=== PATIENT | male | born 1945 | race Caucasian/White ===

== ENCOUNTER 2018-11-26 09:00 | Observation (INO) | payer MEDICARE, OTHER ==
[~2018-11-26] VITALS: Ht 200.7 cm; Wt 161.0 kg
[2018-11-26] MEDS ORDERED: ONDANSETRON 4 MG (ZOFRAN) ORAL DISSOLVE TAB PO PRN (09:15)
[2018-11-26] MEDS ORDERED: ALPRAZolam 0.25 MG (XANAX) TAB PO PRN (09:15)
[2018-11-26] MEDS ORDERED: ACETAMINOPHEN 500 MG TAB (TYLENOL) PO PRN (09:15)
[2018-11-26] MEDS ORDERED: diphenhydrAMINE 25 MG TAB (BENADRYL) PO PRN (09:15)
[2018-11-26] MEDS ORDERED: DOCUSATE SODIUM 100 MG (COLACE) CAP PO PRN (09:15)
[2018-11-26] MEDS ORDERED: HYDROcodone/APAP 5 MG/325 MG (LORTAB) TAB PO PRN (09:15)
[2018-11-26] MEDS ORDERED: CALCIUM CARBONATE 500 MG (TUMS) TAB.CHEW PO PRN (09:15)
[2018-11-26] MEDS ORDERED: MELATONIN 3 MG TABLET PO PRN (09:15)
[2018-11-26] MEDS ORDERED: ONDANSETRON 4 MG/2 ML (SDV) Z0FRAN IVP PRN (09:15)
--- OUTSIDE RECORDS SUMMARY | 2018-11-26 09:38 | XMS REPORT ---
Author Author Nanda Herman [facility] Address [address] [place], [place] [id number] Care Team Providers Care Transmission Tester Name Role Phone Nanda Herman PCP Allergies and Adverse Reactions Name Reaction Notes SULFA (SULFONAMIDE ANTIBIOTICS) Plan of Treatment Planned Activity Comments Planned Date Planned Time Plan/Goal 2D Echo Complete - Adult 03/02/2018 12:00 AM Lexiscan Cardiolite 03/02/2018 12:00 AM Medications Active Name Start Date Estimated Completion Date SIG Comments Zyrtec 10 mg oral tablet take 1 tablet (10 mg) by oral route once daily pioglitazone 15 mg oral tablet take 1 tablet (15 mg) by oral route once daily omeprazole 20 mg oral capsule,delayed release(DR/EC) take 1 capsule (20 mg) by oral route once daily before a meal meloxicam 7.5 mg oral tablet take 1 tablet (7.5 mg) by oral route once daily metformin 500 mg oral tablet extended release 24 hr take 2 tablets (1,000 mg) by oral route once daily with the evening meal sertraline 100 mg oral tablet take 1 tablet (100 mg) by oral route once daily Fish Oil 1,000 mg (120 mg-180 mg) oral capsule Pfczlixc-Ftewt-JAA(with boron) 278-597-03-1 mg oral tablet Novolog U-100 Insulin aspart 100 unit/mL subcutaneous solution inject 40 units by subcutaneous route at each meal Lantus U-100 Insulin 100 unit/mL subcutaneous solution inject 40units in AM and 80 units at HS losartan 100 mg oral tablet 03/03/2018 02/26/2019 take 1 tablet (100 mg) by oral route once daily for 90 days Bevespi Aerosphere 9-4.8 mcg inhalation HFA aerosol inhaler 03/03/2018 09/29/2018 inhale 2 puffs by inhalation route 2 times per day in the morning and evening for 30 days Problem List Description Status Onset Dyspnea on exertion Active 03/02/2018 Morbid obesity Active 03/02/2018 Type II diabetes mellitus Active 03/02/2018 Lumbar degenerative disc disease Active 03/02/2018 Immunization deficiency Active 03/02/2018 Diaphoresis Active 03/02/2018 JULIAN (obstructive sleep apnea) Active 03/02/2018 Lung anomaly Active 03/02/2018 Renal mass Active 03/02/2018 Vital Signs Date Time BP-Sys(mm[Hg] BP-Madisyn(mm[Hg]) HR(bpm) RR(rpm) Temp WT HT HC BMI BSA BMI Percentile O2 Sat(%) 03/02/2018 9:26:00 AM 152 mmHg 62 mmHg 70 bpm 20 rpm 98.1 F 377.5 lbs 79 in 42.5266 kg/m 3.0894 m 96 % Social History Name Description Comments Tobacco Former smoker Alcohol Former retired History of Procedures Date Ordered Description Order Status 03/02/2018 12:00 AM INFLUENZA VAC 4 VALENT PRSRV FREE 3 YRS PLUS IM Reviewed Results Summary Not available. History Of Immunizations Name Date Admin Mfg Name Mfg Code Trade Name Lot# Route Inj Vis Given Vis Pub CVX Influenza 03/02/2018 GlaxoSmV[employer]ine SKB Flulaval quadrivalent [id number] Intramuscular Left Deltoid 03/02/2018 06/15/2018 158 History of Past Illness Name Date of Onset Comments Dyspnea on exertion 03/02/2018 2d echo and mps. continue aspirin therapy Morbid obesity 03/02/2018 discussed diet, exercise and weight loss Type II diabetes mellitus 03/02/2018 obtain last lab results. pt with stable hba1c by report. no current medication changes Lumbar degenerative disc disease 03/02/2018 stable for now. hx of 4 back surgeries Immunization deficiency 03/02/2018 influenza vaccination Diaphoresis 03/02/2018 obtain mps and 2d echo. pt with dyspnea, diaphoresis and lower extrem edema JULIAN (obstructive sleep apnea) 03/02/2018 encouraged pt to use cpap nightly. Lung anomaly 03/02/2018 hx of partial pneumonectomy. follows with dr. quinn. known copd. continues with inhalers. Renal mass 03/02/[address] results later this week. Dyspnea on exertion Mar 02 2018 9:44AM Morbid obesity Mar 02 2018 9:44AM Type II diabetes mellitus Mar 02 2018 9:44AM Lumbar degenerative disc disease Mar 02 2018 9:44AM Immunization deficiency Mar 02 2018 9:44AM Diaphoresis Mar 02 2018 9:44AM JULIAN (obstructive sleep apnea) Mar 02 2018 9:44AM Lung anomaly Mar 02 2018 9:44AM Renal mass Mar 02 2018 9:44AM Need for influenza vaccination Mar 02 2018 9:44AM Payers Insurance Name Company Name Plan Name Plan Number Policy Number Policy Group Number Start Date Medicare RHC Medicare RHC [id number] N/A Aetna Aetna [id number] N/A Medicare Part B Medicare Of [place] [id number] N/A Medicare Part A Medicare - Lab/Xray [id number] N/A History of Encounters Visit Date Visit Type Provider 03/02/2018 Office visit Nanda Herman MD 05/30/2015 [facility] Madelin Manzano MD 05/21/2015 [facility] Demarco Ford MD 11/13/2014 [facility] Demarco Ford MD
--- OUTSIDE RECORDS SUMMARY | 2018-11-26 09:38 | XMS REPORT | CCD ---
Author Author FREEMAN LANCE PEARSON Organization Unknown Address [address] [facility] [address] [place], [place] [id number] Care Team Providers Care Associate Publisher Name Role Phone RHONDA CHE, DANNIELLE DEMARCO Attphys F., DALY NASST C., LISA NASST M., LORENZA Gracai NASST C., TARYN Luis NASST S., LISA NASST P., PETRA NASST K., TARYN Gracia NASST R., CARLA Gracia NASST Vital Signs Vital Sign Value Unit Date/Time Recent/Initial? Weight Measured 385 lbs 05/21/2015 11:02 Initial VS Height 79 in 05/21/2015 11:02 Initial VS BMI (Body Mass Index) 43.37 kg/m^2 05/21/2015 11:02 Initial VS BSA (Body Surface Area) 3.12 m^2 05/21/2015 11:02 Initial VS BP Systolic 166 mmHg 05/24/2015 14:34 Initial VS BP Diastolic 68 mmHg 05/24/2015 14:34 Initial VS Respiratory Rate 16 bpm 05/24/2015 14:34 Initial VS Heart Rate 78 bpm 05/24/2015 14:34 Initial VS O2 % BldC Oximetry 96 % 05/24/2015 14:34 Initial VS Body Temperature 97.4 degrees 05/24/2015 14:34 Initial VS BP Systolic 118 mmHg 06/01/2015 15:31 Most Recent VS BP Diastolic 55 mmHg 06/01/2015 15:31 Most Recent VS Respiratory Rate 18 bpm 06/01/2015 15:31 Most Recent VS Heart Rate 102 bpm 06/01/2015 15:31 Most Recent VS O2 % BldC Oximetry 94 % 06/01/2015 15:31 Most Recent VS Body Temperature 99 degrees 06/01/2015 17:00 Most Recent VS Allergies Allergy Code Allergy Type Reaction Status SULFA (sulfonamide) 0 Drug allergy Active MORPHINE 7052 Drug allergy Active Procedures Procedure Code Procedure Type Date Replacement of Left Knee Joint with Synthetic Substitute, Cemented, Open A [id number] ICD-10 PCS 05/30/2015 OXYGEN/HOUR 609001660 SNOMED CT 05/30/2015 THERAPEP TREATMENT 227692171 SNOMED CT 05/30/2015 THERAPEP SUBSEQUENT 250492432 SNOMED CT 05/30/2015 THERAPEP SUBSEQUENT 917632045 SNOMED CT 05/31/2015 THERAPEP SUBSEQUENT 560940537 SNOMED CT 05/31/2015 THERAPEP SUBSEQUENT 178647345 SNOMED CT 05/31/2015 THERAPEP SUBSEQUENT 088086292 SNOMED CT 05/31/2015 THERAPEP SUBSEQUENT 823660812 SNOMED CT 06/01/2015 BEDSIDE GLUCOSE 65657588 SNOMED CT 05/30/2015 CBC W/ AUTO DIFF (RFLX MAN DIFF IF IND) 4765653 SNOMED CT 05/31/2015 CBC W/ AUTO DIFF (RFLX MAN DIFF IF IND) 5320264 SNOMED CT 06/01/2015 BEDSIDE GLUCOSE 43618221 SNOMED CT 05/30/2015 BEDSIDE GLUCOSE 84504104 SNOMED CT 05/30/2015 BASIC METABOLIC PANEL 824586005 SNOMED CT 05/31/2015 BEDSIDE GLUCOSE 68103938 SNOMED CT 05/31/2015 ^CBC W/AUTO DIFF 0457861 SNOMED CT 05/31/2015 BEDSIDE GLUCOSE 38566728 SNOMED CT 05/31/2015 UA W/MICRO C&S IF IND 506330707 SNOMED CT 05/31/2015 BASIC METABOLIC PANEL 211311113 SNOMED CT 06/01/2015 BEDSIDE GLUCOSE 39662095 SNOMED CT 05/31/2015 BEDSIDE GLUCOSE 91932147 SNOMED CT 05/31/2015 BEDSIDE GLUCOSE 94548027 SNOMED CT 06/01/2015 ^CBC W/AUTO DIFF 3360872 SNOMED CT 06/01/2015 BEDSIDE GLUCOSE 80781835 SNOMED CT 06/01/2015 KNEE 1V OR 2V 88586377 SNOM[address] CT 05/30/2015 CX CHEST [address] 05/31/2015 PT EVALUATION 266392508 SNOM[address] CT 05/30/2015 PT GROUP THERAPY 170461951 SNOMED CT 05/31/2015 PT GROUP THERAPY 009157700 SNOMED CT 05/31/2015 PT GROUP THERAPY 208192384 [facility] 06/01/2015 PT GAIT TRAINING/STAIRS EA 15 MIN 56197891 [facility] CT 06/01/2015 PT GROUP THERAPY 434142367 [facility] CT 06/01/2015 History of Immunizations Immunization Code Date Td (adult), adsorbed 09/13/2004 Td (adult), adsorbed 12/17/2006 influenza, split (incl. purified surface antigen) 15 03/27/1997 influenza, split (incl. purified surface antigen) 15 04/09/1998 influenza, split (incl. purified surface antigen) 15 03/18/1999 influenza, split (incl. purified surface antigen) 15 05/13/2000 influenza, split (incl. purified surface antigen) 15 04/14/2001 influenza, split (incl. purified surface antigen) 15 04/06/2002 influenza, split (incl. purified surface antigen) 15 04/18/2003 influenza, split (incl. purified surface antigen) 15 05/03/2004 influenza, split (incl. purified surface antigen) 15 04/21/2005 influenza, split (incl. purified surface antigen) 15 04/13/2006 influenza, split (incl. purified surface antigen) 15 03/15/2007 influenza, split (incl. purified surface antigen) 15 03/22/2008 pneumococcal polysaccharide PPV23 33 04/20/2000 pneumococcal polysaccharide PPV23 33 03/30/2012 Influenza, seasonal, injectable 141 03/12/2013 Influenza, seasonal, injectable 141 03/31/2014 Influenza, seasonal, injectable 141 04/15/2015 Problems Problem Code Start Date Resolved Date Status Primary osteoarthritis of left knee 683346690 05/30/2015 Active Post op pain 760582484 05/30/2015 Active Status post knee replacement 1905953141835 05/30/2015 Active Results BASIC METABOLIC PANEL - Collect Date/Time: 06/01/2015 06:00 Test Name Code Test Result Test Units Test Ref Range GLUCOSE 2345-7 229 MG/DL L=70 H=100 SODIUM 2951-2 132 MEQ/L L=135 H=148 POTASSIUM 2823-3 4.1 MEQ/L L=3.5 H=5.3 CHLORIDE 2075-0 104 MEQ/L L=96 H=110 CO2 2028-9 20 MEQ/L L=22 H=29 BUN 3094-0 15 MG/DL L=8 H=22 CREATININE 2160-0 0.9 MG/DL L=0.6 H=1.6 CALCIUM 55447-5 8.9 MG/DL L=8.2 H=10.6 AGE 69 yrs GFR NonAA 84 GFR AA 102 eGFR >60 N/A eGFR AA* >60 N/A BASIC METABOLIC PANEL - Collect Date/Time: 05/31/2015 06:30 Test Name Code Test Result Test Units Test Ref Range GLUCOSE 2345-7 196 MG/DL L=70 H=100 SODIUM 2951-2 132 MEQ/L L=135 H=148 POTASSIUM 2823-3 4.5 MEQ/L L=3.5 H=5.3 CHLORIDE 2075-0 101 MEQ/L L=96 H=110 CO2 2028-9 22 MEQ/L L=22 H=29 BUN 3094-0 21 MG/DL L=8 H=22 CREATININE 2160-0 1.1 MG/DL L=0.6 H=1.6 CALCIUM 22730-2 8.7 MG/DL L=8.2 H=10.6 AGE 69 yrs GFR NonAA 67 GFR AA 81 eGFR >60 N/A eGFR AA* >60 N/A BEDSIDE GLUCOSE - Collect Date/Time: 06/01/2015 11:33 Test Name Code Test Result Test Units Test Ref Range GLUCOSE POCT 236 MG/DL L=70 H=100 BEDSIDE GLUCOSE - Collect Date/Time: 06/01/2015 05:25 Test Name Code Test Result Test Units Test Ref Range GLUCOSE POCT 206 MG/DL L=70 H=100 BEDSIDE GLUCOSE - Collect Date/Time: 05/31/2015 20:51 Test Name Code Test Result Test Units Test Ref Range GLUCOSE POCT 149 MG/DL L=70 H=100 BEDSIDE GLUCOSE - Collect Date/Time: 05/31/2015 16:46 Test Name Code Test Result Test Units Test Ref Range GLUCOSE POCT 190 MG/DL L=70 H=100 BEDSIDE GLUCOSE - Collect Date/Time: 05/31/2015 11:49 Test Name Code Test Result Test Units Test Ref Range GLUCOSE POCT 224 MG/DL L=70 H=100 BEDSIDE GLUCOSE - Collect Date/Time: 05/31/2015 06:31 Test Name Code Test Result Test Units Test Ref Range GLUCOSE POCT 198 MG/DL L=70 H=100 BEDSIDE GLUCOSE - Collect Date/Time: 05/30/2015 21:04 Test Name Code Test Result Test Units Test Ref Range GLUCOSE POCT 228 MG/DL L=70 H=100 BEDSIDE GLUCOSE - Collect Date/Time: 05/30/2015 15:48 Test Name Code Test Result Test Units Test Ref Range GLUCOSE POCT 328 MG/DL L=70 H=100 BEDSIDE GLUCOSE - Collect Date/Time: 05/30/2015 11:52 Test Name Code Test Result Test Units Test Ref Range GLUCOSE POCT 253 MG/DL L=70 H=100 CBC W/ AUTO DIFF (RFLX MAN DIFF IF IND) - Collect Date/Time: 06/01/2015 06:00 Test Name Code Test Result Test Units Test Ref Range WBC 62338-9 8.9 TH/CMM L=4.5 H=10.8 RBC 789-8 3.34 ML/CMM L=4.70 H=6.10 HGB 718-7 10.4 G/DL L=14.0 H=18.0 HCT 4544-3 32.4 % L=42.0 H=52.0 MCV 97 FL L=81 H=99 MCH 31.1 PG L=27.0 H=33.0 MCHC 32.1 G/DL L=31.0 H=36.0 RDW SD 62 FL L=36 H=50 RDW CV 17.6 % L=0.0 H=14.8 MPV 11.0 FL L=9.3 H=12.5 PLT 777-3 107 TH/CMM L=130 H=440 NRBC# 0.00 TH/CMM L=0.00 H=0.00 NRBC% 0.0 /100WBC L=0.0 H=2.0 %NEUT 64.2 % %LYMP 19.4 % %MONO 15.2 % %EOS 1.1 % %BASO 0.1 % #NEUT 5.73 TH/CMM L=2.10 H=8.20 #LYMP 1.73 TH/CMM L=0.90 H=5.20 #MONO 1.36 TH/CMM L=0.16 H=1.00 #EOS 0.10 TH/CMM L=0.00 H=0.80 #BASO 0.01 TH/CMM L=0.00 H=0.20 MANUAL DIFF NOT IND N/A CBC W/ AUTO DIFF (RFLX MAN DIFF IF IND) - Collect Date/Time: 05/31/2015 06:30 Test Name Code Test Result Test Units Test Ref Range WBC 30214-8 8.9 TH/CMM L=4.5 H=10.8 RBC 789-8 3.68 ML/CMM L=4.70 H=6.10 HGB 718-7 11.3 G/DL L=14.0 H=18.0 HCT 4544-3 35.7 % L=42.0 H=52.0 MCV 97 FL L=81 H=99 MCH 30.7 PG L=27.0 H=33.0 MCHC 31.7 G/DL L=31.0 H=36.0 RDW SD 62 FL L=36 H=50 RDW CV 17.4 % L=0.0 H=14.8 MPV 10.6 FL L=9.3 H=12.5 PLT 777-3 115 TH/CMM L=130 H=440 NRBC# 0.00 TH/CMM L=0.00 H=0.00 NRBC% 0.0 /100WBC L=0.0 H=2.0 %NEUT 59.9 % %LYMP 24.9 % %MONO 13.1 % %EOS 1.9 % %BASO 0.2 % #NEUT 5.34 TH/CMM L=2.10 H=8.20 #LYMP 2.22 TH/CMM L=0.90 H=5.20 #MONO 1.17 TH/CMM L=0.16 H=1.00 #EOS 0.17 TH/CMM L=0.00 H=0.80 #BASO 0.02 TH/CMM L=0.00 H=0.20 MANUAL DIFF NOT IND N/A UA W/MICRO C&S IF IND - Collect Date/Time: 05/31/2015 17:30 Test Name Code Test Result Test Units Test Ref Range COLOR YELLOW N/A NL: YELLOW APPEARANCE CLEAR N/A NL: CLEAR SPEC GRAV 1.020 N/A NL: 1.002 - 1.022 pH 5.5 N/A NL: 5 - 9 PROTEIN NEGATIVE N/A NL: NEGATIVE mg/dl GLUCOSE NEGATIVE N/A NL: NEGATIVE mg/dl KETONE TRACE N/A NL: NEGATIVE mg/dl BILIRUBIN NEGATIVE N/A NL: NEGATIVE BLOOD SMALL N/A NL: NEGATIVE NITRITE NEGATIVE N/A NL: NEGATIVE LEUK SCREEN TRACE N/A NL: NEGATIVE WBC/HPF 0-5 N/A NL: NEGATIVE RBC/HPF RARE N/A NL: NEGATIVE CASTS/LPF NEGATIVE N/A NL: NEGATIVE CRYSTALS NEGATIVE N/A NL: NEGATIVE MUCOUS THRDS NEGATIVE N/A NL: NEGATIVE BACTERIA NEGATIVE N/A NL: NEGATIVE EPITH CELLS NEGATIVE N/A NL: NEGATIVE TRICHOMONAS NEGATIVE N/A NL: NEGATIVE YEAST NEGATIVE N/A NL: NEGATIVE CULT SET UP? NO N/A Active Medications Medication Code Dose Units Frequency Route Modification Start Date/Time Aspirin 325MG Oral Tablet, Enteric Coated 725224 1 TABLET EVERY 12 HOURS BY MOUTH 05/31/2015 17:18 Prescription Detail 1 TABLET BY MOUTH EVERY 12 HOURS begin 24hrs after the last xarelto dose Combivent Respimat 100MCG-20MCG/Actuati Inhalation [place] 6663783 1 PUFF TWO TIMES A DAY INHALATION 05/31/2015 17:15 Prescription Detail 1 PUFF INHALATION TWO TIMES A DAY Docusate Sodium 100MG Oral Capsule 9273391 1 TABLET TWO TIMES A DAY BY MOUTH 05/31/2015 17:15 Prescription Detail 1 TABLET BY MOUTH TWO TIMES A DAY Hold with loose stools glipiZIDE 10MG Oral Tablet 931298 10 MILLIGRAMS DAILY ORAL 05/31/2015 17:15 Prescription Detail 10 MILLIGRAMS ORAL DAILY GLUCOSAMINE/CHONDROITIN 0 1 EACH TWO TIMES A DAY ORAL 05/31/2015 17:15 Prescription Detail 1 EACH ORAL TWO TIMES A DAY Levemir 100U/1ML Subcutaneous Solution 687636 70 UNIT AT BEDTIME SUBCUTANEOUS 05/31/2015 17:15 Prescription Detail 70 UNIT SUBCUTANEOUS AT BEDTIME Lisinopril 20MG Oral Tablet 776517 20 MILLIGRAMS DAILY ORAL 05/31/2015 17:15 Prescription Detail 20 MILLIGRAMS ORAL DAILY NovoLOG 100U/1ML Subcutaneous Solution 791054 32 UNIT THREE TIMES A DAY SUBCUTANEOUS 05/31/2015 17:15 Prescription Detail 32 UNIT SUBCUTANEOUS THREE TIMES A DAY Ocuvite Oral Tablet 898886 1 EACH DAILY ORAL 05/31/2015 17:15 Prescription Detail 1 EACH ORAL DAILY oxyCODONE HCl-acetaminophen 5MG-325MG Oral Tablet 4594898 1 - 2 TABLET NEEDED EVERY 4 HR BY MOUTH 05/31/2015 17:15 Prescription Detail 1 - 2 TABLET BY MOUTH NEEDED EVERY 4 HR Proventil HFA 0.09MG/1INH Inhalation Aerosol Powder 286402 1 PUFF NEEDED INHALATION 05/31/2015 17:15 Prescription Detail 1 PUFF INHALATION NEEDED Sertraline 100MG Oral Tablet 436122 100 MILLIGRAMS DAILY ORAL 05/31/2015 17:15 Prescription Detail 100 MILLIGRAMS ORAL DAILY Thera-M Enhanced 90MG-0.03MG-0.15MG-4 Oral Tablet 344489 1 TABLET DAILY BY MOUTH 05/31/2015 17:15 Prescription Detail 1 TABLET BY MOUTH DAILY VITAMIN B-12 0 500 MICROGRAM TWO TIMES A DAY ORAL 05/31/2015 17:15 Prescription Detail 500 MICROGRAM ORAL TWO TIMES A DAY Xarelto 10MG Oral Tablet 0832586 1 TABLET DAILY BY MOUTH 05/31/2015 17:15 Prescription Detail 1 TABLET BY MOUTH DAILY Medications Administered During Visit Medication Dose Units Frequency Route Date/Time of Last Dose LR 1000ML IV [PREDEFINED] CONT IV IV 05/31/2015 00:39 TEMAZEPAM [RESTORIL] CAPSULE : 7.5 MG 1 MG PRN PO 05/31/2015 20:01 CEFAZOLIN [ANCEF] 2 GM IV PREMIX BAG Q6H IVPB 05/31/2015 06:14 VITAMIN (LH SUB FOR ALL MULTIVITAMINS) 1 TAB DAILY PO 06/01/2015 08:19 ASCORBIC ACID [VITAMIN C] TAB : 500 MG 500 MG DAILY PO 06/01/2015 08:19 FERROUS SULFATE 325MG TABLET 325 MG BID PO 06/01/2015 08:19 DOCUSATE SODIUM 100 MG [COLACE] CAPSULE 100 MG BID PO 06/01/2015 08:19 TAMSULOSIN [FLOMAX] CAP: 0.4MG 0.4 MG DAILY PO 06/01/2015 08:19 RIVAROXABAN [XARELTO] TABLET : 10MG 10 MG X1 PO 05/31/2015 11:43 RIVAROXABAN [XARELTO] TABLET : 10MG 10 MG DAILY PO 06/01/2015 08:19 HYDROmorphone [DILAUDID] INJ: 2MG/ML 1 MG PRN Q 1 HR IVP 05/31/2015 23:05 NORCO [HYDROCODONE/APAP] 10/325MG TAB 1 TAB PRN PO 05/30/2015 23:11 COMBIVENT INHALER (IPATROPIUM/ALBUTEROL) 1 EA BID INHALE 06/01/2015 08:19 LISINOPRIL 20MG TAB 20 MG DAILY PO 06/01/2015 08:19 SERTRALINE [ZOLOFT] TABLET: 50 MG 100 MG DAILY PO 06/01/2015 08:19 CYANOCOBALAMIN [VITAMIN B12] TAB:1000MCG 500 MCG BID PO 06/01/2015 08:19 GLIPIZIDE [GLUCOTROL] TABLET: 5 MG 10 MG ACSUPPER PO 05/31/2015 17:18 INSULIN [NOVOLOG] 100UNITS/ML (SQ) 10ML 6 Unit(s) PRN SUB Q 06/01/2015 11:42 INSULIN [LEVEMIR] 100UNITS/ML 10ML VIAL 70 UNIT HS SQ 05/31/2015 21:11 INSULIN [NOVOLOG] 100UNITS/ML (SQ) 10ML 25 EA AC SUB Q 05/31/2015 11:50 PERCOCET 5/325 MG TABLET (ROXICET) 1 TAB PRN PO 06/01/2015 16:11 INSULIN [NOVOLOG] 100UNITS/ML (SQ) 10ML 32 EA AC SUB Q 06/01/2015 11:51 LEVOFLOXACIN [LEVAQUIN] TABLET: 750MG 750 MG DAILY PO 06/01/2015 13:55 Encounters Encounter Diagnosis Diagnosis Code Start Date Unilateral primary osteoarthritis, left knee M1712 05/30/2015 Social History Smoking Status Code Start Date End Date Never smoker [id number] Patient Decision Aids Patient Decision Aid PAIN MANAGEMENT AT HOME PATIENT PORTAL ACCESS Discharge Instructions You were admitted to [facility] on 05/30/2015 with a principal diagnosis of Unilateral primary osteoarthritis, left knee. You were discharged from [facility] on 06/01/2015. Should you have any questions prior to discharge, please contact a member of your healthcare team. If you have left the hospital and have any questions, please contact your primary care physician. HOME DIET: as before hospitalization CONDITION AT DISMISSAL Stable. SPECIAL INSTRUCTIONS: Take Xarelto 10mg pill by mouth daily for 10 days.When taking Xarelto do not take Ibuprofen, motrin, advil, aleve, and mobic. 24 hours after the last Xarelto pill start taking Aspirin 325mg pill by mouth 2 times a day for 4 weeks. SCRIPTS WRITTEN BY DOCTOR GIVEN TO PATIENT? Yes, for what? docusate sodium, Xarelto, Percocet, Aspirin, outpatient therapy Education performed on new medications. Verbalizes understanding of instructions. PRIMARY CARE PHYSICIAN OR PRACTITIONER: Dannielle Gallo MD, . INSTRUCTIONS GIVEN AND DISCHARGE TO: Terrell newman. VOICES UNDERSTANDING OF INSTRUCTIONS: Yes. INSTRUCTIONS GIVEN BY (TYPE IN NAME AND DATE) Lisa Amezquita RN 06/01/15 CHIEF COMPLAINT: C/O JOINT PAIN Chief Complaint and Reason For Visit Chief Complaint Date of Onset TOTAL KNEE LEFT Function Status Unknown or Not Available. Plan of Care Unknown or Not Available. Referral/Transition of Care Unknown or Not Available.
--- OUTSIDE RECORDS SUMMARY | 2018-11-26 09:38 | XMS REPORT ---
Author Author Nanda Herman [facility] Address [address] [place], [place] [id number] Care Team Providers Care Chief Controller Station Name Role Phone Nanda Herman PCP Allergies and Adverse Reactions Name Reaction Notes SULFA (SULFONAMIDE ANTIBIOTICS) Plan of Treatment Not available. Medications Active Name Start Date Estimated Completion [...] 1,000 mg (120 mg-180 mg) oral capsule Ubjfjwum-Uzabr-QUF(with boron) 812-833-70-1 mg oral tablet Novolog U-100 Insulin aspart [...] Ordered Description Order Status 03/02/2018 12:00 AM TTE W/DOPPLER COMPLETE Reviewed 03/02/2018 12:00 AM MYOCARDIAL SPECT MULTIPLE STUDIES Reviewed 03/02/2018 12:00 AM INFLUENZA VAC 4 VALENT PRSRV FREE 3 YRS PLUS IM Reviewed Results Summary Not available. History Of Immunizations Name Date Admin Mfg Name Mfg Code Trade Name Lot# Route Inj Vis Given Vis Pub CVX Influenza 03/02/2018 [employer] SKB Flulaval quadrivalent [id number] Intramuscular Left Deltoid [...] Number Policy Group Number Start Date Medicare C Medicare RHC [id number] N/A Aetna Aetna [id number] N/A Medicare Part B Medicare Of [place] [id number] N/A Medicare Part A Medicare - Lab/Xray [id number] N/A History of Encounters Visit Date Visit Type Provider 03/02/2018 Office visit Nanda Herman MD 05/30/2015 [facility] Madelin Manzano MD 05/21/2015 [facility] Demarco Ford MD 11/13/2014 [facility] Demarco Ford MD
--- OUTSIDE RECORDS SUMMARY | 2018-11-26 09:38 | XMS REPORT ---
Discharge Summary 2.1 Created on: ISELA YEE : 1945 Sex: Male Author Author MARLENE CAAL Unknown Address [address] [place], [place] [id number] Care Team Providers Care Screen Cleaner Name Role Phone Xwatchlist DALY SÁNCHEZ Xwatchlist VITOR LORENZ MD Anesth RHONDA DEMARCO MD Attending STEPHIE Torres MD Dock Coordinator [facility] ELIEZER Chambers MD [facility] Functional Status No Data Found Immunization Immunization Date Status Additional Notes Code Code System Td (adult), 2 Lf tetanus toxoid, preservative free, adsorbed 09/13/2004 Completed 09 CVX Td (adult), 2 Lf tetanus toxoid, preservative free, adsorbed 12/17/2006 Completed 09 CVX influenza, split (incl. purified surface antigen) 03/27/1997 Completed 15 CVX influenza, split (incl. purified surface antigen) 04/09/1998 Completed 15 CVX influenza, split (incl. purified surface antigen) 03/18/1999 Completed 15 CVX influenza, split (incl. purified surface antigen) 05/13/2000 Completed 15 CVX influenza, split (incl. purified surface antigen) 04/14/2001 Completed 15 CVX influenza, split (incl. purified surface antigen) 04/06/2002 Completed 15 CVX influenza, split (incl. purified surface antigen) 04/18/2003 Completed 15 CVX influenza, split (incl. purified surface antigen) 05/03/2004 Completed 15 CVX influenza, split (incl. purified surface antigen) 04/21/2005 Completed 15 CVX influenza, split (incl. purified surface antigen) 04/13/2006 Completed 15 CVX influenza, split (incl. purified surface antigen) 03/15/2007 Completed 15 CVX influenza, split (incl. purified surface antigen) 03/22/2008 Completed 15 CVX pneumococcal polysaccharide PPV23 04/20/2000 Completed 33 CVX pneumococcal polysaccharide PPV23 03/30/2012 Completed 33 CVX influenza, unspecified formulation 02/13/2018 Completed 88 CVX pneumococcal, unspecified formulation 03/15/2017 Completed 109 CVX Pneumococcal conjugate PCV 13 07/03/2015 Completed 133 CVX Influenza, high dose seasonal 03/18/2016 Completed 135 CVX Influenza, high dose seasonal 04/07/2017 Completed 135 CVX Influenza, seasonal, injectable 03/12/2013 Completed 141 CVX Influenza, seasonal, injectable 03/31/2014 Completed 141 CVX Influenza, seasonal, injectable 04/15/2015 Completed 141 CVX influenza, injectable, quadrivalent 03/02/2018 Completed 158 CVX Mental Status No Data Found Results BEDSIDE GLUCOSE - Collect Date/Time: 04/02/2018 16:28 [employer] ID: [id number] [address], [place], [place], [id number] [facility] Materialise ID: [id number] [address], [place], [place], [address] LOINC: 98211-0 Test Value Unit Reference Range Code Code System GLUCOSE POCT 271 MG/DL L=70 H=100 02979-4 LOINC BEDSIDE GLUCOSE - Collect Date/Time: 04/02/2018 12:13 [employer] ID: [id number] [address], [place], [place], [id number] [facility] Materialise ID: [id number] [address], [place], [place], [address] LOINC: 05739-1 Test Value Unit Reference Range Code Code System GLUCOSE POCT 332 MG/DL L=70 H=100 27309-0 LOINC BEDSIDE GLUCOSE - Collect Date/Time: 04/02/2018 08:17 [facility] Materialise ID: [id number] [address], [place], [place], [id number] [facility] ID: [id number] [address], [place], [place], [id number] LOINC: 55068-4 Test Value Unit Reference Range Code Code System GLUCOSE POCT 256 MG/DL L=70 H=100 96781-1 LOINC CBC W/ AUTO DIFF (RFLX MAN DIFF IF IND) - Collect Date/Time: 04/02/2018 06:15 [facility] ID: [id number] [address] [facility] [address], [place], [place], [id number] [facility] [employer] [facility] ID: [id number] [address] [facility] [address] [place], [place], [address] LOINC: 50965-2 Test Value Unit Reference Range Code Code System WBC 8.8 TH/CMM L=4.5 H=10.8 62688-5 LOINC RBC 3.71 ML/CMM L=4.70 H=6.10 789-8 LOINC HGB 11.4 G/DL L=14.0 H=18.0 718-7 LOINC HCT 36.0 % L=42.0 H=52.0 4544-3 LOINC MCV 97 FL L=81 H=99 MCH 30.7 PG L=27.0 H=33.0 MCHC 31.7 G/DL L=31.0 H=36.0 RDW SD 62 FL L=36 H=50 RDW CV 17.2 % L=0.0 H=14.8 MPV 10.4 FL L=9.3 H=12.5 PLT 95 TH/CMM L=130 H=440 777-3 LOINC NRBC# 0.00 TH/CMM L=0.00 H=0.00 NRBC% 0.0 /100WBC L=0.0 H=2.0 %NEUT 63.2 % %LYMP 21.0 % %MONO 13.5 % %EOS 1.3 % %BASO 0.3 % #NEUT 5.56 TH/CMM L=2.10 H=8.20 #LYMP 1.85 TH/CMM L=0.90 H=5.20 #MONO 1.19 TH/CMM L=0.16 H=1.00 #EOS 0.11 TH/CMM L=0.00 H=0.80 #BASO 0.03 TH/CMM L=0.00 H=0.20 MANUAL DIFF NOT IND BEDSIDE GLUCOSE - Collect Date/Time: 04/01/2018 21:07 [facility] [employer] ID: [id number] [address], [place], [place], [address] [employer] ID: [id number] [address], [place], [place], [address] LOINC: 73054-3 Test Value Unit Reference Range Code Code System GLUCOSE POCT 315 MG/DL L=70 H=100 36473-3 [facility] BEDSIDE GLUCOSE - Collect Date/Time: 04/01/2018 17:20 [facility] ID: [id number] [address], [place], [place], [address] [employer] ID: [id number] [address], [place], [place], [address] LOINC: 12775-7 Test Value Unit Reference Range Code Code System GLUCOSE POCT 230 MG/DL L=70 H=100 05365-3 [facility] BEDSIDE GLUCOSE - Collect Date/Time: 04/01/2018 11:48 [facility] ID: [id number] [address], [place], [place], [address] [facility] ID: [id number] [address], [place], [place], [address] LOINC: 52658-2 Test Value Unit Reference Range Code Code System GLUCOSE POCT 271 MG/DL L=70 H=100 82405-0 LOINC BEDSIDE GLUCOSE - Collect Date/Time: 04/01/2018 07:45 [facility] ID: [id number] [address], [place], [place], [address] [facility] ID: [id number] [address], [place], [place], [address] LOINC: 64941-4 Test Value Unit Reference Range Code Code System GLUCOSE POCT 169 MG/DL L=70 H=100 36526-8 LOINC HEMOGLOBIN A1C - Collect Date/Time: 04/01/2018 06:45 [facility] ID: [id number] [address], [place], [place], [address] [facility] ID: [id number] [address], [place], [place], [address] LOINC: 82688-5 Test Value Unit Reference Range Code Code System HGB A1C 6.2 % L=4.0 H=6.4 34358-7 LOINC Est Avg Glucose 131.2 mg/dL 36504-0 LOINC LIPID PANEL - Collect Date/Time: 04/01/2018 06:45 [facility] ID: [id number] [address], [place], [place], [address] [facility] ID: [id number] [address], [place], [place], [address] LOINC: 27314-9 Test Value Unit Reference Range Code Code System TRIGLYCERIDES 96 MG/DL L=0 H=135 3043-7 LOINC CHOLESTEROL 99 MG/DL L=0 H=199 2093-3 LOINC HDL 32 MG/DL L=27 H=67 2085-9 LOINC TOT CHOL/HDL 3.1 L=0.0 H=5.0 LDL (CALC) 48 MG/DL L=0 H=129 79756-2 LOINC CBC W/ AUTO DIFF (RFLX MAN DIFF IF IND) - Collect Date/Time: 04/01/2018 06:45 [facility] ID: [id number] [address], [place], [place], [id number] [facility] [employer] [facility] ID: [id number] [address], [place], [place], [address] LOINC: 76288-1 Test Value Unit Reference Range Code Code System WBC 7.9 TH/CMM L=4.5 H=10.8 35514-4 LOINC RBC 3.83 ML/CMM L=4.70 H=6.10 789-8 LOINC HGB 11.8 G/DL L=14.0 H=18.0 718-7 LOINC HCT 37.9 % L=42.0 H=52.0 4544-3 LOINC MCV 99 FL L=81 H=99 MCH 30.8 PG L=27.0 H=33.0 MCHC 31.1 G/DL L=31.0 H=36.0 RDW SD 61 FL L=36 H=50 RDW CV 16.9 % L=0.0 H=14.8 MPV 10.8 FL L=9.3 H=12.5 PLT 98 TH/CMM L=130 H=440 777-3 LOINC NRBC# 0.00 TH/CMM L=0.00 H=0.00 NRBC% 0.0 /100WBC L=0.0 H=2.0 %NEUT 71.6 % %LYMP 15.5 % %MONO 11.0 % %EOS 1.0 % %BASO 0.4 % #NEUT 5.66 TH/CMM L=2.10 H=8.20 #LYMP 1.23 TH/CMM L=0.90 H=5.20 #MONO 0.87 TH/CMM L=0.16 H=1.00 #EOS 0.08 TH/CMM L=0.00 H=0.80 #BASO 0.03 TH/CMM L=0.00 H=0.20 MANUAL DIFF NOT IND BEDSIDE GLUCOSE - Collect Date/Time: 04/01/2018 02:32 [facility] ID: [id number] [address], [place], [place], [address] [facility] ID: [id number] [address], [place], [place], [address] LOINC: 45130-8 Test Value Unit Reference Range Code Code System GLUCOSE POCT 139 MG/DL L=70 H=100 20331-3 LOINC BEDSIDE GLUCOSE - Collect Date/Time: 03/31/2018 23:20 [facility] [employer] ID: [id number] [address], [place], [place], [address] [employer] ID: [id number] [address], [place], [place], [address] LOINC: 72566-4 Test Value Unit Reference Range Code Code System GLUCOSE POCT 149 MG/DL L=70 H=100 78219-9 LOINC BEDSIDE GLUCOSE - Collect Date/Time: 03/31/2018 20:32 [facility] [employer] ID: [id number] [address], [place], [place], [address] [employer] ID: [id number] [address], [place], [place], [address] LOINC: 34905-3 Test Value Unit Reference Range Code Code System GLUCOSE POCT 172 MG/DL L=70 H=100 10628-6 LOINC BEDSIDE GLUCOSE - Collect Date/Time: 03/31/2018 17:20 [facility] ID: [id number] [address], [place], [place], [address] [facility] ID: [id number] [address], [place], [place], [address] LOINC: 14335-4 Test Value Unit Reference Range Code Code System GLUCOSE POCT 148 MG/DL L=70 H=100 56975-6 LOINC BEDSIDE GLUCOSE - Collect Date/Time: 03/31/2018 15:54 [facility] ID: [id number] [address], [place], [place], [address] [facility] ID: [id number] [address], [place], [place], [address] LOINC: 05649-9 Test Value Unit Reference Range Code Code System GLUCOSE POCT 162 MG/DL L=70 H=100 41170-4 LOINC CBC W/ AUTO DIFF (RFLX MAN DIFF IF IND) - Collect Date/Time: 03/31/2018 13:00 [facility] ID: [id number] [address], [place], [place], [address] [facility] ID: [id number] [address], [place], [place], [address] LOINC: 92224-8 Test Value Unit Reference Range Code Code System WBC 6.1 TH/CMM L=4.5 H=10.8 97104-1 LOINC RBC 4.63 ML/CMM L=4.70 H=6.10 789-8 LOINC HGB 14.1 G/DL L=14.0 H=18.0 718-7 LOINC HCT 45.0 % L=42.0 H=52.0 4544-3 LOINC MCV 97 FL L=81 H=99 MCH 30.5 PG L=27.0 H=33.0 MCHC 31.3 G/DL L=31.0 H=36.0 RDW SD 58 FL L=36 H=50 RDW CV 16.1 % L=0.0 H=14.8 MPV 10.4 FL L=9.3 H=12.5 PLT 115 TH/CMM L=130 H=440 777-3 LOINC NRBC# 0.00 TH/CMM L=0.00 H=0.00 NRBC% 0.0 /100WBC L=0.0 H=2.0 %NEUT 67.4 % %LYMP 21.1 % %MONO 9.4 % %EOS 1.3 % %BASO 0.5 % #NEUT 4.08 TH/CMM L=2.10 H=8.20 #LYMP 1.28 TH/CMM L=0.90 H=5.20 #MONO 0.57 TH/CMM L=0.16 H=1.00 #EOS 0.08 TH/CMM L=0.00 H=0.80 #BASO 0.03 TH/CMM L=0.00 H=0.20 MANUAL DIFF NOT IND BEDSIDE GLUCOSE - Collect Date/Time: 03/31/2018 12:58 [employer] ID: [id number] [address] [facility] [address], [place], [place], [id number] [facility] [employer] ID: [id number] [address] [facility] [address], [place], [place], [address] LOINC: 73098-2 Test Value Unit Reference Range Code Code System GLUCOSE POCT 199 MG/DL L=70 H=100 63425-6 LOINC KNEE 1V OR 2V - Completed: 03/31/2018 15:54 LOINC: EXAMINATION:KNEE 1V OR 2VREASON FOR EXAM:Post-Op Evaluation Left/Right?: RIGHT COMPARISON:None available.TECHNIQUE: AP and lateral views of the right knee were obtained. FINDINGS:There is a right total knee arthroplasty. No periprosthetic lucency or fracture is seen. Alignment is near anatomic. IMPRESSION:Right total knee arthroplasty.Reviewed and Electronically Signed by: Ayo Valencia MD DABRSigned Date/Time: 04/01/2018 3:53 PMJob ID#: [id number] Social History Type Status Start Date End Date Code Code System Smoking History Never smoker (Never Smoked) 932901001 SNOMED-CT Smoking History Former smoker 2138020 SNOMED-CT Vital Signs Vital Sign Value Unit [place] Value [place] Unit Date/Time Recent/Initial? Code Code System Body Mass Index 43.88 kg/m2 03/22/2018 09:30 [facility] 09768-0 LOINC Systolic Blood Pressure 142 mm[Hg] 04/02/2018 11:17 Most Recent 8480-6 LOINC Diastolic Blood Pressure 60 mm[Hg] 04/02/2018 11:17 Most Recent 8462-4 LOINC Systolic Blood Pressure 128 mm[Hg] 03/22/2018 09:30 [facility] 8480-6 LOINC Diastolic Blood Pressure 61 mm[Hg] 03/22/2018 09:30 In[facility] 8462-4 LOINC Body Surface Area 3.02 m2 03/22/2018 09:30 [facility] 3140-1 LOINC Height 195.5800 cm 77.00 in 03/22/2018 09:30 [facility] 8302-2 INC O2 Saturation 93 % 04/02/2018 11:17 Most Recent 62488-4 INC O2 Saturation 95 % 03/22/2018 09:30 [facility] 56406-2 INC Pulse 94.0 /min 04/02/2018 11:17 Most Recent 8867-4 INC Pulse 80.0 /min 03/22/2018 09:30 [facility] 8867-4 LOINC Respiration 20 /min 04/02/2018 11:17 Most Recent 9279-1 LOINC Respiration 20 /min 03/22/2018 09:30 [facility] 9279-1 LOINC Temperature 37.1 Charline 98.8 F 04/02/2018 11:17 Most Recent 8310-5 LOINC Temperature 36.9 Charline 98.4 F 03/31/2018 16:25 [facility] 8310-5 LOINC Weight 167.8292 kg 370.00 lbs 03/22/2018 09:30 [facility] 43189-2 LOINC Assessment You had the following problems: PRIMARY OSTEOARTHRITIS OF LEFT KNEE POST OP PAIN STATUS POST KNEE REPLACEMENT Review of Systems General: Recent health has been good. Lymph nodes: No recent history of enlargement, inflammation or pain. Head: No history of vertigo or convulsive disorder. Eyes: No history of cataracts or glaucoma. Ears: No history of tinnitus, pain or discharge. Nose: No history of chronic nasal discharge or drainage. Mouth and teeth: No history of recurrent soreness in mouth or tongue. Throat: No history of recurrent hoarseness. Neck: No history of goiter, swelling or enlarged nodes. Respiration: No history of wheezing, dyspnea, TB or asthma. 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 Cardiovascular: Significant for a history of hypertension. No recent problems with chest pain or shortness of breath. Gastrointestinal: No recent change in appetite or weight. No dysphagia or abdominal pain. Genitourinary: No history of dysuria or frequency. Has had blood in his urine recently and is scheduled to see a urologist prior to surgery Endocrine: No history of goiter. He does have history of diabetes Hemapoietic: No history of bleeding disorders. Musculoskeletal: Has a history of degenerative disease in ____. Physical Examination ---VITALS--- b/p 128/61, resp 20, pulse 80, O2 sat 95% RA, wt 370, ht 6'7", BMI 41.68 ---PHYSICAL EXAM--- GENERAL: This is a well-developed, well-nourished 72-year-old male in no acute distress. Patient has normal mood and affect. HEENT: Head is normocephalic. Eyes, pupils are equal and reactive. Nose, mouth and throat, airways are patent. Mucosa is without erythema or exudates. NECK: Symmetrical and supple. Trachea is midline. Thyroid is smooth, not enlarged, without nodules. LYMPHATIC: No anterior/posterior cervical, occipital or supraclavicular lymphadenopathy. CHEST AND LUNGS: Thorax is symmetrical. Breath sounds are bilaterally clear to auscultation. CARDIOVASCULAR: Regular rate and rhythm without murmur, gallops or rubs appreciated. No clicks appreciated. No S3 or S4 is noted. ABDOMEN: Patient has a slight rounded abdomen. Inspection reveals symmetric abdomen without pulsation. Auscultation reveals normal bowel sounds in all four quadrants. Palpation reveals no guarding or organomegaly. MUSCULOSKELETAL: Patient has crepitus with range of motion in the right knee and has decreased range of motion as well. Distal pulses and sensation were intact. There is no excessive scoliosis, lordosis or kyphosis noted. There is woody edema in the LLE and trace of pedal edema in the RLE, there a sore mid tibia right leg that is healing. NEUROLOGIC: Patient's general behavior, level of consciousness, thought content and emotional status normal. Cranial nerves II- XII are grossly intact. Hospital Discharge Instructions Assessment Advance primary degenerative disease right knee Plan of Treatment Right total knee replacement Anticipate a 2-night hospital stay with dismissal to home. Treatment at the time of hospitalization to include medications for pain control, IV fluids, physical therapy, as well as treatment of her above mentioned currently medical problems. Assessment POD # 1 RTKR, acute anemia secondary to expected surgical and post surgical blood loss Plan of Treatment Continue current treatments Plan for dismissal tomorrow Assessment POD # 2 RTKR Plan of Treatment Continue current treatments Plan for dismissal later today Should you have any questions prior to discharge, please contact a member of your healthcare team. If you have left the hospital and have any questions, plea se contact your primary care physician. SCRIPTS WRITTEN BY DOCTOR GIVEN TO PATIENT? Docusate sodium, Xarelto,Outpatient therapy, Percocet. FOLLOW UP APPOINTMENT: Dr Gallo 04/13/18 at 11:30am FOLLOW-UP OUTPATIENT SERVICES: Physical therapy at [facility] 04/05/18 at 11am Reason For Referral No Data Found Hospital Course You were admitted to [facility] on 03/31/2018 12:47 with a principal diagnosis of Unilateral primary osteoarthritis, right knee You were discharged from [facility] on 04/02/2018 19:24 Medications Medication Start Date End Date Route Frequency Dose Code Code System metFORMIN HCl 500MG Oral Tablet, Extended Release 04/01/2018 Unknown ORAL TWO TIMES A DAY 500 MILLIGRAMS 977835 RxNorm ZyrTEC 10MG Oral Tablet 04/01/2018 Unknown ORAL DAILY 10 MILLIGRAMS 7050712 RxNorm Zoloft 100MG Oral Tablet 04/01/2018 Unknown ORAL DAILY 100 MILLIGRAMS 444152 RxNorm VITAMIN B-12 04/01/2018 Unknown ORAL DAILY 2500 MICROGRAM RxNorm Omeprazole 20MG Oral Tablet, Delayed Release 04/01/2018 Unknown ORAL DAILY 1 TABLET RxNorm Ocuvite Oral Tablet 04/01/2018 Unknown ORAL DAILY 1 unit(s) 733466 RxNorm NovoLOG 100U/1ML Subcutaneous Solution 04/01/2018 Unknown SUBCUTANEOUS THREE TIMES A DAY 40 UNITS 900658 RxNorm Meloxicam 7.5MG Oral Tablet 04/01/2018 Unknown ORAL DAILY 7.5 MILLIGRAMS 685584 RxNorm Losartan Potassium 100MG Oral Tablet 04/01/2018 Unknown ORAL DAILY 100 MILLIGRAMS 537525 RxNorm Lantus 100U/1ML Subcutaneous Solution 04/01/2018 Unknown SUBCUTANEOUS WITH BREAKFAST 40 UNITS 330315 RxNorm Lantus 100U/1ML Subcutaneous Solution 04/01/2018 Unknown SUBCUTANEOUS WITH SUPPER 80 UNITS 739765 RxNorm FISH OIL 04/01/2018 Unknown ORAL DAILY 1200 MILLIGRAMS RxNorm Actos 15MG Oral Tablet 04/01/2018 Unknown ORAL DAILY 15 MILLIGRAMS 720923 RxNorm Percocet 5MG-325MG Oral Tablet 04/01/2018 Unknown BY MOUTH NEEDED EVERY 6 HR 3419353 RxNorm Outpatient therapy 04/01/2018 Unknown TKR prototcol RxNorm Aspirin 81MG Oral Tablet, Chewable 04/01/2018 Unknown ORAL DAILY 81 MILLIGRAMS RxNorm Thera-M Enhanced 90MG-0.03MG-0.15MG-4 Oral Tablet 04/01/2018 Unknown BY MOUTH DAILY 1 TABLET 700716 RxNorm Xarelto 10MG Oral Tablet 04/01/2018 Unknown BY MOUTH DAILY 1 TABLET 9981411 RxNorm Docusate Sodium 100MG Oral Capsule, Liquid Filled 04/01/2018 Unknown BY MOUTH TWO TIMES A DAY 1 TABLET 8094045 RxNorm Procedures Procedure Name Date Status Code Code System Replacement of left knee joint completed 591711861 SNOMED CT DENTAL SURGERY PROCEDURE completed 42978 CPT-4 EXTENSIVE EAR/NECK SURGERY completed 50105446 SNOMED CT Hemorrhoidectomy completed 86479812 SNOM[address] CT Tonsillectomy completed 595596323 SNOMED CT Replacement of Right Knee Joint with Synthetic Substitute, Cemented, Open 03/31/2018 completed 9VCP5E2 ICD10 PCS Resection of colon completed 08353170 SNOMED CT COLOSTOMY completed 751264868 SNOMED CT LOW BACK DISK SURGERY completed 642000818 SNOMED CT Implants No Data Found Problems Problem Start Date Resolved Date Status Code Code System PRIMARY OSTEOARTHRITIS OF LEFT KNEE active 264321163 SNOMED-CT POST OP PAIN active 981523460 SNOMED-CT STATUS POST KNEE REPLACEMENT active 5921196354654 SNOMED-CT DM 03/23/2018 resolved 36670528 SNOMED-CT HTN 03/23/2018 resolved 25899276 SNOMED-CT GERD 03/23/2018 resolved 757529588 SNOMED-CT SEASONAL ALLERGY 03/23/2018 resolved 912214384 SNOMED-CT PULMONARY EMBOLISM 03/23/2018 resolved 23073933 SNOMED-CT RENAL FAILURE 03/23/2018 resolved 22849481 SNOMED-CT COPD 03/23/2018 resolved 70040000 SNOMED-CT ULCER 03/23/2018 resolved 890610769 SNOMED-CT Allergies Allergy Substance Reaction Severity Start Date Concern Status Code Code System SULFA (sulfonamide) Active RxNorm MORPHINE Active 7052 RxNorm Plan of Treatment No Data Found Encounters No Data Found Goals No Data Found Discharge Medications No Data Found Discharge Diagnosis Discharge Diagnosis Diagnosis Code Start Date Unilateral primary osteoarthritis, right knee M1711 03/31/2018 Health Concerns Section No Data Found
--- OUTSIDE RECORDS SUMMARY | 2018-11-26 09:39 | XMS REPORT ---
Author Author Nanda Herman [facility] Address [address] [place], [place] [id number] Care Team Providers Care Director Of Business Applications Name Role Phone Nanda Herman PCP Allergies [...] (15 mg) by oral route once daily losartan 100 mg oral tablet take 1 tablet (100 mg) by oral route once daily omeprazole [...] 1,000 mg (120 mg-180 mg) oral capsule Lvxqhkpt-Ccauj-LMX(with boron) 838-578-50-1 mg oral tablet Novolog U-100 Insulin aspart 100 unit/mL subcutaneous solution inject 40 units by subcutaneous route at each meal Lantus U-100 Insulin 100 unit/mL subcutaneous solution inject 40units in AM and 80 units at HS Problem List Description Status Onset Dyspnea on [...] Vis Given Vis Pub CVX Influenza 03/02/2018 [employer] SKB Flulaval quadrivalent 3PM59 Intramuscular Left Deltoid 03/02/2018 06/15/2017 158 History of Past Illness Name Date [...] Number Start Date Medicare RHC Medicare RHC [id number] N/A Aetna Aetna [id number] N/A Medicare Part B Medicare Of [place] [id number] N/A Medicare Part A Medicare - Lab/Xray [id number] N/A History of Encounters Visit Date Visit Type Provider 03/02/2018 Office visit Nanda Heramn MD 05/30/2015 [facility] Madelin Manzano MD 05/21/2015 [facility] Demarco Ford MD 11/13/2014 [facility] Demarco Ford MD
--- OUTSIDE RECORDS SUMMARY | 2018-11-26 09:39 | XMS REPORT ---
Author Author Nanda Herman [facility] Address [address] [place], [place] [id number] Care Team Providers Care Actuarial Intern Name Role Phone Nanda Herman PCP Allergies [...] 1,000 mg (120 mg-180 mg) oral capsule Ljtibvuh-Odvsu-ZER(with boron) [phone] mg oral tablet Novolog U-100 Insulin aspart [...] Vis Given Vis Pub CVX Influenza 03/02/2018 [employer] SK[employer] Flulaval quadrivalent 3PM59 Intramuscular Left Deltoid [...] Number Start Date Medicare RHC Medicare RHC [id number] N/A Aetna Aetna [id number] N/A Medicare Part B Medicare Of [place] [id number] N/A Medicare Part A Medicare - Lab/Xray [id number] N/A History of Encounters Visit Date Visit Type Provider 03/02/2018 Office visit Nanda Herman MD 05/30/2015 [facility] Madelin Manzano MD 05/21/2015 [facility] Demarco Ford MD 11/13/2014 [facility] Demarco Ford MD
--- OUTSIDE RECORDS SUMMARY | 2018-11-26 09:39 | XMS REPORT ---
Author Author Nanda Herman [facility] Address [address] [place], [place] [id number] Care Team Providers Care Arm Rest Builder Name Role Phone Nanda Herman PCP Allergies [...] 1,000 mg (120 mg-180 mg) oral capsule Hpkndojy-Kmdpz-IRS(with boron) [phone] mg oral tablet Novolog U-100 Insulin aspart [...] smoker Alcohol Former retired History of Procedures Not available. Results Summary Not available. History Of Immunizations Not available. History of Past Illness Name Date of [...] 9:44AM Renal mass Mar 02 2018 9:44AM Payers Insurance Name Company Name Plan Name Plan Number Policy Number Policy Group Number Start Date Medicare [facility] Medicare C [id number] N/A Aetna Aetna [id number] N/A Medicare Part B Medicare Of [place] [id number] N/A Medicare Part A Medicare - Lab/Xray [id number] N/A History of Encounters Visit Date Visit Type Provider 03/02/2018 Office visit Nanda Herman MD 05/30/2015 [facility] Madelin Manzano MD 05/21/2015 [facility] Demarco Ford MD 11/13/2014 [facility] Demarco Ford MD
--- OUTSIDE RECORDS SUMMARY | 2018-11-26 09:39 | XMS REPORT | Continuity of Care Document ---
Author Organization Unknown Address Unknown Allergies Active Description Code Type Severity Reaction Onset Reported/Identified Relationship to Patient Clinical Status Yes MORPHINE SEVERE OTHER Yes SULFA (SULFONAMIDE ANTIBIOTICS) SEVERE OTHER Medications Medication Packaging Start Date Stop Date Route Dosage Sig FENTANYL INJ 100 MCG/2CC VIAL MCG 10/14/2018 10/14/2018 ONCE&2159 NORMAL SALINE 1000CC IV BAG INJ 0.9 % (NS 1000CC IV BAG) ml 10/14/2018 10/29/2018 CONTINUOUSEVERY 0 Hour Meropenem-0.9% sodium chloride IV piggyback 1 Gm GM 10/14/2018 10/14/2018 ONCE&2251 ONDANSETRON VIAL INJ 4 MG/2CC (ZOFRAN 2CC VIAL) MG 10/14/2018 10/14/2018 PRN ONCE NORMAL SALINE 1000CC IV BAG INJ 0.9 % (NS 1000CC IV BAG) ml 10/14/2018 10/29/2018 CONTINUOUSEVERY 0 Hour ONDANSETRON VIAL INJ 4 MG/2CC (ZOFRAN 2CC VIAL) MG 10/14/2018 10/17/2018 PRN Q6H FENTANYL INJ 100 MCG/2CC VIAL MCG 10/14/2018 10/17/2018 PRN Q3H Meropenem-0.9% sodium chloride IV piggyback 1 Gm GM 10/15/2018 10/24/2018 Q8H&0600,1400,2200 INSULIN ASPART PEN INJ 100 UNITS/CC (NOVOLOG FLEXPEN) 10/15/2018 11/13/2018 ACHS&0630,1130,1630,2100 LACTOBACILLUS BULGARIS TAB (LACTINEX BULGARIS) tab 10/15/2018 10/24/2018 QID&0800,1200,1700,2200 METFORMIN XR TAB 500 MG (GLUCOPHAGE XR) MG 10/15/2018 11/13/2018 BID&0800,2000 NORMAL SALINE 250CC IV BAG INJ 0.9 % (NS 250CC IV BAG) ml 10/15/2018 10/19/2018 Q12H&0800,2000 MELOXICAM TAB 7.5 MG (MOBIC) MG 10/15/2018 11/14/2018 PRN Daily SERTRALINE TAB 50 MG (ZOLOFT) MG 10/15/2018 11/13/2018 Daily&0900 ASPIRIN 81MG CHEWABLE TAB 81 MG (BABY ASPIRIN) MG 10/15/2018 11/13/2018 Daily&0900 ENOXAPARIN SYRINGE INJ 40 MG (LOVENOX SYRINGE) MG 10/15/2018 10/24/2018 Daily&0900 CETIRIZINE TAB 10 MG (ZYRTEC) MG 10/15/2018 11/13/2018 Daily&0900 PIOGLITAZONE TAB 15 MG (ACTOS) MG 10/15/2018 11/13/2018 Daily&0900 LOSARTAN TAB 100 MG (COZAAR) MG 10/15/2018 11/13/2018 Daily&0900 INSULIN DETEMIR PEN INJ 100 UNITS/CC (LEVEMIR FLEXPEN) UNITS 10/15/2018 11/13/2018 Daily&0900 Meropenem-0.9% sodium chloride IV piggyback 1 Gm GM 10/15/2018 10/25/2018 Q12H&0600,1800 LOPERAMIDE CAP 2 MG (IMMODIUM) MG 10/15/2018 10/22/2018 PRN Daily CHOLESTYRAMINE PKT 4 GM (QUESTRAN ANJANA) GM 10/15/2018 10/29/2018 TID&0800,1400,2000 MELOXICAM TAB 7.5 MG (MOBIC) MG 10/15/2018 11/14/2018 BID&0800,2000 INSULIN DETEMIR PEN INJ 100 UNITS/CC (LEVEMIR FLEXPEN) UNITS 10/15/2018 11/13/2018 QHS&2100 SILVER SULFADIAZINE CRM CRM 1 % (SSD CRM) gennaro 10/16/2018 10/22/2018 Daily&0900 SILVER SULFADIAZINE CRM CRM 1 % (SSD CRM) gennaro 10/16/2018 10/22/2018 Daily&0900 INSULIN DETEMIR PEN INJ 100 UNITS/CC (LEVEMIR FLEXPEN) UNITS 10/16/2018 11/14/2018 QHS&2100 INSULIN DETEMIR PEN INJ 100 UNITS/CC (LEVEMIR FLEXPEN) UNITS 10/17/2018 11/15/2018 Daily&0900 AMOX-CLAV 875/125 TAB 875 MG-125MG (AUGMENTIN) TAB 10/17/2018 10/27/2018 BID&0800,2000 ACETAMINOPHEN ORAL TABLET 325mg(Tylenol) MG 10/18/2018 11/17/2018 PRN EVERY 4 Hour Problems Date Dx Coded Attending Type Code Diagnosis Diagnosed By 04/29/2018 DANNIELLE ELLIS 250.00 DIABETES MELLITUS WITHOUT MENTION OF COMPLICATION, TYPE II OR UNSPECIFIED TYPE, NOT STATED UNCONTROLLED 04/29/2018 DANNIELLE ELLIS 491.20 OBSTRUCTIVE CHRONIC BRONCHITIS, WITHOUT EXACERBATION 04/29/2018 DANNIELLE ELLIS 719.7 DIFFICULTY IN WALKING 04/29/2018 DANNIELLE ELLIS 780.79 OTHER MALAISE AND FATIGUE 04/29/2018 DANNIELLE ELLIS E11.9 TYPE 2 DIABETES MELLITUS WITHOUT COMPLICATIONS 04/29/2018 DANNIELLE ELLIS J44.9 CHRONIC OBSTRUCTIVE PULMONARY DISEASE, UNSPECIFIED 04/29/2018 DANNIELLE ELLIS R26.2 DIFFICULTY IN WALKING, NOT ELSEWHERE CLASSIFIED 04/29/2018 DANNIELLE ELLIS R53.1 WEAKNESS 04/29/2018 DANNIELLE ELLIS V43.65 KNEE JOINT REPLACED BY OTHER MEANS 04/29/2018 DANNIELLE ELLIS V54.81 04/29/2018 DANNIELLE ELLIS Z47.1 AFTERCARE FOLLOWING JOINT REPLACEMENT SURGERY 04/29/2018 DANNIELLE ELLIS Z96.653 PRESENCE OF ARTIFICIAL KNEE JOINT, BILATERAL 05/05/2018 W V43.65 KNEE JOINT REPLACED BY OTHER MEANS 05/05/2018 W V54.81 AFTERCARE FOLLOWING JOINT REPLACEMENT 05/05/2018 W Z47.1 AFTERCARE FOLLOWING JOINT REPLACEMENT SURGERY 05/05/2018 W Z96.651 PRESENCE OF RIGHT ARTIFICIAL KNEE JOINT 06/11/2018 W V43.65 KNEE JOINT REPLACED BY OTHER MEANS 06/11/2018 W V54.81 AFTERCARE FOLLOWING JOINT REPLACEMENT 06/11/2018 W Z47.1 AFTERCARE FOLLOWING JOINT REPLACEMENT SURGERY 06/11/2018 W Z96.651 PRESENCE OF RIGHT ARTIFICIAL KNEE JOINT 07/02/2018 W V43.65 KNEE JOINT REPLACED BY OTHER MEANS 07/02/2018 W V54.81 AFTERCARE FOLLOWING JOINT REPLACEMENT 07/02/2018 W Z47.1 AFTERCARE FOLLOWING JOINT REPLACEMENT SURGERY 07/02/2018 W Z96.651 PRESENCE OF RIGHT ARTIFICIAL KNEE JOINT 10/14/2018 Raven Da Silva W 599.0 URINARY TRACT INFECTION, SITE NOT SPECIFIED 10/14/2018 Raven Da Silva N39.0 URINARY TRACT INFECTION, SITE NOT SPECIFIED 10/15/2018 Raven Da Silva W 599.0 URINARY TRACT INFECTION, SITE NOT SPECIFIED 10/15/2018 Raven Da Silva N39.0 URINARY TRACT INFECTION, SITE NOT SPECIFIED 10/15/2018 Raven Da Silva W 599.0 URINARY TRACT INFECTION, SITE NOT SPECIFIED 10/15/2018 Raven Da Silva N39.0 URINARY TRACT INFECTION, SITE NOT SPECIFIED Procedures There is no data. Results Test Result Range Thyroid Stimulating Hormone - 06/14/18 09:16 TSH 2.31 mIU/mL 0.32-5.00 Thyroid Stimulating Hormone - 09/20/18 10:09 TSH 1.32 mIU/mL 0.32-5.00 Comprehensive Metabolic Panel - 10/14/18 21:40 Albumin 3.8 g/dL 3.6-5.1 ALP 138 U/L 35-130 ALT 23 U/L 6-45 Anion Gap 17 6-14 AST 35 U/L 2-40 BUN 28 mg/dL 5-25 Calcium 9.7 mg/dL 8.3-10.4 Chloride 106 mmol/L 95-114 CO2 20 mEq/L 22-33 Creat 1.14 mg/dL 0.50-1.50 eGFR 63 mL/min/1.73m2 >59 Globulin 2.8 g/dL 2.3-3.5 Glucose 205 mg/dL 70-110 Osmo 296 280-295 Potassium 4.5 mmol/L 3.5-5.3 Sodium 138 mmol/L 134-148 TBil 3.5 mg/dL 0.2-1.2 TP 6.6 g/dL 6.0-8.3 Blood Culture - 10/14/18 21:40 PRELIM CULTURE RESULTS Blood Culture Negative, No Growth Day 1 FINAL CULTURE RESULTS Blood Culture Negative, No Growth Day 5 MEDIA PLATED Setup at 21:56 on 10/14/[id number] Culture Media Position C48 CULTURE SOURCE drawn @ Right AC Blood Culture - 10/14/18 21:40 PRELIM CULTURE RESULTS Blood Culture Negative, No Growth Day 1 MEDIA PLATED Setup at 21:56 on 10/14/[id number] Culture Media Position C48 CULTURE SOURCE drawn @ Right AC Urinalysis - 10/14/18 21:45 Icotest Positive Negative Urine Crystals Amorphous material: Moderate/HPF Urine Volume Urine Volume Sufficient (10mL) Urine-Appearance Cloudy Clear Urine-Bacteria 3+ Urine-Bilirubin 2+ Negative Urine-Blood Trace-intact Negative Urine-Color Shakila Colorless-Lt. Yellow Urine-Epithelial Cells 0-5/HPF Urine-Glucose Negative Negative Urine-Ketones Trace Negative Urine-Leukocytes 1+ Negative Urine-Nitrite Positive Negative Urine-Other Culture to follow Urine-pH 5.5 5-8.5 Urine-Protein Negative Negative Urine-RBC 0-2/HPF Urine-Specific [place] 1.015 1.000-1.030 Urine-WBC TNTC Urobilinogen 2.0 0.2-1.0 Urine Culture - 10/14/18 21:45 PRELIM CULTURE RESULTS >100,000 Gram Negative MARIANNE / ID to Follow MEDIA PLATED Setup at 22:11 on 10/14/2018 CULTURE SOURCE voided urine Sensi - 10/14/18 21:45 FINAL CULTURE RESULTS Escherichia coli (Isolate 1) Ampicillin/Sulbactam 16/8 Ampicillin >16 Amoxicillin/K Clavulanate <=8/4 Ceftriaxone <=8 Ciprofloxacin >2 Nitrofurantoin 64 Gentamicin <=4 Levofloxacin >4 Trimethoprim/ Sulfamethoxazole <=2/38 Tetracycline <=4 Amikacin <=16 Aztreonam <=8 Ceftazidime <=1 Ceftazidime/K Clavulanate <=0.25 Cephalothin 16 Cefotaxime <=2 Cefotaxime/K Clavulanate <=0.5 Cefoxitin <=8 Cefazolin <=8 Cefepime <=8 Cefuroxime <=4 Ertapenem <=1 Imipenem <=4 Meropenem <=4 Piperacillin/Tazobactam <=16 Piperacillin >64 Tigecycline <=2 Tobramycin <=4 Blood Culture - 10/14/18 21:45 PRELIM CULTURE RESULTS Blood Culture Negative, No Growth Day 1 FINAL CULTURE RESULTS Blood Culture Negative, No Growth Day 5 MEDIA PLATED Setup at 22:12 on 10/14/[id number] Culture Media Position C44 CULTURE SOURCE drawn @ Left AC Blood Culture - 10/14/18 21:45 PRELIM CULTURE RESULTS Blood Culture Negative, No Growth Day 1 MEDIA PLATED Setup at 22:12 on 10/14/[id number] Culture Media Position C44 CULTURE SOURCE drawn @ Left Urine Culture - 10/14/18 21:45 PRELIM CULTURE RESULTS >100,000 Gram Negative MARIANNE / ID to Follow MEDIA PLATED Setup at 22:11 on 10/14/2018 CULTURE SOURCE voided urine Comprehensive Metabolic Panel - 10/15/18 04:45 Albumin 3.3 g/dL 3.6-5.1 ALP 119 U/L 35-130 ALT 20 U/L 6-45 Anion Gap 11 6-14 AST 25 U/L 2-40 BUN 26 mg/dL 5-25 Calcium 8.9 mg/dL 8.3-10.4 Chloride 108 mmol/L 95-114 CO2 23 mEq/L 22-33 Creat 1.01 mg/dL 0.50-1.50 eGFR 73 mL/min/1.73m2 >59 Globulin 2.1 g/dL 2.3-3.5 Glucose 229 mg/dL 70-110 Osmo 296 280-295 Potassium 4.2 mmol/L 3.5-5.3 Sodium 138 mmol/L 134-148 TBil 2.5 mg/dL 0.2-1.2 TP 5.4 g/dL 6.0-8.3 Vancomycin Trough - 10/16/18 06:14 Vanco Trough 9.8 ug/mL 10.0-20.0 Comprehensive Metabolic Panel - 10/16/18 06:14 Albumin 3.3 g/dL 3.6-5.1 ALP 102 U/L 35-130 ALT 14 U/L 6-45 Anion Gap 12 6-14 AST 19 U/L 2-40 BUN 14 mg/dL 5-25 Calcium 8.6 mg/dL 8.3-10.4 Chloride 109 mmol/L 95-114 CO2 23 mEq/L 22-33 Creat 0.77 mg/dL 0.50-1.50 eGFR 99 mL/min/1.73m2 >59 Globulin 2.0 g/dL 2.3-3.5 Glucose 84 mg/dL 70-110 Osmo 289 280-295 Potassium 3.8 mmol/L 3.5-5.3 Sodium 140 mmol/L 134-148 TBil 1.3 mg/dL 0.2-1.2 TP 5.3 g/dL 6.0-8.3 Vancomycin Trough - 10/17/18 06:00 Vanco Trough 13.0 ug/mL 10.0-20.0 Comprehensive Metabolic Panel - 10/18/18 05:19 Albumin 3.4 g/dL 3.6-5.1 ALP 112 U/L 35-130 ALT 13 U/L 6-45 Anion Gap 12 6-14 AST 18 U/L 2-40 BUN 10 mg/dL 5-25 Calcium 8.4 mg/dL 8.3-10.4 Chloride 107 mmol/L 95-114 CO2 24 mEq/L 22-33 Creat 0.75 mg/dL 0.50-1.50 eGFR 102 mL/min/1.73m2 >59 Globulin 2.0 g/dL 2.3-3.5 Glucose 121 mg/dL 70-110 Osmo 287 280-295 Potassium 4.0 mmol/L 3.5-5.3 Sodium 139 mmol/L 134-148 TBil 1.3 mg/dL 0.2-1.2 TP 5.4 g/dL 6.0-8.3 Encounters ACCT No. Visit Date/Time Discharge Status Pt. Type Provider Facility Loc./Unit Complaint [id number] 10/15/2018 06:42:00 10/18/2018 12:50:00 DIS Inpatient Raven Da Silva [facility] MED-SURG [id number] 09/20/2018 09:41:00 09/20/2018 23:59:00 DIS Outpatient Raven Da Silva [id number] 06/14/2018 09:11:00 06/14/2018 23:59:00 DIS Outpatient Raven Da Silva [id number] 04/06/2018 13:54:00 04/29/2018 07:17:00 DIS Outpatient DANNIELLE ELLIS [id number] 10/14/2018 22:00:01 Document Registration [id number] 05/05/2018 08:42:00 Document Registration [id number] 04/20/2018 16:30:10 04/20/2018 23:59:59 CLS Outpatient Demarco Ford [id number] 04/08/2018 15:12:57 04/08/2018 23:59:59 CLS Outpatient Wan Beyer [id number] 03/02/2018 10:11:23 03/02/2018 23:59:59 CLS Outpatient Nanda Herman [id number] 07/15/2015 12:54:32 07/15/2015 23:59:59 CLS Outpatient Demarco Ford [id number] 06/11/2015 16:45:49 06/11/2015 23:59:59 CLS Outpatient Hedy Sanchez [id number] 02/11/2015 15:59:10 02/11/2015 23:59:59 CLS Outpatient Demarco Ford [id number] 10/14/2018 21:02:00 Document Registration
--- NOTE | 2018-11-26 09:49 | Pulmonary Consultation ---
History of Present Illness History of Present Illness Date of Consultation 11/26/18 09:47 Time Seen by Provider: 08:27 Date of Admission History of Present Illness 73yo with hx of COPD, JULIAN, DM presented from Dr. Da Silva's office secondary to worsening SOB, fever, chills after failing out pt treatment. He was started on Abx on Thursday however continued to worsen. Cough is productive of yellow sputum and he states it is difficult to cough up. Pt was directly admitted to 4th floor with IVF and Abx. I am consulted for pulmonary management. Allergies and Home Medications Allergies Coded Allergies: No Known Drug Allergies (Unverified , 11/26/18) Home Medications Albuterol Sulfate 1 Puff Puff, 2 PUFF INH Q4H PRN for SHORTNESS OF BREATH, (Reported) Aspirin 81 Mg Tablet.dr, 81 MG PO DAILY, (Reported) C,E,Zinc,Copper 11/Qauiq2t/Lut 1 Each Capsule, 1 CAP PO DAILY, (Reported) Cetirizine HCl 10 Mg Tablet, 10 MG PO DAILY, (Reported) Clarithromycin 500 Mg Tablet, 500 MG PO BID, (Reported) 7 DAY SUPPLY FILLED 11-23-18 Cyanocobalamin (Vitamin B-12) 2,000 Mcg Tablet, 2,000 MCG PO DAILY, (Reported) Finasteride 5 Mg Tablet, 5 MG PO DAILY, (Reported) Glycopyrrolate/Formoterol Fum 10.7 Gm Hfa.aer.ad, 2 PUFF INH BID, (Reported) Guaifenesin/Codeine Phosphate 118 Ml Liquid, 5 ML PO Q4H PRN for COUGH, (Reported) Insulin Glargine,Hum.rec.anlog 100 Unit/1 Ml Vial, 80 UNITS SC HS, (Reported) Insulin Glargine,Hum.rec.anlog 100 Unit/1 Ml Vial, 40 UNIT SQ DAILY, (Reported) Insulin Lispro 100 Unit/1 Ml Vial, 30 UNITS SC TIDAC, (Reported) Losartan Potassium 100 Mg Tablet, 100 MG PO DAILY, (Reported) Meloxicam 7.5 Mg Tablet, 7.5 MG PO DAILY, (Reported) Metformin HCl 500 Mg Tablet, 500 MG PO DAILY, (Reported) Nitrofurantoin Macrocrystal 100 Mg Capsule, 100 MG PO DAILY, (Reported) FILLED #60 09-24-18 Bard 3 Polyunsat Fatty Acids 1,000 Mg Cap, 1,000 MG PO DAILY, (Reported) Omeprazole 20 Mg Capsule.dr, 20 MG PO DAILY, (Reported) Pioglitazone HCl 15 Mg Tablet, 15 MG PO DAILY, (Reported) Sertraline HCl 100 Mg Tablet, 100 MG PO DAILY, (Reported) Tamsulosin HCl 0.4 Mg Cap, 0.4 MG PO DAILY, (Reported) Review of Systems Time Seen by Provider: 08:25 Constitutional: Fever, Chills, Sweats, Weakness, Malaise, Other Eyes: No: Pain, Vision change, Conjunctivae inflammation, Eyelid inflammation, Other, Redness ENT: Nose congestion; No: Ear pain, Ear discharge, Nose pain, Nose discharge, Mouth pain, Mouth swelling, Throat pain, Throat swelling, Other Respiratory: Cough, Shortness of breath, SOB with excertion, Wheezing, Sputum; No: Hemoptysis, Pleuritic Pain Cardiovascular: Palpitations, Paroxysmal Noc. Dyspnea Gastrointestinal: Constipation; No: Nausea, Vomiting, Abdominal Pain, Diarrhea, Melena, Hematochezia, Other Genitourinary: Dysuria, Frequency; No Incontinence, No Hematuria, No Retention, No Other Musculoskeletal: back pain Neurological: Weakness Sepsis Event Evaluation Height, Weight, BMI Height: '" Weight: lbs. oz. kg; BMI Method: Exam Exam Height & Weight Height: '" Weight: lbs. oz. kg; BMI Method: General Appearance: No Apparent Distress, WD/WN, Anxious, Obese HEENT: PERRL/EOMI, Normal ENT Inspection, Pharynx Normal Neck: Normal Inspection, Non Tender, Supple Respiratory: Chest Non Tender, No Accessory Muscle Use, No Respiratory Distress, Decreased Breath Sounds Cardiovascular: Regular Rate, Rhythm, No Edema, No Gallop Capillary Refill: Less Than 3 Seconds Gastrointestinal: normal bowel sounds, non tender, soft, no organomegaly, no pulsatile mass Extremity: Normal Capillary Refill, Normal Inspection, No Pedal Edema Neurologic/Psychiatric: Alert, Oriented x3 Skin: Normal Color, Warm/Dry Lymphatic: No Adenopathy Assessment/Plan Assessment/Plan Persistent SOB and cough with atelectasis -IVF -IS -SVNs -IS metabolic lactic acidosis -IVF- increase to 150 secondary to LA - Rocephin -Diaz cultures pending COPD hx -Labs and CXR are pending -SVNS JULIAN -CPAP IDDM MICHELLE AMADO DO Nov 26, 2018 09:48
[2018-11-26 09:54] VITALS: BP 125/70
[2018-11-26] MEDS: HYDROCODONE/CHLOR 10MG/5 ML (TUSSIONEX SUSP) 5ML UDC PO SCH ×2 (10:18→19:57)
[2018-11-26] MEDS: NS IV 1000 ML 1,000 ML IV SCH ×2 (10:18→19:32)
[2018-11-26] MEDS ORDERED: CLAR-19 PO (10:25)
[2018-11-26] MEDS ORDERED: FINA5TAB6 PO (10:25)
[2018-11-26] MEDS ORDERED: TAMS0.4C98 PO (10:25)
[2018-11-26] MEDS ORDERED: INSU100V6 SC (10:25)
[2018-11-26] MEDS ORDERED: INSU100V6 SQ (10:28)
[2018-11-26] MEDS ORDERED: INSU100V SC (10:28)
[2018-11-26] MEDS ORDERED: GUAI-813 PO (10:28)
[2018-11-26] MEDS ORDERED: GLYC10.7 INH (10:28)
[2018-11-26] MEDS ORDERED: CYAN200014 PO (10:39)
[2018-11-26] MEDS ORDERED: PIOG15TA67 PO (10:39)
[2018-11-26] MEDS ORDERED: OMEP20CA12 PO (10:39)
[2018-11-26] MEDS ORDERED: CETI10TA17 PO (10:39)
[2018-11-26] MEDS ORDERED: C,E,1CAP PO (10:39)
[2018-11-26] MEDS ORDERED: MELO7.5T46 PO (10:39)
[2018-11-26] MEDS ORDERED: ASPI-983 PO (10:39)
[2018-11-26] MEDS ORDERED: SERT100T8 PO (10:39)
[2018-11-26] MEDS ORDERED: METF-397 PO (10:39)
[2018-11-26] MEDS ORDERED: NITR100C PO (10:39)
[2018-11-26] MEDS ORDERED: LOSA100T57 PO (10:39)
[2018-11-26] MEDS ORDERED: OMG1KC PO (10:39)
[2018-11-26] MEDS ORDERED: RT-ALBUINH INH (10:43)
--- NOTE | 2018-11-26 10:50 | History & Physical-Hospitalist ---
History of Present Illness HPI/Chief Complaint Chief complaint: Fever with chills History of present illness: This is a 73-year-old white male clinic patient of [facility] with a past medical history of COPD, JULIAN, DM, HTN and recurrent UTI who presented as a direct admission for fever and chills after failing oral antibiotics given in my clinic on Thursday. He reports the cough is productive of yellow sputum. I have consulted cardiology and pulmonology in order to ev aluate this acute illness and to establish care. Patient recently moved from [facility]. Overall he denies any chest pain he does report some exertional dyspnea. Chest x-ray pending. UA pending. I did mention that he was admitted to urology who follows him on a regular basis. I will place him on IV fluids for supportive care and complete sepsis workup. Source: patient Exam Limitations: no limitations Date Seen 11/26/18 Time Seen by a Provider: 09:30 Attending Physician Raven Da Silva DO PCP No,Local Physician Referring Physician Date of Admission Nov 26, 2018 at 09:34 Home Medications & Allergies Home Medications Reviewed patient Home Medication Reconciliation performed by pharmacy medication reconciliations oil heat technician and/or nursing. Patients Allergies have been reviewed. Allergies Allergies Coded Allergies No Known Drug Allergies (Unverified11/26/18) Past Jzezwtu-Opzvhq-Jjllkd Hx Past Med/Social Hx: Reviewed Nursing Past Med/Soc Hx, Reviewed and Corrections made Patient Social History Marrital Status: Employed/Student: retired ([employer]) Smoking Status: Former Smoker Recent Foreign Travel: No Contact w/other who traveled: No Recent Infectious Disease Expo: No Past Medical History Surgeries: Orthopedic Respiratory: COPD, Sleep Apnea Currently Using CPAP: Yes Cardiac: High Cholesterol, Hypertension Genitourinary: Benign Prostatic Hyperpl, Kidney Infection, Prostate Problems, Bladder Infection, Renal Failure Gastrointestinal: Gastroesophageal Reflux Musculoskeletal: Arthritis, Chronic Back Pain Endocrine: Diabetes, Insulin dep Psychosocial: Sleep Difficulties Review of Systems Constitutional: see HPI, chills, dizziness, fever, malaise, weakness EENTM: no symptoms reported Respiratory: cough, short of breath, wheezing Cardiovascular: no symptoms reported Gastrointestinal: nausea, vomiting Genitourinary: no symptoms reported Musculoskeletal: back pain Skin: no symptoms reported Psychiatric/Neurological: No Symptoms Reported All Other Systems Reviewed Negative Unless Noted: Yes Physical Exam Physical Exam Vital Signs Vital Signs - First Documented 11/26/18 09:54 Temp 98.2 Pulse 96 Resp 22 B/P (MAP) 125/70 Pulse Ox 95 O2 Delivery Room Air O2 Flow Rate 0.00 Capillary Refill : Height, Weight, BMI Height: 6'7.00" Weight: 355lbs. 0.0oz. 161.179043hi; 40.0 BMI Method: General Appearance: WD/WN, Anxious, Chronically ill, Obese Eyes: Right Eye Normal Inspection, Right Eye PERRL HEENT: PERRL/EOMI, Normal ENT Inspection, Pharynx Normal, Moist Mucous Membranes Neck: Full Range of Motion, Normal Inspection, Non Tender Respiratory: Chest Non Tender, No Accessory Muscle Use, No Respiratory Distress, Decreased Breath Sounds, Wheezing Cardiovascular: Regular Rate, Rhythm, No Edema, No Gallop, No JVD, No Murmur, Normal Peripheral Pulses Gastrointestinal: Normal Bowel Sounds, No Organomegaly, No Pulsatile Mass, Non Tender, Soft Back: Normal Inspection, No CVA Tenderness, No Vertebral Tenderness Extremity: Normal Capillary Refill, Normal Inspection, Normal Range of Motion, Non Tender, No Calf Tenderness, No Pedal Edema Neurologic/Psychiatric: Alert, Oriented x3, No Motor/Sensory Deficits, Normal Mood/Affect Skin: Normal Color, Warm/Dry Lymphatic: No Adenopathy Results Results/Procedures Labs Laboratory Tests 11/26/18 10:37 Patient resulted labs reviewed. Assessment/Plan Admission Diagnosis Assessment: Sepsis Elevated lactic acid placed on IV fluids Failed outpatient antibiotic treatment for bronchitis Diabetes mellitus insulin-dependent Hypertension Hyperlipidemia Chronic back pain Recurrent UTI Hyponatremia acute Plan: Gentle IV fluid Consult cardiology and pulmonology and urology Monitor labs Check chest x-ray Admission Status: Observation Diagnosis/Problems Diagnosis/Problems (1) Sepsis Status: Acute Qualifiers: Sepsis type: sepsis due to unspecified organism Qualified Codes: A41.9 - Sepsis, unspecified organism (2) COPD with exacerbation Status: Acute (3) JULIAN on CPAP Status: Chronic (4) Diabetes mellitus, insulin dependent (IDDM), controlled Status: Chronic (5) Hypertension Status: Chronic Qualifiers: Hypertension type: essential hypertension Qualified Codes: I10 - Essential (primary) hypertension (6) Hyperlipidemia Status: Chronic Qualifiers: Hyperlipidemia type: mixed hyperlipidemia Qualified Codes: E78.2 - Mixed hyperlipidemia (7) GERD (gastroesophageal reflux disease) Status: Chronic Qualifiers: Esophagitis presence: without esophagitis Qualified Codes: K21.9 - Gastro- esophageal reflux disease without esophagitis (8) Hyponatremia Status: Acute (9) Vitamin B 12 deficiency Status: Chronic (10) Osteoarthritis Status: Chronic Qualifiers: Osteoarthritis location: unspecified site Osteoarthritis type: unspecified Qualified Codes: M19.90 - Unspecified osteoarthritis, unspecified site (11) Fever Status: Acute Qualifiers: Fever type: unspecified Qualified Codes: R50.9 - Fever, unspecified RAVEN DA SILVA DO Nov 26, 2018 10:50
[2018-11-26 10:57] LABS: BASOPHILS % (AUTO) 0 % (0-10); EOSINOPHILS % (AUTO) 0 % (0-10); HEMATOCRIT 37 % (40-54); HEMOGLOBIN 11.8 G/DL (13.3-17.7); LYMPHOCYTES # (AUTO) 0.9 X 10^3 (1.0-4.0); LYMPHOCYTES % (AUTO) 9 % (12-44); MEAN CORPUSCULAR HEMOGLOBIN 30 PG (25-34); MEAN CORPUSCULAR HGB CONC 32 G/DL (32-36); MEAN CORPUSCULAR VOLUME 94 FL (80-99); MEAN PLATELET VOLUME 10.1 FL (7.4-10.4); MONOCYTES # (AUTO) 0.7 X 10^3 (0.0-1.0); MONOCYTES % (AUTO) 7 % (0-12); NEUTROPHILS # (AUTO) 8.2 X 10^3 (1.8-7.8); NEUTROPHILS % (AUTO) 83 % (42-75); PLATELET COUNT 155 10^3/uL (130-400); WHITE BLOOD COUNT 9.9 10^3/uL (4.3-11.0)
--- NOTE | 2018-11-26 11:05 | NUR ---
SPOKE WITH THE PATIENT ABOUT HIS MEDICATIONS. HE HAD HIS BOTTLES WITH HIM AND I COMPARED WITH THE EXT MED HX. IN ADDITION TO WHAT IS SHOWN ON THE EXT MED HX HE HAS BOTTLES FROM [employer] FOR: 11-23-18 VIRTUSSIN AC 100/10/5 5ML Q4H PRN 09-25-18 FISH OIL 1000MG DAILY #100 06-17-18 ASPIRIN 81MG DAILY #125 HIS METFORMIN 500MG WAS FILLED #180 FOR A 90 DAY SUPPY 09-25-18 HOWEVER HE STATES HE ONLY TAKES 1 TAB ONCE DAILY IN THE MORNING. HIS NITROFURANTOIN 100MG WAS FILLED #60 FOR A 30 DAY SUPPLY 09-24-18 AND HE STATES HE IS TO TAKE IT UNTIL IT IS GONE HOWEVER HE IS ONLY TAKING 1 ONCE DAILY IN THE MORNING. HE TAKES THE FOLLOWING OTC: VITAMIN B 12 2000 MCG DAILY (ALSO HAS 1000MCG BOTTLE BUT ONLY TAKES 2000 TOTAL DAILY) ZYRTEC 10MG DAILY OCUVITE 50+ DAILY
[2018-11-26 11:15] LABS: ALANINE AMINOTRANSFERASE 13 U/L (0-55); ALBUMIN 3.9 GM/DL (3.2-4.5); ALKALINE PHOSPHATASE 116 U/L (40-136); BILIRUBIN,TOTAL 2.3 MG/DL (0.1-1.0); BUN/CREATININE RATIO 18; CALCIUM 9.2 MG/DL (8.5-10.1); CARBON DIOXIDE 26 MMOL/L (21-32); CHLORIDE 99 MMOL/L (98-107); CREATININE SERUM 0.94 MG/DL (0.60-1.30); GFR ESTIMATED > 60; GLUCOSE 364 MG/DL (70-105); SODIUM 133 MMOL/L (135-145); TOTAL PROTEIN 6.8 GM/DL (6.4-8.2)
--- NOTE | 2018-11-26 11:58 | NUR ---
ISELA YEE admitted to room 404-1, with an admitting diagnosis of fever, on 11/26/18 from via home, accompanied by . ISELA YEE introduced to surroundings, call light, bed controls, phone, TV, temperature control, lights, meal times, smoking policy, visitor policy, side rail policy, bathrooms and showers. Patient Rights given to patient in the handbook. ISELA YEE verbalizes understanding that [facility] is not responsible for the loss or damage to any personal effects or valuables that are kept in the patients possession during their hospitalization. The following Patient Care Plans were discussed with the patient: Discharge Planning, medications, pain management, and dehydration. ISELA YEE verbalizes understanding of Interdisciplinary Patient Education. Patient and/or family were informed about the Rapid Response Team and its purpose.
[2018-11-26 12:15] LABS: CLARITY,URINE SLIGHTLY CLOUDY; COLOR,URINE AMBER; GLUCOSE, URINE (UA) 1+ (NEGATIVE); KETONES,URINE 1+ (NEGATIVE); LEUKOCYTE ESTERASE ,URINE 2+ (NEGATIVE); NITRITE,URINE POSITIVE (NEGATIVE); PH,URINE 6 (5-9); PROTEIN,URINE 2+ (NEGATIVE); UROBILINOGEN,URINE 4 MG/DL (NORMAL)
[2018-11-26 12:24] LABS: BACTERIA,URINE MODERATE /HPF; BILIRUBIN,URINE 1+ (NEGATIVE); RBC,URINE 0-2 /HPF; WBC,URINE 50-100 /HPF
[2018-11-26 12:47] VITALS: BP 127/60
[2018-11-26] MEDS: inSUlin ASPART (NovoLOG) 1 UNIT/0.01 ML (CHARGE PER UNIT) SC SCH ×3 (12:52→20:57)
[2018-11-26] MEDS: ENOXAPARIN 40 MG/0.4 ML (LOVENOX) SYR SC SCH ×2 (12:52→23:06)
[2018-11-26] MEDS: cefTRIAXone FOR IV USE 1,000 MG in WATER (STERILE) FOR INJECTION 10 ML IV SCH (13:22)
[2018-11-26] MEDS ORDERED: CATHETER FLUSH 10 ML SYR IV PRN (13:45)
[2018-11-26] MEDS ORDERED: PIPERACILLIN/TAZO 4.5 GM/NS 100 ML IV NR ×2 (13:45)
--- NOTE | 2018-11-26 13:49 | Consultation-Cardiology ---
HPI-Cardiology Cardiology Consultation Date of Consultation 11/26/18 Date of Admission Time Seen by Provider: 13:46 Indication: shortness of breath HPI 73 years old gentleman with history of COPD/obstructive sleep apnea, diabetes mellitus, hypertension hyperlipidemia, had recurrent UTI, has been having fever and chills, cough, admitted to the hospital, upper my evaluation he was feeling better. Denied any active pain, no significant dyspnea. He was noted to have slight elevation in troponin level. Denied any active chest pain. He recently moved from [facility] to this area. Home Medications & Allergies Allergies: Coded Allergies: No Known Drug Allergies (Unverified , 11/26/18) Home Medication List Reviewed: Yes OGB-Mnjmmf-Lxxrep Hx Patient Social History Marital Status: Employed/Student: retired ([employer]) Alcohol Use: Denies Use Recreational Drug Use: No Smoking Status: Former Smoker Recent Foreign Travel: No Recent Infectious Disease Expo: No Recent Hopitalizations: Yes Physical Abuse Screen: No Sexual Abuse: No Immunizations Up To Date Date of Pneumonia Vaccine: Mar 28, 2017 Past Medical History discussed below Family Medical History Family Medical Hx noncontributory Review of Systems-General Review of Systems Constitutional: see HPI, chills, dizziness, fever, malaise, weakness EENTM: no symptoms reported Respiratory: cough, short of breath, wheezing Cardiovascular: no symptoms reported Gastrointestinal: nausea, vomiting Genitourinary: no symptoms reported Musculoskeletal: back pain Skin: no symptoms reported Psychiatric/Neurological: No Symptoms Reported All Other Systems Reviewed Negative Unless Noted: Yes Reviewed Test Results Reviewed Test Results Lab Laboratory Tests Test 11/26/18 10:37 11/26/18 11:25 11/26/18 11:51 11/26/18 13:11 Range/Units White Blood Count 9.9 4.3-11.0 10^3/uL Red Blood Count 3.99 L 4.35-5.85 10^6/uL Hemoglobin 11.8 L 13.3-17.7 G/DL Hematocrit 37 L 40-54 % Mean Corpuscular Volume 94 80-99 FL Mean Corpuscular Hemoglobin 30 25-34 PG Mean Corpuscular Hemoglobin Concent 32 32-36 G/DL Red Cell Distribution Width 18.0 H 10.0-14.5 % Platelet Count 155 130-400 10^3/uL Mean Platelet Volume 10.1 7.4-10.4 FL Neutrophils (%) (Auto) 83 H 42-75 % Lymphocytes (%) (Auto) 9 L 12-44 % Monocytes (%) (Auto) 7 0-12 % Eosinophils (%) (Auto) 0 0-10 % Basophils (%) (Auto) 0 0-10 % Neutrophils # (Auto) 8.2 H 1.8-7.8 X 10^3 Lymphocytes # (Auto) 0.9 L 1.0-4.0 X 10^3 Monocytes # (Auto) 0.7 0.0-1.0 X 10^3 Eosinophils # (Auto) 0.0 0.0-0.3 10^3/uL Basophils # (Auto) 0.0 0.0-0.1 10^3/uL Sodium Level 133 L 135-145 MMOL/L Potassium Level 4.0 3.6-5.0 MMOL/L Chloride Level 99 98-107 MMOL/L Carbon Dioxide Level 26 21-32 MMOL/L Anion Gap 8 5-14 MMOL/L Blood Urea Nitrogen 17 7-18 MG/DL Creatinine 0.94 0.60-1.30 MG/DL Estimat Glomerular Filtration Rate > 60 BUN/Creatinine Ratio 18 Glucose Level 364 H 70-105 MG/DL Lactic Acid Level 2.50 *H 1.39 0.50-2.00 MMOL/L Calcium Level 9.2 8.5-10.1 MG/DL Corrected Calcium 9.3 8.5-10.1 MG/DL Total Bilirubin 2.3 H 0.1-1.0 MG/DL Aspartate Amino Transf (AST/SGOT) 16 5-34 U/L Alanine Aminotransferase (ALT/SGPT) 13 0-55 U/L Alkaline Phosphatase 116 40-136 U/L Troponin I 0.204 H <0.028 NG/ML B-Type Natriuretic Peptide 142.8 H <100.0 PG/ML Total Protein 6.8 6.4-8.2 GM/DL Albumin 3.9 3.2-4.5 GM/DL Urine Color DARIAN H Urine Clarity SLIGHTLY CLOUDY Urine pH 6 5-9 Urine Specific Adams 1.025 H 1.016-1.022 Urine Protein 2+ H NEGATIVE Urine Glucose (UA) 1+ H NEGATIVE Urine Ketones 1+ H NEGATIVE Urine Nitrite POSITIVE H NEGATIVE Urine Bilirubin 1+ H NEGATIVE Urine Urobilinogen 4 H NORMAL MG/DL Urine Leukocyte Esterase 2+ H NEGATIVE Urine RBC (Auto) 1+ H NEGATIVE Urine RBC 0-2 /HPF Urine WBC 50-100 H /HPF Urine Squamous Epithelial Cells 2-5 /HPF Urine Crystals NONE /LPF Urine Bacteria MODERATE H /HPF Urine Casts NONE /LPF Urine Mucus MODERATE H /LPF Urine Culture Indicated YES Glucometer 263 H 70-110 MG/DL Physical Exam Physical Exam Vital Signs Vital Signs - First Documented 11/26/18 09:54 Temp 98.2 Pulse 96 Resp 22 B/P (MAP) 125/70 Pulse Ox 95 O2 Delivery Room Air O2 Flow Rate 0.00 Capillary Refill : Height, Weight, BMI Height: 6'7.00" Weight: 355lbs. 0.0oz. 161.755764qd; 40.0 BMI Method: General Appearance: WD/WN, Anxious, Chronically ill, Obese Eyes: Right Eye Normal Inspection, Right Eye PERRL HEENT: PERRL/EOMI, Normal ENT Inspection, Pharynx Normal, Moist Mucous Membranes Neck: Full Range of Motion, Normal Inspection, Non Tender Respiratory: Chest Non Tender, No Accessory Muscle Use, No Respiratory Distress, Decreased Breath Sounds, Wheezing Cardiovascular: Regular Rate, Rhythm, No Edema, No Gallop, No JVD, No Murmur, Normal Peripheral Pulses Gastrointestinal: Normal Bowel Sounds, No Organomegaly, No Pulsatile Mass, Non Tender, Soft Back: Normal Inspection, No CVA Tenderness, No Vertebral Tenderness Extremity: Normal Capillary Refill, Normal Inspection, Normal Range of Motion, Non Tender, No Calf Tenderness, No Pedal Edema Neurologic/Psychiatric: Alert, Oriented x3, No Motor/Sensory Deficits, Normal Mood/Affect Skin: Normal Color, Warm/Dry Lymphatic: No Adenopathy A/P-Cardiology Admission Diagnosis Hypertension Hyperlipidemia Diabetes mellitus Shortness of breath Assessment/Plan Urinary tract infection, recurrent UTI, currently receiving antibiotic and managed by primary care physician COPD/obstructive sleep apnea, recurrent bronchitis, currently feeling better. 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
[2018-11-26] MEDS: RT-ALBUTEROL/IPRATROPIUM 3 ML (DUONEB) VIAL INH SCH ×4 (14:45→23:10)
--- NOTE | 2018-11-26 15:01 | Diagnostic Imaging Report ---
INDICATION: Fever. FINDINGS: Two views of the chest demonstrate the heart size and vascularity to be normal. No pleural effusions are present. Small linear area of atelectasis is present in the right lower lobe. IMPRESSION: There is mild atelectasis in the right lower lobe. Dictated by: Dictated on workstation # [id number]
[2018-11-26 15:59] VITALS: BP 127/60
[2018-11-26 19:27] VITALS: BP 118/54
[2018-11-26] MEDS: PIPERACILLIN/TAZOBACTAM (BULK) 4.5 GM in NS (IVPB) 100 ML IV SCH (19:32)
[2018-11-26] MEDS: SENNA W/DOCUSATE (SENOKOT S) TABLET PO SCH (19:57)
[2018-11-27] VITALS (7 sets, daily range): BP systolic 124–159; BP diastolic 60–74
[2018-11-27] MEDS: NS IV 1000 ML 1,000 ML IV SCH ×3 (01:59→22:15)
[2018-11-27] MEDS: RT-ALBUTEROL/IPRATROPIUM 3 ML (DUONEB) VIAL INH SCH ×5 (02:45→20:41)
[2018-11-27] MEDS: PIPERACILLIN/TAZOBACTAM (BULK) 4.5 GM in NS (IVPB) 100 ML IV SCH (04:38)
[2018-11-27 05:04] LABS: BASOPHILS % (AUTO) 0 % (0-10); EOSINOPHILS # (AUTO) 0.1 10^3/uL (0.0-0.3); EOSINOPHILS % (AUTO) 1 % (0-10); HEMATOCRIT 31 % (40-54); HEMOGLOBIN 9.7 G/DL (13.3-17.7); LYMPHOCYTES # (AUTO) 1.3 X 10^3 (1.0-4.0); LYMPHOCYTES % (AUTO) 22 % (12-44); MEAN CORPUSCULAR HEMOGLOBIN 30 PG (25-34); MEAN CORPUSCULAR HGB CONC 31 G/DL (32-36); MEAN CORPUSCULAR VOLUME 96 FL (80-99); MEAN PLATELET VOLUME 10.7 FL (7.4-10.4); MONOCYTES # (AUTO) 0.8 X 10^3 (0.0-1.0); MONOCYTES % (AUTO) 13 % (0-12); NEUTROPHILS % (AUTO) 64 % (42-75); PLATELET COUNT 119 10^3/uL (130-400); WHITE BLOOD COUNT 6.2 10^3/uL (4.3-11.0)
[2018-11-27 05:28] LABS: ALANINE AMINOTRANSFERASE 12 U/L (0-55); ALBUMIN 3.2 GM/DL (3.2-4.5); ALKALINE PHOSPHATASE 89 U/L (40-136); BILIRUBIN,TOTAL 0.7 MG/DL (0.1-1.0); BUN/CREATININE RATIO 18; CALCIUM 8.4 MG/DL (8.5-10.1); CARBON DIOXIDE 24 MMOL/L (21-32); CHLORIDE 103 MMOL/L (98-107); CREATININE SERUM 0.87 MG/DL (0.60-1.30); GFR ESTIMATED > 60; GLUCOSE 229 MG/DL (70-105); POTASSIUM 3.3 MMOL/L (3.6-5.0); SODIUM 137 MMOL/L (135-145); TOTAL PROTEIN 5.6 GM/DL (6.4-8.2)
[2018-11-27] MEDS: inSUlin ASPART (NovoLOG) 1 UNIT/0.01 ML (CHARGE PER UNIT) SC SCH ×6 (06:12→22:16)
[2018-11-27] MEDS: CYANOCOBALAMIN 1,000 MCG (VITAMIN B-12) TABLET PO SCH (06:12)
[2018-11-27] MEDS ORDERED: guaiFENesin/CODEINE (ROBITUSSIN AC) 10ML UDC PO PRN (08:00)
[2018-11-27] MEDS: TAMSULOSIN 0.4 MG (FLOMAX) CAP PO SCH (08:24)
[2018-11-27] MEDS: FINASTERIDE (PROSCAR) 5 MG TAB PO SCH (08:24)
[2018-11-27] MEDS: metFORMIN 500 MG (GLUCOPHAGE) TAB PO SCH (08:25)
[2018-11-27] MEDS: MELOXICAM 7.5 MG (MOBIC) TABLET PO SCH (08:25)
[2018-11-27] MEDS: OMEGA 3 (FISH OIL) 1000 MG CAP PO SCH (08:25)
[2018-11-27] MEDS: PIOGLITAZONE 30MG (ACTOS) TAB PO SCH (08:25)
[2018-11-27] MEDS: LOSARTAN 100 MG (COZAAR) TABLET PO SCH (08:25)
[2018-11-27] MEDS: ASPIRIN E.C. 81 MG (ECOTRIN) TAB PO SCH (08:25)
[2018-11-27] MEDS: PANTOPRAZOLE 20 MG TABLET (PROTONIX) PO SCH (08:26)
[2018-11-27] MEDS: SENNA W/DOCUSATE (SENOKOT S) TABLET PO SCH ×2 (08:26→21:53)
[2018-11-27] MEDS: SERTRALINE 100 MG (ZOLOFT) TAB PO SCH (08:26)
[2018-11-27] MEDS: LORATADINE (CLARITIN) 10 MG TAB PO SCH (08:26)
[2018-11-27] MEDS: MULTIVIT W/MINERALS TAB (THERAGRAN M) PO SCH (08:26)
[2018-11-27] MEDS: HYDROCODONE/CHLOR 10MG/5 ML (TUSSIONEX SUSP) 5ML UDC PO SCH ×2 (08:27→21:53)
--- NOTE | 2018-11-27 08:31 | Pulmonary Progress Note ---
Subjective Time Seen by a Provider: 08:31 Subjective/Events-last exam Pt appears to be doing better. Sepsis Event Evaluation Height, Weight, BMI Height: 6'7.00" Weight: 355lbs. 0.0oz. 161.814474bb; 40.0 BMI Method: Focused Exam Lactate Level 11/26/18 10:37: Lactic Acid Level 2.50*H 11/26/18 13:11: Lactic Acid Level 1.39 Exam Exam Vital Signs Date Time Temp Pulse Resp B/P (MAP) Pulse Ox O2 Delivery O2 Flow Rate FiO2 11/27/18 07:54 96.7 66 18 134/61 (85) 96 Nasal Cannula 1.00 11/27/18 07:00 64 11/27/18 03:32 98.5 73 18 124/60 (81) 92 Nasal Cannula 1.00 11/27/18 02:45 95 Nasal Cannula 1.00 11/27/18 01:00 69 11/27/18 00:00 97.2 77 18 156/69 (98) 94 Nasal Cannula 11/26/18 23:10 94 Nasal Cannula 1.00 11/26/18 19:30 Nasal Cannula 1.00 11/26/18 19:27 98.0 79 20 118/54 (75) 90 Nasal Cannula 1.00 11/26/18 19:00 67 11/26/18 18:58 94 Nasal Cannula 2.00 11/26/18 16:29 Nasal Cannula 2.00 11/26/18 15:59 98.6 77 20 127/60 (82) 96 Nasal Cannula 1.50 11/26/18 15:02 86 Room Air 11/26/18 13:00 77 11/26/18 12:47 98.2 83 21 127/60 (82) 94 Room Air 0.00 11/26/18 11:26 92 11/26/18 10:31 Room Air 11/26/18 09:54 98.2 96 22 125/70 95 Room Air 0.00 I & O 11/27/18 07:00 Intake Total 4690 ml Output Total 425 ml Balance 4265 ml Height & Weight Height: 6'7.00" Weight: 355lbs. 0.0oz. 161.499344yo; 40.0 BMI Method: General Appearance: No Apparent Distress, WD/WN, Anxious, Obese HEENT: PERRL/EOMI, Normal ENT Inspection, Pharynx Normal Neck: Normal Inspection, Non Tender, Supple Respiratory: Chest Non Tender, No Accessory Muscle Use, No Respiratory Distress, Decreased Breath Sounds Cardiovascular: Regular Rate, Rhythm, No Edema, No Gallop Capillary Refill: Less Than 3 Seconds Gastrointestinal: normal bowel sounds, non tender, soft, no organomegaly, no pulsatile mass Extremity: Normal Capillary Refill, Normal Inspection, No Pedal Edema Neurologic/Psychiatric: Alert, Oriented x3 Skin: Normal Color, Warm/Dry Lymphatic: No Adenopathy Results Lab Laboratory Tests 11/26/18 10:37 11/27/18 04:21 Assessment/Plan Assessment/Plan Persistent SOB and cough with atelectasis -IS -SVNs metabolic lactic acidosis - improving -IVF- decrease to 75 - Rocephin -Diaz cultures pending COPD hx -Labs and CXR reviewed -SVNS JULIAN -CPAP IDDM MICHELLE AMADO DO Nov 27, 2018 08:31
--- NOTE | 2018-11-27 08:58 | Diagnostic Imaging Report ---
PATIENT HISTORY: Abnormal breath sounds, crackles, fever. TECHNIQUE: 2 views of the chest COMPARISON: 11/26/2018 FINDINGS: There are mild airspace opacities in the right lung, particularly the right lung base. Lung volumes are normal. The cardiac silhouette is normal in size. The vascular structures at the wandy bilaterally are mildly prominent. No pleural effusion or pneumothorax is seen. IMPRESSION: Right basilar airspace opacities, may represent atelectasis or infiltrate. Dictated by: Dictated on workstation # [id number]
[2018-11-27] MEDS ORDERED: NON-FORMULARY MEDICATION 1 EA EA (Insulin Glargine,Hum.rec.anlog (Lantus) 40 UNIT) SQ SCH (09:00)
[2018-11-27] MEDS ORDERED: NON-FORMULARY MEDICATION 1 EA EA (Cyanocobalamin (Vitamin B-12) (Vitamin B-12) 2,000 MCG) PO SCH (09:00)
[2018-11-27] MEDS ORDERED: NON-FORMULARY MEDICATION 1 EA EA (Glycopyrrolate/Formoterol Fum (Bevespi Aerosphere Inhale INH SCH (09:00)
[2018-11-27] MEDS ORDERED: NON-FORMULARY MEDICATION 1 EA EA (Cetirizine HCl 10 MG) PO SCH (09:00)
[2018-11-27] MEDS: POTASSIUM CL 10MEQ/50ML IVPB 50 ML IV SCH ×6 (09:33→13:02)
[2018-11-27] MEDS: AZITHROMYCIN 250 MG TAB (ZITHROMAX) PO SCH (09:34)
[2018-11-27] MEDS: ENOXAPARIN 40 MG/0.4 ML (LOVENOX) SYR SC SCH ×2 (11:19→21:55)
--- NOTE | 2018-11-27 11:22 | Progress Note-Hospitalist ---
Subjective HPI/CC On Admission Date Seen by Provider: Nov 27, 2018 Time Seen by Provider: 11:30 Chief complaint: Fever with chills History of present illness: This is a 73-year-old white male clinic patient of mine with a past medical history of COPD, JULIAN, DM, HTN and recurrent UTI who presented as a direct admission for fever and chills after failing oral antibiotics given in my clinic on Thursday. He reports the cough is productive of yellow sputum. I have consulted cardiology and pulmonology in order to evaluate this acute illness and to establish care. Patient recently moved from [facility]. Overall he denies any chest pain he does report some exertional dyspnea. Chest x-ray pending. UA pending. I did mention that he was admitted to urology who follows him on a regular basis. I will place him on IV fluids for supportive care and complete sepsis workup. Subjective/Events-last exam Patient feels much better Replacing potassium per Dr. Coleman orders Chest x-ray did show the right lower lobe atelectasis and he did cough up some blood-streaked sputum after breathing treatment and he feels much better in the right lower lobe today Urology did see patient Rocephin tolerated and Zithromax maintained to treat the UTI Escherichia coli per Frank urine culture and to finish out the bronchitis for COPD respectively Urinating well Blood sugars variable due to infection Review of Systems General: Fatigue Pulmonary: Dyspnea, Cough Focused Exam Lactate Level 11/26/18 10:37: Lactic Acid Level 2.50*H 11/26/18 13:11: Lactic Acid Level 1.39 Objective Exam Vital Signs Vital Signs Date Time Temp Pulse Resp B/P (MAP) Pulse Ox O2 Delivery O2 Flow Rate FiO2 11/27/18 09:48 90 Room Air 11/27/18 08:35 1.00 11/27/18 07:54 96.7 66 18 134/61 (85) Capillary Refill : Less Than 3 Seconds General Appearance: No Apparent Distress, WD/WN, Anxious, Obese HEENT: PERRL/EOMI, Normal ENT Inspection, Pharynx Normal Neck: Normal Inspection, Non Tender, Supple Respiratory: Chest Non Tender, No Accessory Muscle Use, No Respiratory Distress, Decreased Breath Sounds Cardiovascular: Regular Rate, Rhythm, No Edema, No Gallop Gastrointestinal: Normal Bowel Sounds, No Organomegaly, No Pulsatile Mass, Non Tender, Soft Back: Normal Inspection, No CVA Tenderness, No Vertebral Tenderness Extremity: Normal Capillary Refill, Normal Inspection, No Pedal Edema Neurologic/Psychiatric: Alert, Oriented x3 Skin: Normal Color, Warm/Dry Lymphatic: No Adenopathy Results/Procedures Lab Laboratory Tests 11/27/18 04:21 Patient resulted labs reviewed. Assessment/Plan Assessment and Plan Assess & Plan/Chief Complaint Assessment: Sepsis Elevated lactic acid placed on IV fluids HLIVF after potassium completed Failed outpatient antibiotic treatment for bronchitis placed on Zmax to complete Diabetes mellitus insulin-dependent Hypertension Hyperlipidemia Chronic back pain Recurrent UTI Hyponatremia acute Plan: HLIVF Consultations from cardiology and pulmonology and urology are all appreciated Monitor labs Home meds IV abx Await UCx Diagnosis/Problems Diagnosis/Problems (1) Sepsis Status: Acute Qualifiers: Sepsis type: sepsis due to unspecified organism Qualified Codes: A41.9 - Sepsis, unspecified organism (2) COPD with exacerbation Status: Acute (3) JULIAN on CPAP Status: Chronic (4) Diabetes mellitus, insulin dependent (IDDM), controlled Status: Chronic (5) Hypertension Status: Chronic Qualifiers: Hypertension type: essential hypertension Qualified Codes: I10 - Essential (primary) hypertension (6) Hyperlipidemia Status: Chronic Qualifiers: Hyperlipidemia type: mixed hyperlipidemia Qualified Codes: E78.2 - Mixed hyperlipidemia (7) GERD (gastroesophageal reflux disease) Status: Chronic Qualifiers: Esophagitis presence: without esophagitis Qualified Codes: K21.9 - Gastro- esophageal reflux disease without esophagitis (8) Hyponatremia Status: Acute (9) Vitamin B 12 deficiency Status: Chronic (10) Osteoarthritis Status: Chronic Qualifiers: Osteoarthritis location: unspecified site Osteoarthritis type: unspecified Qualified Codes: M19.90 - Unspecified osteoarthritis, unspecified site (11) Fever Status: Acute Qualifiers: Fever type: unspecified Qualified Codes: R50.9 - Fever, unspecified (12) UTI (urinary tract infection) Status: Acute Qualifiers: Urinary tract infection type: acute cystitis Hematuria presence: without hematuria Qualified Codes: N30.00 - Acute cystitis without hematuria Clinical Quality Measures DVT/VTE Risk/Contraindication: Risk Factor Score Per Nursin RFS Level Per Nursing on Admit: 4+=Very High RAMEZ NGO DO Nov 27, 2018 11:22
[2018-11-27] MEDS: cefTRIAXone FOR IV USE 1,000 MG in WATER (STERILE) FOR INJECTION 10 ML IV SCH (13:11)
--- NOTE | 2018-11-27 13:37 | CONSULTATION REPORT ---
DATE OF SERVICE: 11/27/2018 ATTENDING PHYSICIAN: Dr. Da Silva. SUMMARY: A 73-year-old white male known to me who has a followup appointment in 2 months, admitted by Dr. Da Silva with UTI, proven by analysis and some atelectasis. He was started on Rocephin and seems to respond well. He is afebrile. IMPRESSION: Urinary tract infection. PLAN: I will look at his records in the office to see what was done for him prior to this admission. Thank you for letting me participate in the care of this patient. We will follow with you. Job ID: [id number] DocumentID: [id number] Dictated Date: 11/27/2018 10:46:12 Buffing Machine Tender Date: 11/27/2018 13:36:11 Dictated By: FAISAL HUYNH MD
--- NOTE | 2018-11-27 14:46 | Progress Note-Cardiology ---
Cardiology SOAP Progress Note Subjective: Still short of breath with modest improvement since admission No cp or palp or syncope Chronic bilat leg swelling Objective: I&O/Vital Signs 11/27/18 11/27/18 11/27/18 11/27/18 02:45 03:32 07:00 07:54 Temp 98.5 96.7 Pulse 73 64 66 Resp 18 18 B/P (MAP) 124/60 (81) 134/61 (85) Pulse Ox 95 92 96 O2 Delivery Nasal Cannula Nasal Cannula Nasal Cannula O2 Flow Rate 1.00 1.00 1.00 11/27/18 11/27/18 11/27/18 11/27/18 08:35 09:48 11:55 12:36 Temp 97.8 Pulse 70 68 Resp 20 B/P (MAP) 136/65 (88) Pulse Ox 90 91 O2 Delivery Nasal Cannula Room Air Nasal Cannula O2 Flow Rate 1.00 1.00 11/27/18 14:23 Pulse Ox 91 O2 Delivery Room Air 11/27/18 00:00 Intake Total 3170 ml Balance 3170 ml Weight (Pounds): 355 Weight (Ounces): 0.0 Weight (Calculated Kilograms): 161.473267 Constitutional: AAO x 3, well-developed, well-nourished, other (obese) Respiratory: No accessory muscle use; other (fair to good bilat air entry, somewhat prolonged exp) Cardiovascular: regular rate-rhythm, S1 and S2, systolic murmur (soft LENNOX at card base) Gastrointestional: No tender; soft; No guarding, No rebound; audible bowel sounds Extremities: swelling (mild bilateral leg swelling); No clubbing, No cyanosis Neurologic/Psychiatric: oriented x 3, grossly intact, power is 5/5 both on sides Skin: No rash, No ulcerations Results/Procedures: Labs Laboratory Tests 11/26/18 15:59: Glucometer 261H 11/26/18 20:50: Glucometer 314H 11/27/18 04:21: White Blood Count 6.2, Red Blood Count 3.27L, Hemoglobin 9.7L, Hematocrit 31L, Mean Corpuscular Volume 96, Mean Corpuscular Hemoglobin 30, Mean Corpuscular Hemoglobin Concent 31L, Red Cell Distribution Width 18.0H, Platelet Count 119L, Mean Platelet Volume 10.7H, Neutrophils (%) (Auto) 64, Lymphocytes (%) (Auto) 22, Monocytes (%) (Auto) 13H, Eosinophils (%) (Auto) 1, Basophils (%) (Auto) 0, Neutrophils # (Auto) 4.0, Lymphocytes # (Auto) 1.3, Monocytes # (Auto) 0.8, Eosinophils # (Auto) 0.1, Basophils # (Auto) 0.0, Sodium Level 137, Potassium Level 3.3L, Chloride Level 103, Carbon Dioxide Level 24, Anion Gap 10, Blood Urea Nitrogen 16, Creatinine 0.87, Estimat Glomerular Filtration Rate > 60, BUN/Creatinine Ratio 18, Glucose Level 229H, Calcium Level 8.4L, Corrected Calcium 9.0, Total Bilirubin 0.7, Aspartate Amino Transf (AST/SGOT) 12, Alanine Aminotransferase (ALT/SGPT) 12, Alkaline Phosphatase 89, Total Protein 5.6L, Albumin 3.2 11/27/18 05:48: Glucometer 198H 11/27/18 11:03: Glucometer 247H Microbiology 11/26/18 Blood Culture - Preliminary, Resulted No growth 11/26/18 Urine Culture - Preliminary, Resulted Enterococcus faecalis Laboratory Tests 11/26/18 10:37 11/27/18 04:21 A/P: Assessment: Ac exac of COPD due to ac bronchitis JULIAN, noncompliant with CPAP for several weeks Type 2 ND (mild troponin elevation during this admission) Urinary tract infection, recurrent UTI, managed by primary care physician Mild anemia of undetermined etiology, managed by pcp (Dr Da Silva) Hypertension, by history Hyperlipidemia, by history Diabetes mellitus, followed and managed by primary care physician Obesity, BMI is 40 H/o large pulmonary embolism in the early 1999s; h/o IVC filter in Echo of 11/26/18: LVEF 55-65%, mild enlargement of RV and both atria, PASP 30 mmHg Plan: * I reviewed his chart, interviewed him, examined him, and answered his CV- related questions * Continue current regimen * Monitor labs * Replenish K * Risk factor mod discussed EDWIGE MORALES MD [facility]S Nov 27, 2018 14:46
[2018-11-27] MEDS ORDERED: INSULIN GLARGINE HUM REC ANLOG 80 UNIT SC SCH (21:00)
[2018-11-28] MEDS: RT-ALBUTEROL/IPRATROPIUM 3 ML (DUONEB) VIAL INH SCH ×4 (02:36→19:16)
[2018-11-28 04:00] VITALS: BP 142/73
[2018-11-28] MEDS: inSUlin ASPART (NovoLOG) 1 UNIT/0.01 ML (CHARGE PER UNIT) SC SCH ×8 (06:39→21:35)
[2018-11-28] MEDS: MULTIVIT W/MINERALS TAB (THERAGRAN M) PO SCH (06:40)
[2018-11-28] MEDS: PIOGLITAZONE 30MG (ACTOS) TAB PO SCH (06:41)
[2018-11-28] MEDS: LORATADINE (CLARITIN) 10 MG TAB PO SCH (06:41)
[2018-11-28] MEDS: CYANOCOBALAMIN 1,000 MCG (VITAMIN B-12) TABLET PO SCH (06:41)
[2018-11-28] MEDS: metFORMIN 500 MG (GLUCOPHAGE) TAB PO SCH (06:41)
--- NOTE | 2018-11-28 07:08 | Pulmonary Progress Note ---
Subjective Time Seen by a Provider: 07:05 Subjective/Events-last exam PT appears to be doing better Sepsis Event Evaluation Height, Weight, BMI Height: 6'7.00" Weight: 355lbs. 0.0oz. 161.909875iv; 40.0 BMI Method: Focused Exam Lactate Level 11/26/18 10:37: Lactic Acid Level 2.50*H 11/26/18 13:11: Lactic Acid Level 1.39 Exam Exam Vital Signs Date Time Temp Pulse Resp B/P (MAP) Pulse Ox O2 Delivery O2 Flow Rate FiO2 11/28/18 04:00 97.9 74 20 142/73 (96) 95 Room Air 11/28/18 02:36 95 Room Air 11/28/18 01:00 71 11/27/18 23:42 98.8 88 22 159/74 (102) 93 Room Air 11/27/18 20:41 95 Room Air 11/27/18 20:00 93 Room Air 1.00 11/27/18 19:17 98.3 74 22 140/66 (90) 92 Room Air 11/27/18 19:00 79 11/27/18 15:09 97.6 94 20 151/71 (97) 95 Room Air 11/27/18 14:23 91 Room Air 11/27/18 12:36 68 11/27/18 11:55 97.8 70 20 136/65 (88) 91 Nasal Cannula 1.00 11/27/18 09:48 90 Room Air 11/27/18 08:35 Nasal Cannula 1.00 11/27/18 07:54 96.7 66 18 134/61 (85) 96 Nasal Cannula 1.00 I & O 11/28/18 07:00 Intake Total 2260 ml Output Total 500 ml Balance 1760 ml Height & Weight Height: 6'7.00" Weight: 355lbs. 0.0oz. 161.036366gj; 40.0 BMI Method: General Appearance: No Apparent Distress, WD/WN, Anxious, Obese HEENT: PERRL/EOMI, Normal ENT Inspection, Pharynx Normal Neck: Normal Inspection, Non Tender, Supple Respiratory: Chest Non Tender, No Accessory Muscle Use, No Respiratory Dist ress, Decreased Breath Sounds Cardiovascular: Regular Rate, Rhythm, No Edema, No Gallop Capillary Refill: Less Than 3 Seconds Gastrointestinal: normal bowel sounds, non tender, soft, no organomegaly, no pulsatile mass Extremity: Normal Capillary Refill, Normal Inspection, No Pedal Edema Neurologic/Psychiatric: Alert, Oriented x3 Skin: Normal Color, Warm/Dry Lymphatic: No Adenopathy Results Lab Laboratory Tests 11/26/18 10:37 11/27/18 04:21 Assessment/Plan Assessment/Plan Persistent SOB and cough with atelectasis -IS -SVNs UTI -Rocephin COPD hx -Labs and CXR reviewed -SVNS JULIAN -CPAP IDDM MICHELLE AMADO DO Nov 28, 2018 07:08
[2018-11-28 08:00] VITALS: BP 151/79
[2018-11-28] MEDS: TAMSULOSIN 0.4 MG (FLOMAX) CAP PO SCH (08:25)
[2018-11-28] MEDS: MELOXICAM 7.5 MG (MOBIC) TABLET PO SCH (08:25)
[2018-11-28] MEDS: PANTOPRAZOLE 20 MG TABLET (PROTONIX) PO SCH (08:25)
[2018-11-28] MEDS: OMEGA 3 (FISH OIL) 1000 MG CAP PO SCH (08:25)
[2018-11-28] MEDS: SERTRALINE 100 MG (ZOLOFT) TAB PO SCH (08:25)
[2018-11-28] MEDS: ASPIRIN E.C. 81 MG (ECOTRIN) TAB PO SCH (08:25)
[2018-11-28] MEDS: HYDROCODONE/CHLOR 10MG/5 ML (TUSSIONEX SUSP) 5ML UDC PO SCH ×2 (08:25→21:33)
[2018-11-28] MEDS: SENNA W/DOCUSATE (SENOKOT S) TABLET PO SCH ×2 (08:25→21:35)
[2018-11-28] MEDS: AZITHROMYCIN 250 MG TAB (ZITHROMAX) PO SCH (08:26)
[2018-11-28] MEDS: LOSARTAN 100 MG (COZAAR) TABLET PO SCH (08:26)
[2018-11-28] MEDS: FINASTERIDE (PROSCAR) 5 MG TAB PO SCH (09:30)
--- NOTE | 2018-11-28 10:02 | Progress Note-Urology ---
Progress Note-Urology Progress Notes/Assess & Plan Progress/Assessment & Plan DOING AND FEELING BETTER. [facility] S[facility]ITIV[facility] PENDING Final Diagnosis UTI FAISAL HUYNH MD Nov 28, 2018 10:02
[2018-11-28] MEDS: ENOXAPARIN 40 MG/0.4 ML (LOVENOX) SYR SC SCH ×2 (11:47→21:34)
[2018-11-28 12:00] VITALS: BP 130/60
[2018-11-28] MEDS: cefTRIAXone FOR IV USE 1,000 MG in WATER (STERILE) FOR INJECTION 10 ML IV SCH (13:50)
--- NOTE | 2018-11-28 14:28 | Progress Note-Hospitalist ---
Subjective HPI/CC On Admission Date Seen by Provider: Nov 28, 2018 Time Seen by Provider: 11:00 Chief complaint: Fever with chills History of present illness: This is a 73-year-old white male clinic patient of mine with a past medical history of COPD, JULIAN, DM, HTN and recurrent UTI who presented as a direct admission for fever and chills after failing oral antibiotics given in my clinic on Thursday. He reports the cough is productive of yellow sputum. I have consulted cardiology and pulmonology in order to evaluate this acute illness and to establish care. Patient recently moved from [facility]. Overall he denies any chest pain he does report some exertional dyspnea. Chest x-ray pending. UA pending. I did mention that he was admitted to urology who follows him on a regular basis. I will place him on IV fluids for supportive care and complete sepsis workup. Subjective/Events-last exam Patient doing much better today Bowels are moving Hep-locked IV fluids so he is walking around the room Awaiting urine culture Tolerating Rocephin Appreciate cardiology and pulmonology consultations Denies any pain Likely will discharge tomorrow Review of Systems General: Fatigue Focused Exam Lactate Level 11/26/18 10:37: Lactic Acid Level 2.50*H 11/26/18 13:11: Lactic Acid Level 1.39 Objective Exam Vital Signs Vital Signs Date Time Temp Pulse Resp B/P (MAP) Pulse Ox O2 Delivery O2 Flow Rate FiO2 11/28/18 13:00 92 11/28/18 09:42 92 Room Air 11/28/18 08:00 97.9 18 151/79 (103) 11/28/18 08:00 1.00 Capillary Refill : Less Than 3 Seconds General Appearance: No Apparent Distress, WD/WN, Anxious, Obese HEENT: PERRL/EOMI, Normal ENT Inspection, Pharynx Normal Neck: Normal Inspection, Non Tender, Supple Respiratory: Chest Non Tender, No Accessory Muscle Use, No Respiratory Distress, Decreased Breath Sounds Cardiovascular: Regular Rate, Rhythm, No Edema, No Gallop Gastrointestinal: Normal Bowel Sounds, No Organomegaly, No Pulsatile Mass, Non Tender, Soft Back: Normal Inspection, No CVA Tenderness, No Vertebral Tenderness Extremity: Normal Capillary Refill, Normal Inspection, No Pedal Edema Neurologic/Psychiatric: Alert, Oriented x3 Skin: Normal Color, Warm/Dry Lymphatic: No Adenopathy Results/Procedures Lab Patient resulted labs reviewed. Assessment/Plan Assessment and Plan Assess & Plan/Chief Complaint Assessment: Sepsis Elevated lactic acid placed on IV fluids HLIVF after potassium completed Failed outpatient antibiotic treatment for bronchitis placed on Zmax to complete Diabetes mellitus insulin-dependent Hypertension Hyperlipidemia Chronic back pain Recurrent UTI Hyponatremia acute ECOPD with bronchitis placed on macrolide outpatient Plan: HLIVF Consultations from cardiology and pulmonology and urology are all appreciated Monitor labs Home meds IV abx Await UCx DC home tomorrow Diagnosis/Problems Diagnosis/Problems (1) Sepsis Status: Acute Qualifiers: Sepsis type: sepsis due to unspecified organism Qualified Codes: A41.9 - Sepsis, unspecified organism (2) COPD with exacerbation Status: Acute (3) JULIAN on CPAP Status: Chronic (4) Diabetes mellitus, insulin dependent (IDDM), controlled Status: Chronic (5) Hypertension Status: Chronic Qualifiers: Hypertension type: essential hypertension Qualified Codes: I10 - Essential (primary) hypertension (6) Hyperlipidemia Status: Chronic Qualifiers: Hyperlipidemia type: mixed hyperlipidemia Qualified Codes: E78.2 - Mixed hyperlipidemia (7) GERD (gastroesophageal reflux disease) Status: Chronic Qualifiers: Esophagitis presence: without esophagitis Qualified Codes: K21.9 - Gastro- esophageal reflux disease without esophagitis (8) Hyponatremia Status: Acute (9) Vitamin B 12 deficiency Status: Chronic (10) Osteoarthritis Status: Chronic Qualifiers: Osteoarthritis location: unspecified site Osteoarthritis type: unspecified Qualified Codes: M19.90 - Unspecified osteoarthritis, unspecified site (11) Fever Status: Acute Qualifiers: Fever type: unspecified Qualified Codes: R50.9 - Fever, unspecified (12) UTI (urinary tract infection) Status: Acute Qualifiers: Urinary tract infection type: acute cystitis Hematuria presence: without hematuria Qualified Codes: N30.00 - Acute cystitis without hematuria Clinical Quality Measures DVT/VTE Risk/Contraindication: Risk Factor Score Per Nursin RFS Level Per Nursing on Admit: 4+=Very High RAMEZ NGO DO Nov 28, 2018 14:28
--- NOTE | 2018-11-28 14:40 | Progress Note-Cardiology ---
Cardiology SOAP Progress Note Subjective: Reports improvement of shortness of breath No cp or palp or syncope Objective: I&O/Vital Signs 11/28/18 11/28/18 11/28/18 11/28/18 04:00 07:00 08:00 08:00 Temp 97.9 97.9 Pulse 74 77 72 Resp 20 18 B/P (MAP) 142/73 (96) 151/79 (103) Pulse Ox 95 95 95 O2 Delivery Room Air Room Air Room Air O2 Flow Rate 1.00 11/28/18 11/28/18 11/28/18 09:42 13:00 14:27 Pulse 92 Pulse Ox 92 92 O2 Delivery Room Air Room Air 11/28/18 00:00 Intake Total 1860 ml Output Total 500 ml Balance 1360 ml Weight (Pounds): 355 Weight (Ounces): 0.0 Weight (Calculated Kilograms): 161.363449 Constitutional: AAO x 3, well-developed, well-nourished, other (obese) Respiratory: No accessory muscle use; other (fair to good bilat air entry, somewhat prolonged exp) Cardiovascular: regular rate-rhythm, S1 and S2, systolic murmur (soft LENNOX at card base) Gastrointestional: No tender; soft; No guarding, No rebound; audible bowel sounds Extremities: swelling (mild bilateral leg swelling); No clubbing, No cyanosis Neurologic/Psychiatric: oriented x 3, grossly intact, power is 5/5 both on sides Skin: No rash, No ulcerations Results/Procedures: Labs Laboratory Tests 11/27/18 16:21: Glucometer 121H 11/27/18 16:40: Stool Occult Blood Immunoassay NEGATIVE 11/27/18 21:03: Glucometer 104 11/28/18 05:06: Glucometer 94 11/28/18 11:23: Glucometer 167H Microbiology 11/26/18 Blood Culture - Preliminary, Resulted No growth 11/26/18 Urine Culture - Preliminary, Resulted Enterococcus faecalis Laboratory Tests 11/27/18 04:21 A/P: Assessment: Ac exac of COPD due to ac bronchitis JULIAN, noncompliant with CPAP for several weeks Type 2 [place] (mild troponin elevation during this admission) Urinary tract infection, recurrent UTI, managed by primary care physician Mild anemia of undetermined etiology, managed by pcp (Dr Da Silva) Hypertension, by history Hyperlipidemia, by history Diabetes mellitus, followed and managed by primary care physician Obesity, BMI is 40 H/o large pulmonary embolism in the early 1999s; h/o IVC filter in Echo of 11/26/18: LVEF 55-65%, mild enlargement of RV and both atria, PASP 30 mmHg Hypokalemia Plan: * Replenish K * Monitor labs * Risk factor mod discussed. He states he has regular cardiac f/u with Dr Andrey villegas in [place], EDWIGE Cisneros MD FACP FAC CCDS Nov 28, 2018 14:40
[2018-11-28 15:34] VITALS: BP 134/56
[2018-11-28] MEDS ORDERED: KCL 20 MEQ TAB (K-DUR) PO NR (16:26)
[2018-11-28 19:02] VITALS: BP 161/73
[2018-11-28 23:52] VITALS: BP 153/63
[2018-11-29 04:34] VITALS: BP 140/66
[2018-11-29 05:34] LABS: BASOPHILS % (AUTO) 0 % (0-10); EOSINOPHILS # (AUTO) 0.1 10^3/uL (0.0-0.3); EOSINOPHILS % (AUTO) 2 % (0-10); HEMATOCRIT 34 % (40-54); HEMOGLOBIN 10.4 G/DL (13.3-17.7); LYMPHOCYTES # (AUTO) 1.3 X 10^3 (1.0-4.0); LYMPHOCYTES % (AUTO) 23 % (12-44); MEAN CORPUSCULAR HEMOGLOBIN 29 PG (25-34); MEAN CORPUSCULAR HGB CONC 31 G/DL (32-36); MEAN CORPUSCULAR VOLUME 96 FL (80-99); MEAN PLATELET VOLUME 10.7 FL (7.4-10.4); MONOCYTES # (AUTO) 0.4 X 10^3 (0.0-1.0); MONOCYTES % (AUTO) 8 % (0-12); NEUTROPHILS # (AUTO) 3.7 X 10^3 (1.8-7.8); NEUTROPHILS % (AUTO) 67 % (42-75); PLATELET COUNT 115 10^3/uL (130-400); RED CELL DISTRIBUTION WIDTH 17.6 % (10.0-14.5); WHITE BLOOD COUNT 5.6 10^3/uL (4.3-11.0)
[2018-11-29 05:56] LABS: ALANINE AMINOTRANSFERASE 13 U/L (0-55); ALBUMIN 3.5 GM/DL (3.2-4.5); ALKALINE PHOSPHATASE 94 U/L (40-136); BILIRUBIN,TOTAL 0.8 MG/DL (0.1-1.0); BUN/CREATININE RATIO 13; CALCIUM 8.7 MG/DL (8.5-10.1); CARBON DIOXIDE 23 MMOL/L (21-32); CHLORIDE 104 MMOL/L (98-107); CREATININE SERUM 0.83 MG/DL (0.60-1.30); GFR ESTIMATED > 60; GLUCOSE 140 MG/DL (70-105); POTASSIUM 4.1 MMOL/L (3.6-5.0); SODIUM 137 MMOL/L (135-145); TOTAL PROTEIN 6.1 GM/DL (6.4-8.2)
[2018-11-29] MEDS: inSUlin ASPART (NovoLOG) 1 UNIT/0.01 ML (CHARGE PER UNIT) SC SCH ×4 (06:08→12:39)
[2018-11-29] MEDS: RT-ALBUTEROL/IPRATROPIUM 3 ML (DUONEB) VIAL INH SCH ×2 (06:27→10:49)
[2018-11-29] MEDS: PIOGLITAZONE 30MG (ACTOS) TAB PO SCH (06:54)
[2018-11-29] MEDS: CYANOCOBALAMIN 1,000 MCG (VITAMIN B-12) TABLET PO SCH (06:54)
[2018-11-29] MEDS: MULTIVIT W/MINERALS TAB (THERAGRAN M) PO SCH (06:55)
[2018-11-29] MEDS: metFORMIN 500 MG (GLUCOPHAGE) TAB PO SCH (06:55)
[2018-11-29 08:00] VITALS: BP 163/71
--- NOTE | 2018-11-29 08:42 | Pulmonary Progress Note ---
Subjective Time Seen by a Provider: 08:41 Subjective/Events-last exam SOB improved. Sepsis Event Evaluation Height, Weight, BMI Height: 6'7.00" Weight: 355lbs. 0.0oz. 161.165289xn; 40.0 BMI Method: Focused Exam Lactate Level 11/26/18 10:37: Lactic Acid Level 2.50*H 11/26/18 13:11: Lactic Acid Level 1.39 Exam Exam Vital Signs Date Time Temp Pulse Resp B/P (MAP) Pulse Ox O2 Delivery O2 Flow Rate FiO2 11/29/18 08:00 98.2 77 18 163/71 (101) 93 Room Air 11/29/18 06:27 91 Room Air 11/29/18 04:34 98.0 75 20 140/66 (90) 95 Room Air 11/29/18 01:00 74 11/28/18 23:52 98.4 72 20 153/63 (93) 94 Room Air 11/28/18 20:00 92 Room Air 1.00 11/28/18 19:16 92 Room Air 11/28/18 19:02 99.4 76 22 161/73 (102) 95 Room Air 11/28/18 19:00 76 11/28/18 15:34 97.7 68 20 134/56 (82) 93 Room Air 11/28/18 14:27 92 Room Air 11/28/18 13:00 92 11/28/18 12:00 98.7 72 18 130/60 (83) 93 Room Air 11/28/18 09:42 92 Room Air I & O 11/29/18 07:00 Intake Total 1750 ml Balance 1750 ml Height & Weight Height: 6'7.00" Weight: 355lbs. 0.0oz. 161.079076zm; 40.0 BMI Method: General Appearance: No Apparent Distress, WD/WN, Anxious, Obese HEENT: PERRL/EOMI, Normal ENT Inspection, Pharynx Normal Neck: Normal Inspection, Non Tender, Supple Respiratory: Chest Non Tender, No Accessory Muscle Use, No Respiratory Distress, Decreased Breath Sounds Cardiovascular: Regular Rate, Rhythm, No Edema, No Gallop Capillary Refill: Less Than 3 Seconds Gastrointestinal: normal bowel sounds, non tender, soft, no organomegaly, no pulsatile mass Extremity: Normal Capillary Refill, Normal Inspection, No Pedal Edema Neurologic/Psychiatric: Alert, Oriented x3 Skin: Normal Color, Warm/Dry Lymphatic: No Adenopathy Results Lab Laboratory Tests 11/29/18 04:53 Assessment/Plan Assessment/Plan Persistent SOB and cough with atelectasis -IS -SVNs UTI -Rocephin COPD hx -Labs and CXR reviewed -SVNS JULIAN -CPAP IDDM MICHELLE AMADO DO Nov 29, 2018 08:42
[2018-11-29] MEDS: HYDROCODONE/CHLOR 10MG/5 ML (TUSSIONEX SUSP) 5ML UDC PO SCH (08:45)
[2018-11-29] MEDS: PANTOPRAZOLE 20 MG TABLET (PROTONIX) PO SCH (08:47)
[2018-11-29] MEDS: SERTRALINE 100 MG (ZOLOFT) TAB PO SCH (08:47)
[2018-11-29] MEDS: LOSARTAN 100 MG (COZAAR) TABLET PO SCH (08:47)
[2018-11-29] MEDS: AZITHROMYCIN 250 MG TAB (ZITHROMAX) PO SCH (08:47)
[2018-11-29] MEDS: LORATADINE (CLARITIN) 10 MG TAB PO SCH (08:47)
[2018-11-29] MEDS: TAMSULOSIN 0.4 MG (FLOMAX) CAP PO SCH (08:47)
[2018-11-29] MEDS: MELOXICAM 7.5 MG (MOBIC) TABLET PO SCH (08:47)
[2018-11-29] MEDS: ASPIRIN E.C. 81 MG (ECOTRIN) TAB PO SCH (08:47)
[2018-11-29] MEDS: OMEGA 3 (FISH OIL) 1000 MG CAP PO SCH (08:47)
[2018-11-29] MEDS: SENNA W/DOCUSATE (SENOKOT S) TABLET PO SCH (08:47)
[2018-11-29] MEDS: FINASTERIDE (PROSCAR) 5 MG TAB PO SCH (08:56)
--- NOTE | 2018-11-29 09:05 | Progress Note-Cardiology ---
Cardiology SOAP Progress Note Objective: I&O/Vital Signs Weight (Pounds): 355 Weight (Ounces): 0.0 Weight (Calculated Kilograms): 161.719197 Constitutional: AAO x 3, well-developed, well-nourished, other (obese) Respiratory: No accessory muscle use; other (fair to good bilat air entry, somewhat prolonged exp) Cardiovascular: regular rate-rhythm, S1 and S2, systolic murmur (soft LENNOX at card base) Gastrointestional: No tender; soft; No guarding, No rebound; audible bowel sounds Extremities: swelling (mild bilateral leg swelling); No clubbing, No cyanosis Neurologic/Psychiatric: oriented x 3, grossly intact, power is 5/5 both on sides Skin: No rash, No ulcerations Results/Procedures: Labs Microbiology 11/26/18 Blood Culture - Final, Complete No growth 11/26/18 Urine Culture - Final, Complete Enterococcus faecalis A/P: Assessment: Ac exac of COPD due to ac bronchitis JULIAN, noncompliant with CPAP for several weeks Type 2 [place] (mild troponin elevation during this admission) Urinary tract infection, recurrent UTI, managed by primary care physician Mild anemia of undetermined etiology, managed by pcp (Dr Da Silva) Hypertension, by history Hyperlipidemia, by history Diabetes mellitus, followed and managed by primary care physician Obesity, BMI is 40 H/o large pulmonary embolism in the early 1999s; h/o IVC filter in Echo of 11/26/18: LVEF 55-65%, mild enlargement of RV and both atria, PASP 30 mmHg Hypokalemia Plan: * Replenish K * Monitor labs * Risk factor mod discussed * He states [place] HEATHER L [facility] Nov 29, 2018 09:05
--- NOTE | 2018-11-29 09:17 | Progress Note-Cardiology ---
Cardiology SOAP Progress Note Subjective: Sitting up in bed this morning. No c/o CP, palpitations, syncope or near syncope. Wants to go home. Objective: I&O/Vital Signs 11/28/18 11/29/18 11/29/18 11/29/18 23:52 01:00 04:34 06:27 Temp 98.4 98.0 Pulse 72 74 75 Resp 20 20 B/P (MAP) 153/63 (93) 140/66 (90) Pulse Ox 94 95 91 O2 Delivery Room Air Room Air Room Air 11/29/18 08:00 Temp 98.2 Pulse 77 Resp 18 B/P (MAP) 163/71 (101) Pulse Ox 93 O2 Delivery Room Air 11/29/18 00:00 Intake Total 1550 ml Balance 1550 ml Weight (Pounds): 355 Weight (Ounces): 0.0 Weight (Calculated Kilograms): 161.881968 Constitutional: AAO x 3, well-developed, well-nourished, other (obese) Respiratory: No accessory muscle use; other (fair to good bilat air entry, somewhat prolonged exp) Cardiovascular: regular rate-rhythm, S1 and S2, systolic murmur (soft LENNOX at card base) Gastrointestional: No tender; soft; No guarding, No rebound; audible bowel sounds Extremities: swelling (mild bilateral leg swelling); No clubbing, No cyanosis Neurologic/Psychiatric: oriented x 3, grossly intact, power is 5/5 both on sides Skin: No rash, No ulcerations Results/Procedures: Labs Laboratory Tests 11/28/18 11:23: Glucometer 167H 11/28/18 16:20: Glucometer 98 11/28/18 20:58: Glucometer 72 11/28/18 22:44: Glucometer 115H 11/29/18 04:53: White Blood Count 5.6, Red Blood Count 3.55L, Hemoglobin 10.4L, Hematocrit 34L, Mean Corpuscular Volume 96, Mean Corpuscular Hemoglobin 29, Mean Corpuscular Hemoglobin Concent 31L, Red Cell Distribution Width 17.6H, Platelet Count 115L, Mean Platelet Volume 10.7H, Neutrophils (%) (Auto) 67, Lymphocytes (%) (Auto) 23, Monocytes (%) (Auto) 8, Eosinophils (%) (Auto) 2, Basophils (%) (Auto) 0, Neutrophils # (Auto) 3.7, Lymphocytes # (Auto) 1.3, Monocytes # (Auto) 0.4, Eosinophils # (Auto) 0.1, Basophils # (Auto) 0.0, Sodium Level 137, Potassium Level 4.1, Chloride Level 104, Carbon Dioxide Level 23, Anion Gap 10, Blood Urea Nitrogen 11, Creatinine 0.83, Estimat Glomerular Filtration Rate > 60, BUN/Creatinine Ratio 13, Glucose Level 140H, Calcium Level 8.7, Corrected C alcium 9.1, Total Bilirubin 0.8, Aspartate Amino Transf (AST/SGOT) 17, Alanine Aminotransferase (ALT/SGPT) 13, Alkaline Phosphatase 94, Total Protein 6.1L, Albumin 3.5 11/29/18 05:30: Glucometer 141H Microbiology 11/26/18 Blood Culture - Preliminary, Resulted No growth 11/26/18 Urine Culture - Preliminary, Resulted Enterococcus faecalis A/P: Assessment: Ac exac of COPD due to ac bronchitis JULIAN, noncompliant with CPAP for several weeks Type 2 [place] (mild troponin elevation during this admission) Urinary tract infection, recurrent UTI, managed by primary care physician Mild anemia of undetermined etiology, managed by pcp (Dr Da Silva) Hypertension, by history Hyperlipidemia, by history Diabetes mellitus, followed and managed by primary care physician Obesity, BMI is 40 H/o large pulmonary embolism in the early 1999s; h/o IVC filter in Echo of 11/26/18: LVEF 55-65%, mild enlargement of RV and both atria, PASP 30 mmHg Hypokalemia Plan: * Replenish K * Monitor labs * BP improved * Risk factor mod discussed * He states [place] HE[place] ARNP Nov 29, 2018 09:17
[2018-11-29] MEDS ORDERED: AMOX-358 PO (09:58)
--- NOTE | 2018-11-29 10:00 | Discharge Summary-Hospitalist ---
Diagnosis/Chief Complaint Date of Admission Nov 26, 2018 at 09:34 Date of Discharge Discharge Date: Nov 29, 2018 Admission Diagnosis Assessment: Sepsis Elevated lactic acid placed on IV fluids Failed outpatient antibiotic treatment for bronchitis Diabetes mellitus insulin-dependent Hypertension Hyperlipidemia Chronic back pain Recurrent UTI Hyponatremia acute Plan: Gentle IV fluid Consult cardiology and pulmonology and urology Monitor labs Check chest x-ray Discharge Diagnosis (1) Sepsis Status: Acute (2) COPD with exacerbation Status: Acute (3) JULIAN on CPAP Status: Chronic (4) Diabetes mellitus, insulin dependent (IDDM), controlled Status: Chronic (5) Hypertension Status: Chronic (6) Hyperlipidemia Status: Chronic (7) GERD (gastroesophageal reflux disease) Status: Chronic (8) Hyponatremia Status: Acute (9) Vitamin B 12 deficiency Status: Chronic (10) Osteoarthritis Status: Chronic (11) Fever Status: Acute (12) UTI (urinary tract infection) Status: Acute Discharge Summary Discharge Physical Exam Allergies: Coded Allergies: No Known Drug Allergies (Unverified , 11/26/18) Vitals & I&Os Vital Signs Date Time Temp Pulse Resp B/P (MAP) Pulse Ox O2 Delivery O2 Flow Rate FiO2 11/29/18 15:46 11/29/18 10:49 93 Room Air 11/29/18 08:00 98.2 77 18 11/28/18 20:00 1.00 General Appearance: No Apparent Distress, WD/WN Respiratory: Chest Non Tender, Lungs Clear, Normal Breath Sounds, No Accessory Muscle Use, No Respiratory Distress Cardiovascular: Regular Rate, Rhythm, No Edema, No Gallop, No JVD, No Murmur, Normal Peripheral Pulses Neurologic/Psychiatric: Alert, Oriented x3, No Motor/Sensory Deficits, Normal Mood/Affect Hospital Course Was the Problem List Reviewed?: Yes Hospital course: Pt had an uneventful hospital course for three days, he was admitted for fever and cough and initiated workup for sepsis which revealed elevated lactic acid. UTI was found and right lower lobe atelectasis early pneumonia. Pt was placed on appropriate antibiotics. Dr. Coleman was consulted for COPD. Dr. Morillo was consulted for slightly elevated Tryponin and Dr. Liu was consulted for recurrent UTI. He was deemed stable for discharge after responding to antibiotic treatment and was scheduled to see me in one week along with Dr. Liu. He was discharged on Augmentin BID for five days. Labs (last 24 hrs) Laboratory Tests 11/28/18 22:44: Glucometer 115H 11/29/18 04:53: White Blood Count 5.6, Red Blood Count 3.55L, Hemoglobin 10.4L, Hematocrit 34L, Mean Corpuscular Volume 96, Mean Corpuscular Hemoglobin 29, Mean Corpuscular Hemoglobin Concent 31L, Red Cell Distribution Width 17.6H, Platelet Count 115L, Mean Platelet Volume 10.7H, Neutrophils (%) (Auto) 67, Lymphocytes (%) (Auto) 23, Monocytes (%) (Auto) 8, Eosinophils (%) (Auto) 2, Basophils (%) (Auto) 0, Neutrophils # (Auto) 3.7, Lymphocytes # (Auto) 1.3, Monocytes # (Auto) 0.4, Eosinophils # (Auto) 0.1, Basophils # (Auto) 0.0, Sodium Level 137, Potassium Level 4.1, Chloride Level 104, Carbon Dioxide Level 23, Anion Gap 10, Blood Urea Nitrogen 11, Creatinine 0.83, Estimat Glomerular Filtration Rate > 60, BUN/Creatinine Ratio 13, Glucose Level 140H, Calcium Level 8.7, Corrected Calci um 9.1, Total Bilirubin 0.8, Aspartate Amino Transf (AST/SGOT) 17, Alanine Aminotransferase (ALT/SGPT) 13, Alkaline Phosphatase 94, Total Protein 6.1L, Albumin 3.5 11/29/18 05:30: Glucometer 141H 11/29/18 11:01: Glucometer 186H Microbiology 11/26/18 Blood Culture - Preliminary, Resulted No growth 11/26/18 Urine Culture - Final, Complete Enterococcus faecalis Patient resulted labs reviewed. Pending Labs Discussion & Recommendations Discharge Planning: <30 minutes discharge planning Discharge Home Medications: Active Scripts Active Augmentin 875-125 Tablet (Amoxicillin/Potassium Clav) 1 Each Tablet 1 Each PO BID Reported Proair Hfa (Albuterol Sulfate) 1 Puff Puff 2 Puff INH Q4H PRN Aspirin EC (Aspirin) 81 Mg Tablet. 81 Mg PO DAILY Sertraline HCl 100 Mg Tablet 100 Mg PO DAILY Pioglitazone HCl 15 Mg Tablet 15 Mg PO DAILY Losartan Potassium 100 Mg Tablet 100 Mg PO DAILY Omeprazole 20 Mg Capsule. 20 Mg PO DAILY Metformin HCl 500 Mg Tablet 500 Mg PO DAILY Meloxicam 7.5 Mg Tablet 7.5 Mg PO DAILY Cetirizine HCl 10 Mg Tablet 10 Mg PO DAILY Fish Oil 1,000 mg Capsule (Chappell 3 Polyunsat Fatty Acids) 1,000 Mg Cap 1,000 Mg PO DAILY Vitamin B-12 (Cyanocobalamin (Vitamin B-12)) 2,000 Mcg Tablet 2,000 Mcg PO DAILY Ocuvite Adult 50 Plus Softgel (C,E,Zinc,Copper 11/Msiek5o/Lut) 1 Each Capsule 1 Cap PO DAILY Bevespi Aerosphere Inhaler (Glycopyrrolate/Formoterol Fum) 10.7 Gm Hfa.aer.ad 2 Puff INH BID Lantus (Insulin Glargine,Hum.rec.anlog) 100 Unit/1 Ml Vial 40 Unit SQ DAILY Humalog (Insulin Lispro) 100 Unit/1 Ml Vial 30 Units SC TIDAC Virtussin AC Liquid (Guaifenesin/Codeine Phosphate) 118 Ml Liquid 5 Ml PO Q4H PRN Flomax (Tamsulosin HCl) 0.4 Mg Cap 0.4 Mg PO DAILY Finasteride 5 Mg Tablet 5 Mg PO DAILY Lantus (Insulin Glargine,Hum.rec.anlog) 100 Unit/1 Ml Vial 80 Units SC HS Instructions to patient/family Please see electronic discharge instructions given to patient. Clinical Quality Measures DVT/VTE Risk/Contraindication: Risk Factor Score Per Nursin RFS Level Per Nursing on Admit: 4+=Very High Problem Qualifiers (1) Sepsis: Sepsis type: sepsis due to unspecified organism Qualified Codes: A41.9 - Sepsis, unspecified organism (2) Hypertension: Hypertension type: essential hypertension Qualified Codes: I10 - Essential (primary) hypertension (3) Hyperlipidemia: Hyperlipidemia type: mixed hyperlipidemia Qualified Codes: E78.2 - Mixed hyperlipidemia (4) GERD (gastroesophageal reflux disease): Esophagitis presence: without esophagitis Qualified Codes: K21.9 - Gastro- esophageal reflux disease without esophagitis (5) Osteoarthritis: Osteoarthritis location: unspecified site Osteoarthritis type: unspecified Qualified Codes: M19.90 - Unspecified osteoarthritis, unspecified site (6) Fever: Fever type: unspecified Qualified Codes: R50.9 - Fever, unspecified (7) UTI (urinary tract infection): Urinary tract infection type: acute cystitis Hematuria presence: without hematuria Qualified Codes: N30.00 - Acute cystitis without hematuria RAMEZ NGO DO Nov 29, 2018 10:00
--- NOTE | 2018-11-29 10:19 | Progress Note-Urology ---
Progress Note-Urology Progress Notes/Assess & Plan Progress/Assessment & Plan HOME TODAY ON AUGMENTIN. OFFICE 3 WEEKS Final Diagnosis UTI FAISAL HUYNH MD Nov 29, 2018 10:19
[2018-11-29] MEDS: ENOXAPARIN 40 MG/0.4 ML (LOVENOX) SYR SC SCH (12:38)
[2018-11-29] MEDS ORDERED: inSUlin ASPART (NovoLOG) 1 UNIT/0.01 ML (CHARGE PER UNIT) ONE (19:23)
== END 2018-11-29 15:43 | disposition home or self-care (01) ==
LOC: 4TH 09:34
PROVIDERS: ADMIT Internal Medicine; ATTEND Internal Medicine
DX: A41.9 Sepsis, unspecified organism (principal); J44.0 Chronic obstructive pulmonary disease with (acute) lower respiratory infection; J44.1 Chronic obstructive pulmonary disease with (acute) exacerbation; J20.9 Acute bronchitis, unspecified; N30.00 Acute cystitis without hematuria; B96.20 Unspecified Escherichia coli [E. coli] as the cause of diseases classified elsewhere; I21.A1 Myocardial infarction type 2; J98.11 Atelectasis; E87.2 Acidosis; E87.1 Hypo-osmolality and hyponatremia; E87.6 Hypokalemia; D64.9 Anemia, unspecified; E53.8 Deficiency of other specified B group vitamins; G47.33 Obstructive sleep apnea (adult) (pediatric); E11.9 Type 2 diabetes mellitus without complications; I10 Essential (primary) hypertension; E78.5 Hyperlipidemia, unspecified; N40.0 Benign prostatic hyperplasia without lower urinary tract symptoms; K21.9 Gastro-esophageal reflux disease without esophagitis; M19.91 Primary osteoarthritis, unspecified site; E66.01 Morbid (severe) obesity due to excess calories; Z68.41 Body mass index [BMI] 40.0-44.9, adult; Z86.711 Personal history of pulmonary embolism; Z86.718 Personal history of other venous thrombosis and embolism; Z79.82 Long term (current) use of aspirin; Z79.4 Long term (current) use of insulin; Z79.899 Other long term (current) drug therapy; Z91.14 Patient's other noncompliance with medication regimen; Z87.891 Personal history of nicotine dependence
CPT/HCPCS: 36415; 71046; 80053; 81000; 82274; 82962; 83605; 83880; 84484; 85025; 87040; 87077; 87088; 87186; 93306; 94640; 94664; 94760; 99211; G0378

== ENCOUNTER 2018-11-30 20:00 | Inpatient (IN) | payer MEDICARE, OTHER ==
[~2018-11-30] VITALS: Ht 200.7 cm; Wt 163.5 kg
[~2018-11-30 20:00] MED LIST: AMOX-358 PO; ASPI-983 PO; C,E,1CAP PO; CETI10TA17 PO; CLAR-19 PO; CYAN200014 PO; FINA5TAB6 PO; GLYC10.7 INH; GUAI-813 PO; INSU100V SC; INSU100V6 SC; INSU100V6 SQ; LOSA100T57 PO; MELO7.5T46 PO; METF-397 PO; NITR100C PO; OMEP20CA12 PO; OMG1KC PO; PIOG15TA67 PO; RT-ALBUINH INH; SERT100T8 PO; TAMS0.4C98 PO
--- OUTSIDE RECORDS SUMMARY | 2018-11-30 20:08 | XMS REPORT | Continuity of Care Document ---
[...] 5 MEDIA PLATED Setup at 21:56 on 10/14/[id number] [employer] Position C48 CULTURE SOURCE drawn @ Right AC Blood Culture - 10/14/18 21:40 PRELIM CULTURE RESULTS Blood Culture Negative, No Growth Day 1 MEDIA PLATED Setup at 21:56 on 10/14/[id number] [employer] Media Position C48 CULTURE SOURCE drawn [...] 5-8.5 Urine-Protein Negative Negative Urine-RBC 0-2/HPF Urine-Specific [place] 1.015 1.000-1.030 Urine-WBC TNTC Urobilinogen 2.0 0.2-1.0 [...] 5 MEDIA PLATED Setup at 22:12 on 10/14/[id number] [employer] Position C44 CULTURE SOURCE drawn @ Left AC Blood Culture - 10/14/18 21:45 PRELIM CULTURE RESULTS Blood Culture Negative, No Growth Day 1 MEDIA PLATED Setup at 22:12 on 10/14/[id number] [employer] Position C44 CULTURE SOURCE drawn [...] Status Pt. Type Provider Facility Loc./Unit Complaint [id number] 10/15/2018 06:42:00 10/18/2018 12:50:00 DIS Inpatient Raven Da Silva [facility] MED-SURG [id number] 09/20/2018 09:41:00 09/20/2018 23:59:00 DIS Outpatient Raven Da Silva [id number] 06/14/2018 09:11:00 06/14/2018 23:59:00 DIS Outpatient Raven Da Silva [id number] 04/06/2018 13:54:00 04/29/2018 07:17:00 DIS Outpatient DANNIELLE ELLIS [id number] 10/14/2018 22:00:01 Document Registration [id number] 05/05/2018 08:42:00 Document Registration [id number] 04/20/2018 16:30:10 04/20/2018 23:59:59 CLS Outpatient Demarco Ford [id number] 04/08/2018 15:12:57 04/08/2018 23:59:59 CLS Outpatient Wan Beyer [id number] 03/02/2018 10:11:23 03/02/2018 23:59:59 CLS Outpatient Nanda Herman [id number] 07/15/2015 12:54:32 07/15/2015 23:59:59 CLS Outpatient Demarco Ford [id number] 06/11/2015 16:45:49 06/11/2015 23:59:59 CLS Outpatient Hedy Sanchez [id number] 02/11/2015 15:59:10 02/11/2015 23:59:59 CLS Outpatient Demarco Ford [id number] 10/14/2018 21:02:00 Document Registration
[2018-11-30] MEDS ORDERED: ONDANSETRON 4 MG/2 ML (SDV) Z0FRAN ONE (20:12)
[2018-11-30] MEDS ORDERED: IBUPROFEN 800 MG (MOTRIN) TAB PO ONE (20:30)
[2018-11-30] MEDS ORDERED: HOLD METFORMIN - RECEIVED CONTRAST 20 ML VIAL IV SCH (20:30)
[2018-11-30] MEDS ORDERED: IOHEXOL 350 MG/ML 150 ML (OMNIPAQUE 350) VIAL IV ONE (20:30)
[2018-11-30] MEDS ORDERED: ACETAMINOPHEN 500 MG TAB (TYLENOL) PO ONE (20:30)
[2018-11-30] MEDS ORDERED: ONDANSETRON 4 MG/2 ML (SDV) Z0FRAN IVP ONE (20:30)
[2018-11-30] MEDS ORDERED: LACTATED RINGERS 1,000 ML IV SCH (20:30)
[2018-11-30] MEDS ORDERED: NS 100 ML (IVPB) BAG IV ONE (20:30)
--- NOTE | 2018-11-30 20:30 | ED Fever ---
History of Present Illness General Stated Complaint: CHILLS,VOMITING Source: patient Exam Limitations: no limitations History of Present Illness Date Seen by Provider: Nov 30, 2018 Time Seen by Provider: 20:28 Initial Comments To ER with reports of sudden onset vomiting and chills about one hour ago. He is currently on Augmentin antibiotics for urinary tract infection. He was recently admitted to the hospital found to have enterococcal UTI, left lower lobe atelectasis. He is feeling overall better but had sudden onset of worsening this evening while visiting his was also admitted upstairs to the rehabilitation unit. He denies pain. Timing/Duration: just prior to arrival Fever Quality: greater than 102 F Associated Symptoms: nausea/vomiting Allergies and Home Medications Allergies Coded Allergies: No Known Drug Allergies (Unverified , 11/26/18) Home Medications Albuterol Sulfate 1 Puff Puff, 2 PUFF INH Q4H PRN for SHORTNESS OF BREATH, (Reported) Amoxicillin/Potassium Clav 1 Each Tablet, 1 EACH PO BID Prescribed by: RAMEZ NGO on 11/29/18 0958 Aspirin 81 Mg Tablet.dr, 81 MG PO DAILY, (Reported) C,E,Zinc,Copper 11/Xbsps2o/Lut 1 Each Capsule, 1 CAP PO DAILY, (Reported) Cetirizine HCl 10 Mg Tablet, 10 MG PO DAILY, (Reported) Cyanocobalamin (Vitamin B-12) 2,000 Mcg Tablet, 2,000 MCG PO DAILY, (Reported) Finasteride 5 Mg Tablet, 5 MG PO DAILY, (Reported) Glycopyrrolate/Formoterol Fum 10.7 Gm Hfa.aer.ad, 2 PUFF INH BID, (Reported) Guaifenesin/Codeine Phosphate 118 Ml Liquid, 5 ML PO Q4H PRN for COUGH, (Reported) Insulin Glargine,Hum.rec.anlog 100 Unit/1 Ml Vial, 80 UNITS SC HS, (Reported) Insulin Glargine,Hum.rec.anlog 100 Unit/1 Ml Vial, 40 UNIT SQ DAILY, (Reported) Insulin Lispro 100 Unit/1 Ml Vial, 30 UNITS SC TIDAC, (Reported) Losartan Potassium 100 Mg Tablet, 100 MG PO DAILY, (Reported) Meloxicam 7.5 Mg Tablet, 7.5 MG PO DAILY, (Reported) Metformin HCl 500 Mg Tablet, 500 MG PO DAILY, (Reported) Union 3 Polyunsat Fatty Acids 1,000 Mg Cap, 1,000 MG PO DAILY, (Reported) Omeprazole 20 Mg Capsule.dr, 20 MG PO DAILY, (Reported) Pioglitazone HCl 15 Mg Tablet, 15 MG PO DAILY, (Reported) Sertraline HCl 100 Mg Tablet, 100 MG PO DAILY, (Reported) Tamsulosin HCl 0.4 Mg Cap, 0.4 MG PO DAILY, (Reported) Patient Home Medication List Home Medication List Reviewed: Yes Review of Systems Review of Systems Constitutional: see HPI, chills, fever, malaise, weakness EENTM: see HPI Respiratory: no symptoms reported Gastrointestinal: abdominal pain Genitourinary: no symptoms reported Musculoskeletal: no symptoms reported Skin: no symptoms reported Psychiatric/Neurological: No Symptoms Reported Hematologic/Lymphatic: No Symptoms Reported Past Rftjsmd-Kuxoec-Eoifeb Hx Patient Social History Recent Foreign Travel: No Contact w/Someone Who Travel: No Recent Hopitalizations: Yes Immunizations Up To Date Date of Pneumonia Vaccine: Mar 28, 2017 Seasonal Allergies Seasonal Allergies: No Past Medical History Surgeries: Yes Orthopedic Respiratory: Yes Pneumonia, Pulmonary Embolism, COPD Cardiac: Yes High Cholesterol, Hypertension Neurological: No Sexually Transmitted Disease: No HIV/AIDS: No Genitourinary: Yes Benign Prostatic Hyperpl, Bladder Infection, Kidney Stones Abdominal Hernia, Diverticulosis Musculoskeletal: Yes Arthritis, Fractures Endocrine: Yes Diabetes, Insulin dep HEENT: Yes Cataract, Tinnitis Loss of Vision: Bilateral Hearing Impairment: Hard of Hearing Cancer: No Psychosocial: No Sleep Difficulties Integumentary: No Blood Disorders: No Adverse Reaction/Blood Tranf: No Physical Exam Vital Signs - First Documented 11/30/18 20:09 Temp 104.6 Pulse 112 Resp 26 B/P (MAP) 182/83 (116) Pulse Ox 90 O2 Delivery Room Air Capillary Refill : Height: 6'7.00" Weight: 355lbs. 0.0oz. 161.995052sp; 40.0 BMI Method: General Appearance: WD/WN, moderate distress, other (actively vomiting on arrival to ER. Temperature measured by us is 104.6, oxygen saturation 89% room air. Crackles left base.) Eyes: Bilateral Eye Normal Inspection, Bilateral Eye PERRL, Bilateral Eye EOMI HEENT: PERRL/EOMI, normal ENT inspection Respiratory: no respiratory distress, no accessory muscle use, crackles (left base) Cardiovascular: no murmur, tachycardia Gastrointestinal: normal bowel sounds, non tender, soft Neurologic/Psychiatric: alert, normal mood/affect, oriented x 3 Skin: normal color, warm/dry Focused Exam Lactate Level 11/30/18 20:18: Lactic Acid Level 2.44*H Lactic Acid Level Laboratory Tests Test 11/30/18 20:18 Lactic Acid Level 2.44 MMOL/L (0.50-2.00) *H Progress/Results/Core Measures Suspected Sepsis SIRS Temperature: Pulse: Respiratory Rate: Laboratory Tests 11/30/18 20:18: White Blood Count 7.4 Blood Pressure / Mean: 11/30/18 20:18: Lactic Acid Level 2.44*H Laboratory Tests 11/30/18 20:18: Creatinine 0.91, Platelet Count 160, Total Bilirubin 2.5H Results/Orders Lab Results Laboratory Tests Test 11/30/18 20:15 11/30/18 20:18 Range/Units Urine Color YELLOW Urine Clarity CLEAR Urine pH 6 5-9 Urine Specific [place] 1.020 1.016-1.022 Urine Protein 1+ H NEGATIVE Urine Glucose (UA) NEGATIVE NEGATIVE Urine Ketones NEGATIVE NEGATIVE Urine Nitrite NEGATIVE NEGATIVE Urine Bilirubin NEGATIVE NEGATIVE Urine Urobilinogen NORMAL NORMAL MG/DL Urine Leukocyte Esterase 2+ H NEGATIVE Urine RBC (Auto) 1+ H NEGATIVE Urine RBC 0-2 /HPF Urine WBC 5-10 H /HPF Urine Squamous Epithelial Cells 0-2 /HPF Urine Crystals NONE /LPF Urine Bacteria TRACE /HPF Urine Casts NONE /LPF Urine Mucus NEGATIVE /LPF Urine Culture Indicated YES White Blood Count 7.4 4.3-11.0 10^3/uL Red Blood Count 4.46 4.35-5.85 10^6/uL Hemoglobin 13.1 #L 13.3-17.7 G/DL Hematocrit 42 40-54 % Mean Corpuscular Volume 93 80-99 FL Mean Corpuscular Hemoglobin 29 25-34 PG Mean Corpuscular Hemoglobin Concent 32 32-36 G/DL Red Cell Distribution Width 18.1 H 10.0-14.5 % Platelet Count 160 130-400 10^3/uL Mean Platelet Volume 10.2 7.4-10.4 FL Neutrophils (%) (Auto) 93 H 42-75 % Lymphocytes (%) (Auto) 5 L 12-44 % Monocytes (%) (Auto) 1 0-12 % Eosinophils (%) (Auto) 1 0-10 % Basophils (%) (Auto) 0 0-10 % Neutrophils # (Auto) 6.9 1.8-7.8 X 10^3 Lymphocytes # (Auto) 0.4 L 1.0-4.0 X 10^3 Monocytes # (Auto) 0.1 0.0-1.0 X 10^3 Eosinophils # (Auto) 0.1 0.0-0.3 10^3/uL Basophils # (Auto) 0.0 0.0-0.1 10^3/uL Neutrophils % (Manual) 91 % Lymphocytes % (Manual) 4 % Monocytes % (Manual) 1 % Eosinophils % (Manual) 0 % Basophils % (Manual) 0 % Band Neutrophils 4 % Anisocytosis SLIGHT Sodium Level 136 135-145 MMOL/L Potassium Level 4.6 3.6-5.0 MMOL/L Chloride Level 103 98-107 MMOL/L Carbon Dioxide Level 20 L 21-32 MMOL/L Anion Gap 13 5-14 MMOL/L Blood Urea Nitrogen 13 7-18 MG/DL Creatinine 0.91 0.60-1.30 MG/DL Estimat Glomerular Filtration Rate > 60 BUN/Creatinine Ratio 14 Glucose Level 202 H 70-105 MG/DL Lactic Acid Level 2.44 *H 0.50-2.00 MMOL/L Calcium Level 9.5 8.5-10.1 MG/DL Corrected Calcium 9.3 8.5-10.1 MG/DL Total Bilirubin 2.5 H 0.1-1.0 MG/DL Aspartate Amino Transf (AST/SGOT) 28 5-34 U/L Alanine Aminotransferase (ALT/SGPT) 19 0-55 U/L Alkaline Phosphatase 175 H 40-136 U/L Total Protein 7.5 6.4-8.2 GM/DL Albumin 4.2 3.2-4.5 GM/DL My Orders Orders - ANIBAL MAYBERRY [employer] Cbc With Automated Diff (11/30/18 20:02) Comprehensive Metabolic Panel (11/30/18 20:02) Ua Culture If Indicated (11/30/18 20:02) Ed Iv/Invasive Line Start (11/30/18 20:02) Chest 1 View, Ap/Pa Only (11/30/18 20:02) Ct Silvia Chest/Noang Abd-Pelv W (11/30/18 20:02) Blood Culture (11/30/18 20:02) Lactic Acid Analyzer (11/30/18 20:02) Ondansetron Injection (Zofran Injectio (11/30/18 20:12) Iohexol Injection (Omnipaque 350 Mg/Ml 1 (11/30/18 20:30) Received Contrast (Hold Metformin- Contr (11/30/18 20:30) Ns (Ivpb) (Sodium Chloride 0.9% Ivpb Bag (11/30/18 20:30) Lactated Ringers (Lr 1000 Ml Iv Solution (11/30/18 20:30) Acetaminophen Tablet (Tylenol Tablet) (11/30/18 20:30) Ibuprofen Tablet (Motrin Tablet) (11/30/18 20:30) Ondansetron Injection (Zofran Injectio (11/30/18 20:30) Oxygen-Administer 07,19 (11/30/18 20:25) Manual Differential (11/30/18 20:18) Phenazopyridine Tablet (Pyridium Tablet) (11/30/18 21:00) Urine Culture (11/30/18 20:15) Piperacillin/Tazobactam (Bulk) (Zosyn In (11/30/18 21:00) Vancomycin Injection (Vancomycin Injecti (11/30/18 21:00) Promethazine Injection (Phenergan Injec (11/30/18 21:15) Promethazine Injection (Phenergan Injec (11/30/18 21:10) Vancomycin Injection (Vancomycin Injecti (11/30/18 21:16) Ns Iv 500 Ml (Sodium Chloride 0.9%) (11/30/18 21:16) Piperacillin Sodium/Tazobactam (Zosyn Vi (11/30/18 21:17) Medications Given in ED Current Medications Medications Dose Ordered Sig/Carolin Route Start Time Stop Time Status Last Admin Dose Admin Acetaminophen 1,000 mg ONCE ONCE PO 11/30/18 20:30 11/30/18 20:31 DC 11/30/18 20:37 1,000 MG Ibuprofen 800 mg ONCE ONCE PO 11/30/18 20:30 11/30/18 20:31 DC 11/30/18 20:36 800 MG Iohexol 150 ml ONCE ONCE IV 11/30/18 20:30 11/30/18 21:29 DC 11/30/18 21:47 150 ML Ondansetron HCl 8 mg ONCE ONCE IVP 11/30/18 20:30 11/30/18 20:31 DC 11/30/18 20:34 8 MG Phenazopyridine HCl 200 mg ONCE ONCE PO 11/30/18 21:00 11/30/18 21:01 DC 11/30/18 20:58 200 MG Piperacillin Sod/ Tazobactam Sod 4.5 gm/Sodium Chloride 120 ml @ 240 mls/hr ONCE ONCE IV 11/30/18 21:00 11/30/18 21:29 DC 11/30/18 21:56 240 MLS/HR Promethazine HCl 12.5 mg ONCE ONCE IVP 11/30/18 21:15 11/30/18 21:16 DC 11/30/18 21:15 12.5 MG Sodium Chloride 100 ml ONCE ONCE IV 11/30/18 20:30 11/30/18 21:29 DC 11/30/18 21:47 100 ML Vital Signs/I&O 11/30/18 11/30/18 20:09 20:36 Temp 104.6 104.6 Pulse 112 Resp 26 B/P (MAP) 182/83 (116) Pulse Ox 90 O2 Delivery Room Air Capillary Refill : Departure Communication (Admissions) Time/Spoke to Admitting Phy: 21:[address] Dorsey, we will admit. Labs are back. He received 1 L of fluids, 8 mg of Zofran IV, then 12.5 mg of Phenergan IV. Still awaiting CT scan results. He has had to urinate every few minutes and only goes a few drops every time. Pyridium ordered as well. NAME: ISELA YEE [facility] REC#: [id number] PT STATUS: REG ER : 1945 PHYSICIAN: ANIBAL MAYBERRY APRN ADMIT DATE: 11/30/18/ER Signed Date of Exam:11/30/18 CHEST 1 VIEW, AP/PA ONLY INDICATION: Nausea and vomiting Portable chest 9:28 PM Heart size and pulmonary vascularity are normal. Lungs are clear. There are no effusions or pneumothoraces. IMPRESSION: Negative chest Dictated by: Dictated on workstation # [id number] Dict: 11/30/182138 Trans: 11/30/182144 [facility] [id number] Interpreted by: CORNEL HALL MD Electronically signed by: CORNEL HALL MD 11/30/182144 Impression Primary Impression: UTI (urinary tract infection) Qualified Codes: N30.00 - Acute cystitis without hematuria Additional Impression: Sepsis Qualified Codes: A41.9 - Sepsis, unspecified organism Disposition: ADMITTED INPATIENT Condition: Stable Admissions Decision to Admit Reason: Admit from ER (General) Decision to Admit/Date: Nov 30, 2018 Time/Decision to Admit Time: 21:47 Departure-Patient Inst. Referrals: RAMEZ NGO DO (PCP/Family) Primary Care Physician ANIBAL MAYBERRY APRN Nov 30, 2018 20:30
[2018-11-30 20:31] LABS: BASOPHILS % (AUTO) 0 % (0-10); EOSINOPHILS # (AUTO) 0.1 10^3/uL (0.0-0.3); EOSINOPHILS % (AUTO) 1 % (0-10); HEMATOCRIT 42 % (40-54); HEMOGLOBIN 13.1 G/DL (13.3-17.7); LYMPHOCYTES # (AUTO) 0.4 X 10^3 (1.0-4.0); LYMPHOCYTES % (AUTO) 5 % (12-44); MEAN CORPUSCULAR HEMOGLOBIN 29 PG (25-34); MEAN CORPUSCULAR HGB CONC 32 G/DL (32-36); MEAN CORPUSCULAR VOLUME 93 FL (80-99); MEAN PLATELET VOLUME 10.2 FL (7.4-10.4); MONOCYTES # (AUTO) 0.1 X 10^3 (0.0-1.0); MONOCYTES % (AUTO) 1 % (0-12); NEUTROPHILS # (AUTO) 6.9 X 10^3 (1.8-7.8); NEUTROPHILS % (AUTO) 93 % (42-75); PLATELET COUNT 160 10^3/uL (130-400); RED CELL DISTRIBUTION WIDTH 18.1 % (10.0-14.5); WHITE BLOOD COUNT 7.4 10^3/uL (4.3-11.0)
[2018-11-30 20:31] LABS: BILIRUBIN,URINE NEGATIVE (NEGATIVE); CLARITY,URINE CLEAR; COLOR,URINE YELLOW; GLUCOSE, URINE (UA) NEGATIVE (NEGATIVE); KETONES,URINE NEGATIVE (NEGATIVE); LEUKOCYTE ESTERASE ,URINE 2+ (NEGATIVE); NITRITE,URINE NEGATIVE (NEGATIVE); PH,URINE 6 (5-9); PROTEIN,URINE 1+ (NEGATIVE); UROBILINOGEN,URINE NORMAL (NORMAL)
[2018-11-30 20:48] LABS: BUN/CREATININE RATIO 14; CARBON DIOXIDE 20 MMOL/L (21-32); CHLORIDE 103 MMOL/L (98-107); CREATININE SERUM 0.91 MG/DL (0.60-1.30); POTASSIUM 4.6 MMOL/L (3.6-5.0); SODIUM 136 MMOL/L (135-145)
[2018-11-30 20:49] LABS: ALANINE AMINOTRANSFERASE 19 U/L (0-55); ALBUMIN 4.2 GM/DL (3.2-4.5); ALKALINE PHOSPHATASE 175 U/L (40-136); BILIRUBIN,TOTAL 2.5 MG/DL (0.1-1.0); CALCIUM 9.5 MG/DL (8.5-10.1); GFR ESTIMATED > 60; GLUCOSE 202 MG/DL (70-105); TOTAL PROTEIN 7.5 GM/DL (6.4-8.2)
[2018-11-30 20:53] LABS: RBC,URINE 0-2 /HPF
[2018-11-30 20:54] LABS: BACTERIA,URINE TRACE /HPF; SQUAMOUS EPITHELIAL CELL,UR 0-2 /HPF
[2018-11-30] MEDS ORDERED: VANCOMYCIN INJECTION 2,000 MG in NS IV 500 ML 500 ML IV SCH (21:00)
[2018-11-30] MEDS ORDERED: PIPERACILLIN/TAZOBACTAM (BULK) 4.5 GM in NS (IVPB) 100 ML IV ONE (21:00)
[2018-11-30] MEDS ORDERED: PHENAZOPYRIDINE 100 MG (PYRIDIUM) TABLET PO ONE (21:00)
[2018-11-30] MEDS ORDERED: PROMETHAZINE INJ 25 MG/ML (PHENERGAN) AMP ONE (21:10)
[2018-11-30] MEDS ORDERED: PROMETHAZINE INJ 25 MG/ML (PHENERGAN) AMP IVP ONE (21:15)
[2018-11-30] MEDS ORDERED: VANCOMYCIN 1000 MG/VIAL ONE (21:16)
[2018-11-30] MEDS ORDERED: NS IV 500 ML 500 ML ONE (21:16)
[2018-11-30] MEDS ORDERED: PIPERACILLIN/TAZO 4.5 GM VIAL (ZOSYN) IV ONE (21:17)
[2018-11-30 21:24] LABS: BAND NEUTROPHILS 4 %; BASOPHILS % (MANUAL) 0 %; EOSINOPHILS % (MANUAL) 0 %; LYMPHOCYTES % (MANUAL) 4 %; MONOCYTES % (MANUAL) 1 %; NEUTROPHILS % (MANUAL) 91 %
[2018-11-30 21:25] LABS: ANISOCYTOSIS SLIGHT
--- NOTE | 2018-11-30 21:43 | Diagnostic Imaging Report ---
INDICATION: Nausea and vomiting Portable chest 9:28 PM Heart size and pulmonary vascularity are normal. Lungs are clear. There are no effusions or pneumothoraces. IMPRESSION: Negative chest Dictated by: Dictated on workstation # [id number]
--- NOTE | 2018-11-30 21:57 | Diagnostic Imaging Report ---
INDICATION: Vomiting and fever EXAM: CTA chest, CT abdomen and pelvis with IV contrast. TECHNIQUE: Thin axial sections through the chest, abdomen and pelvis were obtained after IV contrast enhancement. Multiplanar MIP images of the chest were reconstructed and reviewed. CTA CHEST: There is a 1.5 x 2.5 cm mass in the right upper lobe adjacent to the posterior mediastinum suspicious for neoplasm. The lungs are otherwise clear. There are no effusions or pneumothoraces. The aorta appears normal. There are no pulmonary emboli. IMPRESSION: Right upper lobe mass suspicious for neoplasm. CT ABDOMEN AND PELVIS: The liver is enlarged. There are stones in the gallbladder. The spleen is enlarged. The abdominal aorta appears normal. The adrenals are unremarkable. There is a cyst in the inferior pole of the right kidney that measures 3.7 cm in diameter. There is an IVC filter in place. The abdominal aorta appears normal. There is a moderate amount of stool in the colon. The small bowel is not dilated. The prostate is enlarged. The urinary bladder is not distended. There is no intraperitoneal free air or free fluid. IMPRESSION: Hepatosplenomegaly. Cholecystolithiasis. Enlarged prostate. Dictated by: Dictated on workstation # [id number]
--- OUTSIDE RECORDS SUMMARY | 2018-11-30 22:10 | XMS REPORT | Continuity of Care Document ---
[...] 5 MEDIA PLATED Setup at 21:56 on 10/14/[id number] [employer] Media Position C48 CULTURE SOURCE drawn @ Right AC Blood Culture - 10/14/18 21:40 PRELIM CULTURE RESULTS Blood Culture Negative, No Growth Day 1 MEDIA PLATED Setup at 21:56 on 10/14/[id number] Culture Media Position C48 CULTURE SOURCE drawn [...] 5-8.5 Urine-Protein Negative Negative Urine-RBC 0-2/HPF Urine-Specific [place] 1.015 1.000-1.030 Urine-WBC TNTC Urobilinogen 2.0 0.2-1.0 [...] 5 MEDIA PLATED Setup at 22:12 on 10/14/[id number] [employer] Position C44 CULTURE SOURCE drawn @ Left AC Blood Culture - 10/14/18 21:45 PRELIM CULTURE RESULTS Blood Culture Negative, No Growth Day 1 MEDIA PLATED Setup at 22:12 on 10/14/[id number] [employer] Position C44 CULTURE SOURCE drawn [...] Status Pt. Type Provider Facility Loc./Unit Complaint [id number] 10/15/2018 06:42:00 10/18/2018 12:50:00 DIS Inpatient Raven Da Silva [facility] MED-SURG [id number] 09/20/2018 09:41:00 09/20/2018 23:59:00 DIS Outpatient Raven Da Silva [id number] 06/14/2018 09:11:00 06/14/2018 23:59:00 DIS Outpatient Raven Da Silva [id number] 04/06/2018 13:54:00 04/29/2018 07:17:00 DIS Outpatient DANNIELLE ELLIS [id number] 10/14/2018 22:00:01 Document Registration [id number] 05/05/2018 08:42:00 Document Registration [id number] 04/20/2018 16:30:10 04/20/2018 23:59:59 CLS Outpatient Demarco Ford [id number] 04/08/2018 15:12:57 04/08/2018 23:59:59 CLS Outpatient Wan Beyer [id number] 03/02/2018 10:11:23 03/02/2018 23:59:59 CLS Outpatient Nanda Herman [id number] 07/15/2015 12:54:32 07/15/2015 23:59:59 CLS Outpatient Demarco Ford [id number] 06/11/2015 16:45:49 06/11/2015 23:59:59 CLS Outpatient Hedy Sanchez [id number] 02/11/2015 15:59:10 02/11/2015 23:59:59 CLS Outpatient Demarco Ford [id number] 10/14/2018 21:02:00 Document Registration
[2018-11-30 22:45] VITALS: BP 106/47
--- NOTE | 2018-11-30 22:45 | NUR ---
ISELA JOSELITO admitted to room CU3-1, with an admitting diagnosis of UTI, SEPSIS , on 11/30/18 from ER via STRETCHER, accompanied by HOSPITAL STAFF. ISELA YEE introduced to surroundings, call light, bed controls, phone, TV, temperature control, lights, meal times, smoking policy, visitor policy, side rail policy, bathrooms and showers. Patient Rights given to patient in the handbook.ISELA YEE verbalizes understanding that [facility] is not responsible for the loss or damage to any personal effects or valuables that are kept in the patients posession during their hospitalization. ISELA YEE verbalizes understanding of Interdisciplinary Patient Education. Patient and/or family were informed about the Rapid Response Team and its purpose.
[2018-11-30 23:15] VITALS: BP 122/54
[2018-11-30 23:30] VITALS: BP 108/71
[2018-11-30 23:45] VITALS: BP 125/64
[2018-11-30] MEDS ORDERED: PROMETHAZINE INJ 25 MG/ML (PHENERGAN) AMP IV PRN (23:45)
--- NOTE | 2018-11-30 23:45 | NUR ---
RECEIVED CALL FROM DR. NGO. INFORMED HER OF PATIENT'S VITAL SIGNS. HR-90'S, BP-106/58. ALSO INFORMED HER THAT PATIENT HAS RECEIVED VANCO AND ZOSYN AND ONE LITER LR BOLUS IN ER AND HAS LR RUNNING AT 150ML/HR NOW. INQUIRED ABOUT ADDITIONAL BOLUS. NO NEW ORDERS FOR BOLUS AT THIS TIME D/T PATIENT'S HX OF ELEVATED BNP.
[2018-11-30] MEDS: LACTATED RINGERS 1,000 ML IV SCH (23:50)
[2018-12-01] VITALS: BP 128/65
--- NOTE | 2018-12-01 02:00 | NUR ---
ASKED PATIENT MULTIPLE TIMES ABOUT PLACING TURCIOS CATH. PATIENT EDUCATED REGARDING IMPORTANCE OF ACCURATE I/O MONITORING. PATIENT CONTINUES TO REFUSE TURCIOS CATH. INSERTION.
[2018-12-01 03:33] LABS: BASOPHILS % (AUTO) 0 % (0-10); EOSINOPHILS % (AUTO) 0 % (0-10); HEMATOCRIT 38 % (40-54); HEMOGLOBIN 11.9 G/DL (13.3-17.7); LYMPHOCYTES # (AUTO) 0.7 X 10^3 (1.0-4.0); LYMPHOCYTES % (AUTO) 4 % (12-44); MEAN CORPUSCULAR HEMOGLOBIN 29 PG (25-34); MEAN CORPUSCULAR HGB CONC 31 G/DL (32-36); MEAN CORPUSCULAR VOLUME 95 FL (80-99); MEAN PLATELET VOLUME 10.7 FL (7.4-10.4); MONOCYTES # (AUTO) 0.8 X 10^3 (0.0-1.0); MONOCYTES % (AUTO) 5 % (0-12); NEUTROPHILS # (AUTO) 14.2 X 10^3 (1.8-7.8); NEUTROPHILS % (AUTO) 90 % (42-75); PLATELET COUNT 117 10^3/uL (130-400); RED CELL DISTRIBUTION WIDTH 17.8 % (10.0-14.5); WHITE BLOOD COUNT 15.7 10^3/uL (4.3-11.0)
[2018-12-01 03:48] LABS: ALANINE AMINOTRANSFERASE 17 U/L (0-55); ALBUMIN 3.5 GM/DL (3.2-4.5); ALKALINE PHOSPHATASE 143 U/L (40-136); BILIRUBIN,TOTAL 1.7 MG/DL (0.1-1.0); BUN/CREATININE RATIO 13; CALCIUM 8.7 MG/DL (8.5-10.1); CARBON DIOXIDE 23 MMOL/L (21-32); CHLORIDE 105 MMOL/L (98-107); CREATININE SERUM 1.04 MG/DL (0.60-1.30); GFR ESTIMATED > 60; GLUCOSE 218 MG/DL (70-105); SODIUM 138 MMOL/L (135-145); TOTAL PROTEIN 6.1 GM/DL (6.4-8.2)
[2018-12-01 04:00] VITALS: BP 97/64
[2018-12-01] MEDS ORDERED: PIPERACILLIN/TAZO 4.5 GM VIAL (ZOSYN) IV ONE (05:23)
[2018-12-01] MEDS ORDERED: NS (IVPB) 100 ML ONE (05:24)
[2018-12-01] MEDS: PIPERACILLIN/TAZO 4.5 GM/NS 100 ML IV SCH ×4 (05:39→13:53)
--- NOTE | 2018-12-01 06:38 | Pulmonary Consultation ---
History of Present Illness History of Present Illness Date of Consultation 12/01/18 06:37 Time Seen by Provider: 10:01 Date of Admission History of Present Illness 73yo who was recently in hospital secondary to RLL pneumonia and atelectasis and UTI presented to ED secondary to worsening symptoms of fever NS, Chills, N/V. PT grew out enterococcus and was placed on Augmentin. TM has been 103. I am consulted for pulmonary/CC management. Allergies and Home Medications Allergies Coded Allergies: No Known Drug Allergies (Unverified , 11/26/18) Home Medications Albuterol Sulfate 1 Puff Puff, 2 PUFF INH Q4H PRN for SHORTNESS OF BREATH, (Reported) Amoxicillin/Potassium Clav 1 Each Tablet, 1 TAB PO BID, (Reported) 3 DAY SUPPLY FILLED 11-29-18 Aspirin 81 Mg Tablet.dr, 81 MG PO DAILY, (Reported) C,E,Zinc,Copper 11/Pprvj9w/Lut 1 Each Capsule, 1 CAP PO DAILY, (Reported) Cetirizine HCl 10 Mg Tablet, 10 MG PO DAILY, (Reported) Clotrimazole/Betamethasone Dip 15 Gm Cream..g., 0 GM TP BID Prescribed by: RAMEZ NGO on 12/03/18 1137 Cyanocobalamin (Vitamin B-12) 2,000 Mcg Tablet, 2,000 MCG PO DAILY, (Reported) Finasteride 5 Mg Tablet, 5 MG PO DAILY, (Reported) Glycopyrrolate/Formoterol Fum 10.7 Gm Hfa.aer.ad, 2 PUFF INH BID, (Reported) Guaifenesin/Codeine Phosphate 118 Ml Liquid, 5 ML PO Q4H PRN for COUGH, (Reported) Insulin Glargine,Hum.rec.anlog 100 Unit/1 Ml Vial, 80 UNITS SC HS, (Reported) Insulin Glargine,Hum.rec.anlog 100 Unit/1 Ml Vial, 40 UNIT SQ DAILY, (Reported) Insulin Lispro 100 Unit/1 Ml Vial, 30 UNITS SC TIDAC, (Reported) Levofloxacin 500 Mg Tablet, 500 MG PO DAILY@11 Prescribed by: RAMEZ NGO on 12/03/18 1137 Losartan Potassium 100 Mg Tablet, 100 MG PO DAILY, (Reported) Meloxicam 7.5 Mg Tablet, 7.5 MG PO DAILY, (Reported) Metformin HCl 500 Mg Tablet, 500 MG PO DAILY, (Reported) Echo 3 Polyunsat Fatty Acids 1,000 Mg Cap, 1,000 MG PO DAILY, (Reported) Omeprazole 20 Mg Capsule.dr, 20 MG PO DAILY, (Reported) Pioglitazone HCl 15 Mg Tablet, 15 MG PO DAILY, (Reported) Sertraline HCl 100 Mg Tablet, 100 MG PO DAILY, (Reported) Silver Sulfadiazine 20 Gm Cream..g., 0 GM TOP DAILY Prescribed by: RAMEZ NGO on 12/03/18 1137 Tamsulosin HCl 0.4 Mg Cap, 0.4 MG PO DAILY, (Reported) Past Aovdhxu-Agxsnl-Twsgju Hx Patient Social History Alcohol Use: Denies Use Recreational Drug Use: No Smoking Status: Former Smoker 2nd Hand Smoke Exposure: No Recent Foreign Travel: No Contact w/Someone Who Travel: No Recent Infectious Disease Expo: No Recent Hopitalizations: Yes Immunizations Up To Date PED Vaccines UTD: Yes Date of Pneumonia Vaccine: Mar 28, 2017 Seasonal Allergies Seasonal Allergies: No Past Medical History Surgeries: Yes Orthopedic Respiratory: Yes Pneumonia, Pulmonary Embolism, COPD Cardiac: Yes High Cholesterol, Hypertension Neurological: No Sexually Transmitted Disease: No HIV/AIDS: No Genitourinary: Yes Benign Prostatic Hyperpl, Bladder Infection, Kidney Stones Abdominal Hernia, Diverticulosis Musculoskeletal: Yes Arthritis, Fractures Endocrine: Yes Diabetes, Insulin dep HEENT: Yes Cataract, Tinnitis Loss of Vision: Bilateral Hearing Impairment: Hard of Hearing Cancer: No Psychosocial: No Sleep Difficulties Integumentary: No Blood Disorders: No Adverse Reaction/Blood Tranf: No Family Medical History Patient reports no known family medical history. Review of Systems Time Seen by Provider: 10:01 Constitutional: Fever, Chills, Sweats, Weakness, Malaise, Other Eyes: No: Pain, Vision change, Conjunctivae inflammation, Eyelid inflammation, Other, Redness ENT: Nose congestion; No: Ear pain, Ear discharge, Nose pain, Nose discharge, Mouth pain, Mouth swelling, Throat pain, Throat swelling, Other Respiratory: Cough, Shortness of breath, SOB with excertion, Wheezing; No: Hemoptysis Cardiovascular: Paroxysmal Noc. Dyspnea; No: Chest Pain, Palpitations, Orthopnea, Edema, Lt Headedness, Other Gastrointestinal: Nausea, Vomiting, Constipation; No: Abdominal Pain, Diarrhea, Melena, Hematochezia, Other Genitourinary: Dysuria, Frequency Sepsis Event Evaluation Height, Weight, BMI Height: 6'7.00" Weight: 380lbs. 0.0oz. 172.900171fm; 42.8 BMI Method:Actual Exam Exam Vital Signs Date Time Temp Pulse Resp B/P (MAP) Pulse Ox O2 Delivery O2 Flow Rate FiO2 12/01/18 04:00 96.9 12/01/18 04:00 96.9 12/01/18 04:00 93 Nasal Cannula 2.00 12/01/18 04:00 97/64 (75) 98 Room Air 12/01/18 01:00 98.3 12/01/18 01:00 122 12/01/18 01:00 98.3 12/01/18 00:00 99.5 12/01/18 00:00 93 Nasal Cannula 2.00 12/01/18 00:00 91 128/65 (86) 94 Room Air 12/01/18 00:00 99.5 11/30/18 23:45 94 125/64 (84) 93 Room Air 11/30/18 23:30 97 108/71 (83) 97 Room Air 11/30/18 23:15 100 122/54 (76) 94 Room Air 11/30/18 23:05 109 11/30/18 22:45 100.0 11/30/18 22:45 100.0 102 23 106/47 (66) 94 Nasal Cannula 2.00 11/30/18 22:45 93 Nasal Cannula 2.00 11/30/18 22:31 102.0 105 20 127/61 (83) 93 Nasal Cannula 2.00 11/30/18 20:36 104.6 11/30/18 20:09 104.6 112 26 182/83 (116) 90 Room Air I & O 12/01/18 07:00 Intake Total 1200 ml Output Total 720 ml Balance 480 ml Height & Weight Height: 6'7.00" Weight: 380lbs. 0.0oz. 172.911762kt; 42.8 BMI Method:Actual General Appearance: Anxious, Mild Distress, Obese HEENT: PERRL/EOMI, Normal ENT Inspection, Pharynx Normal Neck: Full Range of Motion, Supple Respiratory: Chest Non Tender, No Accessory Muscle Use, No Respiratory Distress, Decreased Breath Sounds Cardiovascular: Regular Rate, Rhythm, No Edema Capillary Refill: Less Than 3 Seconds Gastrointestinal: normal bowel sounds, non tender, soft Extremity: Normal Capillary Refill, No Pedal Edema Neurologic/Psychiatric: Alert, Oriented x3 Skin: Normal Color, Warm/Dry Results Lab Laboratory Tests 11/30/18 20:18 12/01/18 03:00 Assessment/Plan Assessment/Plan UTI with sepsis -Vanco and Zosyn -Diaz cultured Metabolic lactic acidosis -IVF Lung mass hx of lobectomy -Will need PET scan and possible CT bx of lung DM -restart home insulin MICHELLE AMADO DO Dec 01, 2018 06:38
[2018-12-01 08:00] VITALS: BP_SYST 101; BP_SYST 128; BP_DIAS 63; BP_DIAS 69
[2018-12-01] MEDS ORDERED: VANCOMYCIN 1 GM/NS 250 ML IVPB IV SCH ×2 (11:00)
--- NOTE | 2018-12-01 11:55 | History & Physical-Hospitalist ---
History of Present Illness HPI/Chief Complaint Chief complaint: Fever with chills HPI: This is a 73[facility]WM clinic Pt of mine that I just discharged the day before after a short hospital course for right lower lobe early pneumonia atelectasis in addition to UTI that ended up culture less than 10,000 enterococcus so he was placed on Augmentin and overall he was maintained compliance with those antibiotics but while visiting his who is inpatient rehab he began having fever and chills and temperature went up to 103, having nausea and vomiting he was sent up to the ER found to have sepsis. Pt was given aggressive IV fluids and empiric antibiotics of Zosyn and Vancomycin and close monitoring by Dr. Coleman, Dr. Curiel and Dr. Liu. He never had any bladder infections before but this seems to be a urological issue that will be addressed by Dr. Liu. Source: patient, RN/MD, old records Exam Limitations: no limitations Date Seen 12/01/18 Time Seen by a Provider: 10:00 Attending Physician Jl Dorsey MD PCP Raven Ngo DO Referring Physician Date of Admission Nov 30, 2018 at 21:44 Home Medications & Allergies Home Medications Reviewed patient Home Medication Reconciliation performed by pharmacy medication reconciliations rf technician and/or nursing. Patients Allergies have been reviewed. 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) Alcohol Use: Denies Use Recreational Drug Use: No Smoking Status: Former Smoker 2nd Hand Smoke Exposure: No Physical Abuse Screen: No Sexual Abuse: No Recent Foreign Travel: No Contact w/other who traveled: No Recent Hopitalizations: Yes Recent Infectious Disease Expo: No Immunizations Up To Date Pediatric: Yes Date of Pneumonia Vaccine: Mar 28, 2017 Seasonal Allergies Seasonal Allergies: No Past Medical History Surgeries: Orthopedic Respiratory: COPD, Sleep Apnea Cardiac: High Cholesterol, Hypertension Sexually Transmitted Disease: No HIV/AIDS: No Genitourinary: Benign Prostatic Hyperpl, Bladder Infection, Kidney Stones Gastrointestinal: Abdominal Hernia, Diverticulosis Musculoskeletal: Arthritis, Fractures Endocrine: Diabetes, Insulin dep HEENT: Cataract, Tinnitis Loss of Vision: Bilateral Hearing Impairment: Hard of Hearing Psychosocial: Sleep Difficulties History of Blood Disorders: No Adverse Reaction to Blood Archer: No Family History Patient reports no known family medical history. Review of Systems Constitutional: see HPI, chills, diaphoresis, dizziness, fever, malaise, weakness EENTM: no symptoms reported Respiratory: no symptoms reported Cardiovascular: no symptoms reported Gastrointestinal: no symptoms reported Genitourinary: no symptoms reported Musculoskeletal: no symptoms reported Skin: no symptoms reported Psychiatric/Neurological: No Symptoms Reported All Other Systems Reviewed Negative Unless Noted: Yes Physical Exam Physical Exam Vital Signs Vital Signs - First Documented 11/30/18 11/30/18 20:09 22:31 Temp 104.6 Pulse 112 Resp 26 B/P (MAP) 182/83 (116) Pulse Ox 90 O2 Delivery Room Air O2 Flow Rate 2.00 Capillary Refill : Less Than 3 Seconds Height, Weight, BMI Height: 6'7.00" Weight: 380lbs. 0.0oz. 172.167623za; 42.8 BMI Method:Actual General Appearance: No Apparent Distress, WD/WN, Chronically ill, Obese Eyes: Right Eye Normal Inspection, Right Eye PERRL HEENT: PERRL/EOMI, Normal ENT Inspection, Pharynx Normal, Moist Mucous Membranes Neck: Full Range of Motion, Normal Inspection, Non Tender Respiratory: Chest Non Tender, Lungs Clear, Normal Breath Sounds, No Accessory Muscle Use, No Respiratory Distress Cardiovascular: Regular Rate, Rhythm, No Edema, No Gallop, No JVD, No Murmur, Normal Peripheral Pulses Gastrointestinal: Normal Bowel Sounds, No Organomegaly, No Pulsatile Mass, Non Tender, Soft Back: Normal Inspection, No CVA Tenderness, No Vertebral Tenderness Extremity: Normal Capillary Refill, Normal Inspection, Normal Range of Motion, Non Tender, No Calf Tenderness, No Pedal Edema Neurologic/Psychiatric: Alert, Oriented x3, No Motor/Sensory Deficits, Normal Mood/Affect Skin: Normal Color, Warm/Dry Lymphatic: No Adenopathy Results Results/Procedures Labs Laboratory Tests 11/30/18 20:18 12/01/18 03:00 Patient resulted labs reviewed. Assessment/Plan Admission Diagnosis Assessment: Sepsis UTI? Prostatitis? Enlarged prostate on CT scan COPD Left lung nodule DM HTN HLP JULIAN BPH Plan: Monitor closely IV abx Levaquin Conferred with Dr Liu and I appreciate his help and Dr Coleman Admission Status: Inpatient Order (span 2 midnights) Reason for Inpatient Admission: Sepsis with recurrent FUO Diagnosis/Problems Diagnosis/Problems (1) Prostatitis, acute Status: Acute (2) UTI (urinary tract infection) Status: Acute Qualifiers: Urinary tract infection type: acute cystitis Hematuria presence: without hematuria Qualified Codes: N30.00 - Acute cystitis without hematuria (3) Sepsis Status: Acute Qualifiers: Sepsis type: sepsis due to unspecified organism Qualified Codes: A41.9 - Sepsis, unspecified organism (4) Diabetes mellitus, insulin dependent (IDDM), controlled Status: Chronic (5) JULIAN on CPAP Status: Chronic (6) COPD with exacerbation Status: Chronic (7) Hypertension Status: Chronic Qualifiers: Hypertension type: essential hypertension Qualified Codes: I10 - Essential (primary) hypertension (8) GERD (gastroesophageal reflux disease) Status: Chronic Qualifiers: Esophagitis presence: without esophagitis Qualified Codes: K21.9 - Gastro- esophageal reflux disease without esophagitis (9) Vitamin B 12 deficiency Status: Chronic (10) Osteoarthritis Status: Chronic Qualifiers: Osteoarthritis location: unspecified site Osteoarthritis type: unspecified Qualified Codes: M19.90 - Unspecified osteoarthritis, unspecified site (11) Hyperlipidemia Status: Chronic Qualifiers: Hyperlipidemia type: mixed hyperlipidemia Qualified Codes: E78.2 - Mixed hyperlipidemia (12) Fever Status: Acute Qualifiers: Fever type: unspecified Qualified Codes: R50.9 - Fever, unspecified Clinical Quality Measures DVT/VTE Risk/Contraindication: Risk Factor Score Per Nursin RFS Level Per Nursing on Admit: 4+=Very High RAVEN NGO DO Dec 01, 2018 11:55
[2018-12-01 12:00] VITALS: BP_SYST 103; BP_SYST 128; BP_DIAS 63; BP_DIAS 75
[2018-12-01] MEDS ORDERED: AMOX1TAB12 PO (12:36)
--- NOTE | 2018-12-01 12:38 | NUR ---
PATIENT WAS RECENTLY DISCHARGED AND MED REC WAS DONE AT THAT TIME. HE STATES NOTHING HAS CHANGED, HE HAS BEEN FOLLOWING HIS DISCHARGE ORDERS.
[2018-12-01] MEDS ORDERED: VANCOMYCIN 750 MG/NS 250 ML IVPB IV NR ×2 (14:03)
--- NOTE | 2018-12-01 14:08 | CONSULTATION REPORT ---
DATE OF SERVICE: 12/01/2018 SUMMARY: The patient just recently dismissed with UTI, successfully treated with IV antibiotics, put on Augmentin, readmitted with urosepsis, high fever and lactic acid increase and leukocytosis. CT scan showed enlargement of the prostate, but no bladder residual. No masses. A cyst in the kidney. His blood culture show no growth. The urine culture that he had showed sensitive to Levaquin. IMPRESSION: Urosepsis, possible prostatitis. PLAN: We would use Levaquin 500 mg IV every 24 hours, which is more specific for prostatitis at this point. Hold off on the Augmentin and if later on need to dismiss him on p.o. antibiotic, use Levaquin p.o. Thank you for letting me participate in the care of this patient. We will follow with you. Job ID: [id number] DocumentID: [id number] Dictated Date: 12/01/2018 12:29:27 Business Solutions Architect Date: 12/01/2018 14:07:47 Dictated By: FAISAL HUYNH MD
[2018-12-01] MEDS: LACTATED RINGERS 1,000 ML IV SCH (15:41)
[2018-12-01] MEDS: inSUlin ASPART (NovoLOG) 1 UNIT/0.01 ML (CHARGE PER UNIT) SC SCH (15:41)
[2018-12-01 16:00] VITALS: BP 105/65
[2018-12-01] MEDS ORDERED: guaiFENesin/CODEINE (ROBITUSSIN AC) 10ML UDC PO PRN (17:00)
[2018-12-01] MEDS: ENOXAPARIN 40 MG/0.4 ML (LOVENOX) SYR SC SCH (19:46)
[2018-12-01] MEDS: LEVOFLOXACIN 500 MG/100 ML IV 100 ML IV SCH (19:48)
[2018-12-01] MEDS: ACETAMINOPHEN 325 MG TABLET PO PRN (19:49)
[2018-12-01] MEDS: SILVER SULFADIAZINE 50 GM CREAM TOP SCH (19:50)
[2018-12-01] MEDS ORDERED: NON-FORMULARY MEDICATION 1 EA EA (Glycopyrrolate/Formoterol Fum (Bevespi Aerosphere Inhale INH SCH (21:00)
--- NOTE | 2018-12-01 21:10 | NUR ---
Dr Da Silva notified of FSBS of 75 mg /dl and insulin orders for 2 doses of levermir. order to hold isandrew quigley and she would clarify in am.
[2018-12-02] VITALS (8 sets, daily range): BP systolic 113–141; BP diastolic 55–72
[2018-12-02] MEDS: IBUPROFEN 600 MG (MOTRIN) TAB PO PRN (00:32)
[2018-12-02] MEDS ORDERED: VANCOMYCIN 1,750 MG/NS 500 ML IVPB IV SCH ×2 (02:00)
[2018-12-02 03:21] LABS: BASOPHILS % (AUTO) 0 % (0-10); EOSINOPHILS # (AUTO) 0.1 10^3/uL (0.0-0.3); EOSINOPHILS % (AUTO) 1 % (0-10); HEMATOCRIT 35 % (40-54); HEMOGLOBIN 10.9 G/DL (13.3-17.7); LYMPHOCYTES # (AUTO) 0.9 X 10^3 (1.0-4.0); LYMPHOCYTES % (AUTO) 9 % (12-44); MEAN CORPUSCULAR HEMOGLOBIN 29 PG (25-34); MEAN CORPUSCULAR HGB CONC 31 G/DL (32-36); MEAN CORPUSCULAR VOLUME 94 FL (80-99); MEAN PLATELET VOLUME 10.4 FL (7.4-10.4); MONOCYTES % (AUTO) 10 % (0-12); NEUTROPHILS # (AUTO) 8.6 X 10^3 (1.8-7.8); NEUTROPHILS % (AUTO) 81 % (42-75); PLATELET COUNT 118 10^3/uL (130-400); RED CELL DISTRIBUTION WIDTH 17.8 % (10.0-14.5); WHITE BLOOD COUNT 10.6 10^3/uL (4.3-11.0)
[2018-12-02 03:42] LABS: BUN/CREATININE RATIO 17; CARBON DIOXIDE 25 MMOL/L (21-32); CHLORIDE 105 MMOL/L (98-107); CREATININE SERUM 0.92 MG/DL (0.60-1.30); POTASSIUM 3.8 MMOL/L (3.6-5.0); SODIUM 139 MMOL/L (135-145)
[2018-12-02 03:43] LABS: ALANINE AMINOTRANSFERASE 15 U/L (0-55); ALBUMIN 3.3 GM/DL (3.2-4.5); ALKALINE PHOSPHATASE 112 U/L (40-136); BILIRUBIN,TOTAL 1.6 MG/DL (0.1-1.0); CALCIUM 8.5 MG/DL (8.5-10.1); GFR ESTIMATED > 60; GLUCOSE 137 MG/DL (70-105); TOTAL PROTEIN 5.7 GM/DL (6.4-8.2)
--- NOTE | 2018-12-02 05:47 | Pulmonary Progress Note ---
Subjective Time Seen by a Provider: 05:49 Subjective/Events-last exam Pt appears improved. Sepsis Event Evaluation Height, Weight, BMI Height: 6'7.00" Weight: 380lbs. 0.0oz. 172.696566hr; 42.8 BMI Method:Actual Focused Exam Lactate Level 11/30/18 20:18: Lactic Acid Level 2.44*H 11/30/18 23:30: Lactic Acid Level 0.93 Exam Exam Vital Signs Date Time Temp Pulse Resp B/P (MAP) Pulse Ox O2 Delivery O2 Flow Rate FiO2 12/02/18 04:00 72 17 113/59 (77) 96 Nasal Cannula 2.00 12/02/18 04:00 Nasal Cannula 2.00 12/02/18 04:00 97.8 12/02/18 02:00 98.2 12/02/18 01:15 100.9 12/02/18 01:14 100 12/02/18 00:32 102.4 12/02/18 00:15 102.4 105 20 122/55 (77) 93 Nasal Cannula 2.00 12/02/18 00:00 107 122/55 (77) 87 Nasal Cannula 2.00 12/02/18 00:00 Nasal Cannula 2.00 12/01/18 20:45 93 Nasal Cannula 2.00 12/01/18 20:45 98 Nasal Cannula 2.00 12/01/18 20:00 98.7 12/01/18 19:49 99.1 12/01/18 19:00 80 12/01/18 16:30 Nasal Cannula 2.00 12/01/18 16:00 97.2 12/01/18 16:00 119 24 105/65 (78) 98 Nasal Cannula 2.00 12/01/18 16:00 97.2 12/01/18 13:00 83 12/01/18 12:00 97.6 12/01/18 12:00 94 23 103/63 (76) 98 Room Air 12/01/18 12:00 94 23 103/63 (76) 98 Nasal Cannula 2.00 12/01/18 11:55 Nasal Cannula 2.00 12/01/18 09:10 Nasal Cannula 2.00 12/01/18 08:00 89 128/69 (88) 100 Room Air 12/01/18 07:45 Nasal Cannula 2.00 12/01/18 07:00 116 I & O 12/02/18 07:00 Intake Total 2350 ml Output Total 900 ml Balance 1450 ml Height & Weight Height: 6'7.00" Weight: 380lbs. 0.0oz. 172.979548kf; 42.8 BMI Method:Actual General Appearance: No Apparent Distress, WD/WN, Chronically ill, Obese HEENT: PERRL/EOMI, Normal ENT Inspection, Pharynx Normal, Moist Mucous Membranes Neck: Full Range of Motion, Normal Inspection, Non Tender Respiratory: Chest Non Tender, Lungs Clear, Normal Breath Sounds, No Accessory Muscle Use, No Respiratory Distress Cardiovascular: Regular Rate, Rhythm, No Edema, No Gallop, No JVD, No Murmur, Normal Peripheral Pulses Capillary Refill: Less Than 3 Seconds Gastrointestinal: normal bowel sounds, non tender, soft Extremity: Normal Capillary Refill, Normal Inspection, Normal Range of Motion, Non Tender, No Calf Tenderness, No Pedal Edema Neurologic/Psychiatric: Alert, Oriented x3, No Motor/Sensory Deficits, Normal Mood/Affect Skin: Normal Color, Warm/Dry Lymphatic: No Adenopathy Results Lab Laboratory Tests 11/30/18 20:18 12/01/18 03:00 12/02/18 03:15 Assessment/Plan Assessment/Plan UTI with sepsis -Pt is on Levaquin -Diaz cultured Metabolic lactic acidosis -IVF Lung mass -PET scan as out patient with probable bronchoscopy DM -restart home insulin MICHELLE AMADO DO Dec 02, 2018 05:47
[2018-12-02] MEDS: ENOXAPARIN 40 MG/0.4 ML (LOVENOX) SYR SC SCH ×2 (06:52→18:18)
[2018-12-02] MEDS: CYANOCOBALAMIN 1,000 MCG (VITAMIN B-12) TABLET PO SCH (06:53)
[2018-12-02] MEDS: PIOGLITAZONE 30MG (ACTOS) TAB PO SCH (06:53)
--- NOTE | 2018-12-02 07:20 | Diagnostic Imaging Report ---
INDICATION: Shortness of breath, UTI and sepsis. Comparison made with prior examination from 11/30/2018 FINDINGS: Heart size is unremarkable. Some venous congestion. There is patchy right basilar infiltrate. There is no pleural effusion or pneumothorax. Mediastinum is unremarkable. IMPRESSION: Patchy right base infiltrate with some mild central pulmonary venous congestion. Dictated by: Dictated on workstation # [id number]
[2018-12-02] MEDS: LEVOFLOXACIN 500 MG/100 ML IV 100 ML IV SCH (09:53)
[2018-12-02] MEDS: SERTRALINE 100 MG (ZOLOFT) TAB PO SCH (09:55)
[2018-12-02] MEDS: ACETAMINOPHEN 325 MG TABLET PO PRN (09:55)
[2018-12-02] MEDS: FINASTERIDE (PROSCAR) 5 MG TAB PO SCH (09:55)
[2018-12-02] MEDS: ASPIRIN E.C. 81 MG (ECOTRIN) TAB PO SCH (09:55)
[2018-12-02] MEDS: inSUlin ASPART (NovoLOG) 1 UNIT/0.01 ML (CHARGE PER UNIT) SC SCH ×3 (09:56→18:50)
[2018-12-02] MEDS: TAMSULOSIN 0.4 MG (FLOMAX) CAP PO SCH (09:56)
[2018-12-02] MEDS: OMEGA 3 (FISH OIL) 1000 MG CAP PO SCH (09:56)
[2018-12-02] MEDS: LOSARTAN 100 MG (COZAAR) TABLET PO SCH (09:56)
[2018-12-02] MEDS: MELOXICAM 7.5 MG (MOBIC) TABLET PO SCH (09:56)
[2018-12-02] MEDS: LORATADINE (CLARITIN) 10 MG TAB PO SCH (09:56)
[2018-12-02] MEDS: PANTOPRAZOLE 20 MG TABLET (PROTONIX) PO SCH (09:56)
[2018-12-02] MEDS: SILVER SULFADIAZINE 50 GM CREAM TOP SCH (09:57)
--- NOTE | 2018-12-02 09:58 | Physical Therapy Evaluation ---
PT Evaluation-General Medical Diagnosis Admission Date Nov 30, 2018 at 21:44 Medical Diagnosis: UTI/sepsis Onset Date: Dec 01, 2018 Therapy Diagnosis Therapy Diagnosis: debility Height/Weight Height (Feet): 6 Height (Inches): 7.00 Weight (Pounds): 380 Weight (Ounces): 0.0 Precautions Precautions/Isolations: Fall Prevention, Standard Precautions Referral Physician: Avinash Reason for Referral: Evaluation/Treatment Medical History Pertinent Medical History: COPD, DM, HTN Current History ER secondary to vomiting and chill/recent hospital stay Reviewed History: Yes Social History Home: Single Level Current Living Status: Spouse Prior/Core FIM Prior Level of Function Therapy Code Descriptions/Definitions Functional [place] Measure: 0=Not Assessed/NA 4=Minimal Assistance 1=Total Assistance 5=Supervision or Setup 2=Maximal Assistance 6=Modified [place] 3=Moderate Assistance 7=Complete [place] Therapy Quality Codes: 6 Independent with activity with or without an assistive device 5 Patient requires set up or clean up by helper. Patient completes activity by themselves 4 Supervision or touching assist (CGA). Law[place] provide cues , steadying assist 3 The helper provides less than half the effort to complete the activity 2 The helper provides more than half the effort to complete the activity 1 Dependent. The helper does all the effort to complete an activity 7 Patient refused to complete or attempt activity 9 The patient did not perform the activity before the current illness or injury 88 Not attempted due to Medical conditions or safety concerns Functional Abilities and Goals: Independent: Patient completed the activities by him/herself, with or without an assistive device, with no assistance from a helper. Needed Some Help: Patient needed partial assistance from another person to complete activities. Dependent: A helper completed the activities for the patient. Unknown: Not Applicable: Bed Mobility: 7 Transfers (B,C,W/C) (FIM): 7 Gait: 7 Indoor Mobility (Ambulation): Independent Stairs: Independent Prior Devices Use: None PT Evaluation-Current Subjective Patient agrees to PT. He reports he is feeling much better. Objective Patient Orientation: Normal For Age Problem Solving: Good ROM/Strength ROM Lower Extremities bilateral LE WFL Strength Lower Extremities 4+/5 grossly bilaterally Integumentary/Posture Integumentary refer to nursing notes Bowel Incontinence: No Bladder Incontinence: No Posture slight trunk flexed posture Neuromuscular (Tone, Coordination, Reflexes) grossly intact Sensory Vision: Wears Glasses Hearing: Impaired Sensation Right Lower Extremit: Impaired Sensation Left Lower Extremity: Impaired Transfers Therapy Code Descriptions/Definitions Functional [place] Measure: 0=Not Assessed/NA 4=Minimal Assistance 1=Total Assistance 5=Supervision or Setup 2=Maximal Assistance 6=Modified [place] 3=Moderate Assistance 7=Complete [place] Transfers (B, C, W/C) (FIM): 7 Scootin Rollin Supine to/from Sit: 7 Sit to/from Stand: 7 Patient donned clothes and socks and shoes independently Gait Mode of Locomotion: Walk Anticipated Mode of Locomotion: Walk Gait (FIM): 7 Distance (FIM): 3=150 ft Distance: 500' Gait Level of Assist: 7 Gait Assistive Device: None Comments/Gait Description safe and functional Balance Sitting Static: Normal Sitting Dynamic: Normal Standing Static: Normal Standing Dynamic: Normal Assessment/Needs 73 y.o. male, is currently at [facility] with all gross motor skills and does not require skilled therapy intervention. Patient has been instructed to ambulate PRN in hallway and be up ad aj in room. Nursing notified. Rehab Potential: Fair PT Plan Treatment/Plan Treatment Plan: Discontinue PT, goals met Treatment Plan: Other Treatment Duration: Dec 02, 2018 Frequency: 1 time per week Estimated Hrs Per Day: .25 hour per day Patient and/or Family Agrees t: Yes Time/GCodes Time In: 805 Time Out: 837 Total Billed Treatment Time: 32 Total Billed Treatment 1 visit EVLowC 14 min FA 18 min NANY LOCK PT Dec 02, 2018 09:58
--- NOTE | 2018-12-02 10:48 | Progress Note-Hospitalist ---
Subjective HPI/CC On Admission Date Seen by Provider: Dec 02, 2018 Time Seen by Provider: 10:00 Chief complaint: Fever with chills HPI: This is a 73yoWM clinic Pt of mine that I just discharged the day before after a short hospital course for right lower lobe early pneumonia atelectasis in addition to UTI that ended up culture less than 10,000 enterococcus so he was placed on Augmentin and overall he was maintained compliance with those antibiotics but while visiting his who is inpatient rehab he began having fever and chills and temperature went up to 103, having nausea and vomiting he was sent up to the ER found to have sepsis. Pt was given aggressive IV fluids and empiric antibiotics of Zosyn and Vancomycin and close monitoring by Dr. Coleman, Dr. Curiel and Dr. Liu. He never had any bladder infections before but this seems to be a urological issue that will be addressed by Dr. Liu. Subjective/Events-last exam Pt doing well without fever Overall feels much better Prostatitis was the final diagnosis and that was updated to the pt Spoke with Dr. Coleman about the right upper lung nodule and he will need a PET scan next Thursday and follow up in his office on and Bronchoscopy the following week Overall he is doing much better and will plan on switching to oral Levaquin for good prostate penetration in addition we will maintain hospital stay until Thursday after two doses or oral antibiotics and assure no fever occurs and close follow up with Dr. Liu also Bowels are moving Foreskin of his penis is irritated so will initiate zita per Dr. Liu Review of Systems General: Fatigue Focused Exam Lactate Level 11/30/18 20:18: Lactic Acid Level 2.44*H 11/30/18 23:30: Lactic Acid Level 0.93 Objective Exam Vital Signs Vital Signs Date Time Temp Pulse Resp B/P (MAP) Pulse Ox O2 Delivery O2 Flow Rate FiO2 12/02/18 16:59 97.2 71 20 138/72 (94) 96 Room Air 12/02/18 12:00 2.00 Capillary Refill : Less Than 3 Seconds General Appearance: No Apparent Distress, WD/WN, Chronically ill, Obese HEENT: PERRL/EOMI, Normal ENT Inspection, Pharynx Normal, Moist Mucous Membranes Neck: Full Range of Motion, Normal Inspection, Non Tender Respiratory: Chest Non Tender, Lungs Clear, Normal Breath Sounds, No Accessory Muscle Use, No Respiratory Distress Cardiovascular: Regular Rate, Rhythm, No Edema, No Gallop, No JVD, No Murmur, Normal Peripheral Pulses Gastrointestinal: Normal Bowel Sounds, No Organomegaly, No Pulsatile Mass, Non Tender, Soft Back: Normal Inspection, No CVA Tenderness, No Vertebral Tenderness Extremity: Normal Capillary Refill, Normal Inspection, Normal Range of Motion, Non Tender, No Calf Tenderness, No Pedal Edema Neurologic/Psychiatric: Alert, Oriented x3, No Motor/Sensory Deficits, Normal Mood/Affect Skin: Normal Color, Warm/Dry Lymphatic: No Adenopathy Results/Procedures Lab Laboratory Tests 12/02/18 03:15 Patient resulted labs reviewed. Assessment/Plan Assessment and Plan Assess & Plan/Chief Complaint Assessment: Sepsis UTI Prostatitis Enlarged prostate on CT scan COPD Right upper lung nodule suspicious for neoplasm DM HTN HLP JULIAN BPH Plan: Monitor closely IV abx the change to PO Levaquin Conferred with Dr Liu and I appreciate his help and Dr Coleman PET scan per Dr Coleman for right upper lung mass Diagnosis/Problems Diagnosis/Problems (1) Prostatitis, acute Status: Acute (2) UTI (urinary tract infection) Status: Acute Qualifiers: Urinary tract infection type: acute cystitis Hematuria presence: without hematuria Qualified Codes: N30.00 - Acute cystitis without hematuria (3) Sepsis Status: Acute Qualifiers: Sepsis type: sepsis due to unspecified organism Qualified Codes: A41.9 - Sepsis, unspecified organism (4) Diabetes mellitus, insulin dependent (IDDM), controlled Status: Chronic (5) JULIAN on CPAP Status: Chronic (6) COPD with exacerbation Status: Chronic (7) Hypertension Status: Chronic Qualifiers: Hypertension type: essential hypertension Qualified Codes: I10 - Essential (primary) hypertension (8) GERD (gastroesophageal reflux disease) Status: Chronic Qualifiers: Esophagitis presence: without esophagitis Qualified Codes: K21.9 - Gastro- esophageal reflux disease without esophagitis (9) Vitamin B 12 deficiency Status: Chronic (10) Osteoarthritis Status: Chronic Qualifiers: Osteoarthritis location: unspecified site Osteoarthritis type: unspecified Qualified Codes: M19.90 - Unspecified osteoarthritis, unspecified site (11) Hyperlipidemia Status: Chronic Qualifiers: Hyperlipidemia type: mixed hyperlipidemia Qualified Codes: E78.2 - Mixed hyperlipidemia (12) Fever Status: Resolved Qualifiers: Fever type: unspecified Qualified Codes: R50.9 - Fever, unspecified Resolution Date/Time: 12/02/18 @ 20:38 (13) Mass of upper lobe of right lung Status: Acute Clinical Quality Measures DVT/VTE Risk/Contraindication: Risk Factor Score Per Nursin RFS Level Per Nursing on Admit: 4+=Very High RAMEZ NGO DO Dec 02, 2018 10:48
[2018-12-02] MEDS ORDERED: LEVOFLOXACIN 500 MG TAB (LEVAQUIN) PO SCH (11:00)
--- NOTE | 2018-12-02 11:29 | Occ Therapy Progress Note ---
Therapy Progress Note according to PT and NSG pt is independent in room with no safety concerns. upon OT arrival pt in bathroom independently. SCREEN complete. OT services not indicated secondary to pt functioning at baseline. pt agreed he does not need OT services. d/c OT orders at this time. pt is safe to return home. JESSICA MCNAIR OT Dec 02, 2018 11:29
--- NOTE | 2018-12-02 11:51 | Progress Note-Urology ---
Progress Note-Urology Progress Notes/Assess & Plan Progress/Assessment & Plan COMPLAINS OF TIGHT FORESKIN. HAS SOME PHIMOSIS. PLAN LOTRISONE CREAM Final Diagnosis UTI AND PHIMOSIS FAISAL HUYNH MD Dec 02, 2018 11:51
[2018-12-02] MEDS ORDERED: TROUGH ORDER-PHARMACY XX NR (13:00)
[2018-12-02] MEDS: BETAMETHASONE/CLOTRIM CREAM (LOTRISONE) 45 GM TP SCH (21:09)
[2018-12-03 03:51] VITALS: BP 125/66
[2018-12-03 05:16] LABS: BASOPHILS % (AUTO) 0 % (0-10); EOSINOPHILS # (AUTO) 0.1 10^3/uL (0.0-0.3); EOSINOPHILS % (AUTO) 2 % (0-10); HEMATOCRIT 32 % (40-54); HEMOGLOBIN 9.9 G/DL (13.3-17.7); LYMPHOCYTES # (AUTO) 1.4 X 10^3 (1.0-4.0); LYMPHOCYTES % (AUTO) 31 % (12-44); MEAN CORPUSCULAR HEMOGLOBIN 29 PG (25-34); MEAN CORPUSCULAR HGB CONC 31 G/DL (32-36); MEAN CORPUSCULAR VOLUME 94 FL (80-99); MEAN PLATELET VOLUME 10.9 FL (7.4-10.4); MONOCYTES # (AUTO) 0.5 X 10^3 (0.0-1.0); MONOCYTES % (AUTO) 10 % (0-12); NEUTROPHILS # (AUTO) 2.5 X 10^3 (1.8-7.8); NEUTROPHILS % (AUTO) 56 % (42-75); PLATELET COUNT 94 10^3/uL (130-400); RED CELL DISTRIBUTION WIDTH 17.5 % (10.0-14.5); WHITE BLOOD COUNT 4.5 10^3/uL (4.3-11.0)
[2018-12-03 05:33] LABS: ALANINE AMINOTRANSFERASE 13 U/L (0-55); ALBUMIN 3.2 GM/DL (3.2-4.5); ALKALINE PHOSPHATASE 96 U/L (40-136); BUN/CREATININE RATIO 18; CALCIUM 8.5 MG/DL (8.5-10.1); CARBON DIOXIDE 25 MMOL/L (21-32); CHLORIDE 105 MMOL/L (98-107); CREATININE SERUM 0.78 MG/DL (0.60-1.30); GFR ESTIMATED > 60; GLUCOSE 107 MG/DL (70-105); POTASSIUM 3.5 MMOL/L (3.6-5.0); SODIUM 139 MMOL/L (135-145); TOTAL PROTEIN 5.8 GM/DL (6.4-8.2)
[2018-12-03] MEDS: ENOXAPARIN 40 MG/0.4 ML (LOVENOX) SYR SC SCH ×2 (06:56→18:21)
[2018-12-03] MEDS: inSUlin ASPART (NovoLOG) 1 UNIT/0.01 ML (CHARGE PER UNIT) SC SCH ×3 (06:56→18:21)
[2018-12-03] MEDS: CYANOCOBALAMIN 1,000 MCG (VITAMIN B-12) TABLET PO SCH (06:56)
[2018-12-03] MEDS: PIOGLITAZONE 30MG (ACTOS) TAB PO SCH (06:57)
--- NOTE | 2018-12-03 07:07 | Pulmonary Progress Note ---
Subjective Time Seen by a Provider: 07:24 Subjective/Events-last exam Plan if for discharge tomorrow. Sepsis Event Evaluation Height, Weight, BMI Height: 6'7.00" Weight: 380lbs. 0.0oz. 172.127690xf; 42.8 BMI Method:Actual Focused Exam Lactate Level 11/30/18 20:18: Lactic Acid Level 2.44*H 11/30/18 23:30: Lactic Acid Level 0.93 Exam Exam Vital Signs Date Time Temp Pulse Resp B/P (MAP) Pulse Ox O2 Delivery O2 Flow Rate FiO2 12/03/18 03:51 97.9 60 20 125/66 (85) 92 Room Air 12/02/18 23:50 98.5 77 20 128/56 (80) 94 Room Air 12/02/18 20:54 98.1 90 20 137/68 (91) 94 Room Air 12/02/18 20:00 Room Air 12/02/18 16:59 97.2 71 20 138/72 (94) 96 Room Air 12/02/18 16:00 Room Air 12/02/18 12:02 98.0 77 20 141/71 (94) 96 Room Air 12/02/18 12:00 Nasal Cannula 2.00 12/02/18 09:00 93 Nasal Cannula 2.00 12/02/18 08:40 Room Air 12/02/18 08:31 98.4 81 20 130/60 (83) 96 Room Air 12/02/18 08:00 Nasal Cannula 2.00 I & O 12/03/18 07:00 Intake Total 2580 ml Balance 2580 ml Height & Weight Height: 6'7.00" Weight: 380lbs. 0.0oz. 172.006768tz; 42.8 BMI Method:Actual General Appearance: No Apparent Distress, WD/WN, Chronically ill, Obese HEENT: PERRL/EOMI, Normal ENT Inspection, Pharynx Normal, Moist Mucous Membranes Neck: Full Range of Motion, Normal Inspection, Non Tender Respiratory: Chest Non Tender, Lungs Clear, Normal Breath Sounds, No Accessory Muscle Use, No Respiratory Distress Cardiovascular: Regular Rate, Rhythm, No Edema, No Gallop, No JVD, No Murmur, Normal Peripheral Pulses Capillary Refill: Less Than 3 Seconds Gastrointestinal: normal bowel sounds, non tender, soft Extremity: Normal Capillary Refill, Normal Inspection, Normal Range of Motion, Non Tender, No Calf Tenderness, No Pedal Edema Neurologic/Psychiatric: Alert, Oriented x3, No Motor/Sensory Deficits, Normal Mood/Affect Skin: Normal Color, Warm/Dry Lymphatic: No Adenopathy Results Lab Laboratory Tests 12/02/18 03:15 12/03/18 04:54 Assessment/Plan Assessment/Plan UTI with sepsis -Pt is on Levaquin -Diaz cultured Lung mass -PET scan as out patient - Has to be done at [place] secondary to Wt. -Will discuss with Radiology about possible CT bx -Will need close F/u as out pt DM -restart home insulin I have discussed with Dr. Da Silva, and Dr. Amezquita regarding PET scan and CT bx. Secondary to pt's wt PET scan has to be done in [place] which is already scheduled. Dr. Amezquita will bx lung mass on Thursday as out patient. I will see pt back in my office for cytology results after 1 wk. MICHELLE AMADO DO Dec 03, 2018 07:07
[2018-12-03 08:00] VITALS: BP 139/74
[2018-12-03] MEDS: SERTRALINE 100 MG (ZOLOFT) TAB PO SCH (08:22)
[2018-12-03] MEDS: TAMSULOSIN 0.4 MG (FLOMAX) CAP PO SCH (08:22)
[2018-12-03] MEDS: PANTOPRAZOLE 20 MG TABLET (PROTONIX) PO SCH (08:22)
[2018-12-03] MEDS: LORATADINE (CLARITIN) 10 MG TAB PO SCH (08:23)
[2018-12-03] MEDS: LOSARTAN 100 MG (COZAAR) TABLET PO SCH (08:23)
[2018-12-03] MEDS: SILVER SULFADIAZINE 50 GM CREAM TOP SCH (08:23)
[2018-12-03] MEDS: BETAMETHASONE/CLOTRIM CREAM (LOTRISONE) 45 GM TP SCH ×2 (08:23→22:58)
[2018-12-03] MEDS: FINASTERIDE (PROSCAR) 5 MG TAB PO SCH (08:23)
[2018-12-03] MEDS: OMEGA 3 (FISH OIL) 1000 MG CAP PO SCH (08:23)
[2018-12-03] MEDS: MELOXICAM 7.5 MG (MOBIC) TABLET PO SCH (08:23)
[2018-12-03] MEDS: ASPIRIN E.C. 81 MG (ECOTRIN) TAB PO SCH (08:23)
--- NOTE | 2018-12-03 09:55 | NUR ---
PATIENT TEMPERATURE AT 102, B/P 182/73, RR 34. PATIENT REPORTS FEELING COLD, IS SHIVERING AND HAS MULTIPLE BLANKETS ON HIM. TYLENOL GIVEN AT 2138, DR NGO NOTIFIED. WILL CONTINUE TO MONITOR Addendum: 12/04/18 at 0146 by ADI MUNSON RN CORRECT TIME OF NOTE SHOULD BE 12/03/18 AT 2156
[2018-12-03] MEDS: POTASSIUM CL 10MEQ/50ML IVPB 50 ML IV SCH ×4 (10:11→13:37)
[2018-12-03] MEDS ORDERED: NS IV 500 ML 500 ML IV SCH (10:15)
--- NOTE | 2018-12-03 10:57 | PM&R Progress Note ---
Subjective HPI/CC On Admission Date Seen by Provider: Dec 03, 2018 Time Seen by Provider: 10:00 Chief complaint: Fever with chills HPI: This is a 73yoWM clinic Pt of mine that I just discharged the day before after a short hospital course for right lower lobe early pneumonia atelectasis in addition to UTI that ended up culture less than 10,000 enterococcus so he was placed on Augmentin and overall he was maintained compliance with those antibiotics but while visiting his who is inpatient rehab he began having fever and chills and temperature went up to 103, having nausea and vomiting he was sent up to the ER found to have sepsis. Pt was given aggressive IV fluids and empiric antibiotics of Zosyn and Vancomycin and close monitoring by Dr. Coleman, Dr. Curiel and Dr. Liu. He never had any bladder infections before but this seems to be a urological issue that will be addressed by Dr. Liu. Focused Exam Lactate Level 11/30/18 20:18: Lactic Acid Level 2.44*H 11/30/18 23:30: Lactic Acid Level 0.93 Objective Exam Vital Signs Vital Signs Date Time Temp Pulse Resp B/P (MAP) Pulse Ox O2 Delivery O2 Flow Rate FiO2 12/03/18 08:00 98.0 74 20 139/74 (95) 95 Room Air 12/02/18 12:00 2.00 Capillary Refill : Less Than 3 Seconds General Appearance: No Apparent Distress, WD/WN, Chronically ill, Obese HEENT: PERRL/EOMI, Normal ENT Inspection, Pharynx Normal, Moist Mucous Membranes Neck: Full Range of Motion, Normal Inspection, Non Tender Respiratory: Chest Non Tender, Lungs Clear, Normal Breath Sounds, No Accessory Muscle Use, No Respiratory Distress Cardiovascular: Regular Rate, Rhythm, No Edema, No Gallop, No JVD, No Murmur, Normal Peripheral Pulses Gastrointestinal: Normal Bowel Sounds, No Organomegaly, No Pulsatile Mass, Non Tender, Soft Back: Normal Inspection, No CVA Tenderness, No Vertebral Tenderness Extremity: Normal Capillary Refill, Normal Inspection, Normal Range of Motion, Non Tender, No Calf Tenderness, No Pedal Edema Neurologic/Psychiatric: Alert, Oriented x3, No Motor/Sensory Deficits, Normal Mood/Affect Skin: Normal Color, Warm/Dry Lymphatic: No Adenopathy Results/Procedures Lab Laboratory Tests 6/21/19 04:54 Patient resulted labs reviewed. FIM Transfers Therapy Code Descriptions/Definitions Functional [place] Measure: 0=Not Assessed/NA 4=Minimal Assistance 1=Total Assistance 5=Supervision or Setup 2=Maximal Assistance 6=Modified [place] 3=Moderate Assistance 7=Complete [place] Therapy Quality Codes: 6 Independent with activity with or without an assistive device 5 Patient requires set up or clean up by helper. Patient completes activity by themselves 4 Supervision or touching assist (CGA). [place] provide cues , steadying assist 3 The helper provides less than half the effort to complete the activity 2 The helper provides more than half the effort to complete the activity 1 Dependent. The helper does all the effort to complete an activity 7 Patient refused to complete or attempt activity 9 The patient did not perform the activity before the current illness or injury 88 Not attempted due to Medical conditions or safety concerns Transfers (B, C, W/C) (FIM): 7 Scootin Rollin Supine to/from Sit: 7 Sit to/from Stand: 7 Gait Training Gait (FIM): 7 Distance (FIM): 3=150 ft Gait Level of Assist: 7 Gait Assistive Device: None Assessment/Plan Assessment and Plan Assess & Plan/Chief Complaint Assessment: Sepsis UTI Prostatitis Enlarged prostate on CT scan COPD Right upper lung nodule suspicious for neoplasm DM HTN HLP JULIAN BPH Plan: Monitor closely IV abx the change to PO Levaquin Conferred with Dr Liu and I appreciate his help and Dr Coleman PET scan per Dr Coleman for right upper lung mass (1) Prostatitis, acute (2) UTI (urinary tract infection) (3) Sepsis (4) Diabetes mellitus, insulin dependent (IDDM), controlled (5) JULIAN on CPAP (6) COPD with exacerbation (7) Hypertension (8) GERD (gastroesophageal reflux disease) (9) Vitamin B 12 deficiency (10) Osteoarthritis (11) Hyperlipidemia (12) Fever Resolution Date/Time: 12/02/18 @ 20:38 (13) Mass of upper lobe of right lung RAMEZ NGO DO Dec 03, 2018 10:57
--- NOTE | 2018-12-03 11:33 | Progress Note-Hospitalist ---
Subjective HPI/CC On Admission Date Seen by Provider: Dec 03, 2018 Time Seen by Provider: 10:00 Chief complaint: Fever with chills HPI: This is a 73yoWM clinic Pt of mine that I just discharged the day before after a short hospital course for right lower lobe early pneumonia atelectasis in addition to UTI that ended up culture less than 10,000 enterococcus so he was placed on Augmentin and overall he was maintained compliance with those antibiotics but while visiting his who is inpatient rehab he began having fever and chills and temperature went up to 103, having nausea and vomiting he was sent up to the ER found to have sepsis. Pt was given aggressive IV fluids and empiric antibiotics of Zosyn and Vancomycin and close monitoring by Dr. Coleman, Dr. Curiel and Dr. Liu. He never had any bladder infections before but this seems to be a urological issue that will be addressed by Dr. Liu. Subjective/Events-last exam Patient doing well PO Levaquin started today and will keep until tomorrow after his second Levaquin dose is given CT guided biopsy of left upper lobe mass will be completed on Thursday by Dr Buddy Amezquita CT guided since it does appear to be suspicious for cancer Dr Liu provided zita for his penis foreskin yeast infection Dr Liu recommended Levaquin for 2 weeks 500mg daily so I will send that into [facility] for daughter to strip picker before DC. No pain is reported Review of Systems General: Fatigue Focused Exam Lactate Level 11/30/18 20:18: Lactic Acid Level 2.44*H 11/30/18 23:30: Lactic Acid Level 0.93 Objective Exam Vital Signs Vital Signs Date Time Temp Pulse Resp B/P (MAP) Pulse Ox O2 Delivery O2 Flow Rate FiO2 12/03/18 08:00 98.0 74 20 139/74 (95) 95 Room Air 12/02/18 12:00 2.00 Capillary Refill : Less Than 3 Seconds General Appearance: No Apparent Distress, WD/WN, Chronically ill, Obese HEENT: PERRL/EOMI, Normal ENT Inspection, Pharynx Normal, Moist Mucous Membranes Neck: Full Range of Motion, Normal Inspection, Non Tender Respiratory: Chest Non Tender, Lungs Clear, Normal Breath Sounds, No Accessory Muscle Use, No Respiratory Distress Cardiovascular: Regular Rate, Rhythm, No Edema, No Gallop, No JVD, No Murmur, Normal Peripheral Pulses Gastrointestinal: Normal Bowel Sounds, No Organomegaly, No Pulsatile Mass, Non Tender, Soft Back: Normal Inspection, No CVA Tenderness, No Vertebral Tenderness Extremity: Normal Capillary Refill, Normal Inspection, Normal Range of Motion, Non Tender, No Calf Tenderness, No Pedal Edema Neurologic/Psychiatric: Alert, Oriented x3, No Motor/Sensory Deficits, Normal Mood/Affect Skin: Normal Color, Warm/Dry Lymphatic: No Adenopathy Results/Procedures Lab Laboratory Tests 12/03/18 04:54 Patient resulted labs reviewed. Assessment/Plan Assessment and Plan Assess & Plan/Chief Complaint Assessment: Sepsis UTI Prostatitis Enlarged prostate on CT scan COPD Right upper lung nodule suspicious for neoplasm DM HTN HLP JULIAN BPH Plan: Monitor closely IV abx the change to PO Levaquin Conferred with Dr Liu and I appreciate his help and Dr Coleman CT guided needle biopsy right upper lung mass on Thursday by Dr Amezquita Diagnosis/Problems Diagnosis/Problems (1) Prostatitis, acute Status: Acute (2) UTI (urinary tract infection) Status: Acute Qualifiers: Urinary tract infection type: acute cystitis Hematuria presence: without hematuria Qualified Codes: N30.00 - Acute cystitis without hematuria (3) Sepsis Status: Acute Qualifiers: Sepsis type: sepsis due to unspecified organism Qualified Codes: A41.9 - Sepsis, unspecified organism (4) Diabetes mellitus, insulin dependent (IDDM), controlled Status: Chronic (5) JULIAN on CPAP Status: Chronic (6) COPD with exacerbation Status: Chronic (7) Hypertension Status: Chronic Qualifiers: Hypertension type: essential hypertension Qualified Codes: I10 - Essential (primary) hypertension (8) GERD (gastroesophageal reflux disease) Status: Chronic Qualifiers: Esophagitis presence: without esophagitis Qualified Codes: K21.9 - Gastro- esophageal reflux disease without esophagitis (9) Vitamin B 12 deficiency Status: Chronic (10) Osteoarthritis Status: Chronic Qualifiers: Osteoarthritis location: unspecified site Osteoarthritis type: unspecified Qualified Codes: M19.90 - Unspecified osteoarthritis, unspecified site (11) Hyperlipidemia Status: Chronic Qualifiers: Hyperlipidemia type: mixed hyperlipidemia Qualified Codes: E78.2 - Mixed hyperlipidemia (12) Fever Status: Resolved Qualifiers: Fever type: unspecified Qualified Codes: R50.9 - Fever, unspecified Resolution Date/Time: 6/20/19 @ 20:38 (13) Mass of upper lobe of right lung Status: Acute Clinical Quality Measures DVT/VTE Risk/Contraindication: Risk Factor Score Per Nursin RFS Level Per Nursing on Admit: 4+=Very High RAMEZ NGO DO Dec 03, 2018 11:33
[2018-12-03] MEDS ORDERED: CLOT15CR6 TP (11:37)
[2018-12-03] MEDS ORDERED: SILV20CR14 TOP (11:37)
[2018-12-03] MEDS ORDERED: LEVO500T80 PO (11:37)
[2018-12-03 12:00] VITALS: BP 130/68
[2018-12-03] MEDS: LEVOFLOXACIN 500 MG TAB (LEVAQUIN) PO SCH (12:44)
--- NOTE | 2018-12-03 13:52 | Progress Note-Urology ---
Progress Note-Urology Progress Notes/Assess & Plan Progress/Assessment & Plan OK TO DISCHARGE ON LEVAQUIN FOR TOTAL OF 14 DAYS. WE WILL SEE IN OFFICE AND PLAN CYSTOSCOPY. PLAN FULL RE EXPLAINED TO HIM Final Diagnosis UTIS FAISAL HUYNH MD Dec 03, 2018 13:52
--- NOTE | 2018-12-03 15:39 | NUR ---
Pastoral care visit.
[2018-12-03 16:08] VITALS: BP 154/70
[2018-12-03 20:51] VITALS: BP 168/73
[2018-12-03] MEDS: ACETAMINOPHEN 325 MG TABLET PO PRN (21:39)
--- NOTE | 2018-12-03 22:30 | NUR ---
PATIENT'S TEMPERATURE AT 102.[address] NGO NOTIFIED, AND ORDERED TO GIVE IBUPROFEN, IV ANTIBIOTICS, IV FLUIDS AT 75CC/HR, BLOOD CULTURES x2 AND OBTAIN LACTIC ACID.
[2018-12-03] MEDS: ONDANSETRON 4 MG/2 ML (SDV) Z0FRAN IV PRN (22:34)
[2018-12-03] MEDS: IBUPROFEN 600 MG (MOTRIN) TAB PO PRN (22:39)
[2018-12-03] MEDS ORDERED: NS IV 1000 ML 1,000 ML ONE (22:44)
[2018-12-03] MEDS ORDERED: VANCOMYCIN INJECTION 1,000 MG in NS (IVPB) 250 ML IV SCH (22:45)
[2018-12-03] MEDS ORDERED: PIPERACILLIN/TAZO 4.5 GM VIAL (ZOSYN) IV ONE (23:03)
[2018-12-03] MEDS ORDERED: NS (IVPB) 100 ML ONE (23:03)
[2018-12-03] MEDS ORDERED: VANCOMYCIN INJECTION 1GM (OMNI 250 ML IV ONE (23:03)
[2018-12-03] MEDS: PIPERACILLIN/TAZOBACTAM (BULK) 4.5 GM in NS (IVPB) 100 ML IV SCH (23:37)
[2018-12-03] MEDS: NS IV 1000 ML 1,000 ML IV SCH (23:37)
--- NOTE | 2018-12-03 23:39 | NUR ---
critical result, lactic acid 2.11, received from lab by this nurse at [id number], notified at [id number].
--- NOTE | 2018-12-03 23:40 | NUR ---
PATIENT TEMPERATURE AT 99.7
[2018-12-03 23:43] VITALS: BP 156/69
[2018-12-03 23:44] LABS: BILIRUBIN,URINE NEGATIVE (NEGATIVE); CLARITY,URINE CLEAR; COLOR,URINE YELLOW; GLUCOSE, URINE (UA) NEGATIVE (NEGATIVE); KETONES,URINE NEGATIVE (NEGATIVE); LEUKOCYTE ESTERASE ,URINE 1+ (NEGATIVE); NITRITE,URINE NEGATIVE (NEGATIVE); PH,URINE 5 (5-9); PROTEIN,URINE NEGATIVE (NEGATIVE); UROBILINOGEN,URINE 1 MG/DL (NORMAL)
[2018-12-03 23:56] LABS: BACTERIA,URINE FEW /HPF; RBC,URINE 0-2 /HPF
[2018-12-04] VITALS (7 sets, daily range): BP systolic 104–127; BP diastolic 50–63
[2018-12-04] MEDS: PIOGLITAZONE 30MG (ACTOS) TAB PO SCH (06:22)
[2018-12-04] MEDS: ENOXAPARIN 40 MG/0.4 ML (LOVENOX) SYR SC SCH ×2 (06:22→16:35)
[2018-12-04] MEDS: CYANOCOBALAMIN 1,000 MCG (VITAMIN B-12) TABLET PO SCH (06:22)
[2018-12-04] MEDS ORDERED: PIPERACILLIN/TAZO 4.5 GM VIAL (ZOSYN) IV ONE (06:43)
[2018-12-04] MEDS ORDERED: NS (IVPB) 100 ML ONE (06:43)
[2018-12-04] MEDS: PIPERACILLIN/TAZOBACTAM (BULK) 4.5 GM in NS (IVPB) 100 ML IV SCH (06:55)
[2018-12-04] MEDS ORDERED: PIPERACILLIN/TAZO 4.5 GM/NS 100 ML IV NR ×2 (08:00)
[2018-12-04] MEDS: VANCOMYCIN 2000 MG/NS 500 ML IVPB IV SCH ×4 (08:47→21:46)
[2018-12-04] MEDS: ONDANSETRON 4 MG/2 ML (SDV) Z0FRAN IV PRN (09:01)
[2018-12-04] MEDS: PANTOPRAZOLE 20 MG TABLET (PROTONIX) PO SCH (09:03)
[2018-12-04] MEDS: SERTRALINE 100 MG (ZOLOFT) TAB PO SCH (09:03)
[2018-12-04] MEDS: FINASTERIDE (PROSCAR) 5 MG TAB PO SCH (09:03)
[2018-12-04] MEDS: LEVOFLOXACIN 500 MG TAB (LEVAQUIN) PO SCH (09:03)
[2018-12-04] MEDS: TAMSULOSIN 0.4 MG (FLOMAX) CAP PO SCH (09:03)
[2018-12-04] MEDS: OMEGA 3 (FISH OIL) 1000 MG CAP PO SCH (09:03)
[2018-12-04] MEDS: LORATADINE (CLARITIN) 10 MG TAB PO SCH (09:03)
[2018-12-04] MEDS: ASPIRIN E.C. 81 MG (ECOTRIN) TAB PO SCH (09:03)
[2018-12-04] MEDS: LOSARTAN 100 MG (COZAAR) TABLET PO SCH (09:03)
[2018-12-04] MEDS: ACETAMINOPHEN 325 MG TABLET PO PRN ×2 (09:04→16:35)
[2018-12-04] MEDS: SILVER SULFADIAZINE 50 GM CREAM TOP SCH (09:06)
[2018-12-04] MEDS: BETAMETHASONE/CLOTRIM CREAM (LOTRISONE) 45 GM TP SCH ×2 (09:06→21:46)
--- NOTE | 2018-12-04 09:14 | Pulmonary Progress Note ---
Subjective Time Seen by a Provider: 09:09 Subjective/Events-last exam PT started having fever/chills rigors last night. Dr. Da Silva has already ad vanced Abx and ordered repeat donnelly cultures. Sepsis Event Evaluation Height, Weight, BMI Height: 6'7.00" Weight: 359lbs. 7.0oz. 163.188362zp; 42.8 BMI Method:Actual Focused Exam Lactate Level 12/03/18 23:00: Lactic Acid Level 2.11*H 12/04/18 00:55: Lactic Acid Level 2.15*H Exam Exam Vital Signs Date Time Temp Pulse Resp B/P (MAP) Pulse Ox O2 Delivery O2 Flow Rate FiO2 12/04/18 08:00 96.8 70 20 119/63 (81) 94 Room Air 12/04/18 06:56 70 111/55 (73) 91 12/04/18 04:00 97.4 77 18 104/52 (69) 91 Room Air 12/03/18 23:43 97.8 108 20 156/69 (98) 95 Room Air 12/03/18 23:30 Room Air 12/03/18 23:09 99.7 12/03/18 22:39 102.4 12/03/18 22:09 102.4 12/03/18 21:39 102.0 12/03/18 20:51 98.9 84 20 168/73 (104) 95 Room Air 12/03/18 20:20 Room Air 12/03/18 16:08 98.3 82 20 154/70 (98) 96 Room Air 12/03/18 12:00 97.6 75 20 130/68 (88) 97 Room Air I & O 12/04/18 07:00 Intake Total 3270 ml Output Total 255 ml Balance 3015 ml Height & Weight Height: 6'7.00" Weight: 359lbs. 7.0oz. 163.148237yp; 42.8 BMI Method:Actual General Appearance: No Apparent Distress, WD/WN, Chronically ill, Obese HEENT: PERRL/EOMI, Normal ENT Inspection, Pharynx Normal, Moist Mucous Membranes Neck: Full Range of Motion, Normal Inspection, Non Tender Respiratory: Chest Non Tender, Lungs Clear, Normal Breath Sounds, No Accessory Muscle Use, No Respiratory Distress Cardiovascular: Regular Rate, Rhythm, No Edema, No Gallop, No JVD, No Murmur, Normal Peripheral Pulses Capillary Refill: Less Than 3 Seconds Gastrointestinal: normal bowel sounds, non tender, soft Extremity: Normal Capillary Refill, Normal Inspection, Normal Range of Motion, Non Tender, No Calf Tenderness, No Pedal Edema Neurologic/Psychiatric: Alert, Oriented x3, No Motor/Sensory Deficits, Normal Mood/Affect Skin: Normal Color, Warm/Dry Lymphatic: No Adenopathy Results Lab Laboratory Tests 12/03/18 04:54 Assessment/Plan Assessment/Plan UTI with sepsis -Pt is on Levaquin -Donnelly cultured Worsening fever, N/V rigors- pt states it was sudden onset and he now feels improved -CHeck TSH, Free T4, T3. Check amylase lipase -repeat labs and donnelly cultures pending -order daily AM labs -Repeat LA -Repeat PA/Lat CXR -May need repeat CT of chest Abd/Pelvis -UA reviewed Metabolic lactic acidosis -Will give a liter bolus of NS and increase IVF to 150 -Increase IVF to 150 for now Lung mass -PET scan is scheduled at [place] for December -May need to hold off on CT bx scheduled for Thursday if pt is still showing signs of infection -Will need close F/u as out pt DM -restart home insulin MICHELLE AMADO DO Dec 04, 2018 09:14
[2018-12-04] MEDS ORDERED: NS IV 1000 ML 1,000 ML IV SCH (09:15)
[2018-12-04 09:21] LABS: BASOPHILS % (AUTO) 0 % (0-10); EOSINOPHILS # (AUTO) 0.1 10^3/uL (0.0-0.3); EOSINOPHILS % (AUTO) 1 % (0-10); HEMATOCRIT 31 % (40-54); HEMOGLOBIN 9.8 G/DL (13.3-17.7); LYMPHOCYTES # (AUTO) 0.8 X 10^3 (1.0-4.0); LYMPHOCYTES % (AUTO) 13 % (12-44); MEAN CORPUSCULAR HEMOGLOBIN 29 PG (25-34); MEAN CORPUSCULAR HGB CONC 31 G/DL (32-36); MEAN CORPUSCULAR VOLUME 94 FL (80-99); MEAN PLATELET VOLUME 10.3 FL (7.4-10.4); MONOCYTES # (AUTO) 0.6 X 10^3 (0.0-1.0); MONOCYTES % (AUTO) 10 % (0-12); NEUTROPHILS # (AUTO) 4.3 X 10^3 (1.8-7.8); NEUTROPHILS % (AUTO) 76 % (42-75); PLATELET COUNT 92 10^3/uL (130-400); RED CELL DISTRIBUTION WIDTH 17.7 % (10.0-14.5); WHITE BLOOD COUNT 5.7 10^3/uL (4.3-11.0)
[2018-12-04] MEDS: inSUlin ASPART (NovoLOG) 1 UNIT/0.01 ML (CHARGE PER UNIT) SC SCH ×3 (09:30→16:51)
[2018-12-04] MEDS: MELOXICAM 7.5 MG (MOBIC) TABLET PO SCH (09:31)
[2018-12-04 09:37] LABS: ALANINE AMINOTRANSFERASE 11 U/L (0-55); ALBUMIN 3.2 GM/DL (3.2-4.5); ALKALINE PHOSPHATASE 101 U/L (40-136); BILIRUBIN,TOTAL 1.4 MG/DL (0.1-1.0); BUN/CREATININE RATIO 16; CALCIUM 8.4 MG/DL (8.5-10.1); CARBON DIOXIDE 24 MMOL/L (21-32); CHLORIDE 107 MMOL/L (98-107); CREATININE SERUM 0.86 MG/DL (0.60-1.30); GFR ESTIMATED > 60; GLUCOSE 191 MG/DL (70-105); MAGNESIUM 1.8 MG/DL (1.8-2.4); PHOSPHORUS 3.3 MG/DL (2.3-4.7); POTASSIUM 4.1 MMOL/L (3.6-5.0); SODIUM 139 MMOL/L (135-145); TOTAL PROTEIN 5.5 GM/DL (6.4-8.2)
[2018-12-04 10:19] LABS: FREE T4 (FREE THYROXINE) 0.94 NG/DL (0.70-1.48)
--- NOTE | 2018-12-04 10:52 | Consultation-Cardiology ---
HPI-Cardiology Cardiology Consultation: Date of Consultation 12/04/18 Time Seen by a Provider: 11:00 Date of Admission 11/30/18 Attending Physician Jl Dorsey MD Admitting Physician Raven Ngo DO Consulting Physician EDWIGE MORALES MD, MA, FACP, FACC, [facility], CCDS Physician requesting consult: Dr Coleman, Dr Ngo HPI: Chief Complaint: Reason for consultation: Recurrent sepsis HPI 73 yo man admitted with sepsis and UTI by Dr Ngo in the first half of November 2018, d/c'd on 11/29/18, and readmitted by Dr Ngo on 11/30/18 due to recurrent sepsis (likely due to UTI) He notes gen malaise. No cp or palp or syncope Chronic exertional shortness of breath and intermittent leg swelling Review of Systems-Cardiology Review of Systems Constitutional: As described under HPI Eyes: No vision change Ears/Nose/Throat: No ear discharge, No nasal drainage, No recent hearing loss Respiratory: As described under HPI Cardiovascular: As described under HPI Gastrointestinal: No diarrhea, No nausea, No vomiting Genitourinary: No dysuria, No hematuria, No urine frequency changes Musculoskeletal: back pain (chronic) Skin: No rash, No ulcerations Psychiatric/Neurological: No seizure, No focal weakness, No syncope Hematologic: No bleeding abnormalities All Other Systems Reviewed Negative Unless Noted: Yes QGC-Lcoxhy-Jnhthj Hx Patient Social History Marrital Status: 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 Family Medical History Family History: Patient reports no known family medical history. Allergies and Home Medications Allergies Coded Allergies: No Known Drug Allergies (Unverified , 11/26/18) Home Medications Albuterol Sulfate 1 Puff Puff, 2 PUFF INH Q4H PRN for SHORTNESS OF BREATH, (Reported) Amoxicillin/Potassium Clav 1 Each Tablet, 1 TAB PO BID, (Reported) 3 DAY SUPPLY FILLED 11-29-18 Aspirin 81 Mg Tablet., 81 MG PO DAILY, (Reported) C,E,Zinc,Copper 11/Snttn6b/Lut 1 Each Capsule, 1 CAP PO DAILY, (Reported) Cetirizine HCl 10 Mg Tablet, 10 MG PO DAILY, (Reported) Clotrimazole/Betamethasone Dip 15 Gm Cream..g., 0 GM TP BID Prescribed by: RAVEN NGO on 12/03/18 1137 Cyanocobalamin (Vitamin B-12) 2,000 Mcg Tablet, 2,000 MCG PO DAILY, (Reported) Finasteride 5 Mg Tablet, 5 MG PO DAILY, (Reported) Glycopyrrolate/Formoterol Fum 10.7 Gm Hfa.aer.ad, 2 PUFF INH BID, (Reported) Guaifenesin/Codeine Phosphate 118 Ml Liquid, 5 ML PO Q4H PRN for COUGH, (Reported) Insulin Glargine,Hum.rec.anlog 100 Unit/1 Ml Vial, 80 UNITS SC HS, (Reported) Insulin Glargine,Hum.rec.anlog 100 Unit/1 Ml Vial, 40 UNIT SQ DAILY, (Reported) Insulin Lispro 100 Unit/1 Ml Vial, 30 UNITS SC TIDAC, (Reported) Levofloxacin 500 Mg Tablet, 500 MG PO DAILY@11 Prescribed by: RAVEN NGO on 12/03/18 113 Losartan Potassium 100 Mg Tablet, 100 MG PO DAILY, (Reported) Meloxicam 7.5 Mg Tablet, 7.5 MG PO DAILY, (Reported) Metformin HCl 500 Mg Tablet, 500 MG PO DAILY, (Reported) [place] 3 Polyunsat Fatty Acids 1,000 Mg Cap, 1,000 MG PO DAILY, (Reported) Omeprazole 20 Mg Capsule.dr, 20 MG PO DAILY, (Reported) Pioglitazone HCl 15 Mg Tablet, 15 MG PO DAILY, (Reported) Sertraline HCl 100 Mg Tablet, 100 MG PO DAILY, (Reported) Silver Sulfadiazine 20 Gm Cream..g., 0 GM TOP DAILY Prescribed by: RAVEN NGO on 12/03/18 1137 Tamsulosin HCl 0.4 Mg Cap, 0.4 MG PO DAILY, (Reported) Patient Home Medication List Home Medication List Reviewed: Yes Physical Exam-Cardiology Physical Exam Vital Signs/I&O 12/03/18 12/03/18 12/04/18 12/04/18 23:30 23:43 04:00 06:56 Temp 97.8 97.4 Pulse 108 77 70 Resp 20 18 B/P (MAP) 156/69 (98) 104/52 (69) 111/55 (73) Pulse Ox 95 91 91 O2 Delivery Room Air Room Air Room Air 12/04/18 08:00 Temp 96.8 Pulse 70 Resp 20 B/P (MAP) 119/63 (81) Pulse Ox 94 O2 Delivery Room Air 12/04/18 00:00 Intake Total 2490 ml Output Total 5 ml Balance 2485 ml Capillary Refill : Less Than 3 Seconds Constitutional: AAO x 3, well-developed, well-nourished HEENT: EOMI, hearing is well preserved; No xanthelasmas are seen Neck: carotid pulses are 2 + bilaterally, with good upstrokes Respiratory: No accessory muscle use; lungs clear to percussion Cardiovascular: regular rate-rhythm, S1 and S2, systolic murmur (faint LENNOX at card base) Gastrointestinal: No tender; soft; No guarding, No rebound; audible bowel sounds Extremities: swelling (mild edema of the legs); No clubbing, No cyanosis Neurologic/Psychiatric: grossly intact Skin: No rash on exposed areas, No ulcerations on exposed areas Data Review Labs Laboratory Tests 12/03/18 16:05: Glucometer 165H 12/03/18 20:48: Glucometer 246H 12/03/18 22:45: Urine Color YELLOW, Urine Clarity CLEAR, Urine pH 5, Urine Specific [place] 1.015L, Urine Protein NEGATIVE, Urine Glucose (UA) NEGATIVE, Urine Ketones NEGATIVE, Urine Nitrite NEGATIVE, Urine Bilirubin NEGATIVE, Urine Urobilinogen 1, Urine Leukocyte Esterase 1+H, Urine RBC (Auto) NEGATIVE, Urine RBC 0-2, Urine WBC 2-5, Urine Crystals NONE, Urine Bacteria FEWH, Urine Casts NONE, Urine Mucus NEGATIVE, Urine Culture Indicated NO 12/03/18 23:00: Lactic Acid Level 2.11*H 12/04/18 00:55: Lactic Acid Level 2.15*H 12/04/18 05:19: Glucometer 186H 12/04/18 09:04: White Blood Count 5.7, Red Blood Count 3.34L, Hemoglobin 9.8L, Hematocrit 31L, Mean Corpuscular Volume 94, Mean Corpuscular Hemoglobin 29, Mean Corpuscular Hemoglobin Concent 31L, Red Cell Distribution Width 17.7H, Platelet Count 92L, Mean Platelet Volume 10.3, Neutrophils (%) (Auto) 76H, Lymphocytes (%) (Auto) 13, Monocytes (%) (Auto) 10, Eosinophils (%) (Auto) 1, Basophils (%) (Auto) 0, Neutrophils # (Auto) 4.3, Lymphocytes # (Auto) 0.8L, Monocytes # (Auto) 0.6, Eosinophils # (Auto) 0.1, Basophils # (Auto) 0.0, Sodium Level 139, Potassium Level 4.1, Chloride Level 107, Carbon Dioxide Level 24, Anion Gap 8, Blood Urea Nitrogen 14, Creatinine 0.86, Estimat Glomerular Filtration Rate > 60, BUN/Creatinine Ratio 16, Glucose Level 191H, Calcium Level 8.4L, Corrected Calcium 9.0, Phosphorus Level 3.3, Magnesium Level 1.8, Total Bilirubin 1.4H, Aspartate Amino Transf (AST/SGOT) 14, Alanine Aminotransferase (ALT/SGPT) 11, Alkaline Phosphatase 101, B-Type Natriuretic Peptide 175.5H, Total Protein 5.5L, Albumin 3.2 12/04/18 09:14: Amylase Level 25, Lipase 7L, Thyroid Stimulating Hormone (TSH) 1.15, Free Thyroxine 0.94 Microbiology 11/30/18 Blood Culture - Preliminary, Resulted No growth 11/30/18 Urine Culture - Final, Complete NO GROWTH Laboratory Tests 12/03/18 04:54 12/04/18 09:04 A/P-Cardiology Assessment/Admission Diagnosis UTI with sepsis (recurrent sepsis), managed by Dr Ngo Pulm lesion/mass, managed by Dr Ngo and Dr Coleman H/o COPD JULIAN Type 2 IN (mild troponin elevation during earlier admission of 11/26/18) Mild anemia of undetermined etiology, managed by Dr Ngo Hypertension, by history Hyperlipidemia, by history Diabetes mellitus II, followed and managed by primary care physician Obesity, BMI is approx 41 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
--- NOTE | 2018-12-04 10:57 | Diagnostic Imaging Report ---
EXAM: CHEST PA/LAT (2 VIEW) INDICATION: Pneumonia. COMPARISON: Chest radiograph 12/02/2018. FINDINGS: Low lung volumes. Mild right basilar atelectasis or infiltrate, similar to the prior exam. Normal heart size and central pulmonary vascularity. No pleural effusion or pneumothorax. No acute osseous findings. IMPRESSION: Stable mild right basilar atelectasis or infiltrate. Dictated by: Dictated on workstation # [id number]
[2018-12-04] MEDS: NS IV 1000 ML 1,000 ML IV SCH ×3 (11:04→21:47)
--- NOTE | 2018-12-04 11:43 | Progress Note-Hospitalist ---
Subjective HPI/CC On Admission Date Seen by Provider: Dec 04, 2018 Time Seen by Provider: 11:00 Chief complaint: Fever with chills HPI: This is a 73yoWM clinic Pt of mine that I just discharged the day before after a short hospital course for right lower lobe early pneumonia atelectasis in addition to UTI that ended up culture less than 10,000 enterococcus so he was placed on Augmentin and overall he was maintained compliance with those antibiotics but while visiting his who is inpatient rehab he began having fever and chills and temperature went up to 103, having nausea and vomiting he was sent up to the ER found to have sepsis. Pt was given aggressive IV fluids and empiric antibiotics of Zosyn and Vancomycin and close monitoring by Dr. Coleman, Dr. Curiel and Dr. Liu. He never had any bladder infections before but this seems to be a urological issue that will be addressed by Dr. Liu. Subjective/Events-last exam Patient had a 102.4 fever with rigors and chills last night at 1030 I pancultured and placed him back on vancomycin and Zosyn in addition to the Levaquin p.o. he is taking every day at 11:00 Major concern for the fever of unknown origin and the fact that every evening at about 830 or 10 PM he has the episode of fever but he does not have it while being on IV antibiotics but he does have it on p.o. antibiotics Gallbladder shows gallstones so we will obtain ultrasound to evaluate for cholecystitis but he does not have any abdominal pain CT scan will be reviewed after completed to further evaluate if the lung mass is an abscess or not since he cannot really have a biopsy if it is an abscess Updated patient and daughter regarding the plan IV fluids were given for elevated lactic acid and blood pressure has been stable although holding some blood pressure medications because it is slightly lower than his normal but not enough for septic shock or severe sepsis criteria No nausea or vomiting Was feeling great until he had a fever episode Conferred with Dr. Coleman and will have Dr. Curiel see him and I updated him on the microbiology calling me with blood cultures that are already growing gram- negative rods that were obtained just last night out of all bottles so he will perform a transesophageal echocardiogram to evaluate for endocarditis since it is a fever of unknown origin Review of Systems General: Fatigue, Malaise Focused Exam Lactate Level 12/03/18 23:00: Lactic Acid Level 2.11*H 12/04/18 00:55: Lactic Acid Level 2.15*H Objective Exam Vital Signs Vital Signs Date Time Temp Pulse Resp B/P (MAP) Pulse Ox O2 Delivery O2 Flow Rate FiO2 12/04/18 12:00 96.4 68 20 110/50 (70) 94 Room Air 12/02/18 12:00 2.00 Capillary Refill : Less Than 3 Seconds General Appearance: No Apparent Distress, WD/WN, Chronically ill, Obese HEENT: PERRL/EOMI, Normal ENT Inspection, Pharynx Normal, Moist Mucous Membranes Neck: Full Range of Motion, Normal Inspection, Non Tender Respiratory: Chest Non Tender, No Accessory Muscle Use, No Respiratory Distress, Crackles (RLL) Cardiovascular: Regular Rate, Rhythm, No Edema, No Gallop, No JVD, No Murmur, Normal Peripheral Pulses Gastrointestinal: Normal Bowel Sounds, No Organomegaly, No Pulsatile Mass, Non Tender, Soft Back: Normal Inspection, No CVA Tenderness, No Vertebral Tenderness Extremity: Normal Capillary Refill, Normal Inspection, Normal Range of Motion, Non Tender, No Calf Tenderness, No Pedal Edema Neurologic/Psychiatric: Alert, Oriented x3, No Motor/Sensory Deficits, Normal Mood/Affect Skin: Normal Color, Warm/Dry Lymphatic: No Adenopathy Results/Procedures Lab Laboratory Tests 12/04/18 09:04 Patient resulted labs reviewed. Assessment/Plan Assessment and Plan Assess & Plan/Chief Complaint Assessment: Sepsis with recurrent fever and rigors at 5814-3199 every night when off PO abx now with gram negative rods on BCx from last night already maintained on Levaquin PO and Zosyn in addition to Vanc until final cultures are completed and will undergo repeat CT scan of chest since crackles in RLL and mass in RUL may be abscess and cannot obtain biopsy Thursday if abscess and will undergo XIN per Dr Curiel UTI? All UCX negative thus far Prostatitis Enlarged prostate on CT scan placed on PO Levaquin COPD Right upper lung nodule suspicious for neoplasm set for biopsy Thursday but may not be able to if abscess and bacteremia DM HTN HLP JULIAN BPH Plan: Monitor closely IV abx Vanc and Zosyn XIN by Dr Curiel to check for endocarditis Levaquin PO to remain double coverage for gram negative bacteremia Conferred with Dr Curiel and I appreciate his help and Dr Coleman's CT guided needle biopsy right upper lung mass on Thursday by Dr Amezquita if no abscess suspected Diagnosis/Problems Diagnosis/Problems (1) FUO (fever of unknown origin) Status: Acute (2) Gram-negative bacteremia Status: Acute (3) Prostatitis, acute Status: Acute (4) UTI (urinary tract infection) Status: Acute Qualifiers: Urinary tract infection type: acute cystitis Hematuria presence: without hematuria Qualified Codes: N30.00 - Acute cystitis without hematuria (5) Sepsis Status: Acute Qualifiers: Sepsis type: sepsis due to unspecified organism Qualified Codes: A41.9 - Sepsis, unspecified organism (6) Diabetes mellitus, insulin dependent (IDDM), controlled Status: Chronic (7) JULIAN on CPAP Status: Chronic (8) COPD with exacerbation Status: Chronic (9) Hypertension Status: Chronic Qualifiers: Hypertension type: essential hypertension Qualified Codes: I10 - Essential (primary) hypertension (10) GERD (gastroesophageal reflux disease) Status: Chronic Qualifiers: Esophagitis presence: without esophagitis Qualified Codes: K21.9 - Gastro- esophageal reflux disease without esophagitis (11) Vitamin B 12 deficiency Status: Chronic (12) Osteoarthritis Status: Chronic Qualifiers: Osteoarthritis location: unspecified site Osteoarthritis type: unspecified Qualified Codes: M19.90 - Unspecified osteoarthritis, unspecified site (13) Hyperlipidemia Status: Chronic Qualifiers: Hyperlipidemia type: mixed hyperlipidemia Qualified Codes: E78.2 - Mixed hyperlipidemia (14) Fever Status: Resolved Qualifiers: Fever type: unspecified Qualified Codes: R50.9 - Fever, unspecified Resolution Date/Time: 12/02/18 @ 20:38 (15) Mass of upper lobe of right lung Status: Acute Clinical Quality Measures DVT/VTE Risk/Contraindication: Risk Factor Score Per Nursin RFS Level Per Nursing on Admit: 4+=Very High RAMEZ NGO DO Dec 04, 2018 11:43
[2018-12-04] MEDS ORDERED: NS 100 ML (IVPB) BAG IV ONE (12:15)
[2018-12-04] MEDS ORDERED: HOLD METFORMIN - RECEIVED CONTRAST 20 ML VIAL IV SCH (12:15)
[2018-12-04] MEDS ORDERED: CATHETER FLUSH 10 ML SYR IV PRN (12:15)
[2018-12-04] MEDS ORDERED: IOHEXOL 350 MG/ML 100 ML (OMNIPAQUE 350) VIAL IV ONE (12:15)
--- NOTE | 2018-12-04 13:17 | Diagnostic Imaging Report ---
PROCEDURE: CT angiography of the abdomen and chest with and without contrast. TECHNIQUE: After intravenous administration of contrast, thin section axial CT angiography of the abdomen and chest were obtained. Multiple MIP reformats were provided. Auto Exposure Controls were utilized during the CT exam to meet ALARA standards for radiation dose reduction. INDICATION: Pneumonia or vomiting. FINDINGS: The previous CTA chest, abdomen and pelvis exam of 11/30/2018 noted a mass involving the right upper lung. That finding is again evident and no different. I would concur with the opinion of the prior exam that this mass should be considered neoplastic until proven otherwise. In the interval since the previous exam, mild atelectasis/pneumonia has developed in the right infrahilar region. The lungs are otherwise generally clear. There is no defect within the pulmonary arteries to indicate a pulmonary embolus. The aorta is not abnormally dilated and there is no sign of a dissection. The heart is stable in size. Coronary artery calcifications are again noted. There is no significant mediastinal or hilar adenopathy. The thyroid gland where visualized is unremarkable The sections through the upper abdomen again show that the liver and spleen are enlarged. There is also cholelithiasis but there is no evidence for acute cholecystitis. The pancreas, the adrenals, the kidneys, the aorta and inferior vena cava show no sign of an acute abnormality. The vena cava filter seen previously is again evident and there is no abdominal mass or free fluid collection evident. The stomach is not well distended and difficult to assess. The bone windows show no sign of fracture or destructive lesion. The postsurgical changes involving the lower lumbar spine are again visualized. IMPRESSION: 1. In the interval since the prior study, mild atelectasis/infiltrate has developed in the right infrahilar region. There is no acute cardiopulmonary abnormality noted otherwise. 2. The mass in the right apex seen previously is again evident. This finding is worrisome for neoplasm. 3. The sections through the abdomen again show hepatomegaly and cholelithiasis. There is no acute abnormality noted. Dictated by: Dictated on workstation # [id number]
[2018-12-04] MEDS: IBUPROFEN 600 MG (MOTRIN) TAB PO PRN (13:24)
[2018-12-04] MEDS: PIPERACILLIN/TAZO 4.5 GM/NS 100 ML IV SCH ×2 (15:55)
[2018-12-05] VITALS (11 sets, daily range): BP systolic 116–186; BP diastolic 60–112
[2018-12-05] MEDS: PIPERACILLIN/TAZO 4.5 GM/NS 100 ML IV SCH ×8 (00:43→23:17)
--- NOTE | 2018-12-05 06:16 | Pulmonary Progress Note ---
Subjective Time Seen by a Provider: 08:05 Subjective/Events-last exam Pt is doing better. Sepsis Event Evaluation Height, Weight, BMI Height: 6'7.00" Weight: 359lbs. 7.0oz. 163.529501zz; 42.8 BMI Method:Actual Focused Exam Lactate Level 12/03/18 23:00: Lactic Acid Level 2.11*H 12/04/18 00:55: Lactic Acid Level 2.15*H Exam Exam Vital Signs Date Time Temp Pulse Resp B/P (MAP) Pulse Ox O2 Delivery O2 Flow Rate FiO2 12/05/18 03:57 98.0 69 18 120/60 (80) 92 Room Air 12/04/18 23:57 97.7 85 18 127/62 (83) 92 Room Air 12/04/18 20:00 Room Air 12/04/18 19:35 97.4 69 18 114/60 (78) 94 Room Air 12/04/18 15:48 98.2 65 16 116/62 (80) 92 Room Air 12/04/18 12:00 96.4 68 20 110/50 (70) 94 Room Air 12/04/18 09:00 Room Air 12/04/18 08:00 96.8 70 20 119/63 (81) 94 Room Air 12/04/18 06:56 70 111/55 (73) 91 I & O 12/05/18 07:00 Intake Total 4004 ml Output Total 1600 ml Balance 2404 ml Height & Weight Height: 6'7.00" Weight: 359lbs. 7.0oz. 163.382659js; 42.8 BMI Method:Actual General Appearance: No Apparent Distress, WD/WN, Chronically ill, Obese HEENT: PERRL/EOMI, Normal ENT Inspection, Pharynx Normal, Moist Mucous Membranes Neck: Full Range of Motion, Normal Inspection, Non Tender Respiratory: Chest Non Tender, No Accessory Muscle Use, No Respiratory Distress, Crackles (RLL) Cardiovascular: Regular Rate, Rhythm, No Edema, No Gallop, No JVD, No Murmur, Normal Peripheral Pulses Capillary Refill: Less Than 3 Seconds Gastrointestinal: normal bowel sounds, non tender, soft Extremity: Normal Capillary Refill, Normal Inspection, Normal Range of Motion, Non Tender, No Calf Tenderness, No Pedal Edema Neurologic/Psychiatric: Alert, Oriented x3, No Motor/Sensory Deficits, Normal Mood/Affect Skin: Normal Color, Warm/Dry Lymphatic: No Adenopathy Results Lab Laboratory Tests 12/04/18 09:04 Assessment/Plan Assessment/Plan UTI with sepsis -Abx changed to Merrem -Diaz cultured Bacteremia with Ecoli -Continue Zosyn could probably stop Vanco if OK with Dr. Da Silva. -Plan is for XIN per cardio --CHeck RUQ US secondary to cholelithiasis Metabolic lactic acidosis -Will give a liter bolus of NS and increase IVF to 150 -Increase IVF to 150 for now Lung mass -PET scan is scheduled at [place] for December - hold off on CT bx scheduled for Thursday secondary to infection -Postpone to next week -Will need close F/u as out pt DM -restart home insulin MICHELLE AMADO DO Dec 05, 2018 06:16
[2018-12-05] MEDS: NS IV 1000 ML 1,000 ML IV SCH (06:39)
[2018-12-05] MEDS: inSUlin ASPART (NovoLOG) 1 UNIT/0.01 ML (CHARGE PER UNIT) SC SCH ×3 (06:53→18:13)
[2018-12-05] MEDS: ENOXAPARIN 40 MG/0.4 ML (LOVENOX) SYR SC SCH ×2 (06:53→18:13)
[2018-12-05] MEDS: CYANOCOBALAMIN 1,000 MCG (VITAMIN B-12) TABLET PO SCH (06:54)
[2018-12-05] MEDS: PIOGLITAZONE 30MG (ACTOS) TAB PO SCH (06:54)
[2018-12-05] MEDS ORDERED: TROUGH ORDER-PHARMACY XX NR (07:00)
[2018-12-05 07:09] LABS: BASOPHILS % (AUTO) 0 % (0-10); EOSINOPHILS # (AUTO) 0.1 10^3/uL (0.0-0.3); EOSINOPHILS % (AUTO) 2 % (0-10); HEMATOCRIT 31 % (40-54); HEMOGLOBIN 9.4 G/DL (13.3-17.7); LYMPHOCYTES % (AUTO) 27 % (12-44); MEAN CORPUSCULAR HEMOGLOBIN 30 PG (25-34); MEAN CORPUSCULAR HGB CONC 31 G/DL (32-36); MEAN CORPUSCULAR VOLUME 97 FL (80-99); MEAN PLATELET VOLUME 10.1 FL (7.4-10.4); MONOCYTES # (AUTO) 0.4 X 10^3 (0.0-1.0); MONOCYTES % (AUTO) 10 % (0-12); NEUTROPHILS # (AUTO) 2.3 X 10^3 (1.8-7.8); NEUTROPHILS % (AUTO) 61 % (42-75); PLATELET COUNT 87 10^3/uL (130-400); WHITE BLOOD COUNT 3.7 10^3/uL (4.3-11.0)
[2018-12-05 07:27] LABS: ALANINE AMINOTRANSFERASE 11 U/L (0-55); ALBUMIN 3.2 GM/DL (3.2-4.5); ALKALINE PHOSPHATASE 86 U/L (40-136); BILIRUBIN,TOTAL 0.8 MG/DL (0.1-1.0); BUN/CREATININE RATIO 14; CALCIUM 8.3 MG/DL (8.5-10.1); CARBON DIOXIDE 23 MMOL/L (21-32); CHLORIDE 110 MMOL/L (98-107); CREATININE SERUM 0.84 MG/DL (0.60-1.30); GFR ESTIMATED > 60; GLUCOSE 220 MG/DL (70-105); SODIUM 140 MMOL/L (135-145); TOTAL PROTEIN 5.6 GM/DL (6.4-8.2)
[2018-12-05 07:33] LABS: VANCOMYCIN,TROUGH 14.2 UG/ML (10.0-20.0)
[2018-12-05] MEDS: VANCOMYCIN 2000 MG/NS 500 ML IVPB IV SCH ×4 (08:40→20:19)
[2018-12-05] MEDS ORDERED: MIDAZOLAM 5 MG/5 ML (VERSED) VIAL ONE (09:09)
[2018-12-05] MEDS ORDERED: fentaNYL INJECTION 100 MCG/2 ML AMP ONE (09:09)
[2018-12-05] MEDS ORDERED: LIDOCAINE 2% VISCOUS 15 ML UDC ONE (09:10)
[2018-12-05] MEDS ORDERED: NS IV 1000 ML 1,000 ML IV ONE (09:18)
[2018-12-05] MEDS ORDERED: LIDOCAINE 2% VISCOUS 15 ML UDC PO ONE (09:30)
[2018-12-05] MEDS ORDERED: fentaNYL INJECTION 100 MCG/2 ML AMP IV ONE (09:30)
[2018-12-05] MEDS ORDERED: MIDAZOLAM 5 MG/5 ML (VERSED) VIAL IV ONE (09:30)
--- NOTE | 2018-12-05 09:55 | NUR ---
PT TAKEN OFF FLOOR FOR PROCEDURE
--- NOTE | 2018-12-05 11:21 | Progress Note-Cardiology ---
Cardiology SOAP Progress Note Subjective: Gen malaise as before No cp or palp or syncope Chronic, moderate, exertional shortness of breath Objective: I&O/Vital Signs 12/04/18 12/05/18 12/05/18 12/05/18 23:57 03:57 08:00 08:00 Temp 97.7 98.0 97.6 Pulse 85 69 70 Resp 18 18 18 B/P (MAP) 127/62 (83) 120/60 (80) 127/60 (82) Pulse Ox 92 92 91 O2 Delivery Room Air Room Air Room Air Room Air 12/05/18 12/05/18 12/05/18 12/05/18 10:02 10:14 10:18 10:18 Pulse 69 75 Resp 18 18 B/P (MAP) 147/73 (97) Pulse Ox 98 99 97 O2 Delivery Room Air Nasal Cannula Room Air Nasal Cannula O2 Flow Rate 3.00 4.00 12/05/18 12/05/18 12/05/18 12/05/18 10:22 10:22 10:26 10:30 Pulse 88 82 77 Resp 18 18 16 B/P (MAP) 182/112 (135) 169/83 (111) Pulse Ox 96 95 97 O2 Delivery Nasal Cannula Room Air Nasal Cannula Nasal Cannula O2 Flow Rate 4.00 6.00 6.00 12/05/18 12/05/18 12/05/18 10:31 10:38 10:48 Pulse 74 74 76 Resp 18 18 18 B/P (MAP) 145/84 (104) 140/69 (92) Pulse Ox 98 98 98 O2 Delivery Nasal Cannula Nasal Cannula Room Air O2 Flow Rate 5.00 5.00 12/05/18 00:00 Intake Total 3654 ml Output Total 1600 ml Balance 2054 ml Weight (Pounds): 369 Weight (Ounces): 8.2 Weight (Calculated Kilograms): 167.788240 Constitutional: AAO x 3, well-developed, well-nourished Respiratory: No accessory muscle use; lungs clear to percussion Cardiovascular: regular rate-rhythm, S1 and S2, systolic murmur (faint LENNOX at card base) Gastrointestional: No tender; soft; No guarding, No rebound; audible bowel sounds Extremities: swelling (mild edema of the legs); No clubbing, No cyanosis Neurologic/Psychiatric: grossly intact Skin: No rash on exposed areas, No ulcerations on exposed areas Results/Procedures: Labs Laboratory Tests 12/04/18 11:22: Glucometer 205H 12/04/18 16:42: Glucometer 86 12/04/18 21:42: Glucometer 83 12/05/18 06:00: Glucometer 218H 12/05/18 07:00: White Blood Count 3.7L, Red Blood Count 3.17L, Hemoglobin 9.4L, Hematocrit 31L, Mean Corpuscular Volume 97, Mean Corpuscular Hemoglobin 30, Mean Corpuscular Hemoglobin Concent 31L, Red Cell Distribution Width 18.0H, Platelet Count 87L, Mean Platelet Volume 10.1, Neutrophils (%) (Auto) 61, Lymphocytes (%) (Auto) 27, Monocytes (%) (Auto) 10, Eosinophils (%) (Auto) 2, Basophils (%) (Auto) 0, Neutrophils # (Auto) 2.3, Lymphocytes # (Auto) 1.0, Monocytes # (Auto) 0.4, Eosinophils # (Auto) 0.1, Basophils # (Auto) 0.0, Sodium Level 140, Potassium Level 4.0, Chloride Level 110H, Carbon Dioxide Level 23, Anion Gap 7, Blood Urea Nitrogen 12, Creatinine 0.84, Estimat Glomerular Filtration Rate > 60, BUN/Creatinine Ratio 14, Glucose Level 220H, Calcium Level 8.3L, Corrected Calcium 8.9, Total Bilirubin 0.8, Aspartate Amino Transf (AST/SGOT) 12, Alanine Aminotransferase (ALT/SGPT) 11, Alkaline Phosphatase 86, Total Protein 5.6L, Albumin 3.2, Vancomycin Level Trough 14.2 12/05/18 11:03: Glucometer 195H Microbiology 12/03/18 Blood Culture - Preliminary, Resulted No growth 11/30/18 Urine Culture - Final, Complete NO GROWTH Laboratory Tests 12/04/18 09:04 12/05/18 07:00 A/P: Assessment: UTI with sepsis (recurrent sepsis), managed by Dr Da Silva Pulm lesion/mass, managed by Dr Da Silva and Dr Coleman H/o COPD JULIAN Type 2 [place] (mild troponin elevation during earlier admission of 11/26/18) Mild anemia of undetermined etiology, managed by Dr Da Silva Hypertension, by history Hyperlipidemia, by history Diabetes mellitus II, followed and managed by primary care physician Obesity, BMI is approx 41 H/o large pulmonary embolism in the early 1999s; h/o IVC filter in TTE of 12/04/18: LVEF 55-65%, grade 2 diastolic dysfunction of LV, PASP 52 mmHg, no evidence of endocarditis. XIN of 12/05/18: normal LVEF, tiny PFO with tiny L to R shunt, mild MR, no evidence of endocarditis Plan: * I discussed echo results with Dr Da Silva * Source of bacteremia does not appear to be any endocarditis * Dr Da Silva managing sepsis and bacteremia * Monitor closely EDWIGE MORALES MD FACP FAC CCDS Dec 05, 2018 11:21
--- NOTE | 2018-12-05 11:36 | Progress Note-Hospitalist ---
Subjective HPI/CC On Admission Date Seen by Provider: Dec 05, 2018 Time Seen by Provider: 11:30 Chief complaint: Fever with chills HPI: This is a 73yoWM clinic Pt of mine that I just discharged the day before after a short hospital course for right lower lobe early pneumonia atelectasis in addition to UTI that ended up culture less than 10,000 enterococcus so he was placed on Augmentin and overall he was maintained compliance with those antibiotics but while visiting his who is inpatient rehab he began having fever and chills and temperature went up to 103, having nausea and vomiting he was sent up to the ER found to have sepsis. Pt was given aggressive IV fluids and empiric antibiotics of Zosyn and Vancomycin and close monitoring by Dr. Coleman, Dr. Curiel and Dr. Liu. He never had any bladder infections before but this seems to be a urological issue that will be addressed by Dr. Liu. Subjective/Events-last exam Patient did well overnight Max fever 99 last night Transesophageal echocardiogram was normal per Dr. Curiel this morning Patient is still low but drowsy from the sedation but overall feels good and wants to eat lunch Had a bowel movement yesterday Require oxygen now so we'll hep-locked IV fluid to prevent any volume overload Left leg wound still hasn't healed and I had evaluated that to have no cellulitis but does have some drainage may need Dr. Stout consult Questionable lung mass biopsy pending for tomorrow considering Escherichia coli bacteremia and those cultures are pending at time of this dictation White count is actually down along with platelet count so we will need to watch that closely We'll get him walking around and eating and drinking today. Review of Systems General: Fatigue Focused Exam Lactate Level 12/03/18 23:00: Lactic Acid Level 2.11*H 12/04/18 00:55: Lactic Acid Level 2.15*H Objective Exam Vital Signs Vital Signs Date Time Temp Pulse Resp B/P (MAP) Pulse Ox O2 Delivery O2 Flow Rate FiO2 12/05/18 12:00 97.0 70 18 116/63 (80) 94 Room Air 12/05/18 10:38 5.00 Capillary Refill : Less Than 3 Seconds General Appearance: No Apparent Distress, WD/WN, Chronically ill, Obese HEENT: PERRL/EOMI, Normal ENT Inspection, Pharynx Normal, Moist Mucous Membrane s Neck: Full Range of Motion, Normal Inspection, Non Tender Respiratory: Chest Non Tender, No Accessory Muscle Use, No Respiratory Distress, Crackles (RLL), Decreased Breath Sounds Cardiovascular: Regular Rate, Rhythm, No Edema, No Gallop, No JVD, No Murmur, Normal Peripheral Pulses Gastrointestinal: Normal Bowel Sounds, No Organomegaly, No Pulsatile Mass, Non Tender, Soft Back: Normal Inspection, No CVA Tenderness, No Vertebral Tenderness Extremity: Normal Capillary Refill, Normal Inspection, Normal Range of Motion, Non Tender, No Calf Tenderness, No Pedal Edema Neurologic/Psychiatric: Alert, Oriented x3, No Motor/Sensory Deficits, Normal Mood/Affect Skin: Normal Color, Warm/Dry, Other (Left leg mid tibia wound skin tear with moist granulation tissue) Lymphatic: No Adenopathy Results/Procedures Lab Laboratory Tests 12/05/18 07:00 Patient resulted labs reviewed. Assessment/Plan Assessment and Plan Assess & Plan/Chief Complaint Assessment: Sepsis with recurrent fever and rigors at 5545-1547 every night when off PO abx now with gram negative rods on BCx from Thursday night already maintained on Levaquin PO and Zosyn in addition to Vanc but Vanc DC today and still awaiting final cultures are completed and s/p repeat CT scan of chest since crackles in RLL and mass in RUL may be abscess and cannot obtain biopsy Thursday if abscess and underwent XIN per Dr Curiel today which was normal and no evidence of any endocarditis Atelectasis on right lower lobe on CT scan UTI? All UCX negative thus far Prostatitis Enlarged prostate on CT scan placed on PO Levaquin COPD Right upper lung nodule suspicious for neoplasm set for biopsy Thursday but may not be able to if abscess and bacteremia DM HTN HLP JULIAN BPH Plan: Monitor closely IV abx Zosyn with PO Levaquin s/p XIN by Dr Curiel to check for endocarditis Levaquin PO to remain double coverage for gram negative bacteremia Conferred with Dr Curiel and I appreciate his help and Dr Coleman's CT guided needle biopsy right upper lung mass on Thursday by Dr Amezquita if no abscess suspected Diagnosis/Problems Diagnosis/Problems (1) FUO (fever of unknown origin) Status: Acute (2) Gram-negative bacteremia Status: Acute (3) Prostatitis, acute Status: Acute (4) UTI (urinary tract infection) Status: Acute Qualifiers: Urinary tract infection type: acute cystitis Hematuria presence: without hematuria Qualified Codes: N30.00 - Acute cystitis without hematuria (5) Sepsis Status: Acute Qualifiers: Sepsis type: sepsis due to unspecified organism Qualified Codes: A41.9 - Sepsis, unspecified organism (6) Diabetes mellitus, insulin dependent (IDDM), controlled Status: Chronic (7) JULIAN on CPAP Status: Chronic (8) COPD with exacerbation Status: Chronic (9) Hypertension Status: Chronic Qualifiers: Hypertension type: essential hypertension Qualified Codes: I10 - Essential (primary) hypertension (10) GERD (gastroesophageal reflux disease) Status: Chronic Qualifiers: Esophagitis presence: without esophagitis Qualified Codes: K21.9 - Gastro- esophageal reflux disease without esophagitis (11) Vitamin B 12 deficiency Status: Chronic (12) Osteoarthritis Status: Chronic Qualifiers: Osteoarthritis location: unspecified site Osteoarthritis type: unspecified Qualified Codes: M19.90 - Unspecified osteoarthritis, unspecified site (13) Hyperlipidemia Status: Chronic Qualifiers: Hyperlipidemia type: mixed hyperlipidemia Qualified Codes: E78.2 - Mixed hyperlipidemia (14) Fever Status: Resolved Qualifiers: Fever type: unspecified Qualified Codes: R50.9 - Fever, unspecified Resolution Date/Time: 12/02/18 @ 20:38 (15) Mass of upper lobe of right lung Status: Acute Clinical Quality Measures DVT/VTE Risk/Contraindication: Risk Factor Score Per Nursin RFS Level Per Nursing on Admit: 4+=Very High RAMEZ NGO DO Dec 05, 2018 11:36
[2018-12-05] MEDS: OMEGA 3 (FISH OIL) 1000 MG CAP PO SCH (12:22)
[2018-12-05] MEDS: SERTRALINE 100 MG (ZOLOFT) TAB PO SCH (12:22)
[2018-12-05] MEDS: LORATADINE (CLARITIN) 10 MG TAB PO SCH (12:23)
[2018-12-05] MEDS: LEVOFLOXACIN 500 MG TAB (LEVAQUIN) PO SCH (12:23)
[2018-12-05] MEDS: TAMSULOSIN 0.4 MG (FLOMAX) CAP PO SCH (12:23)
[2018-12-05] MEDS: LOSARTAN 100 MG (COZAAR) TABLET PO SCH (12:23)
[2018-12-05] MEDS: PANTOPRAZOLE 20 MG TABLET (PROTONIX) PO SCH (12:23)
[2018-12-05] MEDS: ASPIRIN E.C. 81 MG (ECOTRIN) TAB PO SCH (12:23)
[2018-12-05] MEDS: MELOXICAM 7.5 MG (MOBIC) TABLET PO SCH (12:23)
[2018-12-05] MEDS: FINASTERIDE (PROSCAR) 5 MG TAB PO SCH (12:31)
[2018-12-05] MEDS: SILVER SULFADIAZINE 50 GM CREAM TOP SCH (12:34)
[2018-12-05] MEDS: BETAMETHASONE/CLOTRIM CREAM (LOTRISONE) 45 GM TP SCH ×2 (12:35→20:57)
[2018-12-05] MEDS: ONDANSETRON 4 MG/2 ML (SDV) Z0FRAN IV PRN (20:46)
[2018-12-05] MEDS: IBUPROFEN 600 MG (MOTRIN) TAB PO PRN (20:46)
[2018-12-06 04:00] VITALS: BP 151/71
[2018-12-06] MEDS: PIPERACILLIN/TAZO 4.5 GM/NS 100 ML IV SCH ×2 (06:34)
[2018-12-06] MEDS: PIOGLITAZONE 30MG (ACTOS) TAB PO SCH (06:35)
[2018-12-06] MEDS: CYANOCOBALAMIN 1,000 MCG (VITAMIN B-12) TABLET PO SCH (06:36)
[2018-12-06] MEDS: inSUlin ASPART (NovoLOG) 1 UNIT/0.01 ML (CHARGE PER UNIT) SC SCH ×3 (06:37→15:50)
[2018-12-06] MEDS: ENOXAPARIN 40 MG/0.4 ML (LOVENOX) SYR SC SCH ×2 (06:38→17:00)
[2018-12-06] MEDS ORDERED: TROUGH ORDER-PHARMACY XX NR (07:00)
[2018-12-06 08:00] VITALS: BP 133/65
[2018-12-06 08:02] LABS: BASOPHILS % (AUTO) 0 % (0-10); EOSINOPHILS # (AUTO) 0.1 10^3/uL (0.0-0.3); EOSINOPHILS % (AUTO) 1 % (0-10); HEMATOCRIT 30 % (40-54); HEMOGLOBIN 9.2 G/DL (13.3-17.7); LYMPHOCYTES % (AUTO) 19 % (12-44); MEAN CORPUSCULAR HEMOGLOBIN 29 PG (25-34); MEAN CORPUSCULAR HGB CONC 30 G/DL (32-36); MEAN CORPUSCULAR VOLUME 97 FL (80-99); MEAN PLATELET VOLUME 10.1 FL (7.4-10.4); MONOCYTES # (AUTO) 0.4 X 10^3 (0.0-1.0); MONOCYTES % (AUTO) 8 % (0-12); NEUTROPHILS # (AUTO) 3.7 X 10^3 (1.8-7.8); NEUTROPHILS % (AUTO) 71 % (42-75); PLATELET COUNT 95 10^3/uL (130-400); RED CELL DISTRIBUTION WIDTH 18.7 % (10.0-14.5); WHITE BLOOD COUNT 5.2 10^3/uL (4.3-11.0)
[2018-12-06 08:21] LABS: BUN/CREATININE RATIO 9; CALCIUM 8.3 MG/DL (8.5-10.1); CARBON DIOXIDE 23 MMOL/L (21-32); CHLORIDE 109 MMOL/L (98-107); CREATININE SERUM 0.76 MG/DL (0.60-1.30); GFR ESTIMATED > 60; GLUCOSE 148 MG/DL (70-105); MAGNESIUM 1.8 MG/DL (1.8-2.4); POTASSIUM 3.9 MMOL/L (3.6-5.0); SODIUM 139 MMOL/L (135-145)
[2018-12-06] MEDS: MELOXICAM 7.5 MG (MOBIC) TABLET PO SCH (08:23)
[2018-12-06] MEDS: LORATADINE (CLARITIN) 10 MG TAB PO SCH (08:23)
[2018-12-06] MEDS: FINASTERIDE (PROSCAR) 5 MG TAB PO SCH (08:23)
[2018-12-06] MEDS: ASPIRIN E.C. 81 MG (ECOTRIN) TAB PO SCH (08:23)
[2018-12-06] MEDS: PANTOPRAZOLE 20 MG TABLET (PROTONIX) PO SCH (08:23)
[2018-12-06] MEDS: SERTRALINE 100 MG (ZOLOFT) TAB PO SCH (08:23)
[2018-12-06] MEDS: TAMSULOSIN 0.4 MG (FLOMAX) CAP PO SCH (08:23)
[2018-12-06] MEDS: OMEGA 3 (FISH OIL) 1000 MG CAP PO SCH (08:23)
[2018-12-06] MEDS: SILVER SULFADIAZINE 50 GM CREAM TOP SCH (08:25)
[2018-12-06] MEDS: BETAMETHASONE/CLOTRIM CREAM (LOTRISONE) 45 GM TP SCH ×2 (08:25→21:25)
[2018-12-06] MEDS: VANCOMYCIN 2000 MG/NS 500 ML IVPB IV SCH ×2 (08:32)
--- NOTE | 2018-12-06 09:06 | Diagnostic Imaging Report ---
PROCEDURE: US abdomen complete. TECHNIQUE: Multiple real-time grayscale images were obtained over the abdomen in various projections. INDICATION: Cholelithiasis and fever. The liver is enlarged at 27 cm. No discrete liver mass is identified. Portal vein is patent and shows normal direction of flow. There appear to be multiple small stones as well as sludge in the gallbladder. No wall thickening is seen. No pericholecystic fluid or biliary ductal dilatation is seen. Pancreas was obscured by bowel gas. The spleen is significantly enlarged measuring up to nearly 27 cm. Aorta was obscured by bowel gas. Right kidney does contain a 3.9 cm cyst in the upper pole. Both kidneys are somewhat enlarged. There is no calculi or hydronephrosis. There is no ascites. IMPRESSION: 1. Hepatosplenomegaly. 2. Cholelithiasis and gallbladder sludge without evidence of acute cholecystitis. 3. Right renal cyst. Dictated by: Dictated on workstation # [id number]
--- NOTE | 2018-12-06 10:15 | Progress Note-Hospitalist ---
Subjective HPI/CC On Admission Date Seen by Provider: Dec 06, 2018 Time Seen by Provider: 10:00 Chief complaint: Fever with chills HPI: This is a 73yoWM clinic Pt of mine that I just discharged the day before after a short hospital course for right lower lobe early pneumonia atelectasis in addition to UTI that ended up culture less than 10,000 enterococcus so he was placed on Augmentin and overall he was maintained compliance with those antibiotics but while visiting his who is inpatient rehab he began having fever and chills and temperature went up to 103, having nausea and vomiting he was sent up to the ER found to have sepsis. Pt was given aggressive IV fluids and empiric antibiotics of Zosyn and Vancomycin and close monitoring by Dr. Coleman, Dr. Curiel and Dr. Liu. He never had any bladder infections before but this seems to be a urological issue that will be addressed by Dr. Liu. Subjective/Events-last exam Pt ran another low grade fever last night. Fever of unknown origin is becoming very concerning. Abdominal ultrasound showed gallstones but no evidence of cholecystitis but will consult Dr. Hernandes to evaluate. Will consult Dr. Larson for hematology since he did have leukopenia and continues to have thrombocytopenia to evaluate for any source of the fever. I did speak with infectious disease Dr. Moreira at [facility] and reviewed the entire case, he is convinced it is genitourinary likely prostatitis so I will order renal ultrasound that was added onto the gallbladder ultrasound this morning in addition I will switch his antibiotic of Vancomycin, Zosyn and Levaquin to Meropenem and since possibly its ESBL E. Coli and that sensitivity will not be back until tomorrow after I spoke with microbiology twice today. No nausea or vomiting. No abdominal pain. No other source of infection. I did review urine culture from [facility] showing Levaquin and Cipro resistance so that could certainly be part of the process. PSA will be added for presumed prostatitis to confirm our suspicion. Bactrim likely will be a good option pending the ESBL status of the E. Coli tomorrow on the blood cultures. Updated Pt on all of these events along with nursing staff. Pt otherwise doing well. Review of Systems General: Fatigue, Malaise Focused Exam Lactate Level 12/03/18 23:00: Lactic Acid Level 2.11*H 12/04/18 00:55: Lactic Acid Level 2.15*H Objective Exam Vital Signs Vital Signs Date Time Temp Pulse Resp B/P (MAP) Pulse Ox O2 Delivery O2 Flow Rate FiO2 12/06/18 19:09 97.6 75 18 160/71 (100) 95 Nasal Cannula 2.00 Capillary Refill : Less Than 3 Seconds General Appearance: No Apparent Distress, WD/WN, Chronically ill, Obese HEENT: PERRL/EOMI, Normal ENT Inspection, Pharynx Normal, Moist Mucous Membranes Neck: Full Range of Motion, Normal Inspection, Non Tender Respiratory: Chest Non Tender, No Accessory Muscle Use, No Respiratory Distres s, Crackles (RLL) Cardiovascular: Regular Rate, Rhythm, No Edema, No Gallop, No JVD, No Murmur, Normal Peripheral Pulses Gastrointestinal: Normal Bowel Sounds, No Organomegaly, No Pulsatile Mass, Non Tender, Soft Back: Normal Inspection, No CVA Tenderness, No Vertebral Tenderness Extremity: Normal Capillary Refill, Normal Inspection, Normal Range of Motion, Non Tender, No Calf Tenderness, No Pedal Edema Neurologic/Psychiatric: Alert, Oriented x3, No Motor/Sensory Deficits, Normal Mood/Affect Skin: Normal Color, Warm/Dry Lymphatic: No Adenopathy Results/Procedures Lab Laboratory Tests 12/06/18 07:55 Patient resulted labs reviewed. Assessment/Plan Assessment and Plan Assess & Plan/Chief Complaint Assessment: Sepsis with recurrent fever and rigors at [id number] every night when on PO abx now with gram negative rods on BCx from Thursday night already maintained on Levaquin PO and Zosyn in addition to Vanc but Vanc DC today and still awaiting final cultures are completed and s/p repeat CT scan of chest since crackles in RLL and mass in RUL may be abscess and cannot obtain biopsy Thursday if abscess and underwent XIN per Dr Curiel today which was normal and no evidence of any endocarditis- spoke to ID and prostatitis or in origin is most likely the course so changing to Meropenem and awaiting BCx E coli Atelectasis on right lower lobe on CT scan UTI? All UCX negative thus far Prostatitis Enlarged prostate on CT scan placed on PO Levaquin COPD Right upper lung nodule suspicious for neoplasm set for biopsy Thursday but may not be able to if abscess and bacteremia DM HTN HLP JULIAN BPH Plan: Monitor closely IV abx Meropenem s/p XIN by Dr Curiel to check for endocarditis which was negative CT guided needle biopsy right upper lung mass next week by Dr Amezquita if stable Consult Dr Morrison and Dr Hernandes for further evaluation PSA, repeat UA, renal USG Diagnosis/Problems Diagnosis/Problems (1) FUO (fever of unknown origin) Status: Acute (2) Gram-negative bacteremia Status: Acute (3) Prostatitis, acute Status: Acute (4) UTI (urinary tract infection) Status: Acute Qualifiers: Urinary tract infection type: acute cystitis Hematuria presence: without hematuria Qualified Codes: N30.00 - Acute cystitis without hematuria (5) Sepsis Status: Acute Qualifiers: Sepsis type: sepsis due to unspecified organism Qualified Codes: A41.9 - Sepsis, unspecified organism (6) Diabetes mellitus, insulin dependent (IDDM), controlled Status: Chronic (7) JULIAN on CPAP Status: Chronic (8) COPD with exacerbation Status: Chronic (9) Hypertension Status: Chronic Qualifiers: Hypertension type: essential hypertension Qualified Codes: I10 - Essential (primary) hypertension (10) GERD (gastroesophageal reflux disease) Status: Chronic Qualifiers: Esophagitis presence: without esophagitis Qualified Codes: K21.9 - Gastro- esophageal reflux disease without esophagitis (11) Vitamin B 12 deficiency Status: Chronic (12) Osteoarthritis Status: Chronic Qualifiers: Osteoarthritis location: unspecified site Osteoarthritis type: unspecified Qualified Codes: M19.90 - Unspecified osteoarthritis, unspecified site (13) Hyperlipidemia Status: Chronic Qualifiers: Hyperlipidemia type: mixed hyperlipidemia Qualified Codes: E78.2 - Mixed hyperlipidemia (14) Fever Status: Resolved Qualifiers: Fever type: unspecified Qualified Codes: R50.9 - Fever, unspecified Resolution Date/Time: 12/02/18 @ 20:38 (15) Mass of upper lobe of right lung Status: Acute Clinical Quality Measures DVT/VTE Risk/Contraindication: Risk Factor Score Per Nursin RFS Level Per Nursing on Admit: 4+=Very High Other: see interventions RAMEZ NGO DO Dec 06, 2018 10:15
--- NOTE | 2018-12-06 10:19 | Progress Note-Cardiology ---
Cardiology SOAP Progress Note Subjective: C/O generalized weakness and feeling "washed out". No c/o CP or palpitations. C/O mild to mod SOB. Reports nausea over night. Objective: I&O/Vital Signs 12/06/18 12/06/18 12/06/18 12/06/18 08:00 09:00 12:00 15:58 Temp 97.6 96.6 98.0 Pulse 69 69 68 Resp 18 18 20 B/P (MAP) 133/65 (87) 133/52 (79) 137/62 (87) Pulse Ox 96 93 96 92 O2 Delivery Nasal Cannula Room Air Nasal Cannula Room Air O2 Flow Rate 2.00 2.00 2.00 12/06/18 00:00 Intake Total 2320 ml Output Total 1750 ml Balance 570 ml Weight (Pounds): 375 Weight (Ounces): 3.2 Weight (Calculated Kilograms): 170.780975 Constitutional: AAO x 3, well-developed, well-nourished Respiratory: No accessory muscle use; lungs clear to percussion Cardiovascular: regular rate-rhythm, S1 and S2, systolic murmur (faint LENNOX at card base) Gastrointestional: No tender; soft; No guarding, No rebound; audible bowel sounds Extremities: swelling (mild edema of the legs); No clubbing, No cyanosis Neurologic/Psychiatric: grossly intact Skin: No rash on exposed areas, No ulcerations on exposed areas Results/Procedures: Labs Laboratory Tests 12/05/18 20:28: Glucometer 123H 12/06/18 05:35: Glucometer 130H 12/06/18 07:00: 12/06/18 07:55: White Blood Count 5.2, Red Blood Count 3.13L, Hemoglobin 9.2L, Hematocrit 30L, Mean Corpuscular Volume 97, Mean Corpuscular Hemoglobin 29, Mean Corpuscular Hemoglobin Concent 30L, Red Cell Distribution Width 18.7H, Platelet Count 95L, Mean Platelet Volume 10.1, Neutrophils (%) (Auto) 71, Lymphocytes (%) (Auto) 19, Monocytes (%) (Auto) 8, Eosinophils (%) (Auto) 1, Basophils (%) (Auto) 0, Neutrophils # (Auto) 3.7, Lymphocytes # (Auto) 1.0, Monocytes # (Auto) 0.4, Eosinophils # (Auto) 0.1, Basophils # (Auto) 0.0, Sodium Level 139, Potassium Level 3.9, Chloride Level 109H, Carbon Dioxide Level 23, Anion Gap 7, Blood Urea Nitrogen 7, Creatinine 0.76, Estimat Glomerular Filtration Rate > 60, BUN/Creatinine Ratio 9, Glucose Level 148H, Calcium Level 8.3L, Phosphorus Level 3.1, Magnesium Level 1.8, Vancomycin Level Trough 13.6 12/06/18 10:50: Urine Color YELLOW, Urine Clarity CLEAR, Urine pH 5, Urine Specific Carr 1.015L, Urine Protein NEGATIVE, Urine Glucose (UA) NEGATIVE, Urine Ketones NEGATIVE, Urine Nitrite NEGATIVE, Urine Bilirubin NEGATIVE, Urine Urobilinogen NORMAL, Urine Leukocyte Esterase 1+H, Urine RBC (Auto) NEGATIVE, Urine RBC NONE, Urine WBC 5-10H, Urine Squamous Epithelial Cells 2-5, Urine Crystals NONE, Urine Bacteria TRACE, Urine Casts NONE, Urine Mucus NEGATIVE, Urine Culture Indicated NO 12/06/18 11:12: Glucometer 250H 12/06/18 15:17: Glucometer 245H Microbiology 12/03/18 Blood Culture - Preliminary, Resulted No growth 12/04/18 MRSA Screen - Final, Complete MRSA not isolated 11/30/18 Urine Culture - Final, Complete NO GROWTH Procedures NAME: ISELA YEE [facility] REC#: [id number] PT STATUS: ADM IN : 1945 PHYSICIAN: MICHELLE COLEMAN DO ADMIT DATE: 11/30/18 Draft Date of Exam:12/06/18 US ABDOMEN COMPLETE [id number] PROCEDURE: US abdomen complete. TECHNIQUE: Multiple real-time grayscale images were obtained over the abdomen in various projections. INDICATION: Cholelithiasis and fever. The liver is enlarged at 27 cm. No discrete liver mass is identified. Portal vein is patent and shows normal direction of flow. There appear to be multiple small stones as well as sludge in the gallbladder. No wall thickening is seen. No pericholecystic fluid or biliary ductal dilatation is seen. Pancreas was obscured by bowel gas. The spleen is significantly enlarged measuring up to nearly 27 cm. Aorta was obscured by bowel gas. Right kidney does contain a 3.9 cm cyst in the upper pole. Both kidneys are somewhat enlarged. There is no calculi or hydronephrosis. There is no ascites. IMPRESSION: 1. Hepatosplenomegaly. 2. Cholelithiasis and gallbladder sludge without evidence of acute cholecystitis. 3. Right renal cyst. Dictated on workstation # [id number] Dict: 12/06/18 0848 Trans: 12/06/18 0905 CVB [id number] Interpreted by: LEE ANN HALE MD Electronically signed by: A/P: Assessment: UTI with sepsis (recurrent sepsis), managed by Dr Da Silva Pulm lesion/mass, managed by Dr Da Silva and Dr Coleman H/o COPD JULIAN Type 2 NH (mild troponin elevation during earlier admission of 11/26/18) Mild anemia of undetermined etiology, managed by Dr Da Silva Hypertension, by history Hyperlipidemia, by history Diabetes mellitus II, followed and managed by primary care physician Obesity, BMI is approx 41 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 XIN of 12/05/18: normal LVEF, tiny PFO with tiny L to R shunt, mild MR, no evidence of endocarditis Plan: * Dr. Keen has discussed echo results with Dr Da Silva * Source of bacteremia does not appear to be any endocarditis * Dr Da Silva managing sepsis and bacteremia * Monitor closely Physician Assessment Physician Assessment No cp or palp or syncope Chronic exertional shortness of breath Lungs: good bilat air entry Cor: reg Ext: no /c/c. Mild bilat leg swelling A&R * As documented in our note above that I updated (italics) and as noted below * Continue current regimen * Monitor labs * I discussed him the findings of TTE and XIN [employer] Dec 06, 2018 10:19 EDWIGE MORALES MD [facility] Dec 06, 2018 17:55
[2018-12-06] MEDS: LOSARTAN 100 MG (COZAAR) TABLET PO SCH (10:45)
[2018-12-06] MEDS: MEROPENEM 500 MG/SWFI 10 ML IV PUSH IV SCH ×6 (10:45→23:39)
[2018-12-06] MEDS: LEVOFLOXACIN 500 MG TAB (LEVAQUIN) PO SCH (10:47)
[2018-12-06 11:37] LABS: BILIRUBIN,URINE NEGATIVE (NEGATIVE); CLARITY,URINE CLEAR; COLOR,URINE YELLOW; GLUCOSE, URINE (UA) NEGATIVE (NEGATIVE); KETONES,URINE NEGATIVE (NEGATIVE); LEUKOCYTE ESTERASE ,URINE 1+ (NEGATIVE); NITRITE,URINE NEGATIVE (NEGATIVE); PH,URINE 5 (5-9); PROTEIN,URINE NEGATIVE (NEGATIVE); UROBILINOGEN,URINE NORMAL (NORMAL)
[2018-12-06 12:00] VITALS: BP 133/52
[2018-12-06 12:05] LABS: BACTERIA,URINE TRACE /HPF
[2018-12-06 15:58] VITALS: BP 137/62
--- NOTE | 2018-12-06 17:42 | Consultation ---
History of Present Illness History of Present Illness Patient Consulted On(pradeep/time) 12/06/18 17:37 Time Seen by Provider: 17:37 Reason for Visit: fever, low blood counts, UTI E coli sepsis History of Present Illness Mr. Plummer is a 73 year old white man admitted to the hospital for fever, UTI and blood culture on 12/03/18 grow E coli. He was discharged from hospital 12/01/18 after a short course treatment of UTI and pneumonia. He spike fever 102-103 while on antibiotics Augmentin and Microbit and readmitted on 12/03/18. He was treated with Vanco, Zosyn and Levaquine on admission. His fever is down, T max 99.8 over last 48 hrs. He is slowly feeling better. However, his blood counts were gradually decreasing. 11/26/18 WBC 9.9, Hb 11.9, Plt 155k 12/01/18 WBC 15.9, Hb 11.8, Plt 117k 12/06/18 WBC 5.2, Hb 9.2, Plt 95k Allergies and Home Medications Allergies Coded Allergies: No Known Drug Allergies (Unverified , 11/26/18) Home Medications Albuterol Sulfate 1 Puff Puff, 2 PUFF INH Q4H PRN for SHORTNESS OF BREATH, (Reported) Amoxicillin/Potassium Clav 1 Each Tablet, 1 TAB PO BID, (Reported) 3 DAY SUPPLY FILLED 11-29-18 Aspirin 81 Mg Tablet.dr, 81 MG PO DAILY, (Reported) C,E,Zinc,Copper 11/Twajh5p/Lut 1 Each Capsule, 1 CAP PO DAILY, (Reported) Cetirizine HCl 10 Mg Tablet, 10 MG PO DAILY, (Reported) Clotrimazole/Betamethasone Dip 15 Gm Cream..g., 0 GM TP BID Prescribed by: RAMEZ NGO on 12/03/18 1137 Cyanocobalamin (Vitamin B-12) 2,000 Mcg Tablet, 2,000 MCG PO DAILY, (Reported) Finasteride 5 Mg Tablet, 5 MG PO DAILY, (Reported) Glycopyrrolate/Formoterol Fum 10.7 Gm Hfa.aer.ad, 2 PUFF INH BID, (Reported) Guaifenesin/Codeine Phosphate 118 Ml Liquid, 5 ML PO Q4H PRN for COUGH, (Reported) Insulin Glargine,Hum.rec.anlog 100 Unit/1 Ml Vial, 80 UNITS SC HS, (Reported) Insulin Glargine,Hum.rec.anlog 100 Unit/1 Ml Vial, 40 UNIT SQ DAILY, (Reported) Insulin Lispro 100 Unit/1 Ml Vial, 30 UNITS SC TIDAC, (Reported) Levofloxacin 500 Mg Tablet, 500 MG PO DAILY@11 Prescribed by: RAMEZ NGO on 12/03/18 1137 Losartan Potassium 100 Mg Tablet, 100 MG PO DAILY, (Reported) Meloxicam 7.5 Mg Tablet, 7.5 MG PO DAILY, (Reported) Metformin HCl 500 Mg Tablet, 500 MG PO DAILY, (Reported) Quitaque 3 Polyunsat Fatty Acids 1,000 Mg Cap, 1,000 MG PO DAILY, (Reported) Omeprazole 20 Mg Capsule.dr, 20 MG PO DAILY, (Reported) Pioglitazone HCl 15 Mg Tablet, 15 MG PO DAILY, (Reported) Sertraline HCl 100 Mg Tablet, 100 MG PO DAILY, (Reported) Silver Sulfadiazine 20 Gm Cream..g., 0 GM TOP DAILY Prescribed by: RAMEZ NGO on 12/03/18 1137 Tamsulosin HCl 0.4 Mg Cap, 0.4 MG PO DAILY, (Reported) Patient Home Medication List Home Medication List Reviewed: Yes Past Gpczaie-Bxtcak-Ostuwp Hx Past Med/Social Hx: Reviewed Nursing Past Med/Soc Hx, Reviewed and Corrections made Patient Social History Alcohol Use: Denies Use Recreational Drug Use: No Smoking Status: Former Smoker 2nd Hand Smoke Exposure: No Recent Foreign Travel: No Contact w/Someone Who Travel: No Recent Infectious Disease Expo: No Recent Hopitalizations: Yes Immunizations Up To Date PED Vaccines UTD: Yes Date of Pneumonia Vaccine: Mar 28, 2017 Seasonal Allergies Seasonal Allergies: No Past Medical History Surgeries: Yes Orthopedic Respiratory: Yes Pneumonia, Pulmonary Embolism, COPD Cardiac: Yes High Cholesterol, Hypertension Neurological: No Sexually Transmitted Disease: No HIV/AIDS: No Genitourinary: Yes Benign Prostatic Hyperpl, Bladder Infection, Kidney Stones Abdominal Hernia, Diverticulosis Musculoskeletal: Yes Arthritis, Fractures Endocrine: Yes Diabetes, Insulin dep HEENT: Yes Cataract, Tinnitis Loss of Vision: Bilateral Hearing Impairment: Hard of Hearing Cancer: No Psychosocial: No Sleep Difficulties Integumentary: No Blood Disorders: No Adverse Reaction/Blood Tranf: No Family Medical History Patient reports no known family medical history. Review of Systems-General Constitutional: weakness Respiratory: no symptoms reported Cardiovascular: no symptoms reported Genitourinary: no symptoms reported Physical Exam-General Problems Physical Exam Vital Signs Vital Signs - First Documented 11/30/18 11/30/18 20:09 22:31 Temp 104.6 Pulse 112 Resp 26 B/P (MAP) 182/83 (116) Pulse Ox 90 O2 Delivery Room Air O2 Flow Rate 2.00 Capillary Refill : Less Than 3 Seconds General Appearance: no apparent distress, obese HEENT: PERRL/EOMI Neck: supple, normal inspection Respiratory: lungs clear, no respiratory distress, no accessory muscle use Cardiovascular: regular rate, rhythm, no edema, no JVD Gastrointestinal: non tender, soft, other (morbit obese, impossible to assess organmegaly) Extremities: no pedal edema, no calf tenderness, other (small area skin breakdown) Neurologic/Psychiatric: alert, oriented x 3 Assessment/Plan Assessment/Plan Admission Diagnosis/Plan IMP: 1. Fever, E Coli bacteremia per 12/03/18 blood culture. Pending sensitivities. 2. Recent UTI and pneumonia on multiple antibiotics 3. Morbid obese 4. h/o multiple abdominal surgeries in the past with large scars 5. Heptosplenomegaly per recent CT scan, most likely fatty liver 6. Thrombocytopenia and anemia, most likely due to infection and drugs 7. Right upper lobe 2.3cm lung mass per recent CT scan. Rec: 1. Follow up culture and sensitivities and change antibiotics accordingly. 2. I would closely monitor blood counts for now. No indication for bone marrow e xam at this point 3. ID consult 4. If fever persistent, bronch or CT guide biopsy of the right upper lung mass. Otherwise, work up as out-patient. 5. Will f/u with you. Thank you for the consultation. Clinical Quality Measures DVT/VTE Risk/Contraindication: Risk Factor Score Per Nursin RFS Level Per Nursing on Admit: 4+=Very High Other: see interventions WADE OSORIO MD Dec 06, 2018 17:42
[2018-12-06 19:09] VITALS: BP 160/71
--- NOTE | 2018-12-06 19:31 | Consultation (Surgery) ---
History of Present Illness History of Present Illness Patient Consulted On(pradeep/time) 12/06/18 17:25 Date Seen by Provider: Dec 06, 2018 Time Seen by Provider: 17:00 Reason for Visit: fever, low blood counts, UTI E coli sepsis History of Present Illness consult requested by Dr. Da Silva for cholelithiasis, fever unknown origin Patient is a 73-year-old male with previous short hospitalization at outside hospital for a pneumonia/atelectasis. Patient had begun having fevers up to 103 and not feeling well and went to the emergency department. Patient continuing to have fever during hospitalization. Patient states that he continues to have recurrence fevers later in the evening and he'll get fever chills and rigors. This then goes away. The last few days he states he does not been feeling well not wanting to eat. Not wanting to get up. He states that he's having problems with urination having small volume voiding and then 10 minutes later having to go again. Patient has been on antibiotics. His cultures grew out Escherichia coli. He had a CT scan performed which demonstrated cholelithiasis therefore a gallbladder ultrasound was performed demonstrating gallstones and sludge no evidence of gallbladder wall thickening no pericolic cystic fluid. No biliary dilatation. Patient will have episodes of nausea and emesis. Patient states she's not having any significant abdominal discomfort. he is passing flatus and having bowel movements. Patient states that he is tolerating food. Nothing really seems to bring on any of his symptoms he states. Nothing is really overall helped. Currently denies any nausea vomiting fever sweats chills shortness of breath or chest pain at this time. Allergies and Home Medications Allergies Coded Allergies: No Known Drug Allergies (Unverified , 11/26/18) Home Medications Albuterol Sulfate 1 Puff Puff, 2 PUFF INH Q4H PRN for SHORTNESS OF BREATH, (Reported) Amoxicillin/Potassium Clav 1 Each Tablet, 1 TAB PO BID, (Reported) 3 DAY SUPPLY FILLED 11-29-18 Aspirin 81 Mg Tablet.dr, 81 MG PO DAILY, (Reported) C,E,Zinc,Copper 11/Xdygm9q/Lut 1 Each Capsule, 1 CAP PO DAILY, (Reported) Cetirizine HCl 10 Mg Tablet, 10 MG PO DAILY, (Reported) Clotrimazole/Betamethasone Dip 15 Gm Cream..g., 0 GM TP BID Prescribed by: RAMEZ DA SILVA on 12/03/18 1137 Cyanocobalamin (Vitamin B-12) 2,000 Mcg Tablet, 2,000 MCG PO DAILY, (Reported) Finasteride 5 Mg Tablet, 5 MG PO DAILY, (Reported) Glycopyrrolate/Formoterol Fum 10.7 Gm Hfa.aer.ad, 2 PUFF INH BID, (Reported) Guaifenesin/Codeine Phosphate 118 Ml Liquid, 5 ML PO Q4H PRN for COUGH, (Reported) Insulin Glargine,Hum.rec.anlog 100 Unit/1 Ml Vial, 80 UNITS SC HS, (Reported) Insulin Glargine,Hum.rec.anlog 100 Unit/1 Ml Vial, 40 UNIT SQ DAILY, (Reported) Insulin Lispro 100 Unit/1 Ml Vial, 30 UNITS SC TIDAC, (Reported) Levofloxacin 500 Mg Tablet, 500 MG PO DAILY@11 Prescribed by: RAMEZ DA SILVA on 12/03/18 1137 Losartan Potassium 100 Mg Tablet, 100 MG PO DAILY, (Reported) Meloxicam 7.5 Mg Tablet, 7.5 MG PO DAILY, (Reported) Metformin HCl 500 Mg Tablet, 500 MG PO DAILY, (Reported) [place] 3 Polyunsat Fatty Acids 1,000 Mg Cap, 1,000 MG PO DAILY, (Reported) Omeprazole 20 Mg Capsule.dr, 20 MG PO DAILY, (Reported) Pioglitazone HCl 15 Mg Tablet, 15 MG PO DAILY, (Reported) Sertraline HCl 100 Mg Tablet, 100 MG PO DAILY, (Reported) Silver Sulfadiazine 20 Gm Cream..g., 0 GM TOP DAILY Prescribed by: RAMEZ DA SILVA on 12/03/18 1137 Tamsulosin HCl 0.4 Mg Cap, 0.4 MG PO DAILY, (Reported) Patient Home Medication List Home Medication List Reviewed: Yes Past Ibqfjnh-Yqeviz-Otbjeo Hx Patient Social History Alcohol Use: Denies Use Recreational Drug Use: No Smoking Status: Former Smoker 2nd Hand Smoke Exposure: No Recent Foreign Travel: No Contact w/Someone Who Travel: No Recent Infectious Disease Expo: No Recent Hopitalizations: Yes Physical Abuse Screen: No Sexual Abuse: No Immunizations Up To Date PED Vaccines UTD: Yes Date of Pneumonia Vaccine: Mar 28, 2017 Seasonal Allergies Seasonal Allergies: No Surgeries History of Surgeries: Yes Surgeries: Orthopedic Respiratory History of Respiratory Disorde: Yes Respiratory Disorders: Pneumonia, Pulmonary Embolism, COPD Cardiovascular History of Cardiac Disorders: Yes Cardiac Disorders: High Cholesterol, Hypertension Neurological History of Neurological Disord: No Reproductive System Sexually Transmitted Disease: No HIV/AIDS: No Genitourinary History of Genitourinary Disor: Yes Genitourinary Disorders: Benign Prostatic Hyperpl, Bladder Infection, Kidney Stones Gastrointestinal Gastrointestinal Disorders: Abdominal Hernia, Diverticulosis Musculoskeletal History of Musculoskeletal Dis: Yes Musculoskeletal Disorders: Arthritis, Fractures Endocrine History of Endocrine Disorders: Yes Endocrine Disorders: Diabetes, Insulin dep HEENT History of HEENT Disorders: Yes HEENT Disorders: Cataract, Tinnitis Loss of Vision: Bilateral Hearing Impairment: Hard of Hearing Cancer History of Cancer: No Psychosocial History of Psychiatric Problem: No Behavioral Health Disorders: Sleep Difficulties Integumentary History of Skin or Integumenta: No Blood Transfusions History of Blood Disorders: No Adverse Reaction to a Blood Tr: No Family Medical History Significant Family History: No Pertinent Family Hx Family Medial History: Patient reports no known family medical history. Review of Systems-General Constitutional: see HPI, chills, fever EENTM: no symptoms reported Respiratory: no symptoms reported Cardiovascular: no symptoms reported Gastrointestinal: see HPI Genitourinary: see HPI Musculoskeletal: no symptoms reported Skin: no symptoms reported Psychiatric/Neurological: No Symptoms Reported Physical Exam-General Problems Physical Exam Vital Signs Vital Signs - First Documented 11/30/18 11/30/18 20:09 22:31 Temp 104.6 Pulse 112 Resp 26 B/P (MAP) 182/83 (116) Pulse Ox 90 O2 Delivery Room Air O2 Flow Rate 2.00 Capillary Refill : Less Than 3 Seconds General Appearance: no apparent distress HEENT: PERRL/EOMI, normal ENT inspection Neck: full range of motion, supple Respiratory: chest non-tender, no respiratory distress, no accessory muscle use Cardiovascular: regular rate, rhythm Gastrointestinal: non tender, soft, no organomegaly, no pulsatile mass Rectal: deferred Back: no CVA tenderness, no vertebral tenderness Extremities: non-tender, normal inspection 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, no motor/sensory deficits, alert, normal mood/affect, oriented x 3 Skin: warm/dry Lymphatic: no adenopathy Comments right subclavicular mass approximately 3 cm in diameter Data Review Labs Laboratory Tests 12/05/18 20:28: Glucometer 123H 12/06/18 05:35: Glucometer 130H 12/06/18 07:00: 12/06/18 07:55: White Blood Count 5.2, Red Blood Count 3.13L, Hemoglobin 9.2L, Hematocrit 30L, Mean Corpuscular Volume 97, Mean Corpuscular Hemoglobin 29, Mean Corpuscular Hemoglobin Concent 30L, Red Cell Distribution Width 18.7H, Platelet Count 95L, Mean Platelet Volume 10.1, Neutrophils (%) (Auto) 71, Lymphocytes (%) (Auto) 19, Monocytes (%) (Auto) 8, Eosinophils (%) (Auto) 1, Basophils (%) (Auto) 0, Neutrophils # (Auto) 3.7, Lymphocytes # (Auto) 1.0, Monocytes # (Auto) 0.4, Eosinophils # (Auto) 0.1, Basophils # (Auto) 0.0, Sodium Level 139, Potassium Level 3.9, Chloride Level 109H, Carbon Dioxide Level 23, Anion Gap 7, Blood Urea Nitrogen 7, Creatinine 0.76, Estimat Glomerular Filtration Rate > 60, BUN/Creatinine Ratio 9, Glucose Level 148H, Calcium Level 8.3L, Phosphorus Level 3.1, Magnesium Level 1.8, Vancomycin Level Trough 13.6 12/06/18 10:50: Urine Color YELLOW, Urine Clarity CLEAR, Urine pH 5, Urine Specific [place] 1.015L, Urine Protein NEGATIVE, Urine Glucose (UA) NEGATIVE, Urine Ketones NEGATIVE, Urine Nitrite NEGATIVE, Urine Bilirubin NEGATIVE, Urine Urobilinogen NORMAL, Urine Leukocyte Esterase 1+H, Urine RBC (Auto) NEGATIVE, Urine RBC NONE, Urine WBC 5-10H, Urine Squamous Epithelial Cells 2-5, Urine Crystals NONE, Urine Bacteria TRACE, Urine Casts NONE, Urine Mucus NEGATIVE, Urine Culture Indicated NO 12/06/18 11:12: Glucometer 250H 12/06/18 15:17: Glucometer 245H Microbiology 12/03/18 Blood Culture - Preliminary, Resulted No growth 12/04/18 MRSA Screen - Final, Complete MRSA not isolated 11/30/18 Urine Culture - Final, Complete NO GROWTH Assessment/Plan Assessment/Plan Assessment/Plan Fever unknown source cholelithiasis without evidence of cholecystitis E Coli bacteremia UTI /prostatitis on Levaquin by mouth Right upper lobe lung mass right subclavicular mass I do not feel his gallbladder is causing any issues at this time. He does have cholelithiasis but no evidence of cholecystitis no gallbladder wall thickening or pericholecystic fluid. If feel this becomes possible source would obtain a HIDA scan without ejection fraction to check for patency cystic duct. Patient does have a palpable mass right subclavicular area will get ultrasound to further evaluate. Patient also with right upper lobe lung mass which he is awaiting possible biopsy. continue with current antibiotics and await sensitivities.no surgical intervention at this time will follow. Clinical Quality Measures DVT/VTE Risk/Contraindication: Risk Factor Score Per Nursin RFS Level Per Nursing on Admit: 4+=Very High Other: see interventions JABIER ALVARENGA DO Dec 06, 2018 19:31
--- NOTE | 2018-12-06 20:31 | Diagnostic Imaging Report ---
PATIENT HISTORY: Right subclavicular mass. TECHNIQUE: High-resolution grayscale and color Doppler ultrasound was performed of the soft tissues in the right subclavicular region. COMPARISON: None FINDINGS: There is a mass in the right subclavicular region which measures 3.5 x 1.1 x 4.3 cm. There is no associated vascularity. No aggressive characteristics are seen. The mass is wider than tall, has a capsule, and an oval-shape. This appears to be of similar echogenicity of the adjacent subcutaneous tissue. IMPRESSION: Subcutaneous mass in the right subclavicular region, likely a lipoma. Dictated by: Dictated on workstation # [id number]
[2018-12-07] VITALS: BP 172/64
[2018-12-07] MEDS: MEROPENEM 500 MG/SWFI 10 ML IV PUSH IV SCH ×2 (05:51)
[2018-12-07 05:55] LABS: BASOPHILS % (AUTO) 0 % (0-10); EOSINOPHILS # (AUTO) 0.1 10^3/uL (0.0-0.3); EOSINOPHILS % (AUTO) 2 % (0-10); HEMATOCRIT 31 % (40-54); HEMOGLOBIN 9.5 G/DL (13.3-17.7); LYMPHOCYTES # (AUTO) 1.1 X 10^3 (1.0-4.0); LYMPHOCYTES % (AUTO) 26 % (12-44); MEAN CORPUSCULAR HEMOGLOBIN 30 PG (25-34); MEAN CORPUSCULAR HGB CONC 31 G/DL (32-36); MEAN CORPUSCULAR VOLUME 98 FL (80-99); MEAN PLATELET VOLUME 11.3 FL (7.4-10.4); MONOCYTES # (AUTO) 0.3 X 10^3 (0.0-1.0); MONOCYTES % (AUTO) 8 % (0-12); NEUTROPHILS # (AUTO) 2.6 X 10^3 (1.8-7.8); NEUTROPHILS % (AUTO) 64 % (42-75); PLATELET COUNT 90 10^3/uL (130-400); RED CELL DISTRIBUTION WIDTH 18.5 % (10.0-14.5); WHITE BLOOD COUNT 4.1 10^3/uL (4.3-11.0)
[2018-12-07 06:16] LABS: BUN/CREATININE RATIO 11; CALCIUM 8.5 MG/DL (8.5-10.1); CARBON DIOXIDE 26 MMOL/L (21-32); CHLORIDE 107 MMOL/L (98-107); CREATININE SERUM 0.73 MG/DL (0.60-1.30); GFR ESTIMATED > 60; GLUCOSE 122 MG/DL (70-105); MAGNESIUM 1.8 MG/DL (1.8-2.4); PHOSPHORUS 3.1 MG/DL (2.3-4.7); POTASSIUM 3.8 MMOL/L (3.6-5.0); SODIUM 140 MMOL/L (135-145)
[2018-12-07] MEDS: CYANOCOBALAMIN 1,000 MCG (VITAMIN B-12) TABLET PO SCH (06:39)
[2018-12-07] MEDS: ENOXAPARIN 40 MG/0.4 ML (LOVENOX) SYR SC SCH ×2 (06:39→17:07)
[2018-12-07] MEDS: PIOGLITAZONE 30MG (ACTOS) TAB PO SCH (06:39)
--- NOTE | 2018-12-07 07:36 | Pulmonary Progress Note ---
Subjective Time Seen by a Provider: 07:45 Subjective/Events-last exam Pt appears to be doing better with Merrem Sepsis Event Evaluation Height, Weight, BMI Height: 6'7.00" Weight: 374lbs. 9.0oz. 169.120608xp; 42.8 BMI Method:Actual Exam Exam Vital Signs Date Time Temp Pulse Resp B/P (MAP) Pulse Ox O2 Delivery O2 Flow Rate FiO2 12/07/18 00:00 98.4 79 18 172/64 (100) 95 Room Air 12/06/18 22:53 Nasal Cannula 2.00 12/06/18 21:00 93 Room Air 2.00 12/06/18 19:09 97.6 75 18 160/71 (100) 95 Nasal Cannula 2.00 12/06/18 15:58 98.0 68 20 137/62 (87) 92 Room Air 12/06/18 12:00 96.6 69 18 133/52 (79) 96 Nasal Cannula 2.00 12/06/18 09:00 93 Room Air 2.00 12/06/18 08:00 97.6 69 18 133/65 (87) 96 Nasal Cannula 2.00 I & O 12/07/18 07:00 Intake Total 2970 ml Output Total 1875 ml Balance 1095 ml Height & Weight Height: 6'7.00" Weight: 374lbs. 9.0oz. 169.700321xx; 42.8 BMI Method:Actual General Appearance: No Apparent Distress, WD/WN, Chronically ill, Obese HEENT: PERRL/EOMI, Normal ENT Inspection, Pharynx Normal, Moist Mucous Membranes Neck: Full Range of Motion, Normal Inspection, Non Tender Respiratory: Chest Non Tender, No Accessory Muscle Use, No Respiratory Distress, Crackles (RLL) Cardiovascular: Regular Rate, Rhythm, No Edema, No Gallop, No JVD, No Murmur, Normal Peripheral Pulses Capillary Refill: Less Than 3 Seconds Gastrointestinal: non tender, soft, no organomegaly, no pulsatile mass Extremity: Normal Capillary Refill, Normal Inspection, Normal Range of Motion, Non Tender, No Calf Tenderness, No Pedal Edema Neurologic/Psychiatric: Alert, Oriented x3, No Motor/Sensory Deficits, Normal Mood/Affect Skin: Normal Color, Warm/Dry Lymphatic: No Adenopathy Results Lab Laboratory Tests 12/06/18 07:55 12/07/18 05:00 Assessment/Plan Assessment/Plan UTI with sepsis-- Last fever was 12/03 of 102.4 - Merrem -Diaz cultured Bacteremia with Ecoli - secondary to prostatitis -Repeat blood cultures - XIN - is negative --Check RUQ US secondary to cholelithiasis Metabolic lactic acidosis-- resolved Lung mass- Pt has had a previous lobectomy -PET scan is scheduled at [facility] for December d/w radiology and they state wt limit for PET scan is over 400lbs. Will schedule PET scan for next thursday here at [facility]. - Check PET scan prior to CT bx . -Will need close F/u as out pt Cholelithiasis -Surgery following DM -restart home insulin Pancytopenia -Oncology following MICHELLE AMADO DO Dec 07, 2018 07:36
[2018-12-07 08:00] VITALS: BP 163/71
[2018-12-07] MEDS: inSUlin ASPART (NovoLOG) 1 UNIT/0.01 ML (CHARGE PER UNIT) SC SCH ×3 (08:07→18:18)
[2018-12-07] MEDS: ASPIRIN E.C. 81 MG (ECOTRIN) TAB PO SCH (08:08)
[2018-12-07] MEDS: TAMSULOSIN 0.4 MG (FLOMAX) CAP PO SCH (08:08)
[2018-12-07] MEDS: FINASTERIDE (PROSCAR) 5 MG TAB PO SCH (08:08)
[2018-12-07] MEDS: SERTRALINE 100 MG (ZOLOFT) TAB PO SCH (08:08)
[2018-12-07] MEDS: PANTOPRAZOLE 20 MG TABLET (PROTONIX) PO SCH (08:08)
[2018-12-07] MEDS: LORATADINE (CLARITIN) 10 MG TAB PO SCH (08:08)
[2018-12-07] MEDS: LOSARTAN 100 MG (COZAAR) TABLET PO SCH (08:08)
[2018-12-07] MEDS: OMEGA 3 (FISH OIL) 1000 MG CAP PO SCH (08:08)
[2018-12-07] MEDS: MELOXICAM 7.5 MG (MOBIC) TABLET PO SCH (08:08)
[2018-12-07] MEDS: BETAMETHASONE/CLOTRIM CREAM (LOTRISONE) 45 GM TP SCH ×2 (08:12→21:18)
[2018-12-07] MEDS: SILVER SULFADIAZINE 50 GM CREAM TOP SCH (08:12)
[2018-12-07] MEDS: ACETAMINOPHEN 325 MG TABLET PO PRN (08:14)
[2018-12-07] MEDS ORDERED: TRIM/SULFAMETH 160/800 (SEPTRA DS) TAB PO ONE (09:30)
--- NOTE | 2018-12-07 09:44 | Progress Note-Hospitalist ---
Subjective HPI/CC On Admission Date Seen by Provider: Dec 07, 2018 Time Seen by Provider: 09:30 Chief complaint: Fever with chills HPI: This is a 73yoWM clinic Pt of mine that I just discharged the day before after a short hospital course for right lower lobe early pneumonia atelectasis in addition to UTI that ended up culture less than 10,000 enterococcus so he was placed on Augmentin and overall he was maintained compliance with those antibiotics but while visiting his who is inpatient rehab he began having fever and chills and temperature went up to 103, having nausea and vomiting he was sent up to the ER found to have sepsis. Pt was given aggressive IV fluids and empiric antibiotics of Zosyn and Vancomycin and close monitoring by Dr. Coleman, Dr. Curiel and Dr. Liu. He never had any bladder infections before but this seems to be a urological issue that will be addressed by Dr. Liu. Subjective/Events-last exam Patient no longer running fever Dyspnea noted today so will give Lasix 40mg IVP now and repeat in am and add BNP to labs Bactrim added first dose now and DC Meropenem Labs reviewed Appreciate Prince Llamas, Cecilio, [place] help in this FUO case Failed Levaquin PO due to resistant per UCx Checked meds and labs Bowels not moving PET next week Thursday at [facility] Lung biopsy needs to be done and it is concerning for neoplastic process Review of Systems General: Fatigue Pulmonary: Dyspnea Objective Exam Vital Signs Vital Signs Date Time Temp Pulse Resp B/P (MAP) Pulse Ox O2 Delivery O2 Flow Rate FiO2 12/07/18 08:00 97.6 65 20 163/71 (101) 94 Nasal Cannula 2.00 Capillary Refill : Less Than 3 Seconds General Appearance: WD/WN, Anxious, Chronically ill, Mild Distress, Obese HEENT: PERRL/EOMI, Normal ENT Inspection, Pharynx Normal, Moist Mucous Membranes Neck: Full Range of Motion, Normal Inspection, Non Tender Respiratory: Chest Non Tender, No Accessory Muscle Use, No Respiratory Distress, Crackles (RLL) Cardiovascular: Regular Rate, Rhythm, No Edema, No Gallop, No JVD, No Murmur, Normal Peripheral Pulses Gastrointestinal: Normal Bowel Sounds, No Organomegaly, No Pulsatile Mass, Non Tender, Soft Back: Normal Inspection, No CVA Tenderness, No Vertebral Tenderness Extremity: Normal Capillary Refill, Normal Inspection, Normal Range of Motion, Non Tender, No Calf Tenderness, No Pedal Edema Neurologic/Psychiatric: Alert, Oriented x3, No Motor/Sensory Deficits, Normal Mood/Affect Skin: Normal Color, Warm/Dry Lymphatic: No Adenopathy Results/Procedures Lab Laboratory Tests 12/07/18 05:00 Patient resulted labs reviewed. Assessment/Plan Assessment and Plan Assess & Plan/Chief Complaint Assessment: Sepsis with recurrent fever and rigors at [id number] every night when on PO abx now with gram negative rods on BCx from Thursday night already maintained on Levaquin PO and Zosyn in addition to Vanc but Vanc DC today and still awaiting final cultures are completed and s/p repeat CT scan of chest since crackles in RLL and mass in RUL may be abscess and cannot obtain biopsy Thursday if abscess and underwent XIN per Dr Curiel today which was normal and no evidence of any endocarditis- spoke to ID and prostatitis or in origin is most likely the course so changing to Meropenem and awaiting BCx E coli and today UCx reviewed and will start Bactrim BID Acute onset dyspnea giving Lasix maintained on Lovenox BID for DVT PPx Atelectasis on right lower lobe on CT scan UTI? All UCX negative thus far Prostatitis Enlarged prostate on CT scan placed on PO Levaquin COPD Right upper lung nodule suspicious for neoplasm set for biopsy Thursday but may not be able to if abscess and bacteremia DM HTN HLP JULIAN BPH Lovenox PPx maintained since admit Plan: Monitor closely IV abx Meropenem DC start Bactrim s/p XIN by Dr Curiel to check for endocarditis which was negative CT guided needle biopsy right upper lung mass next week by Dr Amezquita if stable versus PET scan Thursday outpatient Consult Dr Morrison and Dr Hernandes for further evaluation PSA normal, repeat UA normal, renal USG reviewed revealing right renal cyst Diagnosis/Problems Diagnosis/Problems (1) FUO (fever of unknown origin) Status: Acute (2) Gram-negative bacteremia Status: Acute (3) Prostatitis, acute Status: Acute (4) UTI (urinary tract infection) Status: Acute Qualifiers: Urinary tract infection type: acute cystitis Hematuria presence: without h ematuria Qualified Codes: N30.00 - Acute cystitis without hematuria (5) Sepsis Status: Acute Qualifiers: Sepsis type: sepsis due to unspecified organism Qualified Codes: A41.9 - Sepsis, unspecified organism (6) Diabetes mellitus, insulin dependent (IDDM), controlled Status: Chronic (7) JULIAN on CPAP Status: Chronic (8) COPD with exacerbation Status: Chronic (9) Hypertension Status: Chronic Qualifiers: Hypertension type: essential hypertension Qualified Codes: I10 - Essential (primary) hypertension (10) GERD (gastroesophageal reflux disease) Status: Chronic Qualifiers: Esophagitis presence: without esophagitis Qualified Codes: K21.9 - Gastro- esophageal reflux disease without esophagitis (11) Vitamin B 12 deficiency Status: Chronic (12) Osteoarthritis Status: Chronic Qualifiers: Osteoarthritis location: unspecified site Osteoarthritis type: unspecified Qualified Codes: M19.90 - Unspecified osteoarthritis, unspecified site (13) Hyperlipidemia Status: Chronic Qualifiers: Hyperlipidemia type: mixed hyperlipidemia Qualified Codes: E78.2 - Mixed hyperlipidemia (14) Fever Status: Resolved Qualifiers: Fever type: unspecified Qualified Codes: R50.9 - Fever, unspecified Resolution Date/Time: 12/02/18 @ 20:38 (15) Mass of upper lobe of right lung Status: Acute Clinical Quality Measures DVT/VTE Risk/Contraindication: Risk Factor Score Per Nursin RFS Level Per Nursing on Admit: 4+=Very High Other: see interventions RAMEZ NGO DO Dec 07, 2018 09:44
[2018-12-07] MEDS ORDERED: FUROSEMIDE 40 MG/4 ML INJ (LASIX) IVP ONE (09:45)
[2018-12-07] MEDS ORDERED: DOCUSATE SODIUM 100 MG (COLACE) CAP PO PRN (09:45)
[2018-12-07] MEDS ORDERED: POLYETHYLENE GLYCOL 17 GM (MIRALAX) PACK PO ONE (09:45)
[2018-12-07] MEDS ORDERED: FUROSEMIDE 40 MG/4 ML INJ (LASIX) ONE (10:53)
[2018-12-07] MEDS ORDERED: DOCUSATE SODIUM 100 MG (COLACE) CAP PO NR (10:59)
[2018-12-07] MEDS ORDERED: meTOproloL SUCCINATE 50 MG (TOPROL XL) TAB PO NR (12:30)
--- NOTE | 2018-12-07 12:30 | Progress Note-Cardiology ---
Cardiology SOAP Progress Note Subjective: Sitting up in a chair at the bedside. Feels breathing is unchanged from yesterday. No c/o CP, palpitations, syncope or near syncope. Objective: I&O/Vital Signs 12/07/18 12/07/18 12/07/18 12/07/18 08:00 09:00 14:35 15:36 Temp 97.6 97.9 Pulse 65 76 72 Resp 20 18 B/P (MAP) 163/71 (101) 144/67 (92) 137/62 (87) Pulse Ox 94 94 96 95 O2 Delivery Nasal Cannula Nasal Cannula Nasal Cannula Nasal Cannula O2 Flow Rate 2.00 2.00 2.00 2.00 12/07/18 17:08 Pulse Ox 94 O2 Delivery Room Air 12/07/18 00:00 Intake Total 2220 ml Output Total 1425 ml Balance 795 ml Weight (Pounds): 374 Weight (Ounces): 9.0 Weight (Calculated Kilograms): 169.945793 Constitutional: AAO x 3, well-developed, well-nourished Respiratory: No accessory muscle use, No respiratory distress; chest expansion is symmetric, chest is bilaterally symmetric, other (diminished breath sounds with fair air entry) Cardiovascular: regular rate-rhythm, S1 and S2, systolic murmur (faint LENNOX at card base) Gastrointestional: No tender; soft; No guarding, No rebound; audible bowel sounds Extremities: swelling (mild edema of the legs); No clubbing, No cyanosis Neurologic/Psychiatric: grossly intact Skin: No rash on exposed areas; ulcerations on exposed areas (multiple dressings to bilat LE - D&I - not removed) Results/Procedures: Labs Laboratory Tests 12/06/18 20:22: Glucometer 160H 12/07/18 05:00: White Blood Count 4.1L, Red Blood Count 3.16L, Hemoglobin 9.5L, Hematocrit 31L, Mean Corpuscular Volume 98, Mean Corpuscular Hemoglobin 30, Mean Corpuscular Hemoglobin Concent 31L, Red Cell Distribution Width 18.5H, Platelet Count 90L, Mean Platelet Volume 11.3H, Neutrophils (%) (Auto) 64, Lymphocytes (%) (Auto) 26, Monocytes (%) (Auto) 8, Eosinophils (%) (Auto) 2, Basophils (%) (Auto) 0, Neutrophils # (Auto) 2.6, Lymphocytes # (Auto) 1.1, Monocytes # (Auto) 0.3, Eosinophils # (Auto) 0.1, Basophils # (Auto) 0.0, Sodium Level 140, Potassium Level 3.8, Chloride Level 107, Carbon Dioxide Level 26, Anion Gap 7, Blood Urea Nitrogen 8, Creatinine 0.73, Estimat Glomerular Filtration Rate > 60, BUN/Creatinine Ratio 11, Glucose Level 122H, Calcium Level 8.5, Phosphorus Level 3.1, Magnesium Level 1.8, B-Type Natriuretic Peptide 120.9H 12/07/18 11:45: Glucometer 192H 12/07/18 15:35: Glucometer 208H Microbiology 12/03/18 Blood Culture - Preliminary, Resulted No growth 12/04/18 MRSA Screen - Final, Complete MRSA not isolated 11/30/18 Urine Culture - Final, Complete NO GROWTH Laboratory Tests 12/06/18 07:55 12/07/18 05:00 Procedures NAME: ISELA YEE [facility] REC#: [id number] PT STATUS: ADM IN : 1945 PHYSICIAN: JABIER ALVARENGA DO ADMIT DATE: 11/30/18 Signed Date of Exam: 12/06/18 [place] CHEST [id number] PATIENT HISTORY: Right subclavicular mass. TECHNIQUE: High-resolution grayscale and color Doppler ultrasound was performed of the soft tissues in the right subclavicular region. COMPARISON: None FINDINGS: There is a mass in the right subclavicular region which measures 3.5 x 1.1 x 4.3 cm. There is no associated vascularity. No aggressive characteristics are seen. The mass is wider than tall, has a capsule, and an oval-shape. This appears to be of similar echogenicity of the adjacent subcutaneous tissue. IMPRESSION: Subcutaneous mass in the right subclavicular region, likely a lipoma. Dictated by: Dictated on workstation # [id number] Dict: 12/06/182022 Trans: 12/06/182123 Interpreted by: DANISHA ZAVALA MD Electronically signed by: DANISHA ZAVALA MD 12/06/182123 A/P: Assessment: UTI with sepsis (recurrent sepsis), managed by Dr Da Silva Pulm lesion/mass, managed by Dr Da Silva and Dr Coleman H/o COPD JULIAN Type 2 LA (mild troponin elevation during earlier admission of 11/26/18) Mild anemia of undetermined etiology, managed by Dr Da Silva Hypertension - not well controlle Hyperlipidemia, by history Diabetes mellitus II, followed and managed by primary care physician Obesity, BMI is approx 41 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 XIN of 12/05/18: normal LVEF, tiny PFO with tiny L to R shunt, mild MR, no evidence of endocarditis Subcutaneous mass in the right subclavicular region, likely a lipoma per u/s of December 06, 2018 Mass in the right apex seen previously is again evident. This finding is worrisome for neoplasm per CT of the chest on 12-04-18 - management per Dr. Coleman Plan: * HTN - BP not well controlled - adjust antihypertensives * Reporting concerns with LE swelling - mild - received IV Lasix per medical services this morning * Source of bacteremia does not appear to be any endocarditis * Dr Da Silva managing sepsis and bacteremia * Management of mass seen on CT of the chest on 12-04-[address] Coleman * Monitor closely Physician Assessment Physician Assessment Had felt short of breath and swollen this morning; got Lasix; feels better now Denies cp or palp or syncope Lungs: good bilat air entry Cor: reg Ext: mild to mod bilat leg edema A&R * As documented in our note above that I updated (italics) and as noted below * Adding Dyazide to regimen because of hypertension and leg swelling * Monitor labs [employer] Dec 07, 2018 12:30 EDWIGE MORALES MD [facility] Dec 07, 2018 18:08
[2018-12-07 14:35] VITALS: BP 144/67
--- NOTE | 2018-12-07 15:10 | Oncology Progress Note ---
Subjective Date Seen by a Provider: Dec 07, 2018 Time Seen by a Provider: 12:50 Subjective/Events-last exam Pt is feeling much better today. No fever over 72 hrs Blood culture showed E coli, resistant to Levaquin, Cipro and Ampicillin. He was put on Meropenum 12/06/18 at 10:25. 2.3 cm RUL lung nodule on CT scan. Pt stated that he had blood clot in the right lung 20 years ago when he had his major abdominal surgery. He was told he had a scar in his right upper lung. He has a pulmanologist Dr Lewis follow up on this with scan every 6-12 months. He will see him again in January 2019. Data Review Labs Laboratory Tests 12/07/18 05:00 Laboratory Tests 12/04/18 16:42: 12/04/18 21:42: 12/05/18 06:00: Glucometer 218H 12/05/18 07:00: White Blood Count 3.7L, Red Blood Count 3.17L, Hemoglobin 9.4L, Hematocrit 31L, Mean Corpuscular Hemoglobin Concent 31L, Red Cell Distribution Width 18.0H, Platelet Count 87L, Chloride Level 110H, Glucose Level 220H, Calcium Level 8.3L, Total Protein 5.6L 12/05/18 11:03: Glucometer 195H 12/05/18 16:23: Glucometer 165H 12/05/18 20:28: Glucometer 123H 12/06/18 05:35: Glucometer 130H 12/06/18 07:00: 12/06/18 07:55: Red Blood Count 3.13L, Hemoglobin 9.2L, Hematocrit 30L, Mean Corpuscular Hemoglobin Concent 30L, Red Cell Distribution Width 18.7H, Platelet Count 95L, Chloride Level 109H, Glucose Level 148H, Calcium Level 8.3L 12/06/18 10:50: Urine Specific [place] 1.015L, Urine Leukocyte Esterase 1+H, Urine WBC 5-10H 12/06/18 11:12: Glucometer 250H 12/06/18 15:17: Glucometer 245H 12/06/18 20:22: Glucometer 160H 12/07/18 05:00: White Blood Count 4.1L, Red Blood Count 3.16L, Hemoglobin 9.5L, Hematocrit 31L, Mean Corpuscular Hemoglobin Concent 31L, Red Cell Distribution Width 18.5H, Platelet Count 90L, Mean Platelet Volume 11.3H, Glucose Level 122H, B-Type Natriuretic Peptide 120.9H 12/07/18 11:45: Glucometer 192H Physical Exam Vital Signs Vital Signs - First Documented Capillary Refill : Less Than 3 Seconds Height, Weight, BMI Height: 6'7.00" Weight: 374lbs. 9.0oz. 169.747345uw; 42.8 BMI Method:Actual General Appearance: No Apparent Distress HEENT: PERRL/EOMI Neck: Non Tender, Supple Respiratory: Chest Non Tender, Lungs Clear, No Accessory Muscle Use, No Respiratory Distress Cardiovascular: Regular Rate, Rhythm, No Edema, No Murmur Gastrointestinal: Non Tender, Soft Extremity: Non Tender, No Calf Tenderness, No Pedal Edema Neurologic/Psychiatric: Alert, Oriented x3 Impression & Plan Impression & Plan A/P 1. Fever, E Coli bacteremia per 12/03/18 blood culture. Not sensitive to Levaquin and Ampicillin. Sensitive to Meropenum. Pt started yesterday and is doing better now and afebrile for 72 hrs. 2. Recent UTI and pneumonia on multiple antibiotics 3. Morbid obese 4. h/o multiple abdominal surgeries in the past with large scars 5. Heptosplenomegaly per recent CT scan, most likely fatty liver 6. Thrombocytopenia and anemia, most likely due to infection and drugs 7. Right upper lobe 2.3cm lung mass per recent CT scan. ? old or new. Need to compare to the old film or scan at Dr Lewis office. Rec: 1. Dr. Da Silva to decide the antibiotics course according to sensitivities. 2. I anticipate his WBC and Hb will recovery in 1-2 months once infection is under control and he is off antibiotics. However, he will have thrombocytopenia due to fatty liver and splenomegaly. I can see him in 1-2 months after discharge from the hospital. 3. Out-pt work up for RUL nodule or f/u with his pulmonalogist Dr Lewis. 4. If fever recurs, bronch or CT guide biopsy of the right upper lung mass. Otherwise, work up as out-patient. Thank you for the consultation. Clinical Quality Measures DVT/VTE Risk/Contraindication: Risk Factor Score Per Nursin RFS Level Per Nursing on Admit: 4+=Very High Other: see interventions WADE OSORIO MD Dec 07, 2018 15:10
[2018-12-07 15:36] VITALS: BP 137/62
[2018-12-07] MEDS: TRIM/SULFAMETH 160/800 (SEPTRA DS) TAB PO SCH (17:07)
--- NOTE | 2018-12-07 18:29 | Progress Note ---
Subjective Date Seen by a Provider: Dec 07, 2018 Time Seen by a Provider: 12:48 Subjective/Events-last exam Patient had some shortness of breath early this morning,was given Lasix and doing significantly better. He states he is now urinating a lot. Patient urine culture was resistant to Levaquin now on Merrem and patient's been afebrile. Patient states he is passing flatus. Had a bowel movement yesterday. Patient states that his not having any significant abdominal pain. He does not have any nausea vomiting fever sweats chills shortness of breath or chest pain at this time. 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 Objective Exam Vital Signs Date Time Temp Pulse Resp B/P (MAP) Pulse Ox O2 Delivery O2 Flow Rate FiO2 12/07/18 17:08 94 Room Air 12/07/18 15:36 97.9 72 18 137/62 (87) 95 Nasal Cannula 2.00 12/07/18 14:35 76 144/67 (92) 96 Nasal Cannula 2.00 12/07/18 09:00 94 Nasal Cannula 2.00 12/07/18 08:00 97.6 65 20 163/71 (101) 94 Nasal Cannula 2.00 12/07/18 00:00 98.4 79 18 172/64 (100) 95 Room Air 12/06/18 22:53 Nasal Cannula 2.00 12/06/18 21:00 93 Room Air 2.00 12/06/18 19:09 97.6 75 18 160/71 (100) 95 Nasal Cannula 2.00 I & O 12/07/18 07:00 Intake Total 2970 ml Output Total 1875 ml Balance 1095 ml Capillary Refill : Less Than 3 Seconds General Appearance: No Apparent Distress HEENT: PERRL/EOMI Neck: Non Tender, Supple Respiratory: Chest Non Tender, Lungs Clear, No Accessory Muscle Use, No Respiratory Distress, Other (right subclavicular mass) Cardiovascular: Regular Rate, Rhythm, No Edema, No Murmur Gastrointestinal: non tender, soft, other (morbit obese, impossible to assess organmegaly) Extremity: Non Tender, No Calf Tenderness, No Pedal Edema Neurologic/Psychiatric: Alert, Oriented x3 Skin: Normal Color, Warm/Dry Lymphatic: No Adenopathy Results Lab Laboratory Tests 12/06/18 20:22: Glucometer 160H 12/07/18 05:00: White Blood Count 4.1L, Red Blood Count 3.16L, Hemoglobin 9.5L, Hematocrit 31L, Mean Corpuscular Volume 98, Mean Corpuscular Hemoglobin 30, Mean Corpuscular Hemoglobin Concent 31L, Red Cell Distribution Width 18.5H, Platelet Count 90L, Mean Platelet Volume 11.3H, Neutrophils (%) (Auto) 64, Lymphocytes (%) (Auto) 26, Monocytes (%) (Auto) 8, Eosinophils (%) (Auto) 2, Basophils (%) (Auto) 0, Neutrophils # (Auto) 2.6, Lymphocytes # (Auto) 1.1, Monocytes # (Auto) 0.3, Eosinophils # (Auto) 0.1, Basophils # (Auto) 0.0, Sodium Level 140, Potassium Level 3.8, Chloride Level 107, Carbon Dioxide Level 26, Anion Gap 7, Blood Urea Nitrogen 8, Creatinine 0.73, Estimat Glomerular Filtration Rate > 60, BUN/Creatinine Ratio 11, Glucose Level 122H, Calcium Level 8.5, Phosphorus Level 3.1, Magnesium Level 1.8, B-Type Natriuretic Peptide 120.9H 12/07/18 11:45: Glucometer 192H 12/07/18 15:35: Glucometer 208H Microbiology 12/03/18 Blood Culture - Preliminary, Resulted No growth 12/04/18 MRSA Screen - Final, Complete MRSA not isolated 11/30/18 Urine Culture - Final, Complete NO GROWTH Assessment/Plan Assessment/Plan Assessment/Plan Fever unknown source cholelithiasis without evidence of cholecystitis E Coli bacteremia UTI /prostatitis Urine culture resistant to Levaquin on Merrem now Right upper lobe lung mass right subclavicular mass I do not feel his gallbladder is causing any issues at this time. He does have cholelithiasis but no evidence of cholecystitis no gallbladder wall thickening or pericholecystic fluid. If feel this becomes possible source would obtain a HIDA scan without ejection fraction to check for patency cystic duct. Patient does have a palpable mass right subclavicular area which ultrasound is consistent with lipoma. Patient also with right upper lobe lung mass which he is awaiting possible biopsy. Continue with medical management and no surgical intervention at this time. Clinical Quality Measures DVT/VTE Risk/Contraindication: Risk Factor Score Per Nursin RFS Level Per Nursing on Admit: 4+=Very High Other: see interventions JABIER ALVARENGA DO Dec 07, 2018 18:29
[2018-12-07] MEDS ORDERED: POLYETHYLENE GLYCOL 17 GM (MIRALAX) PACK PO SCH (21:00)
--- NOTE | 2018-12-07 21:34 | NUR ---
patients iv would not flush. iv removed. contacted dr Dorsey per patient request iv left out. Dr Dorsey ok leave IV out change IV Lasix 40 mg daily to PO lasix 40 mg daily. TORBV
[2018-12-07 23:39] VITALS: BP 149/66
[2018-12-08] MEDS: inSUlin ASPART (NovoLOG) 1 UNIT/0.01 ML (CHARGE PER UNIT) SC SCH ×2 (06:22→12:30)
[2018-12-08] MEDS: ENOXAPARIN 40 MG/0.4 ML (LOVENOX) SYR SC SCH (06:23)
[2018-12-08] MEDS: PIOGLITAZONE 30MG (ACTOS) TAB PO SCH (06:23)
[2018-12-08] MEDS: TRIM/SULFAMETH 160/800 (SEPTRA DS) TAB PO SCH (06:23)
[2018-12-08] MEDS: CYANOCOBALAMIN 1,000 MCG (VITAMIN B-12) TABLET PO SCH (06:23)
[2018-12-08 06:28] LABS: BASOPHILS % (AUTO) 0 % (0-10); EOSINOPHILS # (AUTO) 0.1 10^3/uL (0.0-0.3); EOSINOPHILS % (AUTO) 2 % (0-10); HEMATOCRIT 32 % (40-54); HEMOGLOBIN 9.6 G/DL (13.3-17.7); LYMPHOCYTES # (AUTO) 1.1 X 10^3 (1.0-4.0); LYMPHOCYTES % (AUTO) 26 % (12-44); MEAN CORPUSCULAR HEMOGLOBIN 29 PG (25-34); MEAN CORPUSCULAR HGB CONC 30 G/DL (32-36); MEAN CORPUSCULAR VOLUME 96 FL (80-99); MEAN PLATELET VOLUME 10.5 FL (7.4-10.4); MONOCYTES # (AUTO) 0.4 X 10^3 (0.0-1.0); MONOCYTES % (AUTO) 9 % (0-12); NEUTROPHILS # (AUTO) 2.7 X 10^3 (1.8-7.8); NEUTROPHILS % (AUTO) 64 % (42-75); PLATELET COUNT 102 10^3/uL (130-400); RED CELL DISTRIBUTION WIDTH 18.6 % (10.0-14.5); WHITE BLOOD COUNT 4.2 10^3/uL (4.3-11.0)
[2018-12-08 06:45] LABS: BUN/CREATININE RATIO 13; CALCIUM 8.7 MG/DL (8.5-10.1); CARBON DIOXIDE 28 MMOL/L (21-32); CHLORIDE 105 MMOL/L (98-107); CREATININE SERUM 0.77 MG/DL (0.60-1.30); GFR ESTIMATED > 60; GLUCOSE 91 MG/DL (70-105); MAGNESIUM 1.8 MG/DL (1.8-2.4); PHOSPHORUS 3.7 MG/DL (2.3-4.7); POTASSIUM 3.6 MMOL/L (3.6-5.0); SODIUM 141 MMOL/L (135-145)
--- NOTE | 2018-12-08 07:22 | Pulmonary Progress Note ---
Subjective Time Seen by a Provider: 07:22 Subjective/Events-last exam NO complications noted. Sepsis Event Evaluation Height, Weight, BMI Height: 6'7.00" Weight: 360lbs. 8.0oz. 163.943605fy; 42.8 BMI Method:Actual Exam Exam Vital Signs Date Time Temp Pulse Resp B/P (MAP) Pulse Ox O2 Delivery O2 Flow Rate FiO2 12/07/18 23:39 98.7 56 18 149/66 (93) 95 Nasal Cannula 2.00 12/07/18 21:00 94 Nasal Cannula 2.00 12/07/18 17:08 94 Room Air 12/07/18 15:36 97.9 72 18 137/62 (87) 95 Nasal Cannula 2.00 12/07/18 14:35 76 144/67 (92) 96 Nasal Cannula 2.00 12/07/18 09:00 94 Nasal Cannula 2.00 12/07/18 08:00 97.6 65 20 163/71 (101) 94 Nasal Cannula 2.00 I & O 12/08/18 07:00 Intake Total 2280 ml Output Total 4375 ml Balance -2095 ml Height & Weight Height: 6'7.00" Weight: 360lbs. 8.0oz. 163.252151gr; 42.8 BMI Method:Actual General Appearance: No Apparent Distress, WD/WN, Chronically ill, Obese HEENT: PERRL/EOMI, Normal ENT Inspection, Pharynx Normal, Moist Mucous Membranes Neck: Full Range of Motion, Normal Inspection, Non Tender Respiratory: Chest Non Tender, No Accessory Muscle Use, No Respiratory Distress, Crackles (RLL) Cardiovascular: Regular Rate, Rhythm, No Edema, No Gallop, No JVD, No Murmur, Normal Peripheral Pulses Capillary Refill: Less Than 3 Seconds Gastrointestinal: non tender, soft, no organomegaly, no pulsatile mass Extremity: Normal Capillary Refill, Normal Inspection, Normal Range of Motion, Non Tender, No Calf Tenderness, No Pedal Edema Neurologic/Psychiatric: Alert, Oriented x3, No Motor/Sensory Deficits, Normal Mood/Affect Skin: Normal Color, Warm/Dry Lymphatic: No Adenopathy Results Lab Laboratory Tests 12/06/18 07:55 12/07/18 05:00 12/08/18 06:11 Assessment/Plan Assessment/Plan UTI with sepsis-- Last fever was 12/03 of 102.4 - Merrem -Diaz cultured Bacteremia with Ecoli - secondary to prostatitis -Repeat blood cultures - XIN - is negative Metabolic lactic acidosis-- resolved Lung mass- Pt has had a previous lobectomy -PET scan is scheduled at [facility] for December -I d/w radiology and they state wt limit for PET scan is over 400lbs. Will schedule PET scan for next thursday here at [facility] - Check PET scan prior to CT bx . -Will need close F/u as out pt Cholelithiasis -Surgery following DM -restart home insulin Pancytopenia -Oncology following MICHELLE AMADO DO Dec 08, 2018 07:22
[2018-12-08 08:00] VITALS: BP 156/43
[2018-12-08] MEDS: PANTOPRAZOLE 20 MG TABLET (PROTONIX) PO SCH (08:41)
[2018-12-08] MEDS: LORATADINE (CLARITIN) 10 MG TAB PO SCH (08:41)
[2018-12-08] MEDS: MELOXICAM 7.5 MG (MOBIC) TABLET PO SCH (08:41)
[2018-12-08] MEDS: ASPIRIN E.C. 81 MG (ECOTRIN) TAB PO SCH (08:41)
[2018-12-08] MEDS: OMEGA 3 (FISH OIL) 1000 MG CAP PO SCH (08:41)
[2018-12-08] MEDS: TAMSULOSIN 0.4 MG (FLOMAX) CAP PO SCH (08:41)
[2018-12-08] MEDS: SERTRALINE 100 MG (ZOLOFT) TAB PO SCH (08:41)
[2018-12-08] MEDS: LOSARTAN 100 MG (COZAAR) TABLET PO SCH (08:41)
[2018-12-08] MEDS: FINASTERIDE (PROSCAR) 5 MG TAB PO SCH (08:46)
[2018-12-08] MEDS: SILVER SULFADIAZINE 50 GM CREAM TOP SCH (08:47)
[2018-12-08] MEDS: BETAMETHASONE/CLOTRIM CREAM (LOTRISONE) 45 GM TP SCH (08:47)
[2018-12-08] MEDS ORDERED: FUROSEMIDE 40 MG (LASIX) TAB PO SCH (09:00)
[2018-12-08] MEDS ORDERED: meTOproloL SUCCINATE 50 MG (TOPROL XL) TAB PO SCH (09:00)
[2018-12-08] MEDS ORDERED: FUROSEMIDE 40 MG/4 ML INJ (LASIX) IVP SCH (09:00)
[2018-12-08] MEDS ORDERED: METO-370 PO (10:51)
[2018-12-08] MEDS ORDERED: SULF1TAB35 PO (10:51)
[2018-12-08] MEDS ORDERED: FURO40TA4 PO (10:51)
[2018-12-08] MEDS ORDERED: POTA10TA36 PO (10:51)
--- NOTE | 2018-12-08 10:53 | Discharge Summary-Hospitalist ---
Diagnosis/Chief Complaint Date of Admission Nov 30, 2018 at 21:44 Date of Discharge Discharge Date: Dec 08, 2018 Admission Diagnosis Assessment: Sepsis UTI? Prostatitis? Enlarged prostate on CT scan COPD Left lung nodule DM HTN HLP JULIAN BPH Plan: Monitor closely IV abx Levaquin Conferred with Dr Liu and I appreciate his help and Dr Coleman Discharge Diagnosis (1) FUO (fever of unknown origin) Status: Acute (2) Gram-negative bacteremia Status: Acute (3) Prostatitis, acute Status: Acute (4) UTI (urinary tract infection) Status: Acute (5) Sepsis Status: Acute (6) Diabetes mellitus, insulin dependent (IDDM), controlled Status: Chronic (7) JULIAN on CPAP Status: Chronic (8) COPD with exacerbation Status: Chronic (9) Hypertension Status: Chronic (10) GERD (gastroesophageal reflux disease) Status: Chronic (11) Vitamin B 12 deficiency Status: Chronic (12) Osteoarthritis Status: Chronic (13) Hyperlipidemia Status: Chronic (14) Fever Status: Resolved (15) Mass of upper lobe of right lung Status: Acute Discharge Summary Discharge Physical Exam Allergies: Coded Allergies: No Known Drug Allergies (Unverified , 11/26/18) Vitals & I&Os Vital Signs Date Time Temp Pulse Resp B/P (MAP) Pulse Ox O2 Delivery O2 Flow Rate FiO2 12/08/18 13:54 68 18 156/43 94 Nasal Cannula 12/08/18 08:56 1.50 12/08/18 08:00 97.3 General Appearance: No Apparent Distress, WD/WN Respiratory: Chest Non Tender, Lungs Clear, Normal Breath Sounds, No Accessory Muscle Use, No Respiratory Distress Cardiovascular: Regular Rate, Rhythm, No Edema, No Gallop, No JVD, No Murmur, Normal Peripheral Pulses Neurologic/Psychiatric: Alert, Oriented x3, No Motor/Sensory Deficits, Normal Mood/Affect Hospital Course Was the Problem List Reviewed?: Yes Hospital course: Pt had a lengthy hospital course for 9 days after he was admitted for fever of unknown origin after he was placed on broad-spectrum antibiotics and donnelly cultured and CT scan revealed atelectasis of the right lower lobe but right upper lobe lung mass that was concerning for neoplasm. He was doing very well, the source of the fever was assessed to be prostatitis since enlarged prostate on CT scan and along with Dr. Liu, Dr. Coleman and Dr. Curiel he did very well but Pt did have a fever after being placed on Levaquin PO for prostatitis and he was donnelly cultured and E.Coli was captured on blood culture showing resistance to Levaquin. I did have multiple conversations with Dr. Morrison, Dr. Moreira infectious disease and Dr. Hernandes for gallbladder abnormalities on ultrasound only gallstones but no gallbladder wall thickening in addition to Dr. Coleman and Dr. Curiel. Pt was deemed stable, no longer had fever and labs remain stable. Pt was placed on Bactrim at recommendation per Dr. Moreira for prostati tis and genitourinary source of E. Coli in the blood and he will have a close follow-up with blood check on then on Thursday then I will see him in the clinic on Thursday and he will be holding Losartan of 100mg since the elevated Creatinine does have a risk with a combination of Bactrim and Losartan, and he will initiate Lasix of 40 Mg with potassium for 4 days for volume overload. He will have PET scans scheduled for next week and then likely lung biopsy if PET scan is suspicious for neoplastic process. Labs (last 24 hrs) Laboratory Tests 12/07/18 20:21: Glucometer 150H 12/08/18 05:15: Glucometer 91 12/08/18 06:11: White Blood Count 4.2L, Red Blood Count 3.32L, Hemoglobin 9.6L, Hematocrit 32L, Mean Corpuscular Volume 96, Mean Corpuscular Hemoglobin 29, Mean Corpuscular Hemoglobin Concent 30L, Red Cell Distribution Width 18.6H, Platelet Count 102L, Mean Platelet Volume 10.5H, Neutrophils (%) (Auto) 64, Lymphocytes (%) (Auto) 26, Monocytes (%) (Auto) 9, Eosinophils (%) (Auto) 2, Basophils (%) (Auto) 0, Neutrophils # (Auto) 2.7, Lymphocytes # (Auto) 1.1, Monocytes # (Auto) 0.4, Eosinophils # (Auto) 0.1, Basophils # (Auto) 0.0, Sodium Level 141, Potassium Level 3.6, Chloride Level 105, Carbon Dioxide Level 28, Anion Gap 8, Blood Urea Nitrogen 10, Creatinine 0.77, Estimat Glomerular Filtration Rate > 60, BUN/Creatinine Ratio 13, Glucose Level 91, Calcium Level 8.7, Phosphorus Level 3.7, Magnesium Level 1.8 12/08/18 11:52: Glucometer 209H Microbiology 12/07/18 Blood Culture - Preliminary, Resulted No growth 12/04/18 MRSA Screen - Final, Complete MRSA not isolated 11/30/18 Urine Culture - Final, Complete NO GROWTH Patient resulted labs reviewed. Pending Labs Discussion & Recommendations Discharge Planning: <30 minutes discharge planning Discharge Home Medications: Active Scripts Active Bactrim Ds Tablet (Sulfamethoxazole/Trimethoprim) 1 Each Tablet 1 Each PO BID Potassium Chloride 10 Meq Tab.er.prt 10 Meq PO DAILY Furosemide 40 Mg Tablet 40 Mg PO DAILY Metoprolol Succinate 50 Mg Tab.er.24h 50 Mg PO DAILY Silvadene (Silver Sulfadiazine) 20 Gm Cream..g. 0 Gm TOP DAILY 7 Days Clotrimazole-Betamethasone Crm (Clotrimazole/Betamethasone Dip) 15 Gm Cream..g. 0 Gm TP BID 7 Days Reported Proair Hfa (Albuterol Sulfate) 1 Puff Puff 2 Puff INH Q4H PRN Aspirin EC (Aspirin) 81 Mg Tablet.dr 81 Mg PO DAILY Sertraline HCl 100 Mg Tablet 100 Mg PO DAILY Pioglitazone HCl 15 Mg Tablet 15 Mg PO DAILY Omeprazole 20 Mg Capsule.dr 20 Mg PO DAILY Meloxicam 7.5 Mg Tablet 7.5 Mg PO DAILY Cetirizine HCl 10 Mg Tablet 10 Mg PO DAILY Fish Oil 1,000 mg Capsule ([place] 3 Polyunsat Fatty Acids) 1,000 Mg Cap 1,000 Mg PO DAILY Vitamin B-12 (Cyanocobalamin (Vitamin B-12)) 2,000 Mcg Tablet 2,000 Mcg PO DAILY Ocuvite Adult 50 Plus Softgel (C,E,Zinc,Copper 11/Vqoxb4m/Lut) 1 Each Capsule 1 Cap PO DAILY Bevespi Aerosphere Inhaler (Glycopyrrolate/Formoterol Fum) 10.7 Gm Hfa.aer.ad 2 Puff INH BID Lantus (Insulin Glargine,Hum.rec.anlog) 100 Unit/1 Ml Vial 40 Unit SQ DAILY Humalog (Insulin Lispro) 100 Unit/1 Ml Vial 30 Units SC TIDAC Virtussin AC Liquid (Guaifenesin/Codeine Phosphate) 118 Ml Liquid 5 Ml PO Q4H PRN Flomax (Tamsulosin HCl) 0.4 Mg Cap 0.4 Mg PO DAILY Finasteride 5 Mg Tablet 5 Mg PO DAILY Lantus (Insulin Glargine,Hum.rec.anlog) 100 Unit/1 Ml Vial 80 Units SC HS Instructions to patient/family Please see electronic discharge instructions given to patient. Clinical Quality Measures DVT/VTE Risk/Contraindication: Risk Factor Score Per Nursin RFS Level Per Nursing on Admit: 4+=Very High Other: see interventions Problem Qualifiers (1) UTI (urinary tract infection): Urinary tract infection type: acute cystitis Hematuria presence: without hematuria Qualified Codes: N30.00 - Acute cystitis without hematuria (2) Sepsis: Sepsis type: sepsis due to unspecified organism Qualified Codes: A41.9 - Sepsis, unspecified organism (3) Hypertension: Hypertension type: essential hypertension Qualified Codes: I10 - Essential (primary) hypertension (4) GERD (gastroesophageal reflux disease): Esophagitis presence: without esophagitis Qualified Codes: K21.9 - Gastro- esophageal reflux disease without esophagitis (5) Osteoarthritis: Osteoarthritis location: unspecified site Osteoarthritis type: unspecified Qualified Codes: M19.90 - Unspecified osteoarthritis, unspecified site (6) Hyperlipidemia: Hyperlipidemia type: mixed hyperlipidemia Qualified Codes: E78.2 - Mixed hyperlipidemia (7) Fever: Fever type: unspecified Qualified Codes: R50.9 - Fever, unspecified RAMEZ NGO DO Dec 08, 2018 10:53
--- NOTE | 2018-12-08 13:51 | NUR ---
PT STABLE AND READY FOR DISCHARGE PER DR NGO ORDERS. WRITTEN AND VERBAL D/C INSTRUCTIONS GONE OVER WITH PT. PT WAS GIVEN SCHEDULED F/U APPOINTMENTS. SCHEDULED PET SCAN APPOINTMENT AND INSTRUCTIONS GIVEN TO PT. PT VERBALIZED UNDERSTANDING OF D/C INSTRUCTIONS. PT WAS TAKEN VIA WHEELCHAIR TO PRIVATE VEHICLE. NO FURTHER NEEDS IDENTIFIED.
[2018-12-08 13:54] VITALS: BP 156/43
--- NOTE | 2018-12-08 14:52 | Progress Note-Cardiology ---
Cardiology SOAP Progress Note Subjective: Feels better No cp or palp or syncope or shortness of breath Objective: I&O/Vital Signs 12/08/18 12/08/18 12/08/18 12/08/18 08:00 08:49 08:56 13:54 Temp 97.3 Pulse 68 68 Resp 18 18 B/P (MAP) 156/43 (80) 156/43 Pulse Ox 95 95 94 94 O2 Delivery Nasal Cannula Nasal Cannula Nasal Cannula Nasal Cannula O2 Flow Rate 1.50 1.00 1.50 12/08/18 00:00 Intake Total 2130 ml Output Total 4100 ml Balance -1970 ml Weight (Pounds): 360 Weight (Ounces): 8.0 Weight (Calculated Kilograms): 163.206332 Constitutional: AAO x 3, well-developed, well-nourished Respiratory: No accessory muscle use, No respiratory distress; chest expansion is symmetric, chest is bilaterally symmetric, other (diminished breath sounds with fair air entry) Cardiovascular: regular rate-rhythm, S1 and S2, systolic murmur (faint LENNOX at card base) Gastrointestional: No tender; soft; No guarding, No rebound; audible bowel sounds Extremities: swelling (mild edema of the legs); No clubbing, No cyanosis Neurologic/Psychiatric: grossly intact Skin: No rash on exposed areas; ulcerations on exposed areas (multiple dressings to bilat LE - D&I - not removed) Results/Procedures: Labs Laboratory Tests 12/07/18 15:35: Glucometer 208H 12/07/18 20:21: Glucometer 150H 12/08/18 05:15: Glucometer 91 12/08/18 06:11: White Blood Count 4.2L, Red Blood Count 3.32L, Hemoglobin 9.6L, Hematocrit 32L, Mean Corpuscular Volume 96, Mean Corpuscular Hemoglobin 29, Mean Corpuscular Hemoglobin Concent 30L, Red Cell Distribution Width 18.6H, Platelet Count 102L, Mean Platelet Volume 10.5H, Neutrophils (%) (Auto) 64, Lymphocytes (%) (Auto) 26, Monocytes (%) (Auto) 9, Eosinophils (%) (Auto) 2, Basophils (%) (Auto) 0, Neutrophils # (Auto) 2.7, Lymphocytes # (Auto) 1.1, Monocytes # (Auto) 0.4, Eosinophils # (Auto) 0.1, Basophils # (Auto) 0.0, Sodium Level 141, Potassium Level 3.6, Chloride Level 105, Carbon Dioxide Level 28, Anion Gap 8, Blood Urea Nitrogen 10, Creatinine 0.77, Estimat Glomerular Filtration Rate > 60, BUN/Creatinine Ratio 13, Glucose Level 91, Calcium Level 8.7, Phosphorus Level 3.7, Magnesium Level 1.8 12/08/18 11:52: Glucometer 209H Microbiology 12/03/18 Blood Culture - Preliminary, Resulted No growth 12/04/18 MRSA Screen - Final, Complete MRSA not isolated 11/30/18 Urine Culture - Final, Complete NO GROWTH Laboratory Tests 12/07/18 05:00 12/08/18 06:11 A/P: Assessment: UTI with sepsis (recurrent sepsis), managed by Dr Da Silva Pulm lesion/mass, managed by Dr Da Silva and Dr Coleman H/o COPD JULIAN Type 2 [place] (mild troponin elevation during earlier admission of 11/26/18) Mild anemia of undetermined etiology, managed by Dr Da Silva Hypertension - not well controlle Hyperlipidemia, by history Diabetes mellitus II, followed and managed by primary care physician Obesity, BMI is approx 41 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 XIN of 12/05/18: normal LVEF, tiny PFO with tiny L to R shunt, mild MR, no evidence of endocarditis Subcutaneous mass in the right subclavicular region, likely a lipoma per u/s of December 06, 2018 Mass in the right apex seen previously is again evident. This finding is worrisome for neoplasm per CT of the chest on 12-04-18 - management per Dr. Coleman Plan: * Dr Da Silva is discharging him today * Outpt f/u is advised EDWIGE MORALES MD FACP FAC CCDS Dec 08, 2018 14:52
== END 2018-12-08 13:51 | disposition home or self-care (01) | DRG 872 ==
LOC: EDUNIT# 20:00 → ER 20:01 → ICU 21:44 → 4TH 12-02 08:31
PROVIDERS: ADMIT Internal Medicine; ATTEND Internal Medicine
DX: A41.9 Sepsis, unspecified organism (principal); N30.00 Acute cystitis without hematuria; N41.0 Acute prostatitis; J44.1 Chronic obstructive pulmonary disease with (acute) exacerbation; J44.0 Chronic obstructive pulmonary disease with (acute) lower respiratory infection; E87.2 Acidosis; Z68.41 Body mass index [BMI] 40.0-44.9, adult; J98.11 Atelectasis; N47.1 Phimosis; I10 Essential (primary) hypertension; E11.9 Type 2 diabetes mellitus without complications; R91.1 Solitary pulmonary nodule; G47.33 Obstructive sleep apnea (adult) (pediatric); K21.9 Gastro-esophageal reflux disease without esophagitis; E78.2 Mixed hyperlipidemia; N40.0 Benign prostatic hyperplasia without lower urinary tract symptoms; N28.1 Cyst of kidney, acquired; M19.91 Primary osteoarthritis, unspecified site; H93.19 Tinnitus, unspecified ear; E53.8 Deficiency of other specified B group vitamins; Z87.891 Personal history of nicotine dependence; Z79.4 Long term (current) use of insulin; Z86.711 Personal history of pulmonary embolism; Z87.442 Personal history of urinary calculi; Z87.01 Personal history of pneumonia (recurrent); E66.01 Morbid (severe) obesity due to excess calories; K80.20 Calculus of gallbladder without cholecystitis without obstruction; B96.20 Unspecified Escherichia coli [E. coli] as the cause of diseases classified elsewhere; R16.2 Hepatomegaly with splenomegaly, not elsewhere classified; D69.6 Thrombocytopenia, unspecified
CPT/HCPCS: 36415; 71045; 71046; 71275; 74175; 74177; 76604; 76700; 80048; 80053; 80202; 81000; 82150; 82962; 83605; 83690; 83735; 83880; 84100; 84153; 84439; 84443; 84481; 85007; 85025; 85027; 87040; 87081; 87088; 87186; 93306; 93312; 93320; 93325; 96361; 96365; 96375

== ENCOUNTER 2018-12-09 15:40 | Inpatient (IN) | payer MEDICARE, OTHER ==
[~2018-12-09] VITALS: Ht 200.7 cm; Wt 159.4 kg
[~2018-12-09 15:40] MED LIST changes: -BETH10TA PO; -CEFE2FRO IV; -ENOX40DI13 SQ
[2018-12-09] MEDS ORDERED: ACETAMINOPHEN 500 MG TAB (TYLENOL) PO PRN ×2 (16:00→20:30)
--- NOTE | 2018-12-09 16:07 | NUR ---
PT HERE BY SELF ALERT [facility] 15. PT APPARANTELY WAS IN THE HOPSITAL RECENTLY FOR ABD PAIN AND FEVER. UNK TO THE DX. CURRENTLY PT C/O ABD PAIN AND BACK PAIN RATING EQUALLY AT 6. ALSO C/O NAUSEA AND DENIES VOMITING. PT HAS DRY HEAVES IN ER. DENIES DIARRHEA BUT SAYS BEEN HAVING " LOOSE STOOL". DENIES CONSTIPATION. ALSO C/O DYSPNEA AND RESP ARE SHALLOW NONLABORED TO SLIGHTLY LABORED. PT ALREADY ON TELE SHOWS SR 82 BP MACHINE IS 166/92 P OX 96 AND IS ON O2 ALREADY 2/N/C. PT HAS EYES CLOSED AND IS MOANING GROANING AND REASTLESS IN THE BED. PT REFUSED CLOTHES OFF. LUNGS CTA WITH DECREAASED AERATION ALL GODOY BILATERALLY. ABD FIRM AND DISTENDED PT APPEARS OBESE AND OVERWEIGHT IN ABD. TENDER TO PALPATION ALLQUAFDS. IT APPEARS PT HAS HERNIA IN ABD WHICH HE SAYS HE HAS. NEG PULSATING MASSESS NOTED. PT RELATES HE USED TO HAVE A COLOSTOMY.
[2018-12-09 16:15] LABS: BASOPHILS % (AUTO) 0 % (0-10); EOSINOPHILS # (AUTO) 0.1 10^3/uL (0.0-0.3); EOSINOPHILS % (AUTO) 1 % (0-10); HEMATOCRIT 39 % (40-54); HEMOGLOBIN 11.9 G/DL (13.3-17.7); LYMPHOCYTES # (AUTO) 0.4 X 10^3 (1.0-4.0); LYMPHOCYTES % (AUTO) 7 % (12-44); MEAN CORPUSCULAR HEMOGLOBIN 29 PG (25-34); MEAN CORPUSCULAR HGB CONC 30 G/DL (32-36); MEAN CORPUSCULAR VOLUME 95 FL (80-99); MEAN PLATELET VOLUME 10.7 FL (7.4-10.4); MONOCYTES # (AUTO) 0.2 X 10^3 (0.0-1.0); MONOCYTES % (AUTO) 3 % (0-12); NEUTROPHILS # (AUTO) 5.8 X 10^3 (1.8-7.8); NEUTROPHILS % (AUTO) 89 % (42-75); PLATELET COUNT 141 10^3/uL (130-400); RED CELL DISTRIBUTION WIDTH 19.2 % (10.0-14.5); WHITE BLOOD COUNT 6.5 10^3/uL (4.3-11.0)
[2018-12-09 16:16] LABS: BILIRUBIN,URINE NEGATIVE (NEGATIVE); CLARITY,URINE CLEAR; COLOR,URINE YELLOW; GLUCOSE, URINE (UA) NEGATIVE (NEGATIVE); KETONES,URINE NEGATIVE (NEGATIVE); LEUKOCYTE ESTERASE ,URINE NEGATIVE (NEGATIVE); NITRITE,URINE NEGATIVE (NEGATIVE); PH,URINE 8 (5-9); PROTEIN,URINE NEGATIVE (NEGATIVE); UROBILINOGEN,URINE 4 MG/DL (NORMAL)
[2018-12-09 16:28] LABS: INR 1.1 (0.8-1.4); PROTHROMBIN TIME PATIENT 14.1 SEC (12.2-14.7)
[2018-12-09] MEDS ORDERED: CEFEPIME INJECTION 2,000 MG in WATER (STERILE) FOR INJECTION 20 ML IV STA (16:30)
[2018-12-09 16:31] LABS: BACTERIA,URINE NEGATIVE /HPF
[2018-12-09] MEDS ORDERED: FAMOTIDINE 20MG/2ML IV (PEPCID) IV STA (16:32)
--- NOTE | 2018-12-09 16:32 | ED General ---
General Chief Complaint: Fever-Adult/Adol Stated Complaint: FEVER,CHILLS Nursing Triage Note: PT PRESENTS TO THE ER VIA WC WITH COMPLAINTS OF FEVER AND CHILLS. WAS JUST DISCHARGED FROM THE HOSPITAL YESTERDAY. HAS SHORTNESS OF AIR UPON LAYING DOWN. Nursing Sepsis Screen: No Definite Risk Source of Information: Patient Exam Limitations: No Limitations History of Present Illness Date Seen by Provider: Dec 09, 2018 Time Seen by Provider: 15:45 Initial Comments Here with fever and shaking chills. Onset this afternoon. He was visiting his in the hospital. He was actually just discharged from the hospital yesterday and had fever that they believe was related to prostatitis and urinary tract infection. He was also found to have a lung mass that has been incompletely worked up. He did have XIN and showed no evidence of vegetation. He is currently on Bactrim because the Escherichia coli infection that does have resistance to fluoroquinolones but not cephalosporins or sulfa based antibiotics. Previously was on meropenem. States he was doing okay for a little bit but then started with the chills today. Also has nausea and some abdominal discomfort. States that he is urinating but only small amounts. Did have some difficulty with bowel movements but that has been better. Patient reports 5 out of 10 pain to his stomach and states it feels like it's tight. Timing/Duration: 1 Hour Severity: Moderate, Severe Associated Systoms: No Chest Pain, No Cough; Fever/Chills, Nausea/Vomiting, Shortness of Air, Weakness Allergies and Home Medications Allergies Coded Allergies: No Known Drug Allergies (Unverified , 11/26/18) Home Medications Albuterol Sulfate 1 Puff Puff, 2 PUFF INH Q4H PRN for SHORTNESS OF BREATH, (Reported) Aspirin 81 Mg Tablet.dr, 81 MG PO DAILY, (Reported) C,E,Zinc,Copper 11/Mdvwn5b/Lut 1 Each Capsule, 1 CAP PO DAILY, (Reported) Cetirizine HCl 10 Mg Tablet, 10 MG PO DAILY, (Reported) Clotrimazole/Betamethasone Dip 15 Gm Cream..g., 0 GM TP BID Prescribed by: RAMEZ NGO on 12/03/18 5013 Cyanocobalamin (Vitamin B-12) 2,000 Mcg Tablet, 2,000 MCG PO DAILY, (Reported) Finasteride 5 Mg Tablet, 5 MG PO DAILY, (Reported) Furosemide 40 Mg Tablet, 40 MG PO DAILY Prescribed by: RAMEZ NGO on 12/08/18 1051 Glycopyrrolate/Formoterol Fum 10.7 Gm Hfa.aer.ad, 2 PUFF INH BID, (Reported) Guaifenesin/Codeine Phosphate 118 Ml Liquid, 5 ML PO Q4H PRN for COUGH, (Reported) Insulin Glargine,Hum.rec.anlog 100 Unit/1 Ml Vial, 80 UNITS SC HS, (Reported) Insulin Glargine,Hum.rec.anlog 100 Unit/1 Ml Vial, 40 UNIT SQ DAILY, (Reported) Insulin Lispro 100 Unit/1 Ml Vial, 30 UNITS SC TIDAC, (Reported) Meloxicam 7.5 Mg Tablet, 7.5 MG PO DAILY, (Reported) Metoprolol Succinate 50 Mg Tab.er.24h, 50 MG PO DAILY Prescribed by: RAMEZ NGO on 12/08/18 1051 [place] 3 Polyunsat Fatty Acids 1,000 Mg Cap, 1,000 MG PO DAILY, (Reported) Omeprazole 20 Mg Capsule.dr, 20 MG PO DAILY, (Reported) Pioglitazone HCl 15 Mg Tablet, 15 MG PO DAILY, (Reported) Potassium Chloride 10 Meq Tab.er.prt, 10 MEQ PO DAILY Prescribed by: RAMEZ NGO on 12/08/18 105 Sertraline HCl 100 Mg Tablet, 100 MG PO DAILY, (Reported) Silver Sulfadiazine 20 Gm Cream..g., 0 GM TOP DAILY Prescribed by: RAMEZ NGO on 12/03/18 1137 Sulfamethoxazole/Trimethoprim 1 Each Tablet, 1 EACH PO BID Prescribed by: RAMEZ NGO on 12/08/18 1051 Tamsulosin HCl 0.4 Mg Cap, 0.4 MG PO DAILY, (Reported) Patient Home Medication List Home Medication List Reviewed: Yes Review of Systems Review of Systems Constitutional: see HPI, chills, fever, weakness EENTM: nose congestion; No throat pain Respiratory: No cough; short of breath Cardiovascular: No chest pain; edema Gastrointestinal: abdominal pain (Epigastric), nausea, vomiting Genitourinary: see HPI, decreased output; No dysuria Musculoskeletal: back pain (chronic); No neck pain Skin: no symptoms reported Psychiatric/Neurological: See HPI All Other Systems Reviewed Negative Unless Noted: Yes Past Nizsbna-Ybibwy-Cinrcc Hx Past Med/Social Hx: Reviewed Nursing Past Med/Soc Hx Patient Social History Alcohol Use: Denies Use Recreational Drug Use: No Smoking Status: Former Smoker Former Smoker, Quit: Jun 15, 1999 2nd Hand Smoke Exposure: No Recent Foreign Travel: No Contact w/Someone Who Travel: No Recent Infectious Disease Expo: No Recent Hopitalizations: Yes Immunizations Up To Date PED Vaccines UTD: Yes Date of Pneumonia Vaccine: Mar 28, 2017 Seasonal Allergies Seasonal Allergies: No Past Medical History Surgeries: Yes Abdominal, Orthopedic Respiratory: Yes Pneumonia, Pulmonary Embolism, COPD Cardiac: Yes High Cholesterol, Hypertension Neurological: No Sexually Transmitted Disease: No HIV/AIDS: No Genitourinary: Yes Benign Prostatic Hyperpl, Bladder Infection, Kidney Stones Abdominal Hernia, Diverticulosis, Gall Bladder Disease (gallstones) Musculoskeletal: Yes Arthritis, Fractures Endocrine: Yes Diabetes, Insulin dep HEENT: Yes Cataract, Tinnitis Loss of Vision: Bilateral Hearing Impairment: Hard of Hearing Cancer: No Psychosocial: Yes Sleep Difficulties Integumentary: No Blood Disorders: No Adverse Reaction/Blood Tranf: No Family Medical History Reviewed Nursing Family Hx Patient reports no known family medical history. No Pertinent Family Hx Physical Exam-Suspected Sepsis Physical Exam Vital Signs Vital Signs - First Documented 12/09/18 15:42 Temp 101.8 Pulse 87 Resp 22 B/P (MAP) 180/90 (120) Pulse Ox 96 O2 Delivery Nasal Cannula Capillary Refill : Less Than 3 Seconds Blood Pressure Mean: 120 Height, Weight, BMI Height: 6'7.00" Weight: 360lbs. 0.0oz. 163.369936lx; 42.8 BMI Method:Stated General Appearance: WD/WN, Moderate Distress, Obese HEENT: PERRL/EOMI, Pharynx Normal Neck: Full Range of Motion, Normal Inspection, Non Tender, Supple Respiratory: Lungs Clear, Normal Breath Sounds Cardiovascular: Regular Rate, Rhythm, No Murmur Gastrointestinal: Soft, Tenderness (epigastric and upper abdominal region) Back: Normal Inspection, No CVA Tenderness, No Vertebral Tenderness Extremity: Normal Range of Motion, Non Tender Neurologic/Psychiatric: Alert, Oriented x3 Skin: normal color, warm/dry Focused Exam Lactate Level 12/09/18 15:52: Lactic Acid Level 1.86 Lactic Acid Level Laboratory Tests Test 12/09/18 15:52 Lactic Acid Level 1.86 MMOL/L (0.50-2.00) Progress/Results/Core Measures Suspected Sepsis Recent Fever Within 48 Hours: No Infection Criteria Present: None New/Unexplained Altered Menta: No Sepsis Screen: No Definite Risk SIRS Temperature:101.8 Pulse: 87 Respiratory Rate: 22 Laboratory Tests 12/09/18 15:52: White Blood Count 6.5 Blood Pressure 180 /90 Mean: 120 12/09/18 15:52: Lactic Acid Level 1.86 Laboratory Tests 12/09/18 15:52: Creatinine 1.01, INR Comment 1.1, Platelet Count 141, Total Bilirubin 2.2H Results/Orders Lab Results Laboratory Tests Test 12/09/18 15:35 12/09/18 15:52 Range/Units Urine Color YELLOW Urine Clarity CLEAR Urine pH 8 5-9 Urine Specific Art 1.010 L 1.016-1.022 Urine Protein NEGATIVE NEGATIVE Urine Glucose (UA) NEGATIVE NEGATIVE Urine Ketones NEGATIVE NEGATIVE Urine Nitrite NEGATIVE NEGATIVE Urine Bilirubin NEGATIVE NEGATIVE Urine Urobilinogen 4 H NORMAL MG/DL Urine Leukocyte Esterase NEGATIVE NEGATIVE Urine RBC (Auto) NEGATIVE NEGATIVE Urine RBC 2-5 H /HPF Urine WBC NONE /HPF Urine Squamous Epithelial Cells 2-5 /HPF Urine Crystals NONE /LPF Urine Bacteria NEGATIVE /HPF Urine Casts NONE /LPF Urine Mucus NEGATIVE /LPF Urine Culture Indicated NO White Blood Count 6.5 4.3-11.0 10^3/uL Red Blood Count 4.13 L 4.35-5.85 10^6/uL Hemoglobin 11.9 #L 13.3-17.7 G/DL Hematocrit 39 L 40-54 % Mean Corpuscular Volume 95 80-99 FL Mean Corpuscular Hemoglobin 29 25-34 PG Mean Corpuscular Hemoglobin Concent 30 L 32-36 G/DL Red Cell Distribution Width 19.2 H 10.0-14.5 % Platelet Count 141 130-400 10^3/uL Mean Platelet Volume 10.7 H 7.4-10.4 FL Neutrophils (%) (Auto) 89 H 42-75 % Lymphocytes (%) (Auto) 7 L 12-44 % Monocytes (%) (Auto) 3 0-12 % Eosinophils (%) (Auto) 1 0-10 % Basophils (%) (Auto) 0 0-10 % Neutrophils # (Auto) 5.8 1.8-7.8 X 10^3 Lymphocytes # (Auto) 0.4 L 1.0-4.0 X 10^3 Monocytes # (Auto) 0.2 0.0-1.0 X 10^3 Eosinophils # (Auto) 0.1 0.0-0.3 10^3/uL Basophils # (Auto) 0.0 0.0-0.1 10^3/uL Neutrophils % (Manual) 82 % Lymphocytes % (Manual) 11 % Monocytes % (Manual) 4 % Eosinophils % (Manual) 1 % Band Neutrophils 2 % Polychromasia MODERATE Anisocytosis SLIGHT Prothrombin Time 14.1 12.2-14.7 SEC INR Comment 1.1 0.8-1.4 Activated Partial Thromboplast Time 33 24-35 SEC Sodium Level 138 135-145 MMOL/L Potassium Level 4.1 3.6-5.0 MMOL/L Chloride Level 99 98-107 MMOL/L Carbon Dioxide Level 29 21-32 MMOL/L Anion Gap 10 5-14 MMOL/L Blood Urea Nitrogen 12 7-18 MG/DL Creatinine 1.01 0.60-1.30 MG/DL Estimat Glomerular Filtration Rate > 60 BUN/Creatinine Ratio 12 Glucose Level 174 H 70-105 MG/DL Lactic Acid Level 1.86 0.50-2.00 MMOL/L Calcium Level 9.6 8.5-10.1 MG/DL Corrected Calcium 9.5 8.5-10.1 MG/DL Total Bilirubin 2.2 H 0.1-1.0 MG/DL Aspartate Amino Transf (AST/SGOT) 18 5-34 U/L Alanine Aminotransferase (ALT/SGPT) 10 0-55 U/L Alkaline Phosphatase 115 40-136 U/L Total Protein 7.4 6.4-8.2 GM/DL Albumin 4.1 3.2-4.5 GM/DL My Orders Orders - CORNEL JO MD Cbc With Automated Diff (12/09/18 15:52) Comprehensive Metabolic Panel (12/09/18 15:52) Blood Culture (12/09/18 15:52) Sputum Culture (12/09/18 15:52) Urinalysis (12/09/18 15:52) Urine Culture (12/09/18 15:52) Protime With Inr (12/09/18 15:52) Partial Thromboplastin Time (12/09/18 15:52) Chest 1 View, Ap/Pa Only (12/09/18 15:52) Acetaminophen Tablet (Tylenol Tablet) (12/09/18 16:00) Ed Iv/Invasive Line Start (12/09/18 15:52) Ed Iv/Invasive Line Start (12/09/18 15:52) Vital Signs Adult Sepsis Patie Q15M (12/09/18 15:52) O2 (12/09/18 15:52) Remove Rings In Anticipation O (12/09/18 15:52) Lactic Acid Analyzer (12/09/18 15:52) Manual Differential (12/09/18 15:52) Cefepime Injection (Maxipime Injection) (12/09/18 16:30) Ondansetron Injection (Zofran Injectio (12/09/18 16:45) Famotidine Injection (Pepcid Injection) (12/09/18 16:32) Us Gallbladder [id number] (12/09/18 16:38) Water (Sterile) For Injection (Sterile W (12/09/18 16:35) Fentanyl Injection (Sublimaze Injection (12/09/18 17:03) Promethazine Injection (Phenergan Injec (12/09/18 17:12) Promethazine Injection (Phenergan Injec (12/09/18 17:08) Medications Given in ED Current Medications Medications Dose Ordered Sig/Carolin Route Start Time Stop Time Status Last Admin Dose Admin Acetaminophen 1,000 mg ONCE PRN PO 12/09/18 16:00 12/09/18 16:42 DC 12/09/18 16:16 1,000 MG Vital Signs/I&O 12/09/18 12/09/18 15:42 17:10 Temp 101.8 101.8 Pulse 87 Resp 22 B/P (MAP) 180/90 (120) Pulse Ox 96 O2 Delivery Nasal Cannula Capillary Refill : Less Than 3 Seconds Blood Pressure Mean: 120 Progress Note : Progress Note Seen and evaluated on arrival. IV, labs, chest x-ray and UA ordered. Blood cultures and lactic acid ordered. Septic workup initiated. 1630: I did discuss the case with Dr. Ngo and Dr. Hernandes regarding his recent hospitalization. He did have significant treatment for his culture positive UTI and blood with Escherichia coli. It was resistant to fluoroquinolones but sensitive to cephalosporins as well as Zosyn and meropenem. He does have lung mass that still needs further workup with CAT scan. Does have history of gallstones with sludge. We will go ahead and initiate cefepime 2 g IV now and get ultrasound of the gallbladder as his total bilirubin is elevated. Patient did receive Tylenol 1 g by mouth. He does have nausea and vomiting and so did get Zosyn 8 mg IV and Pepcid 20 mg IV. There was concern of fluid overload on previous hospitalization so we will be judicious with fluids. Patient's blood pressure is 180 systolic currently. We will monitor this. 1800: Did order ultrasound and this shows increasing gallbladder wall thickening as well as common bile duct of 4.7 mm. Given his refractory infection, gallbladder certainly a source including gallstones. We will get a HIDA scan tomorrow but I have talked to Dr. Hernandes and he believes that this may be the source as well and he is anticipating taking the patient to the OR tomorrow. He agrees with admission and consult status with him going to the OR tomorrow. Patient to be admitted to Dr. Ngo. I have re- updated her on all of concerns and she agrees for admission. We will continue cefepime. Patient did receive fentanyl dosing at 50 g IV as well as Phenergan 12.5 mg IV for pain and persistent vomiting. I did discuss all the findings and concerns with the patient who agrees with the plan. Admit, inpatient status. Diagnostic Imaging Diagonstic Imaging: Xray Plain Films/CT/US/NM/MRI: chest Comments NAME: ISELA YEE Kaylie [facility] REC#: [id number] PT STATUS: REG ER : 1945 PHYSICIAN: CORNEL JO MD ADMIT DATE: 12/09/18/ER Draft Date of Exam:12/09/18 CHEST 1 VIEW, AP/PA ONLY INDICATION: Fever, chills, nausea and vomiting. COMPARISON: 12/04/2018. FINDINGS: Heart is mildly enlarged, increased from prior. There is prominence of the central pulmonary vascularity. There is some thickening of the central airways. There is no cindy alveolar consolidation. No effusion or pneumothorax. IMPRESSION: 1. Thickening of the airways may reflect a viral pattern or reactive airway disease. 2. There is some mild cardiomegaly and vascular congestion but no pleural fluid or cindy edema. Dictated on workstation # [id number] Dict: 12/09/18 1641 Trans: 12/09/18 1650 [id number] Interpreted by: DIMITRIS CHAVEZ Electronically signed by: Carline Imaging: Ultrasound Plain Films/CT/US/NM/MRI: abdomen Comments [facility], [place] NAME: ISELA YEE [facility] REC#: [id number] PT STATUS: REG ER : 1945 PHYSICIAN: CORNEL JO MD ADMIT DATE: 12/09/18/ER Draft Date of Exam:12/09/18 US GALLBLADDER [id number] REASON FOR EXAM: Fever, chills, history of cholelithiasis. COMPARISON: 12/06/2018. TECHNIQUE: Grayscale and Doppler ultrasound performed in the right upper quadrant of the abdomen to evaluate the liver and gallbladder. FINDINGS: The liver is large, measuring 24.2 cm in size. The liver echogenicity is within normal limits. There are no focal lesions. No intrahepatic biliary dilatation is present. The common bile duct is not dilated and measures 4 mm. The main portal vein is not well seen. There are multiple small shadowing stones in the gallbladder as well as sludge. No gallbladder wall thickening is seen. Sonographic Ang's sign is negative. The small visualized portion of the head of the pancreas is within normal limits. The body and tail of the pancreas are not well visualized due to overlying bowel gas. The right kidney measures approximately 13.1 cm in length and has a normal appearance, although partially obscured by bowel gas. IMPRESSION: 1. Cholelithiasis and gallbladder sludge with no other sonographic findings of cholecystitis. 2. Hepatomegaly. Dictated on workstation # [id number] Dict: 12/09/18 1739 Trans: 12/09/18 1745 PJ [id number] Interpreted by: DANISHA ZAVALA MD Electronically signed by: Departure Communication (Admissions) Time/Spoke to Admitting Phy: 16:30 Time/Spoke to Consulting Phy: 16:30 Impression Primary Impression: Cholecystitis, acute with cholelithiasis Qualified Codes: K80.00 - Calculus of gallbladder with acute cholecystitis without obstruction Additional Impressions: Fever and chills Nausea and vomiting Qualified Codes: R11.2 - Nausea with vomiting, unspecified Lung mass Disposition: ADMITTED INPATIENT Condition: Stable Admissions Decision to Admit Reason: Admit from ER (General) Decision to Admit/Date: Dec 09, 2018 Time/Decision to Admit Time: 16:30 Departure-Patient Inst. Referrals: RAMEZ NGO DO (PCP/Family) Primary Care Physician CORNEL JO MD Dec 09, 2018 16:32
[2018-12-09 16:35] LABS: ALANINE AMINOTRANSFERASE 10 U/L (0-55); ALBUMIN 4.1 GM/DL (3.2-4.5); ALKALINE PHOSPHATASE 115 U/L (40-136); BILIRUBIN,TOTAL 2.2 MG/DL (0.1-1.0); BUN/CREATININE RATIO 12; CALCIUM 9.6 MG/DL (8.5-10.1); CARBON DIOXIDE 29 MMOL/L (21-32); CHLORIDE 99 MMOL/L (98-107); CREATININE SERUM 1.01 MG/DL (0.60-1.30); GFR ESTIMATED > 60; GLUCOSE 174 MG/DL (70-105); POTASSIUM 4.1 MMOL/L (3.6-5.0); SODIUM 138 MMOL/L (135-145); TOTAL PROTEIN 7.4 GM/DL (6.4-8.2)
[2018-12-09] MEDS ORDERED: WATER (STERILE) FOR INJECTION 10 ML ONE (16:35)
[2018-12-09] MEDS ORDERED: ONDANSETRON 4 MG/2 ML (SDV) Z0FRAN IVP ONE (16:45)
[2018-12-09 16:47] LABS: ANISOCYTOSIS SLIGHT; BAND NEUTROPHILS 2 %; EOSINOPHILS % (MANUAL) 1 %; LYMPHOCYTES % (MANUAL) 11 %; MONOCYTES % (MANUAL) 4 %; NEUTROPHILS % (MANUAL) 82 %; POLYCHROMASIA MODERATE
--- NOTE | 2018-12-09 16:51 | Diagnostic Imaging Report ---
INDICATION: Fever, chills, nausea and vomiting. COMPARISON: 12/04/2018. FINDINGS: Heart is mildly enlarged, increased from prior. There is prominence of the central pulmonary vascularity. There is some thickening of the central airways. There is no cindy alveolar consolidation. No effusion or pneumothorax. IMPRESSION: 1. Thickening of the airways may reflect a viral pattern or reactive airway disease. 2. There is some mild cardiomegaly and vascular congestion but no pleural fluid or cindy edema. Dictated by: Dictated on workstation # [id number]
--- NOTE | 2018-12-09 16:56 | NUR ---
PT REMAINS HERE BY SELF ALERT GCS 15. PT C/O NAUSEA AND NO V/D NOTED IN ER VISIT THUS FAR. PT STILL C/O DYSPNEA. RESP REMAIN SHALLOW NONLABORED TO SLIGHTLY LABORED. PT USING URINAL. BP MACHINE IS 162/64 AUSC HR 80 REG AUSC RESP 20 RECHECK TEMP 102.3 P OX 90 2/N/C TELE SHOWS SR 76. ABD PAIN AND BACK PAIN CONTINUES.
--- NOTE | 2018-12-09 17:02 | NUR ---
P OX KATELYN 88-89 2/N/C GOOD TRACING I INCREASED O2 3/N/C
[2018-12-09] MEDS ORDERED: fentaNYL INJECTION 100 MCG/2 ML AMP IVP STA (17:03)
[2018-12-09] MEDS ORDERED: PROMETHAZINE INJ 25 MG/ML (PHENERGAN) AMP ONE (17:08)
[2018-12-09] MEDS ORDERED: PROMETHAZINE INJ 25 MG/ML (PHENERGAN) AMP IVP STA (17:12)
--- OUTSIDE RECORDS SUMMARY | 2018-12-09 17:41 | XMS REPORT | Continuity of Care Document ---
Author Organization Unknown Address Unknown Allergies Active Description Code Type Severity Reaction Onset Reported/Identified Relationship to Patient Clinical Status Yes MORPHINE SEVERE OTHER Yes MORPHINE SEVERE SEVERE Yes SULFA (SULFONAMIDE ANTIBIOTICS) SEVERE OTHER Yes SULFA (SULFONAMIDE ANTIBIOTICS) SEVERE SEVERE Medications Medication Packaging Start Date Stop Date [...] SITE NOT SPECIFIED 10/14/2018 Raven Da Silva W N39.0 URINARY TRACT INFECTION, SITE NOT SPECIFIED 10/15/2018 Raven Da Silva W 599.0 URINARY TRACT INFECTION, SITE NOT SPECIFIED 10/15/2018 Raven Da Silva W N39.0 URINARY TRACT INFECTION, SITE NOT SPECIFIED 10/15/2018 Raven Da Silva W 599.0 URINARY TRACT INFECTION, SITE NOT SPECIFIED 10/15/2018 Raven Da Silva W N39.0 URINARY TRACT INFECTION, SITE NOT SPECIFIED 10/18/2018 Raven Da Silva W 038.9 UNSPECIFIED SEPTICEMIA 10/18/2018 Raven Da Silva W 041.49 OTHER AND UNSPECIFIED ESCHERICHIA COLI [E. COLI] INFECTION IN CONDITIONS CLASSIFIED ELSEWHERE AND OF UNSPECIFIED SITE 10/18/2018 Raven Da Silva W 250.00 DIABETES MELLITUS WITHOUT MENTION OF COMPLICATION, TYPE II OR UNSPECIFIED TYPE, NOT STATED UNCONTROLLED 10/18/2018 Raven Da Silva W 272.4 OTHER AND UNSPECIFIED HYPERLIPIDEMIA 10/18/2018 Raven Da Silva W 276.51 DEHYDRATION 10/18/2018 Raven Da Silva W 296.20 MAJOR DEPRESSIVE DISORDER, SINGLE EPISODE, UNSPECIFIED DEGREE 10/18/2018 Raven Da Silva W 401.0 MALIGNANT ESSENTIAL HYPERTENSION 10/18/2018 Raven Da Silva W 491.20 OBSTRUCTIVE CHRONIC BRONCHITIS, WITHOUT EXACERBATION 10/18/2018 Raven Da Silva W 530.81 ESOPHAGEAL REFLUX 10/18/2018 Raven Da Silva W 596.9 UNSPECIFIED DISORDER OF BLADDER 10/18/2018 Raven Da Silva W 599.0 URINARY TRACT INFECTION, SITE NOT SPECIFIED 10/18/2018 Raven Da Silva W A41.9 SEPSIS, UNSPECIFIED ORGANISM 10/18/2018 Ravne Da Silva W B96.20 UNSP ESCHERICHIA COLI THE CAUSE OF DISEASES CLASSD ELSWHR 10/18/2018 Raven Da Silva W E11.9 TYPE 2 DIABETES MELLITUS WITHOUT COMPLICATIONS 10/18/2018 Raven Da Silva W E78.5 HYPERLIPIDEMIA, UNSPECIFIED 10/18/2018 Raven Da Silva E86.0 DEHYDRATION 10/18/2018 Raven Da Silva F32.9 MAJOR DEPRESSIVE DISORDER, SINGLE EPISODE, UNSPECIFIED 10/18/2018 Raven Da Silva I10 ESSENTIAL (PRIMARY) HYPERTENSION 10/18/2018 Raven Da Silva J44.9 CHRONIC OBSTRUCTIVE PULMONARY DISEASE, UNSPECIFIED 10/18/2018 Raven Da Silva K21.9 GASTRO- ESOPHAGEAL REFLUX DISEASE WITHOUT ESOPHAGITIS 10/18/2018 Raven Da Silva N32.9 BLADDER DISORDER, UNSPECIFIED 10/18/2018 Raven Da Silva N39.0 URINARY TRACT INFECTION, [...] 5 MEDIA PLATED Setup at 21:56 on 10/14/[id number] [employer] Position C48 CULTURE SOURCE drawn @ Right AC Blood Culture - 10/14/18 21:40 PRELIM CULTURE RESULTS Blood Culture Negative, No Growth Day 1 MEDIA PLATED Setup at 21:56 on 10/14/[id number] [employer] Position C48 CULTURE SOURCE drawn [...] 5-8.5 Urine-Protein Negative Negative Urine-RBC 0-2/HPF Urine-Specific [place] 1.015 1.000-1.030 Urine-WBC TNTC Urobilinogen 2.0 0.2-1.0 [...] 5 MEDIA PLATED Setup at 22:12 on 10/14/[id number] [employer] Position C44 CULTURE SOURCE drawn @ Left AC Blood Culture - 10/14/18 21:45 PRELIM CULTURE RESULTS Blood Culture Negative, No Growth Day 1 MEDIA PLATED Setup at 22:12 on 10/14/[id number] [employer] Position C44 CULTURE SOURCE drawn @ Left AC Urine Culture - 10/14/18 21:45 PRELIM CULTURE [...] Status Pt. Type Provider Facility Loc./Unit Complaint [id number] 10/15/2018 06:42:00 10/18/2018 12:50:00 DIS Inpatient Raven Da Silva [facility] MED-SURG [id number] 09/20/2018 09:41:00 09/20/2018 23:59:00 DIS Outpatient Raven Da Silva [id number] 06/14/2018 09:11:00 06/14/2018 23:59:00 DIS Outpatient Raven Da Silva [id number] 04/06/2018 13:54:00 04/29/2018 07:17:00 DIS Outpatient DANNIELLE ELLIS [id number] 10/14/2018 22:00:01 Document Registration [id number] 05/05/2018 08:42:00 Document Registration [id number] 04/20/2018 16:30:10 04/20/2018 23:59:59 CLS Outpatient Demarco Ford [id number] 04/08/2018 15:12:57 04/08/2018 23:59:59 CLS Outpatient Wan Beyer [id number] 03/02/2018 10:11:23 03/02/2018 23:59:59 CLS Outpatient Nanda Herman Trish [id number] 07/15/2015 12:54:32 07/15/2015 23:59:59 CLS Outpatient Demarco Ford [id number] 06/11/2015 16:45:49 06/11/2015 23:59:59 CLS Outpatient Hedy Sanchez [id number] 02/11/2015 15:59:10 02/11/2015 23:59:59 CLS Outpatient Demarco Ford [id number] 10/14/2018 21:02:00 Document Registration
--- NOTE | 2018-12-09 17:45 | Diagnostic Imaging Report ---
REASON FOR EXAM: Fever, chills, history of cholelithiasis. COMPARISON: 12/06/2018. TECHNIQUE: Grayscale and Doppler ultrasound performed in the right upper quadrant of the abdomen to evaluate the liver and gallbladder. FINDINGS: The liver is large, measuring 24.2 cm in size. The liver echogenicity is within normal limits. There are no focal lesions. No intrahepatic biliary dilatation is present. The common bile duct is not dilated and measures 4 mm. The main portal vein is not well seen. There are multiple small shadowing stones in the gallbladder as well as sludge. No gallbladder wall thickening is seen. Sonographic Ang's sign is negative. The small visualized portion of the head of the pancreas is within normal limits. The body and tail of the pancreas are not well visualized due to overlying bowel gas. The right kidney measures approximately 13.1 cm in length and has a normal appearance, although partially obscured by bowel gas. IMPRESSION: 1. Cholelithiasis and gallbladder sludge with no other sonographic findings of cholecystitis. 2. Hepatomegaly. Dictated by: Dictated on workstation # [id number]
--- OUTSIDE RECORDS SUMMARY | 2018-12-09 17:51 | XMS REPORT | Continuity of Care Document ---
[...] Silva W A41.9 SEPSIS, UNSPECIFIED ORGANISM 10/18/2018 Raven Da Silva W B96.20 UNSP ESCHERICHIA COLI [...] 5 MEDIA PLATED Setup at 21:56 on 10/14/[id number] [employer] Media Position C48 CULTURE SOURCE drawn @ Right AC Blood Culture - 10/14/18 21:40 PRELIM CULTURE RESULTS Blood Culture Negative, No Growth Day 1 MEDIA PLATED Setup at 21:56 on 10/14/[id number] Culture Media Position C48 CULTURE SOURCE drawn [...] 5-8.5 Urine-Protein Negative Negative Urine-RBC 0-2/HPF Urine-Specific Hagerman 1.015 1.000-1.030 Urine-WBC TNTC Urobilinogen 2.0 0.2-1.0 [...] 5 MEDIA PLATED Setup at 22:12 on 10/14/[id number] [employer] Position C44 CULTURE SOURCE drawn @ Left AC Blood Culture - 10/14/18 21:45 PRELIM CULTURE RESULTS Blood Culture Negative, No Growth Day 1 MEDIA PLATED Setup at 22:12 on 10/14/[id number] [employer] Position C44 CULTURE SOURCE drawn [...] Status Pt. Type Provider Facility Loc./Unit Complaint [id number] 10/15/2018 06:42:00 10/18/2018 12:50:00 DIS Inpatient Raven Da Silva [facility] MED-SURG [id number] 09/20/2018 09:41:00 09/20/2018 23:59:00 DIS Outpatient Raven Da Silva [id number] 06/14/2018 09:11:00 06/14/2018 23:59:00 DIS Outpatient Raven Da Silva [id number] 04/06/2018 13:54:00 04/29/2018 07:17:00 DIS Outpatient DANNIELLE ELLIS [id number] 10/14/2018 22:00:01 Document Registration [id number] 05/05/2018 08:42:00 Document Registration [id number] 04/20/2018 16:30:10 04/20/2018 23:59:59 CLS Outpatient Demarco Ford [id number] 04/08/2018 15:12:57 04/08/2018 23:59:59 CLS Outpatient Wan Beyer [id number] 03/02/2018 10:11:23 03/02/2018 23:59:59 CLS Outpatient Nanda Herman Trish [id number] 07/15/2015 12:54:32 07/15/2015 23:59:59 CLS Outpatient Demarco Ford [id number] 06/11/2015 16:45:49 06/11/2015 23:59:59 CLS Outpatient Hedy Sanchez [id number] 02/11/2015 15:59:10 02/11/2015 23:59:59 CLS Outpatient Demarco Ford [id number] 10/14/2018 21:02:00 Document Registration
--- NOTE | 2018-12-09 17:59 | NUR ---
PT REMAINS HERE BY SELF ALERT GCS 15. PT RELATES PAIN BETTER BUT CONTINUES. PT RELATES NAUSEA BETTER BUT CONTINUES AND NO V/D NOTED IN ER VISIT THUS FAR. PT HAS FREQ UA IN URINALS. PT STILL C/O DYSPNEA AND RESP REMAIN SHALLOW NONLABORED TO SLIGHTLY LABORED. PT NOW ON 4/N/C SOMEONE MUST HAVE INC. IT AGAIN. TELE SHOWS SR 85. BP MACHINE IS 147/68 AUSC HR 84 REG WITH MURMER.AUSC RESP 20 RECHECK TEMP 101.6 EAR. P OX 4/N/C IS 93.
--- NOTE | 2018-12-09 18:26 | NUR ---
I JUST SARMAD;LED REPORT TO ADMIT NURSE DUARTE
--- NOTE | 2018-12-09 18:28 | NUR ---
TECH IS TAKING PT TO ADMIT ROOM
--- NOTE | 2018-12-09 18:55 | NUR ---
REC'D PER BED FROM ED. ORIENTED TO ROOM. DRUG AND ALCOHOL TREATMENT SPECIALIST OBTAINING VITALS. WILL REPORT AND GIVE ORDERS TO ONCOMING RN.
[2018-12-09 19:00] VITALS: BP 142/63
--- NOTE | 2018-12-09 19:10 | NUR ---
ORDERS REVIEWED. HIDA SCAN ORDERED. NURSING SUPERVISOR BEAM DEPARTMENT NOTIFIED. NUC MED REPORTS UNABLE TO DO SCAN TOMORROW AM AND THAT PT WOULD BE REQUIRED TO TAKE PO. DR. TOLBERT VINE PRUNER FOR DR. ALVARENGA NOTIFIED AND JOSE REES DC'Basil. NICKO LOPEZ RN NOTIFIED. SUPERVISOR BEAM DEPARTMENT NOTIFIED.
[2018-12-09] MEDS ORDERED: fentaNYL INJECTION 100 MCG/2 ML AMP IV PRN (20:30)
[2018-12-09] MEDS ORDERED: ONDANSETRON 4 MG/2 ML (SDV) Z0FRAN IV PRN (20:30)
[2018-12-09] MEDS ORDERED: CATHETER FLUSH 10 ML SYR IV PRN (20:30)
[2018-12-09] MEDS ORDERED: PROMETHAZINE INJ 25 MG/ML (PHENERGAN) AMP IV PRN (20:30)
[2018-12-09] MEDS: LACTATED RINGERS 1,000 ML IV SCH (21:08)
[2018-12-09] MEDS: inSUlin ASPART (NovoLOG) 1 UNIT/0.01 ML (CHARGE PER UNIT) SC SCH (22:43)
[2018-12-10] VITALS (14 sets, daily range): BP systolic 113–140; BP diastolic 47–71
[2018-12-10] MEDS: CEFEPIME 2,000 MG/SWFI 20 ML IV PUSH IV SCH ×4 (05:43→17:19)
[2018-12-10] MEDS: inSUlin ASPART (NovoLOG) 1 UNIT/0.01 ML (CHARGE PER UNIT) SC SCH ×4 (05:46→21:52)
[2018-12-10 06:32] LABS: BASOPHILS % (AUTO) 0 % (0-10); EOSINOPHILS # (AUTO) 0.1 10^3/uL (0.0-0.3); EOSINOPHILS % (AUTO) 1 % (0-10); HEMATOCRIT 33 % (40-54); HEMOGLOBIN 10.2 G/DL (13.3-17.7); LYMPHOCYTES # (AUTO) 0.9 X 10^3 (1.0-4.0); LYMPHOCYTES % (AUTO) 15 % (12-44); MEAN CORPUSCULAR HEMOGLOBIN 30 PG (25-34); MEAN CORPUSCULAR HGB CONC 31 G/DL (32-36); MEAN CORPUSCULAR VOLUME 96 FL (80-99); MEAN PLATELET VOLUME 10.4 FL (7.4-10.4); MONOCYTES # (AUTO) 0.5 X 10^3 (0.0-1.0); MONOCYTES % (AUTO) 8 % (0-12); NEUTROPHILS # (AUTO) 4.6 X 10^3 (1.8-7.8); NEUTROPHILS % (AUTO) 76 % (42-75); PLATELET COUNT 100 10^3/uL (130-400); RED CELL DISTRIBUTION WIDTH 19.3 % (10.0-14.5)
[2018-12-10] MEDS: LACTATED RINGERS 1,000 ML IV SCH ×3 (06:50→22:56)
[2018-12-10 06:53] LABS: ALANINE AMINOTRANSFERASE 10 U/L (0-55); ALBUMIN 3.3 GM/DL (3.2-4.5); ALKALINE PHOSPHATASE 89 U/L (40-136); BILIRUBIN,TOTAL 1.6 MG/DL (0.1-1.0); BUN/CREATININE RATIO 17; CALCIUM 8.6 MG/DL (8.5-10.1); CARBON DIOXIDE 26 MMOL/L (21-32); CHLORIDE 103 MMOL/L (98-107); CREATININE SERUM 0.77 MG/DL (0.60-1.30); GFR ESTIMATED > 60; GLUCOSE 167 MG/DL (70-105); POTASSIUM 3.8 MMOL/L (3.6-5.0); SODIUM 138 MMOL/L (135-145); TOTAL PROTEIN 5.9 GM/DL (6.4-8.2)
--- NOTE | 2018-12-10 08:15 | NUR ---
MRSA NASAL SWABS DONE, CONSENT FOR OR SIGNED, OR SCHEDULED.
--- NOTE | 2018-12-10 09:20 | NUR ---
MIDLINE PLACED BY RUTHY LOW RT UPPER ARM.
--- NOTE | 2018-12-10 10:18 | History & Physical-Hospitalist ---
History of Present Illness HPI/Chief Complaint Chief complaint: Sepsis with fever consistent with cholecystitis with bacteremia with Escherichia coli failed oral antibiotics History of present illness: This is a 73-year-old white male that I just discharged the day before on Bactrim for treatment of Escherichia coli bacteremia when he was no longer running a fever and after an extensive workup that included consultations from infectious disease Dr. Moreira, Dr. Hernandes for abnormal gallbladder ultrasound, Dr. Larson hematology for leukopenia and thrombocytopenia, Dr. Coleman for lung mass and recurrent fever of unknown origin, and Dr. Curiel status post normal transesophageal echocardiogram ruling out endocarditis last week who presented once again to the ER after he was staying with his in room 222 in inpatient rehabilitation due to her frail status and experienced rigors and chills and fever of 103 so he was sent to the ER Dr. Ortiz complete sepsis workup and conferred with Dr. Hernandes and considering the total bilirubin was elevated and the gallbladder ultrasound showing now gallbladder wall thickening he was assessed to have Escherichia coli bacteremia from gallbladder source so he will be maintained on cefepime 2 g IV every 12 hours and will have a cholecystectomy today by Dr. Hernandes and will go to swing bed at [facility] to treat with IV antibiotics through midline with cefepime to assure complete resolution of the infectious cause of his illness. Source: patient, RN/MD Exam Limitations: no limitations Date Seen 12/10/18 Time Seen by a Provider: 09:45 Attending Physician Raven Ngo DO PCP Raven Ngo DO Referring Physician Date of Admission Dec 09, 2018 at 16:30 Home Medications & Allergies Home Medications Reviewed patient Home Medication Reconciliation performed by pharmacy medication reconciliations wildlife technician and/or nursing. Patients Allergies have been reviewed. 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) Alcohol Use: Denies Use Recreational Drug Use: No Smoking Status: Never a Smoker Former Smoker, Quit: Jun 15, 1999 2nd Hand Smoke Exposure: No Recent Foreign Travel: No Contact w/other who traveled: No Recent Hopitalizations: Yes Recent Infectious Disease Expo: No Immunizations Up To Date Pediatric: Yes Date of Pneumonia Vaccine: Mar 28, 2017 Seasonal Allergies Seasonal Allergies: No Past Medical History Surgeries: Abdominal, Orthopedic Respiratory: COPD, Sleep Apnea Cardiac: High Cholesterol, Hypertension Sexually Transmitted Disease: No HIV/AIDS: No Genitourinary: Benign Prostatic Hyperpl, Bladder Infection, Kidney Stones Gastrointestinal: Abdominal Hernia, Diverticulosis, Gall Bladder Disease (gallstones) Musculoskeletal: Arthritis, Fractures Endocrine: Diabetes, Insulin dep HEENT: Cataract, Tinnitis Loss of Vision: Bilateral Hearing Impairment: Hard of Hearing Psychosocial: Sleep Difficulties History of Blood Disorders: No Adverse Reaction to Blood Archer: No Family History Reviewed Nursing Family Hx Patient reports no known family medical history. No Pertinent Family Hx Review of Systems Constitutional: see HPI, chills, diaphoresis, dizziness, fever, malaise, weakness EENTM: no symptoms reported Respiratory: no symptoms reported Cardiovascular: no symptoms reported Gastrointestinal: abdominal pain (RUQ), loss of appetite, nausea, vomiting Genitourinary: no symptoms reported Musculoskeletal: no symptoms reported Skin: no symptoms reported Psychiatric/Neurological: No Symptoms Reported All Other Systems Reviewed Negative Unless Noted: Yes Physical Exam Physical Exam Vital Signs Vital Signs - First Documented 12/09/18 12/09/18 15:42 18:02 Temp 101.8 Pulse 87 Resp 22 B/P (MAP) 180/90 (120) Pulse Ox 96 O2 Delivery Nasal Cannula O2 Flow Rate 4.00 Capillary Refill : Less Than 3 SecondsLess Than 3 Seconds Height, Weight, BMI Height: 6'7.00" Weight: 351lbs. 6.4oz. 159.654552gv; 39.6 BMI Method:Stated General Appearance: No Apparent Distress, WD/WN, Chronically ill, Obese Eyes: Right Eye Normal Inspection, Right Eye PERRL HEENT: PERRL/EOMI, Normal ENT Inspection, Pharynx Normal, Moist Mucous Membranes Neck: Full Range of Motion, Normal Inspection, Non Tender Respiratory: Chest Non Tender, Lungs Clear, Normal Breath Sounds, No Accessory Muscle Use, No Respiratory Distress Cardiovascular: Regular Rate, Rhythm, No Edema, No Gallop, No JVD, No Murmur, Normal Peripheral Pulses Gastrointestinal: Normal Bowel Sounds, No Organomegaly, No Pulsatile Mass, Soft, Tenderness Back: Normal Inspection, No CVA Tenderness, No Vertebral Tenderness Extremity: Normal Capillary Refill, Normal Inspection, Normal Range of Motion, Non Tender, No Calf Tenderness, No Pedal Edema Neurologic/Psychiatric: Alert, Oriented x3, No Motor/Sensory Deficits, Normal Mood/Affect Skin: Normal Color, Warm/Dry Lymphatic: No Adenopathy Results Results/Procedures Labs Laboratory Tests 12/09/18 15:52 12/10/18 06:06 Patient resulted labs reviewed. Assessment/Plan Admission Diagnosis Assessment: 1A. Acute cholecystitis in need of choly today per Dr Hernandes (1) FUO (fever of unknown origin) Status: Acute (2) Gram-negative bacteremia due to E coli will need Cefepime IV 2 grams Q12 hours thru midline in swing bed at [facility] since failed PO abx Status: Acute (3) Prostatitis, acute Status: Acute (4) UTI (urinary tract infection) Status: Acute (5) Sepsis Status: Acute (6) Diabetes mellitus, insulin dependent (IDDM), controlled Status: Chronic (7) JULIAN on CPAP Status: Chronic (8) COPD with exacerbation Status: Chronic (9) Hypertension Status: Chronic (10) GERD (gastroesophageal reflux disease) Status: Chronic (11) Vitamin B 12 deficiency Status: Chronic (12) Osteoarthritis Status: Chronic (13) Hyperlipidemia Status: Chronic (14) Fever (15) Mass of upper lobe of right lung needs PET scan and suspicious for neoplasm but had previous lung resection in RUL Status: Acute Plan: Choly today PET scan Thursday [facility] SB until Thursday then will complete IV abx outpatient if able Admission Status: Inpatient Order (span 2 midnights) Reason for Inpatient Admission: Sepsis in FUO but E coli in blood and acute cholecystitis in need of choly and IV abx since failed PO abx Diagnosis/Problems Diagnosis/Problems (1) Cholecystitis, acute with cholelithiasis Status: Acute Qualifiers: Biliary obstruction: without biliary obstruction Qualified Codes: K80.00 - Calculus of gallbladder with acute cholecystitis without obstruction (2) Nausea and vomiting Status: Acute Qualifiers: Vomiting type: unspecified Vomiting Intractability: intractable Qualified Codes: R11.2 - Nausea with vomiting, unspecified (3) Fever and chills Status: Acute (4) Renal insufficiency Status: Chronic (5) Gram-negative bacteremia Status: Acute (6) FUO (fever of unknown origin) Status: Acute (7) Mass of upper lobe of right lung Status: Acute (8) Diabetes mellitus, insulin dependent (IDDM), controlled Status: Chronic (9) JULIAN on CPAP Status: Chronic (10) COPD with exacerbation Status: Chronic (11) Hypertension Status: Chronic (12) GERD (gastroesophageal reflux disease) Status: Chronic (13) Prostatitis, acute Status: Acute (14) Vitamin B 12 deficiency Status: Chronic (15) Osteoarthritis Status: Chronic (16) Hyperlipidemia Status: Chronic (17) Sepsis Status: Acute Clinical Quality Measures DVT/VTE Risk/Contraindication: Risk Factor Score Per Nursin RFS Level Per Nursing on Admit: 4+=Very High RAVEN NGO DO Dec 10, 2018 10:18
[2018-12-10] MEDS ORDERED: DEXAMETHASONE 10 MG/ML (DECADRON) 1 ML VIAL ONE (10:29)
[2018-12-10] MEDS ORDERED: ROCURONIUM 10 MG/ML 5 ML SYRINGE IV ONE ×3 (10:29→14:08)
[2018-12-10] MEDS ORDERED: proPOfol 200 MG/20 ML (DIPRIVAN) VIAL IV ONE ×2 (10:29→14:28)
[2018-12-10] MEDS ORDERED: SEVOFLURANE (ULTANE) 15 ML INHAL SOLN ONE ×2 (10:29→14:10)
[2018-12-10] MEDS ORDERED: ONDANSETRON 4 MG/2 ML (SDV) Z0FRAN ONE (10:29)
[2018-12-10] MEDS ORDERED: LIDOCAINE PF 2% 5 ML (XYLOCAINE) VIAL ONE (10:29)
[2018-12-10] MEDS ORDERED: fentaNYL INJECTION 100 MCG/2 ML AMP ONE (10:30)
[2018-12-10] MEDS ORDERED: BUP/EPI 0.5% 1:200,000 (SENSORCAINE) 30 ML VIAL ONE ×2 (10:31→12:15)
--- NOTE | 2018-12-10 10:46 | Consultation (Surgery) ---
History of Present Illness History of Present Illness Patient Consulted On(pradeep/time) 12/10/18 10:36 Date Seen by Provider: Dec 10, 2018 Time Seen by Provider: 10:36 History of Present Illness Consult requested by Dr. Da Silva for cholecystitis Patient is a 73-year-old male who recently was discharged was having fever of unknown origin. Patient had Escherichia coli per blood culture and had recently been treated for UTI and prostatitis. Patient to having more right upper quadrant abdominal pain. He is having nausea. He started having fever above 101 again. He was on oral bionics. Patient went to the emergency department for reevaluation. He had a gallbladder ultrasound demonstrating at gallbladder wall thickening to 4 mm with cholelithiasis and sludge. Patient also with elevated bilirubin. Having nausea but no emesis but patient was really fighting the keep it down he states. He has no other complaints at this time. His nausea has improved. His pain was moderate to severe. precipitation equipment tender in the right upper quadrant below bit better with pain medication. He has been continued on antibiotics. Allergies and Home Medications Allergies Coded Allergies: No Known Drug Allergies (Unverified , 11/26/18) Home Medications Albuterol Sulfate 1 Puff Puff, 2 PUFF INH Q4H PRN for SHORTNESS OF BREATH, (Reported) Aspirin 81 Mg Tablet.dr, 81 MG PO DAILY, (Reported) C,E,Zinc,Copper 11/Elfhe7d/Lut 1 Each Capsule, 1 CAP PO DAILY, (Reported) Cetirizine HCl 10 Mg Tablet, 10 MG PO DAILY, (Reported) Clotrimazole/Betamethasone Dip 15 Gm Cream..g., 0 GM TP BID Prescribed by: RAMEZ DA SILVA on 12/03/18 1137 Cyanocobalamin (Vitamin B-12) 2,000 Mcg Tablet, 2,000 MCG PO DAILY, (Reported) Finasteride 5 Mg Tablet, 5 MG PO DAILY, (Reported) Furosemide 40 Mg Tablet, 40 MG PO DAILY Prescribed by: RAMEZ DA SILVA on 12/08/18 1051 Glycopyrrolate/Formoterol Fum 10.7 Gm Hfa.aer.ad, 2 PUFF INH BID, (Reported) Guaifenesin/Codeine Phosphate 118 Ml Liquid, 5 ML PO Q4H PRN for COUGH, (Reported) Insulin Glargine,Hum.rec.anlog 100 Unit/1 Ml Vial, 80 UNITS SC HS, (Reported) Insulin Glargine,Hum.rec.anlog 100 Unit/1 Ml Vial, 40 UNIT SQ DAILY, (Reported) Insulin Lispro 100 Unit/1 Ml Vial, 30 UNITS SC TIDAC, (Reported) Meloxicam 7.5 Mg Tablet, 7.5 MG PO DAILY, (Reported) Metoprolol Succinate 50 Mg Tab.er.24h, 50 MG PO DAILY Prescribed by: RAMEZ DA SILVA on 12/08/18 1051 Toston 3 Polyunsat Fatty Acids 1,000 Mg Cap, 1,000 MG PO DAILY, (Reported) Omeprazole 20 Mg Capsule.dr, 20 MG PO DAILY, (Reported) Pioglitazone HCl 15 Mg Tablet, 15 MG PO DAILY, (Reported) Potassium Chloride 10 Meq Tab.er.prt, 10 MEQ PO DAILY Prescribed by: RAMEZ DA SILVA on 12/08/18 1051 Sertraline HCl 100 Mg Tablet, 100 MG PO DAILY, (Reported) Silver Sulfadiazine 20 Gm Cream..g., 0 GM TOP DAILY Prescribed by: RAMEZ DA SILVA on 12/03/18 1137 Sulfamethoxazole/Trimethoprim 1 Each Tablet, 1 EACH PO BID Prescribed by: RAMEZ DA SILVA on 12/08/18 1051 Tamsulosin HCl 0.4 Mg Cap, 0.4 MG PO DAILY, (Reported) Patient Home Medication List Home Medication List Reviewed: Yes Past Hbcnweb-Fuifsg-Uhlpxl Hx Patient Social History Alcohol Use: Denies Use Recreational Drug Use: No Smoking Status: Never a Smoker Former Smoker, Quit: Jun 15, 1999 2nd Hand Smoke Exposure: No Recent Foreign Travel: No Contact w/Someone Who Travel: No Recent Infectious Disease Expo: No Recent Hopitalizations: Yes Immunizations Up To Date PED Vaccines UTD: Yes Date of Pneumonia Vaccine: Mar 28, 2017 Seasonal Allergies Seasonal Allergies: No Surgeries History of Surgeries: Yes Surgeries: Abdominal, Orthopedic Respiratory History of Respiratory Disorde: Yes Respiratory Disorders: Pneumonia, Pulmonary Embolism, COPD Cardiovascular History of Cardiac Disorders: Yes Cardiac Disorders: High Cholesterol, Hypertension Neurological History of Neurological Disord: No Reproductive System Sexually Transmitted Disease: No HIV/AIDS: No Genitourinary History of Genitourinary Disor: Yes Genitourinary Disorders: Benign Prostatic Hyperpl, Bladder Infection, Kidney Stones Gastrointestinal Gastrointestinal Disorders: Abdominal Hernia, Diverticulosis, Gall Bladder Disease (gallstones) Musculoskeletal History of Musculoskeletal Dis: Yes Musculoskeletal Disorders: Arthritis, Fractures Endocrine History of Endocrine Disorders: Yes Endocrine Disorders: Diabetes, Insulin dep HEENT History of HEENT Disorders: Yes HEENT Disorders: Cataract, Tinnitis Loss of Vision: Bilateral Hearing Impairment: Hard of Hearing Cancer History of Cancer: No Psychosocial History of Psychiatric Problem: Yes Behavioral Health Disorders: Sleep Difficulties Integumentary History of Skin or Integumenta: No Blood Transfusions History of Blood Disorders: No Adverse Reaction to a Blood Tr: No Family Medical History Significant Family History: No Pertinent Family Hx Family Medial History: Patient reports no known family medical history. Review of Systems-General Constitutional: see HPI, fever EENTM: no symptoms reported Respiratory: no symptoms reported Cardiovascular: no symptoms reported Gastrointestinal: see HPI Genitourinary: no symptoms reported Musculoskeletal: no symptoms reported Skin: no symptoms reported Psychiatric/Neurological: No Symptoms Reported Physical Exam-General Problems Physical Exam Vital Signs Vital Signs - First Documented 12/09/18 12/09/18 15:42 18:02 Temp 101.8 Pulse 87 Resp 22 B/P (MAP) 180/90 (120) Pulse Ox 96 O2 Delivery Nasal Cannula O2 Flow Rate 4.00 Capillary Refill : Less Than 3 SecondsLess Than 3 Seconds General Appearance: WD/WN, no apparent distress HEENT: PERRL/EOMI, normal ENT inspection Neck: non-tender, supple Respiratory: chest non-tender, no respiratory distress, no accessory muscle use Cardiovascular: regular rate, rhythm Gastrointestinal: tenderness (right upper quadrant), other (multiple abdominal scars from previous surgeries) Rectal: deferred Back: no CVA tenderness Extremities: non-tender, normal inspection Neurologic/Psychiatric: spanish translator II-XII nml as tested, alert, normal mood/affect, oriented x 3 Skin: normal color, warm/dry Lymphatic: no adenopathy Data Review Labs Laboratory Tests 12/09/18 15:35: Urine Color YELLOW, Urine Clarity CLEAR, Urine pH 8, Urine Specific Lincoln 1.010L, Urine Protein NEGATIVE, Urine Glucose (UA) NEGATIVE, Urine Ketones NEGATIVE, Urine Nitrite NEGATIVE, Urine Bilirubin NEGATIVE, Urine Urobilinogen 4H, Urine Leukocyte Esterase NEGATIVE, Urine RBC (Auto) NEGATIVE, Urine RBC 2-5H , Urine WBC NONE, Urine Squamous Epithelial Cells 2-5, Urine Crystals NONE, Urin e Bacteria NEGATIVE, Urine Casts NONE, Urine Mucus NEGATIVE, Urine Culture Indicated CULTURE PENDING 12/09/18 15:52: White Blood Count 6.5, Red Blood Count 4.13L, Hemoglobin 11.9#L, Hematocrit 39L, Mean Corpuscular Volume 95, Mean Corpuscular Hemoglobin 29, Mean Corpuscular Hemoglobin Concent 30L, Red Cell Distribution Width 19.2H, Platelet Count 141, Mean Platelet Volume 10.7H, Neutrophils (%) (Auto) 89H, Lymphocytes (%) (Auto) 7L, Monocytes (%) (Auto) 3, Eosinophils (%) (Auto) 1, Basophils (%) (Auto) 0, Neutrophils # (Auto) 5.8, Lymphocytes # (Auto) 0.4L, Monocytes # (Auto) 0.2, Eosinophils # (Auto) 0.1, Basophils # (Auto) 0.0, Neutrophils % (Manual) 82, Lymphocytes % (Manual) 11, Monocytes % (Manual) 4, Eosinophils % (Manual) 1, Band Neutrophils 2, Polychromasia MODERATE, Anisocytosis SLIGHT, Prothrombin Time 14.1, INR Comment 1.1, Activated Partial Thromboplast Time 33, Sodium Level 138, Potassium Level 4.1, Chloride Level 99, Carbon Dioxide Level 29, Anion Gap 10, Blood Urea Nitrogen 12, Creatinine 1.01, Estimat Glomerular Filtration Rate > 60, BUN/Creatinine Ratio 12, Glucose Level 174H, Lactic Acid Level 1.86, Calcium Level 9.6, Corrected Calcium 9.5, Total Bilirubin 2.2H, Aspartate Amino Transf (AST/SGOT) 18, Alanine Aminotransferase (ALT/SGPT) 10, Alkaline Phosphatase 115, Total Protein 7.4, Albumin 4.1 12/09/18 22:07: Glucometer 209H 12/10/18 05:34: Glucometer 169H 12/10/18 06:06: White Blood Count 6.0, Red Blood Count 3.45L, Hemoglobin 10.2L, Hematocrit 33L, Mean Corpuscular Volume 96, Mean Corpuscular Hemoglobin 30, Mean Corpuscular Hemoglobin Concent 31L, Red Cell Distribution Width 19.3H, Platelet Count 100L, Mean Platelet Volume 10.4, Neutrophils (%) (Auto) 76H, Lymphocytes (%) (Auto) 15, Monocytes (%) (Auto) 8, Eosinophils (%) (Auto) 1, Basophils (%) (Auto) 0, Neutrophils # (Auto) 4.6, Lymphocytes # (Auto) 0.9L, Monocytes # (Auto) 0.5, Eosinophils # (Auto) 0.1, Basophils # (Auto) 0.0, Sodium Level 138, Potassium Level 3.8, Chloride Level 103, Carbon Dioxide Level 26, Anion Gap 9, Blood Urea Nitrogen 13, Creatinine 0.77, Estimat Glomerular Filtration Rate > 60, BUN/Crea tinine Ratio 17, Glucose Level 167H, Calcium Level 8.6, Corrected Calcium 9.2, Total Bilirubin 1.6H, Aspartate Amino Transf (AST/SGOT) 14, Alanine Aminotransferase (ALT/SGPT) 10, Alkaline Phosphatase 89, Total Protein 5.9L, Albumin 3.3 Assessment/Plan Assessment/Plan Assessment/Plan Cholelithiasis and sludge Borderline gallbladder wall thickening suspect cholecystitis Fever suspect likely from gallbladder. UTI/prostatitis Patient was discussed risk and benefits of having A cholecystectomy possible open all other indicated procedures. Patient understands risk and benefits and wishes to proceed. Patient to continue with current antibiotics. NPO IV hydration To or today. Clinical Quality Measures DVT/VTE Risk/Contraindication: Risk Factor Score Per Nursin RFS Level Per Nursing on Admit: 4+=Very High JABIER ALVARENGA DO Dec 10, 2018 10:46
[2018-12-10] MEDS ORDERED: LOSA100T57 PO (10:58)
[2018-12-10] MEDS ORDERED: METF-397 PO (10:58)
--- NOTE | 2018-12-10 11:00 | NUR ---
PATIENT WAS RECENTLY DISCHARGED. HE STATES HE DID HAVE HIS DAUGHTER CARD STRIPPER HIS NEW PRESCRIPTIONS THAT WERE ORDERED AT THAT DISCHARGE BUT HE NEVER ACTUALLY MADE IT HOME. AFTER DISCHARGE HE WENT DOWNSTAIRS TO VISIT HIS AND WAS SENT TO ER FROM THERE. I ADDED THE LOSARTAN 100MG DAILY AND METFORMIN 500MG DAILY THAT WERE DISCONTINUED AT THAT DISCHARGE BACK TO THE MED REC AT THIS TIME SINCE THE PATIENT HAS NOT REALLY BEEN HOME TO STOP THOSE MEDICATIONS. I LEFT THE NEW ONES THAT WERE ORDERED SINCE HE DID PICK THEM UP. HE IS AWARE OF THE SEVERAL CHANGES OVER THE MULTIPLE ADMISSION AND WILL BE DILIGENT ABOUT GETTING HIS MED LIST RECONCILED WHEN HE DOES GET TO RETURN HOME.
--- NOTE | 2018-12-10 11:06 | NUR ---
TO OR PER BED.
[2018-12-10] MEDS: LACTATED RINGERS 1,000 ML IV PRN ×2 (11:10→13:20)
[2018-12-10] MEDS ORDERED: fentaNYL INJECTION 100 MCG/2 ML AMP IVP ONE (11:45)
[2018-12-10] MEDS ORDERED: ONDANSETRON 4 MG/2 ML (SDV) Z0FRAN IVP PRN (11:45)
[2018-12-10] MEDS ORDERED: HYDROmorphone 2 MG/ML VIAL (DILAUDID) IV ONE (11:45)
[2018-12-10] MEDS ORDERED: NEOSTIGMINE 1 MG/ML 5 ML SYRINGE ONE (13:26)
[2018-12-10] MEDS ORDERED: GLYCOPYRROLATE 0.2 MG/ML (ROBINUL) 2 ML VIAL ONE (13:26)
--- NOTE | 2018-12-10 14:26 | Progress Note-Post Operative ---
Post-Operative Progess Note Surgeon (s)/Mlt (s) Surgeon JABIER ALVARENGA DO Mlt: Dr. Biggs Pre-Operative Diagnosis cholelithiasis sludge ruq abd pain Post-Operative Diagnosis cholelithiasis, significant intrabdominal adhesions, choledocholithiasis, Procedure & Operative Findings Date of Procedure 12/10/18 Procedure Performed/Findings lap lysis of adhesions 1 hr, cholecystectomy, IOC Anesthesia Type gen Estimated Blood Loss Estimated blood loss (mL): min Specimens/Packing Specimens Removed gallbladder JABIER ALVARENGA DO Dec 10, 2018 14:26
--- NOTE | 2018-12-10 14:55 | Diagnostic Imaging Report ---
Indication: Cholecystectomy. Fluoroscopy was utilized by Dr. Hernandes during intraoperative cholangiography and cholecystectomy, 30 seconds of fluoroscopy time were utilized. Some lucency within the distal common bile duct without associated ductal caliber transition is probably injected air bubbles but correlate with the endoscopist formal report. No focal stricture. Contrast media spills into the duodenum. Impression: No obstructing lesion or stricture, lucent filling defect or defects in the common bile duct probably injected air bubbles although correlate clinically. Dictated by: Dictated on workstation # [id number]
[2018-12-10] MEDS ORDERED: HYDROmorphone 2 MG/ML VIAL (DILAUDID) ONE (15:29)
--- NOTE | 2018-12-10 16:00 | NUR ---
REC'D PER BED FROM PAR. ALERT AND ORIENTED. O2 ON @ 4L N/C. STAB SITES X 5 ON ABD D/I WITH ICE PACK. IV INFUSING @ 100 CC/HR. DENIES PAIN AT THIS TIME.
--- NOTE | 2018-12-10 17:11 | NUR ---
BLOOD SUGAR 227. PT REFUSED INSULIN.
--- NOTE | 2018-12-10 17:28 | NUR ---
VOIDED DARK DARIAN URINE @ 250 CC. TAKING SIPS CL LIQ PO WITHOUT N/V. IV INFUSING. DENIES PAIN. RT NOTIFIED FOR IS EDUCATION.
--- NOTE | 2018-12-10 20:58 | OPERATIVE REPORT ---
DATE OF SERVICE: 12/10/2018 PREOPERATIVE DIAGNOSES: Cholelithiasis, probable cholecystitis. POSTOPERATIVE DIAGNOSES: Cholelithiasis, probable cholecystitis. Significant intra-abdominal adhesions and a filling defect of the common bile duct. PROCEDURE: Laparoscopic lysis of adhesions 1 hour and cholecystectomy with intraoperative cholangiogram. SURGEON: Silvio Hernandes DO CHILD SUPPORT INVESTIGATOR: Dr. Biggs, assisted in retraction, dissection and closure. ANESTHESIA: General. ESTIMATED BLOOD LOSS: Minimal. COMPLICATIONS: None. INDICATIONS: The patient is a 73-year-old male who has been having fever of unknown origin. He has been on antibiotics and treated for UTI and prostatitis. The patient was discharged. He had previous gallbladder ultrasound that demonstrated cholelithiasis and sludge, but no gallbladder wall thickening. The patient returned to the Emergency Department yesterday evening and was having fever greater than 101. His gallbladder had gallstones and sludge. His total bilirubin was slightly elevated and the gallbladder wall was 4 mm in thickness. He was also having more right upper quadrant abdominal pain and nausea. With all these findings, the patient was discussed risks and benefits of having laparoscopic cholecystectomy, possible open, and understood risks and benefits and wishes to proceed with procedure. Consent was signed and on the chart. DESCRIPTION OF PROCEDURE: The patient was taken to the operating suite, was prepped and draped in sterile fashion. Surgical pause was performed. Lizzy technique was used to enter the left upper quadrant and a balloon trocar was inserted. Pneumoperitoneum was achieved. The scope was inserted noting significant intra-abdominal adhesions present. There was a small opening in the left lower quadrant where a 5 mm trocar was then placed. A scissor cautery was then used to start taking down all the adhesions present, trying to create a window towards the upper abdomen. The adhesions were continued to be taken down, which a window created in the upper portion of the abdomen to where a port could be placed in the right upper quadrant, one in the subxiphoid region, which 5 mm trocars placed in these two areas. The omentum was adhered to the liver and covering the gallbladder. Gallbladder was unable to be visualized. A LigaSure was then used to continue to take down the intra-abdominal adhesions and the LigaSure was also then begun to use to dissect adhesions off of the liver. The falciform ligament had to be taken down as well. The gallbladder was fully visualized, which another 5 mm trocar was placed in the right upper quadrant. Gallbladder was grasped and then there were significant adhesions to the gallbladder. These were again to be bluntly taken down until the entire gallbladder was able to be visualized. The cystic duct was then able to be dissected around. A clip was placed on the distal portion of the cystic duct. The duct was then partially transected. The Arrow catheter was inserted into the duct and cholangiogram was performed. There was some filling defect in the common bile duct, which question this is stone or if this is an area that was injected through the catheter. The catheter was then removed. Clips were placed on the proximal portion of the cystic duct. This was transected. Clips were placed on the proximal and distal portion of the cystic artery and then this was then transected. Hook cautery used to dissect the gallbladder from the gallbladder fossa achieving hemostasis. This was then placed in an Endobag and removed through the 12 mm trocar site. The liver had a cirrhotic appearance. The abdomen was then irrigated with copious amounts of irrigation and suction. Hemostasis was achieved. The abdomen was then desufflated and the trocars were removed. The posterior fascia and peritoneum with a 12 mm trocar site were then closed with 3-0 Vicryl. Anterior fascia was closed with 0 Vicryl. The incisions were then closed using 4-0 Monocryl in subcuticular fashion. The abdomen was then washed and dried and the skin Affix was placed over the incisions. The patient tolerated procedure well without any complications. He was sent to recovery room in stable condition. RECOMMENDATIONS: We will continue to monitor for any symptoms of a common bile duct obstruction. If this is present, would send for ERCP. Job ID: [id number] DocumentID: [id number] Dictated Date: 12/10/2018 19:31:14 Television Cameraman Date: 12/10/2018 20:57:02 Dictated By: DO CUATE SHOOK
[2018-12-10] MEDS ORDERED: guaiFENesin/CODEINE (ROBITUSSIN AC) 10ML UDC PO PRN (23:00)
[2018-12-11] VITALS: BP 139/57
[2018-12-11 04:42] VITALS: BP 142/61
[2018-12-11] MEDS: CEFEPIME 2,000 MG/SWFI 20 ML IV PUSH IV SCH ×2 (05:11)
[2018-12-11] MEDS: inSUlin ASPART (NovoLOG) 1 UNIT/0.01 ML (CHARGE PER UNIT) SC SCH ×2 (05:59→12:22)
[2018-12-11] MEDS ORDERED: RT-ALBUTEROL SULF 2.5 MG/3 ML PRE-MIX VIAL INH PRN (06:45)
[2018-12-11 08:00] VITALS: BP 153/62
[2018-12-11 08:29] LABS: BASOPHILS % (AUTO) 0 % (0-10); EOSINOPHILS # (AUTO) 0.1 10^3/uL (0.0-0.3); EOSINOPHILS % (AUTO) 1 % (0-10); HEMATOCRIT 32 % (40-54); HEMOGLOBIN 9.9 G/DL (13.3-17.7); LYMPHOCYTES # (AUTO) 0.6 X 10^3 (1.0-4.0); LYMPHOCYTES % (AUTO) 8 % (12-44); MEAN CORPUSCULAR HEMOGLOBIN 30 PG (25-34); MEAN CORPUSCULAR HGB CONC 31 G/DL (32-36); MEAN CORPUSCULAR VOLUME 96 FL (80-99); MEAN PLATELET VOLUME 10.5 FL (7.4-10.4); MONOCYTES # (AUTO) 0.5 X 10^3 (0.0-1.0); MONOCYTES % (AUTO) 7 % (0-12); NEUTROPHILS # (AUTO) 6.5 X 10^3 (1.8-7.8); NEUTROPHILS % (AUTO) 85 % (42-75); PLATELET COUNT 94 10^3/uL (130-400); RED CELL DISTRIBUTION WIDTH 19.2 % (10.0-14.5); WHITE BLOOD COUNT 7.7 10^3/uL (4.3-11.0)
--- NOTE | 2018-12-11 08:30 | NUR ---
Pt c/o not being able to void and burning. Dr. Alan notified and orders received. #16Fr catheter placed with clear dark yellow return. Tolerated well. UA sent to lab. Addendum: 12/11/18 at 0833 by DEVAN LERMA RN Amended: Links added.
[2018-12-11] MEDS: LACTATED RINGERS 1,000 ML IV SCH (08:37)
[2018-12-11 08:44] LABS: ALANINE AMINOTRANSFERASE 136 U/L (0-55); ALBUMIN 3.1 GM/DL (3.2-4.5); ALKALINE PHOSPHATASE 80 U/L (40-136); BILIRUBIN,TOTAL 2.1 MG/DL (0.1-1.0); BUN/CREATININE RATIO 18; CALCIUM 8.2 MG/DL (8.5-10.1); CARBON DIOXIDE 27 MMOL/L (21-32); CHLORIDE 102 MMOL/L (98-107); GFR ESTIMATED > 60; GLUCOSE 184 MG/DL (70-105); POTASSIUM 3.9 MMOL/L (3.6-5.0); SODIUM 137 MMOL/L (135-145); TOTAL PROTEIN 5.6 GM/DL (6.4-8.2)
[2018-12-11 08:46] LABS: BILIRUBIN,URINE NEGATIVE (NEGATIVE); CLARITY,URINE CLEAR; COLOR,URINE YELLOW; GLUCOSE, URINE (UA) NEGATIVE (NEGATIVE); KETONES,URINE NEGATIVE (NEGATIVE); LEUKOCYTE ESTERASE ,URINE NEGATIVE (NEGATIVE); NITRITE,URINE NEGATIVE (NEGATIVE); PH,URINE 6 (5-9); PROTEIN,URINE NEGATIVE (NEGATIVE); UROBILINOGEN,URINE NORMAL (NORMAL)
[2018-12-11 08:53] LABS: BACTERIA,URINE NEGATIVE /HPF; WBC,URINE 0-2 /HPF
[2018-12-11] MEDS ORDERED: meTOproloL SUCCINATE 50 MG (TOPROL XL) TAB PO SCH (09:00)
[2018-12-11] MEDS ORDERED: FINASTERIDE (PROSCAR) 5 MG TAB PO SCH (09:00)
[2018-12-11] MEDS ORDERED: SILVER SULFADIAZINE 50 GM CREAM TOP SCH (09:00)
[2018-12-11] MEDS ORDERED: CYANOCOBALAMIN 1,000 MCG (VITAMIN B-12) TABLET PO SCH (09:00)
[2018-12-11] MEDS ORDERED: NON-FORMULARY MEDICATION 1 EA EA (Glycopyrrolate/Formoterol Fum (Bevespi Aerosphere Inhale INH SCH (09:00)
[2018-12-11] MEDS ORDERED: LORATADINE (CLARITIN) 10 MG TAB PO SCH (09:00)
[2018-12-11] MEDS ORDERED: SERTRALINE 100 MG (ZOLOFT) TAB PO SCH (09:00)
[2018-12-11] MEDS ORDERED: PANTOPRAZOLE 20 MG TABLET (PROTONIX) PO SCH (09:00)
[2018-12-11] MEDS ORDERED: BETAMETHASONE/CLOTRIM CREAM (LOTRISONE) 45 GM TP SCH (09:00)
[2018-12-11] MEDS ORDERED: TAMSULOSIN 0.4 MG (FLOMAX) CAP PO SCH (09:00)
[2018-12-11] MEDS ORDERED: MELOXICAM 7.5 MG (MOBIC) TABLET PO SCH (09:00)
[2018-12-11] MEDS ORDERED: ASPIRIN E.C. 81 MG (ECOTRIN) TAB PO SCH (09:00)
[2018-12-11 09:40] LABS: ANISOCYTOSIS MODERATE; BAND NEUTROPHILS 0 %; BASOPHILS % (MANUAL) 0 %; EOSINOPHILS % (MANUAL) 2 %; LYMPHOCYTES % (MANUAL) 8 %; MONOCYTES % (MANUAL) 4 %; NEUTROPHILS % (MANUAL) 86 %
[2018-12-11] MEDS ORDERED: inSUlin ASPART (NovoLOG) 1 UNIT/0.01 ML (CHARGE PER UNIT) SC SCH (11:00)
--- NOTE | 2018-12-11 11:57 | Anesthesia-General Post-Op ---
General Patient Condition Mental Status/LOC: Same as Preop Cardiovascular: Satisfactory Nausea/Vomiting: Absent Respiratory: Satisfactory Pain: Controlled Complications: Absent Post Op Complications Complications None Follow Up Care/Instructions Patient Instructions None needed. Anesthesia/Patient Condition Patient Condition Patient is doing well, no complaints, stable vital signs, no apparent adverse anesthesia problems. No complications reported per nursing. RADHA MCMAHON CRNA Dec 11, 2018 11:57
[2018-12-11] MEDS ORDERED: BETH10TA PO (12:24)
[2018-12-11] MEDS ORDERED: CEFE2FRO IV (12:24)
[2018-12-11] MEDS ORDERED: ENOX40DI13 SQ (12:24)
--- NOTE | 2018-12-11 12:30 | Discharge Summary-Hospitalist ---
Diagnosis/Chief Complaint Date of Admission Dec 09, 2018 at 16:30 Date of Discharge Discharge Date: Dec 11, 2018 Admission Diagnosis Assessment: 1A. Acute cholecystitis in need of choly today per Dr Hernandes (1) FUO (fever of unknown origin) Status: Acute (2) Gram-negative bacteremia due to E coli will need Cefepime IV 2 grams Q12 hours thru midline [place] [facility] abx Status: Acute (3) Prostatitis, acute Status: Acute (4) UTI (urinary tract infection) Status: Acute (5) Sepsis Status: Acute (6) Diabetes mellitus, insulin dependent (IDDM), controlled Status: Chronic (7) JULIAN on CPAP Status: Chronic (8) COPD with exacerbation Status: Chronic (9) Hypertension Status: Chronic (10) GERD (gastroesophageal reflux disease) Status: Chronic (11) Vitamin B 12 deficiency Status: Chronic (12) Osteoarthritis Status: Chronic (13) Hyperlipidemia Status: Chronic (14) Fever (15) Mass of upper lobe of right lung needs PET scan and suspicious for neoplasm but had previous lung resection in [facility] Status: Acute Plan: Choly today PET scan Thursday [facility] [place] Thursday then will complete IV abx outpatient if able Discharge Diagnosis (1) Cholecystitis, acute with cholelithiasis Status: Acute (2) Nausea and vomiting Status: Acute (3) Fever and chills Status: Acute (4) Renal insufficiency Status: Chronic (5) Gram-negative bacteremia Status: Acute (6) FUO (fever of unknown origin) Status: Acute (7) Mass of upper lobe of right lung Status: Acute (8) Diabetes mellitus, insulin dependent (IDDM), controlled Status: Chronic (9) JULIAN on CPAP Status: Chronic (10) COPD with exacerbation Status: Chronic (11) Hypertension Status: Chronic (12) GERD (gastroesophageal reflux disease) Status: Chronic (13) Prostatitis, acute Status: Acute (14) Vitamin B 12 deficiency Status: Chronic (15) Osteoarthritis Status: Chronic (16) Hyperlipidemia Status: Chronic (17) Sepsis Status: Acute (18) S/P laparoscopic cholecystectomy (19) Cirrhosis (20) Elevated liver enzymes (21) Urinary retention (22) Ibarra catheter in place Discharge Summary Discharge Physical Exam Allergies: Coded Allergies: No Known Drug Allergies (Unverified , 11/26/18) Vitals & I&Os Vital Signs Date Time Temp Pulse Resp B/P (MAP) Pulse Ox O2 Delivery O2 Flow Rate FiO2 12/11/18 08:00 100.1 84 18 153/62 (92) 91 Nasal Cannula 2.00 General Appearance: No Apparent Distress, WD/WN, Chronically ill, Obese Cardiovascular: Regular Rate, Rhythm, No Edema, No Gallop, No JVD, No Murmur, Normal Peripheral Pulses Gastrointestinal: Normal Bowel Sounds, No Organomegaly, No Pulsatile Mass, Non Tender, Soft Neurologic/Psychiatric: Alert, Oriented x3, No Motor/Sensory Deficits, Normal Mood/Affect Hospital Course Was the Problem List Reviewed?: Yes Patient had an uneventful night until urinary retention started and required a Ibarra catheter placement with 800 cc of urinary output return Elevated liver enzymes which is concerning but Dr. Hernandes did remove a lot of adhesions and this is not alarming at all but he did stress the fact that he had advanced cirrhosis from [place] We will proceed on with [facility] swing bed today his daughter will come and pick him up but midline and urinary catheter will be maintained indwelling We will start Urecholine now in preparation of discontinuation of the catheter hopefully soon and I will update urology No fever Cefepime 2 g IV every 12 hours will be maintained Lovenox 40 mg subcu every 12 hours for DVT prophylaxis was also be maintained Hospital course: Patient was admitted to the ER after 103 fever and confirmation of sepsis confirmed to be gallbladder and source so Dr. Hernandes was consulted underwent an uncomplicated cholecystectomy but it was a lengthy procedure due to severe adhesions. There was a question of whether or not there were small particles of stones in the common bile duct but upon reread from radiology it appeared to be more of a air appearance consistent with the surgery so will monitor liver enzymes closely and if continues to rise and having significant issues he will require an ERCP. Urinary retention managed with Ibarra catheter and labs remain stable and patient was deemed stable for swing bed status at [facility]. Cefepime will be maintained. Labs (last 24 hrs) Laboratory Tests 12/10/18 14:47: Glucometer 230H 12/10/18 16:32: Glucometer 227H 12/10/18 20:59: Glucometer 203H 12/11/18 05:43: Glucometer 154H 12/11/18 07:30: Urine Color YELLOW, Urine Clarity CLEAR, Urine pH 6, Urine Specific [place] 1.010L, Urine Protein NEGATIVE, Urine Glucose (UA) NEGATIVE, Urine Ketones NEGATIVE, Urine Nitrite NEGATIVE, Urine Bilirubin NEGATIVE, Urine Urobilinogen NORMAL, Urine Leukocyte Esterase NEGATIVE, Urine RBC (Auto) 1+H, Urine RBC 5-10H , Urine WBC 0-2, Urine Squamous Epithelial Cells NONE, Urine Crystals NONE, Urine Bacteria NEGATIVE, Urine Casts NONE, Urine Mucus NEGATIVE, Urine Culture Indicated NO 12/11/18 08:15: White Blood Count 7.7, Red Blood Count 3.36L, Hemoglobin 9.9L, Hematocrit 32L, Mean Corpuscular Volume 96, Mean Corpuscular Hemoglobin 30, Mean Corpuscular Hemoglobin Concent 31L, Red Cell Distribution Width 19.2H, Platelet Count 94L, Mean Platelet Volume 10.5H, Neutrophils (%) (Auto) 85H, Lymphocytes (%) (Auto) 8L, Monocytes (%) (Auto) 7, Eosinophils (%) (Auto) 1, Basophils (%) (Auto) 0, Neutrophils # (Auto) 6.5, Lymphocytes # (Auto) 0.6L, Monocytes # (Auto) 0.5, Eosinophils # (Auto) 0.1, Basophils # (Auto) 0.0, Neutrophils % (Manual) 86, Lymphocytes % (Manual) 8, Monocytes % (Manual) 4, Eosinophils % (Manual) 2, Basophils % (Manual) 0, Band Neutrophils 0, Anisocytosis MODERATE, Sodium Level 137, Potassium Level 3.9, Chloride Level 102, Carbon Dioxide Level 27, Anion Gap 8, Blood Urea Nitrogen 14, Creatinine 0.80, Estimat Glomerular Filtration Rate > 60, BUN/Creatinine Ratio 18, Glucose Level 184H, Calcium Level 8.2L, Corrected Calcium 8.9, Total Bilirubin 2.1H, Aspartate Amino Transf (AST/SGOT) 215H, Alanine Aminotransferase (ALT/SGPT) 136H, Alkaline Phosphatase 80, B-Type Natriuretic Peptide 46.1, Total Protein 5.6L, Albumin 3.1L 12/11/18 12:10: Glucometer 212H Microbiology 12/09/18 Blood Culture - Preliminary, Resulted No growth 12/09/18 Urine Culture - Final, Complete NO GROWTH Patient resulted labs reviewed. Pending Labs Laboratory Tests 12/11/18 07:30: Urine Color YELLOW, Urine Clarity CLEAR, Urine pH 6, Urine Specific [place] 1.010, Urine Protein NEGATIVE, Urine Glucose (UA) NEGATIVE, Urine Ketones NEGATIVE, Urine Nitrite NEGATIVE, Urine Bilirubin NEGATIVE, Urine Urobilinogen NORMAL, Urine Leukocyte Esterase NEGATIVE, Urine RBC (Auto) 1+, Urine RBC 5-10, Urine WBC 0-2, Urine Squamous Epithelial Cells NONE, Urine Crystals NONE, Urine Bacteria NEGATIVE, Urine Casts NONE, Urine Mucus NEGATIVE, Urine Culture Indicated NO 12/11/18 08:15: White Blood Count 7.7, Red Blood Count 3.36, Hemoglobin 9.9, Hematocrit 32, Mean Corpuscular Volume 96, Mean Corpuscular Hemoglobin 30, Mean Corpuscular Hemoglobin Concent 31, Red Cell Distribution Width 19.2, Platelet Count 94, Mean Platelet Volume 10.5, Neutrophils (%) (Auto) 85, Lymphocytes (%) (Auto) 8, Monocytes (%) (Auto) 7, Eosinophils (%) (Auto) 1, Basophils (%) (Auto) 0, Neutrophils # (Auto) 6.5, Lymphocytes # (Auto) 0.6, Monocytes # (Auto) 0.5, Eosinophils # (Auto) 0.1, Basophils # (Auto) 0.0, Neutrophils % (Manual) 86, Lymphocytes % (Manual) 8, Monocytes % (Manual) 4, Eosinophils % (Manual) 2, Basophils % (Manual) 0, Band Neutrophils 0, Anisocytosis MODERATE, Sodium Level 137, Potassium Level 3.9, Chloride Level 102, Carbon Dioxide Level 27, Anion Gap 8, Blood Urea Nitrogen 14, Creatinine 0.80, Estimat Glomerular Filtration Rate > 60, BUN/Creatinine Ratio 18, Glucose Level 184, Calcium Level 8.2, Corrected Calcium 8.9, Total Bilirubin 2.1, Aspartate Amino Transf (AST/SGOT) 215, Alanine Aminotransferase (ALT/SGPT) 136, Alkaline Phosphatase 80, B-Type Natriuretic Peptide 46.1, Total Protein 5.6, Albumin 3.1 12/11/18 12:10: Glucometer 212 Discussion & Recommendations Discharge Planning: <30 minutes discharge planning Discharge Home Medications: Active Scripts Active Lovenox (Enoxaparin Sodium) 40 Mg/0.4 Ml Syringe 40 Mg SQ Q12H 7 Days Urecholine (Bethanechol Chloride) 10 Mg Tablet 10 Mg PO ACHS 7 Days Cefepime 2 gm Injection (Cefepime HCl/Dextrose, Iso-Osm) 2 Gm/100 Ml Froz.piggy 2 Gm IV BID 14 Days Metoprolol Succinate 50 Mg Tab.er.24h 50 Mg PO DAILY Silvadene (Silver Sulfadiazine) 20 Gm Cream..g. 0 Gm TOP DAILY 7 Days Clotrimazole-Betamethasone Crm (Clotrimazole/Betamethasone Dip) 15 Gm Cream..g. 0 Gm TP BID 7 Days Reported Proair Hfa (Albuterol Sulfate) 1 Puff Puff 2 Puff INH Q4H PRN Aspirin EC (Aspirin) 81 Mg Tablet.dr 81 Mg PO DAILY Sertraline HCl 100 Mg Tablet 100 Mg PO DAILY Omeprazole 20 Mg Capsule.dr 20 Mg PO DAILY Meloxicam 7.5 Mg Tablet 7.5 Mg PO DAILY Cetirizine HCl 10 Mg Tablet 10 Mg PO DAILY Fish Oil 1,000 mg Capsule ([place] 3 Polyunsat Fatty Acids) 1,000 Mg Cap 1,000 Mg PO DAILY Vitamin B-12 (Cyanocobalamin (Vitamin B-12)) 2,000 Mcg Tablet 2,000 Mcg PO DAILY Ocuvite Adult 50 Plus Softgel (C,E,Zinc,Copper 11/Envwx5a/Lut) 1 Each Capsule 1 Cap PO DAILY Bevespi Aerosphere Inhaler (Glycopyrrolate/Formoterol Fum) 10.7 Gm Hfa.aer.ad 2 Puff INH BID Lantus (Insulin Glargine,Hum.rec.anlog) 100 Unit/1 Ml Vial 40 Unit SQ DAILY Humalog (Insulin Lispro) 100 Unit/1 Ml Vial 30 Units SC TIDAC Virtussin AC Liquid (Guaifenesin/Codeine Phosphate) 118 Ml Liquid 5 Ml PO Q4H PRN Flomax (Tamsulosin HCl) 0.4 Mg Cap 0.4 Mg PO DAILY Finasteride 5 Mg Tablet 5 Mg PO DAILY Lantus (Insulin Glargine,Hum.rec.anlog) 100 Unit/1 Ml Vial 80 Units SC HS Instructions to patient/family Please see electronic discharge instructions given to patient. Clinical Quality Measures DVT/VTE Risk/Contraindication: Risk Factor Score Per Nursin RFS Level Per Nursing on Admit: 4+=Very High Problem Qualifiers (1) Cholecystitis, acute with cholelithiasis: Biliary obstruction: without biliary obstruction Qualified Codes: K80.00 - Calculus of gallbladder with acute cholecystitis without obstruction (2) Nausea and vomiting: Vomiting type: unspecified Vomiting Intractability: intractable Qualified Codes: R11.2 - Nausea with vomiting, unspecified RAMEZ NGO DO Dec 11, 2018 12:30
--- NOTE | 2018-12-11 13:16 | Progress Note ---
Subjective Date Seen by a Provider: Dec 11, 2018 Time Seen by a Provider: 13:11 Subjective/Events-last exam Pain controlled. Tolerating liquids. Bilirubin and AST ALT increased. Likely post surgical. Elijah n/v fever sweats chills shortness of breath or chest pain. No other complaints. Focused Exam Lactate Level 12/09/18 15:52: Lactic Acid Level 1.86 Objective Exam Vital Signs Date Time Temp Pulse Resp B/P (MAP) Pulse Ox O2 Delivery O2 Flow Rate FiO2 12/11/18 08:00 100.1 84 18 153/62 (92) 91 Nasal Cannula 2.00 12/11/18 04:42 97.7 82 22 142/61 (88) 91 Nasal Cannula 4.00 12/11/18 00:00 98.7 68 22 139/57 (84) 92 Nasal Cannula 4.00 12/10/18 21:00 98.1 68 20 113/64 (80) 92 Nasal Cannula 4.00 12/10/18 20:00 Nasal Cannula 2.00 12/10/18 18:38 95 Nasal Cannula 4.00 12/10/18 16:20 99.2 82 20 138/68 (91) 93 Nasal Cannula 4.00 12/10/18 15:55 98.6 20 94 Nasal Cannula 4 12/10/18 15:45 Nasal Cannula 4 12/10/18 15:40 20 95 Nasal Cannula 4 12/10/18 15:30 20 93 Nasal Cannula 4 12/10/18 15:30 Nasal Cannula 4 12/10/18 15:20 20 93 Face Tent 10 12/10/18 15:15 Face Tent 10 12/10/18 15:10 20 95 Face Tent 10 12/10/18 15:00 20 93 Face Tent 10 12/10/18 15:00 Face Tent 10 12/10/18 14:50 20 94 Face Tent 10 12/10/18 14:45 T Piece 10 12/10/18 14:40 22 93 T Piece 10 12/10/18 14:34 T Piece 10 12/10/18 14:34 99.4 24 99 T Piece 10 I & O 12/11/18 07:00 Intake Total 2870 ml Output Total 1525 ml Balance 1345 ml Capillary Refill : Less Than 3 SecondsLess Than 3 Seconds General Appearance: No Apparent Distress, WD/WN, Chronically ill, Obese HEENT: PERRL/EOMI, Normal ENT Inspection, Moist Mucous Membranes Neck: Full Range of Motion, Normal Inspection, Non Tender Respiratory: Chest Non Tender, No Accessory Muscle Use, No Respiratory Distress Cardiovascular: Regular Rate, Rhythm, Normal Peripheral Pulses Gastrointestinal: tenderness (incisional, incisions c/d/i), other (multiple abdominal scars from previous surgeries) Extremity: Normal Capillary Refill, Normal Inspection, Normal Range of Motion, Non Tender, No Calf Tenderness, No Pedal Edema Neurologic/Psychiatric: Alert, Oriented x3, No Motor/Sensory Deficits, Normal Mood/Affect Skin: Normal Color, Warm/Dry Lymphatic: No Adenopathy Results Lab Laboratory Tests 12/10/18 14:47: Glucometer 230H 12/10/18 16:32: Glucometer 227H 12/10/18 20:59: Glucometer 203H 12/11/18 05:43: Glucometer 154H 12/11/18 07:30: Urine Color YELLOW, Urine Clarity CLEAR, Urine pH 6, Urine Specific [place] 1.010L, Urine Protein NEGATIVE, Urine Glucose (UA) NEGATIVE, Urine Ketones NEGATIVE, Urine Nitrite NEGATIVE, Urine Bilirubin NEGATIVE, Urine Urobilinogen NORMAL, Urine Leukocyte Esterase NEGATIVE, Urine RBC (Auto) 1+H, Urine RBC 5-10H , Urine WBC 0-2, Urine Squamous Epithelial Cells NONE, Urine Crystals NONE, Urine Bacteria NEGATIVE, Urine Casts NONE, Urine Mucus NEGATIVE, Urine Culture Indicated NO 12/11/18 08:15: White Blood Count 7.7, Red Blood Count 3.36L, Hemoglobin 9.9L, Hematocrit 32L, Mean Corpuscular Volume 96, Mean Corpuscular Hemoglobin 30, Mean Corpuscular Hemoglobin Concent 31L, Red Cell Distribution Width 19.2H, Platelet Count 94L, Mean Platelet Volume 10.5H, Neutrophils (%) (Auto) 85H, Lymphocytes (%) (Auto) 8L, Monocytes (%) (Auto) 7, Eosinophils (%) (Auto) 1, Basophils (%) (Auto) 0, Ne utrophils # (Auto) 6.5, Lymphocytes # (Auto) 0.6L, Monocytes # (Auto) 0.5, Eosinophils # (Auto) 0.1, Basophils # (Auto) 0.0, Neutrophils % (Manual) 86, Lymphocytes % (Manual) 8, Monocytes % (Manual) 4, Eosinophils % (Manual) 2, Basophils % (Manual) 0, Band Neutrophils 0, Anisocytosis MODERATE, Sodium Level 137, Potassium Level 3.9, Chloride Level 102, Carbon Dioxide Level 27, Anion Gap 8, Blood Urea Nitrogen 14, Creatinine 0.80, Estimat Glomerular Filtration Rate > 60, BUN/Creatinine Ratio 18, Glucose Level 184H, Calcium Level 8.2L, Corrected Calcium 8.9, Total Bilirubin 2.1H, Aspartate Amino Transf (AST/SGOT) 215H, Alanine Aminotransferase (ALT/SGPT) 136H, Alkaline Phosphatase 80, B-Type Natriuretic Peptide 46.1, Total Protein 5.6L, Albumin 3.1L 12/11/18 12:10: Glucometer 212H Microbiology 12/09/18 Blood Culture - Preliminary, Resulted No growth 12/09/18 Urine Culture - Final, Complete NO GROWTH Assessment/Plan Assessment/Plan Assessment/Plan Cholelithiasis and sludge Borderline gallbladder wall thickening suspect cholecystitis Fever suspect likely from gallbladder. UTI/prostatitis s/p lap lysis of adhesions cholecystectomy and IOC Possible choledocholithiasis Continue to monitor labs and if bilirubin trends up would get ERCP. Patient okay to be discharged from surgical standpoint, he understands need to continue monitoring labs and may need ERCP depending on clinical course. Discussed with Dr. Da Silva. Clinical Quality Measures DVT/VTE Risk/Contraindication: Risk Factor Score Per Nursin RFS Level Per Nursing on Admit: 4+=Very High JABIER ALVARENGA DO Dec 11, 2018 13:16
== END 2018-12-11 15:26 | disposition swing bed (61) | DRG 854 ==
LOC: ER 15:40 → 4TH 16:30
PROVIDERS: ADMIT Internal Medicine; ATTEND Internal Medicine
PROC: BF101ZZ Fluoroscopy of Bile Ducts using Low Osmolar Contrast (ICD-10-PCS; 2018-12-10)
PROC: 0FT44ZZ Resection of Gallbladder, Percutaneous Endoscopic Approach (ICD-10-PCS; principal; 2018-12-10 11:45)
DX: A41.51 Sepsis due to Escherichia coli [E. coli] (principal); K80.00 Calculus of gallbladder with acute cholecystitis without obstruction; K83.8 Other specified diseases of biliary tract; N41.0 Acute prostatitis; N39.0 Urinary tract infection, site not specified; J44.1 Chronic obstructive pulmonary disease with (acute) exacerbation; I12.9 Hypertensive chronic kidney disease with stage 1 through stage 4 chronic kidney disease, or unspecified chronic kidney disease; N18.9 Chronic kidney disease, unspecified; E11.9 Type 2 diabetes mellitus without complications; G47.33 Obstructive sleep apnea (adult) (pediatric); K21.9 Gastro-esophageal reflux disease without esophagitis; E53.8 Deficiency of other specified B group vitamins; M19.91 Primary osteoarthritis, unspecified site; E78.5 Hyperlipidemia, unspecified; R91.8 Other nonspecific abnormal finding of lung field; Z79.82 Long term (current) use of aspirin; Z79.4 Long term (current) use of insulin; Z87.891 Personal history of nicotine dependence; Z86.711 Personal history of pulmonary embolism
CPT/HCPCS: 36415; 71045; 76705; 76937; 80053; 81000; 82962; 83605; 83880; 85007; 85025; 85027; 85610; 85730; 87040; 87081; 87088; 94664; 96374; 96375

== ENCOUNTER → 2018-12-09 | Outpatient (CLI) | payer MEDICARE, OTHER ==
[~2018-12-09] MED LIST changes: +AMOX1TAB12 PO; +BETH10TA PO; +CEFE2FRO IV; +CLOT15CR6 TP; +ENOX40DI13 SQ; +FURO40TA4 PO; +LEVO500T80 PO; +METO-370 PO; +POTA10TA36 PO; +SILV20CR14 TOP; +SULF1TAB35 PO
[2018-12-09 14:42] LABS: BUN/CREATININE RATIO 12; CALCIUM 9.4 MG/DL (8.5-10.1); CARBON DIOXIDE 29 MMOL/L (21-32); CHLORIDE 101 MMOL/L (98-107); CREATININE SERUM 0.97 MG/DL (0.60-1.30); GFR ESTIMATED > 60; GLUCOSE 192 MG/DL (70-105); SODIUM 139 MMOL/L (135-145)
== END ==
LOC: LAB 14:10
PROVIDERS: ATTEND Internal Medicine
DX: J81.0 Acute pulmonary edema (principal); N28.9 Disorder of kidney and ureter, unspecified
CPT/HCPCS: 36415; 80048; 83880

== ENCOUNTER → 2018-12-14 | Outpatient (CLI) | payer MEDICARE, OTHER ==
[~2018-12-14] VITALS: Ht 200.7 cm; Wt 163.5 kg
[~2018-12-14] MED LIST changes: +BETH10TA PO; +CEFE2FRO IV; +ENOX40DI13 SQ
[2018-12-14 13:00] VITALS: BP 158/71
--- NOTE | 2018-12-14 14:45 | Diagnostic Imaging Report ---
INDICATION: Evaluate PICC line placement. COMPARISON: 12/09/2018. FINDINGS: The heart size is normal. There is some venous congestion. There is no pleural effusion or pneumothorax. The mediastinum is unremarkable. A left upper extremity PICC line is faintly seen over the upper mediastinum. The distal tip is not well visualized but does appear to be likely within the upper superior vena cava. IMPRESSION: Cardiomegaly and some venous congestion. The PICC line is difficult to visualize; however, it appears to be in the upper superior vena cava. Dictated by: Dictated on workstation # [id number]
== END ==
LOC: SDC 12:37
PROVIDERS: ATTEND Internal Medicine
DX: A41.51 Sepsis due to Escherichia coli [E. coli] (principal)
CPT/HCPCS: 36569; 71045; 76937

== ENCOUNTER → 2018-12-21 | Outpatient (CLI) | payer MEDICARE, OTHER ==
--- NOTE | 2018-12-21 14:47 | Diagnostic Imaging Report ---
INDICATION: Right upper lobe lung mass. TECHNIQUE: Serum blood glucose level at time of injection is 140 mg/dL. Patient was administered 13.3 mCi F-18 FDG intravenously in the right forearm and PET imaging from the top of skull to mid thighs was performed. Noncontrast CT was also performed for attenuation correction and anatomic correlation. COMPARISON: No prior PET studies are available for comparison. Comparison is made with a recent CT chest from 12/04/2018. FINDINGS: There is symmetric activity throughout the brain. Soft tissues of the neck are unremarkable. There is a hypermetabolic mass in the right lung apex posteriorly corresponding to the density noted on recent CT. This demonstrates SUV max of 14.3. Mass measures 2.3 cm. No other pulmonary hypermetabolic masses are seen. No abnormal hypermetabolism in the hilar or mediastinum is seen. There is physiologic activity in the GI and tracts. No suspicious hypermetabolism in the abdomen or pelvis is noted. Noncontrast CT does show some perihepatic ascites. There is also splenomegaly. IMPRESSION: 1. 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 No suspicious hypermetabolism in the mediastinum or wandy is seen to suggest metastatic disease. 2. No evidence of metastatic disease in the abdomen or pelvis. 3. Perihepatic ascites and splenomegaly. Dictated by: Dictated on workstation # [id number]
== END ==
LOC: RAD 12-13 10:49
PROVIDERS: ATTEND Nurse Practitioner Family
DX: R91.8 Other nonspecific abnormal finding of lung field (principal); R18.8 Other ascites; R16.1 Splenomegaly, not elsewhere classified

== ENCOUNTER 2018-12-29 07:45 | Outpatient (CLI) | payer MEDICARE, OTHER ==
[2018-12-29] VITALS (13 sets, daily range): BP systolic 132–166; BP diastolic 62–87
[~2018-12-29] VITALS: Ht 200.7 cm; Wt 160.8 kg
--- NOTE | 2018-12-29 08:00 | NUR ---
PATIENT INFORMS HAS LEFT UPPER PICC LINE AND THAT DR.. NGO WANTS LEFT IN UNTIL AFTER RESULTS ARE IN. DRESSING IS ROLLING UP AND IS AT 1 WEEK SINCE DRESSING CHANGE AT BRAD PER PATIENT. THIS RN TO PROVIDE STERILE DRESSING WITH NEW CAP. LABS DRAWN THRU EXISTING PICC LINE.
[2018-12-29 08:22] LABS: HEMOGLOBIN 10.8 G/DL (13.3-17.7); MEAN PLATELET VOLUME 10.1 FL (7.4-10.4); WHITE BLOOD COUNT 3.2 10^3/uL (4.3-11.0)
[2018-12-29] MEDS ORDERED: NS IV 1000 ML 1,000 ML IV STA (08:22)
[2018-12-29] MEDS ORDERED: MIDAZOLAM 2 MG/2 ML (VERSED) VIAL IVP ONE (08:30)
[2018-12-29] MEDS ORDERED: LIDOCAINE 1% INJ 20 ML 20 ML VIAL INJ ONE (08:30)
[2018-12-29] MEDS ORDERED: fentaNYL INJECTION 100 MCG/2 ML AMP IVP ONE (08:30)
[2018-12-29 08:39] LABS: INR 1.1 (0.8-1.4); PROTHROMBIN TIME PATIENT 14.2 SEC (12.2-14.7)
--- NOTE | 2018-12-29 10:40 | NUR ---
DEVANTE WELCH ARRIVED [place] [facility] AND GAVE BEDSIDE REPORT. PATIENT HAD RIGHT UPPER LUNG BX, AREA IS SOFT, NONTENDER WITH GAUZE AND OPSITE C/D/I, VSS AND PATIENT HAS NO COMPLAINTS, PATIENT ONLY REQUEST'S TEA/WATER AT THIS TIME. DEVANTE WELCH INFORMED XRAY TO BE DONE AT 1215. WILL CONTINUE TO MONITOR PATIENT. THIS RN PLACE EXTRA PILLOWS UNDER PATIENT'S KNEES AND ANKLES DUE TO BEING 6'7" TO PROVIDE COMFORT WHILE ON 4 HOUR BED REST.
[2018-12-29] MEDS ORDERED: HYDROcodone/APAP 5 MG/325 MG (LORTAB) TAB PO PRN (10:45)
--- NOTE | 2018-12-29 11:28 | Diagnostic Imaging Report ---
INDICATION: Right lung mass. Patient presents for CT-guided biopsy. FINDINGS: Patient was brought to the CT suite, placed on the table in the [id number] decubitus position. Axial imaging through the chest was performed to evaluate appropriate entry site. The procedure was performed utilizing conscious sedation with radiology nursing and constant patient monitoring. Patient was administered a total of 100 mcg of fentanyl intravenously and 2 mg of Versed intravenously. Total procedure time is 17 minutes. Posterior thorax was prepped and draped in the usual sterile fashion. Small amount of 1% lidocaine was utilized for local anesthesia. A 20-gauge Temno coaxial needle was advanced and placed with its tip within the lesion in the right lung apex. A total of four core biopsies were obtained. Needle was removed during the injection of blood patch. Followup imaging is without complicating features. Patient tolerated the procedure well. IMPRESSION: Successful CT-guided biopsy of right upper lobe lung mass, utilizing conscious sedation. Pathology results are currently pending. Dictated by: Dictated on workstation # [id number]
--- NOTE | 2018-12-29 13:07 | Diagnostic Imaging Report ---
Indication: Right lung biopsy followup Expiratory chest 12:46 PM Heart and mediastinum are normal. Lungs are clear. There are no effusions or pneumothoraces. Impression: Negative chest Dictated by: Dictated on workstation # [id number]
--- NOTE | 2018-12-29 14:20 | Pre-Op Note & Conscious Sedat ---
Pre-Operative Progress Note H&P Reviewed The H&P was reviewed, patient examined and no changes noted. Date H&P Reviewed: Dec 29, 2018 Time H&P Reviewed: 08:00 Pre-Op Diagnosis: Lung mass Conscious Sedation Pre-Proced Time 08:00 ASA Score 2 For ASA 3 and 4: Consider anesthesia and medical clearance. Also, for patients with a history of failed moderate sedation consider anesthesia. Airway Lungs Heart ASA score ASA 1: a normal healthy patient ASA 2: a patient with a mild systemic disease (mid diabetes, controlled hypertension, obesity ASA 3: a patient with a severe systemic disease that limits activity (angina, COPD, prior Myocardial infarction) ASA 4: a patient with an incapacitating disease that is a constant threat to life (CHF, renal failure) ASA 5: a moribund patient not expected to survive 24 hrs. (ruptured aneurysm) ASA 6: a declared brain- patient whose organs are being harvested. For emergent operations, add the letter E after the classification Mallampati Classification Grade 2 Sedation Plan Analgesia, Amnesia, Plan communicated to team members, Discussed options with patient/fam, Discussed risks with patient/fam The patient is an appropriate candidate to undergo the planned procedure, sedation, and anesthesia. The patient immediately re-assessed prior to indication. LEE ANN HALE MD Dec 29, 2018 14:20
== END 2018-12-29 15:06 ==
LOC: SDC 07:45
PROVIDERS: ATTEND Nurse Practitioner Family
DX: R91.8 Other nonspecific abnormal finding of lung field (principal)
CPT/HCPCS: 36415; 36430; 71045; 77012; 82962; 85027; 85610; 85730; 99156; 99157

== ENCOUNTER 2019-03-03 08:45 | Outpatient (RCR) | payer MEDICARE, OTHER ==
[~2019-03-03 08:45] MED LIST changes: -BETH10TA PO; +BTH10T PO; -OMEP20CA12 PO; +OMEP20CA13 PO
[2019-03-03 09:14] LABS: BASOPHILS % (AUTO) 0 % (0-10); EOSINOPHILS # (AUTO) 0.1 10^3/uL (0.0-0.3); EOSINOPHILS % (AUTO) 2 % (0-10); HEMATOCRIT 39 % (40-54); HEMOGLOBIN 11.9 G/DL (13.3-17.7); LYMPHOCYTES # (AUTO) 0.9 X 10^3 (1.0-4.0); LYMPHOCYTES % (AUTO) 25 % (12-44); MEAN CORPUSCULAR HEMOGLOBIN 29 PG (25-34); MEAN CORPUSCULAR HGB CONC 30 G/DL (32-36); MEAN CORPUSCULAR VOLUME 96 FL (80-99); MEAN PLATELET VOLUME 10.5 FL (7.4-10.4); MONOCYTES # (AUTO) 0.4 X 10^3 (0.0-1.0); MONOCYTES % (AUTO) 11 % (0-12); NEUTROPHILS # (AUTO) 2.2 X 10^3 (1.8-7.8); NEUTROPHILS % (AUTO) 61 % (42-75); PLATELET COUNT 97 10^3/uL (130-400); RED CELL DISTRIBUTION WIDTH 17.3 % (10.0-14.5); WHITE BLOOD COUNT 3.6 10^3/uL (4.3-11.0)
[2019-03-03 09:34] LABS: ALANINE AMINOTRANSFERASE 23 U/L (0-55); ALBUMIN 3.8 GM/DL (3.2-4.5); ALKALINE PHOSPHATASE 103 U/L (40-136); BILIRUBIN,TOTAL 1.2 MG/DL (0.1-1.0); BUN/CREATININE RATIO 14; CALCIUM 9.1 MG/DL (8.5-10.1); CARBON DIOXIDE 27 MMOL/L (21-32); CHLORIDE 107 MMOL/L (98-107); CREATININE SERUM 0.91 MG/DL (0.60-1.30); GFR ESTIMATED > 60; GLUCOSE 165 MG/DL (70-105); POTASSIUM 4.6 MMOL/L (3.6-5.0); SODIUM 141 MMOL/L (135-145); TOTAL PROTEIN 6.5 GM/DL (6.4-8.2)
== END 2019-04-11 | disposition home or self-care (01) ==
LOC: ONC 08:45
PROVIDERS: ATTEND Internal Medicine Hematology & Oncology
DX: C34.11 Malignant neoplasm of upper lobe, right bronchus or lung (principal); J44.9 Chronic obstructive pulmonary disease, unspecified; E11.9 Type 2 diabetes mellitus without complications; I10 Essential (primary) hypertension; Z87.891 Personal history of nicotine dependence; Z87.440 Personal history of urinary (tract) infections; E66.9 Obesity, unspecified; Z79.4 Long term (current) use of insulin; Z79.82 Long term (current) use of aspirin; Z79.899 Other long term (current) drug therapy; Z45.2 Encounter for adjustment and management of vascular access device
CPT/HCPCS: 36591; 80053; 82378; 85025; 96523; 99214

== ENCOUNTER 2020-10-05 05:35 | Outpatient (RCR) | payer MEDICARE ==
[~2020-10-05] VITALS: Ht 200.6 cm; Wt 158.8 kg
[~2020-10-05 05:35] MED LIST changes: +ASPI-1238 PO; -ASPI-983 PO; -CLAR-19 PO; +CLAR-31 PO; -METO-370 PO; +METO50TA7 PO; -OMEP20CA13 PO; +OMEP20CA18 PO; +SERT-414 PO; -SERT100T8 PO; -TAMS0.4C98 PO; +TMSL.4C PO
== END 2020-10-05 11:00 | disposition home or self-care (01) ==
LOC: PREOP 05:35
PROVIDERS: ATTEND Surgery
DX: Z01.812 Encounter for preprocedural laboratory examination (principal); R13.10 Dysphagia, unspecified; Z20.822 Contact with and (suspected) exposure to COVID-19
CPT/HCPCS: 87635

== ENCOUNTER 2020-10-09 07:30 | Day surgery (SDC) | payer MEDICARE, OTHER ==
[~2020-10-09] VITALS: Ht 200.6 cm; Wt 158.8 kg
[2020-10-09] MEDS ORDERED: LACTATED RINGERS 1,000 ML IV ONE (07:36)
[2020-10-09] MEDS ORDERED: LACTATED RINGERS 1,000 ML IV STA (07:59)
[2020-10-09] MEDS ORDERED: HURRICAINE EXT TUBE (BENZOCAINE) XX PRN (08:00)
[2020-10-09 08:02] VITALS: BP 155/73
--- NOTE | 2020-10-09 08:44 | Progress Note-Pre Operative ---
Pre-Operative Progress Note H&P Reviewed The H&P was reviewed, patient examined and no changes noted. Date Seen by Provider: Oct 09, 2020 Time Seen by Provider: 08:44 Date H&P Reviewed: Oct 09, 2020 Time H&P Reviewed: 08:44 Pre-Operative Diagnosis: gerd, dysphagia JABIER ALVARENGA DO Oct 09, 2020 08:44
[2020-10-09] MEDS ORDERED: PROPOFOL INJECTION 50 ML IV ONE (08:47)
[2020-10-09] MEDS ORDERED: HURRICAINE EXT TUBE (BENZOCAINE) ONE (08:50)
[2020-10-09 09:35] VITALS: BP 133/69
[2020-10-09] MEDS ORDERED: PANT40TA2 PO (09:39)
[2020-10-09 09:40] VITALS: BP_SYST 124; BP_SYST 140; BP_DIAS 61; BP_DIAS 69
--- NOTE | 2020-10-09 09:40 | Progress Note-Post Operative ---
Post-Operative Progess Note Surgeon (s)/Yarn Weigher (s) Surgeon JABIER ALVARENGA DO Yarn Weigher: na Pre-Operative Diagnosis gerd, dysphagia Post-Operative Diagnosis gastritis, reflux esophagitis Procedure & Operative Findings Date of Procedure 10/09/20 Procedure Performed/Findings egd c biopsies Anesthesia Type per commissary steward Estimated Blood Loss Estimated blood loss (mL): scant Specimens/Packing Specimens Removed antrum, ge JABIER ALVARENGA DO Oct 09, 2020 09:40
[2020-10-09 10:10] VITALS: BP 147/73
[2020-10-09 10:19] VITALS: BP 147/73
--- NOTE | 2020-10-09 11:08 | Anesthesia-General Post-Op ---
MAC Patient Condition Mental Status/LOC: Same as Preop Cardiovascular: Satisfactory Nausea/Vomiting: Absent Respiratory: Satisfactory Pain: Controlled Complications: Absent Post Op Complications Complications None Follow Up Care/Instructions Patient Instructions None needed. Anesthesiology Discharge Order Discharge Order Patient is doing well, no complaints, stable vital signs, no apparent adverse anesthesia problems. No complications reported per nursing. RADHA MCMAHON CRNA Oct 09, 2020 11:08
--- NOTE | 2020-10-09 12:48 | OPERATIVE REPORT ---
DATE OF SERVICE: 10/09/2020 PREOPERATIVE DIAGNOSES: Gastroesophageal reflux disease and dysphagia. POSTOPERATIVE DIAGNOSES: Gastritis and reflux esophagitis. PROCEDURES PERFORMED: EGD with biopsies. SURGEON: Jabier Hernandes DO. ANESTHESIA: Per ENTREPRENEUR. ESTIMATED BLOOD LOSS: Scant. COMPLICATIONS: None. INDICATIONS FOR PROCEDURE: The patient is a 75-year-old male with symptoms of GERD and dysphagia. He understands risks and benefits and wished to proceed. Consent was signed in the chart. DESCRIPTION OF PROCEDURE: The patient was taken to the endoscopy suite and placed in a left lateral recumbent position. Timeout was performed. Scope was inserted in the mouth, down the esophagus, stomach and into the duodenum without difficulty. There were no polyps, masses or ulcerations within the duodenum. Scope was slowly retracted back to the stomach, where it was further insufflated. Erythematous changes consistent with gastritis were present in the antrum. Biopsy was obtained. Scope was slowly retracted back and retroflexed noting no other pathology. Scope was returned to its normal position, slowly withdrawn to distal esophagus, some changes of reflux esophagitis present. Biopsies of this area were obtained. Scope was then slowly retracted back until completely removed. The patient tolerated the procedure well without any complications and taken to recovery room in a stable condition. RECOMMENDATIONS: The patient to stop omeprazole and start Protonix 40 mg daily. We will see how his symptoms are doing at that time. I would also consider barium swallow. Any issues before that be seen at that time, otherwise follow up in two weeks. Job ID: [id number] DocumentID: [id number] Dictated Date: 10/09/2020 09:36:37 Diesel Truck Driver Date: 10/09/2020 12:47:40 Dictated By: JABIER HERNANDES DO
== END 2020-10-09 10:20 | disposition home or self-care (01) ==
LOC: ENDO 07:30
PROVIDERS: ATTEND Surgery
DX: K21.00 Gastro-esophageal reflux disease with esophagitis, without bleeding (principal); K29.50 Unspecified chronic gastritis without bleeding; I10 Essential (primary) hypertension; J44.9 Chronic obstructive pulmonary disease, unspecified; G47.33 Obstructive sleep apnea (adult) (pediatric); E11.9 Type 2 diabetes mellitus without complications; K44.9 Diaphragmatic hernia without obstruction or gangrene; M19.90 Unspecified osteoarthritis, unspecified site; E03.9 Hypothyroidism, unspecified; E66.9 Obesity, unspecified; Z68.39 Body mass index [BMI] 39.0-39.9, adult; Z79.51 Long term (current) use of inhaled steroids; Z79.82 Long term (current) use of aspirin; Z79.899 Other long term (current) drug therapy; Z79.4 Long term (current) use of insulin; Z87.891 Personal history of nicotine dependence; Z85.118 Personal history of other malignant neoplasm of bronchus and lung
CPT/HCPCS: 82947; 88305; 88312

== ENCOUNTER → 2021-05-02 | Outpatient (CLI) | payer MEDICARE ==
[~2021-05-02] MED LIST changes: +PANT40TA2 PO; -SULF1TAB35 PO; +SULF1TAB38 PO
== END ==
LOC: LABNPT 09:01
PROVIDERS: ATTEND Radiology Diagnostic Radiology
DX: Z01.812 Encounter for preprocedural laboratory examination (principal); Z20.822 Contact with and (suspected) exposure to COVID-19
CPT/HCPCS: 87636

== ENCOUNTER → 2021-08-05 | Outpatient (CLI) | payer OTHER, MEDICARE ==
[~2021-08-05] MED LIST changes: -LEVO500T80 PO; +LEVO500T81 PO; -POTA10TA36 PO; +POTA10TA37 PO
== END ==
LOC: LABNPT 15:31
PROVIDERS: ATTEND Internal Medicine
DX: Z01.89 Encounter for other specified special examinations (principal)
CPT/HCPCS: 84145

== ENCOUNTER 2021-08-07 09:18 | Inpatient (IN) | payer MEDICARE ==
[~2021-08-07] VITALS: Ht 200.7 cm; Wt 171.5 kg
[2021-08-07] MEDS ORDERED: ACETAMINOPHEN 325 MG TABLET PO PRN (10:00)
[2021-08-07] MEDS ORDERED: ONDANSETRON 4 MG/2 ML (SDV) Z0FRAN IV PRN (10:00)
[2021-08-07] MEDS ORDERED: BISACODYL 10 MG SUPP (DULCOLAX) PR PRN (10:00)
[2021-08-07] MEDS ORDERED: ONDANSETRON 4 MG (ZOFRAN) ORAL DISSOLVE TAB PO PRN (10:00)
[2021-08-07] MEDS ORDERED: morphine INJ 4 MG/ML 1 ML (VIAL/SYRINGE) IV PRN (10:00)
[2021-08-07] MEDS ORDERED: polyethylene glycoL POWDER 17 GM (MIRALAX) PACK PO PRN (10:00)
[2021-08-07] MEDS ORDERED: CALCIUM CARBONATE 500 MG (TUMS) TAB.CHEW PO PRN ×2 (10:00→12:00)
[2021-08-07] MEDS ORDERED: LACTULOSE SYRUP 10GM/15ML (ENULOSE) 30ML UDC PO PRN (10:00)
[2021-08-07] MEDS ORDERED: MELATONIN 3 MG TABLET PO PRN (10:00)
[2021-08-07] MEDS ORDERED: ANTACID SUSP 30 ML UDC (MYLANTA) PO PRN (10:00)
[2021-08-07] MEDS ORDERED: RT-ALBUTEROL/IPRATROPIUM 3 ML (DUONEB) VIAL INH SCH (10:00)
[2021-08-07] MEDS ORDERED: PATIENT MAY USE OWN MEDS, ALL PO SCH (10:00)
[2021-08-07] MEDS ORDERED: PHARMACY TO DOSE IV SCH (10:00)
[2021-08-07] MEDS ORDERED: MILK OF MAGNESIA 400 MG/5 ML 30 ML UDC PO PRN (10:00)
[2021-08-07] MEDS ORDERED: diphenhydrAMINE 50 MG/ML INJ (BENADRYL) IVP PRN (10:00)
--- OUTSIDE RECORDS SUMMARY | 2021-08-07 11:22 | XMS REPORT | Encounter Summary ---
Author Author [facility] Organization [facility] Address Unknown Phone Unavailable Care Team Providers Care Seafood Clerk Name Role Phone Raven Da Silva DO PCP Encounter Details Care Team Description Date Type Department 07/18/2021 Hospital Imaging: Main [facility], Encounter [facility] [address] [place] [address] Social History Date Tobacco Use Types Packs/Day Years Used Quit: 03/13/2001 Former Smoker Smokeless Tobacco: Never Used Comments Alcohol Use Standard Drinks/Week Never 0 (1 standard drink = 0.6 o z pure alcohol) Alcohol Habits Answer Date Recorded How often do you have a drink containing alcohol? Never 01/27/2019 How many drinks containing alcohol do you have on No t asked a typical day when you are drinking? How often do you have six or more drinks on one Not asked occasion? Comment: Not asked Sex Assigned at Date Recorded Male 01/10/2020 1:27 PM CDT Date Recorded COVID-19 Exposure Response 07/16/2021 4:48 PM GREASER HELPER In the last month, have you been in contact with No / Unsure someone who was confirmed or suspected to have Coronavirus / COVID-19? documented as of this encounter Functional Status Date of Assessment Functional Status Response 07/15/2021 Does the patient have a hearing impairment: No 07/15/2021 Does the patient have a visual impairment: Yes 07/15/2021 Does the patient have impaired ambulation: No 07/15/2021 Does the patient have an activity of daily living No (ADL) impairment: 07/15/2021 Does the patient have an instrumental activity of No daily living (IADL) impairment: Date of Assessment Cognitive Status Response 07/15/2021 Does the patient have a cognitive impairment: No documented as of this encounter Medications at Time of Discharge Start Date End Date Medication Sig Dispensed Refills 01/12/2019 amLODIPine (NORVASC) 5 mg Take 1 tablet 0 tablet by mouth daily. aspirin 81 mg chewable Chew 81 mg by 0 tablet mouth daily. Take with food. 09/28/2018 BEVESPI AEROSPHERE 9-4.8 Inhale 2 0 mcg HFA inhaler puffs by mouth into the lungs twice daily. 04/16/2021 cyclobenzaprine Take one 30 tablet 1 (FLEXERIL) 10 mg tablet tablet by mouth at bedtime daily. 07/15/2021 08/14/2021 enoxaparin (LOVENOX) 150 Inject 1 mL 30 each 0 mg/mL syringe under the skin daily for 30 days. 12/22/2018 finasteride (PROSCAR) 5 Take 1 tablet 0 mg tablet by mouth daily. 07/11/2021 gabapentin (NEURONTIN) Take one 90 capsule 1 300 mg capsule capsule by mouth every 8 hours. 07/15/2021 08/14/2021 HYDROcodone/acetaminophen Take one 30 tablet 0 (NORCO) 5/325 mg tablet tablet by mouth every 8 hours as needed for Pain for up to 30 days insulin lispro (HUMALOG Inject under 0 PEN SC) the skin. 12/13/2018 LANTUS U-100 INSULIN 100 Inject 40 0 unit/mL injection Units under the skin twice daily. 07/11/2021 loratadine (CLARITIN) 10 Take one 90 tablet 0 mg tablet tablet by mouth every morning. 09/25/2018 losartan(+) (COZAAR) 100 Take 1 tablet 0 mg tablet by mouth daily. 09/30/2018 meloxicam (MOBIC) 7.5 mg Take 1 tablet 0 tablet by mouth daily. 09/25/2018 metFORMIN (GLUCOPHAGE) Take 1 tablet 0 500 mg tablet by mouth twice daily. omeprazole DR(+) Take 20 mg by 0 (PRILOSEC) 20 mg capsule mouth daily. 07/08/2021 08/07/2021 ondansetron HCL (ZOFRAN) Take one 120 tablet 0 4 mg tablet tablet by mouth every 6 hours as needed for Nausea or Vomiting for up to 30 days. 09/25/2018 pioglitazone (ACTOS) 15 Take 1 tablet 0 mg tablet by mouth daily. 09/28/2018 PROAIR HFA 90 Inhale 2 0 mcg/actuation inhaler puffs by mouth into the lungs four times daily. 07/15/2021 08/14/2021 prochlorperazine maleate Take one 120 tablet 0 (COMPAZINE) 5 mg tablet tablet by mouth every 6 hours as needed for Nausea or Vomiting for up to 30 days. 09/30/2018 sertraline (ZOLOFT) 100 Take 1 tablet 0 mg tablet by mouth daily. 12/22/2018 tamsulosin (FLOMAX) 0.4 Take 1 0 mg capsule capsule by mouth daily. vitamins, B complex tab Take 1 tablet 0 by mouth daily. 07/15/2021 07/22/2021 filgrastim-sndz (ZARXIO) Inject 0.8 mL 4.8 mL 0 480 mcg/0.8 mL inj under the syringe skin every 24 hours for 6 days. 07/15/2021 07/20/2021 levoFLOXacin (LEVAQUIN) Take one 5 tablet 0 500 mg tablet tablet by mouth daily for 5 days. documented as of this encounter Discharge Disposition Code Departure Means Destination Disposition Home Home or Self Care documented in this encounter Plan of Treatment Not on filedocumented as of this encounter Procedures Comments Procedure Name Priority Date/Time Associated Diag nosis GENERAL RAD CHEST Routine 07/18/2021 Diagnosis un known EXTERNAL IMAGING 12:00 AM GREASER HELPER documented in this encounter Results * GENERAL RAD CHEST EXTERNAL IMAGING (07/18/2021 12:00 AM GREASER HELPER) Specimen Narrative Scheduling, Silent - 07/24/2021 1:47 PM GREASER HELPER This order has been auto finalized and does not contain a result. documented in this encounter Visit Diagnoses Diagnosis Diagnosis unknown Other unknown and unspecified cause of morbidity or mortality documented in this encounter Additional Health Concerns Noted Time Assessment 07/15/2021 1:27 PM GREASER HELPER A fall risk assessment has been complet ed for the patient 01/27/2019 11:20 AM CDT PHQ-2 Depression Total Score: 0 documented as of this encounter Care Teams Start Date End Date Seafood Clerk Relationship Specialty 01/14/19 Raven Da Silva DO PCP - General Internal [facility] [place] [address] documented as of this encounter
--- OUTSIDE RECORDS SUMMARY | 2021-08-07 11:22 | XMS REPORT | Encounter Summary ---
Author Author [facility] Organization [facility] Address Unknown Phone Unavailable Care Team Providers Care Cement Finisher Name Role Phone Raven Da Silva DO PCP Reason for Visit * Reason Comments Thrombocytopenia * Consult, Test & Treat (Routine) - Pending Review Diagnoses / Procedures Referred By Contact Referred To Conta ct Specialty Diagnoses Malignant neoplasm of upper lobe of right lung (HCC) Jaziel Williamson MD [address] [place] [address] Ayo Hernandez MD [address] [place] [address] Oncology Referral ID Status Reason Start Date Expiration Visits Vi sits Date Requested Authorized [id number] Pending Specialty Services 07/08/2021 07/08/2022 1 1 Review Required Encounter Details Care Team Description Date Type Department Ayo Hernandez MD [address] [place], [place] [id number] Thrombocytopenia (HCC) (Primary Dx) 07/25/2021 Office Visit Hematology: [facility] [address] [place] [address] Social History Date Tobacco Use Types Packs/Day [...] PM CDT Date Recorded COVID-19 Exposure Response 07/29/2021 8:59 AM BRIDGE LEVERMAN In the last month, have you been in contact with No / Unsure someone who was confirmed or suspected to have Coronavirus / COVID-19? documented as of this encounter Last Filed Vital Signs Reading Time Taken Comments Vital Sign 127/53 07/25/2021 10:28 AM BRIDGE LEVERMAN Blood Pressure 72 07/25/2021 10:28 AM BRIDGE LEVERMAN Pulse - - Temperature 16 07/25/2021 10:28 AM BRIDGE LEVERMAN Respiratory Rate 100% 07/25/2021 10:28 AM BRIDGE LEVERMAN Oxygen Saturation - - Inhaled Oxygen Concentration 161 kg (355 lb) 07/25/2021 10:28 AM BRIDGE LEVERMAN Weight 197 cm (6' 5.56") 07/25/2021 10:28 AM BRIDGE LEVERMAN Height 41.49 07/25/2021 10:28 AM BRIDGE LEVERMAN Body Mass Index documented in this encounter Functional Status Date of Assessment [...] impairment: No documented as of this encounter Progress Notes * Ayo Hernandez MD - 07/25/2021 9:30 AM BRIDGE LEVERMAN Name: Elian Gaffney : 1945 AGE: 76 y. o. DATE OF SERVICE: 07/25/2021 Subjective: Reason for Visit: Thrombocytopenia Cancer Staging Malignant neoplasm of upper lobe of right lung (HCC) Staging form: Lung, AJCC 8th Edition - Clinical: Stage IB (cT2a, cN0, cM0) - Signed by Blake Ascencio MD on 07/11/2019 - Pathologic: Stage Unknown (rpTX, pN2, cM0) - Signed by Armando Cancino MBBS on 06/17/2021 History of present illness: Mr Gaffney is 76 y.o. male who presented for evaluation of thrombocytopenia. 1. He has history of lung cancer in [place] (cT2N0) s/p SBRT in 03/2019. Metastasis to R paratracheal lymph nodes (pN2) in 02/2021 s/p SBRT to [address] LN on 05/2021,then was started on adjuvant carboplatin/taxol.(C1D1 on 07/08/21) 2. He didn't tolerate his first cycle of adjuvant chemotherapy that well. He was also noted to have progressive thrombocytopenia, so was sent to hematology for evaluation. 3. US doppler from 06/17/21 - showed left popliteal vein thrombosis, he was then s tarted on lovenox (1mg/kg/day due to thrombocytopenia) 4. On review of his labs, he was noted to have low platelets at least from 2014 (as per our records), platelets ranging from 80-100s. Previous workup: - Bone marrow bx at [facility] in 11/20/2014: Minimal megakaryocytic hyperplas ia without clustering, mild reticulin fibrosis and mildly hypercellular bone mar row. JAK2 V617F mutation analysis: Negative. - CT chest wo from 03/05/21: Radiographically concerning for the presence of cirr hosis and portal hypertension. - US abd from 05/22/21: Splenomegaly - 18.7 cm - US doppler venous left- 07/15/21- Predominantly nonocclusive thrombus throughou t the left popliteal vein. Interval history: On interview today, he reports that he had a difficult time after first cycle of his chemotherapy. He was extremely fatigued and was having nausea and vomiting. He was also recently admitted for failure to thrive and was also found to have neutropenia and UTItreated with IV antibiotics and G-CSF support. He was a lso found to have A. fib during the admission but later reverted back to sinus r hythm. He is starting to feel better now and is concerned if the next cycle of chemotherapy would make him feel worse again. He denied any hematuria, hematochezia, hemoptysis, hematemesis, gum bleeding, ep istaxis, petechiae or purpura. But reports of easy bruising. He is tolerating Lovenox well without any evidence of bleeding. He denies any known history of viral hepatitis. Past medical history COPD, diabetes mellitus, hypertension, history of pulmonary emboli in 1999 when he was hospitalized for severe diverticulitis. Atrial fibrillation. Social history Previous smoker, quit in 2000 Used to be a heavy drinker, but quit in 1999 Denies any recreational drug use Review of Systems Constitutional: Positive for activity change, diaphoresis and fatigue. Negative for chills and fever. HENT: Negative for mouth sores and sore throat. Eyes: Negative for photophobia. Respiratory: Positive for shortness of breath. Negative for cough. Cardiovascular: Positive for leg swelling. Negative for chest pain. Gastrointestinal: Positive for nausea. Negative for blood in stool, constipation and diarrhea. Endocrine: Positive for heat intolerance. Negative for cold intolerance. Genitourinary: Negative for dysuria, hematuria and urgency. Musculoskeletal: Negative for back pain. Skin: Negative for rash. Neurological: Negative for syncope and headaches. Hematological: Negative for adenopathy. Psychiatric/Behavioral: Negative for confusion. The patient is not nervous/anxio us. Objective: amLODIPine (NORVASC) 5 mg tablet Take 1 tablet by mouth daily. aspirin 81 mg chewable tablet Chew 81 mg by mouth daily. Take with food. BEVESPI AEROSPHERE 9-4.8 mcg HFA inhaler Inhale 2 puffs by mouth into the noam ngs twice daily. cefdinir (OMNICEF) 300 mg capsule Take 300 mg by mouth every 12 hours. cyclobenzaprine (FLEXERIL) 10 mg tablet Take one tablet by mouth at bedtime daily. enoxaparin (LOVENOX) 150 mg/mL syringe Inject 1 mL under the skin daily for 30 days. finasteride (PROSCAR) 5 mg tablet Take 1 tablet by mouth daily. furosemide (LASIX) 40 mg tablet Take 40 mg by mouth every morning. gabapentin (NEURONTIN) 300 mg capsule Take one capsule by mouth every 8 hour s. HYDROcodone/acetaminophen (NORCO) 5/325 mg tablet Take one tablet by mouth e very 8 hours as needed for Pain for up to 30 days insulin lispro (HUMALOG PEN SC) Inject under the skin. LANTUS U-100 INSULIN 100 unit/mL injection Inject 40 Units under the skin tw ice daily. loratadine (CLARITIN) 10 mg tablet Take one tablet by mouth every morning. losartan(+) (COZAAR) 100 mg tablet Take 1 tablet by mouth daily. meloxicam (MOBIC) 7.5 mg tablet Take 1 tablet by mouth daily. metFORMIN (GLUCOPHAGE) 500 mg tablet Take 1 tablet by mouth twice daily. metoclopramide HCL (REGLAN) 5 mg tablet Take 5 mg by mouth four times daily. metoprolol tartrate (LOPRESSOR) 50 mg tablet Take 50 mg by mouth twice daily . nitrofurantoin macrocrystaL (MACRODANTIN) 100 mg capsule Take 100 mg by mout h every 6 hours. Take with food. Indications: genitourinary tract infections omeprazole DR(+) (PRILOSEC) 20 mg capsule Take 20 mg by mouth daily. ondansetron HCL (ZOFRAN) 4 mg tablet Take one tablet by mouth every 6 hours as needed for Nausea or Vomiting for up to [address] (PROTONIX) 40 mg tablet Take 40 mg by mouth daily. pioglitazone (ACTOS) 15 mg tablet Take 1 tablet by mouth daily. PROAIR HFA 90 mcg/actuation inhaler Inhale 2 puffs by mouth into the lungs f our times daily. prochlorperazine maleate (COMPAZINE) 5 mg tablet Take one tablet by mouth ev mary 6 hours as needed for Nausea or Vomiting for up to 30 days. sertraline (ZOLOFT) 100 mg tablet Take 1 tablet by mouth daily. tamsulosin (FLOMAX) 0.4 mg capsule Take 1 capsule by mouth daily. vitamins, B complex tab Take 1 tablet by mouth daily. Vitals: 07/25/21 1028 BP: 127/53 BP Source: Arm, Right Upper Patient Position: Sitting Pulse: 72 Resp: 16 SpO2: 100% Weight: (!) 161 kg (355 lb) Height: 197 cm (6' 5.56") PainSc: Four Body mass index is 41.49 kg/m. Pain Score: Four Fatigue Scale: 5 Pain Addressed: Current regimen working to control pain. Physical Exam Constitutional: Appearance: Normal appearance. Comments: On a wheel chair, oxygen supplementation via nasal canula HENT: Head: Normocephalic and atraumatic. Nose: Nose normal. Mouth/Throat: Mouth: Mucous membranes are moist. Eyes: Extraocular Movements: Extraocular movements intact. Pupils: Pupils are equal, round, and reactive to light. Cardiovascular: Rate and Rhythm: Normal rate and regular rhythm. Pulses: Normal pulses. Heart sounds: Normal heart sounds. Pulmonary: Effort: Pulmonary effort is normal. No respiratory distress. Breath sounds: No wheezing, rhonchi or rales. Abdominal: General: Abdomen is flat. Bowel sounds are normal. Palpations: Abdomen is soft. Musculoskeletal: Right lower leg: Edema present. Left lower leg: Edema present. Skin: General: Skin is warm. Neurological: General: No focal deficit present. Mental Status: He is alert and oriented to person, place, and time. Psychiatric: Mood and Affect: Mood normal. Assessment and Plan: 1. 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 Splenomegaly 3. Stage III lung cancer 4. Left popliteal vein DVT 07/15/21 5. Chemotherapy induced neutropenia 6. Normocytic anemia 7. COPD 8. DM-2 9. History of PE in 1999 when he was hospitalized for severe diverticulitis. 10. Recent diagnosis of paroxysmal A fib We have interviewed and examined the patient and reviewed his previous and recen t labs, imagings and pathology results. We discussed the possible etiologies of his thrombocytopenia and possible management options. On review of his labs, it was noted that he had thrombocytopenia at least from 2 015 [as per our records] ranging from 80K to 100K. The presence of thrombocytop enia less than 100,000 platelets without etiology is consistent with chronic ITP . Another possibility is the presence of liver disease. He has no known liver disease, although CT imaging has suggested the possibility. He is now receiving chemotherapy and has had an acute decline to less than 50K a fter the first cycle of his adjuvant chemotherapycarboplatin/paclitaxel. Thi s acute worsening of the platelet count could be related to his chemotherapy. Th ere are multiple other causes to consider in the setting of lung cancer includin g DIC, reactions to other drugs, consumption by thrombosis, and immune mediated thrombocytopenia. There is also the possibility of a bone marrow disorder, such as MDS. He was also found to have acute DVT on 07/15/2021 which might have added to thrombocytopenia due to consumption of platelets from a clot. We will send a peripheral smear. He has not been able to receive his adjuvant chemotherapy due to his worsening t hrombocytopenia. In addition he has had high risk of bleeding due to anticoagul ation for DVT. Is important to raise the platelet count. I recommend treatment of chronic ITP with eltrombopag. If this is not successful, other options could be splenic embolization or radiation, although these are associated with greater toxicity. Platelet transfusion can be used to temporarily increase the platelet count if needed depending on the clinical situation. I discussed the case with with Dr Williamson (Thoracic Oncology). Regarding the acute DVT, he is at a lower dose of Lovenox due to thrombocytopeni a. We expressed the concern for recurrent DVT/progression of DVT with inadequat e doses of anticoagulation. If full anticoagulation could not be offered, IVC f ilter placement could be considered. Regarding his recent diagnosis of A. fib, he is rate controlled, and he is on so me anticoagulation. Recommended him to follow-up with his batch records clerk. Regarding the possibility of liver disease, he he is a scheduled to see Dr. Carolina fritz on 08/19/2021. We will send chronic hepatitis panel. Telehealth appointment in about a month. -Patient will follow up in the interim should they develop adverse symptoms. Terrell newman verbalized understanding and agrees to plan of care. Patient seen and discussed with KARLO Flower PGY 6- Hematology/Medical Oncology Fellow [facility] Pager- ATTESTATION I personally performed the keenan portions of the E/M visit, discussed the case wit h the fellow, and concur with documentation of history, physical exam, assessmen t, and treatment plan unless otherwise noted. I edited the note. I discussed t he case with with Dr Williamson (Thoracic Oncology). Staff name: Ayo Hernandez MD Date: 07/31/2021 GE LEVERMAN documented in this encounter Miscellaneous Notes * Patient Instructions - Daniel Lua RN - 07/25/2021 9:30 AM BRIDGE LEVERMAN Your Care Team Dr. Ayo Hernandez Air Crew Officer Luisa Mcpherson APRN Hematology Nurse Practitioner Clinical Nurse Coordinators (CNC's) Daniel Garcia [phone] DENNIS Lorenzo: [phone] Messages left on nurses' line are checked Thursday-Thursday 8:00 AM - 3:30PM Evening (after 3:30PM), weekend and holiday on-call [phone] For urgent needs after hours, please ask for the oncologist on-call to be pages. For urgent needs during business hours, please ask for Dr. Hernandez' nurse, to be p aged. Notes: -Allow one business week for our office to complete any requested paperwork (FML A, etc.) -My Chart is the preferred communication method. Please allow one business day f or questions to be answered. -Clinic policy for medication refills: All prescriptions need to be called in 24 hours in advance and will be answe red within 1 business day. Multiple calls and messages will delay in refilling medication as it limits our ability to respond appropriately. Do not go to the pharmacy without being sure your prescription is there and ready for pickup. GE LEVERMAN documented in this encounter Plan of Treatment Not on filedocumented as of this encounter Results * HEPATITIS B CORE AB TOT (IGG+IGM) (07/29/2021 9:08 AM BRIDGE LEVERMAN) Anti HBc Total NONREACTIVEComment: Antibodies NR-NONREACTIVE [facility] to HBV core antigen (anti-HBc) were not detected. Specimen Blood (substance) Performing Organization Address [facility]/ZIP Code P ludy Number MAIN LAB [address] [place] [address] * HEPATITIS B SURFACE AB (07/29/2021 9:08 AM BRIDGE LEVERMAN) Anti HBs NEGComment: Individual [facility] considered to be non-immune to HBV infection. Specimen Blood (substance) Performing Organization Address City/[facility]/ZIP Code P ludy Number MAIN LAB [address] [place] [address] * HEPATITIS B SURFACE AG (07/29/2021 9:08 AM BRIDGE LEVERMAN) HBsAg NONREACTIVEComment: HBs NR-NONREACTIVE [facility] antigen not detected. Specimen Blood (substance) Performing Organization Address City/[facility]/ZIP Code P ludy Number MAIN LAB [address] [place] [address] * HEPATITIS A IGM (07/29/2021 9:08 AM BRIDGE LEVERMAN) Hepatitis A IgM NONREACTIVE NR-NONREACTIVE MAIN LAB Specimen Blood (substance) Performing Organization Address [facility] Code P ludy Number [facility] MAIN [facility] [address] [place] [phone] * HEPATITIS C ANTIBODY W REFLEX HCV PCR QUANT (07/29/2021 9:08 AM BRIDGE LEVERMAN) Anti HCV NONREACTIVEComment: Antibodies NR-NONREACTIVE [facility] MAIN [facility] to HCV were not detected. Specimen Blood (substance) Performing Organization Address [facility] P ludy Number [facility] MAIN LAB [address] [place] [phone] * PERIPHERAL SMEAR (07/29/2021 9:08 AM BRIDGE LEVERMAN) Peripheral NORMOCYTIC ANEMIA WITH [facility] MAIN LAB Smear ANISOCYTOSIS. POLYCHROMASIA PRESENT ABSOLUTE LYMPHOCYTOPENIA. MODERATE THROMBOCYTOPENIA WITH NORMAL PLATELET MORPHOLOGY. Pathologist INTERPRETED BY OBEY Luis AB Signature By the PATH SIGNATURE ABOVE , I attest that I have personally formulated the final interpretation expressed in this report and that the above diagnosis is based upon my examination of the slides and/or other material indicated in this report. Specimen Blood (substance) Performing Organization Address [facility] P ludy Number MAIN LAB [address] [place] [address] documented in this encounter Visit Diagnoses Diagnosis Thrombocytopenia (HCC) - Primary Thrombocytopenia, unspecified documented in this encounter Historical Medications * This list may reflect changes made after this encounter. Start Date End Date Medication Sig Dispensed Refills metoclopramide HCL Take 5 mg by 0 (REGLAN) 5 mg tablet mouth four times daily. pantoprazole DR Take 40 mg by 0 (PROTONIX) 40 mg tablet mouth daily. nitrofurantoin Take 100 mg 0 macrocrystaL by mouth (MACRODANTIN) 100 mg every 6 capsuleIndications: hours. Take genitourinary tract with food. infections Indications: genitourinary tract infections metoprolol tartrate Take 50 mg by 0 (LOPRESSOR) 50 mg tablet mouth twice daily. furosemide (LASIX) 40 mg Take 40 mg by 0 tablet mouth every morning. cefdinir (OMNICEF) 300 mg Take 300 mg 0 capsule by mouth every 12 hours. added in this encounter Additional Health Concerns Noted Time Assessment 07/25/2021 10:28 AM BRIDGE LEVERMAN A fall risk assessment has been complet ed for the patient 01/27/2019 11:20 AM CDT PHQ-2 Depression Total Score: 0 documented as of this encounter Care Teams Start Date End Date Cement Finisher Relationship Specialty 01/14/19 Raven Da Silva DO PCP - General Internal [address] [place] [address] documented as of this encounter
--- OUTSIDE RECORDS SUMMARY | 2021-08-07 11:22 | XMS REPORT | Encounter Summary ---
Author Author [facility] Organization [facility] Address Unknown Phone Unavailable Care Team Providers Care Professor Of Forestry Name Role Phone Raven Da Silva DO PCP Encounter Details Care Team Description Date Type Department Clarissa Shah MA Malignant neoplasm of upper lobe of righ t lung (HCC) 07/19/2021 Orders Only Oncology: [facility] [address] [place] [address]. [place] [address] Social History Date Tobacco Use Types Packs/Day [...] Recorded COVID-19 Exposure Response 07/16/2021 4:48 PM WINDOW SYSTEMS ADMINISTRATOR In the last month, have you been [...] impairment: No documented as of this encounter Plan of Treatment Not on filedocumented as of this encounter Procedures Comments Procedure Name Priority Date/Time Associated Diag nosis CBC AND DIFF Routine 07/18/2021 Malignant neopl asm of upper lobe of right lung (HCC) COMPREHENSIVE METABOLIC Routine 07/18/2021 Malign ant neoplasm of PANEL upper lobe of right lung (HCC) documented in this encounter Results * COMPREHENSIVE METABOLIC PANEL (07/18/2021) Sodium [facility] Potassium [facility] Chloride [facility] CO2 [facility] Blood Urea [facility] Creatinine [facility] Glucose [facility] Calcium [facility] Total Protein [facility] Total Bilirubin [facility] Albumin [facility] Alk Phosphatase [facility] AST (SGOT) [facility] ALT (SGPT) [facility] eGFR Non [facility] [place] eGFR [facility] Anion Gap [facility] Specimen Blood - Blood (substance) Narrative Performing Organization Address City/State/ZIP Code P ludy Number [facility] [address] [phone] * CBC AND DIFF (07/18/2021) White Blood [facility] RBC [facility] Hemoglobin [facility] Hematocrit [facility] Platelet Count [facility] RDW [facility] Neutrophils [facility] Absolute [facility] Neutrophil [facility] Count Lymphocytes [facility] Absolute Lymph [facility] Monocytes [facility] Absolute [facility] Monocyte Count [facility]ENTER Eosinophil [facility] Absolute [facility] Eosinophil [facility] Count Basophils [facility] Absolute [facility] Basophil Count CENTER Atypical Lym [facility] Metamyelocyte [facility] Myelocyte [facility] Promyelocyte [facility] Blast [facility] RBC Morph [facility] WBC Morphology [facility] Specimen Blood - Blood (substance) Narrative Performing Organization Address City/State/ZIP Code P ludy Number [facility] [address] [place] [id number] documented in this encounter Visit Diagnoses Diagnosis Malignant neoplasm of upper lobe of rig ht lung (HCC) Malignant neoplasm of upper lobe, bronc hus or lung documented in this encounter Additional Health Concerns Noted Time Assessment 07/15/2021 1:27 PM WINDOW SYSTEMS ADMINISTRATOR A fall risk assessment has been complet ed for the patient 01/27/2019 11:20 AM CDT PHQ-2 Depression Total Score: 0 documented as of this encounter Care Teams Start Date End Date Professor Of Forestry Relationship Specialty 01/14/19 Raven Da Silva DO PCP - General Internal [address] [place] [address] documented as of this encounter
--- OUTSIDE RECORDS SUMMARY | 2021-08-07 11:22 | XMS REPORT | Encounter Summary ---
Author Author [facility] Organization [facility] Address Unknown Phone Unavailable Care Team Providers Care Financial Counselor Name Role Phone Raven Da Silva DO PCP Reason for Visit * Reason Onset Date Comments Appointment Request 08/07/2021 Encounter Details Care Team Description Date Type Department Jaziel Williamson MD [address] [place] [address] Appointment Request 08/07/2021 Telephone Oncology: [facility] [place] [address] Social History Date Tobacco Use Types Packs/Day [...] Recorded COVID-19 Exposure Response 07/29/2021 8:59 AM DIET COUNSELOR In the last month, have you been [...] impairment: No documented as of this encounter Miscellaneous Notes * Telephone Encounter - Cristobal Melton - 08/07/2021 11:02 AM DIET COUNSELOR Contacted patients daughter to let her know about lab, visit, tx on 08/12/21. Jil aranda said her dad is still in the hospital and probably wont get out until Thursday. She will send a My Chart message to Dr. Williamson's office. Canceling lab, visit and tx. COUNSELOR * Telephone Encounter - LinhCristobal - 08/07/2021 11:01 AM DIET COUNSELOR ----- Message from Kate Morrow RN sent at 08/07/2021 8:41 AM DIET COUNSELOR ----- Mike, Can we get patient for Saturday 08/12 a RTC visit with Dr Williamson, Lab appt, And marc sparks, We can double book on his schedule. Thanks COUNSELOR documented in this encounter Plan of Treatment Not on filedocumented as of this encounter Visit Diagnoses Not on filedocumented in this encounter Additional Health Concerns Noted Time Assessment 07/29/2021 10:08 AM DIET COUNSELOR A fall risk assessment has been complet ed for the patient 01/27/2019 11:20 AM CDT PHQ-2 Depression Total Score: 0 documented as of this encounter Care Teams Start Date End Date Financial Counselor Relationship Specialty 01/14/19 Raven Da Silva, PCP - General Internal [facility] [place] [address] documented as of this encounter
--- OUTSIDE RECORDS SUMMARY | 2021-08-07 11:22 | XMS REPORT | Encounter Summary ---
Author Author [facility] Organization [facility] Address Unknown Phone Unavailable Care Team Providers Care Sales Service Supervisor Name Role Phone Raven Da Silva DO PCP Reason for Visit * Reason Onset Date Comments Other 07/19/2021 Fed Ex Medication D anastasia Encounter Details Care Team Description Date Type Department Jaziel Williamson MD [address] [place] [address] Other (Fed Ex Medication Delivery) 07/19/2021 Telephone Oncology: [facility] [place] [address] [place] [address] Social History Date Tobacco Use Types Packs/Day [...] Recorded COVID-19 Exposure Response 07/16/2021 4:48 PM WARPER TENDER In the last month, have you been [...] encounter Miscellaneous Notes * Telephone Encounter - Tara Lynn RN - 07/19/2021 3:14 PM WARPER TENDER Received call from Sunitha with [employer] with the trace department. Since the delivery package has not had a scan since 07/17 they will submit to inve stigation. Sunitha suggested if it is a medical emergency we should send replacement shipment . Sunitha had to submit a ticket at the drop off facility for further investigation, regarding why the package has not been delivered - when it says the delivery da te was 07/18. Reference number: [id number] If we have any further questions: [phone] ER TENDER documented in this encounter Plan of Treatment Not on filedocumented as of this encounter Visit Diagnoses Not on filedocumented in this encounter Additional Health Concerns Noted Time Assessment 07/15/2021 1:27 PM WARPER TENDER A fall risk assessment has been complet ed for the patient 01/27/2019 11:20 AM CDT PHQ-2 Depression Total Score: 0 documented as of this encounter Care Teams Start Date End Date Sales Service Supervisor Relationship Specialty 01/14/19 Raven Da Silva DO PCP - General Internal [address] [place] [address] documented as of this encounter
--- OUTSIDE RECORDS SUMMARY | 2021-08-07 11:22 | XMS REPORT | Encounter Summary ---
Author Author [facility] Organization [facility] Address Unknown Phone Unavailable Care Team Providers Care Product Safety Engineer Name Role Phone Raven Da Silva DO PCP Encounter Details Care Team Description Date Type Department 07/21/2021 Hospital Imaging: Main [facility], Encounter [facility] [address] [place] [address] Social History Date Tobacco Use [...] Recorded COVID-19 Exposure Response 07/16/2021 4:48 PM PROGRAM DIRECTOR In the last month, have you been [...] skin every 24 hours for 6 days. documented as of this encounter Discharge Disposition Code Departure Means Destination Disposition Home Home or Self Care documented in this encounter Plan of Treatment Not on filedocumented as of this encounter Procedures Comments Procedure Name Priority Date/Time Associated Diag nosis CT CHEST EXTERNAL IMAGING Routine 07/21/2021 Diag nosis unknown 12:00 AM PROGRAM DIRECTOR documented in this encounter Results * CT CHEST EXTERNAL IMAGING (07/21/2021 12:00 AM PROGRAM DIRECTOR) Specimen Narrative Scheduling, Silent - 07/24/2021 1:47 PM PROGRAM DIRECTOR This order has been auto finalized and does not contain a result. documented in this encounter Visit Diagnoses Diagnosis Diagnosis unknown Other unknown and unspecified cause of morbidity or mortality documented in this encounter Additional Health Concerns Noted Time Assessment 07/15/2021 1:27 PM PROGRAM DIRECTOR A fall risk assessment has been complet ed for the patient 01/27/2019 11:20 AM CDT PHQ-2 Depression Total Score: 0 documented as of this encounter Care Teams Start Date End Date Product Safety Engineer Relationship Specialty 01/14/19 Raven Da Silva DO PCP - General Internal [address] [place] [address] documented as of this encounter
--- OUTSIDE RECORDS SUMMARY | 2021-08-07 11:22 | XMS REPORT | Encounter Summary ---
Author Author [facility] Organization [facility] Address Unknown Phone Unavailable Care Team Providers Care Pharmaceutical Detailer Name Role Phone Raven Da Silva DO PCP Reason for Visit * Reason Comments Heme/Onc Care PIV & lab Encounter Details Care Team Description Date Type Department Ayo Hernandez MD [address] [place] [id number] 07/29/2021 Hospital Laboratory: [address] [place] [address] Social History Date Tobacco Use Types Packs/Day [...] Recorded COVID-19 Exposure Response 07/29/2021 8:59 AM CIGARETTE MAKING MACHINE OPERATOR In the last month, have you been [...] by mouth into the lungs twice daily. cefdinir (OMNICEF) 300 mg Take 300 mg 0 capsule by mouth every 12 hours. 04/16/2021 cyclobenzaprine Take one 30 tablet 1 (FLEXERIL) 10 mg tablet tablet by mouth at bedtime daily. 07/26/2021 eltrombopag (PROMACTA) 50 Take one 90 tablet 3 mg tablet tablet by mouth daily. Take on an empty stomach, at least 1 hour before or 2 hours after food. Separate from antacids by at least 4 hours. 07/15/2021 08/14/2021 enoxaparin (LOVENOX) 150 Inject 1 mL 30 each 0 mg/mL syringe under the skin daily for 30 days. 12/22/2018 finasteride (PROSCAR) 5 Take 1 tablet 0 mg tablet by mouth daily. furosemide (LASIX) 40 mg Take 40 mg by 0 tablet mouth every morning. 07/11/2021 gabapentin (NEURONTIN) Take one 90 capsule [...] 500 mg tablet by mouth twice daily. metoclopramide HCL Take 5 mg by 0 (REGLAN) 5 mg tablet mouth four times daily. metoprolol tartrate Take 50 mg by 0 (LOPRESSOR) 50 mg tablet mouth twice daily. nitrofurantoin Take 100 mg 0 macrocrystaL by mouth (MACRODANTIN) 100 mg every 6 capsuleIndications: hours. Take genitourinary tract with food. infections Indications: genitourinary tract infections omeprazole DR(+) Take 20 mg by 0 (PRILOSEC) 20 mg capsule mouth daily. 07/08/2021 08/07/2021 ondansetron HCL (ZOFRAN) Take one 120 tablet 0 4 mg tablet tablet by mouth every 6 hours as needed for Nausea or Vomiting for up to [address] Take 40 mg by 0 (PROTONIX) 40 mg tablet mouth daily. 09/25/2018 pioglitazone (ACTOS) 15 Take 1 tablet [...] Take 1 tablet 0 by mouth daily. documented as of this encounter Discharge Disposition Code Departure Means Destination Disposition Home Home or Self Care documented in this encounter Plan of Treatment Not on filedocumented as of this encounter Procedures Comments Procedure Name Priority Date/Time Associated Diag nosis PERIPHERAL SMEAR Routine 07/29/2021 Thrombocytope erin (HCC) 9:08 AM CIGARETTE MAKING MACHINE OPERATOR HC HEPATITIS C KRISTA Routine 07/29/2021 Thrombocyto penia (HCC) 9:08 AM CIGARETTE MAKING MACHINE OPERATOR HC HEPATITIS B CORE Routine 07/29/2021 Thrombocyt openia (HCC) ANTIBODY 9:08 AM CIGARETTE MAKING MACHINE OPERATOR HC HEPATITIS A IGM Routine 07/29/2021 Thrombocyto penia (HCC) 9:08 AM CIGARETTE MAKING MACHINE OPERATOR HC HEPATITIS B-S ANTIGEN Routine 07/29/2021 Throm bocytopenia (HCC) 9:08 AM CIGARETTE MAKING MACHINE OPERATOR HC HEPATITIS B-S ANTIBODY Routine 07/29/2021 Thro mbocytopenia (HCC) 9:08 AM CIGARETTE MAKING MACHINE OPERATOR HC CBC W/ AUTOMATED DIFF Routine 07/29/2021 Malig nant neoplasm of 9:08 AM CIGARETTE MAKING MACHINE OPERATOR upper lobe of right lung (HCC) HC COMPREHENSIVE Routine 07/29/2021 Malignant koffi plasm of METABOLIC PANEL 9:08 AM CIGARETTE MAKING MACHINE OPERATOR upper lobe of right lung (HCC) documented in this encounter Results * PERIPHERAL SMEAR (07/29/2021 9:08 AM CIGARETTE MAKING MACHINE OPERATOR) Peripheral NORMOCYTIC ANEMIA WITH [facility] Smear ANISOCYTOSIS. POLYCHROMASIA PRESENT ABSOLUTE LYMPHOCYTOPENIA. MODERATE THROMBOCYTOPENIA WITH NORMAL PLATELET MORPHOLOGY. Pathologist INTERPRETED BY OBEY Luis AB Liu By the PATH SIGNATURE ABOVE , I attest that I have personally formulated the final interpretation expressed in this report and that the above diagnosis is based upon my examination of the slides and/or other material indicated in this report. Specimen Blood (substance) Performing Organization Address City/[facility]/ZIP Code P ludy Number [facility] [address] [place] [address] * HEPATITIS C ANTIBODY W REFLEX HCV PCR QUANT (07/29/2021 9:08 AM CIGARETTE MAKING MACHINE OPERATOR) Anti HCV NONREACTIVEComment: Antibodies NR-NONREACTIVE [facility] to HCV were not detected. Specimen Blood (substance) Performing Organization Address [facility] P ludy Number [facility] [address] [place] [address] * HEPATITIS A IGM (07/29/2021 9:08 AM CIGARETTE MAKING MACHINE OPERATOR) Hepatitis A IgM NONREACTIVE NR-NONREACTIVE [facility] Specimen Blood (substance) Performing Organization Address City/[facility]/ZIP Code P ludy Number [facility] [address] [place] [address] * HEPATITIS B SURFACE AG (07/29/2021 9:08 AM CIGARETTE MAKING MACHINE OPERATOR) Pathologist [facility] HBsAg NONREACTIVEComment: HBs NR-NONREACTIVE [facility] antigen not detected. Specimen Blood (substance) Performing Organization Address City/[facility]/ZIP Code P ludy Number [facility] [address] [place] [address] * HEPATITIS B SURFACE AB (07/29/2021 9:08 AM CIGARETTE MAKING MACHINE OPERATOR) Pathologist [facility] Anti HBs NEGComment: Individual [facility] considered to be non-immune to HBV infection. Specimen Blood (substance) Performing Organization Address [facility] P ludy Number [facility] [address] [place] [address] * HEPATITIS B CORE AB TOT (IGG+IGM) (07/29/2021 9:08 AM CIGARETTE MAKING MACHINE OPERATOR) Pathologist [facility] Anti HBc Total NONREACTIVEComment: Antibodies NR-NONREACTIVE [facility] to HBV core antigen (anti-HBc) were not detected. Specimen Blood (substance) Performing Organization Address [facility] Code P ludy Number [facility]IN LAB [address] [place] [address] * (ABNORMAL) COMPREHENSIVE METABOLIC PANEL (07/29/2021 9:08 AM CIGARETTE MAKING MACHINE OPERATOR) Pathologist [facility] Sodium 138 137 - 147 MMOL/L [facility] Potassium 3.5 3.5 - 5.1 MMOL/L [facility] Chloride 102 98 - 110 MMOL/L [facility] Glucose 197 (H) 70 - 100 MG/DL [facility] Blood Urea 13 7 - 25 MG/DL [facility] Nitrogen Creatinine 1.02 0.4 - 1.24 MG/DL [facility] Calcium 8.3 (L) 8.5 - 10.6 MG/DL [facility] Total Protein 5.8 (L) 6.0 - 8.0 G/DL [facility] Total Bilirubin 0.9 0.3 - 1.2 MG/DL [facility] Albumin 3.4 (L) 3.5 - 5.0 G/DL [facility] Alk Phosphatase 113 (H) 25 - 110 U/L [facility] AST (SGOT) 18 7 - 40 U/L [facility] CO2 31 (H) 21 - 30 MMOL/L [facility] ALT (SGPT) 10 7 - 56 U/L [facility] Anion Gap 5 3 - 12 [facility] eGFR >60Comment: eGFR calculated >60 mL/min [facility] using the CKD-EPIcr_R equation Specimen Blood (substance) Performing Organization Address City/[facility] P ludy Number [facility] [address] [place] [address] * (ABNORMAL) CBC AND DIFF (07/29/2021 9:08 AM CIGARETTE MAKING MACHINE OPERATOR) White Blood 4.9 4.5 - 11.0 K/UL [facility] Cells RBC 2.42 (L) 4.4 - 5.5 M/UL [facility] Hemoglobin 7.5 (L) 13.5 - 16.5 GM/DL [facility] Hematocrit 22.5 (L) 40 - 50 % [facility] MCV 92.9 80 - 100 FL [facility] MCH 30.8 26 - 34 PG [facility] MCHC 33.2 32.0 - 36.0 G/DL [facility] RDW 20.6 (H) 11 - 15 % [facility] Platelet Count 103 (L) 150 - 400 K/UL [facility] MPV 9.0 7 - 11 FL [facility] Neutrophils 81 (H) 41 - 77 % [facility] Lymphocytes 11 (L) 24 - 44 % [facility] Monocytes 7 4 - 12 % [facility] Eosinophils 0 0 - 5 % [facility] Basophils 1 0 - 2 % [facility] Absolute 4.00 1.8 - 7.0 K/UL [facility] Neutrophil Count Absolute Lymph 0.50 (L) 1.0 - 4.8 K/UL [facility] Count Absolute 0.30 0 - 0.80 K/UL [facility] Monocyte Count Absolute 0.00 0 - 0.45 K/UL [facility] Eosinophil Count Absolute 0.00 0 - 0.20 K/UL [facility] Basophil Count Specimen Blood (substance) Performing Organization Address [facility] P ludy Number [facility] [address] [place] [address] documented in this encounter Visit Diagnoses Diagnosis 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
--- OUTSIDE RECORDS SUMMARY | 2021-08-07 11:22 | XMS REPORT | Encounter Summary ---
Author Author [facility] Organization [facility] Address Unknown Phone Unavailable Care Team Providers Care Butcher Assistant Name Role Phone Raven Da Silva DO PCP Encounter Details Care Team Description Date Type Department Jaziel Williamson MD [address] [place] [address] Malignant neoplasm of upper lobe of righ t lung (HCC) (Primary Dx) 07/31/2021 Orders Only Oncology: [facility] [address] [place] [address] Social History Date Tobacco Use Types Packs/Day [...] Recorded COVID-19 Exposure Response 07/29/2021 8:59 AM MASTER DATA ANALYST In the last month, have you been [...] as of this encounter Plan of Treatment Order Schedule Name Type Priority Associated Diag noses Expected: 08/05/2021 (Approximate), Expi res: 07/31/2022 COMPREHENSIVE METABOLIC Lab Routine Malign ant neoplasm of PANEL upper lobe of right lung (HCC) Expected: 08/05/2021 (Approximate), Expi res: 07/31/2022 CBC AND DIFF Lab Routine Malignant neopl asm of upper lobe of right lung (HCC) documented as of this encounter Visit Diagnoses Diagnosis 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
--- OUTSIDE RECORDS SUMMARY | 2021-08-07 11:22 | XMS REPORT | Encounter Summary ---
Author Author [facility] Organization [facility] Address Unknown Phone Unavailable Care Team Providers Care Soliciting Freight Agent Name Role Phone Raven Da Silva DO PCP Reason for Visit * Reason Comments Follow Up Encounter Details Care Team Description Date Type Department Jaziel Williamson MD [address] [place] [address] Malignant neoplasm of upper lobe of righ t lung (HCC) (Primary Dx) 07/29/2021 Office Visit Oncology: [facility] [address] [place], [place] [phone] Social History Date Tobacco Use Types Packs/Day [...] Recorded COVID-19 Exposure Response 07/29/2021 8:59 AM BRANCH MANAGER In the last month, have you been in contact with No / Unsure someone who was confirmed or suspected to have Coronavirus / COVID-19? documented as of this encounter Last Filed Vital Signs Reading Time Taken Comments Vital Sign 128/50 07/29/2021 10:05 AM BRANCH MANAGER Blood Pressure 67 07/29/2021 10:05 AM BRANCH MANAGER Pulse 36.9 C (98.5 F) 07/29/2021 10:05 AM BRANCH MANAGER Temperature 16 07/29/2021 10:05 AM BRANCH MANAGER Respiratory Rate 100% 07/29/2021 10:05 AM BRANCH MANAGER Oxygen Saturation - - Inhaled Oxygen Concentration 163.3 kg (360 lb) 07/29/2021 10:05 AM BRANCH MANAGER Weight - - Height 42.08 07/25/2021 10:28 AM BRANCH MANAGER Body Mass Index documented in this encounter [...] as of this encounter Progress Notes * Jaziel Williamson MD - 07/29/2021 9:40 AM BRANCH MANAGER [facility] PATIENT'S NAME: Elian Gaffney DATE OF / AGE: 12 1945 / 76 y.o. 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 + fatigue CURRENT TREATMENT: Adjuvant chemotherapy with carboplatin/paclitaxol PAST TREATMENT: - 03/2019: SBRT to initial [id number] IBNSCLC of the RUL - 06/04/21 to 06/12/21: SBRT to [address] ONCOLOGY HISTORY: - Smoking history: smoked ~30 years on average 1-2 packs per day. But quitted 20 years ago. - 03/2019: SBRT to initial [id number] IBNSCLC of the RUL - 03/05/21: CT chest showed "1. Increase in right paratracheal adenopathy, campbell rning for metastatic disease. PET CT and/or biopsy is recommended. 2. Slight inc rease in subpleural nodularity within the right upper lobe at the site of treate d neoplasm, which is nonspecific though likely reflects evolving radiation fibro sis, although recurrent neoplasm is a possibility. This can also be evaluated wi th PET/CT. Otherwise, follow-up CT chest in 3 months is suggested. 3. Cirrhosis and portal hypertension. - 03/13/21: EBUS showed 4R is positive for "Poorly differentiated carcinoma with necrosis.". PD-L1 TPS<1%. - 03/28/21: Brain MRI showed "1. No evidence of intracranial metastatic diseas e. 2. Hypoenhancing 0.6 cm right pituitary nodule, stable since MRI brain 02/24 and favored to reflect an incidental microadenoma. 3. Tiny chronic bilat eral thalamic lacunar type infarcts and tiny inferior right cerebellar infarct. 4. Stable diffuse calvarial thickening and T1 hypointense-sclerotic marrow sig nal abnormality. No suspicious enhancing marrow lesion is identified." - 04/16/21: PET/CT showed "1. Increased FDG uptake within subpleural nodularit y at the site of prior irradiated right upper lobe pulmonary neoplasm, which is indeterminate and may represent post radiation changes or recurrent pulmonary ne oplasm. 2. Increased FDG uptake within a right paratracheal lymph node, suspic ious for metastatic disease." - 05/06/21: CT guided biopsy of previously radiated area with increased FDG upta ke. Path reported as "Fibrosis and reactive changes. Negative for malignancy. De eper sections examined." - 06/04/21 to 06/12/21: SBRT to 4R LN - 07/08/21: C1D1 of adjuvant chemotherapy with carboplatin/paclitaxol. INTERVAL HISTORY: He was found having grade 3 neutropenia and thrombocytopenia. He was recently admitted to local hospital for UTI. He was also found having DVT . He is on reduced dose of lovenox due to thrombocytopenia. He was seen by hemat ologist Dr. Hernandez who thinks his cirrohosis and splenomegaly could have contribu juani to chronic thrombocytopenia which was never worked up before. PAST MEDICAL HISTORY: Medical History: Diagnosis Date COPD (chronic obstructive pulmonary disease) (HCC) Diabetes mellitus (HCC) Hypertension Malignant neoplasm of upper lobe of right lung (HCC) Pulmonary emboli (HCC) PAST SURGICAL HISTORY: Surgical History: Procedure Laterality Date TONSILLECTOMY 1957 DENTAL SURGERY 1958 COLOSTOMY 1999 CATARACT REMOVAL Left 2015 CHOLECYSTECTOMY 2018 BRONCHOSCOPY DIAGNOSTIC WITH CELL WASHING - FLEXIBLE N/A 01/31/2019 Performed by Demarco Gracia MD at [facility] OR BRONCHOSCOPY WITH TRANSBRONCHIAL LUNG BIOPSY - FLEXIBLE - SINGLE LOBE N/A Performed by Demarco Gracia MD at [facility] OR BRONCHOSCOPY WITH TRANSBRONCHIAL NEEDLE ASPIRATION AND BIOPSY TRACHEA/ MAIN STEM/ LOBAR BRONCHUS - FLEXIBLE N/A 01/31/2019 Performed by Demarco Gracia MD at [facility] OR BRONCHOSCOPY WITH ENDOBRONCHIAL ULTRASOUND GUIDED TRANSTRACHEAL/ TRANSBRONCH IAL SAMPLING - 3 OR MORE MEDIASTINAL/ HILAR LYMPH NODE STATIONS/ STRUCTURE - FLE XIBLE N/A 01/31/2019 Performed by Demarco Gracia MD at [facility] OR BRONCHOSCOPY DIAGNOSTIC WITH CELL WASHING - FLEXIBLE N/A 03/13/2021 Performed by Gregory Austin MD at [facility] OR BRONCHOSCOPY WITH TRANSBRONCHIAL LUNG BIOPSY - FLEXIBLE - SINGLE LOBE N/A Performed by Gregory Austin MD at [facility] OR BRONCHOSCOPY WITH TRANSBRONCHIAL NEEDLE ASPIRATION AND BIOPSY TRACHEA/ MAIN STEM/ LOBAR BRONCHUS - FLEXIBLE N/A 03/13/2021 Performed by Gregory Austin MD at [facility] OR BRONCHOSCOPY WITH ENDOBRONCHIAL ULTRASOUND GUIDED TRANSTRACHEAL/ TRANSBRONCH IAL SAMPLING - 3 OR MORE MEDIASTINAL/ HILAR LYMPH NODE STATIONS/ STRUCTURE - FLE XIBLE N/A 03/13/2021 Performed by Gregory Austin MD at [facility] OR ABDOMINAL EXPLORATION SURGERY BACK SURGERY 1982, 1988, 1994, 2003 HEMORRHOIDECTOMY KNEE REPLACEMENT Bilateral FAMILY HISTORY: Family History Problem Relation Age of Onset Hypertension Mother Heart Disease Father Heart Attack Father Asthma Father Hypertension Sister Heart Disease Brother Asthma Brother Stroke Maternal Grandmother Diabetes Paternal Grandmother SOCIAL HISTORY: Social History Socioeconomic History Marital status: Spouse name: Not on file Number of children: Not on file Years of education: Not on file Highest education level: Not on file Occupational History Not on file Tobacco Use Smoking status: Former Smoker Quit date: 03/13/2001 Years since quittin.3 Smokeless tobacco: Never Used Vaping Use Vaping Use: Never used Substance and Sexual Activity Alcohol use: Never Drug use: Never Sexual activity: Not on file Other Topics Concern Not on file Social History Narrative Not on file ALLERGY: Allergies Allergen Reactions Morphine SEE COMMENTS Mouth droopy MEDICATION: Current Outpatient Medications on File Prior to Visit Medication Sig Dispense Refill amLODIPine (NORVASC) 5 mg tablet Take 1 [...] one tablet by mouth at bedtime daily. 30 tablet 1 eltrombopag (PROMACTA) 50 mg tablet Take one tablet by mouth daily. Take on an empty stomach, at least 1 hour before or 2 hours after food. Separate from a ntacids by at least 4 hours. 90 tablet 3 enoxaparin (LOVENOX) 150 mg/mL syringe Inject 1 mL under the skin daily for 30 days. (Patient taking differently: Inject 80 mg under the skin daily.) 30 eac h 0 finasteride (PROSCAR) 5 mg tablet Take 1 tablet by mouth daily. furosemide (LASIX) 40 mg tablet Take 40 mg by mouth every morning. gabapentin (NEURONTIN) 300 mg capsule Take one capsule by mouth every 8 hour s. 90 capsule 1 HYDROcodone/acetaminophen (NORCO) 5/325 mg tablet Take one tablet by mouth e very 8 hours as needed for Pain for up to 30 days 30 tablet 0 insulin lispro (HUMALOG PEN SC) Inject under the skin. LANTUS U-100 INSULIN 100 unit/mL injection Inject 40 Units under the skin tw ice daily. loratadine (CLARITIN) 10 mg tablet Take one tablet by mouth every morning. 9 0 tablet 0 losartan(+) (COZAAR) 100 mg tablet Take 1 tablet by mouth daily. meloxicam (MOBIC) 7.5 mg tablet Take 1 tablet by mouth daily. 0 metFORMIN (GLUCOPHAGE) 500 mg tablet Take 1 [...] or Vomiting for up to 30 days. [address] (PROTONIX) 40 mg tablet Take [...] or Vomiting for up to 30 days. 120 tablet 0 sertraline (ZOLOFT) 100 mg tablet Take 1 tablet by mouth daily. 0 tamsulosin (FLOMAX) 0.4 mg capsule Take 1 capsule by mouth daily. vitamins, B complex tab Take 1 tablet by mouth daily. No current facility-administered medications on file prior to visit. REVIEW OF SYSTEMS: Constitutional: No weight loss. No fever or chills. + fatigue Eyes: No red eyes. No itchy eyes. No double vision. No change on vision acuity Ear, Nose, Mouth & Throat: No hearing loss. No discharge. No sore throat Cardiovascular: No chest pain. No palpitations. No syncope Respiratory: + mild shortness of breath with exertion. + Occasional cough Gastrointestinal: No nausea or vomiting. No difficulty swallowing. No abdominal pain. No diarrhea or constipation. No heartburn, throat pain or difficulty swall owing. Genitourinary: No burning urination. No change in the color of urine Musculoskeletal: No joints pain. + swelling of the upper or lower extremities Integumentary: No rash. Neuro: No headache. No focal weakness or numbness in the upper or lower extremi ties Endocrine: No heat or cold intolerance. No excessive sweating All other systems are negative. PHYSICAL EXAMINATION: Vitals: 07/29/21 1005 BP: 128/50 Pulse: 67 Resp: 16 Temp: 36.9 C (98.5 F) SpO2: 100% ECOG performance status: 2 Constitutional: Alert and oriented x3. Eyes: Pupils are equal bilaterally. No redness. No jaundice. Ear, Nose, Mouth & Throat: Ear canals are patent. No discharge from the nose. Mucous membranes are moist Cardiovascular: Regular rate and rhythm. Respiratory: Good air entry bilaterally. No crackles but + scattered wheezes, b/ l. Gastrointestinal: Soft. Nontender. Nondistended. Good bowel sounds. No hepatospl enomegaly Musculoskeletal & Extremities: No limitation in the joints' range of motion. + lower extremity edema Neuro: CN II-XII intact. Strength in the upper and lower extremities: intact. S ensations in the upper and lower extremities: intact Integumentary: No rash. Heme/Lymph/Immunology: No cervical, supraclavicular, axillary or inguinal lympha denopathy LABS: Reviewed PATHOLOGY: See above. RADIOLOGY: See above ASSESSMENT & PLANS: Initially [id number] IBNSCLC of the RULs/p SBRT in 03/2019, now has N2 dis ease. + TP53, ALLEN and NF1 mutation: - Not a surgical candidate as evaluated in 2019. Patient was s/p SBRT to initial cT2N0 disease of RUL NSCLC in 03/2019. - CT guided biopsy of previously radiated area with FDG activity showed no malig jessica. Therefore patient has isolated N2 (4R) disease. - With current N2 disease with no mets, CCRT followed by durvalumab will be a go od option for curative intent. Alternatively, SBRT followed by 4 cycles of chemo therapy can be considered due to small tumor volume, although this approach is u sed less often. Discussed the pros and cons of each method. Patient is willing t o make trips if treatment requires. After discussing with Rad/Onc Dr. Ascencio, we p lanned for SBRT followed by adjuvant chemotherapy. - He is now s/p SBRT. We discussed the option of adjuvant chemotherapy with Cisp latin and docetaxel. He already has baseline hearing dysfunction and is very con cerned about preservation of his hearing function. So we discussed about alterna te chemotherapy regimen- Carboplatin + paclitaxel. Carboplatin AUC=5 and paclita xel 175 mg/m2 due to thrombocytopenia. He is now s/p cycle 1. - He presented today for mid cycle toxicity check- he reports of Grade 2 fatigue , Grade 1 nausea and vomiting, Grade 1 arthralgia and Grade 1 diarrhea. Labs rev iewed from today, showed chemotherapy induced anemia, neutropenia and thrombocyt openia. Will reduce the dose of Taxol to 150mg/m2 from C2, continue Carbo at AUC 5. - Chronic thrombocytopenia: He was seen by Dr. Hernandez who thinks liver cirrhosis and splenomegaly could have contributed. He will be evaluated by GI. - LLE DVT: on low dose lovenox due to thrombocytopenia. - Fatigue: likely is also exacerbated by anemia. Plan to postpone chemotherapy t angela and arrange a unit of pRBC transfusion this week. - RTC in 1 week with CBC, CMP and possible cycle 2 chemotherapy. - He is scheduled to see hepatology for evaluation of his elevated bilirubin. Above A/P were explained in detail to the patient and family who expressed under standing. All the relevant questions were addressed appropriately. Patient and f amily understand in case of fever (>100.4), worsening chest pain or shortness of breath, or any other new symptoms, our on-call physician can be reached and 911 shall be called in case of emergencies. --- Jaziel Williamson MD, PhD Physical Ther Division of Medical Oncology Department of Internal Medicine [facility] CC: Blake Ascencio MD CH MANAGER documented in this encounter Miscellaneous Notes * Patient Instructions - Tara Lynn RN - 07/29/2021 9:40 AM BRANCH MANAGER Images from the original note were not included. To reschedule appointments please contact: [phone] To speak to a nurse between the hours of 8:00 to 4:00 please call [phone] Dr. Marino's nurse: Luisa Williamson's nurse: Kate/Tara Gilmore's nurse: Ofelia Pak, BIT AND SHANK DEPARTMENT SUPERVISOR: Tara Please ensure your schedule is correct prior to leaving clinic and that all your refill requests have been taken care of. Please allow 5-7 business days to complete any paperwork. Please DO NOT PAGE FOR NARCOTIC REFILLS. Allow 3 business days for narcotic ref ills. If you need refills, please contact your pharmacy first. They will process the refill request. Please try to avoid filling your narcotic prescriptions at [facility], [facility], or [facility]. PLEASE BRING YOUR NAUSEA AND OR PAIN MEDICATION WITH YOU TO YOUR APPOINTMENT. W E DO NOT HAVE ACCESS TO THOSE MEDICATIONS IN CLINIC. Taking Opioid Medicines For your health and safety, its important to take opioids exactly as directed . This helps make sure they work as they should. It also lowers the chances of s casey effects and the risk for taking too high a dose ( overdose). Each opioid med icine is different and has its own instructions for use. Your healthcare provide r will help you understand the ones youre prescribed and how to take them. If you have questions or concerns, be sure to talk about them with your healthcare provider. Using opioids safely Opioids can work very well to ease pain. But taking too much, taking them too lo ng, or not taking them the right way can be harmful. To help reduce the risks to your health, be sure to follow these safety tips: Know if you are supposed to take the medicine on a regular basis or only as n eeded. If your medicine is taken on a regular basis, take it on time and in the righ t dose. If you miss a dose, dont double up the next dose. Use a medicine log, gennaro, or calendar to keep track of when you take your medi cine. This helps you stay on schedule and avoid missing doses or taking extra do ses. When taking liquid doses of opioids, use a measuring spoon or dropper. This w ay you can be sure to get the correct dose. Report any side effects that you have to your healthcare provider right away. Dont cut, crush, or alter your medicine in any way. Dont take someone elses opioids or share yours with others. Dont drive or use dangerous equipment or power tools while taking opioids. Check expiration dates regularly. Throw out any medicines properly. Beware of medicine interactions Certain medicines can be dangerous, even fatal, when used with opioids. Thats why its important tell your healthcare provider and pharmacist about all the medicines youre taking. This includes golk-rxe-tiqgpqm medicines, herbal rem edies, supplements, and even illegal or street drugs. Medicines that may be unsa fe to use with opioids include: Other zjvp-hff-wifndhg pain relievers, such as acetaminophen Other prescription opioids Benzodiazepines (clonazepam, alprazolam, or other like medicines) Muscle relaxants (cyclobenzaprine, carisoprodol, or other like medicines) Hypnotics (sleep aids like zolpidem or other like medicines) Warning: Never combine opioids with alcohol or street drugs. This can be fatal. Symptoms of opioid overdose Opioids affect the part of the brain that controls breathing. An overdose of opi oids can slow breathing down too much and even stop a persons breathing. This can be fatal. Call 911 right away if an overdose is suspected in any person. Three keenan symptoms to look for are: Narrowing of dark circles in the middle of eyes (pinpoint pupils) Breathing that has slowed or stopped Unconsciousness. This is when a person passes out and does not respond. Other symptoms to look for include: Limp body Pale face Clammy skin Purple or blue color lips and fingernails Vomiting Storing opioids safely Opioids need to be stored safely. This helps protect others (including adults an d children) from accidentally taking the medicine. It also helps prevent the the ft and misuse of the medicine. If possible, store the medicine in a locked conta iner or cupboard that others cannot access. Store the medicine in a cool dry melinda ce. Don't use bathrooms, if possible. Always put the medicine back in its secure place after each use. Disposing opioids Unused or opioids must be thrown away properly to prevent harm. Dont save your medicine or give it to others for any reason. Even a single dose of op ioids can lead to if it used by someone other than who the medicine is pre scribed for. To dispose of your medicine safely: Find your [facility] medicine take-back program. This may involve dropping off the medicine at a local police station or pharmacy. Some pharmacies also have mail-back programs. This often involves sending the medicine through the mail using a special medicine disposal envelope. If these options are not available to you, ask your healthcare provider for help . FDA guidelines for disposal The FDA also has guidelines for flushing opioids down the toilet or disposing th em in the trash. You can learn more at the following website: www.fda.gov/consum ers/consumer-updates/cqwhy-sbb-vyo-mutjxqy-qbwuqc-plgfwkufv. Always check with y our local water and waste management company to find out if flushing opioids is allowed in your city or state. Stopping opioid treatment If you have been taking an opioid for more than a few weeks, your body gets used to having it. When you stop taking the medicine, withdrawal symptoms may develop that range from mild to severe. The list of possible withdrawal symptoms is very long. They can include: Restlessness and anxiety Muscle aches Sweating Dilated pupils Watery eyes Runny nose Problems sleeping Nausea or vomiting Abdominal cramping Diarrhea Rapid heartbeat To stop opioid treatment safely and to help manage withdrawal symptoms, you will need help from your healthcare provider. In most cases, the amount of medicine you take will be cut down. You will be weaned off the medicine slowly over sever al weeks. If needed, other medicines and treatments may also be used to help wit h this process. As the opioid medicine clears from your system, your body will r eadjust to not having it. Withdrawal symptoms should then go away. How long this takes can vary for every person. [employer] last reviewed this educational content on 11/14/201919990276-3959 The [employer]. All rights reserved. This information is not intended as a substitute for professional medical care. Always follow your healthcare professional's instructions. CH MANAGER documented in this encounter Plan of Treatment Not on filedocumented as of this encounter Visit Diagnoses Diagnosis Malignant neoplasm of upper lobe of rig ht lung (HCC) - Primary Malignant neoplasm of upper lobe, bronc hus or lung documented in this encounter Additional Health Concerns Noted Time Assessment 07/29/2021 10:08 AM BRANCH MANAGER A fall risk assessment has been complet ed for the patient 01/27/2019 11:20 AM CDT PHQ-2 Depression Total Score: 0 documented as of this encounter Care Teams Start Date End Date Soliciting Freight Agent Relationship Specialty 01/14/19 Raven Da Silva DO PCP - General Internal [address] [place] [address] documented as of this encounter
--- OUTSIDE RECORDS SUMMARY | 2021-08-07 11:22 | XMS REPORT | Encounter Summary ---
Author Author [facility] Organization [facility] Address Unknown Phone Unavailable Care Team Providers Care Respiratory Assistant Name Role Phone Raven Da Silva DO PCP Encounter Details Care Team Description Date Type Department Jaziel Williamson MD [address] [place] [address] Malignant neoplasm of upper lobe of righ t lung (HCC) (Primary Dx) 07/19/2021 Orders Only Oncology: [facility] [address] [place] [address] Social History Date Tobacco Use Types Packs/Day [...] Recorded COVID-19 Exposure Response 07/16/2021 4:48 PM MOTOR BIKE MECHANIC In the last month, have you been [...] filedocumented as of this encounter Results * CBC AND DIFF (07/22/2021) White Blood [facility] RBC [facility] Hemoglobin [facility] Hematocrit [facility] MCV [facility] [...] Organization Address City/State/ZIP Code P ludy Number [address] [address] * COMPREHENSIVE METABOLIC PANEL (07/22/2021) Sodium [facility] Potassium [facility] MED CENTER eGFR Non [facility] [place]ese eGFR [facility] Anion Gap [facility] [place] Specimen Blood - Blood (substance) Narrative Performing Organization Address City/State/ZIP Code P ludy Number [address] [address] documented in this encounter Visit Diagnoses Diagnosis Malignant neoplasm of upper lobe of rig ht lung (HCC) - Primary Malignant neoplasm of upper lobe, bronc hus or lung documented in this encounter Additional Health Concerns Noted Time Assessment 07/15/2021 1:27 PM MOTOR BIKE MECHANIC A fall risk assessment has been complet ed for the patient 01/27/2019 11:20 AM CDT PHQ-2 Depression Total Score: 0 documented as of this encounter Care Teams Start Date End Date Respiratory Assistant Relationship Specialty 01/14/19 Raven Da Silva DO PCP - General Internal [address] [place] [address] documented as of this encounter
--- OUTSIDE RECORDS SUMMARY | 2021-08-07 11:22 | XMS REPORT | Encounter Summary ---
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 [place] [address] Social History Date Tobacco Use Types Packs/Day [...] PM CDT Date Recorded COVID-19 Exposure Response 07/25/2021 9:54 AM MUSIC ORCHESTRATOR In the last month, have you been [...] Associated Diag nosis CBC AND DIFF Routine 07/22/2021 Malignant neopl asm of upper lobe of right lung (HCC) COMPREHENSIVE METABOLIC Routine 07/22/2021 Malign ant neoplasm of PANEL upper lobe of right lung (HCC) documented in this encounter Results * COMPREHENSIVE METABOLIC PANEL (07/22/2021) Sodium [facility] Potassium [facility] Chloride [facility] CO2 [facility] Blood Urea [facility] Creatinine [facility] Glucose [facility] Calcium [facility] Total Protein [facility] Total Bilirubin [facility] Albumin [facility] Alk Phosphatase [facility] AST (SGOT) [facility] ALT (SGPT) [facility] eGFR Non [facility] Cuban eGFR [facility] Cuban [facility] Anion Gap [facility] Specimen Blood - Blood (substance) Narrative Performing Organization Address City/State/ZIP Code P ludy Number [facility] [address] [address] * CBC AND DIFF (07/22/2021) White Blood [...] Code P ludy Number [facility] [address] [place] [id number] documented in this encounter Visit Diagnoses Diagnosis Malignant neoplasm of upper lobe of rig ht lung (HCC) Malignant neoplasm of upper lobe, bronc hus or lung documented in this encounter Additional Health Concerns Noted Time Assessment 07/15/2021 1:27 PM MUSIC ORCHESTRATOR A fall risk assessment has been complet ed for the patient 01/27/2019 11:20 AM CDT PHQ-2 Depression Total Score: 0 documented as of this encounter Care Teams Start Date End Date Chipper Relationship Specialty 01/14/19 Raven Da Silva DO PCP - General Internal [address] [place] [address] documented as of this encounter
--- OUTSIDE RECORDS SUMMARY | 2021-08-07 11:22 | XMS REPORT | Encounter Summary ---
Author Author [facility] Organization [facility] Address Unknown Phone Unavailable Care Team Providers Care Collar Setter Name Role Phone Raven Da Silva PCP Encounter Details Care Team Description Date Type Department 07/29/2021 Travel Social History Date Tobacco Use Types Packs/Day [...] Recorded COVID-19 Exposure Response 07/29/2021 8:59 AM SEISMOLOGY TECHNICAL OFFICER In the last month, have you been [...] Concerns Noted Time Assessment 07/29/2021 10:08 AM SEISMOLOGY TECHNICAL OFFICER A fall risk assessment has been complet ed for the patient 01/27/2019 11:20 AM CDT PHQ-2 Depression Total Score: 0 documented as of this encounter Care Teams Start Date End Date Collar Setter Relationship Specialty 01/14/19 Raven Da Silva DO PCP - General Internal [address] [place] [address] documented as of this encounter
--- OUTSIDE RECORDS SUMMARY | 2021-08-07 11:22 | XMS REPORT | Encounter Summary ---
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) documented in this encounter Results * HEPARIN INDUCED PLT AB (HIT) (07/23/2021) Specimen Blood - Blood (substance) Narrative Performing Organization Address City/State/ZIP Code P ludy Number [address] [address] documented in this encounter Visit Diagnoses Diagnosis Malignant neoplasm of upper lobe of rig ht lung (HCC) Malignant neoplasm of upper lobe, bronc hus or lung documented in this encounter Additional Health Concerns Noted Time Assessment 07/29/2021 10:08 AM POLE CLIMBER A fall risk assessment has been complet ed for the patient 01/27/2019 11:20 AM CDT PHQ-2 Depression Total Score: 0 documented as of this encounter Care Teams Start Date End Date Ornamental Machine Operator Relationship Specialty 01/14/19 Raven Da Silva DO PCP - General Internal [address] [place], [place] [id number] documented as of this encounter
--- OUTSIDE RECORDS SUMMARY | 2021-08-07 11:22 | XMS REPORT | Encounter Summary ---
Author Author [facility] Organization 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) (Primary Dx) 07/22/2021 Orders Only Oncology: [facility] [address] [place] [address] Social History Date Tobacco Use Types Packs/Day [...] Recorded COVID-19 Exposure Response 07/16/2021 4:48 PM ACQUISITION CONSULTANT In the last month, have you been [...] Name Type Priority Associated Diag noses Expected: 07/23/2021 (Approximate), Expi res: 07/22/2022 COMPREHENSIVE METABOLIC Lab Routine Malign ant neoplasm of PANEL upper lobe of right lung (HCC) Expected: 07/23/2021 (Approximate), Expi res: 07/22/2022 CBC AND DIFF Lab Routine Malignant neopl asm of upper lobe of right lung (HCC) documented as of this encounter Results * HEPARIN INDUCED PLT AB (HIT) (07/23/2021) Specimen Blood - Blood (substance) Narrative Performing Organization Address City/State/ZIP Code P ludy Number [address] [address] documented in this encounter Visit Diagnoses Diagnosis Malignant neoplasm of upper lobe of rig ht lung (HCC) - Primary Malignant neoplasm of upper lobe, bronc hus or lung documented in this encounter Additional Health Concerns Noted Time Assessment 07/15/2021 1:27 PM ACQUISITION CONSULTANT A fall risk assessment has been complet ed for the patient 01/27/2019 11:20 AM CDT PHQ-2 Depression Total Score: 0 documented as of this encounter Care Teams Start Date End Date Polisher Dial Relationship Specialty 01/14/19 Raven Da Silva DO PCP - General Internal [address] [place] [address] documented as of this encounter
--- OUTSIDE RECORDS SUMMARY | 2021-08-07 11:22 | XMS REPORT | Encounter Summary ---
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) (Primary Dx) 07/24/2021 Orders Only Oncology: [facility] [address] [place] [address] Social History Date Tobacco Use Types Packs/Day [...] Recorded COVID-19 Exposure Response 07/16/2021 4:48 PM GENERATOR WORKER In the last month, have you been [...] Concerns Noted Time Assessment 07/15/2021 1:27 PM GENERATOR WORKER A fall risk assessment has been complet ed for the patient 01/27/2019 11:20 AM CDT PHQ-2 Depression Total Score: 0 documented as of this encounter Care Teams Start Date End Date Optical Glass Inspector Relationship Specialty 01/14/19 Raven Da Silva DO PCP - General Internal [address] [place] [address] documented as of this encounter
--- OUTSIDE RECORDS SUMMARY | 2021-08-07 11:22 | XMS REPORT | Clinical Summary ---
Author Author [facility] Organization [facility] Address Unknown Phone Unavailable Care Team Providers Care Data Systems Manager Name Role Phone Raven Da Silva PCP Source Comments Some departments are not documenting in the electronic medical record. If you d o not see the information that you expected, contact Release of Information in [facility] Health Information Management department at [phone] for further assistan ce in locating additional records.[facility] Allergies Comments Active Allergy Reactions Severity Noted Date Mouth droopy Morphine SEE COMMENTS Low 01/27/2019 Medications End Date Status Medication Sig Dispensed Refills Start Date Active PROAIR HFA 90 Inhale 2 0 09/28/ mcg/actuation inhaler puffs by 9 mouth into the lungs four times daily. Active amLODIPine (NORVASC) 5 mg Take 1 tablet 0 07/3 / tablet by mouth 9 daily. Active finasteride (PROSCAR) 5 Take 1 tablet 0 /10/ 201 mg tablet by mouth 9 daily. Active BEVESPI AEROSPHERE 9-4.8 Inhale 2 0 09/28 / mcg HFA inhaler puffs by 9 mouth into the lungs twice daily. Active LANTUS U-100 INSULIN 100 Inject 40 0 12/13 /201 unit/mL injection Units under 9 the skin twice daily. Active losartan(+) (COZAAR) 100 Take 1 tablet 0 09/25 /201 mg tablet by mouth 9 daily. Active meloxicam (MOBIC) 7.5 mg Take 1 tablet 0 18 /201 tablet by mouth 9 daily. Active metFORMIN (GLUCOPHAGE) Take 1 tablet 0 04/13/2 01 500 mg tablet by mouth 9 twice daily. Active pioglitazone (ACTOS) 15 Take 1 tablet 0 09/25/ 201 mg tablet by mouth 9 daily. Active sertraline (ZOLOFT) 100 Take 1 tablet 0 09/30/ 201 mg tablet by mouth 9 daily. Active tamsulosin (FLOMAX) 0.4 Take 1 0 201 mg capsule capsule by 9 mouth daily. Active aspirin 81 mg chewable Chew 81 mg by 0 tablet mouth daily. Take with food. Active insulin lispro (HUMALOG Inject under 0 PEN SC) the skin. Active vitamins, B complex tab Take 1 tablet 0 by mouth daily. Active omeprazole DR(+) Take 20 mg by 0 (PRILOSEC) 20 mg capsule mouth daily. Active cyclobenzaprine Take one 30 tablet 1 (FLEXERIL) 10 mg tablet tablet by 1 mouth at bedtime daily. 08/07/2021 Active ondansetron HCL (ZOFRAN) Take one 120 tablet 0 0 4 mg tablet tablet by 2 mouth every 6 hours as needed for Nausea or Vomiting for up to 30 days. Active gabapentin (NEURONTIN) Take one 90 capsule 1 300 mg capsule capsule by 2 mouth every 8 hours. Active loratadine (CLARITIN) 10 Take one 90 tablet 0 0 mg tablet tablet by 2 mouth every morning. 08/14/2021 Active prochlorperazine maleate Take one 120 tablet 0 0 (COMPAZINE) 5 mg tablet tablet by 2 mouth every 6 hours as needed for Nausea or Vomiting for up to 30 days. 08/14/2021 Active HYDROcodone/acetaminophen Take one 30 tablet 0 (NORCO) 5/325 mg tablet tablet by 2 mouth every 8 hours as needed for Pain for up to 30 days 08/14/2021 Active enoxaparin (LOVENOX) 150 Inject 1 mL 30 each 0 0 mg/mL syringe under the 2 skin daily for 30 days. Additional Information Patient taking differently: 80 mg Subcutaneous DAILY, Reported on 07/29/2021 Active cefdinir (OMNICEF) 300 mg Take 300 mg 0 capsule by mouth every 12 hours. Active furosemide (LASIX) 40 mg Take 40 mg by 0 tablet mouth every morning. Active metoprolol tartrate Take 50 mg by 0 (LOPRESSOR) 50 mg tablet mouth twice daily. Active nitrofurantoin Take 100 mg 0 macrocrystaL by mouth (MACRODANTIN) 100 mg every 6 capsuleIndications: hours. Take genitourinary tract with food. infections Indications: genitourinary tract infections Active pantoprazole DR Take 40 mg by 0 (PROTONIX) 40 mg tablet mouth daily. Active metoclopramide HCL Take 5 mg by 0 (REGLAN) 5 mg tablet mouth four times daily. Active eltrombopag (PROMACTA) 50 Take one 90 tablet 3 mg tablet tablet by 2 mouth daily. Take on an empty stomach, at least 1 hour before or 2 hours after food. Separate from antacids by at least 4 hours. 07/11/2021 Discontinued (Duplicate Orde r) Cetirizine 10 mg cap Take 1 0 capsule by mouth daily. 07/20/2021 levoFLOXacin (LEVAQUIN) Take one 5 tablet 0 500 mg tablet tablet by 2 mouth daily for 5 days. 07/22/2021 filgrastim-sndz (ZARXIO) Inject 0.8 mL 4.8 mL 0 480 mcg/0.8 mL inj under the 2 syringe skin every 24 hours for 6 days. Active Problems Problem Noted Date COPD (chronic obstructive pulmonary dis ease) Diabetes mellitus Hypertension Lung mass Malignant neoplasm of upper lobe of rig ht lung Cancer Staging: Clinical: Stage IB (cT2 a, cN0, cM0) - Signed by Blake Ascencio MD on 07/11/2019 Pathologic: Stage Unknown (rpTX, pN2, c M0) - Signed by Armando Cancino MBBS on 06/17/2021 Encounters Care Team Description Date Type Specialty Jaziel Williamson MD Appointment Request 08/07/2021 Telephone Oncology Jaziel Williamson MD Malignant neoplasm of upper lobe of righ t lung (HCC) (Primary Dx) 07/31/2021 Orders Only Oncology Ayo Hernandez MD 07/31/2021 Documentation Oncology Clarissa Shah MA Malignant neoplasm of upper lobe of righ t lung (HCC) 07/31/2021 Orders Only Oncology Jaziel Williamson MD Malignant neoplasm of upper lobe of righ t lung (HCC) (Primary Dx) 07/29/2021 Office Visit Oncology Ayo Hernandez MD 07/29/2021 Hospital Lab Encounter 07/29/2021 Travel Gracie Vicente 07/26/2021 Specialty Pharmacy Pharmacy/Medica tion Management Ayo Hernandez MD 07/26/2021 Orders Only Oncology Ayo Hernandez MD Thrombocytopenia (HCC) (Primary Dx) 07/25/2021 Office Visit Oncology 07/25/2021 Travel Jaziel Williamson MD Malignant neoplasm of upper lobe of righ t lung (HCC) (Primary Dx) 07/24/2021 Orders Only Oncology Jaziel Williamson MD Malignant neoplasm of upper lobe of righ t lung (HCC) (Primary Dx) 07/22/2021 Orders Only Oncology Clarissa Shah MA Malignant neoplasm of upper lobe of righ t lung (HCC) 07/22/2021 Orders Only Oncology 07/21/2021 Hospital Radiology Encounter Jaziel Williamson MD Malignant neoplasm of upper lobe of righ t lung (HCC) (Primary Dx) 07/19/2021 Orders Only Oncology Jaziel Williamson MD Other (Fed Ex Medication Delivery) 07/19/2021 Telephone Oncology Clarissa Shah MA Malignant neoplasm of upper lobe of righ t lung (HCC) 07/19/2021 Orders Only Oncology 07/18/2021 Hospital Radiology Encounter Jaziel Williamson MD Other (lab appointments) 07/17/2021 Telephone Oncology Jaziel Williamson MD 07/16/2021 Hospital Oncology Encounter 07/16/2021 Travel Jaziel Williamson MD 07/15/2021 Hospital Radiology Encounter Raven Da Silva DO 07/15/2021 Hospital Oncology Encounter Jaziel Williamson MD Malignant neoplasm of upper lobe of righ t lung (HCC) (Primary Dx); Pain and swelling of lower leg, left 07/15/2021 Office Visit Oncology Jaziel Williamson MD Malignant neoplasm of upper lobe of righ t lung (HCC) 07/15/2021 Nurse Only Oncology Jaziel Williamson MD Critical Result 07/15/2021 Telephone Oncology 07/15/2021 Travel Garry Cohen, PHARMD 07/11/2021 Orders Only Oncology Ayo Hernandez MD Navigation Assessment 07/10/2021 Telephone Oncology Colt Richards MD Zhang, Jun, MD 07/08/2021 Hospital Oncology Encounter Jaziel Williamson MD Malignant neoplasm of upper lobe of righ t lung (HCC) (Primary Dx) 07/08/2021 Office Visit Oncology Jaziel Williamson MD Malignant neoplasm of upper lobe of righ t lung (HCC) (Primary Dx) 07/08/2021 Nurse Only Oncology Jaziel Williamson MD Appointment 07/08/2021 Telephone Oncology 07/08/2021 Travel Jaziel Williamson MD Malignant neoplasm of upper lobe of righ t lung (HCC) (Primary Dx) 07/03/2021 Orders Only Oncology Jaziel Williamson MD Malignant neoplasm of upper lobe of righ t lung (HCC) (Primary Dx); Bilateral hearing loss, unspecified hearing loss type 06/17/2021 Office Visit Oncology Erlin Deleon, PHARMD 06/17/2021 Clinical Oncology Support 06/17/2021 Travel Blake Ascencio MD Malignant neoplasm of upper lobe of righ t lung (HCC) (Primary Dx) 2021 Office Visit Radiation Therapy Interface, Aria Treatment Data 2021 Orders Only Radiation Therapy 2021 Travel Unknown, Unknown, MD Referral 06/10/2021 Telephone Transplant Surgery Jaziel Williamson MD Malignant neoplasm of upper lobe of righ t lung (HCC) (Primary Dx) 06/10/2021 Orders Only Oncology Jaziel Williamson MD Malignant neoplasm of upper lobe of righ t lung (HCC) (Primary Dx) 06/10/2021 Orders Only Oncology Clarissa Shah MA Malignant neoplasm of upper lobe of righ t lung (HCC) 06/06/2021 Orders Only Oncology Interface, Aria Treatment Data 06/04/2021 Orders Only Radiation Therapy Jaziel Williamson MD Malignant neoplasm of upper lobe, right bronchus or lung (HCC) 05/28/2021 Hospital Lab Encounter Jaziel Williamson MD Malignant neoplasm of upper lobe, right bronchus or lung (HCC) 05/24/2021 Hospital Lab Encounter Clarissa Shah MA Malignant neoplasm of upper lobe of righ t lung (HCC) 05/24/2021 Orders Only Oncology Blake Ascencio MD Malignant neoplasm of upper lobe of righ t lung (HCC) (Primary Dx) 05/23/2021 Office Visit Radiation Therapy Blake Ascencio MD 05/23/2021 Nurse Only Radiation Therapy 05/23/2021 Travel Jaziel Williamson MD Other (abdominal ultrasound ) 05/22/2021 Telephone Oncology Jaziel Williamson MD Malignant neoplasm of upper lobe of righ t lung (HCC) (Primary Dx) 05/21/2021 Orders Only Oncology Jaziel Williamson MD Other (lab appt ) 05/15/2021 Telephone Oncology Jaziel Williamson MD Malignant neoplasm of upper lobe of righ t lung (HCC) (Primary Dx) 05/15/2021 Orders Only Oncology Blake Ascencio MD Malignant neoplasm of upper lobe of righ t lung (HCC) (Primary Dx) 05/14/2021 Orders Only Radiation Therapy Jaziel Williamson MD Malignant neoplasm of upper lobe of righ t lung (HCC) (Primary Dx) 05/13/2021 Office Visit Oncology 05/13/2021 Travel from Last 3 Months Surgical History Surgery Date Site/Laterality Comments DENTAL SURGERY 06/15/1958 - 06/14/1959 TONSILLECTOMY 06/15/1957 - 06/14/1958 BACK SURGERY 1982, 1988, 1994, 2003 KNEE REPLACEMENT Bilateral HEMORRHOIDECTOMY CATARACT REMOVAL 06/15/2014 - Left 06/14/2015 COLOSTOMY 06/15/1999 - 06/14/2000 CHOLECYSTECTOMY 06/15/2018 - 06/14/2019 ABDOMINAL EXPLORATION SURGERY BRONCHOSCOPY 01/31/2019 Bronchus/N/A BRONCHOSCOPY DI AGNOSTIC WITH CELL WASHING - FLEXIBLE performed by Demarco Gracia MD [facility] OR[facility]Periop BRONCHOSCOPY 01/31/2019 Bronchus/N/A BRONCHOSCOPY WI TH TRANSBRONCHIAL LUNG BIOPSY - FLEXIBLE - SINGLE LOBE performed by Demarco Stewart MD at [facility] OR/Periop BRONCHOSCOPY 01/31/2019 Bronchus/N/A BRONCHOSCOPY WI TH TRANSBRONCHIAL NEEDLE ASPIRATION AND BIOPSY TRACHEA/ MAIN STEM/ LOBAR BR ONCHUS - FLEXIBLE performed by Demarco Gracia MD at [facility] OR/Periop BRONCHOSCOPY 01/31/2019 Bronchus/N/A BRONCHOSCOPY WI TH ENDOBRONCHIAL ULTRASOUND GUIDED TRANSTRACHEAL/ TRANSBRONCHIAL SAMPLING - 3 OR MORE MEDIASTINAL/ HILAR LYMPH NODE STATIONS/ STRUCTURE - FLEXIBLE performed by Demarco Gracia M D at [facility] OR/Periop BRONCHOSCOPY 03/13/2021 Bronchus/N/A BRONCHOSCOPY DI AGNOSTIC WITH CELL WASHING - FLEXIBLE performed by Gregory Austin MD at [facility] OR BRONCHOSCOPY 03/13/2021 Bronchus/N/A BRONCHOSCOPY WI TH TRANSBRONCHIAL LUNG BIOPSY - FLEXIBLE - SINGLE LOBE performed by Gregory Coppola MD at [facility] OR BRONCHOSCOPY 03/13/2021 Bronchus/N/A BRONCHOSCOPY WI TH TRANSBRONCHIAL NEEDLE ASPIRATION AND BIOPSY TRACHEA/ MAIN STEM/ LOBAR BR ONCHUS - FLEXIBLE performed by Gregory Austin MD at [facility] OR BRONCHOSCOPY 03/13/2021 Bronchus/N/A BRONCHOSCOPY WI TH ENDOBRONCHIAL ULTRASOUND GUIDED TRANSTRACHEAL/ TRANSBRONCHIAL SAMPLING - 3 OR MORE MEDIASTINAL/ HILAR LYMPH NODE STATIONS/ STRUCTURE - FLEXIBLE performed by Gregory Austin MD at [facility] OR Medical History Medical History Date Comments COPD (chronic obstructive pulmonary disease) (HCC) Diabetes mellitus (HCC) Hypertension Malignant neoplasm of upper lobe of right lung (HCC) Pulmonary emboli (HCC) Family History Medical History Relation Name Comments Asthma Brother Heart Disease Brother Asthma Father Heart Attack Father Heart Disease Father Stroke Maternal Grandmother Hypertension Mother Diabetes Paternal Grandmother Hypertension Sister Relation Name Status Comments Brother Father Maternal Grandmother Mother Paternal Grandmother Sister Social History Date Tobacco Use Types Packs/Day [...] Recorded COVID-19 Exposure Response 07/29/2021 8:59 AM REHAB TECHNICIAN In the last month, have you been in contact with No / Unsure someone who was confirmed or suspected to have Coronavirus / COVID-19? Obstetrics History Last Filed Vital Signs Reading Time Taken Comments Vital Sign 128/50 07/29/2021 10:05 AM REHAB TECHNICIAN Blood Pressure 67 07/29/2021 10:05 AM REHAB TECHNICIAN Pulse 36.9 C (98.5 F) 07/29/2021 10:05 AM REHAB TECHNICIAN Temperature 16 07/29/2021 10:05 AM REHAB TECHNICIAN Respiratory Rate 100% 07/29/2021 10:05 AM REHAB TECHNICIAN Oxygen Saturation - - Inhaled Oxygen Concentration 163.3 kg (360 lb) 07/29/2021 10:05 AM REHAB TECHNICIAN Weight 197 cm (6' 5.56") 07/25/2021 10:28 AM REHAB TECHNICIAN Height 42.08 07/25/2021 10:28 AM REHAB TECHNICIAN Body Mass Index Plan of Treatment Health Maintenance Due Date Last Done Comments HBA1C 1945 MEDICARE ANNUAL WELLNESS 1945 VISIT DILATED EYE EXAM 1964 DTAP/TDAP VACCINES (1 - 1964 Tdap) FOOT EXAM 1964 PHYSICAL (COMPREHENSIVE) 1964 EXAM COLORECTAL CANCER 1996 SCREENING SHINGLES RECOMBINANT 1996 VACCINE (1 of 2) ABDOMINAL AORTIC ANEURYSM 2011 SCREENING PNEUMONIA (PPSV23) 2011 VACCINE (1 of 1 - PPSV23) INFLUENZA VACCINE 01/13/2021 03/20/2020, 04/05/2019 COVID-19 VACCINE (4 - 11/18/2021 06/20/2021, Booster for Moderna 09/19/2020, series) 08/22/2020 HEPATITIS C SCREENING Completed 07/29/2021 Implants Device Identifier Shelf Expiration Date Model / Serial / L ot Implanted Type Area 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 [employer] Other [id number] 03/14/2024 [id number] / [id number] / [id number] System [employer] Tract Sealant - Lung Surg ical [id number] Specialtie Implanted: Qty: 1 on 05/06/2021 by Syed Williamson MD at [facility] Procedures Comments Procedure Name Priority Date/Time Associated Diag nosis PERIPHERAL SMEAR Routine 07/29/2021 Thrombocytope erin (HCC) 9:08 AM REHAB TECHNICIAN HC HEPATITIS C KRISTA Routine 07/29/2021 Thrombocyto penia (HCC) 9:08 AM REHAB TECHNICIAN HC HEPATITIS A IGM Routine 07/29/2021 Thrombocyto penia (HCC) 9:08 AM REHAB TECHNICIAN HC HEPATITIS B-S ANTIGEN Routine 07/29/2021 Throm bocytopenia (HCC) 9:08 AM REHAB TECHNICIAN HC HEPATITIS B-S ANTIBODY Routine 07/29/2021 Thro mbocytopenia (HCC) 9:08 AM REHAB TECHNICIAN HC HEPATITIS B CORE Routine 07/29/2021 Thrombocyt openia (HCC) ANTIBODY 9:08 AM REHAB TECHNICIAN HC COMPREHENSIVE Routine 07/29/2021 Malignant koffi plasm of METABOLIC PANEL 9:08 AM REHAB TECHNICIAN upper lobe of right lung (HCC) HC CBC W/ AUTOMATED DIFF Routine 07/29/2021 Malig nant neoplasm of 9:08 AM REHAB TECHNICIAN upper lobe of right lung (HCC) HEPARIN INDUCED PLT AB Routine 07/23/2021 Maligna nt neoplasm of (HIT) upper lobe of right lung (HCC) COMPREHENSIVE METABOLIC Routine 07/22/2021 Malign ant neoplasm of PANEL upper lobe of right lung (HCC) CBC AND DIFF Routine 07/22/2021 Malignant neopl asm of upper lobe of right lung (HCC) CT CHEST EXTERNAL IMAGING Routine 07/21/2021 Diag nosis unknown 12:00 AM REHAB TECHNICIAN COMPREHENSIVE METABOLIC Routine 07/18/2021 Malign ant neoplasm of PANEL upper lobe of right lung (HCC) CBC AND DIFF Routine 07/18/2021 Malignant neopl asm of upper lobe of right lung (HCC) GENERAL RAD CHEST Routine 07/18/2021 Diagnosis un known EXTERNAL IMAGING 12:00 AM REHAB TECHNICIAN US DOPPLER VENOUS LEFT Routine 07/15/2021 Maligna nt neoplasm of 6:24 PM REHAB TECHNICIAN upper lobe of right lung (HCC) Pain and swelling of lower leg, left HC COMPREHENSIVE Routine 07/15/2021 Malignant koffi plasm of METABOLIC PANEL 12:46 PM REHAB TECHNICIAN upper lobe of right lung (HCC) HC CBC W/ AUTOMATED DIFF Routine 07/15/2021 Malig nant neoplasm of 12:46 PM REHAB TECHNICIAN upper lobe of right lung (HCC) HC COMPREHENSIVE Routine 07/08/2021 Malignant koffi plasm of METABOLIC PANEL 8:30 AM REHAB TECHNICIAN upper lobe of right lung (HCC) HC CBC W/ AUTOMATED DIFF Routine 07/08/2021 Malig nant neoplasm of 8:30 AM REHAB TECHNICIAN upper lobe of right lung (HCC) HC COMPREHENSIVE Routine 06/17/2021 Malignant koffi plasm of METABOLIC PANEL 12:36 PM REHAB TECHNICIAN upper lobe of right lung (HCC) HC CBC W/ AUTOMATED DIFF Routine 06/17/2021 Malig nant neoplasm of 12:36 PM REHAB TECHNICIAN upper lobe of right lung (HCC) RAD ONC TREATMENT Routine 2021 INFORMATION 1:18 PM REHAB TECHNICIAN RAD ONC TREATMENT Routine 06/10/2021 INFORMATION 1:50 PM REHAB TECHNICIAN RAD ONC TREATMENT Routine 06/06/2021 INFORMATION 1:17 PM REHAB TECHNICIAN RAD ONC TREATMENT Routine 06/04/2021 INFORMATION 2:08 PM REHAB TECHNICIAN US ABDOMEN COMPLETE Routine 05/22/2021 Malignant neoplasm of upper lobe of right lung (HCC) COMPREHENSIVE METABOLIC Routine 05/20/2021 Malign ant neoplasm of PANEL upper lobe of right lung (HCC) HC RNA SOLID TUMOR FUSION Routine 05/13/2021 Sharlene gnant neoplasm of PANEL 12:15 PM REHAB TECHNICIAN upper lobe of right lung (HCC) HC HUMAN COMP CANCER GENE Routine 05/13/2021 Sharlene gnant neoplasm of PANEL NGS NON BLOOD 12:15 PM REHAB TECHNICIAN upper lobe of ri ght lung (HCC) NOTES 05/13/2021 12:15 PM REHAB TECHNICIAN HC COMPREHENSIVE Routine 05/13/2021 Malignant koffi plasm of METABOLIC PANEL 9:30 AM REHAB TECHNICIAN upper lobe of right lung (HCC) HC CBC W/ AUTOMATED DIFF Routine 05/13/2021 Malig nant neoplasm of 9:30 AM REHAB TECHNICIAN upper lobe of right lung (HCC) from Last 3 Months Results * PERIPHERAL SMEAR (07/29/2021 9:08 AM REHAB TECHNICIAN) Peripheral NORMOCYTIC ANEMIA WITH [facility] Smear ANISOCYTOSIS. POLYCHROMASIA PRESENT ABSOLUTE LYMPHOCYTOPENIA. MODERATE THROMBOCYTOPENIA WITH NORMAL PLATELET MORPHOLOGY. Pathologist INTERPRETED BY [facility] AB Signature By the PATH SIGNATURE ABOVE , I attest that I have personally formulated the final interpretation expressed in this report and that the above diagnosis is based upon my examination of the slides and/or other material indicated in this report. Specimen Blood (substance) Performing Organization Address [facility] Code P ludy Number [facility] [address] [place] [address] * HEPATITIS C ANTIBODY W REFLEX HCV PCR QUANT (07/29/2021 9:08 AM REHAB TECHNICIAN) Anti HCV NONREACTIVEComment: Antibodies NR-NONREACTIVE [facility] to HCV were not detected. Specimen Blood (substance) Performing Organization Address [facility] Code P ludy Number MAIN LAB [address] [place] [address] * HEPATITIS B CORE AB TOT (IGG+IGM) (07/29/2021 9:08 AM REHAB TECHNICIAN) Anti HBc Total NONREACTIVEComment: Antibodies NR-NONREACTIVE [facility] to HBV core antigen (anti-HBc) were not detected. Specimen Blood (substance) Performing Organization Address [facility]/ZIP Code P uldy Number [facility] [address] [place] [address] * HEPATITIS A IGM (07/29/2021 9:08 AM REHAB TECHNICIAN) Hepatitis A IgM NONREACTIVE NR-NONREACTIVE [facility]IN [facility] Specimen Blood (substance) Performing Organization Address [facility] Code P ludy Number [facility] [address] [place] [address] * HEPATITIS B SURFACE AG (07/29/2021 9:08 AM REHAB TECHNICIAN) HBsAg NONREACTIVEComment: HBs NR-NONREACTIVE [facility] antigen not detected. Specimen Blood (substance) Performing Organization Address [facility] Code P ludy Number [facility] [address] [place] [address] * HEPATITIS B SURFACE AB (07/29/2021 9:08 AM REHAB TECHNICIAN) Anti HBs NEGComment: [facility] to be non-immune to HBV infection. Specimen Blood (substance) Performing Organization Address City/[facility]/ZIP Code P ludy Number [facility] [address] [place] [address] * (ABNORMAL) CBC AND DIFF (07/29/2021 9:08 AM REHAB TECHNICIAN) Only the most recent of 7 results within the time period is included. White Blood 4.9 4.5 - 11.0 K/UL [...] Count Specimen Blood (substance) Performing Organization Address City/State/ZIP Code P ludy Number [facility] [address] [place] [address] * (ABNORMAL) COMPREHENSIVE METABOLIC PANEL (07/29/2021 9:08 AM REHAB TECHNICIAN) Only the most recent of 8 results within the time period is included. Pathologist [facility] Sodium 138 137 - 147 MMOL/L [facility] Potassium 3.5 3.5 - 5.1 MMOL/L [facility] Chloride 102 98 - 110 MMOL/L [facility] Glucose 197 (H) 70 - 100 [...] equation Specimen Blood (substance) Performing Organization Address City/State/ZIP Code P ludy Number [facility] [address] [place] [address] * HEPARIN INDUCED PLT AB (HIT) (07/23/2021) Specimen Blood - Blood (substance) Narrative Performing Organization Address City/State/ZIP Code P ludy Number [address] [address] * CT CHEST EXTERNAL IMAGING (07/21/2021 12:00 AM REHAB TECHNICIAN) Specimen Narrative Scheduling, Silent - 07/24/2021 1:47 PM REHAB TECHNICIAN This order has been auto finalized and does not contain a result. * GENERAL RAD CHEST EXTERNAL IMAGING (07/18/2021 12:00 AM REHAB TECHNICIAN) Specimen Narrative Scheduling, Silent - 07/24/2021 1:47 PM REHAB TECHNICIAN This order has been auto finalized and does not contain a result. * US DOPPLER VENOUS LEFT (07/15/2021 6:24 PM REHAB TECHNICIAN) Modality Anatomical Region Laterality Ultrasound Vascular Left Specimen Impressions [facility] RESULTS - 07/15/2021 7:45 PM REHAB TECHNICIAN Predominantly nonocclusive thrombus throughout the left popliteal vein. Dr. Dow discussed these findings with Dr. Cancino by telephone at 6:23 PM 07/15/2021 By my electronic signature, I attest that I have personally reviewed the images for this examination and formulated the interpretations and opinions expressed in this report Finalized by Pablo Zavala MD, PhD on 07/15/2021 7:45 PM. Dictated by Shannan Dow MD on 07/15/2021 6:20 PM. Narrative [facility] RESULTS - 07/15/2021 7:45 PM REHAB TECHNICIAN LEFT LOWER EXTREMITY VENOUS DOPPLER ULTRASOUND CLINICAL INDICATION: Evaluate for left lower extremity DVT, lung cancer, pain and swelling of left leg TECHNIQUE: Multiple grayscale, color Doppler and spectral Doppler ultrasound images were obtained of the left lower extremity for evaluation of the peripheral veins. COMPARISON: None FINDINGS: The left common femoral, upper saphenous, deep femoral, and femoral veins are patent and fully compressible without focal narrowing. Predominantly nonocclusive thrombus throughout the left popliteal vein. Visualized portions of the posterior tibial and peroneal veins are patent. No soft tissue mass or fluid collection is identified within visualized portions of the leg. Procedure Note Pablo Zavala MD - 07/15/2021 LEFT LOWER EXTREMITY VENOUS DOPPLER ULTRASOUND CLINICAL INDICATION: Evaluate for left lower extremity DVT, lung cancer, pain and swelling of left leg TECHNIQUE: Multiple grayscale, color Doppler and spectral Doppler ultrasound images were obtained of the left lower extremity for evaluation of the peripheral veins. COMPARISON: None FINDINGS: The left common femoral, upper saphenous, deep femoral, and femoral veins are patent and fully compressible without focal narrowing. Predominantly nonocclusive thrombus throughout the left popliteal vein. Visualized portions of the posterior tibial and peroneal veins are patent. No soft tissue mass or fluid collection is identified within visualized portions of the leg. IMPRESSION Predominantly nonocclusive thrombus throughout the left popliteal vein. Dr. Dow discussed these findings with Dr. Cancino by telephone at 6:23 PM 07/15/2021 By my electronic signature, I attest that I have personally reviewed the images for this examination and formulated the interpretations and opinions expressed in this report Finalized by Pablo Zavala MD, PhD on 07/15/2021 7:45 PM. Dictated by Shannan Dow MD on 07/15/2021 6:20 PM. Performing Organization Address City/State/ZIP Code P ludy Number [facility] RESULTS * RAD ONC TREATMENT INFORMATION (2021 1:18 PM REHAB TECHNICIAN) Course ID C2-Mediastinum KU RAD ONC TREATMENT First Treatment 06-04-2021 02:03PM KU RAD ONC Date TREATMENT Last Treatment 2021 01:18PM KU RAD ONC Date TREATMENT Treatment 8 KU RAD ONC Elapsed Days TREATMENT Reference Point Rt Mediastinum KU RAD ONC ID TREATMENT Dosage Given To 40 K[facility] RAD ONC Date TREATMENT Session Dosage 10 K[facility] RAD ONC Given TREATMENT Plan ID RMediastiSBRT KU RAD ONC TREATMENT Fractions 4 KU RAD ONC Treated to Date TREATMENT Total Fractions 5 KU RAD ONC on Plan TREATMENT Prescribed Dose 10 KU RAD ONC per Fraction TREATMENT Prescription 5,000 KU RAD ONC Dose TREATMENT Specimen Performing Organization Address City/State/ZIP Code P ludy Number KU RAD ONC TREATMENT * RAD ONC TREATMENT INFORMATION (06/10/2021 1:50 PM REHAB TECHNICIAN) Course ID C2-Mediastinum KU RAD ONC TREATMENT First Treatment 06-04-2021 02:03PM KU RAD ONC Date TREATMENT Last Treatment 06-10-2021 01:50PM KU RAD ONC Date TREATMENT Treatment 6 KU RAD ONC Elapsed Days TREATMENT Reference Point Rt Mediastinum KU RAD ONC ID TREATMENT Dosage Given To 30 KU RAD ONC Date TREATMENT Session Dosage 10 KU RAD ONC Given TREATMENT Plan ID RMediastiSBRT KU RAD ONC TREATMENT Fractions 3 KU RAD ONC Treated to Date TREATMENT Total Fractions 5 KU RAD ONC on Plan TREATMENT Prescribed Dose 10 KU RAD ONC per Fraction TREATMENT Prescription 5,000 KU RAD ONC Dose TREATMENT Specimen Performing Organization Address City/State/ZIP Code P ludy Number KU RAD ONC TREATMENT * RAD ONC TREATMENT INFORMATION (06/06/2021 1:17 PM REHAB TECHNICIAN) Course ID C2-Mediastinum KU RAD ONC TREATMENT First Treatment 06-04-2021 02:03PM KU RAD ONC Date TREATMENT Last Treatment 06-06-2021 01:17PM KU RAD ONC Date TREATMENT Treatment 2 KU RAD ONC Elapsed Days TREATMENT Reference Point Rt Mediastinum KU RAD ONC ID TREATMENT Dosage Given To 20 KU RAD ONC Date TREATMENT Session Dosage 10 KU RAD ONC Given TREATMENT Plan ID RMediastiSBRT KU RAD ONC TREATMENT Fractions 2 KU RAD ONC Treated to Date TREATMENT Total Fractions 5 KU RAD ONC on Plan TREATMENT Prescribed Dose 10 KU RAD ONC per Fraction TREATMENT Prescription 5,000 KU RAD ONC Dose TREATMENT Specimen Performing Organization Address City/State/ZIP Code P ludy Number KU RAD ONC TREATMENT * RAD ONC TREATMENT INFORMATION (06/04/2021 2:08 PM REHAB TECHNICIAN) Course ID C2-Mediastinum KU RAD ONC TREATMENT First Treatment 06-04-2021 02:03PM KU RAD ONC Date TREATMENT Last Treatment 06-04-2021 02:08PM KU RAD ONC Date TREATMENT Treatment 0 KU RAD ONC Elapsed Days TREATMENT Reference Point Rt Mediastinum KU RAD ONC ID TREATMENT Dosage Given To 10 KU RAD ONC Date TREATMENT Session Dosage 10 KU RAD ONC Given TREATMENT Plan ID RMediastiSBRT KU RAD ONC TREATMENT Fractions 1 KU RAD ONC Treated to Date TREATMENT Total Fractions 5 KU RAD ONC on Plan TREATMENT Prescribed Dose 10 KU RAD ONC per Fraction TREATMENT Prescription 5,000 KU RAD ONC Dose TREATMENT Specimen Performing Organization Address City/State/ZIP Code P ludy Number KU RAD ONC TREATMENT * US ABDOMEN COMPLETE (05/22/2021) Modality Anatomical Region Laterality Other Abdomen Narrative Performing Organization Address City/State/ZIP Code P ludy Number [address] [id number] * RNA SOLID TUMOR FUSION PANEL (05/13/2021 12:15 PM REHAB TECHNICIAN) RNA Solid Tumor Report Available in Epic [facility] Fusion Panel Specimen Tissue Narrative Performing Organization Address City/State/ZIP Code P ludy Number REFERENCE LAB REFERENCE LAB See results for address. * HUMAN COMP CANCER GENE PANEL NGS NON BLOOD (05/13/2021 12:15 PM REHAB TECHNICIAN) Human Report Available in Epic [facility] Comprehensive Cancer Gene Panel Non Blood Specimen Tissue Narrative Performing Organization Address City/State/ZIP Code P ludy Number REFERENCE LAB REFERENCE LAB See results for address. * NOTES (05/13/2021 12:15 PM REHAB TECHNICIAN) Specimen Notes [id number] sent to [facility] for REFERENCE L AB testing 05 14 21 Specimen Performing Organization Address City/State/ZIP Code P ludy Number REFERENCE LAB REFERENCE LAB See results for address. from Last 3 Months Insurance Type Payer Benefit Subscriber ID Effective Phone Address Plan / Dates Group Medicare [facility] MEDICARE [facility] [id number] 2020-P [phone] MEDICARE resent [id number] [place] [address] [facility]/HO [id number] 07/22/2021-P [address] [facility]/SNF /NURSING [place], [place] HOME [phone] Advance Directives Patient Boy'S Adviser Explanation Type Date Recorded Advance Directive/DPOA Care Teams Start Date End Date Data Systems Manager Relationship Specialty 01/14/19 Raven Da Silva, PCP - General Internal [address] [place] [address]
--- OUTSIDE RECORDS SUMMARY | 2021-08-07 11:22 | XMS REPORT | Encounter Summary ---
Author Author [facility] Organization [facility] Address Unknown Phone Unavailable Care Team Providers Care Supervisor [employer] Name Role Phone Raven Da Silva DO PCP Encounter Details Care Team Description Date Type Department Ayo Hernandez MD [address] [place] [address] 07/31/2021 Documentation Hematology: Main [facility] [address] [place] [address] Social History Date Tobacco Use [...] Recorded COVID-19 Exposure Response 07/29/2021 8:59 AM CASH APPLICATIONS REPRESENTATIVE In the last month, have you been [...] as of this encounter Progress Notes * Natividad Lou, RN - 07/31/2021 10:09 AM CASH APPLICATIONS REPRESENTATIVE Faxed appeal for Promacta to [facility] at [phone] with Confirmation. APPLICATIONS REPRESENTATIVE documented in this encounter Plan of Treatment Not on filedocumented as of this encounter Visit Diagnoses Not on filedocumented in this encounter Additional Health Concerns Noted Time Assessment 07/29/2021 10:08 AM CASH APPLICATIONS REPRESENTATIVE A fall risk assessment has been complet ed for the patient 01/27/2019 11:20 AM CDT PHQ-2 Depression Total Score: 0 documented as of this encounter Care Teams Start Date End Date Supervisor [employer] Relationship Specialty 01/14/19 Raven Da Silva DO PCP - General Internal [address] [place] [address] documented as of this encounter
--- OUTSIDE RECORDS SUMMARY | 2021-08-07 11:22 | XMS REPORT | Encounter Summary ---
Author Author [facility] Organization [facility] Address Unknown Phone Unavailable Care Team Providers Care Computer Network Support Specialist Name Role Phone Raven Da Silva DO PCP Encounter Details Care Team Description Date Type Department Ayo Hernandez MD [address] [place] [address] 07/26/2021 Orders Only Hematology: Main [facility], [facility] [address] [place] [address] Social History Date Tobacco Use [...] Recorded COVID-19 Exposure Response 07/25/2021 9:54 AM WAX POT TENDER In the last month, have you [...] impairment: No documented as of this encounter Ordered Prescriptions Start Date End Date Prescription Sig Dispensed Refills 07/26/2021 eltrombopag (PROMACTA) 50 Take one 90 tablet 3 mg tablet tablet by mouth daily. Take on an empty stomach, at least 1 hour before or 2 hours after food. Separate from antacids by at least 4 hours. documented in this encounter Progress Notes * Cristian Loredo, PHARMD - 07/26/2021 9:25 AM WAX POT TENDER Oral Chemotherapy Counseling Eltrombopag (Promacta) Elian Gaffney was provided medication education regarding his new oral chemoth erapy. I reviewed the role of specialty pharmacy, including access to medication ass istance specialists if needed. How to take the medication Elian Gaffney was educated on eltrombopag (Promacta) for thrombocytopenia; t he indication for treatment, dose, route, frequency and duration of therapy were reviewed. Directions: 50 mg (one 50 mg tablet) by mouth on an empty stomach (1 hour befor e or 2 hours after a meal) daily. Patient was educated to swallow tablets whole and not to crush, chew or open tab lets. Do not administer concurrently with antacids, foods high in calcium, or mi nerals (eg, iron, calcium, aluminum, magnesium, selenium, zinc); administer eltr ombopag (Promacta) at least 2 hours before and 4 hours after these products. D o not administer more than one dose within 24 hours. How to Store Medication Elian Gaffney was educated to store eltrombopag (Promacta) at room temperatu re in a safe place away from humidity, pets, and children. I instructed the pat ient that eltrombopag (Promacta) should be stored in the original bottle. I r ecommended if family members would be handling the medication, they should use g loves. Additionally, I recommended cleaning any surfaces touched by eltrombopag (Promacta) with bleach, if possible. Adherence The patient's ability to self-administer medication was assessed. Patient was educated on the importance of adherence and that the consequences of non-adherence could include disease progression. The patient's ability to be ad herent with drug therapies was discussed and the patient was provided options fo r tools/resources that promote adherence to therapy. For Elian Gaffney alarms, calendars, pillboxes, and technology (reminder apps) were recommended and/or pr ovided. How to Manage Missed Doses I instructed the patient that if a dose is missed, he should take it as soon as he remembers on the same day and to return to normally scheduled doses the day; however, not to take extra capsules to make up for the missed dose. I f tablets are vomited up, I recommended not taking additional doses that day. I nstead, resume the medication at the next scheduled dose. Contraindications / Safety Precautions / Adverse Effects: Contraindications to therapy, safety precautions, and common adverse effects (li alesia below) were discussed with the patient. I explained that most patients do NOT experience all these side effects and that this list was not inclusive. I i nstructed patient to report any adverse effects to their doctor, pharmacist or lam mckeon. Fatigue (likely disease related) Headache (likely disease related) Dizziness (likely disease related) Hepatotoxicity Limb pain, weakness, arthralgia, myalgia, muscle spasm Dyspnea (likely disease related) Vaccination Status Education Appropriate recommended vaccinations were reviewed and discussed with the darlene kelly. The patient was also reminded about the importance of receiving an annual inf luenza vaccine as indicated. REMS Program No REMS is required for this medication. Drug-Drug Interactions A medication history and reconciliation was performed (including prescription me dications, supplements, over the counter medications, and herbal products). The medication list was updated and the patients current medication list is inclu ded below. I stressed the importance of maintaining an accurate medication list and informing their medical team prior to taking any new medications. Home Medications Medication Sig amLODIPine (NORVASC) 5 mg tablet Take 1 tablet by mouth daily. aspirin 81 mg chewable tablet Chew 81 mg by mouth daily. Take with food. BEVESPI AEROSPHERE 9-4.8 mcg HFA inhaler Inhale 2 puffs by mouth into the lungs twice daily. cefdinir (OMNICEF) 300 mg capsule Take 300 mg by mouth every 12 hours. cyclobenzaprine (FLEXERIL) 10 mg tablet Take one tablet by mouth at bedtime jena y. eltrombopag (PROMACTA) 50 mg tablet Take one tablet by mouth daily. Take on an e mpty stomach, at least 1 hour before or 2 hours after food. Separate from antac ids by at least 4 hours. enoxaparin (LOVENOX) 150 mg/mL syringe Inject 1 mL under the skin daily for 30 d ays. finasteride (PROSCAR) 5 mg tablet Take 1 tablet by mouth daily. furosemide (LASIX) 40 mg tablet Take 40 mg by mouth every morning. gabapentin (NEURONTIN) 300 mg capsule Take one capsule by mouth every 8 hours. HYDROcodone/acetaminophen (NORCO) 5/325 mg tablet Take one tablet by mouth every 8 hours as needed for Pain for up to 30 days insulin lispro (HUMALOG PEN SC) Inject under the skin. LANTUS U-100 INSULIN 100 unit/mL injection Inject 40 Units under the skin twice daily. loratadine (CLARITIN) 10 mg tablet Take [...] tablet Take 50 mg by mouth twice daily. nitrofurantoin macrocrystaL (MACRODANTIN) 100 mg capsule Take 100 mg by mouth ev mary 6 hours. Take with food. Indications: genitourinary tract infections omeprazole DR(+) (PRILOSEC) 20 mg capsule Take 20 mg by mouth daily. ondansetron HCL (ZOFRAN) 4 mg tablet Take one tablet by mouth every 6 hours as n eeded for Nausea or Vomiting for up to [address] (PROTONIX) 40 mg tablet Take 40 mg by mouth daily. pioglitazone (ACTOS) 15 mg tablet Take 1 tablet by mouth daily. PROAIR HFA 90 mcg/actuation inhaler Inhale 2 puffs by mouth into the lungs four times daily. prochlorperazine maleate (COMPAZINE) 5 mg tablet Take one tablet by mouth every 6 hours as needed for Nausea or Vomiting for up to 30 days. sertraline (ZOLOFT) 100 mg tablet Take 1 tablet by mouth daily. tamsulosin (FLOMAX) 0.4 mg capsule Take 1 capsule by mouth daily. vitamins, B complex tab Take 1 tablet by mouth daily. Drug-drug and drug-food interactions with the new therapy were assessed and revi ewed with the patient. No significant drug-drug interactions were identified. Reproductive Concerns Reproductive concerns were reviewed with the patient. As patient is a male, educ ation was provided regarding adequate contraception for female partners of repro ductive potential and contacting his physician immediately should his partner be come . What to Do With Any Unused or Medications Appropriate safe handling and disposal procedures were reviewed with the patient . lEian Gaffney was instructed to return any unused or oral chemothera py medication to a designated disposal bin at one of the [facility] or to utilize a community drug take back program. Instructed not to flush d own the toilet or to crush and dispose of medication in the trash. Monitoring Monitoring and follow-up plan was discussed with patient. Elian Kaylie Gulshan was in structed to contact the oral chemotherapy pharmacist at [phone] if they hav e any questions or concerns regarding their medication therapy. Informed the pat ient that we would send the prescription to a specialty pharmacy and that the [facility] would be calling the patient to schedule a shipment. Emphasized if their phone calls were not answered, the specialty pharmacy would not ship the medica tion. This medication is considered low risk per our internal oral chemotherapy risk c ategorization and the patient will be contacted for education, toxicity check at 2 weeks, and reassessment annually, if applicable (low risk monitoring). Patient was given the opportunity to ask questions. Patient verbalized understan ding, agreed with the plan and had no questions or concerns regarding therapy. Cristian Loredo PHARMD Clinical Pharmacist 07/26/21 POT TENDER * Cristian Loredo PHARMD - 07/26/2021 9:25 AM WAX POT TENDER Initial Assessment: Oral Chemotherapy Eltrombopag (Promacta) Elian Gaffney is a 76 y.o. male with a diagnosis of thrombocytopenia. Indication/Regimen Eltrombopag (Promacta) is being used appropriately for treatment of thrombocyt openia. The dosing regimen of 50 mg (one 50 mg tablet) by mouth on an empty stomach (1 h our before or 2 hours after a meal) once daily is appropriate for Elian Hammond h. It is planned to continue until unacceptable toxicity or lack of efficacy. Therapeutic Goals May be referenced in the [place] treatment plan properties Medical History Medical History: Diagnosis Date COPD (chronic obstructive pulmonary disease) (HCC) Diabetes mellitus (HCC) Hypertension Malignant neoplasm of upper lobe of right lung (HCC) Pulmonary emboli (HCC) Patient Oncology History Relevant tumor markers: N/A Active treatment regimens: Active Treatment Plans for Elian Gaffney ONCOLOGY 1: OP LUNG CARBOPLATIN + PACLITAXEL (WITH OR WITHOUT XRT) ([id number]) Current day: Day 1, Cycle 2 (Planned for 07/29/2021) Following planned day: Day 2, Cycle 2 (Planned for 07/30/2021) SUPPORTIVE CARE: OP SUPPORT FILGRASTIM Current day: Day 3, Cycle 1 (Planned for 07/17/2021) Following planned day: Day 4, Cycle 1 (Planned for 07/18/2021) Height, Weight, BSA Wt Readings from Last 1 Encounters: 07/25/21 (!) 161 kg (355 lb) Estimated body surface area is 2.97 meters squared as calculated from the follow ing: Height as of 07/25/21: 197 cm (6' 5.56"). Weight as of 07/25/21: 161 kg (355 lb). Allergies Allergies Allergen Reactions Morphine SEE COMMENTS Mouth droopy Baseline Labs: CBC w/Diff Lab Results Component Value Date/Time WBC 0.6 (LL) 07/15/2021 12:46 PM RBC 2.96 (L) 07/15/2021 12:46 PM HGB 8.9 (L) 07/15/2021 12:46 PM HCT 26.9 (L) 07/15/2021 12:46 PM MCV 90.9 07/15/2021 12:46 PM MCH 30.0 07/15/2021 12:46 PM MCHC 33.0 07/15/2021 12:46 PM RDW 18.4 (H) 07/15/2021 12:46 PM PLTCT 58 (L) 07/15/2021 12:46 PM MPV 9.0 07/15/2021 12:46 PM Lab Results Component Value Date/Time NEUT 46 07/15/2021 12:46 PM ANC 0.30 (L) 07/15/2021 12:46 PM LYMA 46 (H) 07/15/2021 12:46 PM ALC 0.30 (L) 07/15/2021 12:46 PM TERESA 5 07/15/2021 12:46 PM AMC 0.00 07/15/2021 12:46 PM EOSA 2 07/15/2021 12:46 PM AEC 0.00 07/15/2021 12:46 PM BASA 1 07/15/2021 12:46 PM ABC 0.00 07/15/2021 12:46 PM Comprehensive Metabolic Profile Lab Results Component Value Date/Time NA 134 (L) 07/15/2021 12:46 PM K 4.4 07/15/2021 12:46 PM CL 103 07/15/2021 12:46 PM CO2 26 07/15/2021 12:46 PM GAP 5 07/15/2021 12:46 PM BUN 30 (H) 07/15/2021 12:46 PM CR 0.97 07/15/2021 12:46 PM GLU 218 (H) 07/15/2021 12:46 PM Lab Results Component Value Date/Time CA 8.6 07/15/2021 12:46 PM ALBUMIN 3.6 07/15/2021 12:46 PM TOTPROT 6.1 07/15/2021 12:46 PM ALKPHOS 112 (H) 07/15/2021 12:46 PM AST 28 07/15/2021 12:46 PM ALT 21 07/15/2021 12:46 PM TOTBILI 1.1 07/15/2021 12:46 PM GFR >60 05/13/2021 09:30 AM GFRAA >60 05/13/2021 09:30 AM Serum creatinine: 0.97 mg/dL 07/15/21 1246 Estimated creatinine clearance: 110.4 mL/min Status The patient's status was assessed. As patient is a male, education felipa l be provided regarding adequate contraception for female partners of reproducti ve potential and contacting his physician immediately should his partner become . Medication Administration Assessment The patient's ability to self-administer their medication will be assessed anthony card patient education Medication Reconciliation Home Medications Medication Sig amLODIPine (NORVASC) 5 mg tablet Take 1 tablet by mouth daily. aspirin 81 mg chewable tablet Chew 81 mg by mouth daily. Take with food. BEVESPI AEROSPHERE 9-4.8 mcg HFA inhaler Inhale 2 puffs by mouth into the lungs twice daily. cefdinir (OMNICEF) 300 mg capsule Take 300 mg by mouth every 12 hours. cyclobenzaprine (FLEXERIL) 10 mg tablet Take one tablet by mouth at bedtime jena y. eltrombopag (PROMACTA) 50 mg tablet Take one tablet by mouth daily. Take on an e mpty stomach, at least 1 hour before or 2 hours after food. Separate from antac ids by at least 4 hours. enoxaparin (LOVENOX) 150 mg/mL syringe Inject 1 mL under the skin daily for 30 d ays. finasteride (PROSCAR) 5 mg tablet Take 1 tablet by mouth daily. furosemide (LASIX) 40 mg tablet Take 40 mg by mouth every morning. gabapentin (NEURONTIN) 300 mg capsule Take one capsule by mouth every 8 hours. HYDROcodone/acetaminophen (NORCO) 5/325 mg tablet Take one tablet by mouth every 8 hours as needed for Pain for up to 30 days insulin lispro (HUMALOG PEN SC) Inject under the skin. LANTUS U-100 INSULIN 100 unit/mL injection Inject 40 Units under the skin twice daily. loratadine (CLARITIN) 10 mg tablet Take [...] tablet Take 50 mg by mouth twice daily. nitrofurantoin macrocrystaL (MACRODANTIN) 100 mg capsule Take 100 mg by mouth ev mary 6 hours. Take with food. Indications: genitourinary tract infections omeprazole DR(+) (PRILOSEC) 20 mg capsule Take 20 mg by mouth daily. ondansetron HCL (ZOFRAN) 4 mg tablet Take one tablet by mouth every 6 hours as n eeded for Nausea or Vomiting for up to [address] (PROTONIX) 40 mg tablet Take 40 mg by mouth daily. pioglitazone (ACTOS) 15 mg tablet Take 1 tablet by mouth daily. PROAIR HFA 90 mcg/actuation inhaler Inhale 2 puffs by mouth into the lungs four times daily. prochlorperazine maleate (COMPAZINE) 5 mg tablet Take one tablet by mouth every 6 hours as needed for Nausea or Vomiting for up to 30 days. sertraline (ZOLOFT) 100 mg tablet Take 1 tablet by mouth daily. tamsulosin (FLOMAX) 0.4 mg capsule Take 1 capsule by mouth daily. vitamins, B complex tab Take 1 tablet by mouth daily. Medication reconciliation is based on the patient's most recent medication list in the electronic medical record (EMR) including herbal products and OTC medicat ions. The patient's medication list will be updated during patient education, af ter speaking with the patient and prior to dispensing the medication. Drug Interaction Assessment Drug-Drug Interactions (DDIs) DDIs were evaluated and No significant drug-drug interactions were identifie d. Drug-Food Interactions Drug-food interactions were evaluated and The following food-drug interactio ns were identified: eltrombopag should always be taken on an empty stomach. Or with low calcium meal Administer on an empty stomach, 1 hour before or 2 hours after a meal. Swallow tablets whole; do not crush and mix with food or liquids. Do not administer concurrently with antacids, foods high in calcium, or mine rals (eg, iron, calcium, aluminum, magnesium, selenium, zinc); administer eltrom bopag at least 2 hours before and 4 hours after antacids or foods high in calciu m. Follow-up Plan Will discuss with Patient and determine if alternative therapy is appropriat e. Contraindications There are no contraindications to therapy identified. Vaccination Status Assessment Immunization History Administered Date(s) Administered COVID-19 (MODERNA), mRNA vacc, 100 mcg/0.5 mL (PF) 08/22/2020, 09/19/2020 Vaccine history and recommended vaccinations were reviewed and will be recommend ed as appropriate. The patient will be reminded about the importance of receivin g an annual influenza vaccine as indicated. Safety Precautions The following safety precautions to the use of eltrombopag were reviewed: Cataract formation: caution in patients with advanced age, long-term glucocor ticoid use. Hepatotoxicity: dose adjust for pre-existing hepatotoxicity Thomboembolism with excessive increase in platelets [place] ethnicity Safety precautions for this medication have been reviewed. No concerns have been identified. Risk Evaluation and Mitigation Strategy (REMS) Assessment No REMS is required for this medication. Initial therapy assessment has been completed and the patient will be contacted to complete education on their regimen. Cristian Loredo, MAYA Clinical Pharmacist 07/26/21 POT TENDER documented in this encounter Plan of Treatment Not on filedocumented as of this encounter Visit Diagnoses Not on filedocumented in this encounter Additional Health Concerns Noted Time Assessment 07/25/2021 10:28 AM WAX POT TENDER A fall risk assessment has been complet ed for the patient 01/27/2019 11:20 AM CDT PHQ-2 Depression Total Score: 0 documented as of this encounter Care Teams Start Date End Date Computer Network Support Specialist Relationship Specialty 01/14/19 Raven Da Silva DO PCP - General Internal [address] [place] [address] documented as of this encounter
--- OUTSIDE RECORDS SUMMARY | 2021-08-07 11:22 | XMS REPORT | Encounter Summary ---
Author Author [facility] Organization [facility] Address Unknown Phone Unavailable Care Team Providers Care Procurement Accountant Name Role Phone Raven Da Silva DO PCP Encounter Details Care Team Description Date Type Department Gracie Vicente 07/26/2021 Specialty [facility] tion Management [address] [place] [phone] Social History Date Tobacco Use Types Packs/Day [...] Recorded COVID-19 Exposure Response 07/25/2021 9:54 AM FILTERATION OPERATOR In the last month, have you [...] as of this encounter Progress Notes * Gracie Vicente - 07/26/2021 5:39 PM FILTERATION OPERATOR The Prior Authorization for promacta has been submitted for Elian Gaffney via Cover My Meds. Will continue to follow. Gracie Vicente Pharmacy Patient Advocate [id number] ERATION OPERATOR documented in this encounter Plan of Treatment Not on filedocumented as of this encounter Visit Diagnoses Not on filedocumented in this encounter Additional Health Concerns Noted Time Assessment 07/25/2021 10:28 AM FILTERATION OPERATOR A fall risk assessment has been complet ed for the patient 01/27/2019 11:20 AM CDT PHQ-2 Depression Total Score: 0 documented as of this encounter Care Teams Start Date End Date Procurement Accountant Relationship Specialty 01/14/19 Raven Da Silva DO PCP - General Internal [facility] [place] [address] documented as of this encounter
--- OUTSIDE RECORDS SUMMARY | 2021-08-07 11:22 | XMS REPORT | Encounter Summary ---
Author Author [facility] Organization [facility] Address Unknown Phone Unavailable Care Team Providers Care Solder Cream Maker Name Role Phone Raven Da Silva PCP Encounter Details Care Team Description Date Type Department 07/25/2021 Travel Social History Date Tobacco Use Types [...] Recorded COVID-19 Exposure Response 07/25/2021 9:54 AM LEAD MATERIAL HANDLER In the last month, have you been [...] Concerns Noted Time Assessment 07/25/2021 10:28 AM LEAD MATERIAL HANDLER A fall risk assessment has been complet ed for the patient 01/27/2019 11:20 AM CDT PHQ-2 Depression Total Score: 0 documented as of this encounter Care Teams Start Date End Date Solder Cream Maker Relationship Specialty 01/14/19 Raven Da Silva DO PCP - General Internal [address] [place] [address] documented as of this encounter
--- OUTSIDE RECORDS SUMMARY | 2021-08-07 11:23 | XMS REPORT | Encounter Summary ---
Author Author [facility] Organization [facility] Address Unknown Phone Unavailable Care Team Providers Care License Distributor Name Role Phone Raven Da Silva DO PCP Reason for Visit * Reason Onset Date Comments Other 07/17/2021 lab appointments Encounter Details Care Team Description Date Type Department Jaziel Williamson MD [address], [place] [phone] Other (lab appointments) 07/17/2021 Telephone Oncology: [facility] [address] [phone] Social History Date Tobacco Use Types Packs/Day [...] Recorded COVID-19 Exposure Response 07/16/2021 4:48 PM DIGITAL DESIGN ENGINEER In the last month, have you been [...] Telephone Encounter - Tara Lynn RN - 07/17/2021 10:17 AM DIGITAL DESIGN ENGINEER Called patient's daughter Jeannette regarding updated information on PEG injection a nd lab work. Patient will still need lab work drawn tomorrow 07/18 at local hospital in [facility]. Lab work has been faxed to [phone]. We need this lab for shree newman's platelet count to see if we need to adjust lovenox therapy or not. Also told daughter that patient will need lab work Saturday 07/22 at to check ANC level after receiving PEG injections. Orders have been entered to have patient complete walk in labs. RN explained to have daughter call or message us when they have received PEG inj ections from [facility]. Should be delivered today late, or early tomorrow. RN asked if daughter had any questions regarding giving injections. She stated t valy did not. RN stated to begin taking antibiotics today and complete antibiotic through the full course. RN advised to call if any questions or concerns came up about patient status. Adolfo gandhi v/u. TAL DESIGN ENGINEER documented in this encounter Plan of Treatment Not on filedocumented as of this encounter Visit Diagnoses Not on filedocumented in this encounter Additional Health Concerns Noted Time Assessment 07/15/2021 1:27 PM DIGITAL DESIGN ENGINEER A fall risk assessment has been complet ed for the patient 01/27/2019 11:20 AM CDT PHQ-2 Depression Total Score: 0 documented as of this encounter Care Teams Start Date End Date License Distributor Relationship Specialty 01/14/19 Raven Da Silva DO PCP - General Internal [address] [place] [address] documented as of this encounter
--- OUTSIDE RECORDS SUMMARY | 2021-08-07 11:23 | XMS REPORT | Encounter Summary ---
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 [address], [address] [place] [address] Referral ID Status Reason Start Date Expiration Visits Vi sits Date Requested Authorized [id number] Closed 07/15/2021 06/14/2022 99 99 Encounter Details Care Team Description Date Type Department Jaziel Williamson MD [address] [place] [address] 07/16/2021 Hospital Oncology: [facility] [address] [place]. [address], [address] [place] [phone] Social History Date Tobacco Use Types Packs/Day [...] Recorded COVID-19 Exposure Response 07/16/2021 4:48 PM BOATBUILDER WOOD In the last month, have you been in contact with No / Unsure someone who was confirmed or suspected to have Coronavirus / COVID-19? documented as of this encounter Last Filed Vital Signs Reading Time Taken Comments Vital Sign 123/53 07/16/2021 4:55 PM BOATBUILDER WOOD Blood Pressure 84 07/16/2021 4:55 PM BOATBUILDER WOOD Pulse 36.7 C (98 F) 07/16/2021 4:55 PM BOATBUILDER WOOD Temperature 16 07/16/2021 4:55 PM BOATBUILDER WOOD Respiratory Rate 95% 07/16/2021 4:55 PM BOATBUILDER WOOD Oxygen Saturation - - Inhaled Oxygen Concentration 159.2 kg (351 lb) 07/16/2021 4:55 PM BOATBUILDER WOOD Weight 197 cm (6' 5.56") 07/16/2021 4:55 PM BOATBUILDER WOOD Height 41.02 07/16/2021 4:55 PM BOATBUILDER WOOD Body Mass Index documented in this encounter [...] or Self Care documented in this encounter Progress Notes * Priscila Valladares RN - 07/16/2021 5:17 PM BOATBUILDER WOOD RN not to draw CBC today (draw ) per Jazmin Morrow, [employer] [facility]. Patient received Zarxio injection and tolerated without difficulty. No pertinent changes since last assessment. Patient and patient's daughter were given injection teaching, e ducation, and demonstration and they voiced understanding. Patient discharged vi a wheelchair with all belongings. Clinic will call patient tomorrow morning to s if he needs to drive in or if medication has arrived for him to do home injec tions. BUILDER WOOD documented in this encounter Miscellaneous Notes * Patient Instructions - Priscila Valladares RN - 07/16/2021 4:45 PM BOATBUILDER WOOD Images from the original note were not included. Giving a Subcutaneous (Sub-Q) Injection, 1 Medicine Your healthcare provider has prescribed a medicine that you can give yourself us ing a needle. This is call a subcutaneous injection, or sub-Q injection. This me ans putting the medicine into the fatty areas just under your skin. The needle u sed for a sub-Q injection is very small. It doesn't cause much pain. Many medici sylvia are given in this way. Your healthcare provider has prescribed the amount and times you need to give yo urself the medicine. The name of my medicine is: Zarxio Amount for each injection: 480 mcg Home care Follow these guidelines when caring for yourself at home. Get your work area ready Put any pets in another room. Wash your hands for 1 to 2 minutes with soap and water. Liquid soap is best . Clean your area with soap and water. Dry it with a paper towel. Gather these items Your medicine. Keep in mind that some medicine vials must be taken out of the refrigerator at a specific amount of time before you inject them. Read the label and follow the instructions. A sterile disposable syringe. Dont reuse your syringes. Alcohol wipes or swabs Special container to throw out the used syringe (sharps container). You can b uy a sharps container at a pharmacy or medical supply store. You can also use an empty laundry detergent bottle, or any other puncture-proof container and lid. Then wash your hands again. Choose your injection site Injection sites. You may findthat the easiest and safest places to inject medicine are these ar eas: Back ofyour upper arms Upper thighs Belly (abdomen), but avoid the belly button and waist area. If you are very t hin, dont useyour belly for your injection site, unless your healthcare pro vider tells you to. Keep these in mind: Avoid areas that are red, swollen, or bruised. Don't inject in the same site 2 times in a row.Choose a site that is at [address] 2 inches away from your last injection site. Get the medicine ready Check the medicine in the vial. Look for changes in color, cloudiness, or someth ing floating in it. Don't use the medicine if you think it looks different. Ask your healthcare provider or pharmacist how insulin should look in the via l, if using insulin. Some insulin is normally cloudy. Call your provider or pharmacist if youare not sure the medicine is safe to use. Follow these steps: Remove the cap from the vial. Clean the rubber stopper on top of the vialwi th an alcohol wipe. Remove the syringe from its package. Dont use a syringe from a previously opened package or a package with holes in it. Take the cap offthe needle. Pull back the plunger, drawing air into the syr anila. The amount of air should be the same as the amount of medicine your health care provider has prescribed for you. Push the needle into the rubber stopper of the vial. Once the needle is throu gh the stopper, push the plunger on the syringe so that the air goes into the vi al. Keep the needle in the stopper and turn the vial upside down. Keep the tip of the needle in the liquid and pull back on the plunger. The me dicine will flow into the syringe. Fill the syringe to your prescribed dose amount. ? If you get too much, push some medicine back into the vial with the plunger. ? If you didnt get enough, keep pulling on the plunger. Check for air bubbles in the syringe. ? If you see air bubbles in the syringe, gently tap the syringe while the needle is still in the stopper. The air bubbles will move to the top of the syringe. ? Push the plunger slightly, and the air will go back into the vial. Check to make sure the syringe contains the prescribed amount of medicine. Th en pull the needle out of the vial. Give the injection Use an alcohol swab to clean the injection site. Make sure the cleaned area i s about 2 inches across. While the injection site dries, double-check that you have the right amount o f medicine in your syringe. Place your thumb and forefinger on either side of the clean injection site. P inch up about 2 inches of skin. Hold the syringe like a pencil. Insert the needle straight intoyour pinched -up skin. Or insert the needle at a slight angle, if your provider showed you th at. Insert the needle quickly. It will hurt less. Insert the needle completely into the skin. This will help you inject the med icine correctly. Release your skin, holding the syringe in place. If your healthcare provider has told you to pull back on the plunger to check for blood, then do so. ? If you see blood in the syringe, dont inject. This means that the needle sanchez s entered a blood vessel. Remove the needle, select a new injection site, and re peat the steps above for getting the site ready. ? If there is no blood in the syringe, continue with the injection. To inject th e medicine, slowly push the plunger all the way down. If you are injecting insulin, don't pull back on the plunger to check for blo od. Inject the insulin by slowly pushing the plunger all the way down. After the injection Remove the needle fromyour skin. Hold a gauze or cotton ball on the injecti on site for a few seconds. Don't rub the injection site. If you see blood or clear fluid, press on the injection site with the gauze o r cotton ball for 5 to 8 minutes. Don't rub while pressing. Apply a bandage if y ou wish. Don't recap the needle. Put the needle and syringe in the sharps container. Make sure the needle poin ts down. Never put your fingers into the container. When the container is full, take it back to your healthcare facility for proper disposal. Record the site, date, and time of each injection. Follow-up care Follow up with your healthcare provider, or as advised. When to seek medical advice Call your healthcare provider right away if any of these occur: You are unable to give your injection Bleeding at the injection site for more than 10 minutes You injected medicine in the wrong area You injected too much medicine Rash at the injection site Redness, warmth, swelling, or drainage at the injection site Feverof 100.4F (38.0C) or higher, or as advised by your healthcare prov ider Signs of allergic reaction. These include trouble breathing, hives, or rash. [employer] last reviewed this educational content on 08/14/201919992229-7686 [employer]. All rights reserved. This information is not intended as a substitute for professional medical care. Always follow your healthcare professional's instructions. BUILDER WOOD documented in this encounter Plan of Treatment Not on filedocumented as of this encounter Visit Diagnoses Diagnosis Malignant neoplasm of upper lobe of rig ht lung (HCC) - Primary Malignant neoplasm of upper lobe, bronc hus or lung * Addendum Note - Indiana Babb - 07/16/2021 4:45 PM BOATBUILDER WOOD Encounter addended by: Indiana Babb on: 07/18/2021 9:46 AM Actions taken: Charge Capture section accepted BUILDER WOOD documented in this encounter Administered Medications Action Date Dose Rate Site Medication Order MAR Action 07/16/2021 5:07 PM BOATBUILDER WOOD 480 mcg Abdomina l Tissue filgrastim-sndz (ZARXIO) inj syringe 480 Given mcg 480 mcg, Subcutaneous, ONCE, 1 dose, On Thu07/16/21 at 1708, Round dose to nearest vial size. Give until ANC is greater than 1500/microliter. May use last resulted CBC if within 2 days. documented in this encounter Orders First Ordered Date Medications Ordered That Might Not Have Count Last Ordered Date Been Administered filgrastim-sndz (ZARXIO) inj syringe 480 1 07/16/2021 mcg documented in this encounter Additional Health Concerns Noted Time Assessment 07/15/2021 1:27 PM BOATBUILDER WOOD A fall risk assessment has been complet ed for the patient 01/27/2019 11:20 AM CDT PHQ-2 Depression Total Score: 0 documented as of this encounter Care Teams Start Date End Date Manager Of Disaster Recovery Relationship Specialty 01/14/19 Raven Da Silva DO PCP - General Internal [address] [place] [address] documented as of this encounter
--- OUTSIDE RECORDS SUMMARY | 2021-08-07 11:23 | XMS REPORT | Encounter Summary ---
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 [address], [address] [place] [address] Referral ID Status Reason Start Date Expiration Visits Vi sits Date Requested Authorized [id number] Closed 07/15/2021 06/14/2022 99 99 Encounter Details Care Team Description Date Type Department Raven Da Silva DO [address] [place] [address] 07/15/2021 Hospital Oncology: [facility] [place] [address] [facility]. [address], [address] [place] [phone] Social History Date Tobacco Use Types Packs/Day [...] Recorded COVID-19 Exposure Response 07/16/2021 4:48 PM BRAZING MACHINE FEEDER In the last month, have you been [...] tablet tablet by mouth at bedtime daily. 12/22/2018 finasteride (PROSCAR) 5 Take 1 tablet [...] documented in this encounter Progress Notes * Margo Montes RN - 07/15/2021 3:00 PM BRAZING MACHINE FEEDER Patient received filgrastim and tolerated without difficulty. No pertinent escobedo ges since last assessment. ING MACHINE FEEDER documented in this encounter Plan of Treatment Not on filedocumented as of this encounter Visit Diagnoses Diagnosis Malignant neoplasm of upper lobe of rig ht lung (HCC) - Primary Malignant neoplasm of upper lobe, bronc hus or lung * Addendum Note - Indiana Babb - 07/15/2021 3:00 PM BRAZING MACHINE FEEDER Encounter addended by: Indiana Babb on: 07/17/2021 11:40 AM Actions taken: Charge Capture section accepted ING MACHINE FEEDER documented in this encounter Administered Medications Action Date Dose Rate Site Medication Order MAR Action 07/15/2021 4:09 PM BRAZING MACHINE FEEDER 480 mcg Arm, Lef t filgrastim-sndz (ZARXIO) inj syringe 480 Given mcg 480 mcg, Subcutaneous, ONCE, 1 dose, On 07/15/21 at 1605, Round dose to nearest vial size. Give until ANC is greater than 1500/microliter. May use last resulted CBC if within 2 days. documented in this encounter Orders First Ordered Date Medications Ordered That Might Not Have Count Last Ordered Date Been Administered filgrastim-sndz (ZARXIO) inj syringe 480 1 07/15/2021 mcg First Ordered Date Nursing Count Last Ordered Date [facility] 1 0 07/15/2021 PROTOCOLS documented in this encounter Additional Health Concerns Noted Time Assessment 07/15/2021 1:27 PM BRAZING MACHINE FEEDER A fall risk assessment has been complet ed for the patient 01/27/2019 11:20 AM CDT PHQ-2 Depression Total Score: 0 documented as of this encounter Care Teams Start Date End Date Stove Fitter Relationship Specialty 01/14/19 Raven Da Silva DO PCP - General Internal [address] [place] [address] documented as of this encounter
--- OUTSIDE RECORDS SUMMARY | 2021-08-07 11:23 | XMS REPORT | Encounter Summary ---
Author Author [facility] Organization [facility] Address Unknown Phone Unavailable Care Team Providers Care Project Product Manager Name Role Phone Raven Da Silva DO PCP Reason for Referral * Radiology Services (Routine) - Pending Review Diagnoses / Procedures Referred By Contact Referred To Conta ct Specialty Diagnoses Malignant neoplasm of upper lobe of right lung (HCC) Pain and swelling of lower leg, left Procedures US DOPPLER VENOUS LEFT Jaziel Williamson MD [address] [place] [phone] Radiology Referral ID Status Reason Start Date Expiration Visits Vi sits Date Requested Authorized [id number] Pending 07/15/2021 07/15/2022 1 1 Review GER DOMESTIC Reason for Visit * Radiology Services (Routine) - Pending Review Diagnoses / Procedures Referred By Contact Referred To Conta ct Specialty Diagnoses Malignant neoplasm of upper lobe of right lung (HCC) Pain and swelling of lower leg, left Procedures US DOPPLER VENOUS LEFT Jaziel Williamson MD [address] [place] [id number] Radiology Referral ID Status Reason Start Date Expiration Visits Vi sits Date Requested Authorized [id number] Pending 07/15/2021 07/15/2022 1 1 Review Encounter Details Care Team Description Date Type Department Jzaiel Williamson MD [address] [place] [phone] 07/15/2021 Hospital Imaging, Ultrasound : Main Encounter [place], [facility] [address], [address] [place] [address] Social History Date Tobacco Use [...] PM CDT Date Recorded COVID-19 Exposure Response 07/15/2021 12:30 PM MANAGER DOMESTIC In the last month, have you been in contact with Yes someone who was confirmed or suspected to [...] Procedure Name Priority Date/Time Associated Diag nosis US DOPPLER VENOUS LEFT Routine 07/15/2021 Maligna nt neoplasm of 6:24 PM MANAGER DOMESTIC upper lobe of right lung (HCC) Pain and swelling of lower leg, left documented in this encounter Results * US DOPPLER VENOUS LEFT (07/15/2021 6:24 PM MANAGER DOMESTIC) Modality Anatomical Region Laterality Ultrasound Vascular Left Specimen Impressions [facility] RESULTS - 07/15/2021 7:45 PM MANAGER DOMESTIC Predominantly nonocclusive thrombus throughout the left popliteal [...] [facility] RAD RESULTS - 07/15/2021 7:45 PM MANAGER DOMESTIC LEFT LOWER EXTREMITY VENOUS DOPPLER ULTRASOUND CLINICAL [...] Code P ludy Number [facility] RAD RESULTS documented in this encounter Visit Diagnoses Diagnosis Malignant neoplasm of upper lobe of rig ht lung (HCC) Malignant neoplasm of upper lobe, bronc hus or lung Pain and swelling of lower leg, left documented in this encounter Additional Health Concerns Noted Time Assessment 07/15/2021 1:27 PM MANAGER DOMESTIC A fall risk assessment has been complet ed for the patient 01/27/2019 11:20 AM CDT PHQ-2 Depression Total Score: 0 documented as of this encounter Care Teams Start Date End Date Project Product Manager Relationship Specialty 01/14/19 Raven Da Silva DO PCP - General Internal [address] [place] [address] documented as of this encounter
--- OUTSIDE RECORDS SUMMARY | 2021-08-07 11:23 | XMS REPORT | Encounter Summary ---
Author Author [facility] Organization [facility] Address Unknown Phone Unavailable Care Team Providers Care Plasterer Spot Name Role Phone Raven Da Silva PCP Encounter Details Care Team Description Date Type Department 07/16/2021 Travel Social History Date Tobacco Use Types [...] Recorded COVID-19 Exposure Response 07/16/2021 4:48 PM WEDDING COORDINATOR In the last month, have you been [...] Concerns Noted Time Assessment 07/15/2021 1:27 PM WEDDING COORDINATOR A fall risk assessment has been complet ed for the patient 01/27/2019 11:20 AM CDT PHQ-2 Depression Total Score: 0 documented as of this encounter Care Teams Start Date End Date Plasterer Spot Relationship Specialty 01/14/19 Raven Da Silva DO PCP - General Internal [address] [place] [address] documented as of this encounter
--- OUTSIDE RECORDS SUMMARY | 2021-08-07 11:24 | XMS REPORT | Encounter Summary ---
Author Author [facility] Organization [facility] Address Unknown Phone Unavailable Care Team Providers Care Size Marker Name Role Phone Raven Da Silva DO PCP Reason for Visit * Reason Onset Date Comments Critical Result 07/15/2021 Encounter Details Care Team Description Date Type Department Jaziel Williamson MD [address] [place] [address] Critical Result 07/15/2021 Telephone Oncology: [facility] [place] [address] [place] [phone] Social History Date Tobacco Use Types Packs/Day [...] Recorded COVID-19 Exposure Response 07/15/2021 12:30 PM EMERGENCY MEDICAL TECHNICIAN/DRIVER In the last month, have you been [...] Concerns Noted Time Assessment 07/15/2021 1:27 PM EMERGENCY MEDICAL TECHNICIAN/DRIVER A fall risk assessment has been complet ed for the patient 01/27/2019 11:20 AM CDT PHQ-2 Depression Total Score: 0 documented as of this encounter Care Teams Start Date End Date Size Marker Relationship Specialty 01/14/19 Raven Da Silva DO PCP - General Internal [address], [place] [address] documented as of this encounter
--- OUTSIDE RECORDS SUMMARY | 2021-08-07 11:24 | XMS REPORT | Encounter Summary ---
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) 07/15/2021 Nurse Only Oncology: [facility] [address] [place] [address] Social History Date Tobacco Use Types Packs/Day [...] Recorded COVID-19 Exposure Response 07/15/2021 12:30 PM DOCUMENT REVIEW ATTORNEY In the last month, have you been [...] Procedure Name Priority Date/Time Associated Diag nosis HC CBC W/ AUTOMATED DIFF Routine 07/15/2021 Malig nant neoplasm of 12:46 PM DOCUMENT REVIEW ATTORNEY upper lobe of right lung (HCC) HC COMPREHENSIVE Routine 07/15/2021 Malignant koffi plasm of METABOLIC PANEL 12:46 PM DOCUMENT REVIEW ATTORNEY upper lobe of right lung (HCC) documented in this encounter Results * (ABNORMAL) COMPREHENSIVE METABOLIC PANEL (07/15/2021 12:46 PM DOCUMENT REVIEW ATTORNEY) Sodium 134 (L) 137 - 147 MMOL/L [facility] Potassium 4.4 3.5 - 5.1 MMOL/L [facility] Chloride 103 98 - 110 MMOL/L [facility] Glucose 218 (H) 70 - 100 MG/DL [facility] Blood Urea 30 (H) 7 - 25 MG/DL [facility] Nitrogen Creatinine 0.97 0.4 - 1.24 MG/DL [facility] Calcium 8.6 8.5 - 10.6 MG/DL [facility] Total Protein 6.1 6.0 - 8.0 G/DL [facility] Total Bilirubin 1.1 0.3 - 1.2 MG/DL [facility] Albumin 3.6 3.5 - 5.0 G/DL [facility] Alk Phosphatase 112 (H) 25 - 110 U/L [facility] AST (SGOT) 28 7 - 40 U/L [facility] CO2 26 21 - 30 MMOL/L [facility] ALT (SGPT) 21 7 - 56 U/L [facility] Anion Gap 5 3 - 12 [facility] eGFR >60Comment: eGFR calculated >60 mL/min [facility] using the CKD-EPIcr_R equation Specimen Blood (substance) Performing Organization Address City/State/ZIP Code P ludy Number [facility] [address] [place] [address] * (ABNORMAL) CBC AND DIFF (07/15/2021 12:46 PM DOCUMENT REVIEW ATTORNEY) White Blood 0.6 (LL) 4.5 - 11.0 K/UL [facility] Cells Comment: CRITICAL VALUE CALLED TO AND READ BACK BY/TIME/TECH DEVANTE ENRIQUE V at 07/15/2021 13:28:21 by 668 RBC 2.96 (L) 4.4 - 5.5 M/UL [facility] Hemoglobin 8.9 (L) 13.5 - 16.5 GM/DL [facility] Hematocrit 26.9 (L) 40 - 50 % [facility] MCV 90.9 80 - 100 FL [facility] MCH 30.0 26 - 34 PG [facility] MCHC 33.0 32.0 - 36.0 G/DL [facility] RDW 18.4 (H) 11 - 15 % [facility] Platelet Count 58 (L) 150 - 400 K/UL [facility] MPV 9.0 7 - 11 FL [facility] Neutrophils 46 41 - 77 % [facility] Lymphocytes 46 (H) 24 - 44 % [facility] Monocytes 5 4 - 12 % [facility] Eosinophils 2 0 - 5 % [facility] Basophils 1 0 - 2 % [facility] Absolute 0.30 (L) 1.8 - 7.0 K/UL [facility] Neutrophil Count Absolute Lymph 0.30 (L) 1.0 - 4.8 K/UL [facility] Count Absolute 0.00 0 - 0.80 K/UL [facility] Monocyte Count Absolute 0.00 0 - 0.45 K/UL [facility] Eosinophil Count Absolute 0.00 0 - 0.20 K/UL [facility] Basophil Count Specimen Blood (substance) Performing Organization Address City/State/ZIP Code P ludy Number [facility] [address] [place] [id number] documented in this encounter Visit Diagnoses Diagnosis Malignant neoplasm of upper lobe of rig ht lung (HCC) Malignant neoplasm of upper lobe, bronc hus or lung documented in this encounter Additional Health Concerns Noted Time Assessment 07/15/2021 1:27 PM DOCUMENT REVIEW ATTORNEY A fall risk assessment has been complet ed for the patient 01/27/2019 11:20 AM CDT PHQ-2 Depression Total Score: 0 documented as of this encounter Care Teams Start Date End Date Algebra Teacher Relationship Specialty 01/14/19 Raven Da Silva DO PCP - General Internal [address] [place] [address] documented as of this encounter
--- OUTSIDE RECORDS SUMMARY | 2021-08-07 11:24 | XMS REPORT | Encounter Summary ---
Author Author [facility] Organization [facility] Address Unknown Phone Unavailable Care Team Providers Care Grades 7 8 Tutor Name Role Phone Raven Da Silva PCP Encounter Details Care Team Description Date Type Department 07/15/2021 Travel Social History Date Tobacco Use Types [...] Recorded COVID-19 Exposure Response 07/15/2021 12:30 PM JOURNEYMAN LEVEL ACOUSTIC ANALYST In the last month, have you [...] Concerns Noted Time Assessment 07/15/2021 1:27 PM JOURNEYMAN LEVEL ACOUSTIC ANALYST A fall risk assessment has been complet ed for the patient 01/27/2019 11:20 AM CDT PHQ-2 Depression Total Score: 0 documented as of this encounter Care Teams Start Date End Date Grades 7 8 Tutor Relationship Specialty 01/14/19 Raven Da Silva DO PCP - General Internal [address] [place] [address] documented as of this encounter
--- OUTSIDE RECORDS SUMMARY | 2021-08-07 11:25 | XMS REPORT | Encounter Summary ---
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 documented as of this encounter Functional Status Date of Assessment Functional Status Response 06/17/2021 Does the patient have a hearing impairment: No 06/17/2021 Does the patient have a visual impairment: Yes 06/17/2021 Does the patient have impaired ambulation: No 06/17/2021 Does the patient have an activity of daily living No (ADL) impairment: 06/17/2021 Does the patient have an instrumental activity of No daily living (IADL) impairment: Date of Assessment Cognitive Status Response 06/17/2021 Does the patient have a cognitive impairment: No documented as of this encounter Plan of Treatment Not on filedocumented as of this encounter Procedures Comments Procedure Name Priority Date/Time Associated Diag nosis HC CBC W/ AUTOMATED DIFF Routine 07/08/2021 Malig nant neoplasm of 8:30 AM APPLE PICKING SUPERVISOR upper lobe of right lung (HCC) HC COMPREHENSIVE Routine 07/08/2021 Malignant koffi plasm of METABOLIC PANEL 8:30 AM APPLE PICKING SUPERVISOR upper lobe of right lung (HCC) documented in this encounter Results * (ABNORMAL) COMPREHENSIVE METABOLIC PANEL (07/08/2021 8:30 AM APPLE PICKING SUPERVISOR) Sodium 138 137 - 147 MMOL/L [facility] Potassium 3.6 3.5 - 5.1 MMOL/L [facility] Chloride 106 98 - 110 MMOL/L [facility] Glucose 343 (H) 70 - 100 MG/DL [facility] Blood Urea 25 7 - 25 MG/DL [facility] Nitrogen Creatinine 1.12 0.4 - 1.24 MG/DL [facility] Calcium 8.8 8.5 - 10.6 MG/DL [facility] Total Protein 6.1 6.0 - 8.0 G/DL [facility] Total Bilirubin 0.9 0.3 - 1.2 MG/DL [facility] Albumin 3.8 3.5 - 5.0 G/DL [facility] Alk Phosphatase 102 25 - 110 U/L [facility] AST (SGOT) 15 7 - 40 U/L [facility] CO2 25 21 - 30 MMOL/L [facility] ALT (SGPT) 11 7 - 56 U/L [facility] Anion Gap 7 3 - 12 [facility] eGFR >60Comment: eGFR calculated >60 mL/min [facility] using the CKD-EPIcr_R equation Specimen Blood (substance) Performing Organization Address City/State/ZIP Code P ludy Number [facility] [address] [place] [address] * (ABNORMAL) CBC AND DIFF (07/08/2021 8:30 AM APPLE PICKING SUPERVISOR) White Blood 3.1 (L) 4.5 - 11.0 K/UL [facility] Cells RBC 3.56 (L) 4.4 - 5.5 M/UL [facility] Hemoglobin 11.0 (L) 13.5 - 16.5 GM/DL [facility] Hematocrit 33.0 (L) 40 - 50 % [facility] MCV 92.8 80 - 100 FL [facility] MCH 30.8 26 - 34 PG [facility] MCHC 33.2 32.0 - 36.0 G/DL [facility] RDW 19.5 (H) 11 - 15 % [facility] Platelet Count 86 (L) 150 - 400 K/UL [facility] MPV 8.5 7 - 11 FL [facility] Neutrophils 67 41 - 77 % [facility] Lymphocytes 23 (L) 24 - 44 % [facility] Monocytes 8 4 - 12 % [facility] Eosinophils 2 0 - 5 % [facility] Basophils 0 0 - 2 % [facility] Absolute 2.10 1.8 - 7.0 K/UL [facility] Neutrophil Count Absolute Lymph 0.70 (L) 1.0 - 4.8 K/UL [facility] Count Absolute 0.20 0 - 0.80 K/UL [facility] Monocyte Count Absolute 0.10 0 - 0.45 K/UL [facility] Eosinophil Count Absolute 0.00 0 - 0.20 K/UL [facility] Basophil Count Specimen Blood (substance) Performing Organization Address City/State/ZIP Code P ludy Number [facility] [address] [place] [address] documented in this encounter Visit Diagnoses Diagnosis Malignant neoplasm of upper lobe of rig ht lung (HCC) - Primary Malignant neoplasm of upper lobe, bronc hus or lung documented in this encounter Additional Health Concerns Noted Time Assessment 07/08/2021 10:00 AM APPLE PICKING SUPERVISOR A fall risk assessment has been complet ed for the patient 01/27/2019 11:20 AM CDT PHQ-2 Depression Total Score: 0 documented as of this encounter Care Teams Start Date End Date Circuit Clerk Relationship Specialty 01/14/19 Raven Da Silva DO PCP - General Internal [address] [place] [address] documented as of this encounter
--- OUTSIDE RECORDS SUMMARY | 2021-08-07 11:25 | XMS REPORT | Encounter Summary ---
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 [place], [place] Referral ID Status Reason Start Date Expiration Visits Vi sits Date Requested Authorized [id number] Authorized 06/17/2021 12/25/2021 99 99 Encounter Details Care Team Description Date Type Department Colt Richards MD [address] [place] [address] Jaziel Williamson MD [address] [place] [address] 07/08/2021 Hospital Oncology: [facility] [address] [place] [address] Social History Date Tobacco Use Types Packs/Day [...] Recorded COVID-19 Exposure Response 07/08/2021 7:53 AM DEVULCANIZER CHARGER In the last month, have you been in contact with No / Unsure someone who was confirmed or suspected to have Coronavirus / COVID-19? documented as of this encounter Last Filed Vital Signs Reading Time Taken Comments Vital Sign 151/60 07/08/2021 12:15 PM DEVULCANIZER CHARGER Blood Pressure 76 07/08/2021 12:15 PM DEVULCANIZER CHARGER Pulse 36.7 C (98 F) 07/08/2021 9:40 AM DEVULCANIZER CHARGER Temperature 16 07/08/2021 12:15 PM DEVULCANIZER CHARGER Respiratory Rate 97% 07/08/2021 12:15 PM DEVULCANIZER CHARGER Oxygen Saturation - - Inhaled Oxygen Concentration 161.7 kg (356 lb 6.4 oz) 07/08/2021 9:40 AM DEVULCANIZER CHARGER Weight 197 cm (6' 5.56") 07/08/2021 9:40 AM DEVULCANIZER CHARGER Height 41.66 07/08/2021 9:40 AM DEVULCANIZER CHARGER Body Mass Index documented in this encounter [...] tablet 0 mg tablet by mouth daily. insulin lispro (HUMALOG Inject under 0 PEN SC) the skin. 12/13/2018 LANTUS U-100 INSULIN 100 Inject 40 0 unit/mL injection Units under the skin twice daily. 09/25/2018 losartan(+) (COZAAR) 100 Take 1 tablet [...] mouth into the lungs four times daily. 09/30/2018 sertraline (ZOLOFT) 100 Take 1 tablet 0 mg tablet by mouth daily. 12/22/2018 tamsulosin (FLOMAX) 0.4 Take 1 0 mg capsule capsule by mouth daily. vitamins, B complex tab Take 1 tablet 0 by mouth daily. 07/11/2021 Cetirizine 10 mg cap Take 1 0 capsule by mouth daily. documented as of this encounter Discharge Disposition Code Departure Means Destination Disposition Home Home or Self Care documented in this encounter Progress Notes * Priscila Valladares RN - 07/08/2021 4:15 PM DEVULCANIZER CHARGER Took over patient care from Jazmin Montilla RN at 1445. Patient is currently receivi ng Taxol as ordered without incidence. Patient has no questions, concerns, or co mplaints at this time. 1550: Patient completed Carbolpatin, patient was given AV S, patient's PIV was flushed and removed, and patient discharged ambulatory in g ood condition with all belongings. LCANIZER CHARGER * Holly Montilla RN - 07/08/2021 9:30 AM DEVULCANIZER CHARGER Patient and I reviewed treatment plan. Common side effects of treatment. Dr Richard card notified of platelets of 86,000. CHEMO NOTE Verified chemo consent signed and in chart. Verified initiate chemo order in O2 Blood return positive via: Peripheral (22 ga) BSA and dose double checked (agree with orders as written) with: yes Labs/applicable tests checked: CBC and Comprehensive Metabolic Panel (CMP) Chemo regime: Drug/cycle/day C1 D1 paclitaxel 595.998mg, carboplatin 635mg Rate verified and armband double checkwith second RN: yes Patient education offered and stated understanding. Denies questions at this william e. Patient Patient is tolerating paclitaxel without any issues. Report given to Yomi Francois RN. LCANIZER CHARGER documented in this encounter Plan of Treatment Not on filedocumented as of this encounter Visit Diagnoses Diagnosis Malignant neoplasm of upper lobe of rig ht lung (HCC) - Primary Malignant neoplasm of upper lobe, bronc hus or lung * Addendum Note - Indiana Babb - 07/08/2021 9:30 AM DEVULCANIZER CHARGER Encounter addended by: Indiana Babb on: 07/10/2021 11:55 AM Actions taken: Charge Capture section accepted LCANIZER CHARGER documented in this encounter Administered Medications Action Date Dose Rate Site Medication Order MAR Action 07/08/2021 3:16 PM DEVULCANIZER CHARGER 635 mg 627 mL/hr CARBOplatin (PARAPLATIN) 635 mg in Given - New sodium chloride 0.9% (NS) 313.5 mL IVPB Bag (AUC-SWOG) 635 mg (Target AUC = 5), Intravenous, 313.5 mL, Administer over 0.5 Hours, ONCE, 1 dose, On Thu07/08/21 at 1331, Administer after Paclitaxel. NURSING: Administration required by chemotherapy credentialed nurse when ordered for a cancer indication NOTE: This is a HIGH ALERT Medication. 07/08/2021 10:41 AM DEVULCANIZER CHARGER 8 mg dexamethasone PF (DECADRON) injection 8 Given mg 8 mg, Intravenous, 1 mL, ONCE, 1 dose, On Thu07/08/21 at 1001 07/08/2021 10:54 AM DEVULCANIZER CHARGER 50 mg diphenhydrAMINE HCL (BENADRYL) injection Given 50 mg 50 mg, Intravenous, ONCE, 1 dose, On Mo n 07/08/21 at 1001 07/08/2021 10:35 AM DEVULCANIZER CHARGER 20 mg famotidine (PEPCID) injection 20 mg Given 20 mg, Intravenous, ONCE, 1 dose, On Mo n 07/08/21 at 1001, DILUTE W/ 10ML NS OR D5W. GIVE IV PUSH OVER 2 MIN 07/08/2021 11:17 AM DEVULCANIZER CHARGER 150 mg 450 mL/hr fosaprepitant (EMEND) 150 mg in sodium Given - New chloride 0.9% (NS) 150 mL IVPB Bag 150 mg, Intravenous, 150 mL, Administer over 20 Minutes, ONCE, 1 dose, On Thu07/08/21 at 1001 07/08/2021 12:00 PM DEVULCANIZER CHARGER 521.502 mg 195.6 mL/hr PACLitaxeL (TAXOL) 521.502 mg in sodium Given - New chloride 0.9% (NS) 586.917 mL IVPB Bag (non-DEHP/PVC) 521.502 mg (rounded from 521.5 mg = 175 mg/m2 2.98 m2 Treatment Plan BSA from Recorde d weight), Intravenous, 586.917 mL, Administer over 3 Hours, ONCE, 1 dose, On Thu07/08/21 at 1033, Administer Paclitaxel prior to Carboplatin. NURSING: Administration required by chemotherapy credentialed nurse when ordered for a cancer indication NOTE: This is a HIGH ALERT Medication. 07/08/2021 10:49 AM DEVULCANIZER CHARGER 0.25 mg palonosetron(+) (ALOXI) injection 0.25 Given mg 0.25 mg, Intravenous, ONCE, 1 dose, On 07/08/21 at 1001 documented in this encounter Orders First Ordered Date Medications Ordered That Might Not Have Count Last Ordered Date Been Administered PACLitaxeL (TAXOL) 595.998 mg in sodium 1 07/08/2021 chloride 0.9% (NS) 599.333 mL IVPB (non-DEHP/PVC) First Ordered Date Nursing Count Last Ordered Date [facility] 1 0 07/08/2021 PROTOCOLS documented in this encounter Additional Health Concerns Noted Time Assessment 07/08/2021 10:00 AM DEVULCANIZER CHARGER A fall risk assessment has been complet ed for the patient 01/27/2019 11:20 AM CDT PHQ-2 Depression Total Score: 0 documented as of this encounter Care Teams Start Date End Date Legal Administrative Secretary Relationship Specialty 01/14/19 Raven Da Silva DO PCP - General Internal [address] [place] [address] documented as of this encounter
--- OUTSIDE RECORDS SUMMARY | 2021-08-07 11:25 | XMS REPORT | Encounter Summary ---
Author Author [facility] Organization [facility] Address Unknown Phone Unavailable Care Team Providers Care Treasury Associate Name Role Phone Raven Da Silva DO PCP Reason for Visit * Reason Onset Date Comments Navigation Assessment 07/10/2021 Encounter Details Care Team Description Date Type Department Ayo Hernandez MD [address] [place] [address] Navigation Assessment 07/10/2021 Telephone Hematology: [facility] [address] [facility] [place] [address] Social History Date Tobacco Use [...] Recorded COVID-19 Exposure Response 07/08/2021 7:53 AM MATERIAL SCHEDULER In the last month, have you been [...] encounter Miscellaneous Notes * Telephone Encounter - Pricilla Pebbles, RN - 07/10/2021 9:59 AM MATERIAL SCHEDULER Navigation Intake Assessment Document Patient Name: Elian Gaffney : 1945 Insurance: [facility] Medicare Appointment Info: Future Appointments Date Time Provider Department Center 07/11/2021 3:30 PM Blake Ascencio MD XRT [facility] Radiati 07/15/2021 12:15 PM NURSE CHAIR IN LAB LEVEL [address] Exam 07/15/2021 1:20 PM Jaziel Williamson MD [facility] Exam 07/22/2021 8:50 AM Ayo Hernandez MD [id number] [facility] Exam 08/19/2021 10:40 AM Mary Skaggs MD CFT GEN HEP CFT [facility] Diagnosis & Reason for Visit: Thrombocytopenia-evaluate and treat Physician Info: Referring Physician: Jaziel Ryder Med/Onc Location of Films: IN HOUSE Location of Pathology: IN HOUSE History of Present Illness: 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 He has a treatment history as follows: - 03/2019: SBRT to initial [id number] IBNSCLC of the RUL - 06/04/21 to 06/12/21: SBRT to [address] Patient started cycle one of chemotherapy 07/08/2021 consisting of carboplatin an d paclitaxel. He is scheduled for cycle two on 07/29/2021. Patient has a long standing history of thrombocytopenia. Records viewable in O2 and Care Everywhere show thormbocytopenia dating back to 2014 with platelets ra nging from 86-110. Patient is a direct referral to Dr Hernandez for further evaluat ion. Allergies reviewed and verified with the patient, and documented in Epic: Yes Comments: Records are in O2. Additional records are in Care Everywhere. Patient Education COVID-19 guidelines reviewed with patient, including: visitor and universal ma sking policies, and a temperature check at the facility entrance upon arrival. RIAL SCHEDULER documented in this encounter Plan of Treatment Not on filedocumented as of this encounter Visit Diagnoses Not on filedocumented in this encounter Additional Health Concerns Noted Time Assessment 07/08/2021 10:00 AM MATERIAL SCHEDULER A fall risk assessment has been complet ed for the patient 01/27/2019 11:20 AM CDT PHQ-2 Depression Total Score: 0 documented as of this encounter Care Teams Start Date End Date Treasury Associate Relationship Specialty 01/14/19 Raven Da Silva DO PCP - General Internal [address] [place] [address] documented as of this encounter
--- OUTSIDE RECORDS SUMMARY | 2021-08-07 11:25 | XMS REPORT | Encounter Summary ---
Author Author [facility] Organization [facility] Address Unknown Phone Unavailable Care Team Providers Care Postal Service Window Clerk Name Role Phone Raven Da Silva PCP Reason for Referral * Consult, Test & Treat (Routine) - Pending Review Diagnoses / Procedures Referred By Contact Referred To Conta ct Specialty Diagnoses Malignant neoplasm of upper lobe of right lung (HCC) Jaziel Williamson MD [address] [place] [address] Ayo Hernandez MD [address] [place] [id number] Oncology Referral ID Status Reason Start Date Expiration Visits Vi sits Date Requested Authorized [id number] Pending Specialty Services 07/08/2021 07/08/2022 1 1 Review Required Comments Low platelets [facility] Reason for Visit * Reason Comments Follow Up Encounter Details Care Team Description Date [place] [address] [place] [phone] Malignant neoplasm of upper lobe of righ t lung (HCC) (Primary Dx) 07/08/2021 Office Visit Oncology: [facility] [address] [phone] Social History Date Tobacco Use Types Packs/Day [...] Recorded COVID-19 Exposure Response 07/08/2021 7:53 AM RN [facility] In the last month, have you been in contact with No / Unsure someone who was confirmed or suspected to have Coronavirus / COVID-19? documented as of this encounter Last Filed Vital Signs Reading Time Taken Comments Vital Sign 161/53 07/08/2021 9:47 AM RN [facility] Taken by Donald turner Blood Pressure 92 07/08/2021 9:47 AM RN [facility] Taken by Donald turner Pulse 36.7 C (98 F) 07/08/2021 9:47 AM RN [facility] Taken by Donald turner Temperature 20 07/08/2021 9:47 AM RN [facility] Taken by Donald turner Respiratory Rate 92% 07/08/2021 9:47 AM RN [facility] Taken by Donald turner Oxygen Saturation - - Inhaled Oxygen Concentration 161.7 kg (356 lb 6.4 oz) 07/08/2021 9:47 AM RN [facility] Taken by Ki ayala Weight 197 cm (6' 5.56") 07/08/2021 9:47 AM RN [facility] Taken by Donald turner Height 41.66 07/08/2021 9:47 AM RN [facility] Body Mass Index documented in this encounter [...] Date End Date Prescription Sig Dispensed Refills 07/08/2021 08/07/2021 ondansetron HCL (ZOFRAN) Take one 120 tablet 0 4 mg tablet tablet by mouth every 6 hours as needed for Nausea or Vomiting for up to 30 days. documented in this encounter Progress Notes * Jaziel Williamson MD - 07/08/2021 8:40 AM RN [facility] PATIENT'S NAME: Elian Gaffney DATE OF / AGE: 12 1945 / 76 y.o. 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 CURRENT TREATMENT: Adjuvant chemotherapy with carboplatin/paclitaxol PAST TREATMENT: - 03/2019: SBRT to initial [id number] IBNSCLC of the RUL - 06/04/21 to 06/12/21: SBRT to [address] ONCOLOGY HISTORY: - Smoking history: smoked ~30 years on average 1-2 packs per day. But quitted 20 years ago. - 03/2019: SBRT to initial [id number] IBNSCLC of the RUL - 03/05/21: CT [...] - 07/08/21: C1D1 of adjuvant chemotherapy with carboplatin/paclitaxol INTERVAL HISTORY: Now s/p SBRT to mediastinal lymph node. Breathing is overall s table. He is ready to start adjuvant chemotherapy today. PAST MEDICAL HISTORY: Medical History: Diagnosis Date COPD (chronic obstructive pulmonary disease) (HCC) Diabetes mellitus (HCC) Hypertension Malignant neoplasm of upper lobe of right lung (HCC) Pulmonary emboli (HCC) PAST SURGICAL HISTORY: Surgical History: Procedure Laterality Date TONSILLECTOMY 1957 DENTAL SURGERY 1958 COLOSTOMY 2000 CATARACT REMOVAL Left 2015 CHOLECYSTECTOMY 2019 BRONCHOSCOPY DIAGNOSTIC WITH CELL WASHING - FLEXIBLE N/A 01/31/2019 Performed by Demarco Gracia MD at [facility] OR BRONCHOSCOPY WITH TRANSBRONCHIAL LUNG BIOPSY - FLEXIBLE - SINGLE LOBE N/A Performed by Demarco Gracia MD at [facility] OR BRONCHOSCOPY WITH TRANSBRONCHIAL NEEDLE ASPIRATION AND BIOPSY TRACHEA/ MAIN STEM/ LOBAR BRONCHUS - FLEXIBLE N/A 01/31/2019 Performed by Demarco Gracia MD at [facility] OR BRONCHOSCOPY WITH ENDOBRONCHIAL ULTRASOUND GUIDED TRANSTRACHEAL/ TRANSBRONCH IAL SAMPLING - 3 OR MORE MEDIASTINAL/ HILAR LYMPH NODE STATIONS/ STRUCTURE - FLE XIBLE N/A 01/31/2019 Performed by Demarco Gracia MD at [facility] OR BRONCHOSCOPY DIAGNOSTIC WITH CELL WASHING - FLEXIBLE N/A 03/13/2021 Performed by Gregory Austin MD at [facility] OR BRONCHOSCOPY WITH TRANSBRONCHIAL LUNG BIOPSY - FLEXIBLE - SINGLE LOBE N/A Performed by Gregory Austin MD at [facility] OR BRONCHOSCOPY WITH TRANSBRONCHIAL NEEDLE ASPIRATION AND BIOPSY TRACHEA/ MAIN STEM/ LOBAR BRONCHUS - FLEXIBLE N/A 03/13/2021 Performed by Gregory Austin MD at [facility] OR BRONCHOSCOPY WITH ENDOBRONCHIAL ULTRASOUND GUIDED TRANSTRACHEAL/ TRANSBRONCH IAL SAMPLING - 3 OR MORE MEDIASTINAL/ HILAR LYMPH NODE STATIONS/ STRUCTURE - FLE LAMONT N/A 03/13/2021 Performed by Gregory Austin MD at [facility] OR ABDOMINAL EXPLORATION SURGERY BACK SURGERY [...] mouth into the noam ngs twice daily. Cetirizine 10 mg cap Take 1 capsule by mouth daily. cyclobenzaprine (FLEXERIL) 10 mg tablet Take one tablet by mouth at bedtime daily. 30 tablet 1 finasteride (PROSCAR) 5 mg tablet Take 1 tablet by mouth daily. insulin lispro (HUMALOG PEN SC) Inject under the skin. LANTUS U-100 INSULIN 100 unit/mL injection Inject 40 Units under the skin tw ice daily. losartan(+) (COZAAR) 100 mg tablet Take 1 tablet by mouth daily. meloxicam (MOBIC) 7.5 mg tablet Take 1 tablet by mouth daily. 0 metFORMIN (GLUCOPHAGE) 500 mg tablet Take 1 tablet by mouth twice daily. omeprazole DR(+) (PRILOSEC) 20 mg capsule Take 20 mg by mouth daily. pioglitazone (ACTOS) 15 mg tablet Take 1 tablet by mouth daily. PROAIR HFA 90 mcg/actuation inhaler Inhale 2 puffs by mouth into the lungs f our times daily. sertraline (ZOLOFT) 100 mg tablet Take 1 tablet by mouth daily. 0 tamsulosin (FLOMAX) 0.4 mg capsule Take 1 capsule by mouth daily. vitamins, B complex tab Take 1 tablet by mouth daily. No current facility-administered medications on file prior to visit. REVIEW OF SYSTEMS: Constitutional: No weight loss. No fever or chills Eyes: No red eyes. No itchy eyes. [...] color of urine Musculoskeletal: No joints pain. No swelling of the upper or lower extremities Integumentary: No rash. Neuro: No headache. No focal weakness or numbness in the upper or lower extremi ties Endocrine: No heat or cold intolerance. No excessive sweating All other systems are negative. PHYSICAL EXAMINATION: Vitals: 07/08/21 0947 BP: (!) 161/53 Pulse: 92 Resp: 20 Temp: 36.7 C (98 F) SpO2: 92% ECOG performance status: 2 Constitutional: Alert and [...] limitation in the joints' range of motion. No lower extremity edema Neuro: CN II-XII intact. Strength in the upper and lower extremities: intact. S ensations in the upper and lower extremities: intact Integumentary: No rash. Heme/Lymph/Immunology: No cervical, supraclavicular, axillary or inguinal lympha denopathy LABS: Reviewed PATHOLOGY: See above. RADIOLOGY: See above ASSESSMENT & PLANS: Initially [id number] IBNSCLC of the RULs/p SBRT in 03/2019, [...] paclita xel 175 mg/m2 due to thrombocytopenia. Today is C1D1. - Chronic thrombocytopenia: will refer to machine brusher Dr. Hernandez. - RTC in 1 week with CBC, CMP and check tolerability. - He is scheduled to see hepatology [...] of emergencies. --- Jaziel Williamson MD, PhD [employer] Division of Medical Oncology Department of Internal Medicine [facility] [place] CC: Blake Ascencio MD [facility] documented in this encounter Plan of Treatment Order Schedule Name Type Priority Associated Diag noses Ordered: 07/08/2021 AMB REFERRAL TO Outpatient Routine Malignant neop lasm of HEMATOLOGY ONCOLOGY Referral upper lobe of righ t lung (HCC) documented as of this encounter Visit Diagnoses Diagnosis Malignant neoplasm of upper lobe of rig ht lung (HCC) - Primary Malignant neoplasm of upper lobe, bronc hus or lung documented in this encounter Additional Health Concerns Noted Time Assessment 07/08/2021 10:00 AM RN [facility] A fall risk assessment has been complet ed for the patient 01/27/2019 11:20 AM CDT PHQ-2 Depression Total Score: 0 documented as of this encounter Care Teams Start Date End Date Postal Service Window Clerk Relationship Specialty 01/14/19 Raven Da Silva DO PCP - General Internal [address] [place] [address] documented as of this encounter
--- OUTSIDE RECORDS SUMMARY | 2021-08-07 11:25 | XMS REPORT | Encounter Summary ---
Author Author [facility] Organization [facility] Address Unknown Phone Unavailable Care Team Providers Care Back Sewer Name Role Phone Raven Da Silva PCP Encounter Details Care Team Description Date Type Department 07/08/2021 Travel Social History Date Tobacco Use Types [...] Recorded COVID-19 Exposure Response 07/08/2021 7:53 AM [facility] In the last month, have you been [...] Concerns Noted Time Assessment 07/08/2021 10:00 AM [facility] A fall risk assessment has been complet ed for the patient 01/27/2019 11:20 AM CDT PHQ-2 Depression Total Score: 0 documented as of this encounter Care Teams Start Date End Date Back Sewer Relationship Specialty 01/14/19 Raven Da Silva DO PCP - General Internal [address] [place] [address] documented as of this encounter
--- OUTSIDE RECORDS SUMMARY | 2021-08-07 11:25 | XMS REPORT | Encounter Summary ---
Author Author [facility] Organization [facility] Address Unknown Phone Unavailable Care Team Providers Care Blast Furnace Operator Name Role Phone Raven Da Silva DO PCP Reason for Visit * Reason Onset Date Comments Appointment 07/08/2021 Encounter Details Care Team Description Date Type Department Jaziel Williamson MD [address] [place] [address] Appointment 07/08/2021 Telephone Oncology: [facility] [place] [phone] Social History Date Tobacco Use Types Packs/Day [...] Recorded COVID-19 Exposure Response 07/08/2021 7:53 AM ASSEMBLER RUBBER FOOTWEAR In the last month, have you been [...] encounter Miscellaneous Notes * Telephone Encounter - [place]ár[place] - 07/08/2021 3:36 PM ASSEMBLER RUBBER FOOTWEAR Spoke with pt's advised of scheduled appointment MBLER RUBBER FOOTWEAR documented in this encounter Plan of Treatment Not on filedocumented as of this encounter Visit Diagnoses Not on filedocumented in this encounter Additional Health Concerns Noted Time Assessment 07/08/2021 10:00 AM ASSEMBLER RUBBER FOOTWEAR A fall risk assessment has been complet ed for the patient 01/27/2019 11:20 AM CDT PHQ-2 Depression Total Score: 0 documented as of this encounter Care Teams Start Date End Date Blast Furnace Operator Relationship Specialty 01/14/19 Raven Da Silva DO PCP - General Internal [address] [place], [place] [phone] documented as of this encounter
--- OUTSIDE RECORDS SUMMARY | 2021-08-07 11:25 | XMS REPORT | Encounter Summary ---
Author Author [facility] Organization [facility] Address Unknown Phone Unavailable Care Team Providers Care Shop Mechanic Name Role Phone Raven Da Silva DO PCP Encounter Details Care Team Description Date Type Department Jaziel Williamson MD [address] [place] [address] Malignant neoplasm of upper lobe of righ t lung (HCC) (Primary Dx) 07/03/2021 Orders Only Oncology: [facility] [address] [place] [address] Social History Date Tobacco Use Types Packs/Day [...] PM CDT Date Recorded COVID-19 Exposure Response 06/17/2021 12:30 PM SCHOOL COMMUNITY RELATIONS COORDINATOR In the last month, have you [...] filedocumented as of this encounter Results * (ABNORMAL) CBC AND DIFF (07/15/2021 12:46 PM SCHOOL COMMUNITY RELATIONS COORDINATOR) White Blood 0.6 (LL) 4.5 - 11.0 [...] Code P ludy Number [facility] [address] [place] [address] * (ABNORMAL) COMPREHENSIVE METABOLIC PANEL (07/15/2021 12:46 PM SCHOOL COMMUNITY RELATIONS COORDINATOR) Sodium 134 (L) 137 - 147 MMOL/L [...] Organization Address City/State/ZIP Code P ludy Number [facility] [address] [place] [address] documented in this encounter Visit Diagnoses Diagnosis Malignant neoplasm of upper lobe of rig ht lung (HCC) - Primary Malignant neoplasm of upper lobe, bronc hus or lung documented in this encounter Additional Health Concerns Noted Time Assessment 06/17/2021 1:08 PM SCHOOL COMMUNITY RELATIONS COORDINATOR A fall risk assessment has been complet ed for the patient 01/27/2019 11:20 AM CDT PHQ-2 Depression Total Score: 0 documented as of this encounter Care Teams Start Date End Date Shop Mechanic Relationship Specialty 01/14/19 Raven Da Silva DO PCP - General Internal [address] [place] [address] documented as of this encounter
--- OUTSIDE RECORDS SUMMARY | 2021-08-07 11:25 | XMS REPORT | Encounter Summary ---
Author Author [facility] Organization [facility] Address Unknown Phone Unavailable Care Team Providers Care Catering Director Name Role Phone Raven Da Silva DO PCP Encounter Details Care Team Description Date Type Department Garry Cohen, MAYA 07/11/2021 Orders Only Oncology: [facility] [place] [address] [facility] [place] [address] Social History Date Tobacco Use Types Packs/Day [...] Recorded COVID-19 Exposure Response 07/08/2021 7:53 AM COOK RAILROAD In the last month, have you been [...] Date End Date Prescription Sig Dispensed Refills 07/11/2021 loratadine (CLARITIN) 10 Take one 90 tablet 0 mg tablet tablet by mouth every morning. 07/11/2021 gabapentin (NEURONTIN) Take one 90 capsule 1 300 mg capsule capsule by mouth every 8 hours. documented in this encounter Plan of Treatment Not on filedocumented as of this encounter Visit Diagnoses Not on filedocumented in this encounter Discontinued Medications Start Date End Date Medication Sig Discontinue Reason 07/11/2021 Cetirizine 10 mg cap Take 1 Duplicate capsule by Order mouth daily. documented as of this encounter Additional Health Concerns Noted Time Assessment 07/08/2021 10:00 AM COOK RAILROAD A fall risk assessment has been complet ed for the patient 01/27/2019 11:20 AM CDT PHQ-2 Depression Total Score: 0 documented as of this encounter Care Teams Start Date End Date Catering Director Relationship Specialty 01/14/19 Raven Da Silva DO PCP - General Internal [address] [place], [place] [id number] documented as of this encounter
--- OUTSIDE RECORDS SUMMARY | 2021-08-07 11:25 | XMS REPORT | Encounter Summary ---
Author Author [facility] Organization [facility] Address Unknown Phone Unavailable Care Team Providers Care Anatomic Pathology Manager Name Role Phone Raven Da Silva DO PCP Reason for Referral * Radiology Services (Routine) - Pending Review Diagnoses / Procedures Referred By Contact Referred To Conta ct Specialty Diagnoses Malignant neoplasm of upper lobe of right lung (HCC) Pain and swelling of lower leg, left Procedures US DOPPLER VENOUS LEFT Jaziel Williamson MD [address] [place] [address] Radiology Referral ID Status Reason Start Date Expiration Visits Vi sits Date Requested Authorized [id number] Pending 07/15/2021 07/15/2022 1 1 Review H PARTS GRINDER Reason for Visit * Reason Comments Follow Up Encounter Details Care Team Description Date Type Department Jaziel Williamson MD [address] [place] [address] Malignant neoplasm of upper lobe of righ t lung (HCC) (Primary Dx); Pain and swelling of lower leg, left 07/15/2021 Office Visit Oncology: [facility] [address] [place] [address] Social History Date Tobacco Use Types Packs/Day [...] Recorded COVID-19 Exposure Response 07/16/2021 4:48 PM WATCH PARTS GRINDER In the last month, have you been in contact with No / Unsure someone who was confirmed or suspected to have Coronavirus / COVID-19? documented as of this encounter Last Filed Vital Signs Reading Time Taken Comments Vital Sign 143/57 07/15/2021 1:27 PM WATCH PARTS GRINDER Blood Pressure 84 07/15/2021 1:27 PM WATCH PARTS GRINDER Pulse 37.3 C (99.1 F) 07/15/2021 1:27 PM WATCH PARTS GRINDER Temperature - - Respiratory Rate 97% 07/15/2021 1:27 PM WATCH PARTS GRINDER Oxygen Saturation - - Inhaled Oxygen Concentration 160.6 kg (354 lb) 07/15/2021 1:27 PM WATCH PARTS GRINDER Weight - - Height 41.38 07/08/2021 9:47 AM WATCH PARTS GRINDER Body Mass Index documented in this encounter [...] Date End Date Prescription Sig Dispensed Refills 07/15/2021 08/14/2021 enoxaparin (LOVENOX) 150 Inject 1 mL 30 each 0 mg/mL syringe under the skin daily for 30 days. 07/15/2021 08/14/2021 HYDROcodone/acetaminophen Take one 30 tablet 0 (NORCO) 5/325 mg tablet tablet by mouth every 8 hours as needed for Pain for up to 30 days 07/15/2021 08/14/2021 prochlorperazine maleate Take one 120 tablet 0 (COMPAZINE) 5 mg tablet tablet by mouth every 6 hours as needed for Nausea or Vomiting for up to 30 days. 07/15/2021 07/22/2021 filgrastim-sndz (ZARXIO) Inject 0.8 mL 4.8 mL 0 480 mcg/0.8 mL inj under the syringe skin every 24 hours for 6 days. 07/15/2021 07/20/2021 levoFLOXacin (LEVAQUIN) Take one 5 tablet 0 500 mg tablet tablet by mouth daily for 5 days. documented in this encounter Progress Notes * Jaziel Williamson MD - 07/15/2021 1:20 PM WATCH PARTS GRINDER [facility] PATIENT'S NAME: Elian Gaffney DATE OF / AGE: 12 1945 / 76 y.o. 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 CURRENT TREATMENT: Adjuvant chemotherapy with carboplatin/paclitaxol PAST TREATMENT: - 03/2019: SBRT to initial [id number] IBNSCLC of the RUL - 06/04/21 to 06/12/21: SBRT to [address] ONCOLOGY HISTORY: - Smoking history: smoked ~30 years on average 1-2 packs per day. But quitted 20 years ago. - 03/2019: SBRT to initial [id number] IBNSCLC of the RUL - 03/05/21: CT [...] possibility. This can also be evaluated wi PET/CT. Otherwise, follow-up CT chest in 3 [...] adjuvant chemotherapy with carboplatin/paclitaxol. INTERVAL HISTORY: He presented for tox check after his first cycle of carbo/taxo l. He reports that he did not tolerate his first cycle that well. He reports of fatigue, he was not able to take care of his . He says he didn 't have any strength His joints were aching. He also reports of nausea and vomiting despite taking ondansetron q 6hours. He w as not able to keep anything down. He does report of diarrhea about 2-3 times a day. He complaints of poor eye sight L worse than R, also reports of glaring in his e yes. His diabetes is overall well controlled. Denies any mouth sores, fever or chills. PAST MEDICAL HISTORY: Medical History: Diagnosis Date [...] 01/31/2019 Performed by Demarco Gracia MD at [facility] OR BRONCHOSCOPY WITH TRANSBRONCHIAL LUNG BIOPSY - FLEXIBLE - SINGLE LOBE N/A Performed by Demarco Gracia MD at [facility] OR BRONCHOSCOPY WITH TRANSBRONCHIAL NEEDLE ASPIRATION AND BIOPSY TRACHEA/ MAIN STEM/ LOBAR BRONCHUS - FLEXIBLE N/A 01/31/2019 Performed by Demarco Gracia MD at [facility] OR BRONCHOSCOPY WITH ENDOBRONCHIAL ULTRASOUND GUIDED TRANSTRACHEAL/ TRANSBRONCH IAL SAMPLING - 3 OR MORE MEDIASTINAL/ HILAR LYMPH NODE STATIONS/ STRUCTURE - FLE XIBLE N/A 01/31/2019 Performed by Demarco Gracia MD at [facility] OR BRONCHOSCOPY DIAGNOSTIC WITH CELL WASHING - FLEXIBLE N/A 03/13/2021 Performed by Gregory Austin MD at [facility] OR BRONCHOSCOPY WITH TRANSBRONCHIAL LUNG BIOPSY - FLEXIBLE - SINGLE LOBE N/A Performed by Gregory Austin MD at [facility] OR BRONCHOSCOPY WITH TRANSBRONCHIAL NEEDLE ASPIRATION AND BIOPSY TRACHEA/ MAIN STEM/ LOBAR BRONCHUS - FLEXIBLE N/A 03/13/2021 Performed by Gregory Austin MD at [facility] OR BRONCHOSCOPY WITH ENDOBRONCHIAL ULTRASOUND GUIDED TRANSTRACHEAL/ TRANSBRONCH IAL SAMPLING - 3 OR MORE MEDIASTINAL/ HILAR LYMPH NODE STATIONS/ STRUCTURE - FLE XIBLE N/A 03/13/2021 Performed by Gregory Austin MD at [facility] OR ABDOMINAL EXPLORATION SURGERY BACK SURGERY [...] mouth into the noam ngs twice daily. cyclobenzaprine (FLEXERIL) 10 mg tablet Take one tablet by mouth at bedtime daily. 30 tablet 1 finasteride (PROSCAR) 5 mg tablet Take 1 tablet by mouth daily. gabapentin (NEURONTIN) 300 mg capsule Take one capsule by mouth every 8 hour s. 90 capsule 1 insulin lispro (HUMALOG PEN SC) Inject under [...] up to 30 days. 120 tablet 0 pioglitazone (ACTOS) 15 mg tablet Take 1 [...] other systems are negative. PHYSICAL EXAMINATION: Vitals: 07/15/21 1327 BP: (!) 143/57 Pulse: 84 Temp: 37.3 C (99.1 F) SpO2: 97% ECOG performance status: 2 Constitutional: Alert and [...] RADIOLOGY: See above ASSESSMENT & PLANS: Initially [id number] IBNSCLC of the RULs/p SBRT in 03/2019, [...] at AUC 5. - Chronic thrombocytopenia: He is scheduled to see Dr. Hernandez next week. - Chemotherapy induced severe neutropenia: will start on GCSF support daily for 7 days to achieve ANC at ~1500. ANC today 300, started on prophylactic levofloxa francesco. - Chemotherapy induced nausea/vomiting: Continue PRN zofran q 8 hourly, added pr n compazine q6hr - Neoplasia related pain- [place] 5/325 q 6hr PRN for pain - LLE swelling and pain- will get US LLE to rule out DVT - RTC in 2 week with CBC, CMP and possible cycle 2 chemotherapy. - He is scheduled to see hepatology for evaluation of his elevated bilirubin. -Patient will follow up in the interim should they develop adverse symptoms. Terrell newman verbalized understanding and agrees to plan of care. Patient seen and discussed with KARLO Laws PGY 6- Hematology/Medical Oncology Fellow [facility] Pager- Addendum: Radiology reported that the ultrasound left lower extremity was positive deep ve nous thrombosis. I called the patient's daughter [Jeannette], discussed the results of the ultrasound. We discussed about the need of anticoagulation but also exp ressed the concern for risk of bleeding given his low platelet counts. We will start him on Lovenox 1 mg/kg subcutaneous daily and repeat his labs on , 07/18/2021. If his platelets are improving we will increase the Lovenox to thera peutic dosing. Also recommended that, if the patient started having chest pain, shortness of breath, palpitations he needs to go to ED for further evaluation/C TA chest to rule out pulmonary embolism. She agreed. She said that they are on the way to their home and they won't to be able to pick up worker the Lovenox tonight, she will pick up worker the Lovenox early in the morning. Other option would be to get him admitted, they preferred to get lovenox in AM. Discussed with Dr Williamson. I personally interviewed and examined the patient. I have reviewed the history, physical, impression and agreed with the plan outlined by the fellow. Above A/P were explained in detail to [...] of emergencies. --- Jaziel Williamson MD, PhD Municipal Firefighter Division of Medical Oncology Department of Internal Medicine [facility] CC: Blake Ascencio MD H PARTS GRINDER documented in this encounter Miscellaneous Notes * Patient Instructions - Tara Lynn RN - 07/15/2021 1:20 PM WATCH PARTS GRINDER Images from the original note were not included. To reschedule appointments please contact: [phone] To speak to a nurse between the hours of 8:00 to 4:00 please call [phone] Dr. Marino's nurse: Luisa Williamson's nurse: Kate/Tara Gilmore's nurse: Jodee Pak, TOOLS DEVELOPER: Tara Please ensure your schedule is correct [...] to avoid filling your narcotic prescriptions at [employer], [employer], or [employer]. PLEASE BRING YOUR NAUSEA AND OR PAIN [...] all the medicines youre taking. This includes yggx-ncc-xpbbyrf medicines, herbal rem edies, supplements, and even illegal or street drugs. Medicines that may be unsa fe to use with opioids include: Other udjo-ftu-bfbjkgm pain relievers, such as acetaminophen Other prescription [...] dispose of your medicine safely: Find your [facility] medicine take-back program. This may involve dropping [...] learn more at the following website: www.fda.gov/consum ers/consumer-updates/ogjhd-slf-yzk-hvfunut-rrevqm-kiqqoocbh. Always check with y our local water and waste management company to find out if flushing opioids is allowed in your city or state. Stopping opioid treatment If you have been taking an opioid for more than a few weeks, your body gets used to having it. When you stop taking the medicine, withdrawal symptoms may develo p that range from mild to severe. The list of possible withdrawal symptoms is ve ry long. They can include: Restlessness and anxiety [...] this takes can vary for every person. [facility] last reviewed this educational content on 11/14/201919997278-0627 [employer]. All rights reserved. This information is not intended as a substitute for professional medical care. Always follow your healthcare professional's instructions. H PARTS GRINDER documented in this encounter Plan of Treatment Order Schedule Name Type Priority Associated Diag noses Expected: 07/18/2021, Expires: 3 CBC AND DIFF Lab Routine Malignant neopl asm of upper lobe of right lung (HCC) Pain and swelling of lower leg, left Expected: 07/18/2021, Expires: 3 COMPREHENSIVE METABOLIC Lab Routine Malign ant neoplasm of PANEL upper lobe of right lung (HCC) Pain and swelling of lower leg, left documented as of this encounter Results * CBC AND DIFF (07/18/2021) White Blood [facility] RBC [facility] Hemoglobin [facility] Hematocrit [facility] MCH [facility] M[facility] Platelet Count [facility] MPV [facility] RDW [facility] Neutrophils [facility] Absolute [facility] Count Lymphocytes [facility] Absolute Lymph [facility] Monocytes [facility] Absolute [facility] Eosinophil [facility] Absolute [facility] Count Basophils [facility] Absolute [facility] Basophil Count [facility] Atypical Lym [facility] Metamyelocyte [facility] Myelocyte [facility] Promyelocyte [facility] Blast [facility] RBC Morph [facility] WBC Morphology [facility] Specimen Blood - Blood (substance) Narrative Performing Organization Address City/State/ZIP Code P [facility] Number [address] [address] * COMPREHENSIVE METABOLIC PANEL (07/18/2021) Sodium [facility] [...] MED CENTER eGFR Non [facility] [place] eGFR [facility] [place] Anion Gap [facility] Specimen Blood - Blood (substance) Narrative Performing Organization Address [facility] Code P [address] [address] * US DOPPLER VENOUS LEFT (07/15/2021 6:24 PM WATCH PARTS GRINDER) Modality Anatomical Region Laterality Ultrasound Vascular Left Specimen Impressions [facility] RAD RESULTS - 07/15/2021 7:45 PM WATCH PARTS GRINDER Predominantly nonocclusive thrombus throughout the left popliteal [...] [facility] RAD RESULTS - 07/15/2021 7:45 PM WATCH PARTS GRINDER LEFT LOWER EXTREMITY VENOUS DOPPLER ULTRASOUND CLINICAL [...] Pain and swelling of lower leg, left Malignant neoplasm of upper lobe of rig ht lung (HCC) Malignant neoplasm of upper lobe, bronc hus or lung Pain and swelling of lower leg, left documented in this encounter Additional Health Concerns Noted Time Assessment 07/15/2021 1:27 PM WATCH PARTS GRINDER A fall risk assessment has been complet ed for the patient 01/27/2019 11:20 AM CDT PHQ-2 Depression Total Score: 0 documented as of this encounter Care Teams Start Date End Date Anatomic Pathology Manager Relationship Specialty 01/14/19 Raven Da Silva DO PCP - General Internal [address] [place] [address] documented as of this encounter
--- OUTSIDE RECORDS SUMMARY | 2021-08-07 11:26 | XMS REPORT | Encounter Summary ---
Author Author [facility] Organization [facility] Address Unknown Phone Unavailable Care Team Providers Care Forest Engineer Name Role Phone Raven DaS ilva DO PCP Reason for Visit * Reason Comments Heme/Onc Care Encounter Details Care Team Description Date Type Department Erlin Deleon, MAYA 06/17/[address] [address] Social History Date Tobacco Use Types Packs/Day [...] Recorded COVID-19 Exposure Response 06/17/2021 12:30 PM TEST SPECIALIST In the last month, have you been [...] as of this encounter Progress Notes * Erlin Deleon PHARMD - 06/17/2021 2:58 PM TEST SPECIALIST Chemotherapy Education Provided patient with written and verbal education regarding paclitaxel/carbopla tin chemotherapy for the treatment of NSCLC. Reviewed chemotherapy schedule. Patient will receive chemotherapy in 21-day cyc les as follows: Paclitaxel IV over 3 hours Carboplatin IV over 30 minutes Growth factor may be administered 24-72 hours after chemotherapy administrat ion if white blood cells do not recover well after first cycle of chemotherapy Reviewed side effects of chemotherapy, including - but not limited to: Low blood counts (explained associated risk for infection, bleeding, bruisin g, fatigue, weakness) Nausea and vomiting (explained the purpose of scheduled antiemetics before c hemotherapy and the use of PRNs in the event of breakthrough CINV) Potential kidney toxicity and electrolyte abnormalities (explained the impor tance of maintaining oral intake) Changes in lab tests (explained that the medical team will be monitoring lab values closely) Hair loss Potential peripheral neuropathy Potential hypersensitivity (pre-medications may be de-escalated after the fi rst two doses if no reaction to paclitaxel) Changes in bowel habits / poor appetite / mouth sores & mucositis / taste changes Advised patient to contact clinic for any of the following scenarios or if any o ther questions/concerns arise: Persistent uncontrolled nausea/vomiting uncontrolled by PRN antiemetics Extreme fatigue Inability to self-hydrate or eat for >24 hours Other GI issues unresponsive to current medications Uncontrolled pain Any swelling, burning, pain, or redness at the infusion site Educated patient to not start any new medications, vitamins, or herbals prior to contacting clinic. Patient voiced understanding about the provided information. All questions/campbell rns addressed at this time. Medication handout(s) provided. Erlin Deleon PHARMD SPECIALIST documented in this encounter Plan of Treatment Not on filedocumented as of this encounter Visit Diagnoses Not on filedocumented in this encounter Additional Health Concerns Noted Time Assessment 06/17/2021 1:08 PM TEST SPECIALIST A fall risk assessment has been complet ed for the patient 01/27/2019 11:20 AM CDT PHQ-2 Depression Total Score: 0 documented as of this encounter Care Teams Start Date End Date Forest Engineer Relationship Specialty 01/14/19 Raven Da Silva DO PCP - General Internal [address] [place] [address] documented as of this encounter
--- OUTSIDE RECORDS SUMMARY | 2021-08-07 11:29 | XMS REPORT | Encounter Summary ---
Author Author [facility] Organization [facility] Address Unknown Phone Unavailable Care Team Providers Care Dance Artist Name Role Phone Raven Da Silva DO PCP Reason for Visit * Reason Onset Date Comments Referral 06/10/2021 Encounter Details Care Team Description Date Type Department Unknown, Unknown, MD Referral 06/10/2021 Telephone Transplant: Main [facility], [facility] [address] [place] [address] Social History Date Tobacco Use [...] PM CDT Date Recorded COVID-19 Exposure Response 05/23/2021 8:56 AM HYDROCHLORIC AREA SUPERVISOR In the last month, have you been in contact with No / Unsure someone who was confirmed or suspected to have Coronavirus / COVID-19? documented as of this encounter Miscellaneous Notes * Telephone Encounter - Meagan Shaikh - 06/11/2021 11:34 AM HYDROCHLORIC AREA SUPERVISOR READY TO SCHED [facility] OCHLORIC AREA SUPERVISOR * Telephone Encounter - Jeremy Matute RN - 06/11/2021 11:14 AM HYDROCHLORIC AREA SUPERVISOR Hepatology Referral Summary Elian Gaffney, 1945, [id number] Reason for Visit/Diagnosis: Fatty liver HPI Summary: 75yo who follows at for lung cancer was found to have fatty liver on sono don e to look for METS. OLT Patients Only PMH & Social Hx: MELD: Labs: In O2 CBC and CMP Radiology/Facility: In O2 Sono attached to imaging order Pathology/Facility: N/A Endoscopy/Facility: N/A Appointment Needs -- - Provider: Flavia Martin MD - Urgency: Next Available - Department: LTC - Other: None Insurance: Payor: [facility] / Plan: [facility] MEDICARE REPLACEMENT / Product Type: Medicare / Provider Info -- Referring: Jaziel Williamson MD [address] [phone] PCP: Raven Da Silva [facility] [address] OCHLORIC AREA SUPERVISOR * Telephone Encounter - Meagan Shaikh - 06/10/2021 11:40 AM HYDROCHLORIC AREA SUPERVISOR Referral received via internal. Docs in . OCHLORIC AREA SUPERVISOR documented in this encounter Plan of Treatment Not on filedocumented as of this encounter Visit Diagnoses Not on filedocumented in this encounter Additional Health Concerns Noted Time Assessment 05/23/2021 9:02 AM HYDROCHLORIC AREA SUPERVISOR A fall risk assessment has been complet ed for the patient 01/27/2019 11:20 AM CDT PHQ-2 Depression Total Score: 0 documented as of this encounter Care Teams Start Date End Date Dance Artist Relationship Specialty 01/14/19 Raven Da Silva DO PCP - General Internal [facility] [address] [phone] documented as of this encounter
--- OUTSIDE RECORDS SUMMARY | 2021-08-07 11:29 | XMS REPORT | Encounter Summary ---
Author Author [facility] Organization [facility] Address Unknown Phone Unavailable Care Team Providers Care Pocket Operator Name Role Phone Raven Da Silva PCP Encounter Details Care Team Description Date Type Department 06/17/2021 Travel Social History Date Tobacco Use Types [...] Recorded COVID-19 Exposure Response 06/17/2021 12:30 PM SAGGER PREPARER In the last month, have you been [...] Concerns Noted Time Assessment 06/17/2021 1:08 PM SAGGER PREPARER A fall risk assessment has been complet ed for the patient 01/27/2019 11:20 AM CDT PHQ-2 Depression Total Score: 0 documented as of this encounter Care Teams Start Date End Date Pocket Operator Relationship Specialty 01/14/19 Raven Da Silva DO PCP - General Internal [address] [place] [address] documented as of this encounter
--- OUTSIDE RECORDS SUMMARY | 2021-08-07 11:29 | XMS REPORT ---
Patient Summary 2.1 Created on: 08/07/2021 ISELA YEE : 1945 Sex: Male Author Author ISELA DE LA ROSA Organization Unknown Address [address] [place] [id number] Care Team Providers Care Fish Tender Name Role Phone Watchlist JENI MYRICK Attending PRACHI CADET Erdoc1 Functional Status No Data Found Immunization No Data Found Mental Status No Data Found Results COMPREHENSIVE METABOLIC PANEL - Collect Date/Time: 08/07/2021 04:35 [facility] ID: [id number] [address] [place] [address], [address] LOINC: Test Value Unit Reference Range Code Code System SODIUM 139 mmol/L 134-148 POTASSIUM 4.6 mmol/L 3.5-5.3 CHLORIDE 99 mmol/L 95-114 CO2 30 mEq/L 22-33 ANION GAP 15 6-14 GLUCOSE 236 mg/dL 70-110 BUN 15 mg/dL 5-25 CREATININE 0.86 mg/dL 0.50-1.50 CALCIUM 8.1 mg/dL 8.3-10.4 GLOBULIN 2.3 g/dL 2.3-3.5 ALKALINE PHOS 105 U/L 35-130 SGOT/AST 16 U/L 2-40 SGPT/ALT 8 U/L 6-45 TOTAL BILI 1.6 mg/dL 0.2-1.2 TOTAL PROTEIN 5.5 g/dL 6.0-8.3 ALBUMIN 3.2 g/dL 3.6-5.1 OSMOLALITY 295 280-295 EGFR 87 mL/min/1.73m2 >59 CBC WITH AUTO DIFF - Collect Date/Time: 08/07/2021 04:35 [facility] ID: [id number] [address] [place] [address], [id number] LOINC: Test Value Unit Reference Range Code Code System WBC 3.70 K/uL 5.00-10.00 RBC 2.45 M/uL 4.20-5.40 HEMOGLOBIN 7.6 g/dL 14.0-17.0 HEMATOCRIT 25.8 % 42.0-52.0 MCV 105.3 fL 80.0-97.0 MCH 31.0 pg 27.0-31.2 MCHC 29.5 g/dL 32.0-36.0 PLATELETS 83 K/uL 150-400 RDW 21.2 % 11.6-14.8 #NEUT 2.61 K/uL 2.00-6.90 %NEUT 70.6 % 37.0-80.0 #LYMPH 0.49 K/uL 0.60-3.40 %LYMPH 13.2 % 10.0-50.0 #MONO 0.5 K/uL 0.0-0.9 %MONO 13.8 % 0.0-12.0 #EOS 0.1 K/uL 0.0-0.7 %EOS 1.6 % 0.0-7.0 #BASO 0.0 K/uL 0.0-0.2 %BASO 0.80 % 0.00-2.50 MPV 10.8 fL 7.4-10.0 COMPREHENSIVE METABOLIC PANEL - Collect Date/Time: 08/06/2021 04:30 [facility] ID: [id number] [address] [place] [address], [address] LOINC: Test Value Unit Reference Range Code Code System SODIUM 138 mmol/L 134-148 POTASSIUM 4.5 mmol/L 3.5-5.3 CHLORIDE 99 mmol/L 95-114 CO2 32 mEq/L 22-33 ANION GAP 12 6-14 GLUCOSE 194 mg/dL 70-110 BUN 13 mg/dL 5-25 CREATININE 1.00 mg/dL 0.50-1.50 CALCIUM 8.3 mg/dL 8.3-10.4 GLOBULIN 2.1 g/dL 2.3-3.5 ALKALINE PHOS 106 U/L 35-130 SGOT/AST 16 U/L 2-40 SGPT/ALT 10 U/L 6-45 TOTAL BILI 1.6 mg/dL 0.2-1.2 TOTAL PROTEIN 5.4 g/dL 6.0-8.3 ALBUMIN 3.3 g/dL 3.6-5.1 OSMOLALITY 290 280-295 EGFR 73 mL/min/1.73m2 >59 CBC WITH AUTO DIFF - Collect Date/Time: 08/06/2021 04:30 [facility] ID: [id number] [address] [place] [address], [address] LOINC: Test Value Unit Reference Range Code Code System WBC 4.48 K/uL 5.00-10.00 RBC 2.72 M/uL 4.20-5.40 HEMOGLOBIN 8.2 g/dL 14.0-17.0 HEMATOCRIT 28.2 % 42.0-52.0 MCV 103.7 fL 80.0-97.0 MCH 30.1 pg 27.0-31.2 MCHC 29.1 g/dL 32.0-36.0 PLATELETS 107 K/uL 150-400 RDW 20.8 % 11.6-14.8 #NEUT 3.12 K/uL 2.00-6.90 %NEUT 69.8 % 37.0-80.0 #LYMPH 0.62 K/uL 0.60-3.40 %LYMPH 13.8 % 10.0-50.0 #MONO 0.7 K/uL 0.0-0.9 %MONO 14.7 % 0.0-12.0 #EOS 0.1 K/uL 0.0-0.7 %EOS 1.3 % 0.0-7.0 #BASO 0.0 K/uL 0.0-0.2 %BASO 0.40 % 0.00-2.50 MPV 11.3 fL 7.4-10.0 URINALYSIS AUTO W/ MICROSCOPIC - Collect Date/Time: 08/05/2021 23:55 [facility] ID: [id number] [address] [place] [address], [address] LOINC: Test Value Unit Reference Range Code Code System Color Red Colorless-Lt. Yellow Appear Cloudy Clear Glucose. Negative Negative Bilirubin 2+ Negative Icto Negative Negative Ketones Trace Negative Sp.[place] >= 1.030 1.000-1.030 Blood 3+ Negative pH 6.0 5-8.5 Protein 3+ Negative Urobil 1.0 E.U./dL 0.2-1.0 Nitrite Positive Negative Leukocytes Negative Negative U.WBC Negative U.RBC TNTC Bacteria Trace Epithelial None Mucus Negative Urine Crystals None Seen Ur Casts None Seen Urine Yeast Not Present Urine Volume Sufficient Other See Comment BNP - Collect Date/Time: 08/05/2021 11:4 2 [facility] ID: [id number] [address] [place] [address], [address] LOINC: Test Value Unit Reference Range Code Code System BNP 305.00 pg/ml 0.00-100.00 COVID-19 RAPID - Collect Date/Time: 07/17 11:41 [facility] ID: [id number] [address] [place] [address], [address] LOINC: Test Value Unit Reference Range Code Code System COVID 19 RAPID Negative PROCALCITONIN (PCT) - Collect Date/Time: 08/05/2021 05:30 [facility] ID: [id number] [address] [place] [address], [address] LOINC: Test Value Unit Reference Range Code Code System Procalcitonin 0.19 0.00-0.10 COMPREHENSIVE METABOLIC PANEL - Collect Date/Time: 08/05/2021 05:30 [facility] ID: [id number] [address] [place] [address], [address] LOINC: Test Value Unit Reference Range Code Code System SODIUM 141 mmol/L 134-148 POTASSIUM 4.3 mmol/L 3.5-5.3 CHLORIDE 102 mmol/L 95-114 CO2 31 mEq/L 22-33 ANION GAP 12 6-14 GLUCOSE 178 mg/dL 70-110 BUN 10 mg/dL 5-25 CREATININE 0.85 mg/dL 0.50-1.50 CALCIUM 8.2 mg/dL 8.3-10.4 GLOBULIN 2.1 g/dL 2.3-3.5 ALKALINE PHOS 111 U/L 35-130 SGOT/AST 16 U/L 2-40 SGPT/ALT 8 U/L 6-45 TOTAL BILI 1.6 mg/dL 0.2-1.2 TOTAL PROTEIN 5.4 g/dL 6.0-8.3 ALBUMIN 3.3 g/dL 3.6-5.1 OSMOLALITY 294 280-295 EGFR 88 mL/min/1.73m2 >59 CBC WITH AUTO DIFF - Collect Date/Time: 08/05/2021 05:30 [facility] ID: [id number] [address] [place] [address], [address] LOINC: Test Value Unit Reference Range Code Code System WBC 4.31 K/uL 5.00-10.00 RBC 2.84 M/uL 4.20-5.40 HEMOGLOBIN 8.6 g/dL 14.0-17.0 HEMATOCRIT 29.2 % 42.0-52.0 MCV 102.8 fL 80.0-97.0 MCH 30.3 pg 27.0-31.2 MCHC 29.5 g/dL 32.0-36.0 PLATELETS 107 K/uL 150-400 RDW 20.9 % 11.6-14.8 #NEUT 2.84 K/uL 2.00-6.90 %NEUT 65.8 % 37.0-80.0 #LYMPH 0.81 K/uL 0.60-3.40 %LYMPH 18.8 % 10.0-50.0 #MONO 0.6 K/uL 0.0-0.9 %MONO 13.7 % 0.0-12.0 #EOS 0.1 K/uL 0.0-0.7 %EOS 1.2 % 0.0-7.0 #BASO 0.0 K/uL 0.0-0.2 %BASO 0.50 % 0.00-2.50 MPV 11.5 fL 7.4-10.0 URINALYSIS AUTO W/ MICROSCOPIC - Collect Date/Time: 08/04/2021 15:40 [facility] ID: [id number] [address] [place] [address], [address] LOINC: Test Value Unit Reference Range Code Code System Color Yellow Colorless-Lt. Yellow Appear Clear Clear Glucose. Negative Negative Bilirubin Negative Negative Icto N/A Negative Ketones Negative Negative Sp.[place] 1.015 1.000-1.030 Blood Negative Negative pH 5.5 5-8.5 Protein Negative Negative Urobil 0.2 E.U./dL 0.2-1.0 Nitrite Negative Negative Leukocytes Trace Negative U.WBC 2-5/HPF U.RBC Negative Bacteria Trace Epithelial 0-5/HPF Urine Volume Sufficient Other See Comment LACTIC ACID - Collect Date/Time: 022 15:11 [facility] ID: [id number] [address] [place] [address], [address] LOINC: Test Value Unit Reference Range Code Code System LACTIC ACID 19.5 mg/dL 4.5-19.8 COMPREHENSIVE METABOLIC PANEL - Collect Date/Time: 08/04/2021 15:11 [facility] ID: [id number] [address] [place] [address], [address] LOINC: Test Value Unit Reference Range Code Code System SODIUM 137 mmol/L 134-148 POTASSIUM 4.2 mmol/L 3.5-5.3 CHLORIDE 101 mmol/L 95-114 CO2 24 mEq/L 22-33 ANION GAP 16 6-14 GLUCOSE 388 mg/dL 70-110 BUN 11 mg/dL 5-25 CREATININE 0.91 mg/dL 0.50-1.50 CALCIUM 8.5 mg/dL 8.3-10.4 GLOBULIN 2.6 g/dL 2.3-3.5 ALKALINE PHOS 113 U/L 35-130 SGOT/AST 18 U/L 2-40 SGPT/ALT 14 U/L 6-45 TOTAL BILI 1.7 mg/dL 0.2-1.2 TOTAL PROTEIN 5.9 g/dL 6.0-8.3 ALBUMIN 3.3 g/dL 3.6-5.1 OSMOLALITY 297 280-295 EGFR 81 mL/min/1.73m2 >59 CBC WITH AUTO DIFF - Collect Date/Time: 08/04/2021 15:11 [facility] ID: [id number] [address] [place] [address], [address] LOINC: Test Value Unit Reference Range Code Code System WBC 2.99 K/uL 5.00-10.00 RBC 2.78 M/uL 4.20-5.40 HEMOGLOBIN 8.5 g/dL 14.0-17.0 HEMATOCRIT 28.9 % 42.0-52.0 MCV 104.0 fL 80.0-97.0 MCH 30.6 pg 27.0-31.2 MCHC 29.4 g/dL 32.0-36.0 PLATELETS 100 K/uL 150-400 RDW 20.8 % 11.6-14.8 #NEUT 2.21 K/uL 2.00-6.90 %NEUT 73.9 % 37.0-80.0 #LYMPH 0.35 K/uL 0.60-3.40 %LYMPH 11.7 % 10.0-50.0 #MONO 0.4 K/uL 0.0-0.9 %MONO 12.7 % 0.0-12.0 #EOS 0.0 K/uL 0.0-0.7 %EOS 1.0 % 0.0-7.0 #BASO 0.0 K/uL 0.0-0.2 %BASO 0.70 % 0.00-2.50 MPV 11.4 fL 7.4-10.0 CT ABDOMEN/PELVIS W CONTRAST - Completed : 08/04/2021 18:48 LOINC: 80971-0 \DRAo\\PGNo\\MRB2\ [address] [address] ---------NAME--------- NUM HUSSEIN SEX AGE ADMIT DISC. XRAY# F/C TYPE JOSELITO WEISS R [id number] M 76 08/04/21 [id number] [id number] O/P DATE OF : 1945 M/R# [id number] #: [id number] 110-1 LOCATION: TRANSCRIBED: 08/06/21 12:[address] ABDOMEN/PELVIS W CONTRAST [id number] COMPLETED:08/04/21 18:48 [facility] [id number] {REASON FOR ABDOMEN: Low hgb, constipation, h/o lung cancer PHYSICIAN: JENI ALAN R A D I O L O G Y R E P O R T EXAMINATION: CT ABDOMEN/PELVIS W CONTRAST REASON FOR EXAM: REASON FOR ABDOMEN: Low hgb, constipation, h/o lung cancer- TECHNIQUE: 5 mm axial images of the abdomen and pelvis were obtained after the administration of 98 mL of Omnipaque 300. Coronal reconstructions were performed. Automated exposure control was performed using [employer], which adjustsmA and/or kV according to patient size. COMPARISON: There is a CT scan dated August 28, 2020 of the abdomen and pelvis FINDINGS: Lung bases: There is some mild ground-glass appearance in the lung bases. Minimal right-sided pleural effusion is seen. Liver: Mild heterogeneity of the liver contour and attenuation. No focal hepatic abnormality is seen. Gallbladder: Surgical clips are seen in the gallbladder fossa. Spleen: The spleen is prominent in size at about 23 cm. Pancreas: Normal. Adrenal glands: Normal. Kidneys: There are nonobstructing right renal calcifications measuring 15 mm and8 mm. There is a 4.5 cm exophytic cyst off the right kidney. No ureteral calcification is seen. No hydronephrosis is evident. Bladder: Grossly unremarkable Bowel: The stomach, colon and small bowel are stable in appearance. No pericolonic fluid collection or inflammatory change is seen. Reproductive: Prostate gland is prominent in size. There is mass effect on the inferior bladder. Pelvis: No pelvic mass or pathologically enlarged lymph node is seen. Periaortic space: No para-aortic adenopathy or mass is seen. There is an IVC filter. There are some small subcentimeter stable periaortic lymph nodes. Peritoneum: No free fluid or free air is seen. Bony structures: Posterior laminectomy changes seen in the lower lumbar spine. Degenerative disc disease and facet hypertrophy is seen. IMPRESSION: 1. The liver and spleen are prominent in size. The liver is mildly heterogenousin attenuation. 2. Patchy airspace disease in the lung bases. This may represent viral pneumonia pulmonary edema. Minimal right-sided pleural effusion is seen. 3. There are a couple of nonobstructing right renal calcifications. 4. The prostate gland is prominent in size. This ca uses mass effect on the bladder. 5. The CT abdomen and pelvis with contrast is essentially stable. [facility] created a report August 04, 2019 at 1829 hours. Read by: NILAM OWENS Transcribed by: Transcribed Date: Electronically signed by: NILAM OWENS Date signed: 08/06/2021 12:10:54 PM \ITLo\\UNDo\ \UNDx\\ITLx\Reviewed and Electronically Signed by:DCTNAMERADCREDSigned Date:SIGNDATE XR ABDOMEN ONE VIEW - Completed: 022 10:03 LOINC: 57446-9 \DRAo\\PGNo\\MRB2\ [facility] [address] [place] [address] ---------NAME--------- NUM HUSSEIN SEX AGE ADMIT DISC. XRAY# F/C TYPE JOSELITO WEISS Kaylie [id number] M 76 08/04/21 [id number] [id number] O/P DATE OF : 1945 M/R# [id number] #: [id number] 110-1 LOCATION: TRANSCRIBED: 08/05/21 10:17 0 XR ABDOMEN ONE VIEW [id number] COMPLETED:08/05/21 10:03 [facility] 5477 {REASON FOR ABDOMEN: Constipation PHYSICIAN: JENI MIN R A D I O L O G Y R E P O R T EXAMINATION: XR ABDOMEN ONE VIEW REASON FOR EXAM: Constipation- COMPARISON: None available. FINDINGS: Supine view of the abdomen demonstrates air and stool in the colon down to the rectum. No dilated air filled loops of small bowel are seen. Soft tissue contours and bony structures are unremarkable. No pathological calcifications are seen. Surgical clips are seen in the gallbladder fossa. There is an IVC filter right of the lumbar spine at L3-4. IMPRESSION: Nonspecific abdomen without evidence of mechanical obstruction or free air. Read by: NILAM OWENS Transcribed by: Transcribed Date: Electronically signed by: NILAM OWENS Date signed: 08/05/2021 10:17:05 AM \ITLo\\UNDo\ \UNDx\\ITLx\Reviewed and Electronically Signed by:DCTNAMERADCREDSigned Date:SIGNDATE XR CHEST SINGLE VIEW - Completed: 2021 18:58 LOINC: 15678-5 \DRAo\\PGNo\\MRB2\ [facility] [address] [place] [address] ---------NAME--------- NUM HUSSEIN SEX AGE ADMIT DISC. XRAY# F/C MUNIRA Lott [id number] M 76 08/04/21 [id number] [id number] O/P DATE OF : 1945 M/R# [id number] #: [id number] 110-1 LOCATION: TRANSCRIBED: 08/05/21 8:46 0 XR CHEST SINGLE VIEW [id number] COMPLETED:08/04/21 18:58 MDG 5474 {REASON FOR CHEST: Shortness of breath PHYSICIAN: JENI VELARDE STO R A D I O L O G Y R E P O R T EXAMINATION: XR CHEST SINGLE VIEW REASON FOR EXAM: Shortness of breath- COMPARISON: 07/18/2021 FINDINGS: The cardiac silhouette is enlarged. Right greater than left pulmonary opacities. Trace bilateral pleural effusions. No sizable pneumothorax. IMPRESSION: Right greater than left pulmonary opacities, in the acute setting the differential includes asymmetric pulmonary edema or infection. Follow-up to resolution is suggested. Read by: JONATHON NUNO Transcribed by: Transcribed Date: Electronically signed by: JONATHON NUNO Date signed: 08/05/2021 8:46:17 AM \ITLo\\UNDo\ \UNDx\\ITLx\Reviewed and Electronically Signed by:DCTNAMERADCREDSigned Date:SIGNDATE XR CHEST TWO VIEWS - Completed: 08/05/19 22 10:03 LOINC: 15720-0 \DRAo\\PGNo\\MRB2\ [facility] [address] [facility] [place] [address] ---------NAME--------- NUM HUSSEIN SEX AGE ADMIT DISC. XRAY# F/C TYPE JOSELITO Lott [id number] M 76 08/04/21 [id number] MB7 O/P DATE OF : 1945 M/R# [id number] #: [id number] 110-1 LOCATION: TRANSCRIBED: 08/05/21 10:15 0 XR CHEST TWO VIEWS [id number] COMPLETED:08/05/21 10:03 [facility] 5478 {REASON FOR CHEST: Rales/Rhonchi/Wheeze PHYSICIAN: JENI ROMERO R A D I O L O G Y R E P O R T EXAMINATION: XR CHEST TWO VIEWS REASON FOR EXAM: Rales/Rhonchi/Wheeze- COMPARISON: There is a chest x-ray dated August 04, 2021 FINDINGS: The heart size, pulmonary vascularity and mediastinum are stable. No pleural effusion or pneumothorax is seen. Patchy pulmonary opacity is seen in the lungs. This is mildly increased from the previous study. IMPRESSION: 1. Mildly increased patchy pulmonary opacity in the lungs. This could be consistent with COVID pneumonia. Asymmetric pulmonary edema could give this appearance. 2. No significant pleural effusion or pneumothorax is seen. Read by: NILAM OWENS Transcribed by: Transcribed Date: Electronically signed by: NILAM OWENS Date signed: 08/05/2021 10:15:05 AM \ITLo\\UNDo\ \UNDx\\ITLx\Reviewed and Electronically Signed by:DCTNAMERADCREDSigned Date:SIGNDATE Social History Type Status Start Date End Date Code Code System Smoking History Never smoker (Never Smoked ) 268603387 SNOMED-CT Smoking History Former smoker 09/14/1999 2436860 SNOME D-CT Vital Signs Vital Sign Value Unit Keldron Value Keldron Unit Date/Time Recent/Initial? Code Cod e System Body Mass Index 8.90 kg/m2 08/04/2021 14:58 Initial 76454-7 LOINC Systolic Blood Pressure 125 mm[Hg] 08/07/2021 07:32 Most Recent 8480-6 LOINC Diastolic Blood Pressure 47 mm[Hg] 08/07/2021 07:32 Most Recent 8462-4 LOINC Systolic Blood Pressure 137 mm[Hg] 08/04/2021 14:58 Initial 8480-6 LOINC Diastolic Blood Pressure 45 mm[Hg] 08/04/2021 14:58 Initial 8462-4 LOINC Body Surface Area 3.04 m2 08/04/2021 14:58 Initial 3140-1 LOINC Height 200.6600 cm 79.00 in 08/04/2021 14:58 Initial 8302-2 LOINC O2 Saturation 95 % 08/07/2021 07:32 Most Recent 00450-2 LOINC O2 Saturation 96 % 08/04/2021 14:58 Initial 26160-6 LOINC Pulse 66.0 /min 0 08/07/2021 07:32 Most Recent 8867-4 LOINC Pulse 74.0 /min 0 08/04/2021 14:58 Initial 8867-4 LOINC Respiration 19 /min 08/07/2021 07:32 Most Recent 9279-1 LOINC Respiration 16 /min 08/04/2021 14:58 Initial 9279-1 LOINC Temperature 36.5 Charline 97.7 F 08/07/2021 07:32 Most Recent 8310-5 LOINC Temperature 36.8 Charline 98.3 F 08/04/2021 14:58 Initial 8310-5 [facility] Weight 165.33 kg 364.50 lbs 08/07/2021 04:52 Most Recent 51445-6 [facility] Weight 166.16 kg 366.31 lbs 08/04/2021 14:58 Initial 65968-4 [facility] Medications Medication Start Date En d Date Route Frequency Dose Code Code System Medication Instructions dilTIAZem HCl 120MG Oral Capsule, Extended Release, 24 HR 07/22/2021 Unknown BY MOUTH Twice A Day 120 MILLIGRAMS 542061 RxNorm TAKE 120 MILLIGRAMS BY MOUTH Twice A Day Mix & Meet cy Anti-Diarrheal 2MG Oral Capsule, Liquid Filled 07/22/2021 Unknown BY MOUTH Every 6 Hours As Needed 2 MILLIGRAMS 058136 RxNo rm TAKE 2 MILLIGRAMS BY MOUTH Every 6 Hours As Needed Pantoprazole Sodium 40 MG Oral Tablet, Delayed Release 07/22/2021 Unknown BY MOUTH Twice A Day 40 MILLIGRAMS 782104 RxNorm TAKE 40 MILLIGRAMS BY MOUTH Twice A Day Sucralfate 1GM Oral Tablet 07/22/2021 Unknown BY [facility] TID AC 1 GRAM 108965 RxNorm TAKE 1 GRAM BY MOUTH TID AC Aspir 81 81MG Oral T ablet, Enteric Coated 07/22/2021 Unknown ORAL Once A Day 81 MILLIGRAMS 393775 RxNorm TAKE 81 MILLIGRAMS ORAL Once A Day Gabapentin 300MG Ora l Capsule 07/22/2021 Unknown ORAL Every 8 Hours 300 MILLIGRAMS 715952 RxNorm TAKE 300 MILLIGRAMS ORAL Every 8 Hours NovoLOG 100U/1ML Sub cutaneous Solution 07/22/2021 Unknown SUBCUTANEOUS Before Meals 30 UNITS 225641 RxNorm INJECT 30 UNITS SUBCUTANEOUS Before Meals Proscar 5MG Oral Tablet 07/22/2021 Unknown ORAL Once A Day 5 MILLIGRAMS 016672 RxNorm TAKE 5 M ILLIGRAMS ORAL Once A Day Tamsulosin HCl 0.4MG Oral Capsule 07/22/2021 Unknown ORAL Once A Day 0.4 MILLIGRAMS 923027 RxNorm TAKE 0.4 MILLIGRAMS ORAL Once A Day Lopressor 50MG Oral Tablet 07/22/2021 Unknown BY [facility] Twice A Day 0.5 TABLET 8 84339 RxNorm TAKE 0.5 TABLET BY MOUTH Twice A Day Reglan 5MG Oral Tablet 07/22/2021 Unknown BY MOUTH Before Meals and Bedtime 1 TABLET 225558 RxNorm TAKE 1 T ABLET BY MOUTH Before Meals and Bedtime DILTIAZEM 120MG XR C AP (CARDIZEM) 08/04/2021 Unknown ORAL BID 120 MG 337407 RxNorm 120 MG O RAL TWICE A DAY LOPERAMIDE CAP 2 MG (IMODIUM) 08/04/2021 Unknown ORAL PRN Q6H 2 MG 330177 RxNorm 2 MG ORAL EVERY 6HRS NEEDED PANTOPRAZOLE TAB 40 MG (PROTONIX) 08/04/2021 Unknown ORAL BID 40 MG 082421 RxNorm 40 MG ORAL TWICE A D AY SUCRALFATE TAB 1 GM (CARAFATE) 08/04/2021 08/19/2021 OR AL TID AC 1 GM 234145 RxNorm 1 GM ORA L 3X A DAY BEFORE MEAL PIOGLITAZONE TAB 15 MG (ACTOS) 08/04/2021 Unknown ORAL DAILY 15 MG 483868 RxNorm 15 MG ORAL ONCE A DA Y ASPIRIN ENTERIC COAT ED TAB 81 MG 08/04/2021 Unknown ORAL DAILY 81 MG 205364 RxNorm 81 MG ORAL ONCE A DA Y FUROSEMIDE TAB 40 MG (LASIX) 08/04/2021 Unknown ORAL DAILY 40 MG 383965 RxNorm 40 MG ORAL ONCE A DA Y GABAPENTIN CAP 300 M G (NEURONTIN) 08/04/2021 Unknown ORAL Q8H 300 MG 919379 RxNorm 300 MG ORAL EVERY 8 HOURS INSULIN ASPART FLEXP EN 100 UNITS/ML 08/04/2021 Unknown SUBCU TANEOUS OPTIONS AC 30 UNIT(S) 1122940 RxNorm 30 UNIT(S) SUBCUTANEOUS OPTIONS BEFORE MEALS FINASTERIDE TAB 5 MG (PROSCAR) 08/04/2021 Unknown ORAL DAILY 5 MG 888837 RxNorm 5 MG ORAL ONCE A DAY TAMSULOSIN CAP 0.4 M G (FLOMAX) 08/04/2021 08/06/2021 OR AL DAILY 0.4 MG 727595 RxNorm 0.4 MG O RAL ONCE A DAY METOPROLOL TAB 50 MG (LOPRESSOR) 08/04/2021 Unknown ORAL BID 0.5 TAB 966392 RxNorm 0.5 TAB ORAL TWICE A DAY METOCLOPRAMIDE TAB 5 MG (REGLAN) 08/04/2021 Unknown ORAL ACHS 1 TAB 318407 RxNorm 1 TAB ORAL BEFORE ME ALS/BEDTIME CITRATE OF MAGNESIA LIQUID 08/04/2021 08/04/2021 OR AL X1 296 ML 0009734 RxNorm 296 ML ORAL ONE TIME ONDANSETRON VIAL 4 M G/2ML (ZOFRAN) 08/04/2021 08/11/2021 IV PUSH PRN Q6H 4 MG 6561242 RxNorm 4 MG IV PUSH EVERY 6HRS NEEDED CALMOSEPTINE OINT TU BE (RISAMINE OINT) 08/04/2021 08/04/2021 TO PICAL X1 1 unit(s) RxNorm 1 EA TOP ICAL ONE TIME PROCHLORPERAZINE TAB 10 MG (COMPAZINE) 08/05/2021 08/12/2021 OR AL PRN Q8H 10 MG 046132 RxNorm 10 MG OR AL EVERY 8HRS NEEDED SERTRALINE TAB 50 MG (ZOLOFT) 08/05/2021 08/20/2021 OR AL DAILY 100 MG 234666 RxNorm 100 MG O RAL ONCE A DAY APIXABAN TAB 5 MG (E LIQUIS) 08/05/2021 08/19/2021 OR AL BID 5 MG 0422867 RxNorm 5 MG ORAL TWICE A DA Y CITRATE OF MAGNESIA LIQUID 08/05/2021 08/05/2021 OR AL X1 296 ML [id number] RxNorm 296 ML ORAL ONE TIME AZITHROMYCIN TAB 500 MG (ZITHROMAX) 08/05/2021 08/05/2021 OR AL X1 500 MG [id number] RxNorm 500 MG O RAL ONE TIME CALMOSEPTINE OINT TU BE (RISAMINE OINT) 08/05/2021 08/05/2021 TO PICAL X1 1 unit(s) RxNorm 1 EA TOP ICAL ONE TIME CALMOSEPTINE OINT TU BE (RISAMINE OINT) 08/05/2021 08/20/2021 TO PICAL PRN 1 APPLICATION [id number] 1 RxNorm 1 APPLIC ATION TOPICAL NEEDED MELATONIN TAB 3 MG 08/05/2021 09/04/2021 ORAL PRN QHS 3 MG RxNorm 3 MG ORAL BEDTIME NEEDED FUROSEMIDE VIAL 20 M G (LASIX VIAL) 08/06/2021 08/06/2021 IV PUSH X1 20 MG [id number] RxNorm 20 MG IV PUSH ONE TIME GUAIFENESIN TAB 600 MG (MUCINEX) 08/06/2021 08/21/2021 OR AL BID 600 MG [id number] RxNorm 600 MG O RAL TWICE A DAY AZITHROMYCIN TAB 250 MG (ZITHROMAX) 08/06/2021 08/16/2021 OR AL DAILY 250 MG [id number] RxNorm 250 MG O RAL ONCE A DAY ACETAMINOPHEN 325MG TAB (TYLENOL) 08/06/2021 08/20/2021 OR AL PRN Q4H 650 MG [id number] RxNorm 650 MG O RAL EVERY 4HRS NEEDED URO-JET (LIDOCAINE) GEL 2 % (UROJECT) 08/06/2021 08/06/2021 TO PICAL X1 5 ML [id number] RxNorm 5 ML TOP ICAL ONE TIME BETHANECHOL TAB 25 M G (URECHOLINE) 08/06/2021 09/05/2021 OR AL QID 25 MG [id number] RxNorm 25 MG OR AL FOUR TIMES A DAY TAMSULOSIN CAP 0.4 M G (FLOMAX) 08/06/2021 08/21/2021 OR AL BID 0.4 MG [id number] RxNorm 0.4 MG ORAL TWICE A DAY Acetaminophen 325MG Oral Tablet 08/07/2021 Unknown BY [facility] Every 4 hours as needed 650 MILLIGRA MS [id number] RxNorm TAKE 650 MILLIGRAMS BY MOUTH Every 4 hours as needed Eliquis 5MG Oral Tablet 08/07/2021 Unknown BY MOUTH Twice A Day 5 MILLIGRAMS [id number] RxNorm TAKE 5 M ILLIGRAMS BY MOUTH Twice A Day Bethanechol Chloride 25MG Oral Tablet 08/07/2021 Unknown BY [facility] Four Times A Day 25 MILLIGRAMS [id number] RxNorm TAKE 25 MILLIGRAMS BY MOUTH Four Times A Day Calmoseptine Topical application Ointment 08/07/2021 Unknown TOPIC AL APPLICATION As Needed 1 APPLICATION [id number] RxNorm APPLY 1 APPLICATION TOPICAL APPLICATION As Needed [facility] [employer] [facility] Mucus ER 600MG Oral Tablet, Extended Release 08/07/2021 Unknown BY MOUTH Twice A Day 600 MILLIGRAMS [id number] RxNorm TAKE 600 MILLIGRAMS BY MOUTH Twice A Day [facility] [employer] [facility] Melatonin 3 MG Oral Tablet 08/07/2021 Unknown BY MOUTH At Bedtime As Needed 3 MILLIGRAMS RxNorm TAKE 3 MILLIGRAMS BY MOUTH At Bedtime As Needed Ondansetron 2MG/1ML Injection Solution 08/07/2021 Unknown IV PU SH Every 6 Hours As Needed 4 MILLIGRAMS [id number] RxNorm 4 MILLIGRAMS IV PUSH Every 6 Hours As Needed Prochlorperazine Mal eate 10MG Oral Tablet 08/07/2021 Unknown BY MOUTH PRN Q8H 10 MILLIGRAMS [id number] RxNorm TAKE 10 MILLIGRAMS BY MOUTH PRN Q8H Sertraline HCl 50MG Oral Tablet 08/07/2021 Unknown BY MO UT Once A Day 100 MILLIGRAMS [id number] RxNorm TAKE 100 MILLIGRAMS BY MOUTH Once A Day Assessment You had the following problems: INFECTION WITH NEUTROPENIA UTI 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 Pt needs training for transfer safety with FWW to reduce his fall risk. Pt has poor activity tolerance for standing activities including gait. Pt's O2 sat decreased to 86% with 30ft of AMB requiring pt to return to seated posture to recovery. Pt needs assist to manage O2 cord during gait and cues to prevent LOB during turns with FWW during AMB. gait distance is limited to room AMB distance only due to poor tolerance for standing activities. Pt was positioned in R side lying with call light in reach when PT left the room. RN was notified of pt's functional status and fall risk status. Short Term Goals: 1. Pt will AMB 100ft with FWW and SBA with O2 use 2. Pt will transfer sit to stand with FWW and mod indep status without LOB 3. Pt will ascend/descend 5 steps with rails/AD with min A without LOB 4. Canadian Bacon Tier Goals: 1. Pt will be able to d/c to SNF rehab with FWW support. 2. 3. 4. Assessment: Pt able to perform bed mobility without difficulty. Pt able to maintain standing balance while donning/doffing brief for toileting with WBOS. Pt exhibits flexed posture with decreased foot clearance/stride. Pt exhibits slight SOA with activity, resists cues for pursed lip breathing. SpO2 desat to 84% with ambulation on 6lpm, recovered to 90% within 1 minute of seated rest break. Pt requires cues for safety awareness to avoid attempting to move chair on his own prior to sitting. Response to Treatment: Patient progressing toward goals well x Progress has been as expected Progress has been slower than expected Progress has been faster than expected Patient refused therapy Session shorter due to health reasons Session short due to time limit Other: Education: Pursed lip breathing. Safety awareness. Short Term Goal(s) Met: No Canadian Bacon Tier Goal(s) Met: No New Short Term Goal(s): N/A New Penitentiary Goal(s): N/A Hospital Discharge Instructions Should you have any questions prior to discharge, please contact a member of your healthcare team. If you have left the hospital and have any questions, please contact your primary care physician. DIET: CCD 3 CARB CHOICES/MEAL, Resume usual diet as tolerated. Discharge Diagnosis: Constipation/Weakness Post Discharge Equipment: N/A, All needed equipment present in home General Activity: Activity as per physical therapy. Wound/Operative Site Care: N/A Lifting/Weight-Bearing: May lift as tolerated, Weight-bearing as tolerated. Bathing: May shower. Driving: Must be cleared by Primary care doctor. Do not drive while taking narcotic med.. Notify Physician: Fever greater than 101 F (38 C), Pain unrelieved by medication. Nausea and/or vomiting, Persistent nausea, Persistent cough, Chest pain. Adverse reaction to medication, Questions/Uncertainty. Education: Diagnosis-related material, Given to and reviewed with patient. Ques. answered to david sun satisfaction. Patient's Belongings: Retained at bedside. Health Accessories: Retained at bedside. Medical Equipment: Did not bring. Personal Belongings: Retained items collected by patient. Pain Control Status/Pain Management: Adequate pain control. Systems Review/Physical Assessment: Afebrile, Orientation asymptomatic, Skin asymptomatic. Respiratory status asymptomatic, Eating asymptomatic/independent. Drinking asymptomatic/independent, Bowel elim. asymptomatic/independent. Mobility asymptomatic/independent. Reason For Referral No Data Found Procedures No Data Found Implants No Data Found Problems Problem Start Date Resol rosalind Date Status Code Code System INFECTION WITH NEUTROPENIA active 58264727 SNOMED-C T UTI ac tive 77703922 SNOMED-CT CANCER OF LUNG active 30987798 SNOMED-CT NAUSEA WITH VOMITING active 58632914 SNOMED-CT DEHYDRATION active 74068780 SNOMED-CT DVT OF LEG active 282888911 SNOMED-CT CONSTIPATION active 31922649 SNOMED-CT Allergies Allergy Substance Reaction Severity Start Date Concern Status Code Code System MORPHINE Active 7052 SNOMED-CT Plan of Treatment BLOOD CULTURE 08/04/2021 LOINC: 600-7 BLOOD CULTURE 08/04/2021 LOINC: 600-7 US ABDOMINAL COMPLETE 05/22/2021 Plan: Pt would benefit from skilled inpatient PT services to address decreased functional mobility and improve standing/gait activity tolerance. PT recommends d/c to SNF rehab at this time for continued endurance training prior to home discharge. PT POC: balance, transfers, gait training. Frequency: M-F BID Duration: 7 to 10 tx sessions in 5 days time Treatment: PT EVAL [id number] Consent: x Patient agrees to treatment x Patient cleared for eval by RN Patient / family agree to goals Plan: Continue with POC to improve functional mobility. Next Treatment Plan: Increase ambulation distance, step up Frequency: BID M-F Plan: Con't POC Encounters No Data Found Goals No Data Found Health Concerns Section No Data Found
--- OUTSIDE RECORDS SUMMARY | 2021-08-07 11:29 | XMS REPORT | Encounter Summary ---
Author Author [facility] Organization [facility] Address Unknown Phone Unavailable Care Team Providers Care Bevel Operator Name Role Phone Raven Da Silva DO PCP Encounter Details Care Team Description Date Type Department Jaziel Williamson MD [address] [place] [address] Malignant neoplasm of upper lobe of righ t lung (HCC) (Primary Dx) 06/10/2021 Orders Only Oncology: [facility] [address] [place] [address] Social History Date Tobacco Use Types Packs/Day [...] Recorded COVID-19 Exposure Response 05/23/2021 8:56 AM HEALTHCARE FINANCIAL ANALYST In the last month, have you been in contact with No / Unsure someone who was confirmed or suspected to have Coronavirus / COVID-19? documented as of this encounter Plan of Treatment Not on filedocumented as of this encounter Procedures Comments Procedure Name Priority Date/Time Associated Diag nosis RAD ONC TREATMENT Routine 06/10/2021 INFORMATION 1:50 PM HEALTHCARE FINANCIAL ANALYST documented in this encounter Results * (ABNORMAL) CBC AND DIFF (06/17/2021 12:36 PM HEALTHCARE FINANCIAL ANALYST) Pathologist [facility] White Blood 4.7 4.5 - 11.0 K/UL [facility] Cells RBC 4.08 (L) 4.4 - 5.5 M/UL [facility] Hemoglobin 12.5 (L) 13.5 - 16.5 GM/DL [facility] Hematocrit 37.5 (L) 40 - 50 % [facility] MCV 92.1 80 - 100 FL [facility] MCH 30.6 26 - 34 PG [facility] MCHC 33.2 32.0 - 36.0 G/DL [facility] RDW 18.7 (H) 11 - 15 % [facility] Platelet Count 102 (L) 150 - 400 K/UL [facility] MPV 8.2 7 - 11 FL [facility] Neutrophils 66 41 - 77 % [facility] Lymphocytes 22 (L) 24 - 44 % [facility] Monocytes 10 4 - 12 % [facility] Eosinophils 2 0 - 5 % [facility] Basophils 0 0 - 2 % [facility] Absolute 3.10 1.8 - 7.0 K/UL [facility] Neutrophil Count Absolute Lymph 1.10 1.0 - 4.8 K/UL [facility] Count Absolute 0.50 0 - 0.80 K/UL [facility] Monocyte Count Absolute 0.10 0 - 0.45 K/UL [facility] Eosinophil Count Absolute 0.00 0 - 0.20 K/UL [facility] Basophil Count Specimen Blood (substance) Performing Organization Address City/State/ZIP Code P ludy Number [facility] [address] [place] [address] * (ABNORMAL) COMPREHENSIVE METABOLIC PANEL (06/17/2021 12:36 PM HEALTHCARE FINANCIAL ANALYST) [facility] Sodium 139 137 - 147 MMOL/L [facility] Potassium 4.0 3.5 - 5.1 MMOL/L [facility] Chloride 105 98 - 110 MMOL/L [facility] Glucose 115 (H) 70 - 100 MG/DL [facility] Blood Urea 22 7 - 25 MG/DL [facility] Nitrogen Creatinine 1.22 0.4 - 1.24 MG/DL [facility] Calcium 8.9 8.5 - 10.6 MG/DL [facility] Total Protein 6.5 6.0 - 8.0 G/DL [facility] Total Bilirubin 1.3 (H) 0.3 - 1.2 MG/DL [facility] Albumin 3.9 3.5 - 5.0 G/DL [facility] Alk Phosphatase 106 25 - 110 U/L [facility] AST (SGOT) 17 7 - 40 U/L [facility] CO2 28 21 - 30 MMOL/L [facility] ALT (SGPT) 12 7 - 56 U/L [facility] Anion Gap 6 3 - 12 [facility] eGFR >60Comment: eGFR calculated >60 mL/min [facility] using the CKD-EPIcr_R equation Specimen Blood (substance) Performing Organization Address City/State/ZIP Code P ludy Number [facility] [address] [place] [address] * RAD ONC TREATMENT INFORMATION (06/10/2021 1:50 PM HEALTHCARE FINANCIAL ANALYST) Course ID [id number] [facility] RAD ONC TREATMENT [...] P ludy Number [facility] ONC TREAT[facility] documented in this encounter Visit Diagnoses Diagnosis Malignant neoplasm of upper lobe of rig ht lung (HCC) - Primary Malignant neoplasm of upper lobe, bronc hus or lung documented in this encounter Additional Health Concerns Noted Time Assessment 05/23/2021 9:02 AM HEALTHCARE FINANCIAL ANALYST A fall risk assessment has been complet ed for the patient 01/27/2019 11:20 AM CDT PHQ-2 Depression Total Score: 0 documented as of this encounter Care Teams Start Date End Date Bevel Operator Relationship Specialty 01/14/19 Raven Da Silva DO PCP - General Internal [address] [place] [address] documented as of this encounter
--- OUTSIDE RECORDS SUMMARY | 2021-08-07 11:29 | XMS REPORT | Encounter Summary ---
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) Bilateral hearing loss, unspecified hearing loss type Jaziel Williamson MD [address] [place] [address] [facility] [address], [address] [place] [address] Otolaryngology Referral ID Status Reason Start Date Expiration Visits Vi sits Date Requested Authorized [id number] Pending Specialty Services 06/17/2021 06/17/2022 1 1 Review Required Comments 76 M with recurrent lung cancer, has baseline hearing loss, wants hearing aid evaluation, please evaluate STORAGE SPECIALIST Reason for Visit * Reason Comments Follow Up Encounter Details Care Team Description Date Type Department Jaziel Williamson MD [address] [place] [address] Malignant neoplasm of upper lobe of righ t lung (HCC) (Primary Dx); Bilateral hearing loss, unspecified hearing loss type 06/17/2021 Office Visit Oncology: [facility] [address] [place] [address] Social History Date Tobacco Use Types Packs/Day [...] Recorded COVID-19 Exposure Response 06/17/2021 12:30 PM DATA STORAGE SPECIALIST In the last month, have you been in contact with No / Unsure someone who was confirmed or suspected to have Coronavirus / COVID-19? documented as of this encounter Last Filed Vital Signs Reading Time Taken Comments Vital Sign 127/47 06/17/2021 1:08 PM DATA STORAGE SPECIALIST Blood Pressure 74 06/17/2021 1:08 PM DATA STORAGE SPECIALIST Pulse 36.8 C (98.3 F) 06/17/2021 1:08 PM DATA STORAGE SPECIALIST Temperature - - Respiratory Rate 97% 06/17/2021 1:08 PM DATA STORAGE SPECIALIST Oxygen Saturation - - Inhaled Oxygen Concentration 159.8 kg (352 lb 6.4 oz) 06/17/2021 1:08 PM DATA STORAGE SPECIALIST Weight 200.7 cm (6' 7") 06/17/2021 1:08 PM DATA STORAGE SPECIALIST Height 39.7 06/17/2021 1:08 PM DATA STORAGE SPECIALIST Body Mass Index documented in this encounter [...] Progress Notes * Jaziel Williamson MD - 06/17/2021 1:40 PM DATA STORAGE SPECIALIST [facility] PATIENT'S NAME: Elian Gaffney DATE OF / AGE: 12 1945 / 76 y.o. 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 CURRENT TREATMENT: Pending discussion with Rad/Onc Dr. Ascencio PAST TREATMENT: - 03/2019: SBRT to initial [id number] IBNSCLC of the RUL - 06/04/21 to 06/12/21: SBRT to [address]R LN ONCOLOGY HISTORY: - Smoking history: smoked ~30 years on average 1-2 packs per day. But quitted 20 years ago. - 03/2019: SBRT to initial [id number] IBNSCLC of the RUL - 03/05/21: CT [...] 06/04/21 to 06/12/21: SBRT to [address]R LN INTERVAL HISTORY: Now s/p SBRT to mediastinal lymph node. His last dose of SBRT is today, he is tolerating radiation well. Breathing is overall stable. He has US of abdomen OSH on 05/22/21- showed prominent size with diffuse echogeni city, no biliary ductal dilation noted. PAST MEDICAL HISTORY: Medical History: Diagnosis Date COPD (chronic obstructive pulmonary disease) (HCC) Diabetes mellitus (HCC) Hypertension Malignant neoplasm of upper lobe of right lung (HCC) Pulmonary emboli (HCC) PAST SURGICAL HISTORY: Surgical History: Procedure Laterality Date TONSILLECTOMY 1957 DENTAL SURGERY 1958 COLOSTOMY 2000 CATARACT REMOVAL Left 2015 CHOLECYSTECTOMY 2018 BRONCHOSCOPY DIAGNOSTIC WITH CELL WASHING - FLEXIBLE N/A 01/31/2019 Performed by Demarco Gracia MD at [facility] OR BRONCHOSCOPY WITH TRANSBRONCHIAL LUNG BIOPSY - FLEXIBLE - SINGLE LOBE N/A Performed by Demarco Gracia MD at [facility] OR BRONCHOSCOPY WITH TRANSBRONCHIAL NEEDLE ASPIRATION AND BIOPSY TRACHEA/ MAIN STEM/ LOBAR BRONCHUS - FLEXIBLE N/A 01/31/2019 Performed by Demarco Gracia MD at [facility] OR BRONCHOSCOPY WITH ENDOBRONCHIAL ULTRASOUND GUIDED TRANSTRACHEAL/ TRANSBRONCH IAL SAMPLING - 3 OR MORE MEDIASTINAL/ HILAR LYMPH NODE STATIONS/ STRUCTURE - FLE XIBLE N/A 01/31/2019 Performed by Demarco Gracia MD at [facility] OR BRONCHOSCOPY DIAGNOSTIC WITH CELL WASHING - FLEXIBLE N/A 03/13/2021 Performed by Gregory Austin MD at [facility] OR BRONCHOSCOPY WITH TRANSBRONCHIAL LUNG BIOPSY - FLEXIBLE - SINGLE LOBE N/A Performed by Gregory Austin MD at [facility] OR BRONCHOSCOPY WITH TRANSBRONCHIAL NEEDLE ASPIRATION AND BIOPSY TRACHEA/ MAIN STEM/ LOBAR BRONCHUS - FLEXIBLE N/A 03/13/2021 Performed by Gregory Austin MD at [facility] OR BRONCHOSCOPY WITH ENDOBRONCHIAL ULTRASOUND GUIDED TRANSTRACHEAL/ TRANSBRONCH IAL SAMPLING - 3 OR MORE MEDIASTINAL/ HILAR LYMPH NODE STATIONS/ STRUCTURE - FLE XIBLE N/A 03/13/2021 Performed by Gregory Austin MD at [facility] OR ABDOMINAL EXPLORATION SURGERY BACK SURGERY [...] Former Smoker Quit date: 03/13/2001 Years since quittin.2 Smokeless tobacco: Never Used Vaping Use Vaping [...] other systems are negative. PHYSICAL EXAMINATION: Vitals: 06/17/21 1308 BP: 127/47 Pulse: 74 Temp: 36.8 C (98.3 F) SpO2: 97% ECOG performance status: 2 [...] RADIOLOGY: See above ASSESSMENT & PLANS: Initially [id number] IBNSCLC of the RULs/p SBRT in 03/2019, [...] for SBRT followed by adjuvant chemotherapy. - he will complete his SBRT today 06/17/20 - We discussed the option of adjuvant chemotherapy with Cisplatin and docetaxel. He already has baseline hearing dysfunction and is very concerned about preserv ation of his hearing function. So we discussed about alternate chemotherapy noemi men- Carboplatin + paclitaxel. - We referred him to ENT for hearing aid evaluation - We discussed the pros and cons of adjuvant chemotherapy. Carboplatin AUC 5 on day 1; paclitaxel 200 mg/m2 day 1 every 21 days for 4 cycles - The side effects of chemotherapy were discussed extensively with the patient t o include the following: Nausea, vomiting, diarrhea, renal failure/dysfunction, constipation, nerve damage/ peripheral neuropathy, mucositis, hair loss, myelosu ppression causing infection or requiring blood product transfusion and allergic reaction. Question were answered, consent was signed. He had opportunity to meet with the pharmacist to discuss the details of chemotherapy. - plan to start chemotherapy in about 3 weeks. - he is scheduled to see hepatology for evaluation of his elevated bilirubin. RTC in 3 weeks with labs. Patient seen and discussed with Dr. Clay Cancino, KARLO PGY 6- Hematology/Medical Oncology Fellow [facility] Pager- Above A/P were explained in detail to [...] of emergencies. --- Jaziel Williamson MD, PhD Continuity Clerk Division of Medical Oncology Department of Internal Medicine [facility] CC: Blake Ascencio MD STORAGE SPECIALIST documented in this encounter Plan of Treatment Order Schedule Name Type Priority Associated Diag noses Ordered: 06/17/2021 AMB REFERRAL TO ENT Outpatient Routine Malignant neoplasm of Referral upper lobe of right lung (HCC) Bilateral hearing loss, unspecified hearing loss type documented as of this encounter Visit Diagnoses Diagnosis Malignant neoplasm of upper lobe of rig ht lung (HCC) - Primary Malignant neoplasm of upper lobe, bronc hus or lung Bilateral hearing loss, unspecified hea ring loss type documented in this encounter Additional Health Concerns Noted Time Assessment 06/17/2021 1:08 PM DATA STORAGE SPECIALIST A fall risk assessment has been complet ed for the patient 01/27/2019 11:20 AM CDT PHQ-2 Depression Total Score: 0 documented as of this encounter Care Teams Start Date End Date Consumer Insight Analyst Relationship Specialty 01/14/19 Raven Da Silva DO PCP - General Internal [address] [place] [address] documented as of this encounter
--- OUTSIDE RECORDS SUMMARY | 2021-08-07 11:29 | XMS REPORT | Encounter Summary ---
Author Author [facility] Organization [facility] Address Unknown Phone Unavailable Care Team Providers Care Fireperson Name Role Phone Raven Da Silva DO PCP Reason for Referral * Consult, Test & Treat (Routine) - Pending Review Diagnoses / Procedures Referred By Contact Referred To Conta ct Specialty Diagnoses Malignant neoplasm of upper lobe of right lung (HCC) Fatty liver Jaziel Williamson MD [address] [place] [address] Mary Skaggs MD [address] [place] [address] Hepatology Referral ID Status Reason Start Date Expiration Visits Vi sits Date Requested Authorized [id number] Pending Specialty Services 06/10/2021 06/10/2022 1 1 Review Required Comments Lung cancer - elevated bilirubin. TRICIAN REFINERY Encounter Details Care Team Description Date [place] [address] [place] [address] Malignant neoplasm of upper lobe of righ t lung (HCC) (Primary Dx) 06/10/2021 Orders Only Oncology: [facility] [address] [place] [address] Social History Date Tobacco Use Types Packs/Day [...] Recorded COVID-19 Exposure Response 05/23/2021 8:56 AM ELECTRICIAN REFINERY In the last month, have you been in contact with No / Unsure someone who was confirmed or suspected to have Coronavirus / COVID-19? documented as of this encounter Plan of Treatment Order Schedule Name Type Priority Associated Diag noses Ordered: 06/10/2021 AMB REFERRAL TO Outpatient Routine Malignant neop lasm of GASTROENTEROLOGY Referral upper lobe of right lung (HCC) documented as of this encounter Visit Diagnoses Diagnosis Malignant neoplasm of upper lobe of rig ht lung (HCC) - Primary Malignant neoplasm of upper lobe, bronc hus or lung documented in this encounter Additional Health Concerns Noted Time Assessment 05/23/2021 9:02 AM ELECTRICIAN REFINERY A fall risk assessment has been complet ed for the patient 01/27/2019 11:20 AM CDT PHQ-2 Depression Total Score: 0 documented as of this encounter Care Teams Start Date End Date Fireperson Relationship Specialty 01/14/19 Raven Da Silva DO PCP - General Internal [address] [place], [place] [address] documented as of this encounter
--- OUTSIDE RECORDS SUMMARY | 2021-08-07 11:29 | XMS REPORT | Encounter Summary ---
Author Author [facility] Organization [facility] Address Unknown Phone Unavailable Care Team Providers Care Stoper Name Role Phone Raven Da Silva DO PCP Reason for Visit * Reason Comments On-treatment Encounter Details Care Team Description Date Type Department Blake Ascencio MD [address] [facility] [place] [address] Malignant neoplasm of upper lobe of righ t lung (HCC) (Primary Dx) 2021 Office Visit Radiation Oncology: [facility] [place] [address] [facility] [place] [address] Social History Date Tobacco Use Types Packs/Day [...] PM CDT Date Recorded COVID-19 Exposure Response 2021 1:00 PM REEL OPERATOR In the last month, have you been in contact with No / Unsure someone who was confirmed or suspected to have Coronavirus / COVID-19? documented as of this encounter Last Filed Vital Signs Reading Time Taken Comments Vital Sign 157/71 2021 1:53 PM REEL OPERATOR Blood Pressure 78 2021 1:53 PM REEL OPERATOR Pulse 36.5 C (97.7 F) 2021 1:53 PM REEL OPERATOR Temperature - - Respiratory Rate 93% 2021 1:53 PM REEL OPERATOR Oxygen Saturation - - Inhaled Oxygen Concentration 158.1 kg (348 lb 8.8 oz) 2021 1:53 PM REEL OPERATOR Weight 200.7 cm (6' 7") 2021 1:53 PM REEL OPERATOR Height 39.27 2021 1:53 PM REEL OPERATOR Body Mass Index documented in this encounter Progress Notes * Blake Ascencio MD - 2021 1:30 PM REEL OPERATOR Weekly Management Progress Note Date: 2021 Elian Gaffney is a 76 y.o. male. Vitals: Vitals: 06/12/21 1353 BP: (!) 157/71 BP Source: Arm, Left Upper Patient Position: Sitting Pulse: 78 Temp: 36.5 C (97.7 F) TempSrc: Temporal SpO2: 93% Weight: (!) 158.1 kg (348 lb 8.8 oz) Height: 200.7 cm (79") PainSc: Zero Subjective There were no encounter diagnoses. Staging: Cancer Staging Malignant neoplasm of upper lobe of right lung (HCC) Staging form: Lung, AJCC 8th Edition - Clinical: Stage IB (cT2a, cN0, cM0) - Signed by Blake Ascencio MD on 07/11/2019 Body mass index is 39.27 kg/m. Pain Score: Zero Fatigue Scale: 5 Treatment Data Summary: Treatment Data 04/04/2019 04/06/2019 04/08/2019 06/04/2021 06/06/2021 06/10/2021 2021 Course ID C1 Lung C1 Lung C1 Lung C2-Mediastinum C2-Mediastinum C2-Mediastinum C 2-Mediastinum Plan ID SBRT RUL LUNG SBRT RUL LUNG SBRT RUL LUNG RMediastiSBRT RMediastiSBRT RM ediastiSBRT RMediastiSBRT Prescription Dose (cGy) 5,000 5,000 5,000 5,000 5,000 5,000 5,000 Prescribed Dose per Fraction (Gy) 10 10 10 10 10 10 10 Fractions Treated to Date 3 4 5 1 2 3 4 Total Fractions on Plan 5 5 5 5 5 5 5 Treatment Elapsed Days 6 8 10 0 2 6 8 Reference Point ID PTV PTV PTV Rt Mediastinum Rt Mediastinum Rt Mediastinum Rt M ediastinum Dosage Given to Date (Gy) 29.10231915 39.99809424 49.29179356 10 20 30 40 Subjective: Doing well, he denies swallowing issues, worsening shortness of kathy ath, fever or chills Objective: NAD, VSS, lung clear to auscultation bilaterally Assessment: He tolerates treatment well so far Plan: - cont RT - all questions were answered - encourage the patient to contact us if fever or chills are present Beth Caldwell MD Radiation Oncology Resident, PGY-2 [facility] Pager # [phone] ATTESTATION I personally performed the keenan portions of the E/M visit, discussed case with re sident and concur with resident documentation of history, physical exam, assessm ent, and treatment plan unless otherwise noted. Staff name: Blake Ascencio MD Date: 06/16/2021 OPERATOR documented in this encounter Plan of Treatment Not on filedocumented as of this encounter Visit Diagnoses Diagnosis Malignant neoplasm of upper lobe of rig ht lung (HCC) - Primary Malignant neoplasm of upper lobe, bronc hus or lung documented in this encounter Additional Health Concerns Noted Time Assessment 2021 1:53 PM REEL OPERATOR A fall risk assessment has been complet ed for the patient 01/27/2019 11:20 AM CDT PHQ-2 Depression Total Score: 0 documented as of this encounter Care Teams Start Date End Date Stoper Relationship Specialty 01/14/19 Raven Da Silva DO PCP - General Internal [address] [place] [address] documented as of this encounter
--- OUTSIDE RECORDS SUMMARY | 2021-08-07 11:29 | XMS REPORT | Encounter Summary ---
Author Author [facility] Organization [facility] Address Unknown Phone Unavailable Care Team Providers Care Brand Mgr Name Role Phone Raven Da Silva DO PCP Encounter Details Care Team Description Date Type Department Interface, Aria Treatment Data 2021 Orders Only Radiation Oncology: [facility] [address] [place] [address] Social History Date Tobacco Use [...] Recorded COVID-19 Exposure Response 2021 1:00 PM COTA In the last month, have you been in contact with No / Unsure someone who was confirmed or suspected to have Coronavirus / COVID-19? documented as of this encounter Plan of Treatment Not on filedocumented as of this encounter Procedures Comments Procedure Name Priority Date/Time Associated Diag nosis RAD ONC TREATMENT Routine 2021 INFORMATION 1:18 PM COTA documented in this encounter Results * RAD ONC TREATMENT INFORMATION (2021 1:18 PM COTA) Course ID C2-Mediastinum KU RAD ONC TREATMENT [...] TREATMENT documented in this encounter Visit Diagnoses Not on filedocumented in this encounter Additional Health Concerns Noted Time Assessment 2021 1:53 PM COTA A fall risk assessment has been complet ed for the patient 01/27/2019 11:20 AM CDT PHQ-2 Depression Total Score: 0 documented as of this encounter Care Teams Start Date End Date Brand Mgr Relationship Specialty 01/14/19 Raven Da Silva DO PCP - General Internal [address] [place] [address] documented as of this encounter
--- OUTSIDE RECORDS SUMMARY | 2021-08-07 11:29 | XMS REPORT | Encounter Summary ---
Author Author [facility] Organization [facility] Address Unknown Phone Unavailable Care Team Providers Care Water Project Manager Name Role Phone Raven Da Silva DO PCP Encounter Details Care Team Description Date Type Department 2021 Travel Social History Date Tobacco Use Types [...] Recorded COVID-19 Exposure Response 2021 1:00 PM [employer] [employer] In the last month, have you been in contact with No / Unsure someone who was confirmed or suspected to have Coronavirus / COVID-19? documented as of this encounter Plan of Treatment Not on filedocumented as of this encounter Visit Diagnoses Not on filedocumented in this encounter Additional Health Concerns Noted Time Assessment 2021 1:53 PM [facility] [employer] A fall risk assessment has been complet ed for the patient 01/27/2019 11:20 AM CDT PHQ-2 Depression Total Score: 0 documented as of this encounter Care Teams Start Date End Date Water Project Manager Relationship Specialty 01/14/19 Raven Da Silva DO PCP - General Internal [address] [place] [address] documented as of this encounter
[2021-08-07 12:24] VITALS: BP 129/60
[2021-08-07] MEDS: inSUlin ASPART (NovoLOG) 1 UNIT/0.01 ML (CHARGE PER UNIT) SC SCH ×4 (12:40→22:15)
[2021-08-07] MEDS: CEFEPIME 1,000 MG/NS 50 ML IVPB IV SCH ×6 (12:40→23:50)
[2021-08-07] MEDS: methylPREDNISolone 125 MG (Solu-MEDROL) VIAL IVP SCH ×3 (12:40→23:51)
--- NOTE | 2021-08-07 12:55 | Diagnostic Imaging Report ---
INDICATION: Shortness of breath. TECHNIQUE/COMPARISON: A frontal chest was obtained at 12:32 PM and compared to 12/14/2018. FINDINGS: There is cardiomegaly. There is patchy infiltrate in the left perihilar region as well as in the right upper lobe, right perihilar region, and right base. There is a small amount of pleural fluid on the right side. There is no pneumothorax. IMPRESSION: Cardiomegaly. There are bilateral infiltrates as above, right greater than left, suspicious for pneumonia. There is a small right pleural effusion. Dictated by: Dictated on workstation # [id number]
[2021-08-07 13:16] LABS: EOSINOPHILS # (AUTO) 0.1 10^3/uL (0.0-0.3); EOSINOPHILS % (AUTO) 1 % (0-10); MEAN CORPUSCULAR HGB CONC 30 g/dL (32-36)
[2021-08-07 13:18] LABS: BASOPHILS % (AUTO) 1 % (0-10); HEMATOCRIT 28 % (40-54); HEMOGLOBIN 8.4 g/dL (13.3-17.7); LYMPHOCYTES # (AUTO) 0.5 10^3/uL (1.0-4.0); LYMPHOCYTES % (AUTO) 14 % (12-44); MEAN CORPUSCULAR HEMOGLOBIN 30 pg (25-34); MEAN CORPUSCULAR VOLUME 100 fL (80-99); MEAN PLATELET VOLUME 11.1 fL (9.0-12.2); MONOCYTES # (AUTO) 0.5 10^3/uL (0.0-1.0); MONOCYTES % (AUTO) 13 % (0-12); NEUTROPHILS # (AUTO) 2.6 10^3/uL (1.8-7.8); NEUTROPHILS % (AUTO) 71 % (42-75); PLATELET COUNT 89 10^3/uL (130-400); WHITE BLOOD COUNT 3.7 10^3/uL (4.3-11.0)
--- NOTE | 2021-08-07 13:28 | History & Physical ---
TAY JASSO 08/07/21 1328: History of Present Illness History of Present Illness Reason for visit/HPI CC: PNA s/p Hospitalization HPI: Elian Gaffney is a 76yoM with PMHx of Lung Cancer s/p Radiation & Chemotherapy, COPD, DM, HTN, and BPH who was transferred from [facility]. He was admitted there following an episode of obstipation after receiving his first round of chemotherapy for treatment of his lung cancer. His obstipation was treated and resolved while in [place]; however he subsequently developed pneumonia, thus prompting his transfer to [facility] [place] in [place]. He was stable with no dyspnea or shortness of breath on 4L via high- flow nasal cannula on arrival. He endorsed his last bowel movement the day prior to transfer and had a barton catheter in place. Upon admission, he was noted to have a rhythm strip demonstrating atrial flutter. Cardiology was consulted. In addition, he was started on Eliquis following his lung cancer treatment. He denies chest pain, palpitations, nausea, vomiting, constipation, diarrhea, and abdominal pain. Date of Admission Aug 07, 2021 at 11:18 Date Seen by a Provider: Aug 07, 2021 Time Seen by a Provider: 13:15 I consulted on this patient on 08/07/21 13:20 Attending Physician Raven Ngo DO Admitting Physician Raven Ngo DO Consult Allergies and Home Medications Allergies Coded Allergies: No Known Drug Allergies (Unverified , 11/26/18) Patient Home Medication List Home Medication List Reviewed: Yes Albuterol Sulfate (Proair Hfa) 1 Puff Puff, 2 PUFF INH Q4H PRN for SHORTNESS OF BREATH, (Reported) Entered as Reported by: MICH GIVENS on 11/26/18 1043 Aspirin (Aspirin EC) 81 Mg Tablet.dr, 81 MG PO DAILY, (Reported) Entered as Reported by: MICH GIVENS on 11/26/18 1039 Last Action: Reviewed Bethanechol Chloride (Urecholine) 10 Mg Tablet, 10 MG PO ACHS Prescribed by: RAVEN NGO on 12/11/18 1224 C,E,Zinc,Copper 11/Cdfbr8l/Lut (Ocuvite Adult 50 Plus Softgel) 1 Each Capsule, 1 CAP PO DAILY, (Reported) Entered as Reported by: MICH GIVENS on 11/26/18 1039 Cetirizine HCl (Cetirizine HCl) 10 Mg Tablet, 10 MG PO DAILY, (Reported) Entered as Reported by: MICH GIVENS on 11/26/18 1039 Last Action: Reviewed Cyanocobalamin (Vitamin B-12) (Vitamin B-12) 2,000 Mcg Tablet, 2,000 MCG PO DAILY, (Reported) Entered as Reported by: MICH GIVENS on 11/26/18 1039 Finasteride (Finasteride) 5 Mg Tablet, 5 MG PO DAILY, (Reported) Entered as Reported by: MICH GIVENS on 11/26/18 1025 Last Action: Reviewed Glycopyrrolate/Formoterol Fum (Bevespi Aerosphere Inhaler) 10.7 Gm Hfa.aer.ad, 2 PUFF INH BID, (Reported) Entered as Reported by: MICH GIVENS on 11/26/18 1028 Last Action: Reviewed Insulin Glargine,Hum.rec.anlog (Lantus) 100 Unit/1 Ml Vial, 80 UNITS SC HS, (Reported) Entered as Reported by: MICH GIVENS on 11/26/18 1025 Insulin Glargine,Hum.rec.anlog (Lantus) 100 Unit/1 Ml Vial, 40 UNIT SQ DAILY, (Reported) Entered as Reported by: MICH GIVENS on 11/26/18 1028 Insulin Lispro (Humalog) 100 Unit/1 Ml Vial, 30 UNITS SC TIDAC, (Reported) Entered as Reported by: MICH GIVENS on 11/26/18 1028 Meloxicam (Meloxicam) 7.5 Mg Tablet, 7.5 MG PO DAILY, (Reported) Entered as Reported by: MICH GIVENS on 11/26/18 1039 Metoprolol Succinate (Metoprolol Succinate) 50 Mg Tab.er.24h, 50 MG PO DAILY Prescribed by: RAVEN NGO on 12/08/18 1051 Pantoprazole Sodium (Protonix) 40 Mg Tablet.dr, 40 MG PO DAILY Prescribed by: JABIER ALVARENGA on 10/09/20 0939 Last Action: Reviewed Sertraline HCl (Sertraline HCl) 100 Mg Tablet, 100 MG PO DAILY, (Reported) Entered as Reported by: MICH GIVENS on 11/26/18 1039 Last Action: Reviewed Tamsulosin HCl (Flomax) 0.4 Mg Cap, 0.4 MG PO DAILY, (Reported) Entered as Reported by: MICH GIVENS on 11/26/18 1025 Last Action: Reviewed Past Vsjkyal-Nqjcqb-Ialcvp Hx Patient Social History Tobacco Use?: No Tobacco type used: Cigarettes Smoking Status: Former Smoker Use of E-Cig and/or Vaping dev: No Substance use?: No Alcohol Use?: No Immunizations Up To Date PED Vaccines UTD: Yes Date of Pneumonia Vaccine: Mar 28, 2017 Seasonal Allergies Seasonal Allergies: No Current Status Primary Language: Andorran Past Medical History Surgeries: Abdominal, Orthopedic Pneumonia, Pulmonary Embolism, COPD Currently Using CPAP: No (has one but doesn't use) Hypertension Sexually Transmitted Disease: No HIV/AIDS: No Benign Prostatic Hyperpl, Bladder Infection, Kidney Stones Abdominal Hernia, Diverticulosis, Gall Bladder Disease Arthritis, Fractures Diabetes, Insulin dep Cataract, Tinnitis Loss of Vision: Bilateral Hearing Impairment: Hard of Hearing Lung Did You Recieve Any Treatments: Yes What Type of Treatment Did You: Chemotherapy, Radiation Sleep Difficulties Blood Disorders: No Adverse Reaction/Blood Tranf: No Family Medical History Patient reports no known family medical history. No Pertinent Family Hx Review of Systems Constitutional: no symptoms reported, see HPI EENTM: no symptoms reported Respiratory: see HPI, dyspnea on exertion, phlegm, short of breath; No stridor Cardiovascular: no symptoms reported, see HPI Gastrointestinal: no symptoms reported; No abdominal pain, No constipation, No diarrhea Genitourinary: no symptoms reported Musculoskeletal: no symptoms reported Skin: no symptoms reported Psychiatric/Neurological: No Symptoms Reported Physical Exam Vital Signs Vital Signs - First Documented 08/07/21 08/07/21 12:21 12:24 Temp 36.5 Pulse 59 Resp 20 B/P (MAP) 129/60 (83) Pulse Ox 98 O2 Delivery High Flow N/C O2 Flow Rate 4.00 Capillary Refill : Height, Weight, BMI Height: 6'7.00" Weight: 354lbs. 8.0oz. 160.902014xp; 39.46 BMI Method:Stated General Appearance: No Apparent Distress, Obese HEENT: PERRL/EOMI, Pharynx Normal, Moist Mucous Membranes Neck: Full Range of Motion, Normal Inspection, Non Tender, Supple Respiratory: Chest Non Tender, Normal Breath Sounds (RUL, FIDENCIO, LLL), No Accessory Muscle Use, No Respiratory Distress, Decreased Breath Sounds (RLL) Cardiovascular: No Edema, No Gallop, No JVD, No Murmur, Normal Peripheral Pulses, Irregularly Irregular Gastrointestinal: Normal Bowel Sounds, Non Tender, Soft Rectal: Deferred Back: Normal Inspection Extremity: Normal Capillary Refill, Normal Inspection, Normal Range of Motion, Non Tender, No Calf Tenderness Neurologic/Psychiatric: Alert, Oriented x3, No Motor/Sensory Deficits, Normal Mood/Affect, bioinformatics scientist II-XII Norm as Tested Skin: Normal Color, Warm/Dry Lymphatic: No Adenopathy Assessment/Plan Assessment and Plan Assessment: Hospital Acquired Pneumonia Hx Lung Cancer s/p Radiation & 1st Round of Chemotherapy Probable Atrial Fibrillation/Flutter Leukocytopenia Thrombocytopenia Elevated Total Bilirubin COPD IDDM HTN BPH Obesity Plan: Cefepime Q6HR Solumedrol Q6HR Duoneb RTQ4HR Sputum Culture Cardiology consulted EKG & Echo pending SSI PT/OT Problems: (1) Pneumonia (2) Lung cancer (3) COPD (chronic obstructive pulmonary disease) (4) BPH (benign prostatic hyperplasia) (5) Atrial flutter (6) Diabetes mellitus, insulin dependent (IDDM), controlled Status: Chronic (7) Hypertension Status: Chronic (8) GERD (gastroesophageal reflux disease) Status: Chronic (9) Obesity Admission Diagnosis Pneumonia Admission Status: Inpatient Order (span 2 midnights) Reason for Inpatient Admission: IV antibiotics Cardiology evaluation and management RAVEN NGO 08/08/21 0615: History of Present Illness History of Present Illness Reason for visit/HPI CC: SOB HPI: This is a 76-year-old white male clinic pt of mine who presented as a transfer from [facility] after worsening SOB and elevated BNP in need of cardiology higher level of care. He remained on 2-3L of oxygen since last hospitalized the week before, when he was admitted for weakness and UTI. He returned this time for severe constipation and generalized weakness. He had received a unit of blood the week before. Chemotherapy had just been started for lung cancer. Patient was transition from Lovenox for left lower extremity DVT to Eliquis during the [facility] stay due to recent new onset A. fib episode the week before during his hospital stay. He is at this current time assessed and found to have findings consistent with pneumonia facility acquired. Antibiotic regimen initiated. Septic workup completed. Echocardiogram ordered and Dr. Curiel consulted. Allergies and Home Medications Allergies Coded Allergies: No Known Drug Allergies (Unverified , 11/26/18) Patient Home Medication List Home Medication List Reviewed: Yes Albuterol Sulfate (Proair Hfa) 1 Puff Puff, 2 PUFF INH Q4H PRN for SHORTNESS OF BREATH, (Reported) Entered as Reported by: MICH GIVENS on 11/26/18 1043 Aspirin (Aspirin EC) 81 Mg Tablet.dr, 81 MG PO DAILY, (Reported) Entered as Reported by: MICH GIVENS on 11/26/18 1039 Last Action: Reviewed Bethanechol Chloride (Urecholine) 10 Mg Tablet, 10 MG PO ACHS Prescribed by: RAVEN NGO on 12/11/18 1224 C,E,Zinc,Copper 11/Shqjr1w/Lut (Ocuvite Adult 50 Plus Softgel) 1 Each Capsule, 1 CAP PO DAILY, (Reported) Entered as Reported by: MICH GIVENS on 11/26/18 1039 Cetirizine HCl (Cetirizine HCl) 10 Mg Tablet, 10 MG PO DAILY, (Reported) Entered as Reported by: MICH GIVENS on 11/26/18 1039 Last Action: Reviewed Cyanocobalamin (Vitamin B-12) (Vitamin B-12) 2,000 Mcg Tablet, 2,000 MCG PO DAILY, (Reported) Entered as Reported by: MICH GIVENS on 11/26/18 1039 Finasteride (Finasteride) 5 Mg Tablet, 5 MG PO DAILY, (Reported) Entered as Reported by: MICH GIVENS on 11/26/18 1025 Last Action: Reviewed Glycopyrrolate/Formoterol Fum (Bevespi Aerosphere Inhaler) 10.7 Gm Hfa.aer.ad, 2 PUFF INH BID, (Reported) Entered as Reported by: MICH GIVENS on 11/26/18 1028 Last Action: Reviewed Insulin Glargine,Hum.rec.anlog (Lantus) 100 Unit/1 Ml Vial, 80 UNITS SC HS, (Reported) Entered as Reported by: MICH GIVENS on 11/26/18 1025 Insulin Glargine,Hum.rec.anlog (Lantus) 100 Unit/1 Ml Vial, 40 UNIT SQ DAILY, (Reported) Entered as Reported by: MICH GIVENS on 11/26/18 1028 Insulin Lispro (Humalog) 100 Unit/1 Ml Vial, 30 UNITS SC TIDAC, (Reported) Entered as Reported by: MICH GIVENS on 11/26/18 1028 Meloxicam (Meloxicam) 7.5 Mg Tablet, 7.5 MG PO DAILY, (Reported) Entered as Reported by: MICH GIVENS on 11/26/18 1039 Metoprolol Succinate (Metoprolol Succinate) 50 Mg Tab.er.24h, 50 MG PO DAILY Prescribed by: RAVEN NGO on 12/08/18 1051 Pantoprazole Sodium (Protonix) 40 Mg Tablet.dr, 40 MG PO DAILY Prescribed by: JABIER ALVARENGA on 10/09/20 0939 Last Action: Reviewed Sertraline HCl (Sertraline HCl) 100 Mg Tablet, 100 MG PO DAILY, (Reported) Entered as Reported by: MICH GIVENS on 11/26/18 1039 Last Action: Reviewed Tamsulosin HCl (Flomax) 0.4 Mg Cap, 0.4 MG PO DAILY, (Reported) Entered as Reported by: MICH GIVENS on 11/26/18 1025 Last Action: Reviewed Past Owqmbns-Sxemou-Lxjljm Hx Patient Social History Marrital Status: Employed/Student: retired Tobacco type used: Cigarettes Smoking Status: Former Smoker Use of E-Cig and/or Vaping dev: No Alcohol Use?: No Past Medical History Surgeries: Abdominal Pneumonia, Sleep Apnea, COPD Atrial Fibrillation, High Cholesterol, Hypertension Neuropathy Benign Prostatic Hyperpl, Kidney Infection, Bladder Infection, Renal Failure, Neurogenic Bladder Gastroesophageal Reflux, Cirrhosis Arthritis, Chronic Back Pain Diabetes, Insulin dep Lung Did You Recieve Any Treatments: Yes What Type of Treatment Did You: Chemotherapy, Radiation Depression Blood Disorders: No Adverse Reaction/Blood Tranf: No Family Medical History Patient reports no known family medical history. Review of Systems Constitutional: see HPI, malaise, weakness EENTM: no symptoms reported Respiratory: dyspnea on exertion, short of breath, wheezing Cardiovascular: no symptoms reported Gastrointestinal: no symptoms reported Genitourinary: other (Retention) Musculoskeletal: no symptoms reported Skin: no symptoms reported Psychiatric/Neurological: No Symptoms Reported Physical Exam General Appearance: WD/WN, Anxious, Chronically ill, Mild Distress, Obese Eyes: Bilateral Eye Normal Inspection, Bilateral Eye PERRL, Bilateral Eye EOMI HEENT: PERRL/EOMI, Normal ENT Inspection, Pharynx Normal Neck: Full Range of Motion, Normal Inspection, Non Tender, Supple, Carotid Bruit Respiratory: Chest Non Tender, Lungs Clear, No Accessory Muscle Use, No Respiratory Distress, Decreased Breath Sounds (RLL) Cardiovascular: No Gallop, No JVD, No Murmur, Normal Peripheral Pulses, Irregularly Irregular Gastrointestinal: Normal Bowel Sounds, No Organomegaly, No Pulsatile Mass, Non Tender, Soft Back: Normal Inspection, No CVA Tenderness, No Vertebral Tenderness Extremity: Normal Capillary Refill, Normal Inspection, Normal Range of Motion, Non Tender, No Calf Tenderness, Pedal Edema Neurologic/Psychiatric: Alert, Oriented x3, No Motor/Sensory Deficits, Normal Mood/Affect, bioinformatics scientist II-XII Norm as Tested Skin: Normal Color, Warm/Dry Lymphatic: No Adenopathy Assessment/Plan Assessment and Plan Assessment: Hospital-acquired pneumonia placed on meropenem and vancomycin Acute on chronic respiratory failure Hypercapnia on ABG from [facility] 7.3 Supplemental oxygen at home COPD JULIAN noncompliant with CPAP BPH Urinary retention requiring Barton catheter Chronic UTIs Lung cancer status post 1 round of chemotherapy 4 weeks ago Severe anemia requiring 1 unit of blood last week on 07/30/2021 Status post severe constipation now resolved Cirrhosis has appoint with hematology Dr. Skaggs at on 08/19/2021 Thrombocytopenia Leukopenia Hypertension Hyperlipidemia Atrial fibrillation diagnosis during previous hospital stay 2 weeks ago transition to [facility] this hospital stay and DC Lovenox Left lower extremity DVT status post Lovenox treatment now on Eliquis Morbid obesity BMI 41 Marlon filter placement 20 years ago Gastrointestinal perforation 20 years ago requiring extensive surgery Plan: IV antibiotics Nebulizers Cardiology consult [facility] half-way at discharge to [place] Supervisory-Addendum Brief Verification & Attestation Participated in pt care: history, MDM, physical Personally performed: exam, history, MDM, supervision of care Care discussed with: Medical Student Procedures: n/a Results interpretation: Verified all documentation Verification and Attestation of Medical Student E/M Service A medical student performed and documented this service in my presence. I reviewed and verified all information documented by the medical student and made modifications to such information, when appropriate. I personally performed the physical exam and medical decision making. Raven Ngo, Aug 08, 2021,06:07 TAY JASSO Aug 07, 2021 13:28 RAVEN NGO DO Aug 08, 2021 06:15
[2021-08-07 13:34] LABS: ALBUMIN 3.4 GM/DL (3.2-4.5); CALCIUM 8.6 MG/DL (8.5-10.1); CREATININE SERUM 0.88 MG/DL (0.60-1.30); POTASSIUM 4.3 MMOL/L (3.6-5.0); TOTAL PROTEIN 6.1 GM/DL (6.4-8.2)
--- NOTE | 2021-08-07 14:15 | Occupational Therapy Eval ---
OT Evaluation-General/PLF Medical Diagnosis Admission Date Aug 07, 2021 at 11:18 Medical Diagnosis: pneumonia s/p chemotherapy Onset Date: Aug 07, 2021 Therapy Diagnosis Therapy Diagnosis: reduced adl status Height/Weight Height (Feet): 6 Height (Inches): 7.00 Weight (Pounds): 354 Weight (Ounces): 8.0 Precautions Precautions/Isolations: Fall Prevention, Standard Precautions Referral Physician: Avinash Referral Reason: Evaluation/Treatment Medical History Pertinent Medical History: COPD, DM, HTN Additional Medical History lung caner, pt received 1st dose of chemotherapy ~1 month prior Current History Pt reports constipation after receiving 1st round of chemo for treatment of lung cancer. Constipation was treated but soon after pt developed pneumonia. He re ports he was sent home on oxygen ~1 week ago and was on 4L. He lives with his in a single story home. He was indep with adls and does all the iadls as his is in a wheelchair. Pt states that he stopped driving after receiving chemo and his daughter now assists with transportation. When pain is present he will use a cane, but otherwise uses no AD. Reviewed History: Yes Social History Home: Single Level Current Living Status: Spouse Entry Into Home: Stairs Without Railing Steps Into Home: 1 (1 step from garage) ADL-Prior Level of Function SCALE: Activities may be completed with or without assistive devices. 2-Eqwryzsuch-vwmyust completes the activity by him/herself with no assistance from a helper. 5-Set-up or Clean-up Assistance-helper sets up or cleans up; patient completes activity. Laramie assists only prior to or following the activity. 4-Supervision or Touching Assistance-helper provides verbal cues and/or touching/steadying and/or contact guard assistance as patient completes activity. Assistance may be provided throughout the activity or intermittently. 3-Partial/Moderate Assistance-helper does LESS THAN HALF the effort. Laramie lifts, holds or supports trunk or limbs, but provides less than half the effort. 2-Substantial/Maximal Assistance-helper does MORE THAN HALF the effort. [place]amie lifts or holds trunk or limbs and provides more than half the effort. 7-Esvgxkuwl-clckfx does ALL the effort. Patient does none of the effort to complete the activity. Or, the assistance of 2 or more helpers is required for the patient to complete the activity. If activity was not attempted, code reason: 7-Patient Refused. 9-Not Applicable-not attempted and the patient did not perform the activity before the current illness, exacerbation or injury. 10-Not Attempted due to Environmental Limitations-(lack of equipment, weather restraints, etc.). 88-Not Attempted due to Medical Conditions or Safety Concerns. Self Care: Independent Functional Cognition: Independent DME/Equipment: Bath Bench, Grab Bars, Shower OT Current Status Subjective Pt reports fatigue and SOB with rest. Appearance Pt returned to sitting in chair, all needs within reach. RN entering room. Mental Status/Objective Patient Orientation: Person, Place, Situation Attachments: IV, Oxygen Current Glasses/Contacts: Yes Hearing Aids: No Upper Extremity ROM extra time to achieve full L shoulder ROM but otherwise WNL Upper Extremity Strength L shoulder not tested due to c/o pain R shoulder: WNL ADL-Treatment Lower Body Dressing (QC): 4 On/Off Footwear (QC): 1 Pt sitting in recliner at OT arrival. Dependent to don bilateral socks secondary to SOB when bending. Extra time to recover. Pt unable to perform cross over method. Prior to standing, OT notices dried blood on outside of brief. Pt reports that he has been asking to change but nobody has helped him. He was able to thread zuhair feet into brief with extra effort. Min a to stand. Once standing, CGA for safety as he stood to pull brief over hips. Pt able to take 1 step forward and back. Exhibits significant SOB with prolong standing, (~45 seconds). Edema present in bilateral LE's. Lengthy rest break with cues for PLB needed after minimal activity. Pt could benefit from energy conservation strategies and adaptive equipment. Education OT Patient Education: Correct positioning, Energy conservation, Modified ADL techniques, Progress toward Goal/Update tx plan, Purpose of tx/functional activities, Rehab process, Safety issues, Transfer techniques Teaching Recipient: Patient Teaching Methods: Demonstration, Discussion Response to Teaching: Verbalize Understanding, Return Demonstration, Reinforcement Needed OT Long-Term Goals Long-Term Goals Time Frame: Aug 23, 2021 Eating (QC): 6 Oral Hygiene (QC): 5 Toileting Hygiene (QC): 6 Shower/Bathe Self (QC): 4 Upper Body Dressing (QC): 5 Lower Body Dressing (QC): 5 On/Off Footwear (QC): 3 1=Demonstrate adherence to instructed precautions during ADL tasks. 2=Patient will verbalize/demonstrate understanding of assistive devices/modifications for ADL. 3=Patient will improve strength/tolerance for activity to enable patient to perform ADL's. OT Education/Plan Problem List/Assessment Assessment: Decreased Activ Tolerance, Edema, Impaired Funct Balance, Impaired I ADL's, Impaired Self-Care Skills Discharge Recommendations Plan/Recommendations: Continue POC Therapy Discharge Recommendati: Post Acute OT (ongoing assessment, HH pending progress) Treatment Plan/Plan of Care Treatment,Training & Education: Yes Patient would benefit from OT for education, treatment and training to promote independence in ADL's, mobility, safety and/or upper extremity function for ADL's. Plan of Care: ADL Retraining, Functional Mobility, Group Exercise/Act as Ind, UE Funct Exercise/Act Treatment Duration: Aug 23, 2021 Frequency: 3 times per week (3-5x/week) Estimated Hrs Per Day: .25 hour per day Agreement: Yes Time/GCodes Start Time: 13:48 Stop Time: 14:05 Total Time Billed (hr/min): 17 Billed Treatment Time 1 visit Yovana Quiros OT Aug 07, 2021 14:15
--- NOTE | 2021-08-07 14:28 | Consultation-Cardiology ---
HPI-Cardiology Cardiology Consultation: Date of Consultation 08/07/21 Time Seen by a Provider: 14:45 Date of Admission 08-07-21 Attending Physician Raven Ngo DO Admitting Physician Raven Ngo DO Consulting Physician Florencio Curiel MD HPI: Chief Complaint: SOB Elevated troponin Mr. Gaffney is a 76 yr old male [place] [id number] [place] [facility] He reports he was admitted [place] [facility] [place] week ago d/t bowel obstruction. He states that has improved, however he developed increasing SOB and was found to have developed pneumonia. He reports he feels his SOB is better, but still present. He states he has lung cancer which he is following with [facility]. He states he has recently started chemo tx, but has only had 1 tx d/t weakness/illness. He states he has worsening LE swelling. He reports he follows with Dr. Ford of [place] [facility]. He reports he is on Eliquis. He denies any palpitations. No c/o syncope or near syncope. He reports he feels he has abdominal bloating. Review of Systems-Cardiology Review of Systems Constitutional: No chills; malaise, tiredness Eyes: No vision change Ears/Nose/Throat: No epistaxis, No recent hearing loss Respiratory: As described under HPI Cardiovascular: As described under HPI Gastrointestinal: As described under HPI Genitourinary: other (urniary catheter in place) Musculoskeletal: joint pain Skin: No rash on exposed areas, No ulcerations on exposed areas Psychiatric/Neurological: No anxiety, No depression, No focal weakness, No syncope Hematologic: No bleeding abnormalities MGE-Wdgbkh-Hmfgxn Hx Patient Social History Smoking Status: Former Smoker 2nd Hand Smoke Exposure: No Alcohol Use?: No Tobacco type used: Cigarettes Immunizations Up To Date Tetanus Booster (TDap): Unknown Date of Pneumonia Vaccine: Mar 28, 2017 Past Medical History PMH As described under Assessment. Family Medical History Family Medical History: No reported family h/o CAD Family History: Patient reports no known family medical history. Allergies and Home Medications Allergies Coded Allergies: No Known Drug Allergies (Unverified , 11/26/18) Patient Home Medication List Albuterol Sulfate (Proair Hfa) 1 Puff Puff, 2 PUFF INH Q4H PRN for SHORTNESS OF BREATH, (Reported) Entered as Reported by: MICH GIVENS on 11/26/18 1043 Aspirin (Aspirin EC) 81 Mg Tablet.dr, 81 MG PO DAILY, (Reported) Entered as Reported by: MICH GIVENS on 11/26/18 1039 Last Action: Reviewed Bethanechol Chloride (Urecholine) 10 Mg Tablet, 10 MG PO ACHS Prescribed by: RAVEN NGO on 12/11/18 1224 C,E,Zinc,Copper 11/Dnxhs0a/Lut (Ocuvite Adult 50 Plus Softgel) 1 Each Capsule, 1 CAP PO DAILY, (Reported) Entered as Reported by: MICH GIVENS on 11/26/18 1039 Cetirizine HCl (Cetirizine HCl) 10 Mg Tablet, 10 MG PO DAILY, (Reported) Entered as Reported by: MICH GIVENS on 11/26/18 1039 Last Action: Reviewed Cyanocobalamin (Vitamin B-12) (Vitamin B-12) 2,000 Mcg Tablet, 2,000 MCG PO DAILY, (Reported) Entered as Reported by: MICH GIVENS on 11/26/18 1039 Finasteride (Finasteride) 5 Mg Tablet, 5 MG PO DAILY, (Reported) Entered as Reported by: MICH GIVENS on 11/26/18 1025 Last Action: Reviewed Glycopyrrolate/Formoterol Fum (Bevespi Aerosphere Inhaler) 10.7 Gm Hfa.aer.ad, 2 PUFF INH BID, (Reported) Entered as Reported by: MICH GIVENS on 11/26/18 1028 Last Action: Reviewed Insulin Glargine,Hum.rec.anlog (Lantus) 100 Unit/1 Ml Vial, 80 UNITS SC HS, (Reported) Entered as Reported by: MICH GIVENS on 11/26/18 1025 Insulin Glargine,Hum.rec.anlog (Lantus) 100 Unit/1 Ml Vial, 40 UNIT SQ DAILY, (Reported) Entered as Reported by: MICH GIVENS on 11/26/18 1028 Insulin Lispro (Humalog) 100 Unit/1 Ml Vial, 30 UNITS SC TIDAC, (Reported) Entered as Reported by: MICH GIVENS on 11/26/18 1028 Meloxicam (Meloxicam) 7.5 Mg Tablet, 7.5 MG PO DAILY, (Reported) Entered as Reported by: MICH GIVENS on 11/26/18 1039 Metoprolol Succinate (Metoprolol Succinate) 50 Mg Tab.er.24h, 50 MG PO DAILY Prescribed by: RAVEN NGO on 12/08/18 1051 Pantoprazole Sodium (Protonix) 40 Mg Tablet.dr, 40 MG PO DAILY Prescribed by: JABIER ALVARENGA on 10/09/20 0939 Last Action: Reviewed Sertraline HCl (Sertraline HCl) 100 Mg Tablet, 100 MG PO DAILY, (Reported) Entered as Reported by: MICH GIVENS on 11/26/18 1039 Last Action: Reviewed Tamsulosin HCl (Flomax) 0.4 Mg Cap, 0.4 MG PO DAILY, (Reported) Entered as Reported by: MICH GIVENS on 11/26/18 1025 Last Action: Reviewed Physical Exam-Cardiology Physical Exam Vital Signs/I&O 08/08/21 08/08/21 08/08/21 08/08/21 00:00 01:00 02:36 04:17 Temp 37.0 37.0 Pulse 90 92 98 Resp 18 B/P (MAP) 133/65 (87) 152/70 (97) Pulse Ox 92 90 91 O2 Delivery High Flow N/C Nasal Cannula High Flow N/C O2 Flow Rate 4.00 5.00 5.00 08/08/21 08/08/21 07:00 07:33 Pulse 98 Pulse Ox 96 O2 Delivery Nasal Cannula O2 Flow Rate 5.00 08/08/21 00:00 Intake Total 960 ml Output Total 3100 ml Balance -2140 ml Capillary Refill : Constitutional: AAO x 3, well-developed, well-nourished HEENT: PERRL, hearing is well preserved, oral hygience is good Neck: No carotid bruit; carotid pulses are 2 + bilaterally Respiratory: No accessory muscle use, No respiratory distress; chest expansion is symmetric, chest is bilaterally symmetric, other (diminished throughout) Cardiovascular: irregularly irregular; No JVD; S1 and S2 Gastrointestinal: distended; No guarding; audible bowel sounds (hyperactive BS) Genital/Rectal: other (urinary catheter in place to DD) Extremities: other (bilat pitting edema) Neurologic/Psychiatric: grossly intact (moves all extremities) Skin: No rash on exposed areas, No ulcerations on exposed areas Data Review Labs Laboratory Tests 08/07/21 12:49: Glucometer 238H 08/07/21 13:00: White Blood Count 3.7L, Red Blood Count 2.79L, Hemoglobin 8.4L, Hematocrit 28L, Mean Corpuscular Volume 100H, Mean Corpuscular Hemoglobin 30, Mean Corpuscular Hemoglobin Concent 30L, Red Cell Distribution Width 20.7H, Platelet Count 89L, Mean Platelet Volume 11.1, Immature Granulocyte % (Auto) 1, Neutrophils (%) (Auto) 71, Lymphocytes (%) (Auto) 14, Monocytes (%) (Auto) 13H, Eosinophils (%) (Auto) 1, Basophils (%) (Auto) 1, Neutrophils # (Auto) 2.6, Lymphocytes # (Auto) 0.5L, Monocytes # (Auto) 0.5, Eosinophils # (Auto) 0.1, Basophils # (Auto) 0.0, Immature Granulocyte # (Auto) 0.0, Percent Immature Platelet Fraction 5.5, Sodium Level 137, Potassium Level 4.3, Chloride Level 97L, Carbon Dioxide Level 33H, Anion Gap 7, Blood Urea Nitrogen 14, Creatinine 0.88, Estimat Glomerular Filtration Rate 90, BUN/Creatinine Ratio 16, Glucose Level 258H, Lactic Acid Level 0.72, Calcium Level 8.6, Corrected Calcium 9.1, Total Bilirubin 2.0H, Aspartate Amino Transf (AST/SGOT) 16, Alanine Aminotransferase (ALT/SGPT) 8, Alkaline Phosphatase 115, Troponin I 0.032H, B-Type Natriuretic Peptide 342.7H, Total Protein 6.1L, Albumin 3.4 08/07/21 14:30: Urine Color YELLOW, Urine Clarity CLEAR, Urine pH 6.0, Urine Specific [place] 1.020, Urine Protein NEGATIVE, Urine Glucose (UA) NEGATIVE, Urine Ketones NEGATIVE, Urine Nitrite NEGATIVE, Urine Bilirubin NEGATIVE, Urine Urobilinogen 0.2, Urine Leukocyte Esterase 1+H, Urine RBC (Auto) 3+H, Urine RBC 10-25H, Urine WBC 10-25H, Urine Squamous Epithelial Cells NONE, Urine Renal Epithelial Cells NONE, Urine Crystals NONE, Urine Bacteria NEGATIVE, Urine Casts NONE, Urine Mucus NEGATIVE, Urine Culture Indicated NO 08/07/21 15:55: Glucometer 329H 08/07/21 20:07: Glucometer 378H 08/07/21 22:11: Glucometer 374H 08/08/21 02:04: Glucometer 317H 08/08/21 05:21: Glucometer 347H 08/08/21 05:42: White Blood Count 2.7L, Red Blood Count 2.60L, Hemoglobin 8.0L, Hematocrit 26L, Mean Corpuscular Volume 101H, Mean Corpuscular Hemoglobin 31, Mean Corpuscular Hemoglobin Concent 31L, Red Cell Distribution Width 20.4H, Platelet Count 88L, Mean Platelet Volume 11.8, Immature Granulocyte % (Auto) 1, Neutrophils (%) (Auto) 91H, Lymphocytes (%) (Auto) 5L, Monocytes (%) (Auto) 4, Eosinophils (%) (Auto) 0, Basophils (%) (Auto) 0, Neutrophils # (Auto) 2.5, Lymphocytes # (Auto) 0.1L, Monocytes # (Auto) 0.1, Eosinophils # (Auto) 0.0, Basophils # (Auto) 0.0, Immature Granulocyte # (Auto) 0.0, Neutrophils % (Manual) 90, Lymphocytes % (Manual) 5, Monocytes % (Manual) 3, Eosinophils % (Manual) 0, Basophils % (Manual) 0, Band Neutrophils 2, Polychromasia SLIGHT, Anisocytosis MODERATE, Macrocytosis SLIGHT, Elliptocytes SLIGHT, Sodium Level 135, Potassium Level 4.1, Chloride Level 97L, Carbon Dioxide Level 27, Anion Gap 11, Blood Urea Nitrogen 17, Creatinine 0.94, Estimat Glomerular Filtration Rate 85, BUN/Creatinine Ratio 18, Glucose Level 385H, Calcium Level 8.6, Corrected Calcium 9.2, Total Bilirubin 1.3H, Aspartate Amino Transf (AST/SGOT) 14, Alanine Aminotransferase (ALT/SGPT) 10, Alkaline Phosphatase 104, Total Protein 6.0L, Albumin 3.2 Radiology NAME: ISELA GAFFNEY Kaylie [facility] REC#: [id number] PT STATUS: ADM IN : 1945 PHYSICIAN: RAVEN NGO DO ADMIT DATE: 08/07/21/4TH Signed Date of Exam:08/07/21 CHEST 1 VIEW, AP/PA ONLY INDICATION: Shortness of breath. TECHNIQUE/COMPARISON: A frontal chest was obtained at 12:32 PM and compared to 12/14/2018. FINDINGS: There is cardiomegaly. There is patchy infiltrate in the left perihilar region as well as in the right upper lobe, right perihilar region, and right base. There is a small amount of pleural fluid on the right side. There is no pneumothorax. IMPRESSION: Cardiomegaly. There are bilateral infiltrates as above, right greater than left, suspicious for pneumonia. There is a small right pleural effusion. Dictated by: Dictated on workstation # [id number] Dict: 08/07/21 1252 Trans: 08/07/21 1358 [id number] Interpreted by: NILAM GARCÍA MD Electronically signed by: NILAM GARCÍA MD 08/07/21 1358 A/P-Cardiology Assessment/Admission Diagnosis Pneumonia - management per medical services Lung cancer - chemo tx - follows at [facility] Minimal troponin elevation - prob Type 2 LA secondary to hypoxia PAF/flutter - [place] Dr. Ngo's [place] [facility] [place] - first dx on 07-21-21 - follows with Dr. Ford of cardiology services at [facility] - Rate controlled - OAC with Eliquis H/o COPD JULIAN - non-compliant with tx Hypertension Hyperlipidemia, by history Diabetes mellitus II, followed and managed by primary care physician Obesity, BMI is approx 41 H/o large pulmonary embolism in the early 1999s; h/o IVC filter in TTE of 12/04/18: LVEF 55-65%, grade 2 diastolic dysfunction of LV, PASP 52 mmHg, no evidence of endocarditis. 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 Ngo for this consult REED FUNK Aug 07, 2021 14:28
[2021-08-07 14:38] LABS: BILIRUBIN,URINE NEGATIVE (NEGATIVE); CLARITY,URINE CLEAR; COLOR,URINE YELLOW; GLUCOSE, URINE (UA) NEGATIVE (NEGATIVE); KETONES,URINE NEGATIVE (NEGATIVE); LEUKOCYTE ESTERASE ,URINE 1+ (NEGATIVE); NITRITE,URINE NEGATIVE (NEGATIVE); PROTEIN,URINE NEGATIVE (NEGATIVE)
[2021-08-07 14:55] LABS: BACTERIA,URINE NEGATIVE /HPF
[2021-08-07] MEDS ORDERED: VANCOMYCIN INJECTION 2,500 MG in NS IV 500 ML 500 ML IV NR (15:00)
[2021-08-07] MEDS ORDERED: RT-ALBUTEROL/IPRATROPIUM 3 ML (DUONEB) VIAL INH PRN (15:15)
--- NOTE | 2021-08-07 15:38 | Physical Therapy Evaluation ---
PT Evaluation-General Medical Diagnosis Admission Date Aug 07, 2021 at 11:18 Medical Diagnosis: pneumonia s/p chemotherapy Onset Date: Aug 07, 2021 Therapy Diagnosis Therapy Diagnosis: weakness, debility Height/Weight Height (Feet): 6 Height (Inches): 7.00 Weight (Pounds): 354 Weight (Ounces): 8.0 Precautions Precautions/Isolations: Fall Prevention, Standard Precautions Referral Physician: Avinash Medical History Pertinent Medical History: COPD, DM, HTN Current History Patient presented [place] [facility] [place] new diagnosis of pneumonia. Reviewed History: Yes Social History Home: Single Level Current Living Status: Spouse Entry Into Home: Stairs Without Railing PT Steps Into Home: 1 (1 step from garage) Prior Prior Level of Function SCALE: Activities may be completed with or without assistive devices. 5-Ittmwnwalz-lhpvtkw completes the activity by him/herself with no assistance from a helper. 5-Set-up or Clean-up Assistance-helper sets up or cleans up; patient completes activity. [place] assists only prior to or following the activity. 4-Supervision or Touching Assistance-helper provides verbal cues and/or touching/steadying and/or contact guard assistance as patient completes activity. Assistance may be provided throughout the activity or intermittently. 3-Partial/Moderate Assistance-helper does LESS THAN HALF the effort. [place] lifts, holds or supports trunk or limbs, but provides less than half the effort. 2-Substantial/Maximal Assistance-helper does MORE THAN HALF the effort. [place] lifts or holds trunk or limbs and provides more than half the effort. 9-Aidrypwxc-ccmdxj does ALL the effort. Patient does none of the effort to compl ete the activity. Or, the assistance of 2 or more helpers is required for the patient to complete the activity. If activity was not attempted, code reason: 7-Patient Refused. 9-Not Applicable-not attempted and the patient did not perform the activity before the current illness, exacerbation or injury. 10-Not Attempted due to Environmental Limitations-(lack of equipment, weather restraints, etc.). 88-Not Attempted due to Medical Conditions or Safety Concerns. Bed Mobility: 6 Transfers (B,C,W/C): 6 Gait: 6 Stairs: 6 Indoor Mobility (Ambulation): Independent Stairs: Independent Prior Device Use: Cane PRN PT Evaluation-Current Subjective Patient presents laying in bed and agrees to participate in physical therapy. Pt/Family Goals to be independent at home Objective Patient Orientation: Person, Place, Time, Situation Attachments: Oxygen, IV ROM/Strength ROM Lower Extremities WFL Strength Lower Extremities 4/5 strength bilaterally grossly Integumentary/Posture Bowel Incontinence: No Bladder Incontinence: Ibarra Cath Neuromuscular (Tone, Coordination, Reflexes) grossly intact Sensory Vision: Wears Glasses Hearing: Functional Transfers Lying to Sitting/Side of Bed(Q: 4 Sit to Stand (QC): 4 Chair/Swa-lv-Zzmcw Xfer(QC): 4 Patient required CGA for all transfers for balance and safety. Gait Does the Patient Walk?: Yes Mode of Locomotion: Walk Anticipated Mode of Locomotion: Walk Walk 10 feet (QC): 4 Walk 50 ft with 2 Turns(QC): 4 Distance: 50 Gait Assistive Device: FWW Comments/Gait Description Patient ambulated for 50' within his room with FWW and CGA. Patient reported SOA after ambulation and O2 saturation was measured at 84% after ambulation. Balance Sitting Static: Normal Sitting Dynamic: Normal Standing Static: Normal Standing Dynamic: Fair Assessment/Needs Patient performed bed mobility, transfers, and ambulation during therapy session. Patient required CGA for all transfers and ambulation. Patient reported SOA with ambulation but recovered once sitting for a couple of minutes. Patient reports that his SOA is not new and he has been on supplemental O2 for a few months now. Patient requires skilled therapy to increase strength, endurance and increase independence with ambulation to return to PLOF. Rehab Potential: Fair PT Alf Goals [place] Code Enforcement Officer Goals PT Alf Goals Time Frame: Aug 17, 2021 Roll Left & Right (QC): 6 Sit to Lying (QC): 6 Lying-Sitting on Side/Bed(QC): 6 Sit to Stand (QC): 6 Chair/Ast-hc-Ygwxn Xfer(QC): 6 Toilet Transfer (QC): 6 Does the Patient Walk: Yes Walk 10 feet (QC): 6 Walk 50ft with 2 Turns (QC): 6 Walk 150 ft (QC): 4 PT Plan Problem List Problem List: Activity Tolerance, Functional Strength, Safety, Balance, Gait, Transfer, Bed Mobility, ROM Treatment/Plan Treatment Plan: Continue Plan of Care Treatment Plan: Bed Mobility, Education, Functional Activity Leela, Functional Strength, Gait, Safety, Therapeutic Exercise, Transfers Treatment Duration: Aug 17, 2021 Frequency: 6 times per week Estimated Hrs Per Day: .25 hour per day Patient and/or Family Agrees t: Yes Safety Risks/Education Patient Education: Gait Training, Transfer Techniques, Correct Positioning, Safety Issues Teaching Recipient: Patient Teaching Methods: Discussion Response to Teaching: Reinforcement Needed Discharge Recommendations Plan Patient will perform bed mobility and transfer training, balance and endurance training, functional strengthening, stair training, gait training, and education, to improve functional mobility and independence at home. Therapy Discharge Recommendati: Home & Family, Post Acute PT Time/GCodes Time In: 1446 Time Out: 1500 Total Billed Treatment Time: 14 Total Billed Treatment 1 Visit EVMod 14 min AVEL BANKS PT Aug 07, 2021 15:38
[2021-08-07 15:51] VITALS: BP 144/61
[2021-08-07] MEDS ORDERED: inSUlin (REGULAR) HUMAN 1 UNIT/0.01 ML (CHARGE PER UNIT) SC PRN (19:30)
[2021-08-07] MEDS ORDERED: inSUlin (REGULAR) HUMAN 1 UNIT/0.01 ML (CHARGE PER UNIT) SC ONE (19:30)
[2021-08-07 19:45] VITALS: BP 148/67
--- NOTE | 2021-08-07 19:50 | Consultation-Cardiology ---
HPI-Cardiology Cardiology Consultation: Date of Consultation 08/07/21 Time Seen by a Provider: 16:45 Date of Admission Attending Physician Raven Da Silva DO Admitting Physician Raven Da Silva DO Consulting Physician EDWIGE MORALES MD, MA, FACP, FACC, [facility] [place] HPI: Chief Complaint: SOB Elevated troponin Mr. Gaffney is a 76 yr old male [place] [id number] [place] [facility] He reports he was admitted [place] [facility] [place] ago d/t bowel obstruction. He states that has impr citlali, however he developed increasing SOB and was found to have developed pneumonia. He reports he feels his SOB is better, but still present. He states he has lung cancer which he is following with [facility]. He states he has recently started chemo tx, but has only had 1 tx d/t weakness/illness. He states he has worsening LE swelling. He reports he follows with Dr. Ford of [place] cardiology. He reports he is on Eliquis. He denies any palpitations. No c/o syncope or near syncope. He reports he feels he has abdominal bloating. Review of Systems-Cardiology Review of Systems Constitutional: No chills; malaise, tiredness Eyes: No vision change Ears/Nose/Throat: No epistaxis, No recent hearing loss Respiratory: As described under HPI Cardiovascular: As described under HPI Gastrointestinal: As described under HPI Genitourinary: other (urniary catheter in place) Musculoskeletal: joint pain Skin: No rash on exposed areas, No ulcerations on exposed areas Psychiatric/Neurological: No anxiety, No depression, No focal weakness, No syncope Hematologic: No bleeding abnormalities PSO-Tiiggx-Uxfixv Hx Patient Social History Smoking Status: Former Smoker 2nd Hand Smoke Exposure: No Alcohol Use?: No Tobacco type used: Cigarettes Immunizations Up To Date Tetanus Booster (TDap): Unknown Date of Pneumonia Vaccine: Mar 28, 2017 Past Medical History PMH As described under Assessment. Family Medical History Family Medical History: No reported family h/o CAD Family History: Patient reports no known family medical history. Allergies and Home Medications Allergies Coded Allergies: No Known Drug Allergies (Unverified , 11/26/18) Patient Home Medication List Home Medication List Reviewed: Yes Albuterol Sulfate (Proair Hfa) 1 Puff Puff, 2 PUFF INH Q4H PRN for SHORTNESS OF BREATH, (Reported) Entered as Reported by: MICH GIVENS on 11/26/18 1043 Aspirin (Aspirin EC) 81 Mg Tablet.dr, 81 MG PO DAILY, (Reported) Entered as Reported by: MICH GIVENS on 11/26/18 1039 Last Action: Reviewed Bethanechol Chloride (Urecholine) 10 Mg Tablet, 10 MG PO ACHS Prescribed by: RAVEN DA SILVA on 12/11/18 1224 C,E,Zinc,Copper 11/Giacc5f/Lut (Ocuvite Adult 50 Plus Softgel) 1 Each Capsule, 1 CAP PO DAILY, (Reported) Entered as Reported by: MICH GIVENS on 11/26/18 1039 Cetirizine HCl (Cetirizine HCl) 10 Mg Tablet, 10 MG PO DAILY, (Reported) Entered as Reported by: MICH GIVENS on 11/26/18 1039 Last Action: Reviewed Cyanocobalamin (Vitamin B-12) (Vitamin B-12) 2,000 Mcg Tablet, 2,000 MCG PO DAILY, (Reported) Entered as Reported by: MICH GIVENS on 11/26/18 1039 Finasteride (Finasteride) 5 Mg Tablet, 5 MG PO DAILY, (Reported) Entered as Reported by: MICH GIVENS on 11/26/18 1025 Last Action: Reviewed Glycopyrrolate/Formoterol Fum (Bevespi Aerosphere Inhaler) 10.7 Gm Hfa.aer.ad, 2 PUFF INH BID, (Reported) Entered as Reported by: MICH GIVENS on 11/26/18 1028 Last Action: Reviewed Insulin Glargine,Hum.rec.anlog (Lantus) 100 Unit/1 Ml Vial, 80 UNITS SC HS, (Reported) Entered as Reported by: MICH GIVENS on 11/26/18 1025 Insulin Glargine,Hum.rec.anlog (Lantus) 100 Unit/1 Ml Vial, 40 UNIT SQ DAILY, (Reported) Entered as Reported by: MICH GIVENS on 11/26/18 1028 Insulin Lispro (Humalog) 100 Unit/1 Ml Vial, 30 UNITS SC TIDAC, (Reported) Entered as Reported by: MICH GIVENS on 11/26/18 1028 Meloxicam (Meloxicam) 7.5 Mg Tablet, 7.5 MG PO DAILY, (Reported) Entered as Reported by: MICH GIVENS on 11/26/18 1039 Metoprolol Succinate (Metoprolol Succinate) 50 Mg Tab.er.24h, 50 MG PO DAILY Prescribed by: RAVEN DA SILVA on 12/08/18 1051 Pantoprazole Sodium (Protonix) 40 Mg Tablet.dr, 40 MG PO DAILY Prescribed by: JABIER ALVARENGA on 10/09/20 0939 Last Action: Reviewed Sertraline HCl (Sertraline HCl) 100 Mg Tablet, 100 MG PO DAILY, (Reported) Entered as Reported by: MICH GIVENS on 11/26/18 1039 Last Action: Reviewed Tamsulosin HCl (Flomax) 0.4 Mg Cap, 0.4 MG PO DAILY, (Reported) Entered as Reported by: MICH GIVENS on 11/26/18 1025 Last Action: Reviewed Physical Exam-Cardiology Physical Exam Vital Signs/I&O 08/07/21 08/07/21 08/07/21 08/07/21 12:21 12:24 15:51 17:45 Temp 36.5 36.9 Pulse 59 66 75 Resp 20 20 B/P (MAP) 129/60 (83) 144/61 (88) Pulse Ox 98 94 O2 Delivery High Flow N/C High Flow N/C Nasal Cannula O2 Flow Rate 4.00 4.00 7.00 08/07/21 19:00 Pulse 80 Capillary Refill : Constitutional: AAO x 3, well-developed, well-nourished HEENT: PERRL, hearing is well preserved, oral hygience is good Neck: No carotid bruit; carotid pulses are 2 + bilaterally Respiratory: No accessory muscle use, No respiratory distress; chest expansion is symmetric, chest is bilaterally symmetric, other (diminished throughout) Cardiovascular: irregularly irregular; No JVD; S1 and S2 Gastrointestinal: distended; No guarding; audible bowel sounds (hyperactive BS) Genital/Rectal: other (urinary catheter in place to DD) Extremities: other (bilat pitting edema) Neurologic/Psychiatric: grossly intact (moves all extremities) Skin: No rash on exposed areas, No ulcerations on exposed areas Data Review Labs Laboratory Tests 08/07/21 12:49: Glucometer 238H 08/07/21 13:00: White Blood Count 3.7L, Red Blood Count 2.79L, Hemoglobin 8.4L, Hematocrit 28L, Mean Corpuscular Volume 100H, Mean Corpuscular Hemoglobin 30, Mean Corpuscular Hemoglobin Concent 30L, Red Cell Distribution Width 20.7H, Platelet Count 89L, Mean Platelet Volume 11.1, Immature Granulocyte % (Auto) 1, Neutrophils (%) (Auto) 71, Lymphocytes (%) (Auto) 14, Monocytes (%) (Auto) 13H, Eosinophils (%) (Auto) 1, Basophils (%) (Auto) 1, Neutrophils # (Auto) 2.6, Lymphocytes # (Auto) 0.5L, Monocytes # (Auto) 0.5, Eosinophils # (Auto) 0.1, Basophils # (Auto) 0.0, Immature Granulocyte # (Auto) 0.0, Percent Immature Platelet Fraction 5.5, Sodium Level 137, Potassium Level 4.3, Chloride Level 97L, Carbon Dioxide Level 33H, Anion Gap 7, Blood Urea Nitrogen 14, Creatinine 0.88, Estimat Glomerular Filtration Rate 90, BUN/Creatinine Ratio 16, Glucose Level 258H, Lactic Acid Level 0.72, Calcium Level 8.6, Corrected Calcium 9.1, Total Bilirubin 2.0H, Aspartate Amino Transf (AST/SGOT) 16, Alanine Aminotransferase (ALT/SGPT) 8, Alk farrah Phosphatase 115, Troponin I 0.032H, B-Type Natriuretic Peptide 342.7H, Total Protein 6.1L, Albumin 3.4 08/07/21 14:30: Urine Color YELLOW, Urine Clarity CLEAR, Urine pH 6.0, Urine Specific [place] 1.020, Urine Protein NEGATIVE, Urine Glucose (UA) NEGATIVE, Urine Ketones NEGATIVE, Urine Nitrite NEGATIVE, Urine Bilirubin NEGATIVE, Urine Urobilinogen 0.2, Urine Leukocyte Esterase 1+H, Urine RBC (Auto) 3+H, Urine RBC 10-25H, Urine WBC 10-25H, Urine Squamous Epithelial Cells NONE, Urine Renal Epithelial Cells NONE, Urine Crystals NONE, Urine Bacteria NEGATIVE, Urine Casts NONE, Urine Mucus NEGATIVE, Urine Culture Indicated NO 08/07/21 15:55: Glucometer 329H A/P-Cardiology Assessment/Admission Diagnosis Pneumonia - management per medical services Lung cancer - chemo tx - follows at [facility] Minimal troponin elevation - prob Type 2 NE secondary to hypoxia PAF/flutter - [place] Dr. Da Silva's [place] [facility] [place] - first dx on 07-21-21. Exhibits NSR with first deg AV block on ECG done on 08/07/21 at this hospital - follows with Dr. Ford of cardiology services at [facility] [place] - OAC with Eliquis H/o COPD JULIAN - non-compliant with tx Hypertension Hyperlipidemia, by history Diabetes mellitus II, followed and managed by primary care physician Obesity, BMI is approx 41 H/o large pulmonary embolism in the early 1999s; h/o IVC filter in TTE of 12/04/18: LVEF 55-65%, grade 2 diastolic dysfunction of LV, PASP 52 mmHg, no evidence of endocarditis. 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 Da Silva for this consult EDWIGE MORALES MD FACP FAC CCDS Aug 07, 2021 19:50
[2021-08-07] MEDS ORDERED: CEFEPIME INJECTION 2,000 MG in NS (IVPB) 50 ML IV SCH (21:00)
[2021-08-07] MEDS: RT-ALBUTEROL/IPRATROPIUM 3 ML (DUONEB) VIAL INH SCH (21:39)
[2021-08-07] MEDS: BETHANECHOL 25 MG (URECHOLINE) TAB PO SCH (22:00)
[2021-08-07] MEDS: dilTIAZem120 MG (CARDIZEM CD) CAP PO SCH (22:00)
[2021-08-07] MEDS: APIXABAN 5 MG (ELIQUIS) TABLET PO SCH (22:00)
[2021-08-07] MEDS: DOCUSATE SODIUM 100 MG (COLACE) CAP PO SCH (22:00)
[2021-08-07] MEDS: SENNOSIDES 8.6 MG (SENOKOT) TAB PO SCH (22:00)
[2021-08-07] MEDS: TAMSULOSIN 0.4 MG (FLOMAX) CAP PO SCH (22:00)
[2021-08-08] VITALS: BP 133/65
[2021-08-08] MEDS: RT-ALBUTEROL/IPRATROPIUM 3 ML (DUONEB) VIAL INH SCH ×4 (02:36→21:55)
[2021-08-08] MEDS ORDERED: VANCOMYCIN 1000 MG/VIAL ONE (02:49)
[2021-08-08] MEDS ORDERED: NS IV 500 ML 500 ML ONE (02:49)
[2021-08-08] MEDS: VANCOMYCIN 2000 MG/NS 500 ML IVPB IV SCH ×6 (03:14→16:43)
[2021-08-08 04:17] VITALS: BP 152/70
[2021-08-08 06:00] LABS: BASOPHILS % (AUTO) 0 % (0-10); EOSINOPHILS % (AUTO) 0 % (0-10); HEMATOCRIT 26 % (40-54); LYMPHOCYTES # (AUTO) 0.1 10^3/uL (1.0-4.0); LYMPHOCYTES % (AUTO) 5 % (12-44); MEAN CORPUSCULAR HEMOGLOBIN 31 pg (25-34); MEAN CORPUSCULAR HGB CONC 31 g/dL (32-36); MEAN CORPUSCULAR VOLUME 101 fL (80-99); MEAN PLATELET VOLUME 11.8 fL (9.0-12.2); MONOCYTES # (AUTO) 0.1 10^3/uL (0.0-1.0); MONOCYTES % (AUTO) 4 % (0-12); NEUTROPHILS # (AUTO) 2.5 10^3/uL (1.8-7.8); NEUTROPHILS % (AUTO) 91 % (42-75); PLATELET COUNT 88 10^3/uL (130-400); WHITE BLOOD COUNT 2.7 10^3/uL (4.3-11.0)
[2021-08-08] MEDS: CEFEPIME 1,000 MG/NS 50 ML IVPB IV SCH ×8 (06:09→23:10)
[2021-08-08] MEDS: methylPREDNISolone 125 MG (Solu-MEDROL) VIAL IVP SCH ×3 (06:09→21:12)
[2021-08-08] MEDS: BETHANECHOL 25 MG (URECHOLINE) TAB PO SCH ×4 (06:09→21:11)
[2021-08-08] MEDS: inSUlin ASPART (NovoLOG) 1 UNIT/0.01 ML (CHARGE PER UNIT) SC SCH ×6 (06:10→20:12)
[2021-08-08 06:22] LABS: ALBUMIN 3.2 GM/DL (3.2-4.5); POTASSIUM 4.1 MMOL/L (3.6-5.0)
[2021-08-08 06:23] LABS: CALCIUM 8.6 MG/DL (8.5-10.1)
[2021-08-08 06:26] LABS: BILIRUBIN,TOTAL 1.3 MG/DL (0.1-1.0)
[2021-08-08 06:28] LABS: CREATININE SERUM 0.94 MG/DL (0.60-1.30)
[2021-08-08 07:26] LABS: BAND NEUTROPHILS 2 %; BASOPHILS % (MANUAL) 0 %; EOSINOPHILS % (MANUAL) 0 %; LYMPHOCYTES % (MANUAL) 5 %; MONOCYTES % (MANUAL) 3 %; NEUTROPHILS % (MANUAL) 90 %; POLYCHROMASIA SLIGHT
[2021-08-08 07:27] LABS: ANISOCYTOSIS MODERATE; ELLIPT/OVALOCYTES SLIGHT
[2021-08-08 08:00] VITALS: BP 128/60
[2021-08-08] MEDS: DOCUSATE SODIUM 100 MG (COLACE) CAP PO SCH ×2 (09:30→20:06)
[2021-08-08] MEDS: SENNOSIDES 8.6 MG (SENOKOT) TAB PO SCH ×2 (09:31→20:07)
--- NOTE | 2021-08-08 09:34 | Consultation - Surgery ---
CHRISTIAN MARQUEZ 08/08/21 0933: History of Present Illness History of Present Illness Patient Consulted On(pradeep/time) 08/08/21 09:20 Date Seen by Provider: Aug 08, 2021 Time Seen by Provider: 09:30 History of Present Illness Consult: Urinary retention 76yo male presents with problems of bladder retention and constipation since and reports struggling to get a small amount of urine out with burning. It got worse over the next few days and he was unable to void so he went to [place] [facility] on Thursday, they put in a catheter and relieved his symptoms, was transferred here yesterday afternoon. Due to chemotherapy and radiation treatment for lung cancer, has not had symptoms prior to this. His first chemotherapy treatment was five weeks ago at [facility]. He reports urinary frequency, but unable to empty bladder. Still reports burning only with urination with catheter but reports some relief since it was placed in the ER in [place] and continues to have burning with urination. Denies Fever and chills, and a UTI when he presented to [place] [facility]. 7/8 out of 10 pain, only goes to penis and bladder does not radiate elsewhere. Urinating makes it worse, after urinating makes the pain better. Denies blood in stool or melena. Does not remember his last colonoscopy or where he had his last one done. Also, EGD by Dr. Alvarenga less than one year ago for GERD symptoms with post op findings of Gastritis and reflux esophagitis and an GB removal 10/09/[address] Alvarenga for Cholethiasis and Choledocholithiasis. His constipation is resolved on laxatives. Allergies and Home Medications Allergies Coded Allergies: No Known Drug Allergies (Unverified , 11/26/18) Patient Home Medication List Amlodipine Besylate (Amlodipine Besylate) 5 Mg Tablet, 5 MG PO DAILY, (Reported) Entered as Reported by: NICK ROLON on 08/08/21 1230 Last Action: Held Aspirin (Aspirin EC) 81 Mg Tablet., 81 MG PO DAILY, (Reported) Entered as Reported by: MICH GIVENS on 11/26/18 1039 Last Action: Continued Atorvastatin Calcium (Atorvastatin Calcium) 40 Mg Tablet, 20 MG PO DAILY, (Reported) Entered as Reported by: NICK ROLON on 08/08/21 1214 Last Action: Continued C,E,Zinc,Copper 11/Uhydm4y/Lut (Ocuvite Adult 50 Plus Softgel) 1 Each Capsule, 1 CAP PO DAILY, (Reported) Entered as Reported by: MICH GIVENS on 11/26/18 1039 Last Action: Held Cetirizine HCl (Cetirizine HCl) 10 Mg Tablet, 10 MG PO DAILY, (Reported) Entered as Reported by: MICH GIVENS on 11/26/18 1039 Last Action: Converted Cranberry Fruit (Cranberry) 400 Mg Tablet, 400 MG PO DAILY, (Reported) Entered as Reported by: NICK ROLON on 08/08/211213 Last Action: Converted Cyanocobalamin (Vitamin B-12) (Vitamin B-12) 2,000 Mcg Tablet, 2,000 MCG PO DAILY, (Reported) Entered as Reported by: MICH GIVENS on 11/26/18 1039 Last Action: Converted Cyclobenzaprine HCl (Cyclobenzaprine HCl) 10 Mg Tablet, 10 MG PO HS PRN for MUSCLE SPASMS, (Reported) Entered as Reported by: NICK ROLON on 08/08/211213 Last Action: Continued Diltiazem HCl (Diltiazem 24Hr ER) 120 Mg Cap.er.24h, 120 MG PO BID, (Reported) Entered as Reported by: NICK ROLON on 08/08/211213 Last Action: Continued Finasteride (Finasteride) 5 Mg Tablet, 5 MG PO DAILY, (Reported) Entered as Reported by: MICH GIVENS on 11/26/18 1025 Last Action: Continued Fluticasone Propion/Salmeterol (Fluticasone-Salmeterol 250-50) 1 Each Blst.w.dev, 1 EACH IH BID, (Reported) Entered as Reported by: NICK ROLON on 08/08/21 1223 Last Action: Converted Furosemide (Furosemide) 40 Mg Tablet, 40 MG PO Q72H, (Reported) Entered as Reported by: NICK ROLON on 08/08/211213 Last Action: Held Gabapentin (Neurontin) 300 Mg Capsule, 300 MG PO TID, (Reported) Entered as Reported by: NICK ROLON on 08/08/211213 Last Action: Continued Insulin Glargine,Hum.rec.anlog (Lantus) 100 Unit/1 Ml Vial, 60 UNIT SQ BID, (Reported) Entered as Reported by: MICH GIVENS on 11/26/18 102 Last Action: Held Insulin Lispro (Humalog) 100 Unit/1 Ml Vial, 30 UNITS SC TIDAC, (Reported) Entered as Reported by: MICH GIVENS on 11/26/18 1028 Last Action: Held Losartan Potassium (Losartan Potassium) 100 Mg Tablet, 100 MG PO DAILY, (Reported) Entered as Reported by: NICK ROLON on 08/08/211213 Last Action: Held Meloxicam (Meloxicam) 15 Mg Tablet, 15 MG PO DAILY, (Reported) Entered as Reported by: NICK ROLON on 08/08/211213 Last Action: Converted Metoclopramide HCl (Metoclopramide HCl) 5 Mg Tablet, 5 MG PO ACHS PRN for NAUSEA/VOMITING-3RD LINE, (Reported) Entered as Reported by: NICK ROLON on 08/08/211213 Last Action: Continued Metoprolol Tartrate (Metoprolol Tartrate) 50 Mg Tablet, 25 MG PO BID, (Reported) Entered as Reported by: NICK ROLON on 08/08/211213 Last Action: Continued Ondansetron HCl (Ondansetron HCl) 4 Mg Tablet, 4 MG PO Q6H PRN for NAUSEA/VOMITING-1ST LINE, (Reported) Entered as Reported by: NICK ROLON on 08/08/211213 Last Action: Converted Pantoprazole Sodium (Pantoprazole Sodium) 40 Mg Tablet.dr, 40 MG PO BID, (Reported) Entered as Reported by: NICK ROLON on 08/08/211213 Last Action: Continued Pioglitazone HCl (Pioglitazone HCl) 15 Mg Tablet, 15 MG PO DAILY, (Reported) Entered as Reported by: NICK ROLON on 08/08/211213 Last Action: Held Prochlorperazine Maleate (Prochlorperazine Maleate) 5 Mg Tablet, 5 MG PO Q6H PRN for NAUSEA/VOMITING-4TH LINE, (Reported) Entered as Reported by: NICK ROLON on 08/08/211213 Last Action: Converted Sertraline HCl (Sertraline HCl) 100 Mg Tablet, 100 MG PO DAILY, (Reported) Entered as Reported by: MICH GIVENS on 11/26/18 1039 Last Action: Continued Sucralfate (Sucralfate) 1 Gm Tablet, 1 GM PO TIDAC, (Reported) Entered as Reported by: NICK ROLON on 08/08/21 1214 Last Action: Continued Tamsulosin HCl (Flomax) 0.4 Mg Cap, 0.4 MG PO DAILY, (Reported) Entered as Reported by: MICH GIVENS on 11/26/18 1025 Last Action: Continued Triamterene/Hydrochlorothiazid (Triamterene-Hctz 37.5-25 mg Cp) 1 Each Capsule, 1 EA PO DAILY, (Reported) Entered as Reported by: NICK ROLON on 08/08/21 1214 Last Action: Held Discontinued Medications Albuterol Sulfate (Proair Hfa) 1 Puff Puff, 2 PUFF INH Q4H PRN for SHORTNESS OF BREATH, (Reported) Discontinued Reason: Duplicate Order Entered as Reported by: MICH GIVENS on 11/26/18 1043 Last Action: Discontinued Bethanechol Chloride (Urecholine) 10 Mg Tablet, 10 MG PO ACHS Discontinued Reason: No Longer Taking Prescribed by: RAMEZ NGO on 12/11/18 1224 Last Action: Discontinued Glycopyrrolate/Formoterol Fum (Bevespi Aerosphere Inhaler) 10.7 Gm Hfa.aer.ad, 2 PUFF INH BID, (Reported) Discontinued Reason: Duplicate Order Entered as Reported by: MICH GIVENS on 11/26/18 1028 Last Action: Discontinued Insulin Glargine,Hum.rec.anlog (Lantus) 100 Unit/1 Ml Vial, 80 UNITS SC HS, (Reported) Discontinued Reason: Duplicate Order Entered as Reported by: MICH GIVENS on 11/26/18 1025 Last Action: Discontinued Meloxicam (Meloxicam) 7.5 Mg Tablet, 7.5 MG PO DAILY, (Reported) Discontinued Reason: Prescription changed Entered as Reported by: MICH GIVENS on 11/26/18 1039 Metoprolol Succinate (Metoprolol Succinate) 50 Mg Tab.er.24h, 50 MG PO DAILY Discontinued Reason: Duplicate Order Prescribed by: RAMEZ NGO on 12/08/18 1051 Last Action: Discontinued Pantoprazole Sodium (Protonix) 40 Mg Tablet.dr, 40 MG PO DAILY Discontinued Reason: Duplicate Order Prescribed by: JABIER ALVARENGA on 10/09/20 0939 Last Action: Discontinued Past Lpsrurs-Srsprb-Gnvgyc Hx Patient Social History Smoking Status: Former Smoker Former Smoker, Quit: Jun 15, 1999 2nd Hand Smoke Exposure: No Recent Hopitalizations: Yes Alcohol Use?: No Immunizations Up To Date Tetanus Booster (TDap): Unknown PED Vaccines UTD: Yes Date of Pneumonia Vaccine: Mar 28, 2017 Seasonal Allergies Seasonal Allergies: No Surgeries History of Surgeries: Yes Surgeries: Abdominal (colestomy, GB removed), Orthopedic (herniated disc ) Respiratory History of Respiratory Disorde: Yes Respiratory Disorders: Pneumonia, Sleep Apnea, COPD Cardiovascular History of Cardiac Disorders: Yes Cardiac Disorders: Atrial Fibrillation, High Cholesterol, Hypertension Neurological History of Neurological Disord: No Neurological Disorders: Neuropathy Reproductive System Sexually Transmitted Disease: No HIV/AIDS: No Genitourinary History of Genitourinary Disor: Yes Genitourinary Disorders: Benign Prostatic Hyperpl, Kidney Infection, Bladder Infection, Renal Failure, Neurogenic Bladder Gastrointestinal History of Gastrointestinal Di: No Gastrointestinal Disorders: Gastroesophageal Reflux, Cirrhosis Musculoskeletal History of Musculoskeletal Dis: Yes Musculoskeletal Disorders: Arthritis, Chronic Back Pain Endocrine History of Endocrine Disorders: Yes Endocrine Disorders: Diabetes, Insulin dep HEENT History of HEENT Disorders: Yes HEENT Disorders: Cataract, Tinnitis Loss of Vision: Bilateral Hearing Impairment: Hard of Hearing Cancer History of Cancer: Yes Cancer: Lung Psychosocial History of Psychiatric Problem: Yes Behavioral Health Disorders: Depression Integumentary History of Skin or Integumenta: No Blood Transfusions History of Blood Disorders: No Adverse Reaction to a Blood Tr: No Family Medical History Significant Family History: No Pertinent Family Hx, Cancer (uncle=lung cancer ), Diabetes (Grandmother DM2), Hypertension (mother, sister) Family Medial History: Patient reports no known family medical history. Review of Systems-General Constitutional: No chills, No fever EENTM: hearing loss, eye pain; No ear pain Respiratory: No cough; short of breath Cardiovascular: No chest pain; palpitations Gastrointestinal: abdominal pain; No hematemesis, No melena; nausea; No vomiting Genitourinary: dysuria, frequency, incontinence Musculoskeletal: back pain, neck pain Skin: dryness, pruritus Psychiatric/Neurological: Headache; Denies Weakness Physical Exam-General Problems Physical Exam Vital Signs Vital Signs - First Documented 08/07/21 08/07/21 12:21 12:24 Temp 36.5 Pulse 59 Resp 20 B/P (MAP) 129/60 (83) Pulse Ox 98 O2 Delivery High Flow N/C O2 Flow Rate 4.00 Capillary Refill : General Appearance: obese, other (witnessed pain with urination ) HEENT: PERRL/EOMI; No photophobia Neck: full range of motion, supple Respiratory: no accessory muscle use, decreased breath sounds, other (on oxygen ) Cardiovascular: no murmur, irregularly irregular Gastrointestinal: tenderness (RUQ and LUQ), hernia (along central incision ), other (scars from prior surgeries in RUQ and central ) Extremities: no calf tenderness, swelling (b/l LE) Neurologic/Psychiatric: alert, oriented x 3 Skin: warm/dry; No cyanosis; other (dry UE and LE b/l) Data Review Labs Laboratory Tests 08/07/21 12:49: Glucometer 238H 08/07/21 13:00: White Blood Count 3.7L, Red Blood Count 2.79L, Hemoglobin 8.4L, Hematocrit 28L, Mean Corpuscular Volume 100H, Mean Corpuscular Hemoglobin 30, Mean Corpuscular Hemoglobin Concent 30L, Red Cell Distribution Width 20.7H, Platelet Count 89L, Mean Platelet Volume 11.1, Immature Granulocyte % (Auto) 1, Neutrophils (%) (Auto) 71, Lymphocytes (%) (Auto) 14, Monocytes (%) (Auto) 13H, Eosinophils (%) (Auto) 1, Basophils (%) (Auto) 1, Neutrophils # (Auto) 2.6, Lymphocytes # (Auto) 0.5L, Monocytes # (Auto) 0.5, Eosinophils # (Auto) 0.1, Basophils # (Auto) 0.0, Immature Granulocyte # (Auto) 0.0, Percent Immature Platelet Fraction 5.5, Sodium Level 137, Potassium Level 4.3, Chloride Level 97L, Carbon Dioxide Level 33H, Anion Gap 7, Blood Urea Nitrogen 14, Creatinine 0.88, Estimat Glomerular Filtration Rate 90, BUN/Creatinine Ratio 16, Glucose Level 258H, Lactic Acid Level 0.72, Calcium Level 8.6, Corrected Calcium 9.1, Total Bilirubin 2.0H, Aspartate Amino Transf (AST/SGOT) 16, Alanine Aminotransferase (ALT/SGPT) 8, Alkaline Phosphatase 115, Troponin I 0.032H, B-Type Natriuretic Peptide 342.7H, Total Protein 6.1L, Albumin 3.4 08/07/21 14:30: Urine Color YELLOW, Urine Clarity CLEAR, Urine pH 6.0, Urine Specific [place] 1.020, Urine Protein NEGATIVE, Urine Glucose (UA) NEGATIVE, Urine Ketones NEGATIVE, Urine Nitrite NEGATIVE, Urine Bilirubin NEGATIVE, Urine Urobilinogen 0.2, Urine Leukocyte Esterase 1+H, Urine RBC (Auto) 3+H, Urine RBC 10-25H, Urine WBC 10-25H, Urine Squamous Epithelial Cells NONE, Urine Renal Epithelial Cells NONE, Urine Crystals NONE, Urine Bacteria NEGATIVE, Urine Casts NONE, Urine Mucus NEGATIVE, Urine Culture Indicated NO 08/07/21 15:55: Glucometer 329H 08/07/21 20:07: Glucometer 378H 08/07/21 22:11: Glucometer 374H 08/08/21 02:04: Glucometer 317H 08/08/21 05:21: Glucometer 347H 08/08/21 05:42: White Blood Count 2.7L, Red Blood Count 2.60L, Hemoglobin 8.0L, Hematocrit 26L, Mean Corpuscular Volume 101H, Mean Corpuscular Hemoglobin 31, Mean Corpuscular Hemoglobin Concent 31L, Red Cell Distribution Width 20.4H, Platelet Count 88L, Mean Platelet Volume 11.8, Immature Granulocyte % (Auto) 1, Neutrophils (%) (Auto) 91H, Lymphocytes (%) (Auto) 5L, Monocytes (%) (Auto) 4, Eosinophils (%) (Auto) 0, Basophils (%) (Auto) 0, Neutrophils # (Auto) 2.5, Lymphocytes # (Auto) 0.1L, Monocytes # (Auto) 0.1, Eosinophils # (Auto) 0.0, Basophils # (Auto) 0.0, Immature Granulocyte # (Auto) 0.0, Neutrophils % (Manual) 90, Lymphocytes % (Manual) 5, Monocytes % (Manual) 3, Eosinophils % (Manual) 0, Basophils % (Manual) 0, Band Neutrophils 2, Polychromasia SLIGHT, Anisocytosis MODERATE, Macrocytosis SLIGHT, Elliptocytes SLIGHT, Sodium Level 135, Potassium Level 4.1, Chloride Level 97L, Carbon Dioxide Level 27, Anion Gap 11, Blood Urea Nitrogen 17, Creatinine 0.94, Estimat Glomerular Filtration Rate 85, BUN/Creatinine Ratio 18, Glucose Level 385H, Calcium Level 8.6, Corrected Calcium 9.2, Total Bilirubin 1.3H, Aspartate Amino Transf (AST/SGOT) 14, Alanine Aminotransferase (ALT/SGPT) 10, Alkaline Phosphatase 104, Total Protein 6.0L, Albumin 3.2 Assessment/Plan Assessment/Plan Assessment/Plan Urinary Retention -Catheter was in place that helped relieve his retention, but was taken out 08/08 because he is reporting leakage of urine and burning with urination as well as difficulty with placing the cath when it was first placed. After the cath was taken out he reported feeling better, will continue his medication (Flomax) and see if he is better off without the cath. COPD -Continue on oxygen, Albuterol/Ipratropium, PT and OT. HTN -Monitor BP Hx Lung Cancer s/p Radiation & 1st Round of Chemotherapy JABIER ALVARENGA DO 08/09/21 1106: History of Present Illness History of Present Illness History of Present Illness Consult requested by Dr. Ngo for urinary retention and constipation. Patient was having urinary retention and having burning with urination. Was at [facility] and had catheter placed. Patient has been having fequency with urination. Feels like he could not empty bladder. Patient was placed on Urecholine. No blood in stools. Feels constipated. Denies n/v fever sweats chills shortness of breath or chest pain at this time. Allergies and Home Medications Allergies Coded Allergies: No Known Drug Allergies (Unverified , 11/26/18) Patient Home Medication List Home Medication List Reviewed: Yes Amlodipine Besylate (Amlodipine Besylate) 5 Mg Tablet, 5 MG PO DAILY, (Reported) Entered as Reported by: NICK ROLON on 08/08/21 1230 Last Action: Held Aspirin (Aspirin EC) 81 Mg Tablet., 81 MG PO DAILY, (Reported) Entered as Reported by: MICH GIVENS on 11/26/18 1039 Last Action: Continued Atorvastatin Calcium (Atorvastatin Calcium) 40 Mg Tablet, 20 MG PO DAILY, (Reported) Entered as Reported by: NICK ROLON on 08/08/21 1214 Last Action: Continued C,E,Zinc,Copper 11/Kjabp2x/Lut (Ocuvite Adult 50 Plus Softgel) 1 Each Capsule, 1 CAP PO DAILY, (Reported) Entered as Reported by: MICH GIVENS on 11/26/18 1039 Last Action: Held Cetirizine HCl (Cetirizine HCl) 10 Mg Tablet, 10 MG PO DAILY, (Reported) Entered as Reported by: MICH GIVENS on 11/26/18 1039 Last Action: Converted Cranberry Fruit (Cranberry) 400 Mg Tablet, 400 MG PO DAILY, (Reported) Entered as Reported by: NICK ROLON on 08/08/211213 Last Action: Converted Cyanocobalamin (Vitamin B-12) (Vitamin B-12) 2,000 Mcg Tablet, 2,000 MCG PO DAILY, (Reported) Entered as Reported by: MICH GIVENS on 11/26/18 103 Last Action: Converted Cyclobenzaprine HCl (Cyclobenzaprine HCl) 10 Mg Tablet, 10 MG PO HS PRN for MUSCLE SPASMS, (Reported) Entered as Reported by: NICK ROLON on 08/08/211213 Last Action: Continued Diltiazem HCl (Diltiazem 24Hr ER) 120 Mg Cap.er.24h, 120 MG PO BID, (Reported) Entered as Reported by: NICK ROLON on 08/08/211213 Last Action: Continued Finasteride (Finasteride) 5 Mg Tablet, 5 MG PO DAILY, (Reported) Entered as Reported by: MICH GIVENS on 11/26/18 1025 Last Action: Continued Fluticasone Propion/Salmeterol (Fluticasone-Salmeterol 250-50) 1 Each Blst.w.dev, 1 EACH IH BID, (Reported) Entered as Reported by: NICK ROLON on 08/08/21 1223 Last Action: Converted Furosemide (Furosemide) 40 Mg Tablet, 40 MG PO Q72H, (Reported) Entered as Reported by: NICK ROLON on 08/08/211213 Last Action: Held Gabapentin (Neurontin) 300 Mg Capsule, 300 MG PO TID, (Reported) Entered as Reported by: NICK ROLON on 08/08/211213 Last Action: Continued Insulin Glargine,Hum.rec.anlog (Lantus) 100 Unit/1 Ml Vial, 60 UNIT SQ BID, (Reported) Entered as Reported by: MICH GIVENS on 11/26/18 102 Last Action: Held Insulin Lispro (Humalog) 100 Unit/1 Ml Vial, 30 UNITS SC TIDAC, (Reported) Entered as Reported by: MICH GIVENS on 11/26/18 1028 Last Action: Held Losartan Potassium (Losartan Potassium) 100 Mg Tablet, 100 MG PO DAILY, (Reported) Entered as Reported by: NICK ROLON on 08/08/211213 Last Action: Held Meloxicam (Meloxicam) 15 Mg Tablet, 15 MG PO DAILY, (Reported) Entered as Reported by: NICK ROLON on 08/08/211213 Last Action: Converted Metoclopramide HCl (Metoclopramide HCl) 5 Mg Tablet, 5 MG PO ACHS PRN for NAUSEA/VOMITING-3RD LINE, (Reported) Entered as Reported by: NICK ROLON on 08/08/211213 Last Action: Continued Metoprolol Tartrate (Metoprolol Tartrate) 50 Mg Tablet, 25 MG PO BID, (Reported) Entered as Reported by: NICK ROLON on 08/08/211213 Last Action: Continued Ondansetron HCl (Ondansetron HCl) 4 Mg Tablet, 4 MG PO Q6H PRN for NAUSEA/VOMITING-1ST LINE, (Reported) Entered as Reported by: NICK ROLON on 08/08/211213 Last Action: Converted Pantoprazole Sodium (Pantoprazole Sodium) 40 Mg Tablet.dr, 40 MG PO BID, (Reported) Entered as Reported by: NICK ROLON on 08/08/211213 Last Action: Continued Pioglitazone HCl (Pioglitazone HCl) 15 Mg Tablet, 15 MG PO DAILY, (Reported) Entered as Reported by: NICK ROLON on 08/08/211213 Last Action: Held Prochlorperazine Maleate (Prochlorperazine Maleate) 5 Mg Tablet, 5 MG PO Q6H PRN for NAUSEA/VOMITING-4TH LINE, (Reported) Entered as Reported by: NICK ROLON on 08/08/211213 Last Action: Converted Sertraline HCl (Sertraline HCl) 100 Mg Tablet, 100 MG PO DAILY, (Reported) Entered as Reported by: MICH GIVENS on 11/26/18 1039 Last Action: Continued Sucralfate (Sucralfate) 1 Gm Tablet, 1 GM PO TIDAC, (Reported) Entered as Reported by: NICK ROLON on 08/08/21 1214 Last Action: Continued Tamsulosin HCl (Flomax) 0.4 Mg Cap, 0.4 MG PO DAILY, (Reported) Entered as Reported by: MICH GIVENS on 11/26/18 1025 Last Action: Continued Triamterene/Hydrochlorothiazid (Triamterene-Hctz 37.5-25 mg Cp) 1 Each Capsule, 1 EA PO DAILY, (Reported) Entered as Reported by: NICK ROLON on 08/08/21 1214 Last Action: Held Discontinued Medications Albuterol Sulfate (Proair Hfa) 1 Puff Puff, 2 PUFF INH Q4H PRN for SHORTNESS OF BREATH, (Reported) Discontinued Reason: Duplicate Order Entered as Reported by: MICH GIVENS on 11/26/18 1043 Last Action: Discontinued Bethanechol Chloride (Urecholine) 10 Mg Tablet, 10 MG PO ACHS Discontinued Reason: No Longer Taking Prescribed by: RAMEZ NGO on 12/11/18 1224 Last Action: Discontinued Glycopyrrolate/Formoterol Fum (Bevespi Aerosphere Inhaler) 10.7 Gm Hfa.aer.ad, 2 PUFF INH BID, (Reported) Discontinued Reason: Duplicate Order Entered as Reported by: MICH GIVENS on 11/26/18 1028 Last Action: Discontinued Insulin Glargine,Hum.rec.anlog (Lantus) 100 Unit/1 Ml Vial, 80 UNITS SC HS, (Reported) Discontinued Reason: Duplicate Order Entered as Reported by: MICH GIVENS on 11/26/18 1025 Last Action: Discontinued Meloxicam (Meloxicam) 7.5 Mg Tablet, 7.5 MG PO DAILY, (Reported) Discontinued Reason: Prescription changed Entered as Reported by: MICH GIVENS on 11/26/18 1039 Metoprolol Succinate (Metoprolol Succinate) 50 Mg Tab.er.24h, 50 MG PO DAILY Discontinued Reason: Duplicate Order Prescribed by: RAMEZ NGO on 12/08/18 1051 Last Action: Discontinued Pantoprazole Sodium (Protonix) 40 Mg Tablet., 40 MG PO DAILY Discontinued Reason: Duplicate Order Prescribed by: JABIER ALVARENGA on 10/09/20 8976 Last Action: Discontinued Past Zhwsvng-Xrhnnq-Hmdwwn Hx Reviewed Nursing Assessment Reviewed/Agree w Nursing PMH: Yes Family Medical History Significant Family History: No Pertinent Family Hx Family Medial History: Patient reports no known family medical history. Review of Systems-General Constitutional: No chills, No fever EENTM: hearing loss; No ear pain Respiratory: No cough; short of breath Cardiovascular: No chest pain; palpitations Gastrointestinal: abdominal pain; No hematemesis; melena; No nausea; vomiting Genitourinary: dysuria, frequency, incontinence Musculoskeletal: back pain, neck pain Skin: change in color, dryness, pruritus Psychiatric/Neurological: Denies Anxiety, Denies Depressed, Denies Emotional Problems All Other Systems Reviewed Negative Unless Noted: Yes (Negative excepted noted.) Physical Exam-General Problems Physical Exam General Appearance: WD/WN, no apparent distress HEENT: PERRL/EOMI, normal ENT inspection Neck: non-tender, supple Respiratory: chest non-tender, no respiratory distress, no accessory muscle use Cardiovascular: no JVD, irregularly irregular Gastrointestinal: non tender, soft, no organomegaly, other (scars from prior surgeries in RUQ and central ) Rectal: deferred Back: no CVA tenderness, no vertebral tenderness Extremities: non-tender, normal inspection, no calf tenderness Neurologic/Psychiatric: no motor/sensory deficits, alert, oriented x 3 Skin: warm/dry, other (dry UE and LE b/l) Lymphatic: no adenopathy Assessment/Plan Assessment/Plan Assessment/Plan Urinary Retention -Catheter was in place that helped relieve his retention, Monitor with bladder scan and post void to make sure emptying. Continue meds Flomax finasteride urocholine COPD -Continue on oxygen, Albuterol/Ipratropium, PT and OT. HTN -Monitor BP Hx Lung Cancer s/p Radiation & 1st Round of Chemotherapy Supervisory-Addendum Brief Verification & Attestation Participated in pt care: history, MDM, physical Personally performed: exam, history, MDM, supervision of care Care discussed with: Medical Student Procedures: n/a Results interpretation: Verified all documentation Verification and Attestation of Medical Student E/M Service A medical student performed and documented this service in my presence. I reviewed and verified all information documented by the medical student and made modifications to such information, when appropriate. I personally performed the physical exam and medical decision making. Jabier Alvarenga, Aug 08, 2021,15:09 CHRISTIAN MARQUEZ Aug 08, 2021 09:33 JABIER ALVARENGA DO Aug 09, 2021 11:06
[2021-08-08] MEDS: dilTIAZem120 MG (CARDIZEM CD) CAP PO SCH ×2 (09:36→21:13)
[2021-08-08] MEDS: TAMSULOSIN 0.4 MG (FLOMAX) CAP PO SCH ×2 (09:36→21:11)
[2021-08-08] MEDS: APIXABAN 5 MG (ELIQUIS) TABLET PO SCH ×2 (09:36→21:11)
--- NOTE | 2021-08-08 10:12 | Progress Note - Cardiology ---
Cardiology SOAP Progress Note Subjective: Sitting up on the side of the bed States he feels much better than yesterday No c/o CP, palpitations Objective: I&O/Vital Signs 08/09/21 08/09/21 08/09/21 08/09/21 00:00 01:00 03:27 04:05 Temp 36.4 36.2 Pulse 90 80 67 Resp 19 18 B/P (MAP) 141/67 (91) 122/63 (82) Pulse Ox 90 92 90 O2 Delivery High Flow N/C Nasal Cannula High Flow N/C O2 Flow Rate 5.00 5.00 5.00 08/09/21 08/09/21 08/09/21 08/09/21 07:00 07:21 07:32 09:39 Temp 36.8 36.5 Pulse 63 63 86 Resp 18 20 B/P (MAP) 135/63 (87) 149/64 Pulse Ox 92 92 91 O2 Delivery High Flow N/C Nasal Cannula Nasal Cannula O2 Flow Rate 5.00 5.00 5.00 08/09/21 00:00 Intake Total 2220 ml Output Total 2150 ml Balance 70 ml Weight (Pounds): 354 Weight (Ounces): 8.0 Weight (Calculated Kilograms): 160.151696 Constitutional: AAO x 3, well-developed, well-nourished Respiratory: No accessory muscle use, No respiratory distress; chest expansion is symmetric, chest is bilaterally symmetric, other (diminished throughout) Cardiovascular: irregularly irregular; No JVD; S1 and S2 Gastrointestional: distended; No guarding; audible bowel sounds (hyperactive BS) Genital/Rectal: other (urinary catheter in place to DD) Extremities: other (bilat pitting edema) Neurologic/Psychiatric: grossly intact (moves all extremities) Skin: No rash on exposed areas, No ulcerations on exposed areas Results/Procedures: Labs Laboratory Tests 08/08/21 11:33: Glucometer 396H 08/08/21 14:00: Vancomycin Level Trough 14.7 08/08/21 15:55: Glucometer 206H 08/08/21 20:08: Glucometer 148H 08/09/21 03:42: White Blood Count 3.2L, Red Blood Count 2.13L, Hemoglobin 6.3#*L, Hematocrit 22L , Mean Corpuscular Volume 104H, Mean Corpuscular Hemoglobin 30, Mean Corpuscular Hemoglobin Concent 29L, Red Cell Distribution Width 20.5H, Platelet Count 79L, Mean Platelet Volume 10.7, Immature Granulocyte % (Auto) 1, Neutrophils (%) (Auto) 90H, Lymphocytes (%) (Auto) 7L, Monocytes (%) (Auto) 3, Eosinophils (%) (Auto) 0, Basophils (%) (Auto) 0, Neutrophils # (Auto) 2.8, Lymphocytes # (Auto) 0.2L, Monocytes # (Auto) 0.1, Eosinophils # (Auto) 0.0, Basophils # (Auto) 0.0, Immature Granulocyte # (Auto) 0.0, Percent Immature Platelet Fraction 4.8, Sodium Level 137, Potassium Level 3.5L, Chloride Level 107, Carbon Dioxide Level 24, Anion Gap 6, Blood Urea Nitrogen 16, Creatinine 0.69, Estimat Glomerular Filtration Rate 97, BUN/Creatinine Ratio 23, Glucose Level 151H, Calcium Level 7.1L, Corrected Calcium 8.2L, Total Bilirubin 0.6, Aspartate Amino Transf (AST/SGOT) 15, Alanine Aminotransferase (ALT/SGPT) 10, Alkaline Phosphatase 73, Total Protein 4.5L, Albumin 2.6L 08/09/21 06:06: Glucometer 176H Microbiology 08/07/21 Blood Culture - Preliminary, Resulted No growth A/P: Assessment: Pneumonia - management per medical services Lung cancer - chemo tx - follows at [facility] Minimal troponin elevation - prob Type 2 [place] secondary to hypoxia PAF/flutter - [place] Dr. Da Silva[place] [facility] [place] - first dx on 07-21-21. Exhibits NSR with first deg AV block on ECG done on 08/07/21 at this hospital - follows with Dr. Ford of cardiology services at [facility] - OAC with Hung H/o COPD JULIAN - non-compliant with tx Hypertension Hyperlipidemia, by history Diabetes mellitus II, followed and managed by primary care physician Obesity, BMI is approx 41 H/o large pulmonary embolism in the early 1999s; h/o IVC filter in TTE of 12/04/18: LVEF 55-65%, grade 2 diastolic dysfunction of LV, PASP 52 mmHg, no evidence of endocarditis. 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
--- NOTE | 2021-08-08 10:55 | Progress Note ---
Subjective Date Seen by a Provider: Aug 08, 2021 Time Seen by a Provider: 11:00 Subjective/Events-last exam Patient dramatically improved today Steroids probably have helped Nebulizer treatments very helpful too Refresh Tears ordered Remeron started for severe insomnia Altered steroid timing so to not disturb sleep cycle Hemoglobin monitoring Blood sugars elevated will increase insulin Review of Systems General: Fatigue, Malaise Focused Exam Lactate Level 08/07/21 13:00: Lactic Acid Level 0.72 Objective Exam Last Set of Vital Signs Vital Signs Date Time Temp Pulse Resp B/P (MAP) Pulse Ox O2 Delivery O2 Flow Rate FiO2 08/08/21 07:33 96 Nasal Cannula 5.00 08/08/21 07:00 98 08/08/21 04:17 37.0 22 152/70 (97) Capillary Refill : I&O Intake and Output 08/08/21 00:00 Intake Total 960 ml Output Total 3100 ml Balance -2140 ml Intake Oral 960 ml Output Urine Total 3100 ml General: Alert, Oriented X3, Cooperative, No Acute Distress Lungs: Clear to Auscultation, Normal Air Movement Heart: Regular Rate, Normal S1, Normal S2, No Murmurs Neuro: Normal Gait, Normal Speech, Strength at 5/5 X4 Ext, Normal Tone Psych/Mental Status: Mental Status NL, Mood NL Results Lab Laboratory Tests 08/07/21 12:49: Glucometer 238H 08/07/21 13:00: White Blood Count 3.7L, Red Blood Count 2.79L, Hemoglobin 8.4L, Hematocrit 28L, Mean Corpuscular Volume 100H, Mean Corpuscular Hemoglobin 30, Mean Corpuscular Hemoglobin Concent 30L, Red Cell Distribution Width 20.7H, Platelet Count 89L, Mean Platelet Volume 11.1, Immature Granulocyte % (Auto) 1, Neutrophils (%) (Auto) 71, Lymphocytes (%) (Auto) 14, Monocytes (%) (Auto) 13H, Eosinophils (%) (Auto) 1, Basophils (%) (Auto) 1, Neutrophils # (Auto) 2.6, Lymphocytes # (Auto) 0.5L, Monocytes # (Auto) 0.5, Eosinophils # (Auto) 0.1, Basophils # (Auto) 0.0, Immature Granulocyte # (Auto) 0.0, Percent Immature Platelet Fraction 5.5, Sodium Level 137, Potassium Level 4.3, Chloride Level 97L, Carbon Dioxide Level 33H, Anion Gap 7, Blood Urea Nitrogen 14, Creatinine 0.88, Estimat Glomerular Filtration Rate 90, BUN/Creatinine Ratio 16, Glucose Level 258H, Lactic Acid Level 0.72, Calcium Level 8.6, Corrected Calcium 9.1, Total Bilirubin 2.0H, Aspartate Amino Transf (AST/SGOT) 16, Alanine Aminotransferase (ALT/SGPT) 8, Alkaline Phosphatase 115, Troponin I 0.032H, B-Type Natriuretic Peptide 342.7H, Total Protein 6.1L, Albumin 3.4 08/07/21 14:30: Urine Color YELLOW, Urine Clarity CLEAR, Urine pH 6.0, Urine Specific Cord 1.020, Urine Protein NEGATIVE, Urine Glucose (UA) NEGATIVE, Urine Ketones NEGATIVE, Urine Nitrite NEGATIVE, Urine Bilirubin NEGATIVE, Urine Urobilinogen 0.2, Urine Leukocyte Esterase 1+H, Urine RBC (Auto) 3+H, Urine RBC 10-25H, Urine WBC 10-25H, Urine Squamous Epithelial Cells NONE, Urine Renal Epithelial Cells NONE, Urine Crystals NONE, Urine Bacteria NEGATIVE, Urine Casts NONE, Urine Mucus NEGATIVE, Urine Culture Indicated NO 08/07/21 15:55: Glucometer 329H 08/07/21 20:07: Glucometer 378H 08/07/21 22:11: Glucometer 374H 08/08/21 02:04: Glucometer 317H 08/08/21 05:21: Glucometer 347H 08/08/21 05:42: White Blood Count 2.7L, Red Blood Count 2.60L, Hemoglobin 8.0L, Hematocrit 26L, Mean Corpuscular Volume 101H, Mean Corpuscular Hemoglobin 31, Mean Corpuscular Hemoglobin Concent 31L, Red Cell Distribution Width 20.4H, Platelet Count 88L, Mean Platelet Volume 11.8, Immature Granulocyte % (Auto) 1, Neutrophils (%) (Auto) 91H, Lymphocytes (%) (Auto) 5L, Monocytes (%) (Auto) 4, Eosinophils (%) (Auto) 0, Basophils (%) (Auto) 0, Neutrophils # (Auto) 2.5, Lymphocytes # (Auto) 0.1L, Monocytes # (Auto) 0.1, Eosinophils # (Auto) 0.0, Basophils # (Auto) 0.0, Immature Granulocyte # (Auto) 0.0, Neutrophils % (Manual) 90, Lymphocytes % (Manual) 5, Monocytes % (Manual) 3, Eosinophils % (Manual) 0, Basophils % (Manual) 0, Band Neutrophils 2, Polychromasia SLIGHT, Anisocytosis MODERATE, Macrocytosis SLIGHT, Elliptocytes SLIGHT, Sodium Level 135, Potassium Level 4.1, Chloride Level 97L, Carbon Dioxide Level 27, Anion Gap 11, Blood Urea Nitrogen 17, Creatinine 0.94, Estimat Glomerular Filtration Rate 85, BUN/Creatinine Ratio 18, Glucose Level 385H, Calcium Level 8.6, Corrected Calcium 9.2, Total Bilirubin 1.3H, Aspartate Amino Transf (AST/SGOT) 14, Alanine Aminotransferase (ALT/SGPT) 10, Alkaline Phosphatase 104, Total Protein 6.0L, Albumin 3.2 Assessment/Plan Assessment/Plan Assess & Plan/Chief Complaint Assessment: Hospital-acquired pneumonia placed on meropenem and vancomycin Acute on chronic respiratory failure Hypercapnia on ABG from [place] yesterday 7. Supplemental oxygen at home COPD with exacerbation placed on IV steroids JULIAN noncompliant with CPAP BPH Urinary retention requiring Ibarra catheter now dc and voiding well Chronic UTIs Lung cancer status post 1 round of chemotherapy 4 weeks ago Severe anemia requiring 1 unit of blood last week on 07/30/2021 Status post severe constipation now resolved Cirrhosis has appoint with hematology Dr. Skaggs at on 08/19/2021 Thrombocytopenia Leukopenia Hypertension Hyperlipidemia Atrial fibrillation diagnosis during previous hospital stay 2 weeks ago transition to [facility] this hospital stay and DC Lovenox Left lower extremity DVT status post Lovenox treatment now on [facility] Morbid obesity BMI 41 [place] filter placement 20 years ago Gastrointestinal perforation 20 years ago requiring extensive surgery Insomnia Dry eyes Plan: IV antibiotics Nebulizers Cardiology consult [facility] long-term at discharge to [place] 08/08/21: Much improved status Nebs Steroids PT OT Clinical Quality Measures Admission Status Admission Dx Assessment: Hospital-acquired pneumonia placed on meropenem and vancomycin Acute on chronic respiratory failure Hypercapnia on ABG from [place] today 7.3 Supplemental oxygen at home COPD JULIAN noncompliant with CPAP BPH Urinary retention requiring Ibarra catheter Chronic UTIs Lung cancer status post 1 round of chemotherapy 4 weeks ago Severe anemia requiring 1 unit of blood last week on 07/30/2021 Status post severe constipation now resolved Cirrhosis has appoint with hematology Dr. Skaggs at on 08/19/2021 Thrombocytopenia Leukopenia Hypertension Hyperlipidemia Atrial fibrillation diagnosis during previous hospital stay 2 weeks ago transition to [facility] this hospital stay and DC Lovenox Left lower extremity DVT status post Lovenox treatment now on Eliquis Morbid obesity BMI 41 [place] filter placement 20 years ago Gastrointestinal perforation 20 years ago requiring extensive surgery Plan: IV antibiotics Nebulizers Cardiology consult [facility] long-term at discharge to R[facility] Kenney DO Aug 08, 2021 10:55
--- NOTE | 2021-08-08 11:57 | Occupational Ther Daily Note ---
OT Current Status-Daily Note Subjective Pt seated EOB, agreeable to OT Tx. Pt states he feels better today. Mental Status/Objective Patient Orientation: Normal For Age Attachments: Oxygen ADL-Treatment Therapy Code Descriptions/Definitions Functional [place] Measure: 0=Not Assessed/NA 4=Minimal Assistance 1=Total Assistance 5=Supervision or Setup 2=Maximal Assistance 6=Modified [place] 3=Moderate Assistance 7=Complete IndependenceSCALE: Activities may be completed with or without assistive devices. 0-Jwldfwsvqz-cyddpyr completes the activity by him/herself with no assistance from a helper. 5-Set-up or Clean-up Assistance-helper sets up or cleans up; patient completes activity. [place] assists only prior to or following the activity. 4-Supervision or Touching Assistance-helper provides verbal cues and/or touching/steadying and/or contact guard assistance as patient completes activity. Assistance may be provided throughout the activity or intermittently. 3-Partial/Moderate Assistance-helper does LESS THAN HALF the effort. [place] lifts, holds or supports trunk or limbs, but provides less than half the effort. 2-Substantial/Maximal Assistance-helper does MORE THAN HALF the effort. [place] lifts or holds trunk or limbs and provides more than half the effort. 6-Cgyepfbot-ytuhjf does ALL the effort. Patient does none of the effort to complete the activity. Or, the assistance of 2 or more helpers is required for the patient to complete the activity. If activity was not attempted, code reason: 7-Patient Refused. 9-Not Applicable-not attempted and the patient did not perform the activity before the current illness, exacerbation or injury. 10-Not Attempted due to Environmental Limitations-(lack of equipment, weather restraints, etc.). 88-Not Attempted due to Medical Conditions or Safety Concerns. Lower Body Dressing (QC): 7 On/Off Footwear: 7 Toileting Hygiene (QC): 7 Other Treatment Pt at EOB, agreeable to OT tx. Pt declined ADLs at this time. OT attempted to provide education on AE for LE dressing. Pt indicates he has a sock aide and launch operator at home, but they do not work for him and he is not interested in attempting again. OT then provided education on energy conservation techniques, including spacing out harder tasks throughout the day, increasing rest breaks, and sitting for tasks as able. Pt indicates he already knows all of this infor mation. Post tx, pt seated EOB, call light in reach and all need met. Education OT Patient Education: Correct positioning, Energy conservation, Modified ADL techniques, Progress toward Goal/Update tx plan, Purpose of tx/functional activities Teaching Recipient: Patient Teaching Methods: Discussion Response to Teaching: Verbalize Understanding OT [employer] Indirect [employer] Crewmember Goals [employer] Indirect [employer] Crewmember Goals Time Frame: Aug 23, 2021 Eating (QC): 6 Oral Hygiene (QC): 5 Toileting Hygiene (QC): 6 Shower/Bathe Self (QC): 4 Upper Body Dressing (QC): 5 Lower Body Dressing (QC): 5 On/Off Footwear (QC): 3 1=Demonstrate adherence to instructed precautions during ADL tasks. 2=Patient will verbalize/demonstrate understanding of assistive devices/modifications for ADL. 3=Patient will improve strength/tolerance for activity to enable patient to perform ADL's. OT Education/Plan Problem List/Assessment Assessment: Decreased Activ Tolerance, Decreased UE Strength, Impaired Funct Balance, Impaired I ADL's, Impaired Self-Care Skills Discharge Recommendations Plan/Recommendations: Continue POC Treatment Plan/Plan of Care Patient would benefit from OT for education, treatment and training to promote independence in ADL's, mobility, safety and/or upper extremity function for ADL's. Plan of Care: ADL Retraining, Functional Mobility, Group Exercise/Act as Ind, UE Funct Exercise/Act Treatment Duration: Aug 23, 2021 Frequency: 3 times per week (3-5x/week) Estimated Hrs Per Day: .25 hour per day Agreement: Yes Rehab Potential: Fair Time/GCodes Start Time: 11:25 Stop Time: 11:34 Total Time Billed (hr/min): 9 Billed Treatment Time 1, AROLDO HARP OT Aug 08, 2021 11:57
[2021-08-08 12:00] VITALS: BP 125/78
[2021-08-08] MEDS ORDERED: FUROSEMIDE 40 MG/4 ML INJ (LASIX) IVP ONE (12:00)
--- NOTE | 2021-08-08 12:02 | Physical Therapy Daily Note ---
PT Daily Note-Current Subjective Patient presented sitting EOB and agreed to ambulate with physical therapy. Mental Status Patient Orientation: Person, Place, Time, Situation Attachments: Oxygen (5L NC) Transfers SCALE: Activities may be completed with or without assistive devices. 0-Ixrhxyazda-nebkyti completes the activity by him/herself with no assistance from a helper. 5-Set-up or Clean-up Assistance-helper sets up or cleans up; patient completes activity. [place] assists only prior to or following the activity. 4-Supervision or Touching Assistance-helper provides verbal cues and/or touching/steadying and/or contact guard assistance as patient completes activity. Assistance may be provided throughout the activity or intermittently. 3-Partial/Moderate Assistance-helper does LESS THAN HALF the effort. [place] lifts, holds or supports trunk or limbs, but provides less than half the effort. 2-Substantial/Maximal Assistance-helper does MORE THAN HALF the effort. [place] lifts or holds trunk or limbs and provides more than half the effort. 8-Azvnphmrn-vfzrdu does ALL the effort. Patient does none of the effort to complete the activity. Or, the assistance of 2 or more helpers is required for the patient to complete the activity. If activity was not attempted, code reason: 7-Patient Refused. 9-Not Applicable-not attempted and the patient did not perform the activity before the current illness, exacerbation or injury. 10-Not Attempted due to Environmental Limitations-(lack of equipment, weather restraints, etc.). 88-Not Attempted due to Medical Conditions or Safety Concerns. Sit to Stand (QC): 4 Patient was SBA for sit to stand transfer. Patient requested to sit EOB post tx. Gait Training Does the Patient Walk?: Yes Distance: 150' Walk 10 feet (QC): 4 Walk 50 ft with 2 Turns(QC): 4 Walk 150 ft (QC): 4 Gait Assistive Device: FWW Patient ambulated for 150' with SBA. Patient had to stop walking due to SOA. Assessment Patient performed sit to stand transfer and ambulated with physical therapy. Patient required SBA for all transfers and ambulation but reported SOA after ambulation. Patient was left post tx sitting EOB and talking with his physician. PT Talent Acquisition Partner Goals Senior Living Goals PT Senior Living Goals Time Frame: Aug 17, 2021 Roll Left & Right (QC): 6 Sit to Lying (QC): 6 Lying-Sitting on Side/Bed(QC): 6 Sit to Stand (QC): 6 Chair/Szy-cw-Mcikv Xfer(QC): 6 Toilet Transfer (QC): 6 Does the Patient Walk: Yes Walk 10 feet (QC): 6 Walk 50ft with 2 Turns (QC): 6 Walk 150 ft (QC): 4 PT Plan Problem List Problem List: Activity Tolerance, Functional Strength, Safety, Balance, Gait, Transfer, Bed Mobility, ROM Treatment/Plan Treatment Plan: Continue Plan of Care Treatment Plan: Bed Mobility, Education, Functional Activity Leela, Functional Strength, Gait, Safety, Therapeutic Exercise, Transfers Treatment Duration: Aug 17, 2021 Frequency: 6 times per week Estimated Hrs Per Day: .25 hour per day Patient and/or Family Agrees t: Yes Time/GCodes Time In: 1142 Time Out: 1150 Total Billed Treatment Time: 8 Total Billed Treatment 1 Visit FA 8 min NANY LOCK PT Aug 08, 2021 12:02
[2021-08-08] MEDS: ARTIFICAL TEARS 0.4 ML UNIT DOSE (REFRESH PLUS) OU SCH ×3 (12:06→21:12)
[2021-08-08] MEDS ORDERED: PANT40TA52 PO (12:14)
[2021-08-08] MEDS ORDERED: SUCR1TAB PO (12:14)
[2021-08-08] MEDS ORDERED: PROC5TAB9 PO (12:14)
[2021-08-08] MEDS ORDERED: DILT-27 PO (12:14)
[2021-08-08] MEDS ORDERED: LOSA100T57 PO (12:14)
[2021-08-08] MEDS ORDERED: MELO15TA39 PO (12:14)
[2021-08-08] MEDS ORDERED: GABA300C PO (12:14)
[2021-08-08] MEDS ORDERED: METO50TA15 PO (12:14)
[2021-08-08] MEDS ORDERED: FURO40TA4 PO (12:14)
[2021-08-08] MEDS ORDERED: TRIA1CAP4 PO (12:14)
[2021-08-08] MEDS ORDERED: ONDA-105 PO (12:14)
[2021-08-08] MEDS ORDERED: PIOG15TA67 PO (12:14)
[2021-08-08] MEDS ORDERED: ATOR40TA70 PO (12:14)
[2021-08-08] MEDS ORDERED: CRAN400T3 PO (12:14)
[2021-08-08] MEDS ORDERED: CYCL10TA25 PO (12:14)
[2021-08-08] MEDS ORDERED: METO5TAB2 PO (12:14)
[2021-08-08] MEDS ORDERED: FLUT1BLS12 IH (12:23)
[2021-08-08] MEDS ORDERED: AMLO-250 PO (12:30)
[2021-08-08] MEDS ORDERED: TROUGH ORDER-PHARMACY XX NR (14:00)
[2021-08-08 15:30] VITALS: BP_SYST 126; BP_SYST 137; BP_DIAS 58; BP_DIAS 81
--- NOTE | 2021-08-08 17:09 | Progress Note - Cardiology ---
Cardiology SOAP Progress Note Objective: I&O/Vital Signs 08/08/21 08/08/21 08/08/21 08/08/21 07:00 07:33 08:00 12:00 Temp 36.0 36.0 Pulse 98 91 90 Resp 20 20 B/P (MAP) 128/60 (82) 125/78 (94) Pulse Ox 96 90 92 O2 Delivery Nasal Cannula High Flow N/C High Flow N/C O2 Flow Rate 5.00 5.00 5.00 08/08/21 08/08/21 08/08/21 13:00 14:53 15:30 Temp 37.2 Pulse 111 86 Resp 20 B/P (MAP) 126/58 (80) Pulse Ox 89 90 O2 Delivery Nasal Cannula High Flow N/C O2 Flow Rate 5.00 5.00 08/08/21 00:00 Intake Total 960 ml Output Total 3100 ml Balance -2140 ml Weight (Pounds): 354 Weight (Ounces): 8.0 Weight (Calculated Kilograms): 160.763865 Constitutional: AAO x 3, well-developed, well-nourished Respiratory: No accessory muscle use, No respiratory distress; chest expansion is symmetric, chest is bilaterally symmetric, other (diminished throughout) Cardiovascular: irregularly irregular; No JVD; S1 and S2 Gastrointestional: distended; No guarding; audible bowel sounds (hyperactive BS) Genital/Rectal: other (urinary catheter in place to DD) Extremities: other (bilat pitting edema) Neurologic/Psychiatric: grossly intact (moves all extremities) Skin: No rash on exposed areas, No ulcerations on exposed areas Results/Procedures: Labs Laboratory Tests 08/07/21 20:07: Glucometer 378H 08/07/21 22:11: Glucometer 374H 08/08/21 02:04: Glucometer 317H 08/08/21 05:21: Glucometer 347H 08/08/21 05:42: White Blood Count 2.7L, Red Blood Count 2.60L, Hemoglobin 8.0L, Hematocrit 26L, Mean Corpuscular Volume 101H, Mean Corpuscular Hemoglobin 31, Mean Corpuscular Hemoglobin Concent 31L, Red Cell Distribution Width 20.4H, Platelet Count 88L, Mean Platelet Volume 11.8, Immature Granulocyte % (Auto) 1, Neutrophils (%) (Auto) 91H, Lymphocytes (%) (Auto) 5L, Monocytes (%) (Auto) 4, Eosinophils (%) (Auto) 0, Basophils (%) (Auto) 0, Neutrophils # (Auto) 2.5, Lymphocytes # (Auto) 0.1L, Monocytes # (Auto) 0.1, Eosinophils # (Auto) 0.0, Basophils # (Auto) 0.0, Immature Granulocyte # (Auto) 0.0, Neutrophils % (Manual) 90, Lymphocytes % (Manual) 5, Monocytes % (Manual) 3, Eosinophils % (Manual) 0, Basophils % (Manual) 0, Band Neutrophils 2, Polychromasia SLIGHT, Anisocytosis MODERATE, Macrocytosis SLIGHT, Elliptocytes SLIGHT, Sodium Level 135, Potassium Level 4.1, Chloride Level 97L, Carbon Dioxide Level 27, Anion Gap 11, Blood Urea Nitrogen 17, Creatinine 0.94, Estimat Glomerular Filtration Rate 85, BUN/Creatinine Ratio 18, Glucose Level 385H, Calcium Level 8.6, Corrected Calcium 9.2, Total Bilirubin 1.3H, Aspartate Amino Transf (AST/SGOT) 14, Alanine Aminotransferase (ALT/SGPT) 10, Alkaline Phosphatase 104, Total Protein 6.0L, Albumin 3.2 08/08/21 11:33: Glucometer 396H 08/08/21 14:00: Vancomycin Level Trough 14.7 08/08/21 15:55: Glucometer 206H Microbiology 08/07/21 Blood Culture - Preliminary, Resulted No growth A/P: Assessment: Pneumonia - management per medical services Lung cancer - chemo tx - follows at [facility] Minimal troponin elevation - prob Type 2 [place] secondary to hypoxia PAF/flutter, by history - [place]. Da Silva[place] [facility] [place] first dx on 07-21-21. Exhibits NSR with first deg AV block on ECG done on 08/07/21 at this hospital - follows with Dr. Ford of cardiology services at [facility] - OAC with Eliquis - Echo of 08/07/21: LVEF 55-60%, grade 2 diastolic dysfunction, enlargement of RV and both atria, aortic valve sclerosis without stenosis H/o COPD JULIAN - non-compliant with tx Hypertension Hyperlipidemia, by history Diabetes mellitus II, followed and managed by primary care physician Obesity, BMI is approx 41 H/o large pulmonary embolism in the early 1999s; h/o IVC filter in TTE of 12/04/18: LVEF 55-65%, grade 2 diastolic dysfunction of LV, PASP 52 mmHg, no evidence of endocarditis. 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
[2021-08-08 19:10] VITALS: BP 135/60
[2021-08-08] MEDS: diphenhydrAMINE 25 MG TAB (BENADRYL) PO PRN (21:10)
[2021-08-08] MEDS: MIRTAZAPINE 15 MG (REMERON) TAB PO SCH (21:11)
[2021-08-09] VITALS (10 sets, daily range): BP systolic 114–149; BP diastolic 49–74
[2021-08-09] MEDS: VANCOMYCIN 2000 MG/NS 500 ML IVPB IV SCH ×4 (03:10→15:41)
[2021-08-09] MEDS: RT-ALBUTEROL/IPRATROPIUM 3 ML (DUONEB) VIAL INH SCH ×4 (03:27→21:39)
[2021-08-09 03:50] LABS: BASOPHILS % (AUTO) 0 % (0-10); EOSINOPHILS % (AUTO) 0 % (0-10); MEAN CORPUSCULAR VOLUME 104 fL (80-99)
[2021-08-09 03:52] LABS: HEMATOCRIT 22 % (40-54); LYMPHOCYTES # (AUTO) 0.2 10^3/uL (1.0-4.0); LYMPHOCYTES % (AUTO) 7 % (12-44); MEAN CORPUSCULAR HEMOGLOBIN 30 pg (25-34); MEAN CORPUSCULAR HGB CONC 29 g/dL (32-36); MEAN PLATELET VOLUME 10.7 fL (9.0-12.2); MONOCYTES # (AUTO) 0.1 10^3/uL (0.0-1.0); MONOCYTES % (AUTO) 3 % (0-12); NEUTROPHILS # (AUTO) 2.8 10^3/uL (1.8-7.8); NEUTROPHILS % (AUTO) 90 % (42-75); PLATELET COUNT 79 10^3/uL (130-400); WHITE BLOOD COUNT 3.2 10^3/uL (4.3-11.0)
[2021-08-09 03:53] LABS: HEMOGLOBIN 6.3 g/dL (13.3-17.7)
[2021-08-09 03:59] LABS: ALBUMIN 2.6 GM/DL (3.2-4.5)
[2021-08-09 04:00] LABS: POTASSIUM 3.5 MMOL/L (3.6-5.0)
[2021-08-09 04:01] LABS: CALCIUM 7.1 MG/DL (8.5-10.1)
[2021-08-09 04:02] LABS: TOTAL PROTEIN 4.5 GM/DL (6.4-8.2)
[2021-08-09 04:04] LABS: BILIRUBIN,TOTAL 0.6 MG/DL (0.1-1.0)
[2021-08-09 04:06] LABS: CREATININE SERUM 0.69 MG/DL (0.60-1.30)
[2021-08-09] MEDS: CEFEPIME 1,000 MG/NS 50 ML IVPB IV SCH ×8 (05:22→23:49)
[2021-08-09] MEDS: BETHANECHOL 25 MG (URECHOLINE) TAB PO SCH ×4 (05:22→20:57)
[2021-08-09] MEDS: inSUlin ASPART (NovoLOG) 1 UNIT/0.01 ML (CHARGE PER UNIT) SC SCH ×7 (05:23→21:02)
[2021-08-09] MEDS ORDERED: NS IV 500 ML 500 ML IV SCH ×2 (05:45)
[2021-08-09] MEDS ORDERED: METOCLOPRAMIDE 5 MG (REGLAN) TAB PO PRN (05:45)
[2021-08-09] MEDS ORDERED: CYCLOBENZAPRINE 10 MG (FLEXERIL) TAB PO PRN (06:00)
[2021-08-09] MEDS ORDERED: PROCHLORPERAZINE 10 MG TAB (COMPAZINE) PO PRN (06:15)
[2021-08-09] MEDS ORDERED: ONDANSETRON 4 MG (ZOFRAN) ORAL DISSOLVE TAB PO PRN (06:15)
--- NOTE | 2021-08-09 06:19 | Progress Note ---
Subjective Date Seen by a Provider: Aug 09, 2021 Time Seen by a Provider: 10:30 Subjective/Events-last exam Patient doing much better Transfusion necessary due to hemoglobin 6.3 We will give Lasix 20 mg IV x1 after transfusion Overall breathing a lot better Bowels not moving so will take laxatives Voiding well no issues Checked meds and labs Review of Systems General: Fatigue, Malaise Focused Exam Lactate Level 08/07/21 13:00: Lactic Acid Level 0.72 Objective Exam Last Set of Vital Signs Vital Signs Date Time Temp Pulse Resp B/P (MAP) Pulse Ox O2 Delivery O2 Flow Rate FiO2 08/09/21 04:05 36.2 67 18 122/63 (82) 90 High Flow N/C 5.00 Capillary Refill : I&O l Intake and Output 08/08/21 23:59 Intake Total 3465 ml Output Total 2800 ml Balance 665 ml Intake Oral 1700 ml IV Total 1765 ml Output Urine Total 2800 ml # Voids 4 # Bowel Movements 2 General: Alert, Oriented X3, Cooperative, No Acute Distress Lungs: Clear to Auscultation, Normal Air Movement Heart: Regular Rate, Normal S1, Normal S2, No Murmurs Neuro: Normal Gait, Normal Speech, Strength at 5/5 X4 Ext, Normal Tone Psych/Mental Status: Mental Status NL, Mood NL Results Lab Laboratory Tests 08/08/21 11:33: Glucometer 396H 08/08/21 14:00: Vancomycin Level Trough 14.7 08/08/21 15:55: Glucometer 206H 08/08/21 20:08: Glucometer 148H 08/09/21 03:42: White Blood Count 3.2L, Red Blood Count 2.13L, Hemoglobin 6.3#*L, Hematocrit 22L , Mean Corpuscular Volume 104H, Mean Corpuscular Hemoglobin 30, Mean Corpuscular Hemoglobin Concent 29L, Red Cell Distribution Width 20.5H, Platelet Count 79L, Mean Platelet Volume 10.7, Immature Granulocyte % (Auto) 1, Neutrophils (%) (Auto) 90H, Lymphocytes (%) (Auto) 7L, Monocytes (%) (Auto) 3, Eosinophils (%) (Auto) 0, Basophils (%) (Auto) 0, Neutrophils # (Auto) 2.8, Lymphocytes # (Auto) 0.2L, Monocytes # (Auto) 0.1, Eosinophils # (Auto) 0.0, Basophils # (Auto) 0.0, Immature Granulocyte # (Auto) 0.0, Percent Immature Platelet Fraction 4.8, Sodium Level 137, Potassium Level 3.5L, Chloride Level 107, Carbon Dioxide Level 24, Anion Gap 6, Blood Urea Nitrogen 16, Creatinine 0.69, Estimat Glomerular Filtration Rate 97, BUN/Creatinine Ratio 23, Glucose Level 151H, Calcium Level 7.1L, Corrected Calcium 8.2L, Total Bilirubin 0.6, Aspartate Amino Transf (AST/SGOT) 15, Alanine Aminotransferase (ALT/SGPT) 10, Alkaline Phosphatase 73, Total Protein 4.5L, Albumin 2.6L 08/09/21 06:06: Glucometer 176H Microbiology 08/07/21 Blood Culture - Preliminary, Resulted No growth Assessment/Plan Assessment/Plan Assess & Plan/Chief Complaint Assessment: Hospital-acquired pneumonia placed on meropenem and vancomycin Acute on chronic respiratory failure Hypercapnia on ABG from [place] yesterday 7.38 Supplemental oxygen at home COPD with exacerbation placed on IV steroids JULIAN noncompliant with CPAP BPH Urinary retention requiring Ibarra catheter now dc and voiding well Chronic UTIs Lung cancer status post 1 round of chemotherapy 4 weeks ago Severe anemia requiring 1 unit of blood last week on 07/30/2021 and again today 08/09/2021 Status post severe constipation now resolved but needs to take laxatives Cirrhosis has appointment with hepatology Dr. Skaggs at on 08/19/2021 Thrombocytopenia Leukopenia Hypertension Hyperlipidemia Atrial fibrillation diagnosis during previous hospital stay 2 weeks ago transition to [facility] this hospital stay and DC Lovenox Left lower extremity DVT status post Lovenox treatment now on Eliquis Morbid obesity BMI 41 Barnard filter placement 20 years ago Gastrointestinal perforation 20 years ago requiring extensive surgery Insomnia Dry eyes Plan: IV antibiotics Nebulizers Cardiology consult [facility] jail at discharge to [place] 08/08/21: Much improved status Nebs Steroids PT OT 08/09/2021: Await senior living approval Increase insulin Maintain steroids Maintain nebs Transfuse Clinical Quality Measures Admission Status Admission Dx Assessment: Hospital-acquired pneumonia placed on meropenem and vancomycin Acute on chronic respiratory failure Hypercapnia on ABG from [place] today 7.3 Supplemental oxygen at home COPD JULIAN noncompliant with CPAP BPH Urinary retention requiring Ibarra catheter Chronic UTIs Lung cancer status post 1 round of chemotherapy 4 weeks ago Severe anemia requiring 1 unit of blood last week on 07/30/2021 Status post severe constipation now resolved Cirrhosis has appoint with hematology Dr. Skaggs at on 08/19/2021 Thrombocytopenia Leukopenia Hypertension Hyperlipidemia Atrial fibrillation diagnosis during previous hospital stay 2 weeks ago transition to [facility] this hospital stay and DC Lovenox Left lower extremity DVT status post Lovenox treatment now on Eliquis Morbid obesity BMI 41 Marlon filter placement 20 years ago Gastrointestinal perforation 20 years ago requiring extensive surgery Plan: IV antibiotics Nebulizers Cardiology consult [facility] home at discharge to RAMEZ Kenney DO Aug 09, 2021 06:19
[2021-08-09] MEDS: CYANOCOBALAMIN 1,000 MCG (VITAMIN B-12) TABLET PO SCH (06:45)
[2021-08-09] MEDS: SUCRALFATE 1 GM (CARAFATE) TAB PO SCH ×3 (06:45→17:13)
[2021-08-09] MEDS: RT--FLUTICASONE/SALMETEROL 113-14 (AIRDUO RespiCLICK) IH SCH ×2 (07:29→21:39)
[2021-08-09] MEDS ORDERED: FUROSEMIDE 40 MG/4 ML INJ (LASIX) IVP NR (08:00)
--- NOTE | 2021-08-09 08:15 | Progress Note - Surgery ---
ANGELINE TERRELL MED STUDENT 08/09/21 0815: Subjective Date Seen by a Provider: Aug 09, 2021 Time Seen by a Provider: 07:40 Subjective/Events-last exam Patient reports continuing urinary urgency. Denies burning, pain, dribbling, or discharge. Denies chest pain, fevers/chills, headache, nausea, vomiting, and abdominal pain. Reports continuing SOB which he states is improving and chronic back pain. Tolerating po intake without difficulty. Reports bowels are moving. Review of Systems General: No Chills, No Night Sweats; Fatigue, Malaise HEENT: No Head Aches, No Visual Changes Pulmonary: Dyspnea, Cough; No Pleuritic Chest Pain Cardiovascular: Edema; No: Chest Pain, Palpitations Gastrointestinal: No: Nausea, Vomiting, Abdominal Pain Genitourinary: No Dysuria, No Frequency, No Incontinence; Hematuria (Reports pink tinged color of urine), Other (Reports urinary urgency) Musculoskeletal: back pain (chronic); No: neck pain Neurological: No: Weakness, Numbness, Change in speech, Confusion Focused Exam Lactate Level 08/07/21 13:00: Lactic Acid Level 0.72 Objective Exam Vital Signs Date Time Temp Pulse Resp B/P (MAP) Pulse Ox O2 Delivery O2 Flow Rate FiO2 08/09/21 07:32 92 Nasal Cannula 5.00 08/09/21 07:21 36.8 63 18 135/63 (87) 92 High Flow N/C 5.00 08/09/21 07:00 63 08/09/21 04:05 36.2 67 18 122/63 (82) 90 High Flow N/C 5.00 08/09/21 03:27 92 Nasal Cannula 5.00 08/09/21 01:00 80 08/09/21 00:00 36.4 90 19 141/67 (91) 90 High Flow N/C 5.00 08/08/21 21:56 91 Nasal Cannula 5.00 08/08/21 20:00 Nasal Cannula 5.00 08/08/21 19:10 37.2 84 20 135/60 (85) 92 High Flow N/C 5.00 08/08/21 19:00 85 08/08/21 15:30 37.2 86 20 126/58 (80) 90 High Flow N/C 5.00 08/08/21 14:53 89 Nasal Cannula 5.00 08/08/21 13:00 111 08/08/21 12:00 36.0 90 20 125/78 (94) 92 High Flow N/C 5.00 I & O 08/09/21 06:59 Intake Total 3040 ml Output Total 2650 ml Balance 390 ml Capillary Refill : General Appearance: WD/WN, Chronically ill, Obese HEENT: PERRL/EOMI, Moist Mucous Membranes Neck: Full Range of Motion, Non Tender Respiratory: Chest Non Tender, No Accessory Muscle Use, No Respiratory Distress; No Crackles, No Rales; Rhonci; No Wheezing Cardiovascular: No Gallop, No JVD, No Murmur, Normal Peripheral Pulses, Irre gularly Irregular Peripheral Pulses: 2+ Dorsalis Pedis (R), 2+ Left Dors-Pedis (L), 2+ Radial Pulses (R), 2+ Radial Pulses (L) Gastrointestinal: normal bowel sounds, soft, tenderness (Epigastric region to light palpation), hernia (along central incision ), other (scars from prior surgeries in RUQ and central ) Extremity: Normal Capillary Refill, Non Tender, No Calf Tenderness, Pedal Edema, Swelling, Other (Chronic brownish discoloration of BLE, worse over anteromedial aspect of legs) Neurologic/Psychiatric: Alert, Oriented x3, Normal Mood/Affect Skin: Warm/Dry, Ecchymosis (scattered bruises on arms and legs), Other (brownish discoloration to BLE) Lymphatic: No Adenopathy Results Lab Laboratory Tests 08/08/21 11:33: Glucometer 396H 08/08/21 14:00: Vancomycin Level Trough 14.7 08/08/21 15:55: Glucometer 206H 08/08/21 20:08: Glucometer 148H 08/09/21 03:42: White Blood Count 3.2L, Red Blood Count 2.13L, Hemoglobin 6.3#*L, Hematocrit 22L , Mean Corpuscular Volume 104H, Mean Corpuscular Hemoglobin 30, Mean Corpuscular Hemoglobin Concent 29L, Red Cell Distribution Width 20.5H, Platelet Count 79L, Mean Platelet Volume 10.7, Immature Granulocyte % (Auto) 1, Neutrophils (%) (Auto) 90H, Lymphocytes (%) (Auto) 7L, Monocytes (%) (Auto) 3, Eosinophils (%) (Auto) 0, Basophils (%) (Auto) 0, Neutrophils # (Auto) 2.8, Lymphocytes # (Auto) 0.2L, Monocytes # (Auto) 0.1, Eosinophils # (Auto) 0.0, Basophils # (Auto) 0.0, Immature Granulocyte # (Auto) 0.0, Percent Immature Platelet Fraction 4.8, Sodium Level 137, Potassium Level 3.5L, Chloride Level 107, Carbon Dioxide Level 24, Anion Gap 6, Blood Urea Nitrogen 16, Creatinine 0.69, Estimat Glomerular Filtration Rate 97, BUN/Creatinine Ratio 23, Glucose Level 151H, Calcium Level 7.1L, Corrected Calcium 8.2L, Total Bilirubin 0.6, Aspartate Amino Transf (AST/SGOT) 15, Alanine Aminotransferase (ALT/SGPT) 10, Alkaline Phosphatase 73, Total Protein 4.5L, Albumin 2.6L 08/09/21 06:06: Glucometer 176H Microbiology 08/07/21 Blood Culture - Preliminary, Resulted No growth Assessment/Plan Assessment/Plan Assessment/Plan Hospital acquired pneumonia Acute on chronic respiratory failure AECOPD Acute Anemia Acute Urinary Retention Hematuria Pancytopenia New onset afib Anticoagulated Lung cancer s/p recent chemo IDDM JULIAN-noncompliant BPH Chronic UTIs Anemia requiring blood transfusion Cirrhosis H/o recent LLE DVT H/o PE remotely H/o IVC filter placement H/o recent severe constipation HTN HLP Morbid obesity Continue bethanechol, flomax, and finasteride Denies dysuria, frequency, discharge, and dribbling. Reports continued severe urinary urgency. Patient reports pink tinged urine when voiding Hold eliquis as has hematuria and hgb dropped today Bladder scan PRN and post void residuals Hgb dropped from 8.0 yesterday to 6.3 today, 1 unit PRBC ordered Continue current medical management JABIER HERNANDES DO 08/09/21 1116: Subjective Subjective/Events-last exam Urinating still but having urgency. Urine pink tinged. Had drop in hgb receiving blood. Bowels functioning.Some shortness of breath. Denies n/v fever sweats chills or chest pain. Objective Exam General Appearance: Chronically ill, Obese HEENT: PERRL/EOMI Neck: Full Range of Motion, Non Tender Respiratory: Chest Non Tender, No Accessory Muscle Use, No Respiratory Distress Cardiovascular: Regular Rate, Rhythm, No JVD Gastrointestinal: soft, tenderness (Epigastric region to light palpation), other (scars from prior surgeries in RUQ and central ) Extremity: Non Tender, No Calf Tenderness, Other (Chronic brownish discoloration of BLE, worse over anteromedial aspect of legs) Neurologic/Psychiatric: Alert, Oriented x3, Normal Mood/Affect Skin: Warm/Dry, Ecchymosis (scattered bruises on arms and legs) Lymphatic: No Adenopathy Assessment/Plan Assessment/Plan Assessment/Plan Urinary retention urinating without difficulty has some urgency, continue meds, if feels having retention bladder scan anemia -receiving prbc hematuria, on anticoaguation held this morning would recommend holding till hematuria/anemia improved Supervisory-Addendum Brief Verification & Attestation Participated in pt care: history, MDM, physical Personally performed: exam, history, MDM, supervision of care Care discussed with: Medical Student Procedures: n/a Results interpretation: Verified all documentation Verification and Attestation of Medical Student E/M Service A medical student performed and documented this service in my presence. I reviewed and verified all information documented by the medical student and made modifications to such information, when appropriate. I personally performed the physical exam and medical decision making. Jabier Hernandes, Aug 09, 2021,11:16 ANGELINE TERRELL MED STUDENT Aug 09, 2021 08:15 JABIER HERNANDES DO Aug 09, 2021 11:16
[2021-08-09] MEDS: SENNOSIDES 8.6 MG (SENOKOT) TAB PO SCH ×2 (08:51→20:58)
[2021-08-09] MEDS: MELOXICAM 7.5 MG (MOBIC) TABLET PO SCH (08:51)
[2021-08-09] MEDS: DOCUSATE SODIUM 100 MG (COLACE) CAP PO SCH ×2 (08:51→20:57)
[2021-08-09] MEDS: PANTOPRAZOLE 40 MG (PROTONIX) TAB PO SCH ×2 (08:52→20:58)
[2021-08-09] MEDS: GABAPENTIN 300 MG (NEURONTIN) CAP PO SCH ×3 (08:52→20:57)
[2021-08-09] MEDS: SERTRALINE 100 MG (ZOLOFT) TAB PO SCH (08:52)
[2021-08-09] MEDS: meTOprolol TARTRATE 50 MG (LOPRESSOR) TAB PO SCH ×2 (08:52→20:58)
[2021-08-09] MEDS: LORATADINE (CLARITIN) 10 MG TAB PO SCH (08:52)
[2021-08-09] MEDS: FINASTERIDE (PROSCAR) 5 MG TAB PO SCH (08:52)
[2021-08-09] MEDS: APIXABAN 5 MG (ELIQUIS) TABLET PO SCH ×2 (08:52→20:58)
[2021-08-09] MEDS: dilTIAZem120 MG (CARDIZEM CD) CAP PO SCH ×2 (08:52→20:58)
[2021-08-09] MEDS: ASPIRIN E.C. 81 MG (ECOTRIN) TAB PO SCH (08:52)
[2021-08-09] MEDS: ARTIFICAL TEARS 0.4 ML UNIT DOSE (REFRESH PLUS) OU SCH ×4 (08:53→20:58)
[2021-08-09] MEDS: methylPREDNISolone 125 MG (Solu-MEDROL) VIAL IVP SCH ×2 (08:53→20:58)
[2021-08-09] MEDS ORDERED: NON-FORMULARY MEDICATION 1 EA EA (Cranberry Fruit (Cranberry) 400 MG) PO SCH (09:00)
--- NOTE | 2021-08-09 09:10 | Physical Therapy Daily Note ---
PT Daily Note-Current Subjective Patient presented sitting EOB and reported he needed to use the bathroom. Transfers SCALE: Activities may be completed with or without assistive devices. 7-[id number] completes the activity by him/herself with no assistance from a helper. 5-Set-up or Clean-up Assistance-helper sets up or cleans up; patient completes activity. Leeper assists only prior to or following the activity. 4-Supervision or Touching Assistance-helper provides verbal cues and/or touching/steadying and/or contact guard assistance as patient completes activity. Assistance may be provided throughout the activity or intermittently. 3-Partial/Moderate Assistance-helper does LESS THAN HALF the effort. Leeper lifts, holds or supports trunk or limbs, but provides less than half the effort. 2-Substantial/Maximal Assistance-helper does MORE THAN HALF the effort. Leeper lifts or holds trunk or limbs and provides more than half the effort. 0-Sczzhyunt-uhgzhv does ALL the effort. Patient does none of the effort to complete the activity. Or, the assistance of 2 or more helpers is required for the patient to complete the activity. If activity was not attempted, code reason: 7-Patient Refused. 9-Not Applicable-not attempted and the patient did not perform the activity before the current illness, exacerbation or injury. 10-Not Attempted due to Environmental Limitations-(lack of equipment, weather restraints, etc.). 88-Not Attempted due to Medical Conditions or Safety Concerns. Sit to Stand (QC): 4 Toilet Transfer (QC): 4 Patient requires SBA for all transfers. Gait Training Does the Patient Walk?: Yes Distance: 50' Walk 10 feet (QC): 4 Gait Assistive Device: FWW Patient requires SBA for ambulation within his room. Patient furniture walks and uses FWW for ambulation. Assessment Patient hemoglobin is significantly lower today and ambulation outside of the room was deemed not safe. Patient ambulated to the bathroom then back to EOB with SBA. Patient was left post tx sitting EOB with nurse call, phone, and all needs met. PT Bar Back Goals Senior Care Goals PT Bar Back Goals Time Frame: Aug 17, 2021 Roll Left & Right (QC): 6 Sit to Lying (QC): 6 Lying-Sitting on Side/Bed(QC): 6 Sit to Stand (QC): 6 Chair/[id number]-jt-Vafcj Xfer(QC): 6 Toilet Transfer (QC): 6 Does the Patient Walk: Yes Walk 10 feet (QC): 6 Walk 50ft with 2 Turns (QC): 6 Walk 150 ft (QC): 4 PT Plan Problem List Problem List: Activity Tolerance, Functional Strength, Safety, Balance, Gait, Transfer, Bed Mobility, ROM Treatment/Plan Treatment Plan: Continue Plan of Care Treatment Plan: Bed Mobility, Education, Functional Activity Leela, Functional Strength, Gait, Safety, Therapeutic Exercise, Transfers Treatment Duration: Aug 17, 2021 Frequency: 6 times per week Estimated Hrs Per Day: .25 hour per day Patient and/or Family Agrees t: Yes Time/GCodes Time In: 816 Time Out: 826 Total Billed Treatment Time: 10 Total Billed Treatment 1 Visit FA 10 min NANY LOCK PT Aug 09, 2021 09:10
--- NOTE | 2021-08-09 09:58 | Progress Note - Cardiology ---
Cardiology SOAP Progress Note Subjective: Lying in bed receiving blood transfusion C/O gen fatigue C/O mild to mod SOB this morning No c/o CP or palpitations Objective: I&O/Vital Signs 08/11/21 08/11/21 08/11/21 08/11/21 20:55 22:23 22:26 23:06 Temp 36.0 Pulse 62 Resp 20 B/P (MAP) 150/70 (96) Pulse Ox 98 98 97 O2 Delivery Nasal Cannula Nasal Cannula Nasal Cannula Nasal Cannula O2 Flow Rate 4.00 4.00 4.00 3.50 08/12/21 08/12/21 08/12/21 08/12/21 00:58 03:29 07:00 07:22 Temp 36.5 36.2 Pulse 51 53 57 97 Resp 20 20 B/P (MAP) 105/64 (78) 137/70 (92) Pulse Ox 93 97 O2 Delivery Nasal Cannula Nasal Cannula O2 Flow Rate 3.50 3.50 08/12/21 07:26 Temp 37.0 Pulse 109 Resp 20 B/P (MAP) 176/76 (109) Pulse Ox 100 O2 Delivery Simple Mask O2 Flow Rate 3.50 08/12/21 00:00 Intake Total 3097 ml Balance 3097 ml Weight (Pounds): 354 Weight (Ounces): 8.0 Weight (Calculated Kilograms): [id number] Constitutional: AAO x 3, well-developed, well-nourished Respiratory: No accessory muscle use, No respiratory distress; chest expansion is symmetric, chest is bilaterally symmetric, other (diminished throughout) Cardiovascular: irregularly irregular; No JVD; S1 and S2 Gastrointestional: distended; No guarding; audible bowel sounds (hyperactive BS) Genital/Rectal: other (urinary catheter in place to DD) Extremities: other (bilat pitting edema) Neurologic/Psychiatric: grossly intact (moves all extremities) Skin: No rash on exposed areas, No ulcerations on exposed areas Results/Procedures: Labs Laboratory Tests 08/11/21 10:22: Glucometer 216H 08/11/21 15:09: Glucometer 56*L 08/11/21 15:59: Glucometer 83 08/11/21 20:15: Glucometer 129H 08/12/21 05:20: White Blood Count 4.6, Red Blood Count 3.22L, Hemoglobin 9.7L, Hematocrit 33L, Mean Corpuscular Volume 101H, Mean Corpuscular Hemoglobin 30, Mean Corpuscular Hemoglobin Concent 30L, Red Cell Distribution Width 20.2H, Platelet Count 68L, Mean Platelet Volume 11.1, Immature Granulocyte % (Auto) 1, Neutrophils (%) (Auto) 80H, Lymphocytes (%) (Auto) 10L, Monocytes (%) (Auto) 8, Eosinophils (%) (Auto) 0, Basophils (%) (Auto) 0, Neutrophils # (Auto) 3.7, Lymphocytes # (Auto) 0.5L, Monocytes # (Auto) 0.4, Eosinophils # (Auto) 0.0, Basophils # (Auto) 0.0, Immature Granulocyte # (Auto) 0.1, Percent Immature Platelet Fraction 5.6, Sodium Level 136, Potassium Level 4.3, Chloride Level 100, Carbon Dioxide Level 26, Anion Gap 10, Blood Urea Nitrogen 25H, Creatinine 1.00, Estimat Glomerular Filtration Rate 78, BUN/Creatinine Ratio 25, Glucose Level 104, Calcium Level 8.8, Corrected Calcium 9.4, Total Bilirubin 0.7, Aspartate Amino Transf (AST/SGOT) 26, Alanine Aminotransferase (ALT/SGPT) 27, Alkaline Phosphatase 103, Total Protein 5.6L, Albumin 3.3 Microbiology 08/07/21 Blood Culture - Preliminary, Resulted No growth A/P: Assessment: Pneumonia - management per medical services Anemia - undetermined etiology - management per medical services Lung cancer - chemo tx - follows at [facility] Minimal troponin elevation - prob Type 2 W[place] secondary to hypoxia PAF/flutter, by history - [place] [facility] [place] first dx on 07-21-21. Exhibits NSR with first deg AV block on ECG done on 08/07/21 at this hospital - follows with Dr. Ford of cardiology services at [facility] - OAC with Eliquis - Echo of 08/07/21: LVEF 55-60%, grade 2 diastolic dysfunction, enlargement of RV and both atria, aortic valve sclerosis without stenosis H/o COPD JUILAN - non-compliant with tx Hypertension Hyperlipidemia, by history Diabetes mellitus II, followed and managed by primary care physician Obesity, BMI is approx 41 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
--- NOTE | 2021-08-09 10:23 | Occupational Ther Daily Note ---
OT Current Status-Daily Note Subjective Pt in bed, agreeable to OT Tx, pt currently receiving blood transfusion Mental Status/Objective Patient Orientation: Normal For Age Attachments: IV, Oxygen ADL-Treatment Therapy Code Descriptions/Definitions Functional [place] Measure: 0=Not Assessed/NA 4=Minimal Assistance 1=Total Assistance 5=Supervision or Setup 2=Maximal Assistance 6=Modified [place] 3=Moderate Assistance 7=Complete IndependenceSCALE: Activities may be completed with or without assistive devices. 7-Mleauqxicy-mltefky completes the activity by him/herself with no assistance from a helper. 5-Set-up or Clean-up Assistance-helper sets up or cleans up; patient completes a ctivity. [place] assists only prior to or following the activity. 4-Supervision or Touching Assistance-helper provides verbal cues and/or touching/steadying and/or contact guard assistance as patient completes activity. Assistance may be provided throughout the activity or intermittently. 3-Partial/Moderate Assistance-helper does LESS THAN HALF the effort. [place] lifts, holds or supports trunk or limbs, but provides less than half the effort. 2-Substantial/Maximal Assistance-helper does MORE THAN HALF the effort. [place] lifts or holds trunk or limbs and provides more than half the effort. 9-Gyedaaeqd-atouba does ALL the effort. Patient does none of the effort to complete the activity. Or, the assistance of 2 or more helpers is required for the patient to complete the activity. If activity was not attempted, code reason: 7-Patient Refused. 9-Not Applicable-not attempted and the patient did not perform the activity before the current illness, exacerbation or injury. 10-Not Attempted due to Environmental Limitations-(lack of equipment, weather restraints, etc.). 88-Not Attempted due to Medical Conditions or Safety Concerns. Eating (QC): 6 On/Off Footwear: 6 Other Treatment Pt in bed, no OOB activities performed on this date due to low Hgb and pt receiving blood transfusion. Pt states he feels like he is at his PLOF with ADLs, and does not wish to have further OT services. Pt has been educated on AE and energy conservation techniques in previous session. Pt has AE at home, but doesn't use it because it doesn't work for him, and he isn't interested in trying AE again. Pt able to doff/don gripper socks at bed level, with rest breaks independently, no AE. OT educated pt on purpose and benefits of continued OT services, but pt requests to discharge from OT services at this time. OT informed pt if he has a decline in ADLs to let his nurse know and new orders can be sent, he verbalized understanding. Nursing aware. Post tx, pt in bed, call light in reach and all needs met. Education OT Patient Education: Correct positioning, Modified ADL techniques, Progress toward Goal/Update tx plan, Purpose of tx/functional activities Teaching Recipient: Patient Teaching Methods: Discussion Response to Teaching: Verbalize Understanding OT Product Marketing Manager Goals Product Marketing Manager Goals Time Frame: Aug 23, 2021 Eating (QC): 6 Oral Hygiene (QC): 5 Toileting Hygiene (QC): 6 Shower/Bathe Self (QC): 4 Upper Body Dressing (QC): 5 Lower Body Dressing (QC): 5 On/Off Footwear (QC): 3 1=Demonstrate adherence to instructed precautions during ADL tasks. 2=Patient will verbalize/demonstrate understanding of assistive devices/modifications for ADL. 3=Patient will improve strength/tolerance for activity to enable patient to perform ADL's. OT Education/Plan Problem List/Assessment Assessment: No Skilled OT Needs ID'd No skilled OT services indicated at this time. Pt reports he is at his PLOF with ADLs, and requests to be discharged from OT services. If pt has a decline in ADL function, please send new OT orders and another evaluation will be complete. Discharge Recommendations Plan/Recommendations: Discharge/Goals Met Treatment Plan/Plan of Care Patient would benefit from OT for education, treatment and training to promote independence in ADL's, mobility, safety and/or upper extremity function for ADL's. Plan of Care: ADL Retraining, Functional Mobility, Group Exercise/Act as Ind, UE Funct Exercise/Act Treatment Duration: Aug 23, 2021 Frequency: 3 times per week (3-5x/week) Estimated Hrs Per Day: .25 hour per day Agreement: Yes Rehab Potential: Fair Time/GCodes Start Time: 10:02 Stop Time: 10:10 Total Time Billed (hr/min): 8 Billed Treatment Time 1, ADL AROLDO GRIER OT Aug 09, 2021 10:23
[2021-08-09 14:24] LABS: HEMOGLOBIN 9.3 g/dL (13.3-17.7)
--- NOTE | 2021-08-09 15:42 | Progress Note - Cardiology ---
Cardiology SOAP Progress Note Subjective: Gen malaise Shortness of breath No cp or palp or syncope No n/v/d Objective: I&O/Vital Signs 08/09/21 08/09/21 08/09/21 08/09/21 04:05 07:00 07:21 07:32 Temp 36.2 36.8 Pulse 67 63 63 Resp 18 18 B/P (MAP) 122/63 (82) 135/63 (87) Pulse Ox 90 92 92 O2 Delivery High Flow N/C High Flow N/C Nasal Cannula O2 Flow Rate 5.00 5.00 5.00 08/09/21 08/09/21 08/09/21 08/09/21 08:00 09:39 10:01 11:08 Temp 36.5 36.3 36.7 Pulse 86 20 89 Resp 20 77 18 B/P (MAP) 149/64 144/74 133/62 (85) Pulse Ox 91 93 94 O2 Delivery Nasal Cannula Nasal Cannula Nasal Cannula High Flow N/C O2 Flow Rate 5.00 5.00 5.00 5.00 08/09/21 08/09/21 08/09/21 08/09/21 12:06 12:45 15:22 15:24 Temp 36.5 36.8 Pulse 62 62 61 Resp 20 20 B/P (MAP) 114/60 130/55 (80) Pulse Ox 94 93 94 O2 Delivery Nasal Cannula Nasal Cannula Nasal Cannula O2 Flow Rate 5.00 5.00 5.00 08/09/21 00:00 Intake Total 2220 ml Output Total 2150 ml Balance 70 ml Weight (Pounds): 354 Weight (Ounces): 8.0 Weight (Calculated Kilograms): [id number] Constitutional: AAO x 3, well-developed, well-nourished Respiratory: No accessory muscle use, No respiratory distress; chest expansion is symmetric, chest is bilaterally symmetric, other (diminished throughout) Cardiovascular: irregularly irregular; No JVD; S1 and S2 Gastrointestional: distended; No guarding; audible bowel sounds (hyperactive BS) Genital/Rectal: other (urinary catheter in place to DD) Extremities: other (bilat pitting edema) Neurologic/Psychiatric: grossly intact (moves all extremities) Skin: No rash on exposed areas, No ulcerations on exposed areas Results/Procedures: Labs Laboratory Tests 08/08/21 15:55: Glucometer 206H 08/08/21 20:08: Glucometer 148H 08/09/21 03:42: White Blood Count 3.2L, Red Blood Count 2.13L, Hemoglobin 6.3#*L, Hematocrit 22L , Mean Corpuscular Volume 104H, Mean Corpuscular Hemoglobin 30, Mean Corpuscular Hemoglobin Concent 29L, Red Cell Distribution Width 20.5H, Platelet Count 79L, Mean Platelet Volume 10.7, Immature Granulocyte % (Auto) 1, Neutrophils (%) (Auto) 90H, Lymphocytes (%) (Auto) 7L, Monocytes (%) (Auto) 3, Eosinophils (%) (Auto) 0, Basophils (%) (Auto) 0, Neutrophils # (Auto) 2.8, Lymphocytes # (Auto) 0.2L, Monocytes # (Auto) 0.1, Eosinophils # (Auto) 0.0, Basophils # (Auto) 0.0, Immature Granulocyte # (Auto) 0.0, Percent Immature Platelet Fraction 4.8, Sodium Level 137, Potassium Level 3.5L, Chloride Level 107, Carbon Dioxide Level 24, Anion Gap 6, Blood Urea Nitrogen 16, Creatinine 0.69, Estimat Glomerular Filtration Rate 97, BUN/Creatinine Ratio 23, Glucose Level 151H, Calcium Level 7.1L, Corrected Calcium 8.2L, Total Bilirubin 0.6, Aspartate Amino Transf (AST/SGOT) 15, Alanine Aminotransferase (ALT/SGPT) 10, Alkaline Phosphatase 73, Total Protein 4.5L, Albumin 2.6L 08/09/21 06:06: Glucometer 176H 08/09/21 11:14: Glucometer 348H 08/09/21 11:17: Glucometer 354H 08/09/21 14:15: Hemoglobin 9.3#L, Hematocrit 32L 08/09/21 15:21: Glucometer 292H Microbiology 08/07/21 Blood Culture - Preliminary, Resulted No growth Laboratory Tests 08/08/21 05:42 08/09/21 03:42 08/09/21 14:15 A/P: Assessment: Pneumonia - management per medical services Anemia - undetermined etiology - management per Medical services Lung cancer - chemo tx - follows at [facility] Minimal troponin elevation - prob Type 2 TX secondary to hypoxia PAF/flutter, by history - per Dr. Da Silva's notes [place] [facility] [place]-04-[place] - first dx on 07-21-21. Exhibits NSR with first deg AV block on ECG done on 08/07/21 at this hospital - follows with Dr. Ford of cardiology services at [facility] - OAC with Eliquis - Echo of 08/07/21: LVEF 55-60%, grade 2 diastolic dysfunction, enlargement of RV and both atria, aortic valve sclerosis without stenosis H/o COPD JULIAN - non-compliant with tx Hypertension Hyperlipidemia, by history Diabetes mellitus II, followed and managed by primary care physician Obesity, BMI is approx 41 H/o large pulmonary embolism in the early 1999s; h/o IVC filter in [facility] of 12/04/18: LVEF 55-65%, grade 2 diastolic dysfunction of LV, PASP 52 mmHg, no evidence of endocarditis. 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 If held, we recommend the investigation and treatment of bleeding source be carried out VELMA so that OAC can be resumed Monitor lab closely Replace electrolytes as indicated EDWIGE MORALES MD FACP [facility] CCDS Aug 09, 2021 15:42
[2021-08-09] MEDS: TAMSULOSIN 0.4 MG (FLOMAX) CAP PO SCH (17:13)
[2021-08-09] MEDS: MIRTAZAPINE 15 MG (REMERON) TAB PO SCH (20:57)
[2021-08-09] MEDS: diphenhydrAMINE 25 MG TAB (BENADRYL) PO PRN (20:57)
[2021-08-10] VITALS (7 sets, daily range): BP systolic 121–146; BP diastolic 59–69
[2021-08-10] MEDS: RT-ALBUTEROL/IPRATROPIUM 3 ML (DUONEB) VIAL INH SCH ×3 (01:53→22:12)
[2021-08-10] MEDS: VANCOMYCIN 2000 MG/NS 500 ML IVPB IV SCH ×4 (03:04→15:54)
[2021-08-10] MEDS: SUCRALFATE 1 GM (CARAFATE) TAB PO SCH ×3 (05:40→16:02)
[2021-08-10] MEDS: CEFEPIME 1,000 MG/NS 50 ML IVPB IV SCH ×8 (05:40→23:47)
[2021-08-10] MEDS: BETHANECHOL 25 MG (URECHOLINE) TAB PO SCH ×4 (05:40→20:43)
[2021-08-10] MEDS: CYANOCOBALAMIN 1,000 MCG (VITAMIN B-12) TABLET PO SCH (05:40)
[2021-08-10 06:52] LABS: BASOPHILS % (AUTO) 0 % (0-10); EOSINOPHILS % (AUTO) 0 % (0-10); HEMATOCRIT 30 % (40-54); LYMPHOCYTES # (AUTO) 0.3 10^3/uL (1.0-4.0); LYMPHOCYTES % (AUTO) 7 % (12-44); MEAN CORPUSCULAR HEMOGLOBIN 31 pg (25-34); MEAN CORPUSCULAR HGB CONC 30 g/dL (32-36); MEAN CORPUSCULAR VOLUME 103 fL (80-99); MEAN PLATELET VOLUME 10.9 fL (9.0-12.2); MONOCYTES # (AUTO) 0.2 10^3/uL (0.0-1.0); MONOCYTES % (AUTO) 4 % (0-12); NEUTROPHILS # (AUTO) 3.7 10^3/uL (1.8-7.8); NEUTROPHILS % (AUTO) 89 % (42-75); PLATELET COUNT 89 10^3/uL (130-400); WHITE BLOOD COUNT 4.2 10^3/uL (4.3-11.0)
[2021-08-10 07:05] LABS: ALBUMIN 3.4 GM/DL (3.2-4.5)
[2021-08-10 07:06] LABS: POTASSIUM 4.7 MMOL/L (3.6-5.0)
[2021-08-10 07:08] LABS: TOTAL PROTEIN 5.8 GM/DL (6.4-8.2)
[2021-08-10 07:10] LABS: BILIRUBIN,TOTAL 0.8 MG/DL (0.1-1.0)
[2021-08-10 07:12] LABS: CREATININE SERUM 0.9 MG/DL (0.60-1.30)
--- NOTE | 2021-08-10 07:33 | Progress Note ---
Subjective Date Seen by a Provider: Aug 10, 2021 Time Seen by a Provider: 10:30 Subjective/Events-last exam Patient doing well Wrapped his legs Increasing insulin High sugars are from steroids Eliquis and aspirin will be restarted Hemoglobin 9.0 after 1 unit of blood yesterday Check meds labs No pain is reported Breathing better Review of Systems General: Fatigue, Malaise Cardiovascular: Edema Focused Exam Lactate Level 08/07/21 13:00: Lactic Acid Level 0.72 Objective Exam Last Set of Vital Signs Vital Signs Date Time Temp Pulse Resp B/P (MAP) Pulse Ox O2 Delivery O2 Flow Rate FiO2 08/10/21 03:05 36.4 54 20 133/69 (90) 96 Nasal Cannula 5.00 Capillary Refill : I&O Intake and Output 08/10/21 00:00 Intake Total 2290 ml Output Total 1350 ml Balance 940 ml Intake Oral 1720 ml IV Total 570 ml Output Urine Total 1350 ml # Voids 6 General: Alert, Oriented X3, Cooperative, No Acute Distress Lungs: Clear to Auscultation, Normal Air Movement Heart: Regular Rate, Normal S1, Normal S2, No Murmurs Psych/Mental Status: Mental Status NL, Mood NL Results Lab Laboratory Tests 08/09/21 11:14: Glucometer 348H 08/09/21 11:17: Glucometer 354H 08/09/21 14:15: Hemoglobin 9.3#L, Hematocrit 32L 08/09/21 15:21: Glucometer 292H 08/09/21 20:49: Glucometer 297H 08/10/21 06:13: Glucometer 228H 08/10/21 06:15: White Blood Count 4.2L, Red Blood Count 2.89L, Hemoglobin 9.0L, Hematocrit 30L, Mean Corpuscular Volume 103H, Mean Corpuscular Hemoglobin 31, Mean Corpuscular Hemoglobin Concent 30L, Red Cell Distribution Width 21.5H, Platelet Count 89L, Mean Platelet Volume 10.9, Immature Granulocyte % (Auto) 1, Neutrophils (%) (Auto) 89H, Lymphocytes (%) (Auto) 7L, Monocytes (%) (Auto) 4, Eosinophils (%) (Auto) 0, Basophils (%) (Auto) 0, Neutrophils # (Auto) 3.7, Lymphocytes # (Auto) 0.3L, Monocytes # (Auto) 0.2, Eosinophils # (Auto) 0.0, Basophils # (Auto) 0.0, Immature Granulocyte # (Auto) 0.0, Sodium Level 134L, Potassium Level 4.7, Chloride Level 98, Carbon Dioxide Level 27, Anion Gap 9, Blood Urea Nitrogen 25H , Creatinine 0.90, Estimat Glomerular Filtration Rate 89, BUN/Creatinine Ratio 28, Glucose Level 238H, Calcium Level 9.0, Corrected Calcium 9.5, Total Bilirubin 0.8, Aspartate Amino Transf (AST/SGOT) 16, Alanine Aminotransferase (ALT/SGPT) 15, Alkaline Phosphatase 93, Total Protein 5.8L, Albumin 3.4 Microbiology 08/07/21 Blood Culture - Preliminary, Resulted No growth Assessment/Plan Assessment/Plan Assess & Plan/Chief Complaint Assessment: Hospital-acquired pneumonia placed on meropenem and vancomycin Acute on chronic respiratory failure Hypercapnia on ABG from [place] yesterday 7.38 Supplemental oxygen at home COPD with exacerbation placed on IV steroids JULIAN noncompliant with CPAP BPH Urinary retention requiring Ibarra catheter now dc and voiding well Chronic UTIs Lung cancer status post 1 round of chemotherapy 4 weeks ago Severe anemia requiring 1 unit of blood last week on 07/30/2021 and again today 08/09/2021 Status post severe constipation now resolved but needs to take laxatives Cirrhosis has appointment with hepatology Dr. Skaggs at on 08/19/2021 Thrombocytopenia Leukopenia Hypertension Hyperlipidemia Atrial fibrillation diagnosis during previous hospital stay 2 weeks ago transition to [facility] this hospital stay and DC Lovenox Left lower extremity DVT status post Lovenox treatment now on Eliquis Morbid obesity BMI 41 [place] filter placement 20 years ago Gastrointestinal perforation 20 years ago requiring extensive surgery Insomnia Dry eyes Plan: IV antibiotics Nebulizers Cardiology consult [facility] long term at discharge to [facility] 08/08/21: Much improved status Nebs Steroids PT OT 08/09/2021: Await shelter approval Increase insulin Maintain steroids Maintain nebs Transfuse 08/10/2021: Supportive care Wrap legs with Lucas wraps Wean off steroids Clinical Quality Measures Admission Status Admission Dx Assessment: Hospital-acquired pneumonia placed on meropenem and vancomycin Acute on chronic respiratory failure Hypercapnia on ABG from [facility] today 7.3 Supplemental oxygen at home COPD JULIAN noncompliant with CPAP BPH Urinary retention requiring Ibarra catheter Chronic UTIs Lung cancer status post 1 round of chemotherapy 4 weeks ago Severe anemia requiring 1 unit of blood last week on 07/30/2021 Status post severe constipation now resolved Cirrhosis has appoint with hematology Dr. Skaggs at on 08/19/2021 Thrombocytopenia Leukopenia Hypertension Hyperlipidemia Atrial fibrillation diagnosis during previous hospital stay 2 weeks ago transiti on to [facility] this hospital stay and DC Lovenox Left lower extremity DVT status post Lovenox treatment now on Eliquis Morbid obesity BMI 41 [place] filter placement 20 years ago Gastrointestinal perforation 20 years ago requiring extensive surgery Plan: IV antibiotics Nebulizers Cardiology consult [facility] long term at discharge to [facility] Kenney DO Aug 10, 2021 07:33
[2021-08-10] MEDS: inSUlin ASPART (NovoLOG) 1 UNIT/0.01 ML (CHARGE PER UNIT) SC SCH ×7 (07:42→20:44)
--- NOTE | 2021-08-10 08:49 | Progress Note - Surgery ---
ANGELINE TERRELL MED STUDENT 08/10/21 0848: Subjective Date Seen by a Provider: Aug 10, 2021 Time Seen by a Provider: 08:15 Subjective/Events-last exam Patient reports improvement in urinary urgency. Reports tolerating general diet well. Denies nausea, vomiting, headaches, chest pain, and dizziness. Reports last BM 2 days ago and is reporting increasing difficulty passing flatus although still able to do so. Reports abdomen feels "tighter" than yesterday and is tender diffusely across the abdomen at the level of the umbilicus. Reports nothing seems to make the pain better. Nothing makes the pain worse. Describes the pain as a dull cramp that's constant. Reports he's had this pain for the last 20 years and is unchanging. Hgb stable at 9 this am after 1 unit prbc yesterday. Review of Systems General: No Chills, No Night Sweats, No Fatigue, No Malaise HEENT: No Head Aches, No Visual Changes Pulmonary: Dyspnea (stable), Cough (nonproductive); No Pleuritic Chest Pain Cardiovascular: Edema (chronic BLE); No: Chest Pain, Palpitations Gastrointestinal: Abdominal Pain (chronic, dull achy pain across abdomen); No: Nausea, Vomiting, Diarrhea, Constipation, Melena, Hematochezia Musculoskeletal: No: neck pain, back pain Neurological: No: Weakness, Numbness, Change in speech, Confusion Focused Exam Lactate Level 08/07/21 13:00: Lactic Acid Level 0.72 Objective Exam Vital Signs Date Time Temp Pulse Resp B/P (MAP) Pulse Ox O2 Delivery O2 Flow Rate FiO2 08/10/21 07:54 36.1 52 20 136/64 (88) 94 Nasal Cannula 4.00 08/10/21 07:00 57 08/10/21 03:05 36.4 54 20 133/69 (90) 96 Nasal Cannula 5.00 08/10/21 01:00 53 08/09/21 23:50 36.5 60 20 141/61 (87) 95 Nasal Cannula 5.00 08/09/21 21:40 94 Nasal Cannula 5.00 08/09/21 20:50 Nasal Cannula 5.00 08/09/21 19:02 36.7 66 18 125/49 (74) 96 Nasal Cannula 5.00 08/09/21 19:00 65 08/09/21 15:24 94 Nasal Cannula 5.00 08/09/21 15:22 36.8 61 20 130/55 (80) 93 Nasal Cannula 5.00 08/09/21 12:45 62 08/09/21 12:06 36.5 62 20 114/60 94 Nasal Cannula 5.00 08/09/21 11:08 36.7 89 18 133/62 (85) 94 High Flow N/C 5.00 08/09/21 10:01 36.3 20 77 144/74 93 Nasal Cannula 5.00 08/09/21 09:39 36.5 86 20 149/64 91 Nasal Cannula 5.00 I & O 08/10/21 07:00 Intake Total 1720 ml Output Total 1125 ml Balance 595 ml Capillary Refill : General Appearance: No Apparent Distress, Chronically ill, Obese HEENT: PERRL/EOMI, Moist Mucous Membranes Neck: Full Range of Motion, Normal Inspection, Non Tender Respiratory: Chest Non Tender, No Accessory Muscle Use, No Respiratory Distress , Decreased Breath Sounds Cardiovascular: Regular Rate, Rhythm, Normal Peripheral Pulses Peripheral Pulses: 2+ Dorsalis Pedis (R), 2+ Left Dors-Pedis (L), 2+ Radial Pulses (R), 2+ Radial Pulses (L) Gastrointestinal: normal bowel sounds, tenderness (Epigastric region to light palpation), hernia (hernia along midline abdominal incision), other (scars from prior surgeries in RUQ and central ) Extremity: Normal Capillary Refill, Non Tender, No Calf Tenderness, Pedal Edema, Other (Chronic brownish discoloration of BLE, worse over anteromedial aspect of legs) Neurologic/Psychiatric: Alert, Oriented x3, Normal Mood/Affect Skin: Warm/Dry, Ecchymosis (scattered bruises on arms and legs), Other (Chronic brownish discoloration of BLE, worse over anteromedial aspect of legs) Lymphatic: No Adenopathy (Head and Neck) Results Lab Laboratory Tests 08/09/21 11:14: Glucometer 348H 08/09/21 11:17: Glucometer 354H 08/09/21 14:15: Hemoglobin 9.3#L, Hematocrit 32L 08/09/21 15:21: Glucometer 292H 08/09/21 20:49: Glucometer 297H 08/10/21 06:13: Glucometer 228H 08/10/21 06:15: White Blood Count 4.2L, Red Blood Count 2.89L, Hemoglobin 9.0L, Hematocrit 30L, Mean Corpuscular Volume 103H, Mean Corpuscular Hemoglobin 31, Mean Corpuscular Hemoglobin Concent 30L, Red Cell Distribution Width 21.5H, Platelet Count 89L, Mean Platelet Volume 10.9, Immature Granulocyte % (Auto) 1, Neutrophils (%) (Auto) 89H, Lymphocytes (%) (Auto) 7L, Monocytes (%) (Auto) 4, Eosinophils (%) (Auto) 0, Basophils (%) (Auto) 0, Neutrophils # (Auto) 3.7, Lymphocytes # (Auto) 0.3L, Monocytes # (Auto) 0.2, Eosinophils # (Auto) 0.0, Basophils # (Auto) 0.0, Immature Granulocyte # (Auto) 0.0, Sodium Level 134L, Potassium Level 4.7, Chloride Level 98, Carbon Dioxide Level 27, Anion Gap 9, Blood Urea Nitrogen 25H , Creatinine 0.90, Estimat Glomerular Filtration Rate 89, BUN/Creatinine Ratio 28, Glucose Level 238H, Calcium Level 9.0, Corrected Calcium 9.5, Total Bilirubin 0.8, Aspartate Amino Transf (AST/SGOT) 16, Alanine Aminotransferase (ALT/SGPT) 15, Alkaline Phosphatase 93, Total Protein 5.8L, Albumin 3.4 Microbiology 08/07/21 Blood Culture - Preliminary, Resulted No growth Assessment/Plan Assessment/Plan Assessment/Plan Hospital acquired pneumonia Acute on chronic respiratory failure AECOPD Acute Anemia-Stable S/P blood transfusion Acute Urinary Retention-Improving Gross Hematuria-Resolved Pancytopenia New onset afib Anticoagulated Lung cancer s/p recent chemo IDDM JULIAN-noncompliant BPH Chronic UTIs Anemia requiring blood transfusion Cirrhosis H/o recent LLE DVT H/o PE remotely H/o IVC filter placement H/o recent severe constipation HTN HLP Morbid obesity Patient reporting increasing difficulty with passing flatus and last BM 2 days ago. Reports abdomen feels "tighter" than usual. Denies N/V/D. These appear to be a chronic issue for the patient as he reports similar symptoms for years. Bowel regimen Continue bethanechol, flomax, and finasteride Denies dysuria, frequency, discharge, and dribbling. Reports continued urinary urgency, but improving slowly. Patient reports absence of pink/blood tinged urine now Continue eliquis and ASA Bladder scan PRN and post void residuals Hgb 9.0 this am s/p 1 unit prbc yesterday Continue current medical management Thank you for the consult, will sign off for now. If needed again please let surgery service know. JABIER HERNANDES DO 08/10/21 1345: Subjective Subjective/Events-last exam Patient urinating better without difficulty. Patient states no longer pink- tinged. Abdomen slightly uncomfortable. Worse earlier in the day but feeling better now. Hemoglobin stable. Denies any nausea vomiting fever sweats chills or chest pain at this time. Objective Exam General Appearance: No Apparent Distress, Chronically ill, Obese HEENT: PERRL/EOMI, Normal ENT Inspection, Moist Mucous Membranes Neck: Full Range of Motion, Non Tender Respiratory: Chest Non Tender, No Accessory Muscle Use, No Respiratory Distress Cardiovascular: Regular Rate, Rhythm, No JVD Gastrointestinal: normal bowel sounds, tenderness (Epigastric region very minimal), hernia (hernia along midline abdominal incision), other (scars from prior surgeries in RUQ and central ) Extremity: Non Tender, No Calf Tenderness, Pedal Edema, Other (Chronic brownish discoloration of BLE, worse over anteromedial aspect of legs) Neurologic/Psychiatric: Alert, Oriented x3, Normal Mood/Affect Skin: Warm/Dry, Ecchymosis (scattered bruises on arms and legs) Lymphatic: No Adenopathy (Head and Neck) Assessment/Plan Assessment/Plan Assessment/Plan Hospital acquired pneumonia Acute on chronic respiratory failure AECOPD Acute Anemia-Stable S/P blood transfusion Acute Urinary Retention-Improving Gross Hematuria-Resolved Pancytopenia New onset afib Anticoagulated Lung cancer s/p recent chemo IDDM JULIAN-noncompliant BPH Chronic UTIs Anemia requiring blood transfusion Cirrhosis H/o recent LLE DVT H/o PE remotely H/o IVC filter placement H/o recent severe constipation HTN HLP Morbid obesity Patient reporting increasing difficulty with passing flatus and last BM 2 days ago. Reports abdomen feels "tighter" than usual. Denies N/V/D. These appear to be a chronic issue for the patient as he reports similar symptoms for years. Bowel regimen Continue bethanechol, flomax, and finasteride Denies dysuria, frequency, discharge, and dribbling. Reports continued urinary urgency, but improving slowly. Patient reports absence of pink/blood tinged urine now Continue eliquis and ASA Bladder scan PRN and post void residuals Hgb 9.0 this am s/p 1 unit prbc yesterday Continue current medical management Thank you for the consult, will sign off for now. If needed again please let surgery service know. Supervisory-Addendum Brief Verification & Attestation Participated in pt care: history, MDM, physical Personally performed: exam, history, MDM, supervision of care Care discussed with: Medical Student Procedures: n/a Results interpretation: Verified all documentation Verification and Attestation of Medical Student E/M Service A medical student performed and documented this service in my presence. I r eviewed and verified all information documented by the medical student and made modifications to such information, when appropriate. I personally performed the physical exam and medical decision making. Jabier Hernandes, Aug 10, 2021,13:44 ANGELINE TERRELL MED STUDENT Aug 10, 2021 08:48 JABIER HERNANDES DO Aug 10, 2021 13:45
[2021-08-10] MEDS: PANTOPRAZOLE 40 MG (PROTONIX) TAB PO SCH ×2 (08:52→20:43)
[2021-08-10] MEDS: GABAPENTIN 300 MG (NEURONTIN) CAP PO SCH ×3 (08:52→20:44)
[2021-08-10] MEDS: LORATADINE (CLARITIN) 10 MG TAB PO SCH (08:52)
[2021-08-10] MEDS: ASPIRIN E.C. 81 MG (ECOTRIN) TAB PO SCH (08:52)
[2021-08-10] MEDS: SERTRALINE 100 MG (ZOLOFT) TAB PO SCH (08:52)
[2021-08-10] MEDS: MELOXICAM 7.5 MG (MOBIC) TABLET PO SCH (08:52)
[2021-08-10] MEDS: SENNOSIDES 8.6 MG (SENOKOT) TAB PO SCH ×2 (08:52→20:43)
[2021-08-10] MEDS: APIXABAN 5 MG (ELIQUIS) TABLET PO SCH ×2 (08:52→20:43)
[2021-08-10] MEDS: methylPREDNISolone 125 MG (Solu-MEDROL) VIAL IVP SCH ×2 (08:53→20:42)
[2021-08-10] MEDS: dilTIAZem120 MG (CARDIZEM CD) CAP PO SCH ×2 (08:53→20:43)
[2021-08-10] MEDS: meTOprolol TARTRATE 50 MG (LOPRESSOR) TAB PO SCH ×2 (08:53→20:43)
[2021-08-10] MEDS: FINASTERIDE (PROSCAR) 5 MG TAB PO SCH (08:53)
[2021-08-10] MEDS: DOCUSATE SODIUM 100 MG (COLACE) CAP PO SCH ×2 (08:53→20:44)
--- NOTE | 2021-08-10 09:23 | Physical Therapy Daily Note ---
PT Daily Note-Current Subjective Patient reports he is feeling better today. Mental Status Patient Orientation: Normal For Age Attachments: Oxygen Transfers SCALE: Activities may be completed with or without assistive devices. 3-Btpqguparm-uptdhia completes the activity by him/herself with no assistance from a helper. 5-Set-up or Clean-up Assistance-helper sets up or cleans up; patient completes activity. [place] assists only prior to or following the activity. 4-Supervision or Touching Assistance-helper provides verbal cues and/or touching/steadying and/or contact guard assistance as patient completes activity. Assistance may be provided throughout the activity or intermittently. 3-Partial/Moderate Assistance-helper does LESS THAN HALF the effort. [place] lifts, holds or supports trunk or limbs, but provides less than half the effort. 2-Substantial/Maximal Assistance-helper does MORE THAN HALF the effort. [place] lifts or holds trunk or limbs and provides more than half the effort. 3-Wqdvenoyv-emsezz does ALL the effort. Patient does none of the effort to complete the activity. Or, the assistance of 2 or more helpers is required for the patient to complete the activity. If activity was not attempted, code reason: 7-Patient Refused. 9-Not Applicable-not attempted and the patient did not perform the activity before the current illness, exacerbation or injury. 10-Not Attempted due to Environmental Limitations-(lack of equipment, weather restraints, etc.). 88-Not Attempted due to Medical Conditions or Safety Concerns. Sit to Stand (QC): 4 Gait Training Distance: 250' Walk 10 feet (QC): 4 Walk 50 ft with 2 Turns(QC): 4 Walk 150 ft (QC): 4 Gait Assistive Device: FWW SBA with all mobility/functional gait sequence Assessment Patient toileted independently. Patient continues to have endurance with functional activity. Increase as tolerated by patient. PT Penitentiary Goals Penitentiary Goals PT Founder And President Goals Time Frame: Aug 17, 2021 Roll Left & Right (QC): 6 Sit to Lying (QC): 6 Lying-Sitting on Side/Bed(QC): 6 Sit to Stand (QC): 6 Chair/Ach-or-Jycxt Xfer(QC): 6 Toilet Transfer (QC): 6 Does the Patient Walk: Yes Walk 10 feet (QC): 6 Walk 50ft with 2 Turns (QC): 6 Walk 150 ft (QC): 4 PT Plan Treatment/Plan Treatment Plan: Continue Plan of Care Treatment Plan: Bed Mobility, Education, Functional Activity Leela, Functional Strength, Gait, Safety, Therapeutic Exercise, Transfers Treatment Duration: Aug 17, 2021 Frequency: 6 times per week Estimated Hrs Per Day: .25 hour per day Patient and/or Family Agrees t: Yes Time/GCodes Time In: 901 Time Out: 910 Total Billed Treatment Time: 9 Total Billed Treatment 1 visit FA 9 min NANY LOCK PT Aug 10, 2021 09:23
[2021-08-10] MEDS: ARTIFICAL TEARS 0.4 ML UNIT DOSE (REFRESH PLUS) OU SCH ×4 (10:01→20:44)
[2021-08-10] MEDS: RT--FLUTICASONE/SALMETEROL 113-14 (AIRDUO RespiCLICK) IH SCH ×2 (10:10→22:11)
--- NOTE | 2021-08-10 15:52 | Progress Note - Cardiology ---
Cardiology SOAP Progress Note Subjective: Shortness of breath and weakness are better after transfusion, he says No cp or palp or syncope No n/v/d Objective: I&O/Vital Signs 08/10/21 08/10/21 08/10/21 08/10/21 07:00 07:54 08:00 10:07 Temp 36.1 Pulse 57 52 Resp 20 B/P (MAP) 136/64 (88) Pulse Ox 94 94 96 O2 Delivery Nasal Cannula Nasal Cannula Nasal Cannula O2 Flow Rate 4.00 4.00 4.00 08/10/21 08/10/21 08/10/21 08/10/21 10:07 10:13 11:30 12:48 Temp 36.1 36.6 Pulse 62 70 65 Resp 20 B/P (MAP) 139/61 (87) Pulse Ox 96 94 O2 Delivery Nasal Cannula Nasal Cannula O2 Flow Rate 2.00 2.00 08/09/21 23:59 Intake Total 1470 ml Output Total 850 ml Balance 620 ml Weight (Pounds): 354 Weight (Ounces): 8.0 Weight (Calculated Kilograms): 160.830322 Constitutional: AAO x 3, well-developed, well-nourished Respiratory: No accessory muscle use, No respiratory distress; chest expansion is symmetric, chest is bilaterally symmetric, other (diminished throughout) Cardiovascular: irregularly irregular; No JVD; S1 and S2 Gastrointestional: distended; No guarding; audible bowel sounds (hyperactive BS) Genital/Rectal: other (urinary catheter in place to DD) Extremities: other (bilat pitting edema) Neurologic/Psychiatric: grossly intact (moves all extremities) Skin: No rash on exposed areas, No ulcerations on exposed areas Results/Procedures: Labs Laboratory Tests 08/09/21 20:49: Glucometer 297H 08/10/21 06:13: Glucometer 228H 08/10/21 06:15: White Blood Count 4.2L, Red Blood Count 2.89L, Hemoglobin 9.0L, Hematocrit 30L, Mean Corpuscular Volume 103H, Mean Corpuscular Hemoglobin 31, Mean Corpuscular Hemoglobin Concent 30L, Red Cell Distribution Width 21.5H, Platelet Count 89L, Mean Platelet Volume 10.9, Immature Granulocyte % (Auto) 1, Neutrophils (%) (Auto) 89H, Lymphocytes (%) (Auto) 7L, Monocytes (%) (Auto) 4, Eosinophils (%) (Auto) 0, Basophils (%) (Auto) 0, Neutrophils # (Auto) 3.7, Lymphocytes # (Auto) 0.3L, Monocytes # (Auto) 0.2, Eosinophils # (Auto) 0.0, Basophils # (Auto) 0.0, Immature Granulocyte # (Auto) 0.0, Sodium Level 134L, Potassium Level 4.7, Chloride Level 98, Carbon Dioxide Level 27, Anion Gap 9, Blood Urea Nitrogen 25H , Creatinine 0.90, Estimat Glomerular Filtration Rate 89, BUN/Creatinine Ratio 28, Glucose Level 238H, Calcium Level 9.0, Corrected Calcium 9.5, Total Bilirubin 0.8, Aspartate Amino Transf (AST/SGOT) 16, Alanine Aminotransferase (ALT/SGPT) 15, Alkaline Phosphatase 93, Total Protein 5.8L, Albumin 3.4 08/10/21 10:06: Glucometer 315H 08/10/21 15:11: Glucometer 239H Microbiology 08/07/21 Blood Culture - Preliminary, Resulted No growth Laboratory Tests 08/09/21 03:42 08/09/21 14:15 08/10/21 06:15 A/P: Assessment: Pneumonia - management per medical services Anemia - undetermined etiology - management per Medical services Lung cancer - chemo tx - [facility] at [facility] Minimal troponin elevation - prob Type 2 SD secondary to hypoxia PAF/flutter, by history - [place] Silva[place] [facility] [place] first dx on 07-21-21. Exhibits NSR with first deg AV block on ECG done on 08/07/21 at this hospital - follows with Dr. Ford of cardiology services at [facility] - OAC with Eliquis - Echo of 08/07/21: LVEF 55-60%, grade 2 diastolic dysfunction, enlargement of RV and both atria, aortic valve sclerosis without stenosis H/o COPD JULIAN - non-compliant with tx Hypertension Hyperlipidemia, by history Diabetes mellitus II, followed and managed by primary care physician Obesity, BMI is approx 41 H/o large pulmonary embolism in the early 1999s; h/o IVC filter in TTE of 12/04/18: LVEF 55-65%, grade 2 diastolic dysfunction of LV, PASP 52 mmHg, no evidence of endocarditis. XIN of 12/05/18: normal LVEF, tiny PFO with tiny L to R shunt, mild MR, no evidence of endocarditis Subcutaneous mass in the right subclavicular region, likely a lipoma per u/s of December 06, 2018 Plan: Evaluation and treatment of anemia is by Dr Avinash Pino ASA because he is on Eliquis Eliquis treatment is because of a reported h/o PAF, but may hold temporarily if active bleeding is being considered. If held, we recommend the investigation and treatment of bleeding source be carried out VELMA so that OAC can be resumed Monitor lab closely Replace electrolytes as indicated EDWIGE MORALES MD FACP FAC CCDS Aug 10, 2021 15:52
[2021-08-10] MEDS: TAMSULOSIN 0.4 MG (FLOMAX) CAP PO SCH (17:46)
[2021-08-10] MEDS: diphenhydrAMINE 25 MG TAB (BENADRYL) PO PRN (20:42)
[2021-08-10] MEDS: MIRTAZAPINE 15 MG (REMERON) TAB PO SCH (20:44)
[2021-08-11 03:04] VITALS: BP 121/60
[2021-08-11] MEDS: VANCOMYCIN 2000 MG/NS 500 ML IVPB IV SCH ×2 (03:04)
[2021-08-11] MEDS: CYANOCOBALAMIN 1,000 MCG (VITAMIN B-12) TABLET PO SCH (06:20)
[2021-08-11] MEDS: BETHANECHOL 25 MG (URECHOLINE) TAB PO SCH ×4 (06:20→20:52)
[2021-08-11] MEDS: SUCRALFATE 1 GM (CARAFATE) TAB PO SCH ×3 (06:20→17:00)
[2021-08-11] MEDS: CEFEPIME 1,000 MG/NS 50 ML IVPB IV SCH ×8 (06:22→23:59)
[2021-08-11] MEDS: inSUlin ASPART (NovoLOG) 1 UNIT/0.01 ML (CHARGE PER UNIT) SC SCH ×7 (06:28→18:29)
[2021-08-11 06:46] LABS: BASOPHILS % (AUTO) 0 % (0-10); EOSINOPHILS % (AUTO) 0 % (0-10)
[2021-08-11 06:47] LABS: HEMATOCRIT 30 % (40-54); LYMPHOCYTES # (AUTO) 0.3 10^3/uL (1.0-4.0); LYMPHOCYTES % (AUTO) 8 % (12-44); MEAN CORPUSCULAR HEMOGLOBIN 31 pg (25-34); MEAN CORPUSCULAR HGB CONC 30 g/dL (32-36); MEAN CORPUSCULAR VOLUME 101 fL (80-99); MEAN PLATELET VOLUME 11.6 fL (9.0-12.2); MONOCYTES # (AUTO) 0.2 10^3/uL (0.0-1.0); MONOCYTES % (AUTO) 6 % (0-12); NEUTROPHILS % (AUTO) 85 % (42-75); PLATELET COUNT 76 10^3/uL (130-400); WHITE BLOOD COUNT 3.5 10^3/uL (4.3-11.0)
[2021-08-11 06:59] LABS: ALBUMIN 3.3 GM/DL (3.2-4.5); POTASSIUM 4.5 MMOL/L (3.6-5.0)
[2021-08-11 07:00] LABS: CALCIUM 8.9 MG/DL (8.5-10.1)
[2021-08-11 07:01] LABS: TOTAL PROTEIN 5.7 GM/DL (6.4-8.2)
[2021-08-11 07:03] LABS: BILIRUBIN,TOTAL 0.7 MG/DL (0.1-1.0)
[2021-08-11 07:05] LABS: CREATININE SERUM 0.82 MG/DL (0.60-1.30)
[2021-08-11] MEDS: RT-ALBUTEROL/IPRATROPIUM 3 ML (DUONEB) VIAL INH SCH ×2 (07:15→22:23)
[2021-08-11] MEDS: RT--FLUTICASONE/SALMETEROL 113-14 (AIRDUO RespiCLICK) IH SCH ×2 (07:16→22:23)
[2021-08-11 08:06] VITALS: BP 135/52
--- NOTE | 2021-08-11 08:28 | Progress Note ---
Subjective Date Seen by a Provider: Aug 11, 2021 Time Seen by a Provider: 11:45 Subjective/Events-last exam Patient doing a lot better Blood sugars are a lot lower will need to adjust insulin No pain is reported Shortness of breath is better Hemoglobin stable Eliquis has been restarted Checked meds labs Voiding well Change steroids from IV to p.o. giving Lasix 1 dose Constipation again so we will do mag citrate and soapsuds enema Review of Systems General: Fatigue, Malaise Pulmonary: Dyspnea Gastrointestinal: Constipation Objective Exam Last Set of Vital Signs Vital Signs Date Time Temp Pulse Resp B/P (MAP) Pulse Ox O2 Delivery O2 Flow Rate FiO2 08/11/21 08:06 36.8 65 18 135/52 (79) 96 Nasal Cannula 4.00 Capillary Refill : I&O Intake and Output 08/11/21 00:00 Intake Total 3260 ml Output Total 275 ml Balance 2985 ml Intake Oral 2590 ml IV Total 670 ml Output Urine Total 275 ml # Voids 9 General: Alert, Oriented X3, Cooperative, No Acute Distress Lungs: Clear to Auscultation, Normal Air Movement Heart: Regular Rate, Normal S1, Normal S2, No Murmurs Psych/Mental Status: Mental Status NL, Mood NL Results Lab Laboratory Tests 08/10/21 10:06: Glucometer 315H 08/10/21 15:11: Glucometer 239H 08/10/21 20:29: Glucometer 210H 08/11/21 06:27: Glucometer 140H 08/11/21 06:30: White Blood Count 3.5L, Red Blood Count 2.95L, Hemoglobin 9.0L, Hematocrit 30L, Mean Corpuscular Volume 101H, Mean Corpuscular Hemoglobin 31, Mean Corpuscular Hemoglobin Concent 30L, Red Cell Distribution Width 20.7H, Platelet Count 76L, Mean Platelet Volume 11.6, Immature Granulocyte % (Auto) 1, Neutrophils (%) (Auto) 85H, Lymphocytes (%) (Auto) 8L, Monocytes (%) (Auto) 6, Eosinophils (%) (Auto) 0, Basophils (%) (Auto) 0, Neutrophils # (Auto) 3.0, Lymphocytes # (Auto) 0.3L, Monocytes # (Auto) 0.2, Eosinophils # (Auto) 0.0, Basophils # (Auto) 0.0, Immature Granulocyte # (Auto) 0.0, Percent Immature Platelet Fraction 6.0, Sodium Level 135, Potassium Level 4.5, Chloride Level 100, Carbon Dioxide Level 27, Anion Gap 8, Blood Urea Nitrogen 23H, Creatinine 0.82, Estimat Glomerular Filtration Rate 92, BUN/Creatinine Ratio 28, Glucose Level 149H, Calcium Level 8.9, Corrected Calcium 9.5, Total Bilirubin 0.7, Aspartate Amino Transf (AST/SGOT) 18, Alanine Aminotransferase (ALT/SGPT) 18, Alkaline Phosphatase 97, Total Protein 5.7L, Albumin 3.3 Microbiology 08/07/21 Blood Culture - Preliminary, Resulted No growth Assessment/Plan Assessment/Plan Assess & Plan/Chief Complaint Assessment: Hospital-acquired pneumonia placed on meropenem and vancomycin Acute on chronic respiratory failure Hypercapnia on ABG from [place] yesterday 7.38/86 Supplemental oxygen at home COPD with exacerbation placed on IV steroids and transition to p.o. JULIAN noncompliant with CPAP BPH Urinary retention requiring Ibarar catheter now dc and voiding well Chronic UTIs Lung cancer status post 1 round of chemotherapy 4 weeks ago Severe anemia requiring 1 unit of blood last week on 07/30/2021 and again today 08/09/2021 Status post severe constipation now resolved but needs to take laxatives but more constipated 08/11/2021 so initiated mag citrate soapsuds enema Cirrhosis has appointment with hepatology Dr. Skaggs at on 08/19/2021 Thrombocytopenia Leukopenia Hypertension Hyperlipidemia Atrial fibrillation diagnosis during previous hospital stay 2 weeks ago transition to Eliquis this hospital stay and DC Lovenox Left lower extremity DVT status post Lovenox treatment now on Eliquis Morbid obesity BMI 41 [place] filter placement 20 years ago Gastrointestinal perforation 20 years ago requiring extensive surgery Insomnia Dry eyes Plan: IV antibiotics Nebulizers Cardiology consult [facility] long-term at discharge to [place] 08/08/21: Much improved status Nebs Steroids PT OT 08/09/2021: Await retirement approval Increase insulin Maintain steroids Maintain nebs Transfuse 08/10/2021: Supportive care Wrap legs with Lucas wraps Wean off steroids 08/11/2021: Wrap legs with Lucas wraps Transitioned Solu-Medrol to prednisone Bowel regimen Clinical Quality Measures Admission Status Admission Dx Assessment: Hospital-acquired pneumonia placed on meropenem and vancomycin Acute on chronic respiratory failure Hypercapnia on ABG from [place] today 7.3 Supplemental oxygen at home COPD JULIAN noncompliant with CPAP BPH Urinary retention requiring Ibarra catheter Chronic UTIs Lung cancer status post 1 round of chemotherapy 4 weeks ago Severe anemia requiring 1 unit of blood last week on 07/30/2021 Status post severe constipation now resolved Cirrhosis has appoint with hematology Dr. Skaggs at on 08/19/2021 Thrombocytopenia Leukopenia Hypertension Hyperlipidemia Atrial fibrillation diagnosis during previous hospital stay 2 weeks ago transition to [facility] this hospital stay and DC Lovenox Left lower extremity DVT status post Lovenox treatment now on Eliquis Morbid obesity BMI 41 [place] filter placement 20 years ago Gastrointestinal perforation 20 years ago requiring extensive surgery Plan: IV antibiotics Nebulizers Cardiology consult [facility] long-term at discharge to [facility] Kenney DO Aug 11, 2021 08:27
[2021-08-11] MEDS: ARTIFICAL TEARS 0.4 ML UNIT DOSE (REFRESH PLUS) OU SCH ×4 (08:34→20:51)
[2021-08-11] MEDS: SERTRALINE 100 MG (ZOLOFT) TAB PO SCH (08:34)
[2021-08-11] MEDS: methylPREDNISolone 125 MG (Solu-MEDROL) VIAL IVP SCH (08:34)
[2021-08-11] MEDS: GABAPENTIN 300 MG (NEURONTIN) CAP PO SCH ×3 (08:34→20:53)
[2021-08-11] MEDS: dilTIAZem120 MG (CARDIZEM CD) CAP PO SCH ×2 (08:35→20:53)
[2021-08-11] MEDS: meTOprolol TARTRATE 50 MG (LOPRESSOR) TAB PO SCH ×2 (08:35→20:52)
[2021-08-11] MEDS: LORATADINE (CLARITIN) 10 MG TAB PO SCH (08:35)
[2021-08-11] MEDS: SENNOSIDES 8.6 MG (SENOKOT) TAB PO SCH ×2 (08:35→20:53)
[2021-08-11] MEDS: APIXABAN 5 MG (ELIQUIS) TABLET PO SCH ×2 (08:35→20:52)
[2021-08-11] MEDS: MELOXICAM 7.5 MG (MOBIC) TABLET PO SCH (08:35)
[2021-08-11] MEDS: FINASTERIDE (PROSCAR) 5 MG TAB PO SCH (08:35)
[2021-08-11] MEDS: PANTOPRAZOLE 40 MG (PROTONIX) TAB PO SCH ×2 (08:35→20:53)
[2021-08-11] MEDS: DOCUSATE SODIUM 100 MG (COLACE) CAP PO SCH ×2 (08:35→20:57)
[2021-08-11 11:56] VITALS: BP 132/60
[2021-08-11] MEDS ORDERED: MAGNESIUM CITRATE 300 ML BTL PO NR (12:15)
[2021-08-11] MEDS ORDERED: FUROSEMIDE 40 MG/4 ML INJ (LASIX) IVP NR (12:45)
[2021-08-11 15:52] VITALS: BP 153/74
--- NOTE | 2021-08-11 15:57 | Progress Note - Cardiology ---
Cardiology SOAP Progress Note Subjective: Episode of dizziness and weakness earlier today. Blood sugar low. Treated with candy. Feels well now Gen weakness and malaise Shortness of breath with activity No cp or palp or syncope No n/v Objective: I&O/Vital Signs 08/11/21 08/11/21 08/11/21 08/11/21 07:00 07:19 08:00 08:06 Temp 36.8 Pulse 60 65 Resp 18 B/P (MAP) 135/52 (79) Pulse Ox 96 96 O2 Delivery Nasal Cannula Nasal Cannula Nasal Cannula O2 Flow Rate 2.00 4.00 4.00 08/11/21 08/11/21 08/11/21 11:56 12:42 15:52 Temp 36.5 36.8 Pulse 57 65 65 Resp 20 19 B/P (MAP) 132/60 (84) 153/74 (100) Pulse Ox 95 95 O2 Delivery Nasal Cannula Nasal Cannula O2 Flow Rate 4.00 4.00 08/11/21 00:00 Intake Total 2960 ml Balance 2960 ml Weight (Pounds): 354 Weight (Ounces): 8.0 Weight (Calculated Kilograms): 160.669323 Constitutional: AAO x 3, well-developed, well-nourished Respiratory: No accessory muscle use, No respiratory distress; chest expansion is symmetric, chest is bilaterally symmetric, other (diminished throughout) Cardiovascular: irregularly irregular; No JVD; S1 and S2 Gastrointestional: distended; No guarding; audible bowel sounds (hyperactive BS) Genital/Rectal: other (urinary catheter in place to DD) Extremities: other (bilat pitting edema) Neurologic/Psychiatric: grossly intact (moves all extremities) Skin: No rash on exposed areas, No ulcerations on exposed areas Results/Procedures: Labs Laboratory Tests 08/10/21 20:29: Glucometer 210H 08/11/21 06:27: Glucometer 140H 08/11/21 06:30: White Blood Count 3.5L, Red Blood Count 2.95L, Hemoglobin 9.0L, Hematocrit 30L, Mean Corpuscular Volume 101H, Mean Corpuscular Hemoglobin 31, Mean Corpuscular Hemoglobin Concent 30L, Red Cell Distribution Width 20.7H, Platelet Count 76L, Mean Platelet Volume 11.6, Immature Granulocyte % (Auto) 1, Neutrophils (%) (Auto) 85H, Lymphocytes (%) (Auto) 8L, Monocytes (%) (Auto) 6, Eosinophils (%) (Auto) 0, Basophils (%) (Auto) 0, Neutrophils # (Auto) 3.0, Lymphocytes # (Auto) 0.3L, Monocytes # (Auto) 0.2, Eosinophils # (Auto) 0.0, Basophils # (Auto) 0.0, Immature Granulocyte # (Auto) 0.0, Percent Immature Platelet Fraction 6.0, Sodium Level 135, Potassium Level 4.5, Chloride Level 100, Carbon Dioxide Level 27, Anion Gap 8, Blood Urea Nitrogen 23H, Creatinine 0.82, Estimat Glomerular Filtration Rate 92, BUN/Creatinine Ratio 28, Glucose Level 149H, Calcium Level 8.9, Corrected Calcium 9.5, Total Bilirubin 0.7, Aspartate Amino Transf (AST/SGOT) 18, Alanine Aminotransferase (ALT/SGPT) 18, Alkaline Phosphatase 97, Total Protein 5.7L, Albumin 3.3 08/11/21 10:22: Glucometer 216H 08/11/21 15:09: Glucometer 56*L Microbiology 08/07/21 Blood Culture - Preliminary, Resulted No growth Laboratory Tests 08/10/21 06:15 08/11/21 06:30 A/P: Assessment: Laboratory Tests 08/10/21 06:15 08/11/21 06:30 Pneumonia - management per medical services Anemia - undetermined etiology - management per Medical services Lung cancer - chemo tx - follows at [facility] Minimal troponin elevation - prob Type 2 DC secondary to hypoxia PAF/flutter, by history - [place] [facility] [place] first dx on 07-21-21. Exhibits NSR with first deg AV block on ECG done on 08/07/21 at this hospital - follows with Dr. Ford of cardiology services at [facility] - OAC with Eliquis - TTE of 12/04/18: LVEF 55-65%, grade 2 diastolic dysfunction of LV, PASP 52 mmHg, no evidence of endocarditis. - XIN of 12/05/18: normal LVEF, tiny PFO with tiny L to R shunt, mild MR, no evidence of endocarditis - Echo of 08/07/21: LVEF 55-60%, grade 2 diastolic dysfunction, enlargement of RV and both atria, aortic valve sclerosis without stenosis H/o COPD JULIAN - non-compliant with tx Hypertension Hyperlipidemia, by history Diabetes mellitus II, followed and managed by primary care physician Obesity, BMI is approx 41 H/o large pulmonary embolism in the early ; h/o IVC filter in Subcutaneous mass in the right subclavicular region, likely a lipoma per u/s of December 06, 2018 Plan: Evaluation and treatment of anemia is by Dr Avinash YOUNG d/nohemy'lino Eliqudeisy treatment is because of a reported h/o PAF, but may hold temporarily if active bleeding is being considered. If held, we recommend the investigation and treatment of bleeding source be carried out VELMA so that OAC can be resumed Monitor lab closely Replace electrolytes as indicated EDWIGE MORALES MD FACP FAC CCDS Aug 11, 2021 15:57
[2021-08-11] MEDS: TAMSULOSIN 0.4 MG (FLOMAX) CAP PO SCH (17:00)
[2021-08-11] MEDS: predniSONE 20 MG TAB PO SCH (17:00)
[2021-08-11 19:44] VITALS: BP 149/65
[2021-08-11] MEDS: diphenhydrAMINE 25 MG TAB (BENADRYL) PO PRN (20:52)
[2021-08-11] MEDS: MIRTAZAPINE 15 MG (REMERON) TAB PO SCH (20:53)
[2021-08-11 23:06] VITALS: BP 150/70
[2021-08-12 03:29] VITALS: BP 105/64
[2021-08-12] MEDS: CEFEPIME 1,000 MG/NS 50 ML IVPB IV SCH ×2 (05:23)
[2021-08-12 05:28] LABS: BASOPHILS % (AUTO) 0 % (0-10); EOSINOPHILS % (AUTO) 0 % (0-10); HEMOGLOBIN 9.7 g/dL (13.3-17.7); WHITE BLOOD COUNT 4.6 10^3/uL (4.3-11.0)
[2021-08-12 05:29] LABS: HEMATOCRIT 33 % (40-54); LYMPHOCYTES # (AUTO) 0.5 10^3/uL (1.0-4.0); LYMPHOCYTES % (AUTO) 10 % (12-44); MEAN CORPUSCULAR HEMOGLOBIN 30 pg (25-34); MEAN CORPUSCULAR HGB CONC 30 g/dL (32-36); MEAN CORPUSCULAR VOLUME 101 fL (80-99); MEAN PLATELET VOLUME 11.1 fL (9.0-12.2); MONOCYTES # (AUTO) 0.4 10^3/uL (0.0-1.0); MONOCYTES % (AUTO) 8 % (0-12); NEUTROPHILS # (AUTO) 3.7 10^3/uL (1.8-7.8); NEUTROPHILS % (AUTO) 80 % (42-75); PLATELET COUNT 68 10^3/uL (130-400)
[2021-08-12] MEDS: SUCRALFATE 1 GM (CARAFATE) TAB PO SCH ×3 (05:32→16:16)
[2021-08-12] MEDS: BETHANECHOL 25 MG (URECHOLINE) TAB PO SCH ×4 (05:32→20:35)
[2021-08-12] MEDS: CYANOCOBALAMIN 1,000 MCG (VITAMIN B-12) TABLET PO SCH (05:32)
[2021-08-12 05:41] LABS: ALBUMIN 3.3 GM/DL (3.2-4.5)
[2021-08-12 05:42] LABS: POTASSIUM 4.3 MMOL/L (3.6-5.0)
[2021-08-12 05:43] LABS: CALCIUM 8.8 MG/DL (8.5-10.1)
[2021-08-12 05:44] LABS: TOTAL PROTEIN 5.6 GM/DL (6.4-8.2)
[2021-08-12 05:46] LABS: BILIRUBIN,TOTAL 0.7 MG/DL (0.1-1.0)
[2021-08-12] MEDS: inSUlin ASPART (NovoLOG) 1 UNIT/0.01 ML (CHARGE PER UNIT) SC SCH ×7 (06:21→20:35)
[2021-08-12 07:22] VITALS: BP 137/70
[2021-08-12 07:26] VITALS: BP 176/76
[2021-08-12] MEDS: RT--FLUTICASONE/SALMETEROL 113-14 (AIRDUO RespiCLICK) IH SCH ×2 (07:40→19:21)
[2021-08-12] MEDS: RT-ALBUTEROL/IPRATROPIUM 3 ML (DUONEB) VIAL INH SCH ×2 (07:40→19:22)
[2021-08-12] MEDS: LORATADINE (CLARITIN) 10 MG TAB PO SCH (07:46)
[2021-08-12] MEDS: GABAPENTIN 300 MG (NEURONTIN) CAP PO SCH ×3 (07:46→20:35)
[2021-08-12] MEDS: predniSONE 20 MG TAB PO SCH ×2 (07:46→16:17)
[2021-08-12] MEDS: MELOXICAM 7.5 MG (MOBIC) TABLET PO SCH (07:47)
[2021-08-12] MEDS: dilTIAZem120 MG (CARDIZEM CD) CAP PO SCH ×2 (07:47→20:35)
[2021-08-12] MEDS: meTOprolol TARTRATE 50 MG (LOPRESSOR) TAB PO SCH ×2 (07:47→20:38)
[2021-08-12] MEDS: FINASTERIDE (PROSCAR) 5 MG TAB PO SCH (07:48)
[2021-08-12] MEDS: PANTOPRAZOLE 40 MG (PROTONIX) TAB PO SCH ×2 (07:48→20:35)
[2021-08-12] MEDS: ARTIFICAL TEARS 0.4 ML UNIT DOSE (REFRESH PLUS) OU SCH ×4 (07:49→20:35)
[2021-08-12] MEDS: APIXABAN 5 MG (ELIQUIS) TABLET PO SCH ×2 (07:54→20:35)
[2021-08-12] MEDS: SERTRALINE 100 MG (ZOLOFT) TAB PO SCH (08:01)
[2021-08-12] MEDS: SENNOSIDES 8.6 MG (SENOKOT) TAB PO SCH ×2 (08:03→19:50)
[2021-08-12] MEDS: DOCUSATE SODIUM 100 MG (COLACE) CAP PO SCH ×2 (08:03→19:50)
--- NOTE | 2021-08-12 08:55 | Progress Note - Cardiology ---
Cardiology SOAP Progress Note Subjective: Sitting up in bed States he feels much better today No c/o CP or palpitations Feels SOB is improving Feels LE swelling is improving Objective: I&O/Vital Signs 08/13/21 08/13/21 08/13/21 08/13/21 00:10 01:00 07:51 08:00 Temp 36.2 36.2 Pulse 63 61 56 65 Resp 18 18 B/P (MAP) 149/64 (92) 150/69 (96) Pulse Ox 94 94 O2 Delivery Nasal Cannula Nasal Cannula O2 Flow Rate 3.00 3.00 08/13/21 08/13/21 08:00 08:13 Pulse Ox 98 O2 Delivery Nasal Cannula Nasal Cannula O2 Flow Rate 3.00 3.00 08/12/21 23:59 Intake Total 1940 ml Balance 1940 ml Weight (Pounds): 354 Weight (Ounces): 8.0 Weight (Calculated Kilograms): 160.067528 Constitutional: AAO x 3, well-developed, well-nourished Respiratory: No accessory muscle use, No respiratory distress; chest expansion is symmetric, chest is bilaterally symmetric, other (diminished bases bilat) Cardiovascular: irregularly irregular; No JVD; S1 and S2 Gastrointestional: distended; No guarding; audible bowel sounds (hyperactive BS) Genital/Rectal: other (urinary catheter in place to DD) Extremities: other (bilat pitting edema) Neurologic/Psychiatric: grossly intact (moves all extremities) Skin: No rash on exposed areas, No ulcerations on exposed areas Results/Procedures: Labs Laboratory Tests 08/12/21 11:46: Glucometer 174H 08/12/21 12:39: Lab Scanned Report Transfusion Reaction Form 08/12/21 15:14: Glucometer 186H 08/12/21 20:18: Glucometer 284H 08/13/21 05:30: Glucometer 173H 08/13/21 05:45: White Blood Count 4.6, Red Blood Count 3.44L, Hemoglobin 10.4L, Hematocrit 35L, Mean Corpuscular Volume 101H, Mean Corpuscular Hemoglobin 30, Mean Corpuscular Hemoglobin Concent 30L, Red Cell Distribution Width 20.3H, Platelet Count 74L, Mean Platelet Volume 11.4, Immature Granulocyte % (Auto) 1, Neutrophils (%) (Auto) 77H, Lymphocytes (%) (Auto) 12, Monocytes (%) (Auto) 9, Eosinophils (%) (Auto) 1, Basophils (%) (Auto) 0, Neutrophils # (Auto) 3.5, Lymphocytes # (Auto) 0.5L, Monocytes # (Auto) 0.4, Eosinophils # (Auto) 0.1, Basophils # (Auto) 0.0, Immature Granulocyte # (Auto) 0.1, Percent Immature Platelet Fraction 5.3, Sodium Level 136, Potassium Level 4.2, Chloride Level 99, Carbon Dioxide Level 28, Anion Gap 9, Blood Urea Nitrogen 22H, Creatinine 0.99, Estimat Glomerular Filtration Rate 79, BUN/Creatinine Ratio 22, Glucose Level 175H, Calcium Level 8.8, Corrected Calcium 9.3, Total Bilirubin 0.7, Aspartate Amino Transf (AST/SGOT) 29, Alanine Aminotransferase (ALT/SGPT) 35, Alkaline Phosphatase 110, Total Protein 5.7L, Albumin 3.4 Microbiology 08/07/21 Blood Culture - Final, Complete No growth A/P: Assessment: Laboratory Tests 08/10/21 06:15 08/11/21 06:30 Pneumonia - management per medical services Anemia - undetermined etiology - management per Medical services Lung cancer - chemo tx - follows at [facility] Minimal troponin elevation - prob Type 2 AL secondary to hypoxia PAF/flutter, by history - per Dr. Da Silva's notes from [facility] [place] 08-04-21 - first dx on 07-21-21. Exhibits NSR with first deg AV block on ECG done on 08/07/21 at this hospital - follows with Dr. Ford of cardiology services at [facility] - OAC with Eliquis - TTE of 12/04/18: LVEF 55-65%, grade 2 diastolic dysfunction of LV, PASP 52 mmHg, no evidence of endocarditis. 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 If held, we recommend the investigation and treatment of bleeding source be carried out VELMA so that OAC can be resumed Monitor lab closely Replace electrolytes as indicated [facility] Aug 12, 2021 08:55
[2021-08-12] MEDS ORDERED: ARTIFICAL TEARS 0.4 ML UNIT DOSE (REFRESH PLUS) ONE (09:40)
[2021-08-12] MEDS ORDERED: CEFD300C3 PO (10:36)
[2021-08-12] MEDS ORDERED: CRAN400T3 PO (10:36)
[2021-08-12] MEDS ORDERED: CYAN200014 PO (10:36)
[2021-08-12] MEDS ORDERED: FINA5TAB6 PO (10:36)
[2021-08-12] MEDS ORDERED: OXC5T PO (10:36)
[2021-08-12] MEDS ORDERED: FLUT1BLS12 IH (10:36)
[2021-08-12] MEDS ORDERED: MIRT-47 PO (10:36)
[2021-08-12] MEDS ORDERED: ASPI-1238 PO (10:36)
[2021-08-12] MEDS ORDERED: SERT-414 PO (10:36)
[2021-08-12] MEDS ORDERED: AMLO-250 PO (10:36)
[2021-08-12] MEDS ORDERED: TRIA1CAP4 PO (10:36)
[2021-08-12] MEDS ORDERED: INSU100V16 SC (10:36)
[2021-08-12] MEDS ORDERED: LOSA100T57 PO (10:36)
[2021-08-12] MEDS ORDERED: C,E,1CAP PO (10:36)
[2021-08-12] MEDS ORDERED: SUCR1TAB PO (10:36)
[2021-08-12] MEDS ORDERED: GABA300C PO (10:36)
[2021-08-12] MEDS ORDERED: IPRA3AMP31 INH (10:36)
[2021-08-12] MEDS ORDERED: METO5TAB2 PO (10:36)
[2021-08-12] MEDS ORDERED: INSU100V5 SQ (10:36)
[2021-08-12] MEDS ORDERED: PANT40TA52 PO (10:36)
[2021-08-12] MEDS ORDERED: CALC200T40 PO (10:36)
[2021-08-12] MEDS ORDERED: CYCL10TA25 PO (10:36)
[2021-08-12] MEDS ORDERED: ACET325T49 PO (10:36)
[2021-08-12] MEDS ORDERED: FURO40TA4 PO (10:36)
[2021-08-12] MEDS ORDERED: POLY17PO54 PO (10:36)
[2021-08-12] MEDS ORDERED: MELO15TA39 PO (10:36)
[2021-08-12] MEDS ORDERED: ATOR40TA PO (10:36)
[2021-08-12] MEDS ORDERED: APIX5TAB PO (10:36)
[2021-08-12] MEDS ORDERED: MELA3TAB39 PO (10:36)
[2021-08-12] MEDS ORDERED: SNN187T PO (10:36)
[2021-08-12] MEDS ORDERED: CETI10TA17 PO (10:36)
[2021-08-12] MEDS ORDERED: ONDA-105 PO (10:36)
[2021-08-12] MEDS ORDERED: DOCU100C37 PO (10:36)
[2021-08-12] MEDS ORDERED: LACT20SO2 PO (10:36)
[2021-08-12] MEDS ORDERED: DILT-27 PO (10:36)
[2021-08-12] MEDS ORDERED: BETH25TA2 PO (10:36)
[2021-08-12] MEDS ORDERED: CARB1DRO OU (10:36)
[2021-08-12] MEDS ORDERED: BISA10SU8 PR (10:36)
[2021-08-12] MEDS ORDERED: PROC5TAB9 PO (10:36)
--- NOTE | 2021-08-12 10:39 | Discharge Inst-Skilled Nursing ---
Discharge Inst-Skilled NF Reconcile Patient Problems Problems Reviewed?: Yes Patient Instructions Patient Problems: Lung cancer Debility COPD PNA Urinary retention Goal: Return home Consult/Follow Up/Orders Skilled NF Admit to: [facility] Certification (SNF) I certify that SNF services are required to be given on an inpatient basis because of the above named patient's need for retirement care on a continuing basis for the conditions(s) for which he/she was receiving inpatient hospital services prior to his/her transfer to the SNF. Alf Facility Order: Nursing Services, Sample Book Maker-Evaluate & Treat, Physical Therapy-Evaluate & Treat Oxygen Delivery Method: Nasal Cannula Discharge Diet: ADA Diet Daily Activity as Tolerated: Yes Resuscitation Status: Full Code New & Resume Previous Orders New Medications: Acetaminophen (Acetaminophen) 325 Mg Tablet 650 MG PO Q4H PRN for TEMPERATURE, #30 TAB Apixaban (Eliquis) 5 Mg Tablet 5 MG PO BID, #60 TAB Atorvastatin Calcium (Lipitor) 40 Mg Tablet 20 MG PO DAILY, #30 TAB Bethanechol Chloride (Bethanechol Chloride) 25 Mg Tablet 25 MG PO ACHS, #120 TAB Bisacodyl (Bisacodyl) 10 Mg Supp.rect 10 MG TN DAILY PRN for CONSTIPATION-2ND LINE, #5 SUPP.RECT Calcium Carbonate (Calcium Antacid) 200 Mg Tab.chew 500 MG PO QID PRN for INDIGESTION, #20 TAB Carboxymethylcellulose Sodium (Refresh Plus) 1 Each Droperette 0 EACH OU QID, #1 EA Cefdinir (Cefdinir) 300 Mg Capsule 300 MG PO BID, #6 CAP Docusate Sodium (Docusate Sodium) 100 Mg Capsule 100 MG PO BID, #60 CAP Insulin Aspart (Novolog) 100 Unit/1 Ml Susp 10 UNIT SC AC, #1 EA Insulin Determir (Levemir) 1,000 Units/10 Ml Soln 20 UNIT SQ BID, #1 EA Ipratropium/Albuterol Sulfate (Iprat-Albut 0.5-3(2.5) mg/3 ml) 3 Ml Ampul.neb 3 ML INH TID, #90 INHALER Lactulose (Lactulose) 20 Gm/30 Ml Solution 20 GM PO BID PRN for CONSTIPATION-4TH LINE, #240 ML Melatonin (Melatonin) 3 Mg Tablet 6 MG PO HS, #30 TAB Mirtazapine (Mirtazapine) 15 Mg Tab.rapdis 15 MG PO HS, #30 TAB Oxycodone Hcl (Oxyir Tablet) 5 Mg Tab 5 MG PO PRN PRN for PAIN-SEE DOSE INSTRUCTIONS, #15 TAB Polyethylene Glycol 3350 (Polyethylene Glycol 3350) 17 Gm Powd.pack 17 GM PO BID PRN for CONSTIPATION-1ST LINE, #1 EACH Sennosides (Senna Lax) 8.6 Mg Tablet 8.6 MG PO BID, #60 TAB Changed Medications: Amlodipine Besylate (Amlodipine Besylate) 5 Mg Tablet 5 MG PO DAILY, #30 TAB (Medication details modified) Hold for SBP<130 Losartan Potassium (Losartan Potassium) 100 Mg Tablet 25 MG PO DAILY, #30 TAB (Changed from: 100 MG) Continued Medications: Aspirin (Aspirin EC) 81 Mg Tablet.dr 81 MG PO DAILY, #30 TAB (This prescription has been renewed) C,E,Zinc,Copper 11/Ygujh5q/Lut (Ocuvite Adult 50 Plus Softgel) 1 Each Capsule 1 CAP PO DAILY, #30 CAP (This prescription has been renewed) Cetirizine HCl (Cetirizine HCl) 10 Mg Tablet 10 MG PO DAILY, #30 TAB (This prescription has been renewed) Cranberry Fruit (Cranberry) 400 Mg Tablet 400 MG PO DAILY, #30 TAB (This prescription has been renewed) Cyanocobalamin (Vitamin B-12) (Vitamin B-12) 2,000 Mcg Tablet 2000 MCG PO DAILY, #30 TAB (This prescription has been renewed) Cyclobenzaprine HCl (Cyclobenzaprine HCl) 10 Mg Tablet 10 MG PO HS PRN for MUSCLE SPASMS, #15 TAB (This prescription has been renewed) Diltiazem HCl (Diltiazem 24Hr ER) 120 Mg Cap.er.24h 120 MG PO BID, #60 CAP (This prescription has been renewed) Finasteride (Finasteride) 5 Mg Tablet 5 MG PO DAILY, #30 TAB (This prescription has been renewed) Fluticasone Propion/Salmeterol (Fluticasone-Salmeterol 250-50) 1 Each Blst.w.dev 1 EACH IH BID, #1 EA (This prescription has been renewed) LAST FILLED 03-11-2021 #1 Furosemide (Furosemide) 40 Mg Tablet 40 MG PO Q72H, #30 TAB (This prescription has been renewed) Gabapentin (Neurontin) 300 Mg Capsule 300 MG PO TID, #90 CAP (This prescription has been renewed) Meloxicam (Meloxicam) 15 Mg Tablet 15 MG PO DAILY, #30 TAB (This prescription has been renewed) Metoclopramide HCl (Metoclopramide HCl) 5 Mg Tablet 5 MG PO ACHS PRN for NAUSEA/VOMITING-3RD LINE, #60 TAB (This prescription has been renewed) Metoprolol Tartrate (Metoprolol Tartrate) 50 Mg Tablet 25 MG PO BID, TAB TAKES OF A 50MG TAB Ondansetron HCl (Ondansetron HCl) 4 Mg Tablet 4 MG PO Q6H PRN for NAUSEA/VOMITING-1ST LINE, #20 TAB (This prescription has been renewed) Pantoprazole Sodium (Pantoprazole Sodium) 40 Mg Tablet.dr 40 MG PO BID, #60 TAB (This prescription has been renewed) Prochlorperazine Maleate (Prochlorperazine Maleate) 5 Mg Tablet 5 MG PO Q6H PRN for NAUSEA/VOMITING-4TH LINE, #15 TAB (This prescription has been renewed) Sertraline HCl (Sertraline HCl) 100 Mg Tablet 100 MG PO DAILY, #30 TAB (This prescription has been renewed) Sucralfate (Sucralfate) 1 Gm Tablet 1 GM PO TIDAC, #120 TAB (This prescription has been renewed) Tamsulosin HCl (Flomax) 0.4 Mg Cap 0.4 MG PO DAILY, CAP Triamterene/Hydrochlorothiazid (Triamterene-Hctz 37.5-25 mg Cp) 1 Each Capsule 1 EA PO DAILY, #30 CAP (This prescription has been renewed) Discontinued Medications: Atorvastatin Calcium (Atorvastatin Calcium) 40 Mg Tablet 20 MG PO DAILY, TAB TAKES OF A 40MG Insulin Glargine,Hum.rec.anlog (Lantus) 100 Unit/1 Ml Vial 60 UNIT SQ BID, VIAL Insulin Lispro (Humalog) 100 Unit/1 Ml Vial 30 UNITS SC TIDAC, EA Pioglitazone HCl (Pioglitazone HCl) 15 Mg Tablet 15 MG PO DAILY, TAB Other Instructions PICC line care: Dressing change and cap change every 7 days and prn Pulse flush each lumen with 20ml of saline every 7 days and prn Raven Da Silva Aug 12, 2021 10:37 RAVEN DA SILVA DO Aug 12, 2021 10:39
--- NOTE | 2021-08-12 10:40 | Discharge Summary ---
Diagnosis/Chief Complaint Date of Admission Aug 07, 2021 at 11:18 Date of Discharge Discharge Date: Aug 12, 2021 Discharge Diagnosis Assessment: Hospital-acquired pneumonia placed on meropenem and vancomycin Acute on chronic respiratory failure Hypercapnia on ABG from [place] today 7.3 / Supplemental oxygen at home COPD JULIAN noncompliant with CPAP BPH Urinary retention requiring Ibarra catheter Chronic UTIs Lung cancer status post 1 round of chemotherapy 4 weeks ago Severe anemia requiring 1 unit of blood last week on 07/30/2021 Status post severe constipation now resolved Cirrhosis has appoint with hematology Dr. Skaggs at on 08/19/2021 Thrombocytopenia Leukopenia Hypertension Hyperlipidemia Atrial fibrillation diagnosis during previous hospital stay 2 weeks ago transition to [facility] this hospital stay and DC Lovenox Left lower extremity DVT status post Lovenox treatment now on [facility] Morbid obesity BMI 41 [place] filter placement 20 years ago Gastrointestinal perforation 20 years ago requiring extensive surgery Plan: IV antibiotics Nebulizers Cardiology consult [facility] at discharge to RAMEZ Kenney DO Reason Hospital Visit CC: SOB HPI: This is a 76-year-old white male clinic pt of mine who presented as a transfer from [facility] after worsening SOB and elevated BNP in need of cardiology higher level of care. He remained on 2-3L of oxygen since last hospitalized the week before, when he was admitted for weakness and UTI. He returned this time for severe constipation and generalized weakness. He had received a unit of blood the week before. Chemotherapy had just been started for lung cancer. Patient was transition from [facility] for left lower extremity DVT to [facility] during the [place] hospital stay due to recent new onset A. fib episode the week before during his hospital stay. He is at this current time assessed and found to have findings consistent with pneumonia facility acquired. Antibiotic regimen initiated. Septic workup completed. Echocardiogram ordered and Dr. Curiel consulted. Discharge Summary Discharge Physical Examination Allergies: Coded Allergies: No Known Drug Allergies (Unverified , 11/26/18) Vitals & I&Os Vital Signs Date Time Temp Pulse Resp B/P (MAP) Pulse Ox O2 Delivery O2 Flow Rate FiO2 08/13/21 01:00 61 08/13/21 00:10 36.2 18 149/64 (92) 94 Nasal Cannula 3.00 General Appearance: Alert, Oriented X3, Cooperative Respiratory: Clear to Auscultation Cardiovascular: Regular Rate Neuro: Normal Gait, Normal Speech, Strength at 5/5 X4 Ext Psych/Mental Status: Mental Status NL Hospital Course Was the Problem List Reviewed?: Yes Pt is doing a lot better today Changed down to oral Prednisone He will be finished with steroids if he does discharge to residential today No pain is reported Updated daughter regarding the plan today in depth Checked meds and labs Hemoglobin is good at 9.6 Discharge was delayed Labs (last 24 hrs) Laboratory Tests 08/07/21 12:49: Glucometer 238H 08/07/21 13:00: White Blood Count 3.7L, Red Blood Count 2.79L, Hemoglobin 8.4L, Hematocrit 28L, Mean Corpuscular Volume 100H, Mean Corpuscular Hemoglobin 30, Mean Corpuscular Hemoglobin Concent 30L, Red Cell Distribution Width 20.7H, Platelet Count 89L, Mean Platelet Volume 11.1, Immature Granulocyte % (Auto) 1, Neutrophils (%) (Auto) 71, Lymphocytes (%) (Auto) 14, Monocytes (%) (Auto) 13H, Eosinophils (%) (Auto) 1, Basophils (%) (Auto) 1, Neutrophils # (Auto) 2.6, Lymphocytes # (Auto) 0.5L, Monocytes # (Auto) 0.5, Eosinophils # (Auto) 0.1, Basophils # (Auto) 0.0, Immature Granulocyte # (Auto) 0.0, Percent Immature Platelet Fraction 5.5, Sodium Level 137, Potassium Level 4.3, Chloride Level 97L, Carbon Dioxide Level 33H, Anion Gap 7, Blood Urea Nitrogen 14, Creatinine 0.88, Estimat Glomerular Filtration Rate 90, BUN/Creatinine Ratio 16, Glucose Level 258H, Lactic Acid Level 0.72, Calcium Level 8.6, Corrected Calcium 9.1, Total Bilirubin 2.0H, Aspartate Amino Transf (AST/SGOT) 16, Alanine Aminotransferase (ALT/SGPT) 8, Alkaline Phosphatase 115, Troponin I 0.032H, B-Type Natriuretic Peptide 342.7H, Total Protein 6.1L, Albumin 3.4 08/07/21 14:30: Urine Color YELLOW, Urine Clarity CLEAR, Urine pH 6.0, Urine Specific [place] 1.020, Urine Protein NEGATIVE, Urine Glucose (UA) NEGATIVE, Urine Ketones NEGATIVE, Urine Nitrite NEGATIVE, Urine Bilirubin NEGATIVE, Urine Urobilinogen 0.2, Urine Leukocyte Esterase 1+H, Urine RBC (Auto) 3+H, Urine RBC 10-25H, Urine WBC 10-25H, Urine Squamous Epithelial Cells NONE, Urine Renal Epithelial Cells NONE, Urine Crystals NONE, Urine Bacteria NEGATIVE, Urine Casts NONE, Urine Mucus NEGATIVE, Urine Culture Indicated NO 08/07/21 15:55: Glucometer 329H 08/07/21 20:07: Glucometer 378H 08/07/21 22:11: Glucometer 374H 08/08/21 02:04: Glucometer 317H 08/08/21 05:21: Glucometer 347H 08/08/21 05:42: White Blood Count 2.7L, Red Blood Count 2.60L, Hemoglobin 8.0L, Hematocrit 26L, Mean Corpuscular Volume 101H, Mean Corpuscular Hemoglobin 31, Mean Corpuscular Hemoglobin Concent 31L, Red Cell Distribution Width 20.4H, Platelet Count 88L, Mean Platelet Volume 11.8, Immature Granulocyte % (Auto) 1, Neutrophils (%) (Auto) 91H, Lymphocytes (%) (Auto) 5L, Monocytes (%) (Auto) 4, Eosinophils (%) (Auto) 0, Basophils (%) (Auto) 0, Neutrophils # (Auto) 2.5, Lymphocytes # (Auto) 0.1L, Monocytes # (Auto) 0.1, Eosinophils # (Auto) 0.0, Basophils # (Auto) 0.0, Immature Granulocyte # (Auto) 0.0, Neutrophils % (Manual) 90, Lymphocytes % ( Manual) 5, Monocytes % (Manual) 3, Eosinophils % (Manual) 0, Basophils % (Manual) 0, Band Neutrophils 2, Polychromasia SLIGHT, Anisocytosis MODERATE, Macrocytosis SLIGHT, Elliptocytes SLIGHT, Sodium Level 135, Potassium Level 4.1, Chloride Level 97L, Carbon Dioxide Level 27, Anion Gap 11, Blood Urea Nitrogen 17, Creatinine 0.94, Estimat Glomerular Filtration Rate 85, BUN/Creatinine Ratio 18, Glucose Level 385H, Calcium Level 8.6, Corrected Calcium 9.2, Total Bilirubin 1.3H, Aspartate Amino Transf (AST/SGOT) 14, Alanine Aminotransferase (ALT/SGPT) 10, Alkaline Phosphatase 104, Total Protein 6.0L, Albumin 3.2 08/08/21 11:33: Glucometer 396H 08/08/21 14:00: Vancomycin Level Trough 14.7 08/08/21 15:55: Glucometer 206H 08/08/21 20:08: Glucometer 148H 08/09/21 03:42: White Blood Count 3.2L, Red Blood Count 2.13L, Hemoglobin 6.3#*L, Hematocrit 22L , Mean Corpuscular Volume 104H, Mean Corpuscular Hemoglobin 30, Mean Corpuscular Hemoglobin Concent 29L, Red Cell Distribution Width 20.5H, Platelet Count 79L, Mean Platelet Volume 10.7, Immature Granulocyte % (Auto) 1, Neutrophils (%) (Auto) 90H, Lymphocytes (%) (Auto) 7L, Monocytes (%) (Auto) 3, Eosinophils (%) (Auto) 0, Basophils (%) (Auto) 0, Neutrophils # (Auto) 2.8, Lymphocytes # (Auto) 0.2L, Monocytes # (Auto) 0.1, Eosinophils # (Auto) 0.0, Basophils # (Auto) 0.0, Immature Granulocyte # (Auto) 0.0, Percent Immature Platelet Fraction 4.8, Sodium Level 137, Potassium Level 3.5L, Chloride Level 107, Carbon Dioxide Level 24, Anion Gap 6, Blood Urea Nitrogen 16, Creatinine 0.69, Estimat Glomerular Filtration Rate 97, BUN/Creatinine Ratio 23, Glucose Level 151H, Calcium Level 7.1L, Corrected Calcium 8.2L, Total Bilirubin 0.6, Aspartate Amino Transf (AST/SGOT) 15, Alanine Aminotransferase (ALT/SGPT) 10, Alkaline Phosphatase 73, Total Protein 4.5L, Albumin 2.6L 08/09/21 06:06: Glucometer 176H 08/09/21 11:14: Glucometer 348H 08/09/21 11:17: Glucometer 354H 08/09/21 14:15: Hemoglobin 9.3#L, Hematocrit 32L 08/09/21 15:21: Glucometer 292H 08/09/21 20:49: Glucometer 297H 08/10/21 06:13: Glucometer 228H 08/10/21 06:15: White Blood Count 4.2L, Red Blood Count 2.89L, Hemoglobin 9.0L, Hematocrit 30L, Mean Corpuscular Volume 103H, Mean Corpuscular Hemoglobin 31, Mean Corpuscular Hemoglobin Concent 30L, Red Cell Distribution Width 21.5H, Platelet Count 89L, Mean Platelet Volume 10.9, Immature Granulocyte % (Auto) 1, Neutrophils (%) (Auto) 89H, Lymphocytes (%) (Auto) 7L, Monocytes (%) (Auto) 4, Eosinophils (%) (Auto) 0, Basophils (%) (Auto) 0, Neutrophils # (Auto) 3.7, Lymphocytes # (Auto) 0.3L, Monocytes # (Auto) 0.2, Eosinophils # (Auto) 0.0, Basophils # (Auto) 0.0, Immature Granulocyte # (Auto) 0.0, Sodium Level 134L, Potassium Level 4.7, Chloride Level 98, Carbon Dioxide Level 27, Anion Gap 9, Blood Urea Nitrogen 25H , Creatinine 0.90, Estimat Glomerular Filtration Rate 89, BUN/Creatinine Ratio 28, Glucose Level 238H, Calcium Level 9.0, Corrected Calcium 9.5, Total Bilirubin 0.8, Aspartate Amino Transf (AST/SGOT) 16, Alanine Aminotransferase (ALT/SGPT) 15, Alkaline Phosphatase 93, Total Protein 5.8L, Albumin 3.4 08/10/21 10:06: Glucometer 315H 08/10/21 15:11: Glucometer 239H 08/10/21 20:29: Glucometer 210H 08/11/21 06:27: Glucometer 140H 08/11/21 06:30: White Blood Count 3.5L, Red Blood Count 2.95L, Hemoglobin 9.0L, Hematocrit 30L, Mean Corpuscular Volume 101H, Mean Corpuscular Hemoglobin 31, Mean Corpuscular Hemoglobin Concent 30L, Red Cell Distribution Width 20.7H, Platelet Count 76L, Mean Platelet Volume 11.6, Immature Granulocyte % (Auto) 1, Neutrophils (%) (Auto) 85H, Lymphocytes (%) (Auto) 8L, Monocytes (%) (Auto) 6, Eosinophils (%) (Auto) 0, Basophils (%) (Auto) 0, Neutrophils # (Auto) 3.0, Lymphocytes # (Auto) 0.3L, Monocytes # (Auto) 0.2, Eosinophils # (Auto) 0.0, Basophils # (Auto) 0.0, Immature Granulocyte # (Auto) 0.0, Percent Immature Platelet Fraction 6.0, Sod ium Level 135, Potassium Level 4.5, Chloride Level 100, Carbon Dioxide Level 27, Anion Gap 8, Blood Urea Nitrogen 23H, Creatinine 0.82, Estimat Glomerular Filtration Rate 92, BUN/Creatinine Ratio 28, Glucose Level 149H, Calcium Level 8.9, Corrected Calcium 9.5, Total Bilirubin 0.7, Aspartate Amino Transf (AST/SGOT) 18, Alanine Aminotransferase (ALT/SGPT) 18, Alkaline Phosphatase 97, Total Protein 5.7L, Albumin 3.3 08/11/21 10:22: Glucometer 216H 08/11/21 15:09: Glucometer 56*L 08/11/21 15:59: Glucometer 83 08/11/21 20:15: Glucometer 129H 08/12/21 05:20: White Blood Count 4.6, Red Blood Count 3.22L, Hemoglobin 9.7L, Hematocrit 33L, Mean Corpuscular Volume 101H, Mean Corpuscular Hemoglobin 30, Mean Corpuscular Hemoglobin Concent 30L, Red Cell Distribution Width 20.2H, Platelet Count 68L, Mean Platelet Volume 11.1, Immature Granulocyte % (Auto) 1, Neutrophils (%) (Auto) 80H, Lymphocytes (%) (Auto) 10L, Monocytes (%) (Auto) 8, Eosinophils (%) (Auto) 0, Basophils (%) (Auto) 0, Neutrophils # (Auto) 3.7, Lymphocytes # (Auto) 0.5L, Monocytes # (Auto) 0.4, Eosinophils # (Auto) 0.0, Basophils # (Auto) 0.0, Immature Granulocyte # (Auto) 0.1, Percent Immature Platelet Fraction 5.6, Sodium Level 136, Potassium Level 4.3, Chloride Level 100, Carbon Dioxide Level 26, Anion Gap 10, Blood Urea Nitrogen 25H, Creatinine 1.00, Estimat Glomerular Filtration Rate 78, BUN/Creatinine Ratio 25, Glucose Level 104, Calcium Level 8.8, Corrected Calcium 9.4, Total Bilirubin 0.7, Aspartate Amino Transf (AST/SGOT) 26, Alanine Aminotransferase (ALT/SGPT) 27, Alkaline Phosphatase 103, Total Protein 5.6L, Albumin 3.3 08/12/21 11:46: Glucometer 174H 08/12/21 12:39: Lab Scanned Report Transfusion Reaction Form 08/12/21 15:14: Glucometer 186H 08/12/21 20:18: Glucometer 284H Microbiology 08/07/21 Blood Culture - Final, Complete No growth Pending Labs Microbiology Date/Time Source Procedure Growth Status 08/07/21 13:05 Peripheral Rt Hand Blood Culture - Final No growth Complete 08/07/21 13:00 Peripheral Rt Ac Blood Culture - Final No growth Complete Laboratory Tests 08/07/21 12:49: Glucometer 238 08/07/21 13:00: White Blood Count 3.7, Red Blood Count 2.79, Hemoglobin 8.4, Hematocrit 28, Mean Corpuscular Volume 100, Mean Corpuscular Hemoglobin 30, Mean Corpuscular Hemoglobin Concent 30, Red Cell Distribution Width 20.7, Platelet Count 89, Mean Platelet Volume 11.1, Immature Granulocyte % (Auto) 1, Neutrophils (%) (Auto) 71, Lymphocytes (%) (Auto) 14, Monocytes (%) (Auto) 13, Eosinophils (%) (Auto) 1, Basophils (%) (Auto) 1, Neutrophils # (Auto) 2.6, Lymphocytes # (Auto) 0.5, Monocytes # (Auto) 0.5, Eosinophils # (Auto) 0.1, Basophils # (Auto) 0.0, Immature Granulocyte # (Auto) 0.0, Percent Immature Platelet Fraction 5.5, Sodium Level 137, Potassium Level 4.3, Chloride Level 97, Carbon Dioxide Level 33, Anion Gap 7, Blood Urea Nitrogen 14, Creatinine 0.88, Estimat Glomerular Filtration Rate 90, BUN/Creatinine Ratio 16, Glucose Level 258, Lactic Acid Level 0.72, Calcium Level 8.6, Corrected Calcium 9.1, Total Bilirubin 2.0, Aspartate Amino Transf (AST/SGOT) 16, Alanine Aminotransferase (ALT/SGPT) 8, Alkaline Phosphatase 115, Troponin I 0.032, B-Type Natriuretic Peptide 342.7, Total Protein 6.1, Albumin 3.4 08/07/21 14:30: Urine Color YELLOW, Urine Clarity CLEAR, Urine pH 6.0, Urine Specific [place] 1.020, Urine Protein NEGATIVE, Urine Glucose (UA) NEGATIVE, Urine Ketones NEGATIVE, Urine Nitrite NEGATIVE, Urine Bilirubin NEGATIVE, Urine Urobilinogen 0.2, Urine Leukocyte Esterase 1+, Urine RBC (Auto) 3+, Urine RBC 10-25, Urine WBC 10-25, Urine Squamous Epithelial Cells NONE, Urine Renal Epithelial Cells NONE, Urine Crystals NONE, Urine Bacteria NEGATIVE, Urine Casts NONE, Urine Mucus NEGATIVE, Urine Culture Indicated NO 08/07/21 15:55: Glucometer 329 08/07/21 20:07: Glucometer 378 08/07/21 22:11: Glucometer 374 08/08/21 02:04: Glucometer 317 08/08/21 05:21: Glucometer 347 08/08/21 05:42: White Blood Count 2.7, Red Blood Count 2.60, Hemoglobin 8.0, Hematocrit 26, Mean Corpuscular Volume 101, Mean Corpuscular Hemoglobin 31, Mean Corpuscular Hemoglo bin Concent 31, Red Cell Distribution Width 20.4, Platelet Count 88, Mean Platelet Volume 11.8, Immature Granulocyte % (Auto) 1, Neutrophils (%) (Auto) 91, Lymphocytes (%) (Auto) 5, Monocytes (%) (Auto) 4, Eosinophils (%) (Auto) 0, Basophils (%) (Auto) 0, Neutrophils # (Auto) 2.5, Lymphocytes # (Auto) 0.1, Monocytes # (Auto) 0.1, Eosinophils # (Auto) 0.0, Basophils # (Auto) 0.0, Im mature Granulocyte # (Auto) 0.0, Neutrophils % (Manual) 90, Lymphocytes % (Manual) 5, Monocytes % (Manual) 3, Eosinophils % (Manual) 0, Basophils % (Manual) 0, Band Neutrophils 2, Polychromasia SLIGHT, Anisocytosis MODERATE, Macrocytosis SLIGHT, Elliptocytes SLIGHT, Sodium Level 135, Potassium Level 4.1, Chloride Level 97, Carbon Dioxide Level 27, Anion Gap 11, Blood Urea Nitrogen 17, Creatinine 0.94, Estimat Glomerular Filtration Rate 85, BUN/Creatinine Ratio 18, Glucose Level 385, Calcium Level 8.6, Corrected Calcium 9.2, Total Bilirubin 1.3, Aspartate Amino Transf (AST/SGOT) 14, Alanine Aminotransferase (ALT/SGPT) 10, Alkaline Phosphatase 104, Total Protein 6.0, Albumin 3.2 08/08/21 11:33: Glucometer 396 08/08/21 14:00: Vancomycin Level Trough 14.7 08/08/21 15:55: Glucometer 206 08/08/21 20:08: Glucometer 148 08/09/21 03:42: White Blood Count 3.2, Red Blood Count 2.13, Hemoglobin 6.3, Hematocrit 22, Mean Corpuscular Volume 104, Mean Corpuscular Hemoglobin 30, Mean Corpuscular Hemoglobin Concent 29, Red Cell Distribution Width 20.5, Platelet Count 79, Mean Platelet Volume 10.7, Immature Granulocyte % (Auto) 1, Neutrophils (%) (Auto) 90, Lymphocytes (%) (Auto) 7, Monocytes (%) (Auto) 3, Eosinophils (%) (Auto) 0, Basophils (%) (Auto) 0, Neutrophils # (Auto) 2.8, Lymphocytes # (Auto) 0.2, Monocytes # (Auto) 0.1, Eosinophils # (Auto) 0.0, Basophils # (Auto) 0.0, Immature Granulocyte # (Auto) 0.0, Percent Immature Platelet Fraction 4.8, Sodium Level 137, Potassium Level 3.5, Chloride Level 107, Carbon Dioxide Level 24, Anion Gap 6, Blood Urea Nitrogen 16, Creatinine 0.69, Estimat Glomerular Filtration Rate 97, BUN/Creatinine Ratio 23, Glucose Level 151, Calcium Level 7.1, Corrected Calcium 8.2, Total Bilirubin 0.6, Aspartate Amino Transf (AST/SGOT) 15, Alanine Aminotransferase (ALT/SGPT) 10, Alkaline Phosphatase 73, Total Protein 4.5, Albumin 2.6 08/09/21 06:06: Glucometer 176 08/09/21 11:14: Glucometer 348 08/09/21 11:17: Glucometer 354 08/09/21 14:15: Hemoglobin 9.3, Hematocrit 32 08/09/21 15:21: Glucometer 292 08/09/21 20:49: Glucometer 297 08/10/21 06:13: Glucometer 228 08/10/21 06:15: White Blood Count 4.2, Red Blood Count 2.89, Hemoglobin 9.0, Hematocrit 30, Mean Corpuscular Volume 103, Mean Corpuscular Hemoglobin 31, Mean Corpuscular Hemoglobin Concent 30, Red Cell Distribution Width 21.5, Platelet Count 89, Mean Platelet Volume 10.9, Immature Granulocyte % (Auto) 1, Neutrophils (%) (Auto) 89, Lymphocytes (%) (Auto) 7, Monocytes (%) (Auto) 4, Eosinophils (%) (Auto) 0, Basophils (%) (Auto) 0, Neutrophils # (Auto) 3.7, Lymphocytes # (Auto) 0.3, Monocytes # (Auto) 0.2, Eosinophils # (Auto) 0.0, Basophils # (Auto) 0.0, Immature Granulocyte # (Auto) 0.0, Sodium Level 134, Potassium Level 4.7, Chloride Level 98, Carbon Dioxide Level 27, Anion Gap 9, Blood Urea Nitrogen 25, Creatinine 0.90, Estimat Glomerular Filtration Rate 89, BUN/Creatinine Ratio 28, Glucose Level 238, Calcium Level 9.0, Corrected Calcium 9.5, Total Bilirubin 0.8, Aspartate Amino Transf (AST/SGOT) 16, Alanine Aminotransferase (ALT/SGPT) 15, Alkaline Phosphatase 93, Total Protein 5.8, Albumin 3.4 08/10/21 10:06: Glucometer 315 08/10/21 15:11: Glucometer 239 08/10/21 20:29: Glucometer 210 08/11/21 06:27: Glucometer 140 08/11/21 06:30: White Blood Count 3.5, Red Blood Count 2.95, Hemoglobin 9.0, Hematocrit 30, Mean Corpuscular Volume 101, Mean Corpuscular Hemoglobin 31, Mean Corpuscular Hemoglobin Concent 30, Red Cell Distribution Width 20.7, Platelet Count 76, Mean Platelet Volume 11.6, Immature Granulocyte % (Auto) 1, Neutrophils (%) (Auto) 85, Lymphocytes (%) (Auto) 8, Monocytes (%) (Auto) 6, Eosinophils (%) (Auto) 0, Basophils (%) (Auto) 0, Neutrophils # (Auto) 3.0, Lymphocytes # (Auto) 0.3, [place] cytes # (Auto) 0.2, Eosinophils # (Auto) 0.0, Basophils # (Auto) 0.0, Immature Granulocyte # (Auto) 0.0, Percent Immature Platelet Fraction 6.0, Sodium Level 135, Potassium Level 4.5, Chloride Level 100, Carbon Dioxide Level 27, Anion Gap 8, Blood Urea Nitrogen 23, Creatinine 0.82, Estimat Glomerular Filtration Rate 92, BUN/Creatinine Ratio 28, Glucose Level 149, Calcium Level 8.9, Corrected Calcium 9.5, Total Bilirubin 0.7, Aspartate Amino Transf (AST/SGOT) 18, Alanine Aminotransferase (ALT/SGPT) 18, Alkaline Phosphatase 97, Total Protein 5.7, Albumin 3.3 08/11/21 10:22: Glucometer 216 08/11/21 15:09: Glucometer 56 08/11/21 15:59: Glucometer 83 08/11/21 20:15: Glucometer 129 08/12/21 05:20: White Blood Count 4.6, Red Blood Count 3.22, Hemoglobin 9.7, Hematocrit 33, Mean Corpuscular Volume 101, Mean Corpuscular Hemoglobin 30, Mean Corpuscular Hemoglobin Concent 30, Red Cell Distribution Width 20.2, Platelet Count 68, Mean Platelet Volume 11.1, Immature Granulocyte % (Auto) 1, Neutrophils (%) (Auto) 80, Lymphocytes (%) (Auto) 10, Monocytes (%) (Auto) 8, Eosinophils (%) (Auto) 0, Basophils (%) (Auto) 0, Neutrophils # (Auto) 3.7, Lymphocytes # (Auto) 0.5, Monocytes # (Auto) 0.4, Eosinophils # (Auto) 0.0, Basophils # (Auto) 0.0, Immature Granulocyte # (Auto) 0.1, Percent Immature Platelet Fraction 5.6, Sodium Level 136, Potassium Level 4.3, Chloride Level 100, Carbon Dioxide Level 26, Anion Gap 10, Blood Urea Nitrogen 25, Creatinine 1.00, Estimat Glomerular Filtration Rate 78, BUN/Creatinine Ratio 25, Glucose Level 104, Calcium Level 8.8, Corrected Calcium 9.4, Total Bilirubin 0.7, Aspartate Amino Transf (AST/SGOT) 26, Alanine Aminotransferase (ALT/SGPT) 27, Alkaline Phosphatase 103, Total Protein 5.6, Albumin 3.3 08/12/21 11:46: Glucometer 174 08/12/21 12:39: Lab Scanned Report Transfusion Reaction Form 08/12/21 15:14: Glucometer 186 08/12/21 20:18: Glucometer 284 Discharge Home Medications: Active Scripts Active Melatonin 3 Mg Tablet 6 Mg PO HS Novolog (Insulin Aspart) 100 Unit/1 Ml Susp 10 Unit SC AC Levemir (Insulin Determir) 1,000 Units/10 Ml Soln 20 Unit SQ BID Senna Lax (Sennosides) 8.6 Mg Tablet 8.6 Mg PO BID Polyethylene Glycol 3350 17 Gm Powd.pack 17 Gm PO BID PRN Docusate Sodium 100 Mg Capsule 100 Mg PO BID Bisacodyl 10 Mg Supp.rect 10 Mg TX DAILY PRN Calcium Antacid (Calcium Carbonate) 200 Mg Tab.chew 500 Mg PO QID PRN Refresh Plus (Carboxymethylcellulose Sodium) 1 Each [place] 0 Each OU QID Lactulose 20 Gm/30 Ml Solution 20 Gm PO BID PRN Mirtazapine 15 Mg Tab.rapdis 15 Mg PO HS Acetaminophen 325 Mg Tablet 650 Mg PO Q4H PRN Oxyir Tablet (Oxycodone HCl) 5 Mg Tab 5 Mg PO PRN PRN Lipitor (Atorvastatin Calcium) 40 Mg Tablet 20 Mg PO DAILY Eliquis (Apixaban) 5 Mg Tablet 5 Mg PO BID Iprat-Albut 0.5-3(2.5) mg/3 ml (Ipratropium/Albuterol Sulfate) 3 Ml Ampul.neb 3 Ml INH TID Bethanechol Chloride 25 Mg Tablet 25 Mg PO ACHS Cefdinir 300 Mg Capsule 300 Mg PO BID Amlodipine Besylate 5 Mg Tablet 5 Mg PO DAILY Hold for SBP<130 Fluticasone-Salmeterol 250-50 (Fluticasone Propion/Salmeterol) 1 Each Blst.w.dev 1 Each IH BID LAST FILLED 03-11-2021 #1 Triamterene-Hctz 37.5-25 mg Cp (Triamterene/Hydrochlorothiazid) 1 Each Capsule 1 Ea PO DAILY Furosemide 40 Mg Tablet 40 Mg PO Q72H Cranberry (Cranberry Fruit) 400 Mg Tablet 400 Mg PO DAILY Losartan Potassium 100 Mg Tablet 25 Mg PO DAILY Cyclobenzaprine HCl 10 Mg Tablet 10 Mg PO HS PRN Ondansetron HCl 4 Mg Tablet 4 Mg PO Q6H PRN Neurontin (Gabapentin) 300 Mg Capsule 300 Mg PO TID Prochlorperazine Maleate 5 Mg Tablet 5 Mg PO Q6H PRN Pantoprazole Sodium 40 Mg Tablet.dr 40 Mg PO BID Diltiazem 24Hr ER (Diltiazem HCl) 120 Mg Cap.er.24h 120 Mg PO BID Metoclopramide HCl 5 Mg Tablet 5 Mg PO ACHS PRN Sucralfate 1 Gm Tablet 1 Gm PO TIDAC Meloxicam 15 Mg Tablet 15 Mg PO DAILY Aspirin EC (Aspirin) 81 Mg Tablet.dr 81 Mg PO DAILY Sertraline HCl 100 Mg Tablet 100 Mg PO DAILY Cetirizine HCl 10 Mg Tablet 10 Mg PO DAILY Vitamin B-12 (Cyanocobalamin (Vitamin B-12)) 2,000 Mcg Tablet 2,000 Mcg PO DAILY Ocuvite Adult 50 Plus Softgel (C,E,Zinc,Copper 11/Qnssb2p/Lut) 1 Each Capsule 1 Cap PO DAILY Finasteride 5 Mg Tablet 5 Mg PO DAILY Reported Metoprolol Tartrate 50 Mg Tablet 25 Mg PO BID TAKES OF A 50MG TAB Flomax (Tamsulosin HCl) 0.4 Mg Cap 0.4 Mg PO DAILY Instructions to patient/family Please see electronic discharge instructions given to patient. RAMEZ NGO DO Aug 12, 2021 10:40
--- NOTE | 2021-08-12 10:43 | Physical Therapy Daily Note ---
PT Daily Note-Current Subjective Patient presented laying in bed and agreed to participate in therapy. Mental Status Patient Orientation: Person, Place, Time, Situation Attachments: Oxygen (3L NC) Transfers SCALE: Activities may be completed with or without assistive devices. 8-Xoaicrqgif-kjxgqef completes the activity by him/herself with no assistance from a helper. 5-Set-up or Clean-up Assistance-helper sets up or cleans up; patient completes activity. Austin assists only prior to or following the activity. 4-Supervision or Touching Assistance-helper provides verbal cues and/or touching/steadying and/or contact guard assistance as patient completes activity. Assistance may be provided throughout the activity or intermittently. 3-Partial/Moderate Assistance-helper does LESS THAN HALF the effort. Austin lifts, holds or supports trunk or limbs, but provides less than half the effort. 2-Substantial/Maximal Assistance-helper does MORE THAN HALF the effort. Austin lifts or holds trunk or limbs and provides more than half the effort. 7-Hsgtylkwf-afoihl does ALL the effort. Patient does none of the effort to complete the activity. Or, the assistance of 2 or more helpers is required for the patient to complete the activity. If activity was not attempted, code reason: 7-Patient Refused. 9-Not Applicable-not attempted and the patient did not perform the activity before the current illness, exacerbation or injury. 10-Not Attempted due to Environmental Limitations-(lack of equipment, weather restraints, etc.). 88-Not Attempted due to Medical Conditions or Safety Concerns. Lying to Sitting/Side of Bed(Q: 6 Sit to Stand (QC): 4 Toilet Transfer (QC): 4 Patient is independent for bed mobility and requires SBA for sit to stand and toilet transfer. Gait Training Does the Patient Walk?: Yes Distance: 200' Walk 10 feet (QC): 4 Walk 50 ft with 2 Turns(QC): 4 Walk 150 ft (QC): 4 Gait Assistive Device: FWW Patient ambulated for 200' with FWW and SBA. Patient reported SOA after ambulation and requested to sit back in bed. Assessment Patient ambulated to the toilet and outside the room during therapy. Patient reported SOA after ambulation and requested to sit back down. Patient left post tx sitting EOB with nurse call and all needs met. PT Chcf Goals Machinist First Class Goals PT Machinist First Class Goals Time Frame: Aug 17, 2021 Roll Left & Right (QC): 6 Sit to Lying (QC): 6 Lying-Sitting on Side/Bed(QC): 6 Sit to Stand (QC): 6 Chair/Etp-xu-Clirs Xfer(QC): 6 Toilet Transfer (QC): 6 Does the Patient Walk: Yes Walk 10 feet (QC): 6 Walk 50ft with 2 Turns (QC): 6 Walk 150 ft (QC): 4 PT Plan Problem List Problem List: Activity Tolerance, Functional Strength, Safety, Balance, Gait, Transfer, ROM Treatment/Plan Treatment Plan: Continue Plan of Care Treatment Plan: Bed Mobility, Education, Functional Activity Leela, Functional Strength, Gait, Safety, Therapeutic Exercise, Transfers Treatment Duration: Aug 17, 2021 Frequency: 6 times per week Estimated Hrs Per Day: .25 hour per day Patient and/or Family Agrees t: Yes Time/GCodes Time In: 1005 Time Out: 1018 Total Billed Treatment Time: 13 Total Billed Treatment 1 Visit FA 13 min NANY LOCK PT Aug 12, 2021 10:43
[2021-08-12] MEDS ORDERED: CEFDINIR 300 MG (OMNICEF) CAP PO NR (11:00)
--- NOTE | 2021-08-12 11:07 | Progress Note ---
ALEXA SETHI 08/12/21 1107: Subjective Date Seen by a Provider: Aug 12, 2021 Time Seen by a Provider: 08:07 Subjective/Events-last exam Patient states he is doing a lot better overall and especially after having 10 bowel movements yesterday. Blood sugars improved, 104 last checked on 08/12 @ 0520 No pain reported Shortness of breath is better, still using IS Hemoglobin stable at 9.7 Continuing to give Eloquis Checked meds labs Had 10 bowel movements yesterday, voiding well Currtenly on PO steroids Last Lasix dose given on 08/11 Discharge Summary Elian Gaffney is a 76-year-old male admitted to [facility] via [facility] in [place] due to pneumonia. Transferred from [facility] on 08/07/21 to [facility]. After receiving first round of chemotherapy for lung cancer, patient was admitted to [facility] for obstipation which was treated and resolved while in [place]. He subsequently developed pneumonia which prompted transfer to [facility] via [facility] in [place]. Also was transitioned from [facility] for left lower extremity DVT to [facility] during [place] hospital stay. PMHx of lung cancer receiving treatment with radiation and chemotherapy, COPD, DM, HTN, BPH, cirrhosis, A-fib, Left Lower Extremity DVT, JULIAN, Chronic UTIs, and Hyperlipidemia. On initial assessment in [place], patient was found to have findings consistent with pneumonia facility acquired. Broad-spectrum antibiotics, steroids and nebulizer was started. Sepsis workup was completed. Echocardiogram was also ordered and cardiology consulted for A-fib. On 08/08 patients status dramatically improved after first night in hospital. Refresh tears started for dry eyes. Remeron started for severe insomnia and timing of steroids were also changed to not disturb patient's sleep cycle. Blood sugars were initially elevated; therefore, insulin increased. On 08/09, hemoglobin was at 6.3, transfusion given which raised hemoglobin to 9.3, Lasix given after transfusion. Constipation issues started again, so laxatives were started. Voiding well with no issues. On 08/10 patient continued to receive supportive care. Legs were wrapped with reji wraps due to swelling and patient was also being weaned off of steroids. Had high sugars from steroids, Eliquis and aspirin restarted, no pain reported, patient is continuing to breathe better. On 08/11 patient again says hes doing a lot better and not having any shortness of breath. No pain reported. Hemoglobin stabilized, blood sugars reached a low of 56 on 08/11 at 1509 and insulin adjusted. Voiding well. Steroids were changed from IV to PO. Constipation continued so mag citrate and soapsuds enema was added to treatment regimen, patient then had successful movement of his bowels. In summary, throughout the course of stay pneumonia improved, shortness of breath continue to improve as well. Patient stated that he feels much better than when he was admitted and is ready to get out of the hospital. Review of Systems General: No Chills, No Fatigue HEENT: No Head Aches, No Visual Changes Pulmonary: No Dyspnea, No Cough Cardiovascular: No: Chest Pain, Palpitations Gastrointestinal: No: Nausea, Vomiting, Constipation Genitourinary: No Dysuria, No Frequency, No Incontinence Musculoskeletal: No: neck pain, back pain Neurological: No: Weakness, Numbness Objective Exam Last Set of Vital Signs Vital Signs Date Time Temp Pulse Resp B/P (MAP) Pulse Ox O2 Delivery O2 Flow Rate FiO2 08/12/21 10:39 Nasal Cannula 08/12/21 07:26 37.0 109 20 176/76 (109) 100 3.50 Capillary Refill : I&O Intake and Output 08/12/21 00:00 Intake Total 3347 ml Balance 3347 ml Intake Oral 2627 ml IV Total 720 ml # Voids 17 # Bowel Movements 9 General: Alert, Oriented X3, Cooperative, No Acute Distress, Other (Obese Male) HEENT: PERRLA, EOMI Neck: Supple Lungs: Clear to Auscultation, Normal Air Movement Heart: Regular Rate, Normal S1, Normal S2, No Murmurs Abdomen: Normal Bowel Sounds Extremities: No Clubbing, No Cyanosis, Other (Bilateral lower extremity edema. Currently wrapped with reji wrap.) Skin: No Rashes, No Significant Lesion Neuro: Normal Speech Psych/Mental Status: Mental Status NL, Mood NL Results Lab Laboratory Tests 08/11/21 15:09: Glucometer 56*L 08/11/21 15:59: Glucometer 83 08/11/21 20:15: Glucometer 129H 08/12/21 05:20: White Blood Count 4.6, Red Blood Count 3.22L, Hemoglobin 9.7L, Hematocrit 33L, Mean Corpuscular Volume 101H, Mean Corpuscular Hemoglobin 30, Mean Corpuscular Hemoglobin Concent 30L, Red Cell Distribution Width 20.2H, Platelet Count 68L, Mean Platelet Volume 11.1, Immature Granulocyte % (Auto) 1, Neutrophils (%) (Auto) 80H, Lymphocytes (%) (Auto) 10L, Monocytes (%) (Auto) 8, Eosinophils (%) (Auto) 0, Basophils (%) (Auto) 0, Neutrophils # (Auto) 3.7, Lymphocytes # (Auto) 0.5L, Monocytes # (Auto) 0.4, Eosinophils # (Auto) 0.0, Basophils # (Auto) 0.0, Immature Granulocyte # (Auto) 0.1, Percent Immature Platelet Fraction 5.6, Sodium Level 136, Potassium Level 4.3, Chloride Level 100, Carbon Dioxide Level 26, Anion Gap 10, Blood Urea Nitrogen 25H, Creatinine 1.00, Estimat Glomerular Filtration Rate 78, BUN/Creatinine Ratio 25, Glucose Level 104, Calcium Level 8.8, Corrected Calcium 9.4, Total Bilirubin 0.7, Aspartate Amino Transf (AST/SGOT) 26, Alanine Aminotransferase (ALT/SGPT) 27, Alkaline Phosphatase 103, Total Protein 5.6L, Albumin 3.3 Microbiology 08/07/21 Blood Culture - Preliminary, Resulted No growth Assessment/Plan Assessment/Plan Assess & Plan/Chief Complaint Assessment: Hospital-acquired pneumonia placed on meropenem and vancomycin Acute on chronic respiratory failure Hypercapnia on ABG from [place] yesterday 7.38/58/86 Supplemental oxygen at home COPD with exacerbation placed on IV steroids and transition to p.o. JULIAN noncompliant with CPAP BPH Urinary retention requiring Ibarra catheter now dc and voiding well Chronic UTIs Lung cancer status post 1 round of chemotherapy 4 weeks ago Severe anemia requiring 1 unit of blood last week on 07/30/2021 and again 08/09/2021 Status post severe constipation resolved previously but more constipated on 08/11/2021, mag citrate soapsuds enema started which improved constipation Cirrhosis has appointment with hepatology Dr. Skaggs at on 08/19/2021 Thrombocytopenia Leukopenia Hypertension Hyperlipidemia Atrial fibrillation diagnosis during previous hospital stay 2 weeks ago transition to Eliquis this hospital stay and DC Lovenox Left lower extremity DVT status post Lovenox treatment now on Eliquis Morbid obesity BMI 41 Marlon filter placement 20 years ago Gastrointestinal perforation 20 years ago requiring extensive surgery Insomnia Dry eyes Plan: Transition antibiotics from IV to PO Discharge Nebulizers Cardiology consulted [facility] at discharge to RAMEZ Kenney DO 08/14/21 0521: Supervisory-Addendum Brief Verification & Attestation Participated in pt care: history, MDM, physical Personally performed: exam, history, MDM, supervision of care Care discussed with: Medical Student Procedures: n/a Results interpretation: Verified all documentation Verification and Attestation of Medical Student E/M Service A medical student performed and documented this service in my presence. I reviewed and verified all information documented by the medical student and made modifications to such information, when appropriate. I personally performed the physical exam and medical decision making. Ramez Ngo, Aug 14, 2021,05:21 ALEXA SETHI Aug 12, 2021 11:07 RAMEZ NGO DO Aug 14, 2021 05:21
[2021-08-12 11:40] VITALS: BP 146/68
[2021-08-12 15:10] VITALS: BP 149/70
[2021-08-12] MEDS: TAMSULOSIN 0.4 MG (FLOMAX) CAP PO SCH (16:17)
--- NOTE | 2021-08-12 16:50 | Progress Note - Cardiology ---
Cardiology SOAP Progress Note Subjective: No cp or palp No dizziness Gen weakness No n/v/d Shortness of breath improving Objective: I&O/Vital Signs 08/12/21 08/12/21 08/12/21 08/12/21 07:00 07:22 07:26 07:40 Temp 36.2 37.0 Pulse 57 97 109 Resp 20 20 B/P (MAP) 137/70 (92) 176/76 (109) Pulse Ox 97 100 O2 Delivery Nasal Cannula Simple Mask Nasal Cannula O2 Flow Rate 3.50 3.50 3.00 08/12/21 08/12/21 08/12/21 08/12/21 07:40 08:00 10:39 11:40 Temp 37.1 Pulse 65 Resp 18 B/P (MAP) 146/68 (94) Pulse Ox 99 85 O2 Delivery Nasal Cannula Nasal Cannula Nasal Cannula Nasal Cannula O2 Flow Rate 4.00 4.00 3.50 08/12/21 08/12/21 13:00 15:10 Temp 36.9 Pulse 55 63 Resp 18 B/P (MAP) 149/70 (96) Pulse Ox 93 O2 Delivery Nasal Cannula O2 Flow Rate 3.00 08/12/21 00:00 Intake Total 3097 ml Balance 3097 ml Weight (Pounds): 354 Weight (Ounces): 8.0 Weight (Calculated Kilograms): 160.757013 Constitutional: AAO x 3, well-developed, well-nourished Respiratory: No accessory muscle use, No respiratory distress; chest expansion is symmetric, chest is bilaterally symmetric, other (diminished bases bilat) Cardiovascular: irregularly irregular; No JVD; S1 and S2 Gastrointestional: distended; No guarding; audible bowel sounds (hyperactive BS) Genital/Rectal: other (urinary catheter in place to DD) Extremities: other (bilat pitting edema) Neurologic/Psychiatric: grossly intact (moves all extremities) Skin: No rash on exposed areas, No ulcerations on exposed areas Results/Procedures: Labs Laboratory Tests 08/11/21 20:15: Glucometer 129H 08/12/21 05:20: White Blood Count 4.6, Red Blood Count 3.22L, Hemoglobin 9.7L, Hematocrit 33L, Mean Corpuscular Volume 101H, Mean Corpuscular Hemoglobin 30, Mean Corpuscular Hemoglobin Concent 30L, Red Cell Distribution Width 20.2H, Platelet Count 68L, Mean Platelet Volume 11.1, Immature Granulocyte % (Auto) 1, Neutrophils (%) (Auto) 80H, Lymphocytes (%) (Auto) 10L, Monocytes (%) (Auto) 8, Eosinophils (%) (Auto) 0, Basophils (%) (Auto) 0, Neutrophils # (Auto) 3.7, Lymphocytes # (Auto) 0.5L, Monocytes # (Auto) 0.4, Eosinophils # (Auto) 0.0, Basophils # (Auto) 0.0, Immature Granulocyte # (Auto) 0.1, Percent Immature Platelet Fraction 5.6, Sodium Level 136, Potassium Level 4.3, Chloride Level 100, Carbon Dioxide Level 26, Anion Gap 10, Blood Urea Nitrogen 25H, Creatinine 1.00, Estimat Glomerular Filtration Rate 78, BUN/Creatinine Ratio 25, Glucose Level 104, Calcium Level 8. 8, Corrected Calcium 9.4, Total Bilirubin 0.7, Aspartate Amino Transf (AST/SGOT) 26, Alanine Aminotransferase (ALT/SGPT) 27, Alkaline Phosphatase 103, Total Protein 5.6L, Albumin 3.3 08/12/21 11:46: Glucometer 174H 08/12/21 12:39: Lab Scanned Report Transfusion Reaction Form 08/12/21 15:14: Glucometer 186H Microbiology 08/07/21 Blood Culture - Final, Complete No growth Laboratory Tests 08/11/21 06:30 08/12/21 05:20 A/P: Assessment: Pneumonia - management per medical services Anemia - undetermined etiology - management per Medical services Lung cancer - chemo tx - follows at [facility] Minimal troponin elevation - 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 [place] Silva[place] [facility] [place] first dx on 07-21-21. Exhibits NSR with first deg AV block on ECG done on 08/07/21 at this hospital - follows with Dr. Ford of cardiology services at [facility] - OAC with Eliquis - TTE of 12/04/18: LVEF 55-65%, grade 2 diastolic dysfunction of LV, PASP 52 mmHg, no evidence of endocarditis. 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 If held, we recommend the investigation and treatment of bleeding source be carried out VELMA so that OAC can be resumed Monitor lab closely EDWIGE MORALES MD FACP [facility] Aug 12, 2021 16:50
[2021-08-12] MEDS: CEFDINIR 300 MG (OMNICEF) CAP PO SCH (20:35)
[2021-08-12] MEDS: MIRTAZAPINE 15 MG (REMERON) TAB PO SCH (20:35)
[2021-08-12 20:39] VITALS: BP 147/65
[2021-08-13 00:10] VITALS: BP 149/64
[2021-08-13] MEDS: inSUlin ASPART (NovoLOG) 1 UNIT/0.01 ML (CHARGE PER UNIT) SC SCH ×4 (05:34→11:55)
[2021-08-13 05:57] LABS: BASOPHILS % (AUTO) 0 % (0-10); EOSINOPHILS # (AUTO) 0.1 10^3/uL (0.0-0.3); EOSINOPHILS % (AUTO) 1 % (0-10); HEMATOCRIT 35 % (40-54); HEMOGLOBIN 10.4 g/dL (13.3-17.7); LYMPHOCYTES # (AUTO) 0.5 10^3/uL (1.0-4.0); LYMPHOCYTES % (AUTO) 12 % (12-44); MEAN CORPUSCULAR HEMOGLOBIN 30 pg (25-34); MEAN CORPUSCULAR HGB CONC 30 g/dL (32-36); MEAN CORPUSCULAR VOLUME 101 fL (80-99); MEAN PLATELET VOLUME 11.4 fL (9.0-12.2); MONOCYTES # (AUTO) 0.4 10^3/uL (0.0-1.0); MONOCYTES % (AUTO) 9 % (0-12); NEUTROPHILS # (AUTO) 3.5 10^3/uL (1.8-7.8); NEUTROPHILS % (AUTO) 77 % (42-75); PLATELET COUNT 74 10^3/uL (130-400); WHITE BLOOD COUNT 4.6 10^3/uL (4.3-11.0)
[2021-08-13 06:06] LABS: ALBUMIN 3.4 GM/DL (3.2-4.5); POTASSIUM 4.2 MMOL/L (3.6-5.0)
[2021-08-13 06:07] LABS: CALCIUM 8.8 MG/DL (8.5-10.1)
[2021-08-13 06:08] LABS: TOTAL PROTEIN 5.7 GM/DL (6.4-8.2)
[2021-08-13 06:10] LABS: BILIRUBIN,TOTAL 0.7 MG/DL (0.1-1.0)
[2021-08-13 06:12] LABS: CREATININE SERUM 0.99 MG/DL (0.60-1.30)
[2021-08-13] MEDS: SUCRALFATE 1 GM (CARAFATE) TAB PO SCH ×2 (06:37→11:10)
[2021-08-13] MEDS: CYANOCOBALAMIN 1,000 MCG (VITAMIN B-12) TABLET PO SCH (06:37)
[2021-08-13] MEDS: BETHANECHOL 25 MG (URECHOLINE) TAB PO SCH ×2 (06:37→11:10)
[2021-08-13 07:51] VITALS: BP 150/69
[2021-08-13] MEDS: DOCUSATE SODIUM 100 MG (COLACE) CAP PO SCH (08:10)
[2021-08-13] MEDS: GABAPENTIN 300 MG (NEURONTIN) CAP PO SCH ×2 (08:10→11:55)
[2021-08-13] MEDS: SENNOSIDES 8.6 MG (SENOKOT) TAB PO SCH (08:10)
[2021-08-13] MEDS: CEFDINIR 300 MG (OMNICEF) CAP PO SCH (08:10)
[2021-08-13] MEDS: dilTIAZem120 MG (CARDIZEM CD) CAP PO SCH (08:10)
[2021-08-13] MEDS: predniSONE 20 MG TAB PO SCH (08:11)
[2021-08-13] MEDS: MELOXICAM 7.5 MG (MOBIC) TABLET PO SCH (08:11)
[2021-08-13] MEDS: meTOprolol TARTRATE 50 MG (LOPRESSOR) TAB PO SCH (08:11)
[2021-08-13] MEDS: APIXABAN 5 MG (ELIQUIS) TABLET PO SCH (08:11)
[2021-08-13] MEDS: LORATADINE (CLARITIN) 10 MG TAB PO SCH (08:11)
[2021-08-13] MEDS: SERTRALINE 100 MG (ZOLOFT) TAB PO SCH (08:11)
[2021-08-13] MEDS: FINASTERIDE (PROSCAR) 5 MG TAB PO SCH (08:11)
[2021-08-13] MEDS: PANTOPRAZOLE 40 MG (PROTONIX) TAB PO SCH (08:11)
[2021-08-13] MEDS: ARTIFICAL TEARS 0.4 ML UNIT DOSE (REFRESH PLUS) OU SCH ×2 (08:12→11:54)
[2021-08-13] MEDS: RT-ALBUTEROL/IPRATROPIUM 3 ML (DUONEB) VIAL INH SCH (08:13)
[2021-08-13] MEDS: RT--FLUTICASONE/SALMETEROL 113-14 (AIRDUO RespiCLICK) IH SCH (08:13)
--- NOTE | 2021-08-13 08:57 | Progress Note - Cardiology ---
Cardiology SOAP Progress Note Subjective: Sitting up in bed States he feels much better today Verbalizes he is upset that he is being discharged to [facility] today No c/o CP, SOB, palpitations Feels LE swelling is improved Objective: I&O/Vital Signs 08/13/21 08/13/21 08/13/21 08/13/21 00:10 01:00 07:51 08:00 Temp 36.2 36.2 Pulse 63 61 56 65 Resp 18 18 B/P (MAP) 149/64 (92) 150/69 (96) Pulse Ox 94 94 O2 Delivery Nasal Cannula Nasal Cannula O2 Flow Rate 3.00 3.00 08/13/21 08/13/21 08:00 08:13 Pulse Ox 98 O2 Delivery Nasal Cannula Nasal Cannula O2 Flow Rate 3.00 3.00 08/13/21 00:00 Intake Total 1940 ml Balance 1940 ml Weight (Pounds): 354 Weight (Ounces): 8.0 Weight (Calculated Kilograms): 160.226277 Constitutional: AAO x 3, well-developed, well-nourished Respiratory: No accessory muscle use, No respiratory distress; chest expansion is symmetric, chest is bilaterally symmetric, other (diminished bases bilat) Cardiovascular: irregularly irregular; No JVD; S1 and S2 Gastrointestional: distended; No guarding; audible bowel sounds (hyperactive BS) Genital/Rectal: other (urinary catheter in place to DD) Extremities: other (bilat pitting edema) Neurologic/Psychiatric: grossly intact (moves all extremities) Skin: No rash on exposed areas, No ulcerations on exposed areas Results/Procedures: Labs Laboratory Tests 08/12/21 11:46: Glucometer 174H 08/12/21 12:39: Lab Scanned Report Transfusion Reaction Form 08/12/21 15:14: Glucometer 186H 08/12/21 20:18: Glucometer 284H 08/13/21 05:30: Glucometer 173H 08/13/21 05:45: White Blood Count 4.6, Red Blood Count 3.44L, Hemoglobin 10.4L, Hematocrit 35L, Mean Corpuscular Volume 101H, Mean Corpuscular Hemoglobin 30, Mean Corpuscular Hemoglobin Concent 30L, Red Cell Distribution Width 20.3H, Platelet Count 74L, Mean Platelet Volume 11.4, Immature Granulocyte % (Auto) 1, Neutrophils (%) (Auto) 77H, Lymphocytes (%) (Auto) 12, Monocytes (%) (Auto) 9, Eosinophils (%) (Auto) 1, Basophils (%) (Auto) 0, Neutrophils # (Auto) 3.5, Lymphocytes # (Auto) 0.5L, Monocytes # (Auto) 0.4, Eosinophils # (Auto) 0.1, Basophils # (Auto) 0.0, Immature Granulocyte # (Auto) 0.1, Percent Immature Platelet Fraction 5.3, Sodium Level 136, Potassium Level 4.2, Chloride Level 99, Carbon Dioxide Level 28, Anion Gap 9, Blood Urea Nitrogen 22H, Creatinine 0.99, Estimat Glomerular Filtration Rate 79, BUN/Creatinine Ratio 22, Glucose Level 175H, Calcium Level 8.8, Corrected Calcium 9.3, Total Bilirubin 0.7, Aspartate Amino Transf (AST/SGOT) 29, Alanine Aminotransferase (ALT/SGPT) 35, Alkaline Phosphatase 110, Total Protein 5.7L, Albumin 3.4 Microbiology 08/07/21 Blood Culture - Final, Complete No growth Laboratory Tests 08/12/21 05:20 08/13/21 05:45 A/P: Assessment: Pneumonia - management per medical services Anemia - undetermined etiology - management per Medical services Lung cancer - chemo tx - follows at [facility] Minimal troponin elevation - 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 Da Silva's [place] [facility] [place] - first dx on 07-21-21. Exhibits NSR with first deg AV block on ECG done on 08/07/21 at this hospital - follows with Dr. Ford of cardiology services at [facility] - OAC with Eliquis - TTE of 12/04/18: LVEF 55-65%, grade 2 diastolic dysfunction of LV, PASP 52 mmHg, no evidence of endocarditis. 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 If held, we recommend the investigation and treatment of bleeding source be carried out VELMA so that OAC can be resumed (OAC has been continued by medical services) Discharging today per medical services Advise out pt f/u with his primary contract project manager REED De Luna INFANT CAREGIVER Aug 13, 2021 08:57
[2021-08-13] MEDS ORDERED: amLODIPine 5 MG (NORVASC) TAB PO ONE (10:30)
[2021-08-13] MEDS ORDERED: GLYC10.7 IH (10:57)
[2021-08-13] MEDS ORDERED: INSU100I14 SQ (10:57)
[2021-08-13] MEDS ORDERED: INSU100I29 SQ (10:57)
--- NOTE | 2021-08-13 10:59 | D/C HH Face to Face Order ---
D/C Face to Face Orders Reconcile Patient Problems Problems Reviewed?: Yes Instructions for Patient [facility] Patient Instructions/FollowUp: PCP Avinash in 1 week Physician to follow Patient: Avinash Discharge Diet for Home: ADA Diet Patient Problems: Anemia Lung cancer DM COPD Patient Data-Allergies,Ht & Wt Patient Allergies: Coded Allergies: No Known Drug Allergies (Unverified , 11/26/18) Height (Feet): 6 Height (Inches): 7.00 Weight (Pounds): 354 Weight (Ounces): 8.0 Home Health Need/Face to Face Date of Face to Face: Aug 13, 2021 Clinical Findings: Generalized weakness and fatigue, Instability, Muscle weakness I have seen Pt [id number]: Yes Discharged To: Home Diagnosis/Conditions: COPD Patient is Homebound due to: Surendra fall risk due to instabilty, Muscle weakness, Shortness of breath/distress Homebound Status Due to the above stated illness, injury or surgical procedure (medical condition or diagnosis) and associated clinical findings, the patient is homebound because of his/her inability to leave home except with aid of a supportive device and/or person AND leaving the home requires a considerable and taxing effort or is medically contraindicated. Pt req the following assistanc: Walker Home Health Nursing Orders Home Health Services Order: Nursing Services, [employer] Plant Operations Engineer-Evaluate & Treat, Physical Therapy-Evaluate & Treat Home Health Infusion Therapy Line Start Date: Aug 08, 2021 Certify Stmt I certify that this patient is under my care and that I, a nurse practitioner or a physician; a bakery assistant working with me, had a face to face encounter that -mt ets the physician face to face encounter requirements with this patient as dated. RAMEZ NGO DO Aug 13, 2021 10:59
--- NOTE | 2021-08-13 11:06 | Discharge Summary ---
Diagnosis/Chief Complaint Date of Admission Aug 07, 2021 at 11:18 Date of Discharge Discharge Date: Aug 13, 2021 Discharge Diagnosis Assessment: Hospital-acquired pneumonia placed on meropenem and vancomycin Acute on chronic respiratory failure Hypercapnia on ABG from [place] 7.3 Supplemental oxygen at home COPD JULIAN noncompliant with CPAP BPH Urinary retention requiring Ibarra catheter Chronic UTIs Lung cancer status post 1 round of chemotherapy 4 weeks ago Severe anemia requiring 1 unit of blood last week on 07/30/2021 Status post severe constipation now resolved Cirrhosis has appoint with hematology Dr. Skaggs at on 08/19/2021 Thrombocytopenia Leukopenia Hypertension Hyperlipidemia Atrial fibrillation diagnosis during previous hospital stay 2 weeks ago transition to [facility] this hospital stay and DC Lovenox Left lower extremity DVT status post Lovenox treatment now on Eliqu Morbid obesity BMI 41 [place] filter placement 20 years ago Gastrointestinal perforation 20 years ago requiring extensive surgery Plan: IV antibiotics Nebulizers Cardiology consult [facility] Home meds 08/13/2021: Discharge home with home health Nebulizer machine No longer needs detention placement Reason Hospital Visit CC: SOB HPI: This is a 76-year-old white male clinic pt of mine who presented as a transfer from [facility] after worsening SOB and elevated BNP in need of cardiology higher level of care. He remained on 2-3L of oxygen since last hospitalized the week before, when he was admitted for weakness and UTI. He ret urned this time for severe constipation and generalized weakness. He had received a unit of blood the week before. Chemotherapy had just been started for lung cancer. Patient was transition from [facility] for left lower extremity DVT to [facility] during the [place] hospital stay due to recent new onset A. fib episode the week before during his hospital stay. He is at this current time assessed and found to have findings consistent with pneumonia facility acquired. Antibiotic regimen initiated. Septic workup completed. Echocardiogram ordered and Dr. Curiel consulted. Discharge Summary Discharge Physical Examination Allergies: Coded Allergies: No Known Drug Allergies (Unverified , 11/26/18) Vitals & I&Os Vital Signs Date Time Temp Pulse Resp B/P (MAP) Pulse Ox O2 Delivery O2 Flow Rate FiO2 08/13/21 16:55 08/13/21 13:00 62 08/13/21 08:13 98 Nasal Cannula 3.00 08/13/21 07:51 36.2 18 General Appearance: Alert, Oriented X3, Cooperative Respiratory: Clear to Auscultation Cardiovascular: Regular Rate Psych/Mental Status: Mental Status NL Hospital Course Was the Problem List Reviewed?: Yes Discharge Summary Elian Gaffney is a 76-year-old male admitted to [facility] via [facility] in [place] due to pneumonia. Transferred from [facility] on 08/07/21 to [facility]. After receiving first round of chemotherapy for lung cancer, patient was admitted to [facility] for obstipation which was treated and reso lved while in [place]. He subsequently developed pneumonia which prompted transfer to [facility] via [facility] in [place]. Also was transitioned from [facility] for left lower extremity DVT to [facility] during [place] hospital stay. PMHx of lung cancer receiving treatment with radiation and chemotherapy, COPD, DM, HTN, BPH, cirrhosis, A-fib, Left Lower Extremity DVT, JULIAN, Chronic UTIs, and Hyperlipidemia. On initial assessment in [place], patient was found to have findings consistent with pneumonia facility acquired. Broad-spectrum antibiotics, steroids and nebulizer was started. Sepsis workup was completed. Echocardiogram was also ordered and cardiology consulted for A-fib. On 08/08 patients status dramatically improved after first night in hospital. Refresh te ars started for dry eyes. Remeron started for severe insomnia and timing of steroids were also changed to not disturb patient's sleep cycle. Blood sugars were initially elevated; therefore, insulin increased. On 08/09, hemoglobin was at 6.3, transfusion given which raised hemoglobin to 9.3, Lasix given after transfusion. Constipation issues started again, so laxatives were started. Voiding well with no issues. On 08/10 patient continued to receive supportive care. Legs were wrapped with reji wraps due to swelling and patient was also being weaned off of steroids. Had high sugars from steroids, Eliquis and aspirin restarted, no pain reported, patient is continuing to breathe better. On 08/11 patient again says hes doing a lot better and not having any shortness of breath. No pain reported. Hemoglobin stabilized, blood sugars reached a low of 56 on 08/11 at 1509 and insulin adjusted. Voiding well. Steroids were changed from IV to PO. Constipation continued so mag citrate and soapsuds enema was added to treatment regimen, patient then had successful movement of his bowels. In summary, throughout the course of stay pneumonia improved, shortness of breath continue to improve as well. Patient stated that he feels much better than when he was admitted and is ready to get out of the hospital. Labs (last 24 hrs) Laboratory Tests 08/07/21 12:49: Glucometer 238H 08/07/21 13:00: White Blood Count 3.7L, Red Blood Count 2.79L, Hemoglobin 8.4L, Hematocrit 28L, Mean Corpuscular Volume 100H, Mean Corpuscular Hemoglobin 30, Mean Corpuscular Hemoglobin Concent 30L, Red Cell Distribution Width 20.7H, Platelet Count 89L, M joshua Platelet Volume 11.1, Immature Granulocyte % (Auto) 1, Neutrophils (%) (Auto) 71, Lymphocytes (%) (Auto) 14, Monocytes (%) (Auto) 13H, Eosinophils (%) (Auto) 1, Basophils (%) (Auto) 1, Neutrophils # (Auto) 2.6, Lymphocytes # (Auto) 0.5L, Monocytes # (Auto) 0.5, Eosinophils # (Auto) 0.1, Basophils # (Auto) 0.0, Immature Granulocyte # (Auto) 0.0, Percent Immature Platelet Fraction 5.5, Sodium Level 137, Potassium Level 4.3, Chloride Level 97L, Carbon Dioxide Level 33H, Anion Gap 7, Blood Urea Nitrogen 14, Creatinine 0.88, Estimat Glomerular Filtration Rate 90, BUN/Creatinine Ratio 16, Glucose Level 258H, Lactic Acid Level 0.72, Calcium Level 8.6, Corrected Calcium 9.1, Total Bilirubin 2.0H, Aspartate Amino Transf (AST/SGOT) 16, Alanine Aminotransferase (ALT/SGPT) 8, Alkaline Phosphatase 115, Troponin I 0.032H, B-Type Natriuretic Peptide 342.7H, Total Protein 6.1L, Albumin 3.4 08/07/21 14:30: Urine Color YELLOW, Urine Clarity CLEAR, Urine pH 6.0, Urine Specific [place] 1.020, Urine Protein NEGATIVE, Urine Glucose (UA) NEGATIVE, Urine Ketones NEGATIVE, Urine Nitrite NEGATIVE, Urine Bilirubin NEGATIVE, Urine Urobilinogen 0.2, Urine Leukocyte Esterase 1+H, Urine RBC (Auto) 3+H, Urine RBC 10-25H, Urine WBC 10-25H, Urine Squamous Epithelial Cells NONE, Urine Renal Epithelial Cells NONE, Urine Crystals NONE, Urine Bacteria NEGATIVE, Urine Casts NONE, Urine Mucus NEGATIVE, Urine Culture Indicated NO 08/07/21 15:55: Glucometer 329H 08/07/21 20:07: Glucometer 378H 08/07/21 22:11: Glucometer 374H 08/08/21 02:04: Glucometer 317H 08/08/21 05:21: Glucometer 347H 08/08/21 05:42: White Blood Count 2.7L, Red Blood Count 2.60L, Hemoglobin 8.0L, Hematocrit 26L, Mean Corpuscular Volume 101H, Mean Corpuscular Hemoglobin 31, Mean Corpuscular Hemoglobin Concent 31L, Red Cell Distribution Width 20.4H, Platelet Count 88L, Mean Platelet Volume 11.8, Immature Granulocyte % (Auto) 1, Neutrophils (%) (Auto) 91H, Lymphocytes (%) (Auto) 5L, Monocytes (%) (Auto) 4, Eosinophils (%) (Auto) 0, Basophils (%) (Auto) 0, Neutrophils # (Auto) 2.5, Lymphocytes # (Auto) 0.1L, Monocytes # (Auto) 0.1, Eosinophils # (Auto) 0.0, Basophils # (Auto) 0.0, Immature Granulocyte # (Auto) 0.0, Neutrophils % (Manual) 90, Lymphocytes % (Manual) 5, Monocytes % (Manual) 3, Eosinophils % (Manual) 0, Basophils % (Manual) 0, Band Neutrophils 2, Polychromasia SLIGHT, Anisocytosis MODERATE, Macrocytosis SLIGHT, Elliptocytes SLIGHT, Sodium Level 135, Potassium Level 4.1, Chloride Level 97L, Carbon Dioxide Level 27, Anion Gap 11, Blood Urea Nitrogen 17, Creatinine 0.94, Estimat Glomerular Filtration Rate 85, BUN/Creatinine Ratio 18, Glucose Level 385H, Calcium Level 8.6, Corrected Calcium 9.2, Total Bilirubin 1.3H, Aspartate Amino Transf (AST/SGOT) 14, Alanine Aminotransferase (ALT/SGPT) 10, Alkaline Phosphatase 104, Total Protein 6.0L, Albumin 3.2 08/08/21 11:33: Glucometer 396H 08/08/21 14:00: Vancomycin Level Trough 14.7 08/08/21 15:55: Glucometer 206H 08/08/21 20:08: Glucometer 148H 08/09/21 03:42: White Blood Count 3.2L, Red Blood Count 2.13L, Hemoglobin 6.3#*L, Hematocrit 22L , Mean Corpuscular Volume 104H, Mean Corpuscular Hemoglobin 30, Mean Corpuscular Hemoglobin Concent 29L, Red Cell Distribution Width 20.5H, Platelet Count 79L, Mean Platelet Volume 10.7, Immature Granulocyte % (Auto) 1, Neutrophils (%) (Auto) 90H, Lymphocytes (%) (Auto) 7L, Monocytes (%) (Auto) 3, Eosinophils (%) (Auto) 0, Basophils (%) (Auto) 0, Neutrophils # (Auto) 2.8, Lymphocytes # (Auto) 0.2L, Monocytes # (Auto) 0.1, Eosinophils # (Auto) 0.0, Basophils # (Auto) 0.0, Immature Granulocyte # (Auto) 0.0, Percent Immature Platelet Fraction 4.8, S odium Level 137, Potassium Level 3.5L, Chloride Level 107, Carbon Dioxide Level 24, Anion Gap 6, Blood Urea Nitrogen 16, Creatinine 0.69, Estimat Glomerular Filtration Rate 97, BUN/Creatinine Ratio 23, Glucose Level 151H, Calcium Level 7.1L, Corrected Calcium 8.2L, Total Bilirubin 0.6, Aspartate Amino Transf (AST/SGOT) 15, Alanine Aminotransferase (ALT/SGPT) 10, Alkaline Phosphatase 73, Total Protein 4.5L, Albumin 2.6L 08/09/21 06:06: Glucometer 176H 08/09/21 11:14: Glucometer 348H 08/09/21 11:17: Glucometer 354H 08/09/21 14:15: Hemoglobin 9.3#L, Hematocrit 32L 08/09/21 15:21: Glucometer 292H 08/09/21 20:49: Glucometer 297H 08/10/21 06:13: Glucometer 228H 08/10/21 06:15: White Blood Count 4.2L, Red Blood Count 2.89L, Hemoglobin 9.0L, Hematocrit 30L, Mean Corpuscular Volume 103H, Mean Corpuscular Hemoglobin 31, Mean Corpuscular Hemoglobin Concent 30L, Red Cell Distribution Width 21.5H, Platelet Count 89L, Mean Platelet Volume 10.9, Immature Granulocyte % (Auto) 1, Neutrophils (%) (Auto) 89H, Lymphocytes (%) (Auto) 7L, Monocytes (%) (Auto) 4, Eosinophils (%) (Auto) 0, Basophils (%) (Auto) 0, Neutrophils # (Auto) 3.7, Lymphocytes # (Auto) 0.3L, Monocytes # (Auto) 0.2, Eosinophils # (Auto) 0.0, Basophils # (Auto) 0.0, Immature Granulocyte # (Auto) 0.0, Sodium Level 134L, Potassium Level 4.7, Chloride Level 98, Carbon Dioxide Level 27, Anion Gap 9, Blood Urea Nitrogen 25H , Creatinine 0.90, Estimat Glomerular Filtration Rate 89, BUN/Creatinine Ratio 28, Glucose Level 238H, Calcium Level 9.0, Corrected Calcium 9.5, Total Bilirubin 0.8, Aspartate Amino Transf (AST/SGOT) 16, Alanine Aminotransferase (ALT/SGPT) 15, Alkaline Phosphatase 93, Total Protein 5.8L, Albumin 3.4 08/10/21 10:06: Glucometer 315H 08/10/21 15:11: Glucometer 239H 08/10/21 20:29: Glucometer 210H 08/11/21 06:27: Glucometer 140H 08/11/21 06:30: White Blood Count 3.5L, Red Blood Count 2.95L, Hemoglobin 9.0L, Hematocrit 30L, Mean Corpuscular Volume 101H, Mean Corpuscular Hemoglobin 31, Mean Corpuscular Hemoglobin Concent 30L, Red Cell Distribution Width 20.7H, Platelet Count 76L, Mean Platelet Volume 11.6, Immature Granulocyte % (Auto) 1, Neutrophils (%) (Auto) 85H, Lymphocytes (%) (Auto) 8L, Monocytes (%) (Auto) 6, Eosinophils (%) (Auto) 0, Basophils (%) (Auto) 0, Neutrophils # (Auto) 3.0, Lymphocytes # (Auto) 0.3L, Monocytes # (Auto) 0.2, Eosinophils # (Auto) 0.0, Basophils # (Auto) 0.0, Immature Granulocyte # (Auto) 0.0, Percent Immature Platelet Fraction 6.0, Sodium Level 135, Potassium Level 4.5, Chloride Level 100, Carbon Dioxide Level 27, Anion Gap 8, Blood Urea Nitrogen 23H, Creatinine 0.82, Estimat Glomerular Filtration Rate 92, BUN/Creatinine Ratio 28, Glucose Level 149H, Calcium Level 8.9, Corrected Calcium 9.5, Total Bilirubin 0.7, Aspartate Amino Transf (AST/SGOT) 18, Alanine Aminotransferase (ALT/SGPT) 18, Alkaline Phosphatase 97, Total Protein 5.7L, Albumin 3.3 08/11/21 10:22: Glucometer 216H 08/11/21 15:09: Glucometer 56*L 08/11/21 15:59: Glucometer 83 08/11/21 20:15: Glucometer 129H 08/12/21 05:20: White Blood Count 4.6, Red Blood Count 3.22L, Hemoglobin 9.7L, Hematocrit 33L, Mean Corpuscular Volume 101H, Mean Corpuscular Hemoglobin 30, Mean Corpuscular Hemoglobin Concent 30L, Red Cell Distribution Width 20.2H, Platelet Count 68L, Mean Platelet Volume 11.1, Immature Granulocyte % (Auto) 1, Neutrophils (%) (Auto) 80H, Lymphocytes (%) (Auto) 10L, Monocytes (%) (Auto) 8, Eosinophils (%) (Auto) 0, Basophils (%) (Auto) 0, Neutrophils # (Auto) 3.7, Lymphocytes # (Auto) 0.5L, Monocytes # (Auto) 0.4, Eosinophils # (Auto) 0.0, Basophils # (Auto) 0.0, Immature Granulocyte # (Auto) 0.1, Percent Immature Platelet Fraction 5.6, Sodium Level 136, Potassium Level 4.3, Chloride Level 100, Carbon Dioxide Level 26, Anion Gap 10, Blood Urea Nitrogen 25H, Creatinine 1.00, Estimat Glomerular Filtration Rate 78, BUN/Creatinine Ratio 25, Glucose Level 104, Calcium Level 8.8, Corrected Calcium 9.4, Total Bilirubin 0.7, Aspartate Amino Transf (AST/SGOT) 26, Alanine Aminotransferase (ALT/SGPT) 27, Alkaline Phosphatase 103, Total Protein 5.6L, Albumin 3.3 08/12/21 11:46: Glucometer 174H 08/12/21 12:39: Lab Scanned Report Transfusion Reaction Form 08/12/21 15:14: Glucometer 186H 08/12/21 20:18: Glucometer 284H 08/13/21 05:30: Glucometer 173H 08/13/21 05:45: White Blood Count 4.6, Red Blood Count 3.44L, Hemoglobin 10.4L, Hematocrit 35L, Mean Corpuscular Volume 101H, Mean Corpuscular Hemoglobin 30, Mean Corpuscular Hemoglobin Concent 30L, Red Cell Distribution Width 20.3H, Platelet Count 74L, Mean Platelet Volume 11.4, Immature Granulocyte % (Auto) 1, Neutrophils (%) (Auto) 77H, Lymphocytes (%) (Auto) 12, Monocytes (%) (Auto) 9, Eosinophils (%) (Auto) 1, Basophils (%) (Auto) 0, Neutrophils # (Auto) 3.5, Lymphocytes # (Auto) 0.5L, Monocytes # (Auto) 0.4, Eosinophils # (Auto) 0.1, Basophils # (Auto) 0.0, Immature Granulocyte # (Auto) 0.1, Percent Immature Platelet Fraction 5.3, Sodium Level 136, Potassium Level 4.2, Chloride Level 99, Carbon Dioxide Level 28, Anion Gap 9, Blood Urea Nitrogen 22H, Creatinine 0.99, Estimat Glomerular Filtration Rate 79, BUN/Creatinine Ratio 22, Glucose Level 175H, Calcium Level 8.8, Corrected Calcium 9.3, Total Bilirubin 0.7, Aspartate Amino Transf (AST/SGOT) 29, Alanine Aminotransferase (ALT/SGPT) 35, Alkaline Phosphatase 110, Total Protein 5.7L, Albumin 3.4 08/13/21 11:15: Glucometer 205H Microbiology 08/07/21 Blood Culture - Final, Complete No growth Pending Labs Microbiology Date/Time Source Procedure Growth Status 08/07/21 13:05 Peripheral Rt Hand Blood Culture - Final No growth Complete 08/07/21 13:00 Peripheral Rt Ac Blood Culture - Final No growth Complete Laboratory Tests 08/07/21 12:49: Glucometer 238 08/07/21 13:00: White Blood Count 3.7, Red Blood Count 2.79, Hemoglobin 8.4, Hematocrit 28, Mean Corpuscular Volume 100, Mean Corpuscular Hemoglobin 30, Mean Corpuscular Hemoglobin Concent 30, Red Cell Distribution Width 20.7, Platelet Count 89, Mean Platelet Volume 11.1, Immature Granulocyte % (Auto) 1, Neutrophils (%) (Auto) 71, Lymphocytes (%) (Auto) 14, Monocytes (%) (Auto) 13, Eosinophils (%) (Auto) 1, Basophils (%) (Auto) 1, Neutrophils # (Auto) 2.6, Lymphocytes # (Auto) 0.5, Monocytes # (Auto) 0.5, Eosinophils # (Auto) 0.1, Basophils # (Auto) 0.0, Immature Granulocyte # (Auto) 0.0, Percent Immature Platelet Fraction 5.5, Sodium Level 137, Potassium Level 4.3, Chloride Level 97, Carbon Dioxide Level 33, Anion Gap 7, Blood Urea Nitrogen 14, Creatinine 0.88, Estimat Glomerular Filtration Rate 90, BUN/Creatinine Ratio 16, Glucose Level 258, Lactic Acid Level 0.72, Calcium Level 8.6, Corrected Calcium 9.1, Total Bilirubin 2.0, Aspartate Amino Transf (AST/SGOT) 16, Alanine Aminotransferase (ALT/SGPT) 8, Alkaline Phosphatase 115, Troponin I 0.032, B-Type Natriuretic Peptide 342.7, Total Protein 6.1, Albumin 3.4 08/07/21 14:30: Urine Color YELLOW, Urine Clarity CLEAR, Urine pH 6.0, Urine Specific [place] 1.020, Urine Protein NEGATIVE, Urine Glucose (UA) NEGATIVE, Urine Ketones NEGATIVE, Urine Nitrite NEGATIVE, Urine Bilirubin NEGATIVE, Urine Urobilinogen 0.2, Urine Leukocyte Esterase 1+, Urine RBC (Auto) 3+, Urine RBC 10-25, Urine WBC 10-25, Urine Squamous Epithelial Cells NONE, Urine Renal Epithelial Cells NONE, Urine Crystals NONE, Urine Bacteria NEGATIVE, Urine Casts NONE, Urine Mucus NEGATIVE, Urine Culture Indicated NO 08/07/21 15:55: Glucometer 329 08/07/21 20:07: Glucometer 378 08/07/21 22:11: Glucometer 374 08/08/21 02:04: Glucometer 317 08/08/21 05:21: Glucometer 347 08/08/21 05:42: White Blood Count 2.7, Red Blood Count 2.60, Hemoglobin 8.0, Hematocrit 26, Mean Corpuscular Volume 101, Mean Corpuscular Hemoglobin 31, Mean Corpuscular Hemoglobin Concent 31, Red Cell Distribution Width 20.4, Platelet Count 88, Mean Platelet Volume 11.8, Immature Granulocyte % (Auto) 1, Neutrophils (%) (Auto) 91, Lymphocytes (%) (Auto) 5, Monocytes (%) (Auto) 4, Eosinophils (%) (Auto) 0, Basophils (%) (Auto) 0, Neutrophils # (Auto) 2.5, Lymphocytes # (Auto) 0.1, Monocytes # (Auto) 0.1, Eosinophils # (Auto) 0.0, Basophils # (Auto) 0.0, Immature Granulocyte # (Auto) 0.0, Neutrophils % (Manual) 90, Lymphocytes % (Manual) 5, Monocytes % (Manual) 3, Eosinophils % (Manual) 0, Basophils % (Manual) 0, Band Neutrophils 2, Polychromasia SLIGHT, Anisocytosis MODERATE, Macrocytosis SLIGHT, Elliptocytes SLIGHT, Sodium Level 135, Potassium Level 4.1, Chloride Level 97, Carbon Dioxide Level 27, Anion Gap 11, Blood Urea Nitrogen 17, Creatinine 0.94, Estimat Glomerular Filtration Rate 85, BUN/Creatinine Ratio 18, Glucose Level 385, Calcium Level 8.6, Corrected Calcium 9.2, Total Bilirubin 1.3, Aspartate Amino Transf (AST/SGOT) 14, Alanine Aminotransferase (ALT/SGPT) 10, Alkaline Phosphatase 104, Total Protein 6.0, Albumin 3.2 08/08/21 11:33: Glucometer 396 08/08/21 14:00: Vancomycin Level Trough 14.7 08/08/21 15:55: Glucometer 206 08/08/21 20:08: Glucometer 148 08/09/21 03:42: White Blood Count 3.2, Red Blood Count 2.13, Hemoglobin 6.3, Hematocrit 22, Mean Corpuscular Volume 104, Mean Corpuscular Hemoglobin 30, Mean Corpuscular Hemoglobin Concent 29, Red Cell Distribution Width 20.5, Platelet Count 79, Mean Platelet Volume 10.7, Immature Granulocyte % (Auto) 1, Neutrophils (%) (Auto) 90, Lymphocytes (%) (Auto) 7, Monocytes (%) (Auto) 3, Eosinophils (%) (Auto) 0, Basophils (%) (Auto) 0, Neutrophils # (Auto) 2.8, Lymphocytes # (Auto) 0.2, Monocytes # (Auto) 0.1, Eosinophils # (Auto) 0.0, Basophils # (Auto) 0.0, Immatu re Granulocyte # (Auto) 0.0, Percent Immature Platelet Fraction 4.8, Sodium Level 137, Potassium Level 3.5, Chloride Level 107, Carbon Dioxide Level 24, Anion Gap 6, Blood Urea Nitrogen 16, Creatinine 0.69, Estimat Glomerular Filtration Rate 97, BUN/Creatinine Ratio 23, Glucose Level 151, Calcium Level 7.1, Corrected Calcium 8.2, Total Bilirubin 0.6, Aspartate Amino Transf (AST/SGO T) 15, Alanine Aminotransferase (ALT/SGPT) 10, Alkaline Phosphatase 73, Total Protein 4.5, Albumin 2.6 08/09/21 06:06: Glucometer 176 08/09/21 11:14: Glucometer 348 08/09/21 11:17: Glucometer 354 08/09/21 14:15: Hemoglobin 9.3, Hematocrit 32 08/09/21 15:21: Glucometer 292 08/09/21 20:49: Glucometer 297 08/10/21 06:13: Glucometer 228 08/10/21 06:15: White Blood Count 4.2, Red Blood Count 2.89, Hemoglobin 9.0, Hematocrit 30, Mean Corpuscular Volume 103, Mean Corpuscular Hemoglobin 31, Mean Corpuscular Hemoglobin Concent 30, Red Cell Distribution Width 21.5, Platelet Count 89, Mean Platelet Volume 10.9, Immature Granulocyte % (Auto) 1, Neutrophils (%) (Auto) 89, Lymphocytes (%) (Auto) 7, Monocytes (%) (Auto) 4, Eosinophils (%) (Auto) 0, Basophils (%) (Auto) 0, Neutrophils # (Auto) 3.7, Lymphocytes # (Auto) 0.3, Monocytes # (Auto) 0.2, Eosinophils # (Auto) 0.0, Basophils # (Auto) 0.0, Immature Granulocyte # (Auto) 0.0, Sodium Level 134, Potassium Level 4.7, Chloride Level 98, Carbon Dioxide Level 27, Anion Gap 9, Blood Urea Nitrogen 25, Creatinine 0.90, Estimat Glomerular Filtration Rate 89, BUN/Creatinine Ratio 28, Glucose Level 238, Calcium Level 9.0, Corrected Calcium 9.5, Total Bilirubin 0.8, Aspartate Amino Transf (AST/SGOT) 16, Alanine Aminotransferase (ALT/SGPT) 15, Alkaline Phosphatase 93, Total Protein 5.8, Albumin 3.4 08/10/21 10:06: Glucometer 315 08/10/21 15:11: Glucometer 239 08/10/21 20:29: Glucometer 210 08/11/21 06:27: Glucometer 140 08/11/21 06:30: White Blood Count 3.5, Red Blood Count 2.95, Hemoglobin 9.0, Hematocrit 30, Mean Corpuscular Volume 101, Mean Corpuscular Hemoglobin 31, Mean Corpuscular Hemoglobin Concent 30, Red Cell Distribution Width 20.7, Platelet Count 76, Mean Platelet Volume 11.6, Immature Granulocyte % (Auto) 1, Neutrophils (%) (Auto) 85, Lymphocytes (%) (Auto) 8, Monocytes (%) (Auto) 6, Eosinophils (%) (Auto) 0, Basophils (%) (Auto) 0, Neutrophils # (Auto) 3.0, Lymphocytes # (Auto) 0.3, Monocytes # (Auto) 0.2, Eosinophils # (Auto) 0.0, Basophils # (Auto) 0.0, Immature Granulocyte # (Auto) 0.0, Percent Immature Platelet Fraction 6.0, Sodium Level 135, Potassium Level 4.5, Chloride Level 100, Carbon Dioxide Level 27, Anion Gap 8, Blood Urea Nitrogen 23, Creatinine 0.82, Estimat Glomerular Filtration Rate 92, BUN/Creatinine Ratio 28, Glucose Level 149, Calcium Level 8.9, Corrected Calcium 9.5, Total Bilirubin 0.7, Aspartate Amino Transf (AST/SGOT) 18, Alanine Aminotransferase (ALT/SGPT) 18, Alkaline Phosphatase 97, Total Protein 5.7, Albumin 3.3 08/11/21 10:22: Glucometer 216 08/11/21 15:09: Glucometer 56 08/11/21 15:59: Glucometer 83 08/11/21 20:15: Glucometer 129 08/12/21 05:20: White Blood Count 4.6, Red Blood Count 3.22, Hemoglobin 9.7, Hematocrit 33, Mean Corpuscular Volume 101, Mean Corpuscular Hemoglobin 30, Mean Corpuscular Hemoglobin Concent 30, Red Cell Distribution Width 20.2, Platelet Count 68, Mean Platelet Volume 11.1, Immature Granulocyte % (Auto) 1, Neutrophils (%) (Auto) 80, Lymphocytes (%) (Auto) 10, Monocytes (%) (Auto) 8, Eosinophils (%) (Auto) 0, Basophils (%) (Auto) 0, Neutrophils # (Auto) 3.7, Lymphocytes # (Auto) 0.5, Monocytes # (Auto) 0.4, Eosinophils # (Auto) 0.0, Basophils # (Auto) 0.0, Immature Granulocyte # (Auto) 0.1, Percent Immature Platelet Fraction 5.6, Sodium Level 136, Potassium Level 4.3, Chloride Level 100, Carbon Dioxide Level 26, Anion Gap 10, Blood Urea Nitrogen 25, Creatinine 1.00, Estimat Glomerular Filtration Rate 78, BUN/Creatinine Ratio 25, Glucose Level 104, Calcium Level 8.8, Corrected Calcium 9.4, Total Bilirubin 0.7, Aspartate Amino Transf (AST/SGOT) 26, Alanine Aminotransferase (ALT/SGPT) 27, Alkaline Phosphatase 103, Total Protein 5.6, Albumin 3.3 08/12/21 11:46: Glucometer 174 08/12/21 12:39: Lab Scanned Report Transfusion Reaction Form 08/12/21 15:14: Glucometer 186 08/12/21 20:18: Glucometer 284 08/13/21 05:30: Glucometer 173 08/13/21 05:45: White Blood Count 4.6, Red Blood Count 3.44, Hemoglobin 10.4, Hematocrit 35, Mean Corpuscular Volume 101, Mean Corpuscular Hemoglobin 30, Mean Corpuscular Hemoglobin Concent 30, Red Cell Distribution Width 20.3, Platelet Count 74, Mean Platelet Volume 11.4, Immature Granulocyte % (Auto) 1, Neutrophils (%) (Auto) 77, Lymphocytes (%) (Auto) 12, Monocytes (%) (Auto) 9, Eosinophils (%) (Auto) 1, Basophils (%) (Auto) 0, Neutrophils # (Auto) 3.5, Lymphocytes # (Auto) 0.5, Monocytes # (Auto) 0.4, Eosinophils # (Auto) 0.1, Basophils # (Auto) 0.0, Immature Granulocyte # (Auto) 0.1, Percent Immature Platelet Fraction 5.3, Sodium Level 136, Potassium Level 4.2, Chloride Level 99, Carbon Dioxide Level 28, Anion Gap 9, Blood Urea Nitrogen 22, Creatinine 0.99, Estimat Glomerular Filtration Rate 79, BUN/Creatinine Ratio 22, Glucose Level 175, Calcium Level 8.8, Corrected Calcium 9.3, Total Bilirubin 0.7, Aspartate Amino Transf (AST/SGOT) 29, Alanine Aminotransferase (ALT/SGPT) 35, Alkaline Phosphatase 110, Total Protein 5.7, Albumin 3.4 08/13/21 11:15: Glucometer 205 Discharge Home Medications: Active Scripts Active Bevespi Aerosphere Inhaler (Glycopyrrolate/Formoterol Fum) 10.7 Gm Hfa.aer.ad 10.7 Gm IH BID 14 Days Novolog Flexpen (Insulin Aspart) 300 Units/3 Ml Solution 10 Units SQ AC 14 Days Levemir Flextouch (Insulin Detemir) 100 Unit/1 Ml Insuln.pen 20 Unit SQ BID 14 Days Melatonin 3 Mg Tablet 6 Mg PO HS Senna Lax (Sennosides) 8.6 Mg Tablet 8.6 Mg PO BID Polyethylene Glycol 3350 17 Gm Powd.pack 17 Gm PO BID PRN Docusate Sodium 100 Mg Capsule 100 Mg PO BID Bisacodyl 10 Mg Supp.rect 10 Mg WA DAILY PRN Lactulose 20 Gm/30 Ml Solution 20 Gm PO BID PRN Mirtazapine 15 Mg Tab.rapdis 15 Mg PO HS Lipitor (Atorvastatin Calcium) 40 Mg Tablet 20 Mg PO DAILY Eliquis (Apixaban) 5 Mg Tablet 5 Mg PO BID Iprat-Albut 0.5-3(2.5) mg/3 ml (Ipratropium/Albuterol Sulfate) 3 Ml Ampul.neb 3 Ml INH TID Bethanechol Chloride 25 Mg Tablet 25 Mg PO ACHS Cefdinir 300 Mg Capsule 300 Mg PO BID Amlodipine Besylate 5 Mg Tablet 5 Mg PO DAILY Hold for SBP<130 Triamterene-Hctz 37.5-25 mg Cp (Triamterene/Hydrochlorothiazid) 1 Each Capsule 1 Ea PO DAILY Furosemide 40 Mg Tablet 40 Mg PO Q72H Losartan Potassium 100 Mg Tablet 25 Mg PO DAILY Neurontin (Gabapentin) 300 Mg Capsule 300 Mg PO TID Prochlorperazine Maleate 5 Mg Tablet 5 Mg PO Q6H PRN Pantoprazole Sodium 40 Mg Tablet.dr 40 Mg PO BID Diltiazem 24Hr ER (Diltiazem HCl) 120 Mg Cap.er.24h 120 Mg PO BID Metoclopramide HCl 5 Mg Tablet 5 Mg PO ACHS PRN Sucralfate 1 Gm Tablet 1 Gm PO TIDAC Meloxicam 15 Mg Tablet 15 Mg PO DAILY Aspirin EC (Aspirin) 81 Mg Tablet.dr 81 Mg PO DAILY Sertraline HCl 100 Mg Tablet 100 Mg PO DAILY Cetirizine HCl 10 Mg Tablet 10 Mg PO DAILY Vitamin B-12 (Cyanocobalamin (Vitamin B-12)) 2,000 Mcg Tablet 2,000 Mcg PO DAILY Finasteride 5 Mg Tablet 5 Mg PO DAILY Reported Metoprolol Tartrate 50 Mg Tablet 25 Mg PO BID TAKES OF A 50MG TAB Flomax (Tamsulosin HCl) 0.4 Mg Cap 0.4 Mg PO DAILY Instructions to patient/family Please see electronic discharge instructions given to patient. RAMEZ NGO DO Aug 13, 2021 11:06
--- NOTE | 2021-08-13 15:47 | Progress Note - Cardiology ---
Cardiology SOAP Progress Note Subjective: Shortness of breath has improved No cp or palp or syncope No n/v/d Objective: I&O/Vital Signs 08/13/21 08/13/21 08/13/21 08/13/21 07:51 08:00 08:00 08:13 Temp 36.2 Pulse 56 65 Resp 18 B/P (MAP) 150/69 (96) Pulse Ox 94 98 O2 Delivery Nasal Cannula Nasal Cannula Nasal Cannula O2 Flow Rate 3.00 3.00 3.00 08/13/21 13:00 Pulse 62 08/13/21 00:00 Intake Total 1940 ml Balance 1940 ml Weight (Pounds): 354 Weight (Ounces): 8.0 Weight (Calculated Kilograms): 160.565888 Constitutional: AAO x 3, well-developed, well-nourished Respiratory: No accessory muscle use, No respiratory distress; chest expansion is symmetric, chest is bilaterally symmetric, other (diminished bases bilat) Cardiovascular: irregularly irregular; No JVD; S1 and S2 Gastrointestional: distended; No guarding; audible bowel sounds (hyperactive BS) Genital/Rectal: other (urinary catheter in place to DD) Extremities: other (bilat pitting edema) Neurologic/Psychiatric: grossly intact (moves all extremities) Skin: No rash on exposed areas, No ulcerations on exposed areas Results/Procedures: Labs Laboratory Tests 08/12/21 20:18: Glucometer 284H 08/13/21 05:30: Glucometer 173H 08/13/21 05:45: White Blood Count 4.6, Red Blood Count 3.44L, Hemoglobin 10.4L, Hematocrit 35L, Mean Corpuscular Volume 101H, Mean Corpuscular Hemoglobin 30, Mean Corpuscular Hemoglobin Concent 30L, Red Cell Distribution Width 20.3H, Platelet Count 74L, Mean Platelet Volume 11.4, Immature Granulocyte % (Auto) 1, Neutrophils (%) (Auto) 77H, Lymphocytes (%) (Auto) 12, Monocytes (%) (Auto) 9, Eosinophils (%) (Auto) 1, Basophils (%) (Auto) 0, Neutrophils # (Auto) 3.5, Lymphocytes # (Auto) 0.5L, Monocytes # (Auto) 0.4, Eosinophils # (Auto) 0.1, Basophils # (Auto) 0.0, Immature Granulocyte # (Auto) 0.1, Percent Immature Platelet Fraction 5.3, Sodium Level 136, Potassium Level 4.2, Chloride Level 99, Carbon Dioxide Level 28, Anion Gap 9, Blood Urea Nitrogen 22H, Creatinine 0.99, Estimat Glomerular Filtration Rate 79, BUN/Creatinine Ratio 22, Glucose Level 175H, Calcium Level 8.8, Corrected Calcium 9.3, Total Bilirubin 0.7, Aspartate Amino Transf (AST/SGOT) 29, Alanine Aminotransferase (ALT/SGPT) 35, Alkaline Phosphatase 110, Total Protein 5.7L, Albumin 3.4 08/13/21 11:15: Glucometer 205H Microbiology 08/07/21 Blood Culture - Final, Complete No growth Laboratory Tests 08/12/21 05:20 08/13/21 05:45 A/P: Assessment: Pneumonia - management per medical services Anemia - undetermined etiology - management per Medical services Lung cancer - chemo tx - follows at [facility] Minimal troponin elevation - 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 Da Silva's notes from [facility] [place] of 08-04-21 - first dx on 07-21-21. Exhibits NSR with first deg AV block on ECG done on 08/07/21 at this hospital - follows with Dr. Ford of cardiology services at [facility] - OAC with Eliquis - TTE of 12/04/18: LVEF 55-65%, grade 2 diastolic dysfunction of LV, PASP 52 mmHg, no evidence of endocarditis. 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 If held, we recommend the investigation and treatment of bleeding source be carried out VELMA so that OAC can be resumed (OAC has been continued by medical services) Discharging today per medical services Advise out pt f/u with his primary student development dean EDWIGE Mcdaniel MD FACP FAC CCDS Aug 13, 2021 15:47
[2021-08-14] MEDS ORDERED: amLODIPine 5 MG (NORVASC) TAB PO SCH (09:00)
== END 2021-08-13 16:55 | disposition home health service (06) | DRG 193 ==
LOC: 4TH 11:18
PROVIDERS: ADMIT Internal Medicine; ATTEND Internal Medicine
PROC: 5A0935A Assistance with Respiratory Ventilation, Less than 24 Consecutive Hours, High Flow/Velocity Cannula (ICD-10-PCS; principal; 2021-08-07)
DX: J18.9 Pneumonia, unspecified organism (principal); J96.22 Acute and chronic respiratory failure with hypercapnia; I21.A1 Myocardial infarction type 2; J44.0 Chronic obstructive pulmonary disease with (acute) lower respiratory infection; C34.90 Malignant neoplasm of unspecified part of unspecified bronchus or lung; Z68.41 Body mass index [BMI] 40.0-44.9, adult; I48.92 Unspecified atrial flutter; I10 Essential (primary) hypertension; E11.9 Type 2 diabetes mellitus without complications; N40.1 Benign prostatic hyperplasia with lower urinary tract symptoms; R33.8 Other retention of urine; E66.01 Morbid (severe) obesity due to excess calories; K74.60 Unspecified cirrhosis of liver; G47.33 Obstructive sleep apnea (adult) (pediatric); D69.6 Thrombocytopenia, unspecified; E78.5 Hyperlipidemia, unspecified; K57.90 Diverticulosis of intestine, part unspecified, without perforation or abscess without bleeding; M19.91 Primary osteoarthritis, unspecified site; H54.3 Unqualified visual loss, both eyes; I48.0 Paroxysmal atrial fibrillation; H91.90 Unspecified hearing loss, unspecified ear; G47.00 Insomnia, unspecified; H04.129 Dry eye syndrome of unspecified lacrimal gland; K21.9 Gastro-esophageal reflux disease without esophagitis; K59.00 Constipation, unspecified; Z79.4 Long term (current) use of insulin; Z87.891 Personal history of nicotine dependence; Z86.711 Personal history of pulmonary embolism; Z86.718 Personal history of other venous thrombosis and embolism; Z99.81 Dependence on supplemental oxygen; Z79.82 Long term (current) use of aspirin
CPT/HCPCS: 36415; 36569; 71045; 76937; 80053; 80202; 81000; 82947; 83605; 83880; 84484; 85007; 85014; 85018; 85025; 85027; 86850; 86900; 86901; 86920; 87040; 93005; 93306; 94640; 94760

== ENCOUNTER → 2021-11-20 | Outpatient (CLI) | payer MEDICARE ==
[~2021-11-20] MED LIST changes: +ACET325T49 PO; +AMLO-250 PO; +APIX5TAB PO; +ATOR40TA PO; +ATOR40TA70 PO; +BETH25TA2 PO; +BISA10SU8 PR; +CALC200T40 PO; +CARB1DRO OU; +CEFD300C3 PO; +CODE118L3 PO; +CRAN400T3 PO; +CYCL10TA25 PO; +DILT-27 PO; +DOCU100C37 PO; +FLUT1BLS12 IH; +GABA300C PO; +GLYC10.7 IH; -GUAI-813 PO; +INSU100I14 SQ; +INSU100I29 SQ; +INSU100V16 SC; +INSU100V5 SQ; +IPRA3AMP31 INH; +LACT20SO2 PO; +MELA3TAB39 PO; +MELO15TA39 PO; +METO50TA15 PO; +METO5TAB2 PO; +MIRT-47 PO; +ONDA-105 PO; +OXC5T PO; +PANT40TA52 PO; +POLY17PO54 PO; +PROC5TAB9 PO; +SNN187T PO; +SUCR1TAB PO; +TRIA1CAP84 PO
[2021-11-20 12:00] VITALS: BP 118/47
== END | disposition home or self-care (01) ==
LOC: SDC 11:54
PROVIDERS: ATTEND Internal Medicine
DX: Z45.2 Encounter for adjustment and management of vascular access device (principal)